=== PATIENT | female | born 1950 | race Caucasian/White ===

== ENCOUNTER 2023-03-04 15:01 | Outpatient (OUT) | payer MEDICARE, OTHER, SELFPAY ==
--- NOTE | 2023-03-04 15:12 | XR_ITS ---
The [address] [address] Patient Name: JUSTIN DUGGAN MRN: [id number] date: 1950 Sex: F Assigned Patient Location: LAB Current Patient Location: [facility] Accession/Order Number: [id number] Exam Date: 03/04/2023 15:18 Report Date: 03/06/2023 23:05 At the request of: KATE PRADO Procedure: XR chest 2V EXAM: XR chest 2V HISTORY: Shortness Of Breath R06.02 COMPARISON: None TECHNIQUE: PA and lateral chest FINDINGS: No pneumothorax, pleural effusion or consolidation. Normal heart size. No acute osseous abnormality. XR/XR chest 2V IMPRESSION: No acute cardiopulmonary process. Electronically authenticated by: AMIRAH PRAKASH Date: 03/06/2023 23:05
== END 2023-03-04 15:02 | disposition home or self-care (01) ==
LOC: LAB 15:05
PROVIDERS: PCP Family Medicine; Visit Provider Family Medicine
DX: R06.02 Shortness of breath (principal)
CPT/HCPCS: 71046

== ENCOUNTER 2023-03-08 12:47 | Outpatient (OUT) | payer MEDICARE, OTHER, SELFPAY ==
--- NOTE | 2023-03-08 | ECG_ITS ---
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
== END 2023-03-08 12:48 | disposition home or self-care (01) ==
LOC: CARD 12:48
PROVIDERS: PCP Family Medicine; Visit Provider Family Medicine
DX: R06.02 Shortness of breath (principal)
CPT/HCPCS: 93005

== ENCOUNTER 2023-07-19 10:52 | Outpatient (OUT) | payer MEDICARE, OTHER, SELFPAY ==
--- NOTE | 2023-07-19 10:55 | MM_ITS ---
Patient Name: JUSTIN DUGGAN MR#: [id number] : 1950 Exam Date: 07/19/2023 Ordering Doctor: DR Ranajna Bull M.D. RADIOLOGY REPORT PROCEDURE: MM TOMOSYNTHESIS SCREENING BI COMPARISON: MG MAMM SCREEN 3D [place] CAD, 07/12/2022. MG MAMM SCREEN [place] W CAD, 01/16/2019. INDICATIONS: screening Calculator Name NCI Breast Cancer Risk Assessment Tool 5 Year Breast Cancer Risk 1.20% Lifetime Breast Cancer Risk 3.70% Personal Breast Cancer No Personal Ovarian Cancer No Treatments Surgery, radiation, chemotherapy. Family Cancers None LOCATION: The [facility] BREAST COMPOSITION: Almost entirely fatty. FINDINGS: DIAGNOSTIC CATEGORY 2--BENIGN FINDING. NO CHANGE FROM COMPARISON. Scattered benign-appearing calcifications are present. Scattered benign-appearing lymph nodes are present. RIGHT BREAST: No significant suspicious finding. LEFT BREAST: No significant suspicious finding. RECOMMENDATIONS: ROUTINE MAMMOGRAM AND CLINICAL EVALUATION IN 12 MONTHS. PLEASE NOTE: A NORMAL MAMMOGRAM DOES NOT EXCLUDE THE POSSIBILITY OF BREAST CANCER. A CLINICALLY SUSPICIOUS PALPABLE LUMP SHOULD BE BIOPSIED. Dictated by: Sameer Smith MD on 07/19/2023 at 12:33 Approved by: Sameer Smith MD on 07/19/2023 at 12:34
== END 2023-07-19 10:53 | disposition home or self-care (01) ==
LOC: MAMMO 10:52
PROVIDERS: PCP Family Medicine; Visit Provider Family Medicine
DX: Z12.31 Encounter for screening mammogram for malignant neoplasm of breast (principal)
CPT/HCPCS: 77063; 77067

== ENCOUNTER 2024-05-07 09:13 | Outpatient (OUT) | payer MEDICARE, OTHER, SELFPAY ==
--- OUTSIDE RECORDS SUMMARY | 2024-05-07 09:38 | XMS_ITS | CCD ---
Author Organization [facility] Care Team Providers Care Vocational Adviser Name Role Phone DR RANJANA PRADO Admitting Unavailable EVE, DR RANJANA Ji Attending Unavailable EVE, DR RANJANA Ji Primary Care Unavailable JOHANNA, KATI Dawkins Consulting Unavailable EVE, DR RANJANA Ji Consulting Unavailable EVE, DR RANJANA Ji Admitting Unavailable PRADO, DR RANJANA Ji Attending Unavailable EVE, DR RANJANA Ji Primary Care Unavailable PRADO, DR RANJANA Ji Consulting Unavailable EVE, DR RANJANA Ji Admitting Unavailable PRADO, DR RANJANA Ji Attending Unavailable EVE, DR RANJANA Ji Primary Care Unavailable EVE, DR RANJANA Ji Consulting Unavailable RANJANA PRADO Primary Care Physician [phone] Ranjana Prado Unavailable Ranjana Prado Unavailable Unavailable Unavailable Dr. Ranjana Prado Primary Care Unav ailDebbie Barba Attending Unavailable Debbie Nagy Referring Unavailable Eve, Dr. Ranjana Griffin Primary Care Unav ailable Debbie Nagy Attending Unavailable Ranjana Prado MD Primary Care Provider DEBBIE NAGY Attending Unavailable RANJANA PRADO Primary Care UnavailRanjana Goldman Primary Care Unavailable Lori Modi Attending Unavailable Lori Modi Admitting Unavailable Constantine Hilton Admitting UnavailRanjana Ureña Primary Care Unavailable Constantine Hilton Attending UnavailRANJANA Ureña Referring Unavailable RANJANA PRADO Primary Care Unavailable ANAYELI STEWARD Admitting Unavailable ANAYELI STEWARD Attending Unavailable RANJANA PRADO Primary Care Unavailable Arvind Berg Attending Unavaila ble Unavailable Primary Care Provider UnavailJOSIE Dodge Attending Unavailable PRADO, RANJANA Referring Unavailable TATTERSALL, SENG Attending Unavailable PRADO, RANJANA Referring Unavailable TATTERSALL, SENG Attending Unavailable PRADO, RANJANA Referring Unavailable TATTERSALL, SENG Attending Unavailable PRADO, RANJANA Referring Unavailable TATTERSALL, SENG Attending Unavailable PRADO, RANJANA Referring Unavailable TATTERSALL, SENG Attending Unavailable PRADO, RANJANA Referring Unavailable TATTERSALL, SENG Attending Unavailable PRADO, RANJANA Referring Unavailable TATTERSALL, SENG Attending Unavailable PRADO, RANJANA Referring Unavailable TATTERSALL, SENG Attending Unavailable PRADO, RANJANA Referring Unavailable LUCAS, JOSIE Attending Unavailable PRADO, RANJANA Referring Unavailable LUCAS, JOSIE Attending Unavailable PRADO, RANJANA Referring Unavailable LUCAS, JOSIE Attending Unavailable PRADO, RANJANA Referring Unavailable Allergies Allergy Classification Reported Allergen(s) Allergy Type Date of Onset Reaction(s) Facility (4 sources) Codeine; Translations: [CODEINE] Drug Allergy 03-05-20 13 [facility] Repository (2 sources) Phenazopyridine; Translations: [Pyridium] Drug Allergy 03-05-20 13 [facility] Repository (16 sources) Codeine; Translations: [codeine] Drug Allergy 03-25-20 23 rash [facility] (20 sources) Phenazopyridine; Translations: [phenazopyridine] Drug Allergy 02-21-20 21 Vomiting (disorder), Nausea/vomitin g [facility] (12 sources) prednisoLONE; Translations: [prednisolone ophthalmic] Drug Allergy 03-17-20 21 Swollen Lymph nodes [facility] (8 sources) Codeine Drug Allergy rash Luminetx Other (1 source) Codeine Drug Allergy 07-28-19 24 [facility] Repository (1 source) Phenazopyridine Drug Allergy 07-28-19 24 [facility] Repository Medications Current Medications Medication Drug Class(es) Dates Sig (Normalized) Sig (Original) [id number] actuat albuterol 0.09 mg/actuat metered dose inhaler (8 sources) beta2-Adrenergic Agonist Start: 01-06-2023 take 2 puff(s) by inhalation every four hours as needed Albuterol Sulfate HFA 108 (90 Base) MCG/ACT 2 puff Inhalation every 4 hrs prn Dec, Active Start: 01-06-2023 take 2 puff(s) by in halation every four hours as needed Albuterol Sulfate HFA 108 (90 Base) MCG/ACT 2 puff Inhalation every 4 hrs prn Dec, Active Start: 01-06-2023 take 2 puff(s) by in halation every four hours as needed Albuterol Sulfate HFA 108 (90 Base) MCG/ACT 2 puff Inhalation every 4 hrs prn Dec, Active amLODIPine 10 mg oral tablet (10 sources) Dihydropyridine Calcium Channel Valerie Start: 04-08-2023 amLODIPine 10 mg Tab Refills(s) 0 Start Date: 04/08/23 Status: Ordered Start: 01-19-2023 End: 03-25-2023 take 1 tablet by mouth once daily amLODIPine (Norvasc) 5 mg tablet Take 1 tablet (5 mg) by mouth once daily. 0 01/19/2023 03/25/2023 Discontinued (Dose adjustment) atorvastatin 40 mg oral tablet (20 sources) HMG-CoA Reductase Inhibitor Start: 01-19-2023 take 1 tablet by mouth once daily at bedtime atorvastatin (Lipitor) 40 mg tablet Take 1 tablet (40 mg) by mouth once daily at bedtime. 0 01/19/2023 Active Start: 07-15-2022 atorvastatin R efills(s) 0 Start Date: 07/15/22 Status: Ordered Start: 07-07-2022 take 1 tablet by kim th every twenty-four hours Atorvastatin Calcium 20 MG 1 tablet Orally Once a day for 90 days Jul, Active azithromycin 250 mg oral tablet (5 sources) Macrolide Antimicrobial Start: 05-05-2023 Azithromycin 250 MG as directed Orally 2 tabs po today, then 1 tab daily x 4 more days for Apr, Active Start: 01-06-2023 Azithromycin 2 50 MG as directed Orally 2 tabs po today, then 1 tab daily x 4 more days for Dec, Not-Taking cholestyramine resin 4000 mg powder for oral suspension (14 sources) Bile Acid Sequestrant Start: 04-08-2023 cholestyramine 4 g/9 g Oral Pwdr Refill(s) 0 Start Date: 04/08/23 Status: Ordered Start: 04-08-2023 cholestyramine 4 g/9 g Oral Pwdr Refill(s) 0 Start Date: 04/08/23 Status: Ordered Start: 12-06-2022 cholestyramine (Questran) 4 gram packet DISSOLVE 1 PACKET IN WATER OR JUICE AND TAKE DAILY 0 12/06/2022 Active Start: 12-03-2022 End: 03-03-2023 Questran 4 g/9 g oral powder = 1 packet(s), Oral, Daily, dissolve in water or juice, X 90 day(s), # 90 packet(s), Refills(s) 0, [id number], cm, 12/03/22 13:35:00 EDT, Height/Length Dosing, 99.6, kg, 12/03/22 13:35:00 EDT, Weight Dosing Start Date: 12/03/22 Stop Date: 03/03/23 Status: Ordered Start: 07-15-2022 Questran 4 g/9 g oral powder = 1 packet(s), Oral, Daily, # 30 EA, Refills(s) 11, Pharmacy: [facility]/pharmacy #[id number], 168, cm, 07/15/22 13:08:00 EST, Height/Length Dosing, 100.5, kg, 07/15/22 13:08:00 EST, Weight Dosing Start Date: 07/15/22 Status: Ordered Cholestyramine P owder USE DIRECTED. Quantity: 0 Refills: 0 Ordered: 19-Jan-2023 DO Active ciprofloxacin 500 mg oral tablet (3 sources) Quinolone Antimicrobial Start: 07-15-2022 End: 07-25-2022 take 1 tablet by mouth twice daily Cipro 500 mg Tab 500 mg = 1 tab(s), Oral, BID, X 10 day(s), # 20 tab(s), Refills(s) 0, Pharmacy: [facility]/pharmacy #[id number], 168, cm, 07/15/22 13:08:00 EST, Height/Length Dosing, 100.5, kg, 07/15/22 13:08:00 EST, Weight Dosing Start Date: 07/15/22 Stop Date: 07/25/22 Status: Ordered Levsin (9 sources) Start: 07-15-2022 Levsin Refills(s) 0 Start Date: 07/15/22 Status: Ordered levothyroxine sodium 0.15 mg oral tablet (20 sources) l-Thyroxine Start: 02-07-2023 take 1 tablet by mouth once daily levothyroxine (Synthroid, Levoxyl) 150 mcg tablet Take 1 tablet (150 mcg) by mouth once daily. 0 02/07/2023 Active Start: 03-31-2020 take 1 tablet by kim th once daily Synthroid 200 mcg (0.2 mg) Tab 200 mcg = 1 tab(s), Oral, Daily, Refills(s) 0 Start Date: 03/31/20 Status: Ordered take 1 tablet by kim th once daily Levothyroxine Sodium 150 MCG TAKE 1 TABLET BY MOUTH EVERY DAY for 90 Active losartan potassium 50 mg oral tablet (20 sources) Angiotensin 2 Receptor Valerie Start: 01-19-2023 take 1 tablet by mouth twice daily losartan (Cozaar) 50 mg tablet Take 1 tablet (50 mg) by mouth 2 times a day. 0 03/24/2023 Active Start: 03-31-2020 take 1 tablet by kim th once daily losartan 50 mg Tab 50 mg = 1 tab(s), Oral, Daily, Refills(s) 0 Start Date: 03/31/20 Status: Ordered methylPREDNISolone 4 mg oral tablet (5 sources) Corticosteroid Start: 05-05-2023 methylPREDNISo lone 4 MG as directed Orally for 6 days Apr, Active Start: 01-06-2023 methylPREDNISo lone 4 MG as directed Orally for 6 days Dec, Not-Taking 24 hr metoprolol succinate 50 mg extended release oral tablet (2 sources) beta-Adrenergic Valerie Start: 01-13-2023 take 1 tablet by mouth every twenty-four hours Metoprolol Succinate ER 50 MG 1 tablet Orally Once a day Jan, Active nitroglycerin 0.4 mg sublingual tablet (2 sources) Nitrate Vasodilator Start: 01-19-2023 nitroglycerin (Nitrostat) 0.[address] 1 tablet (0.4 mg) under the tongue every 5 minutes if needed for chest pain. 0 01/19/2023 Active Start: 01-19-2023 Nitroglycerin 0.4 MG Sublingual Tablet Sublingual as directed Quantity: 25 Refills: 5 Ordered: 19-Jan-2023 Debbie Nagy MD Start : 13-Sep-2023 Active new polyethylene glycol 3350 [id number] mg / potassium chloride 1480 mg / sodium bicarbonate 5720 mg / sodium chloride 96319 mg powder for oral solution (1 source) Osmotic Laxative Start: 08-02-2022 NuLYTELY Lorenzo oral powder for reconstitution See Instructions, 1 EA, Refill(s) 0, Prior to colonoscopy., [facility]/pharmacy #[id number], 168, cm, 07/15/22 13:08:00 EST, Height/Length Dosing, 100.5, kg, 07/15/22 13:08:00 EST, Weight Dosing Start Date: 08/02/22 Status: Ordered predniSONE 20 mg oral tablet (3 sources) Start: 03-04-2023 take 2 tablets by mouth every twenty-four hours predniSONE 20 MG 2 tablets Orally Once a day for 5 days Feb, Active Psyllium (6 sources) Start: 09-03-2022 Metamucil Refi lls(s) 0 Start Date: 09/03/22 Status: Ordered Vitamin D3 (10 sources) Start: 04-01-2020 take 25 ug by mouth once daily Vitamin D3 25 mcg, Oral, Daily, Prophylaxis Start Date: 04/01/20 Status: Ordered Completed/Discontinued Medications Medication Drug Class(es) Dates Sig (Normalized) Sig (Original) aspirin 325 mg oral tablet (1 source) Platelet Aggregation Inhibitor, Nonsteroidal Anti-inflammatory Drug Start: 01-19-2023 take 1 tablet by mouth once daily Aspirin 325 MG Oral Tablet TAKE 1 TABLET DAILY. Quantity: 90 Refills: 3 Ordered: 19-Jan-2023 Debbie Nagy MD Start : 19-Jan-2023 Active Problems Active Problems Problem Classification Problem Date Documented Da te Episodic/Chronic Anal and rectal conditions (7 sources) Radiation proctitis; Translations: [Radiation proctitis] Onset: 09-03-2022 Episodic Cancer of bladder (1 source) Malignant neoplasm of overlapping sites of bladder; Translations: [Malignant neoplasm of overlapping sites of bladder] Onset: 12-20-2023 Chronic Cancer of rectum and anus (11 sources) Malignant tumor of anus; 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, unspecified] Onset: 07-15-2022 Chronic Cancer of rectum and anus (11 sources) History of malignant neoplasm of rectum; Translations: [Personal history of other malignant neoplasm of rectum, rectosigmoid junction, and anus] Onset: 09-03-2022 Episodic Chronic obstructive pulmonary disease and bronchiectasis (2 sources) Bronchitis, not specified as acute or chronic Episodic Conditions associated with dizziness or vertigo (3 sources) Vertigo; Translations: [Dizziness and giddiness] 04-19-2024 Episodic Diabetes mellitus without complication (1 source) Impaired fasting glucose Episodic Disorders of lipid metabolism (18 sources) Pure hypercholesterolemia; Translations: [Pure hypercholesterolemia, unspecified] Onset: 03-25-2023 Chronic Disorders of teeth and jaw (2 sources) Jaw pain; Translations: [Jaw pain] Onset: 03-25-2023 03-25-2023 Episodic Diverticulosis and diverticulitis (7 sources) Diverticula of intestine; Translations: [Diverticulosis of intestine, part unspecified, without perforation or abscess without bleeding] Onset: 09-03-2022 Chronic Essential hypertension (20 sources) Essential (primary) hypertension; Translations: [Essential hypertension] Onset: 07-05-2022 Chronic Hemorrhoids (7 sources) Hemorrhoids; Translations: [Unspecified hemorrhoids] Onset: 09-03-2022 Episodic Intestinal infection (10 sources) Small bowel bacterial overgrowth syndrome 07-15-2022 Episodic Nausea and vomiting (4 sources) Nausea; Translations: [Nausea] Onset: 01-07-2023 Episodic Noninfectious gastroenteritis (2 sources) Noninfectious enteritis; Translations: [Noninfective gastroenteritis and colitis, unspecified] Onset: 07-14-2022 Episodic Other and unspecified benign neoplasm (7 sources) Polyp of colon; Translations: [Polyp of colon] Onset: 09-03-2022 Episodic Other and unspecified benign neoplasm (8 sources) History of polyp of colon; Translations: [Personal history of colonic polyps] Onset: 12-03-2022 Episodic Other gastrointestinal disorders (3 sources) Intestinal malabsorption; Translations: [Other intestinal malabsorption] Onset: 01-07-2023 Chronic Other gastrointestinal disorders (1 source) Disorder of intestine; Translations: [Other specified diseases of intestine] Onset: 07-15-2022 Episodic Other gastrointestinal disorders (9 sources) Urgent desire for stool; Translations: [Fecal urgency] Onset: 09-03-2022 Episodic Other gastrointestinal disorders (6 sources) Abdominal bloating 09-03-2022 Episodic Other gastrointestinal disorders (3 sources) Non-infective diarrhea 01-07-2023 Episodic Other lower respiratory disease (1 source) Dyspnea, unspecified Episodic Other lower respiratory disease (2 sources) Dyspnea; Translations: [Other respiratory abnormalities] Onset: 03-25-2023 03-25-2023 Episodic Other lower respiratory disease (1 source) Shortness of breath Episodic Other nervous system disorders (12 sources) Impairment of balance; Translations: [Other abnormalities of gait and mobility] Episodic Other nervous system disorders (1 source) Other abnormalities of gait and mobility Episodic Other nutritional; endocrine; and metabolic disorders (3 sources) Obesity; Translations: [Obesity, unspecified] Onset: 03-25-2023 03-25-2023 Chronic Other nutritional; endocrine; and metabolic disorders (2 sources) Obesity, unspecified; Translations: [Obesity, unspecified] Onset: 03-25-2023 Chronic Other nutritional; endocrine; and metabolic disorders (2 sources) Body mass index (BMI) 35.0-35.9, adult; Translations: [Body mass index (BMI) 35.0-35.9, adult] Onset: 03-25-2023 Chronic Other screening for suspected conditions (not mental disorders or infectious disease) (5 sources) Encounter for screening mammogram for malignant neoplasm of breast; Translations: [ENC SCR MAMMO MALIG NEOPLASM BREAST] Onset: 07-12-2022 Episodic Other skin disorders (1 source) Localized swelling, mass and lump, lower limb, bilateral; Translations: [Localized swelling, mass and lump, lower limb, bilateral] Onset: 08-05-2023 Episodic Screening and history of mental health and substance abuse codes (1 source) Ex-smoker; Translations: [Personal history of tobacco use] Episodic Comment on above: 25 years; Thyroid disorders (15 sources) Other specified hypothyroidism; Translations: [Hypothyroidism, unspecified] Onset: 09-25-2021 Chronic Unclassified (1 source) Malignant neoplasm of overlapping sites of bladder (CMS-HCC) [C67.8] Onset: 12-20-2023 Past or Other Problems Problem Classification Problem Date Documented Da te Episodic/Chronic Abdominal pain (1 source) Abdominal pain; Translations: [Unspecified abdominal pain] Onset: 12-03-2022 Episodic Coronary atherosclerosis and other heart disease (2 sources) Angina pectoris; Translations: [Other and unspecified angina pectoris] Onset: 03-25-2023 Resolved: 03-25-2023 03-25-2023 Chronic Nonspecific chest pain (5 sources) Atypical chest pain; Translations: [Other chest pain] Onset: 01-21-2023 03-25-2023 Episodic Other gastrointestinal disorders (2 sources) Swollen abdomen; Translations: [Abdominal distension (gaseous)] Onset: 09-03-2022 Episodic Other gastrointestinal disorders (5 sources) Diarrhea; Translations: [Diarrhea, unspecified] Onset: 09-03-2022 Episodic Unclassified (4 sources) Finding of sensation of abdomen 01-07-2023 Unclassified (1 source) Onset: 03-25-2023 03-25-2023 Results Test Name Value Interpretation Reference Range Facility Ambulatory Visit Summaryon 1 06-10-2023 Ambulatory Visit Summary Ambulatory Visit Summary YAA DUGGAN :1950 Visit Date:04/09/2024 Ambulatory Visit Instructions Your Diagnosis Bile salt-induced diarrhea History of anal cancer History of colon polyps Your Care Team Attending Physician - Otis GATES, Arvind Garcia Primary Care Physician - RANJANA PRADO MD This Is Your Medications List Contact prescribing physician if questions or concerns amlodipine (amLODIPine 10 mg Tab) atorvastatin cholecalciferol (Vitamin D3) cholestyramine (cholestyramine 4 g/9 g Oral Pwdr) levothyroxine (Synthroid 200 mcg (0.2 mg) Tab) losartan (losartan 50 mg Tab) psyllium (Metamucil) Procedures Performed Cystourethroscopy (separate procedure) (12/21/2022), Colonoscopy (08/17/2022), Cataract extraction and insertion of intraocular lens (04/01/2020), Cataract surgery, Hernia repair, Hysterectomy. Discharge Vitals Heart Rate (Peripheral) 67 Blood Pressure 137/82 Height 168 cm Height 66 in Weight 93 kg Weight 205.03 lb BMI 32.95 Medications What How Much When Instructions Unchanged amlodipine (amLODIPine 10 mg Tab) Contact prescribing physician if questions or concerns Unchanged atorvastatin Contact prescribing physician if questions or concerns Unchanged cholecalciferol (Vitamin D3) 25 Microgram By Mouth Every day Contact prescribing physician if questions or concerns Unchanged cholestyramine (cholestyramine 4 g/ 9 g Oral Pwdr) Contact prescribing physician if questions or concerns Unchanged levothyroxine (Synthroid 200 mcg (0.2 mg) Tab) 1 Tablets By Mouth Every day Contact prescribing physician if questions or concerns Unchanged losartan (losartan 50 mg Tab) 1 Tablets By Mouth Every day Contact prescribing physician if questions or concerns Unchanged psyllium (Metamucil) Contact prescribing physician if questions or concerns Medications and Immunizations Administered Not Given influenza virus vaccine, inactivated, Patient Refuses Allergies PrednisoLONE Acetate, Ophthalmic (Swollen Lymph nodes) Pyridium (Vomiting) codeine (Rash) Problems Ongoing - Any problem that you are currently receiving treatment for. Anal cancer Bile salt-induced diarrhea Colon polyps Diverticulosis Fecal urgency Hemorrhoids History of anal cancer History of colon polyps Radiation proctitis Small intestinal bacterial overgrowth (SIBO) Historical - Any problem that you are no longer receiving treatment for. Abdominal cramping Bloating Nausea Patient Survey You may receive a survey via text or e-mail asking about your office visit. Please share your experience with us by completing your survey. We appreciate your feedback and thank you for choosing us for your care. Normal [facility] Gastroenterology Office/Clin ic Noteon 04-09-2024 Gastroenterology Office/Clinic Note Gastroenterology Office/Clinic Note Chief Complaint Constipation HPI Staff Patient is a(n) 73 year old female who presents today for a(n) 1 year follow-up. Still taking Questran? No Any GI complaints? Constipation Patient questions when should she take Metamucil fiber gummy? Denies previous EGD. Colonoscopy due 2025. Denies Fhx colon cancer. Mother had Lupus. Denies blood thinners. Denies GLP-1 agonists. Last visit 04/08/23 w/[facility]: Assessment/Plan 1. 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 Fecal urgency occurring rarely. Celiac serology was normal 08/2022. Hx. cholecystectomy in 1976. Continue Questran as needed. Educated to ensure she is drinking plenty of water. 2. History of anal cancer (Z85.048: Personal history of other malignant neoplasm of rectum, rectosigmoid junction, and anus) Hx. anal cancer in 2006 that was treated with radiation and chemotherapy. 3. History of colon polyps (Z86.010: Personal history of colonic polyps) Due for repeat colonoscopy in 2025. Colonoscopy 08/17/22 w/Dr. Morris: 1. Normal TI 2. Normal colonic mucosa, random bx taken to r/o microscopic colitis 3. 5mm sessile polyp in ascending, removed completely with cold snare 4. 5mm sessile polyp in transverse, removed completely with cold snare 5. 5mm sessile polyp in sigmoid, removed completely with cold snare 6. Moderate diverticulosis throughout the colon 7. Mild radiation proctitis, spanning for 2 cm proximal to the dentate line 8. Stage II nonbleeding internal hemorrhoids Recommendations: Repeat colonoscopy in 3 years Pathology: Final Diagnosis (Verified) A: POLYP, TRANSVERSE COLON, POLYPECTOMY: ??? HYPERPLASTIC POLYP. B: POLYP, SIGMOID COLON, POLYPECTOMY: ??? TUBULAR ADENOMA. C: COLON, RANDOM BIOPSY: ??? COLONIC MUCOSA WITHIN NORMAL LIMITS. D: POLYP, ASCENDING COLON, POLYPECTOMY: ??? TUBULAR ADENOMA. Review of Systems PHQ Score Initial Depression Screen Score: 0 SCORE Physical Exam Vitals & Measurements HR: 67(Peripheral) BP: 137/82 HT: 66 in HT: 168 cm WT: 93 kg WT: 205.03 lb BMI: 32.95 Assessment/Plan 1. 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 History of anal cancer (Z85.048: Personal history of other malignant neoplasm of rectum, rectosigmoid junction, and anus) 2007 status post chemo and radiation, last colonoscopy 2022, multiple benign polyps, repeat in 2025 3. History of colon polyps (Z86.0100: Personal history of colon polyps, unspecified) Follow-up No qualifying data available Problem List/Past Medical History Ongoing Anal cancer Bile salt-induced diarrhea Colon polyps Diverticulosis Fecal urgency Hemorrhoids History of anal cancer History of colon polyps Radiation proctitis Small intestinal bacterial overgrowth (SIBO) Historical Abdominal cramping Bloating Nausea Procedure/Surgical History Cystourethroscopy (separate procedure) (12/21/2022), Colonoscopy (08/17/2022), Cataract extraction and insertion of intraocular lens (04/01/2020), Cataract surgery, Hernia repair, Hysterectomy. Medications amLODIPine 10 mg Tab atorvastatin cholestyramine 4 g/9 g Oral Pwdr, Not taking losartan 50 mg Tab, 50 mg= 1 tab(s), Oral, Daily Metamucil, Not taking Synthroid 200 mcg (0.2 mg) Tab, 200 mcg= 1 tab(s), Oral, Daily Vitamin D3, 25 mcg, Oral, Daily Allergies PrednisoLONE Acetate, Ophthalmic (Swollen Lymph nodes) Pyridium (Vomiting) codeine (Rash) Social History Alcohol Current. Liquor. 1-2 times per week., 04/09/2024 Substance Abuse - Denies Substance Abuse, 12/03/2022 Never., 04/09/2024 Tobacco Former smoker, quit more than 30 days ago Tobacco Use:. Never Smokeless Tobacco Use:. Cigarettes, 04/09/2024 Family History Heart disease: Brother. Lupus: Mother. Immunizations Vaccine Date Status Comments influenza virus vaccine, inactivated - Not Given Patient Refuses influenza virus vaccine, inactivated - Not Given Patient Refuses influenza virus vaccine, inactivated - Not Given Patient Refuses SARS-CoV-2 (COVID-19) [id number] 07/15/2022 Recorded SARS-CoV-2 (COVID-19) mRNA BNT-162b2 vax 04/17/2021 Recorded SARS-CoV-2 (COVID-19) mRNA BNT-162b2 vax 09/03/2020 Recorded SARS-CoV-2 (COVID-19) mRNA BNT-162b2 vax 08/13/2020 Recorded pneumococcal 13-valent vaccine 02/05/2019 Recorded Normal [facility] Comment on above: Result Comment: Elec tronically Signed By: Otis GATES, Arvind Garcia\.br\Date and Time Signed: 04/09/24 10:45 EST US venous duplex LE BIon US venous duplex LE [facility] [place] [address] Ultrasound Report Signed Patient: Yaa Duggan MR#: [id number] : 1950 Acct:[id number] Age/Sex: 72 / F ADM Date: 08/05/23 Loc: Room: Type: [facility] Attending Dr: Constantine Hilton MD Ordering Provider: Constantine Hilton MD Date of Service: 08/05/23 US/US venous duplex LE BI: R22.43 - Localized swelling, mass and lump, lower limb, b... Copies to: Constantine Hilton MD Bilateral lower extremity full functional venous duplex examination Indication for study: Swollen legs PROCEDURE: Color-flow duplex scanning is used to interrogate the venous anatomy of both lower extremities. There is no evidence for deep vein thrombosis in either leg. Bilaterally the common femoral vein, femoral vein, and popliteal vein show good compressibility, color-flow, and augmentation. There is greater than 5 seconds of reflux at the right saphenofemoral junction. The right greater saphenous vein is 5 mm below the saphenofemoral junction and then remains small throughout the rest of the limb. It does give rise to extensive varicosities that are 2 mm in diameter. Several perforators are noted but none are greater than 3 mm. The right lesser saphenous vein is competent and normal in size. In the patient's left lower extremity there is reflux in the saphenofemoral junction for 4 seconds and then continuous reflux in the first portion of the greater saphenous vein for greater than 5 seconds. The deep venous system is competent. There is greater than 5 seconds of reflux in the lesser saphenous vein. The left greater saphenous vein is 5 mm below the saphenofemoral junction but then is normal size throughout the thigh. It does give rise to 2 to 3 mm varicosities. The lesser saphenous vein is normal in size. US/US venous duplex LE BI IMPRESSION: No evidence for deep vein thrombosis in either leg. There is severe reflux in the right greater saphenous vein for greater than 5 seconds. There is greater than 5 seconds of reflux in the left greater saphenous vein. Scattered varicosities are noted in both lower extremities. Impression dictated by: Kenneth Santos M.D.08/09/2023 12:31 PM Dictation Location: [place] [address] Tech: Kristen Ines Transcribed By: RUTHANN 08/09/23 1231 Dictated By: Kenneth Santos MD 08/09/23 1229 Signed By: 08/09/23 1231 Normal [facility] Blood Urea Nitrogenon 2022 Urea nitrogen [Mass/Vol] 15 mg/dL Normal 7-25 [facility] Comment on above: Performed By: #### C REAT, CBC, BUN, LYTES, LIPID, PP #### [place] [id number] [facility] Coagulation Profileon 2022 aPTT Coag (Bld) [Time] 28.2 s Normal 25.1-36.5 [facility] Comment on above: Result Comment: A he matocrit value greater than 55% may lead to inaccurate results in coagulation testing. Patients having hematocrit values >55% require a special collection tube for coagulation studies. Please contact the laboratory at [phone] for redraw instructions. PERFORMED BY: [place] [address] PATHOLOGIST BROOM WORKER LYLY RIZO M.D. Performed By: #### C REAT, CBC, BUN, LYTES, LIPID, PP #### [address] INR Coag (PPP) [Relative time] 1.0 {INR} Normal [facility] Comment on above: Result Comment: INR Therapeutic Range A) Pre- and Peroperative OAT started two weeks before surgery. NOT HIP SURGERY: 1.5 - 2.5 HIP SURGERY: 2 - 3 B) Primary and secondary prevention of venous THROMBOSIS: 2 - 3 C) Active venous thrombosis, pulmonary embolism and prevention of recurrent venous thrombosis: 2 - 3 D) Prevention of arterial thromboembolism including patients with mechanical heart valves: 3 - 4.5 Performed By: #### C REAT, CBC, BUN, LYTES, LIPID, PP #### [address] PT Coag (PPP) [Time] 11.6 s Normal 9.0-12.9 [facility] Comment on above: Result Comment: A he matocrit value greater than 55% may lead to inaccurate results in coagulation testing. Patients having hematocrit values >55% require a special collection tube for coagulation studies. Please contact the laboratory at [phone] for redraw instructions. Performed By: #### C REAT, CBC, BUN, LYTES, LIPID, PP #### [place] [id number] [facility] Complete Blood Count Auto Di ffon 09-15-2023 Basophils (Bld) [#/Vol] 0.0 10*3/uL Normal 0.0-0.2 [facility] Comment on above: Result Comment: PERF ORMED BY: [place] [address] PATHOLOGIST BROOM WORKER LYLY RIZO M.D. Performed By: #### C REAT, CBC, BUN, LYTES, LIPID, PP #### [address] Basophils/100 WBC (Bld) 0.4 % Normal . [facility] Comment on above: Performed By: #### C REAT, CBC, BUN, LYTES, LIPID, PP #### [address] Eosinophils (Bld) [#/Vol] 0.1 10*3/uL Normal 0.0-0.45 [facility] Comment on above: Performed By: #### C REAT, CBC, BUN, LYTES, LIPID, PP #### [address] Eosinophils/100 WBC (Bld) 1.3 % Normal . [facility] Comment on above: Performed By: #### C REAT, CBC, BUN, LYTES, LIPID, PP #### [address] Erythrocyte distribution width (RBC) [Ratio] 14.0 % Normal 11.9-15.3 [facility] Comment on above: Performed By: #### C REAT, CBC, BUN, LYTES, LIPID, PP #### [address] Hematocrit (Bld) [Volume fraction] 40.4 % Normal 34.0-46.4 [facility] Comment on above: Performed By: #### C REAT, CBC, BUN, LYTES, LIPID, PP #### [address] Hemoglobin (Bld) [Mass/Vol] 13.5 g/dL Normal 11.8-15.4 [facility] Comment on above: Performed By: #### C REAT, CBC, BUN, LYTES, LIPID, PP #### [address] Lymphocytes (Bld) [#/Vol] 1.9 10*3/uL Normal 1.00-4.8 [facility] Comment on above: Performed By: #### C REAT, CBC, BUN, LYTES, LIPID, PP #### [address] Lymphocytes/100 WBC (Bld) 30.6 % Normal . [facility] Comment on above: Performed By: #### C REAT, CBC, BUN, LYTES, LIPID, PP #### [address] MCH (RBC) [Entitic mass] 29.1 pg Normal 24.7-34.3 [facility] Comment on above: Performed By: #### C REAT, CBC, BUN, LYTES, LIPID, PP #### [address] MCV (RBC) [Entitic vol] 86.8 fL Normal 80-100 [facility] Comment on above: Performed By: #### C REAT, CBC, BUN, LYTES, LIPID, PP #### [address] Mean Corpuscular HGB Conc 33.5 g/dL Normal 32.0-35.0 [facility] Comment on above: Performed By: #### C REAT, CBC, BUN, LYTES, LIPID, PP #### [address] Monocytes (Bld) [#/Vol] 0.6 10*3/uL Normal 0.0-0.8 [facility] Comment on above: Performed By: #### C REAT, CBC, BUN, LYTES, LIPID, PP #### [address] Monocytes/100 WBC (Bld) 9.1 % Normal . [facility] Comment on above: Performed By: #### C REAT, CBC, BUN, LYTES, LIPID, PP #### [address] Neutrophils (Bld) [#/Vol] 3.6 10*3/uL Normal 1.8-7.7 [facility] Comment on above: Performed By: #### C REAT, CBC, BUN, LYTES, LIPID, PP #### [address] Neutrophils/100 WBC (Bld) 58.6 % Normal . [facility] Comment on above: Performed By: #### C REAT, CBC, BUN, LYTES, LIPID, PP #### [address] NRBC% 0.1 /100{WBC} Normal 0-0.5 [facility] Comment on above: Performed By: #### C REAT, CBC, BUN, LYTES, LIPID, PP #### [address] Platelet mean volume (Bld) [Entitic vol] 8.2 fL Normal 6.3-10.7 [facility] Comment on above: Performed By: #### C REAT, CBC, BUN, LYTES, LIPID, PP #### [address] Platelets (Bld) [#/Vol] 208 10*3/uL Normal 150-450 [facility] Comment on above: Performed By: #### C REAT, CBC, BUN, LYTES, LIPID, PP #### [address] RBC (Bld) [#/Vol] 4.65 10*6/uL Normal 3.60-5.00 [facility] Comment on above: Performed By: #### C REAT, CBC, BUN, LYTES, LIPID, PP #### [address] WBC (Bld) [#/Vol] 6.1 10*3/uL Normal 3.8-11.[address] [facility] Comment on above: Performed By: #### C REAT, CBC, BUN, LYTES, LIPID, PP #### [facility] [address] [place] [address] [place] Creatinineon 01-21-2023 Creatinine [Mass/Vol] 0.84 mg/dL Normal 0.60-1.20 [facility] Comment on above: Performed By: #### C REAT, CBC, BUN, LYTES, LIPID, PP #### [facility] [address] Creatinine Clr Calc Pharmacy 73.20 [facility] Comment on above: Performed By: #### C REAT, CBC, BUN, LYTES, LIPID, PP #### [facility] [address] GFR/1.73 sq M.predicted MDRD (S/P/Bld) [Vol rate/Area] mL/min/{1.73_m2} [facility] Comment on above: Performed By: #### C REAT, CBC, BUN, LYTES, LIPID, PP #### [facility] [address] ECG 12 lead ECGon 01-21-2023 ECG 12 lead ECG [facility] [place] [address] Electrocardiograph Report Signed Patient: Yaa Duggan MR#: [id number] : 1950 Acct:[id number] Age/Sex: 72 / F ADM Date: 01/21/23 Loc: Room: Type: [facility] Attending Dr: Lori Modi DO Ordering Provider: Lori Modi DO Date of Service: 01/21/23 ECG/ECG 12 lead ECG: pre [facility] Copies to: Test Reason : Blood Pressure : / mmHG Vent. Rate : 058 BPM Atrial Rate : 058 BPM P-R Int : 142 ms QRS Dur : 076 ms QT Int : 426 ms P-R-T Axes : 032 -23 033 degrees QTc Int : 418 ms Sinus bradycardia Otherwise normal ECG No previous ECGs available Confirmed by STAN LARA DO ([id number]) on 01/21/2023 7:26:09 PM Referred By: Electronically Signed By:STAN LARA DO Transcribed By: MUS Signed By Stan Lara DO 01/21 [facility] Electrolyteson 01-21-2023 Anion gap [Moles/Vol] 10.7 mmol/L Normal 6.0-15.0 [facility] Comment on above: Performed By: #### C REAT, CBC, BUN, LYTES, LIPID, PP #### [facility] [address] Chloride [Moles/Vol] 106 mmol/L Normal 98-107 [facility] Comment on above: Performed By: #### C REAT, CBC, BUN, LYTES, LIPID, PP #### [facility] [address] CO2 [Moles/Vol] 27.9 mmol/L Normal 21.0-31.0 [facility] Comment on above: Performed By: #### C REAT, CBC, BUN, LYTES, LIPID, PP #### [facility] [address] Potassium [Moles/Vol] 3.6 mmol/L Normal 3.5-5.1 [facility] Comment on above: Performed By: #### C REAT, CBC, BUN, LYTES, LIPID, PP #### [facility] [address] Sodium [Moles/Vol] 141 mmol/L Normal 136-[address] [facility] Comment on above: Performed By: #### C REAT, CBC, BUN, LYTES, LIPID, PP #### [facility] [address] Lipid Panelon 01-21-2023 Cholesterol [Mass/Vol] 186 mg/dL Normal 140-200 [facility] Comment on above: Result Comment: Chol less than 200 mg/dl low risk Chol 201-239 mg/dl borderline risk Chol 240 mg/dl and greater high risk Performed By: #### C REAT, CBC, BUN, LYTES, LIPID, PP #### [facility] [address] Cholesterol in HDL [Mass/Vol] 46 mg/dL Normal 23-92 [facility] Comment on above: Result Comment: HDL CHOL ATP-III CLASSIFICATION Cardiovascular Risk HDL > or equal to 60 mg/dL LOW HDL < 40 mg/dL HIGH Performed By: #### C REAT, CBC, BUN, LYTES, LIPID, PP #### [facility] [address] Cholesterol.total/Cho lesterol in HDL [Mass ratio] 4.0 {ratio} Normal <5.0 [facility] Comment on above: Result Comment: PERF ORMED BY: [place] [address] PATHOLOGIST BROOM WORKER LYLY RIZO M.D. Performed By: #### C REAT, CBC, BUN, LYTES, LIPID, PP #### [address] LDL Cholesterol,Calculate d 108 mg/dL High 0-100 [facility] Comment on above: Result Comment: LDL ATP III CLASSIFICATION LDL less than 100 mg/dL Optimal LDL 100-129 mg/dL Near or above optimal LDL 130-159 mg/dL Borderline high LDL 160-189 mg/dL High LDL greater than 189 mg/dL Very high Performed By: #### C REAT, CBC, BUN, LYTES, LIPID, PP #### [address] Triglyceride w/Reflex 161 mg/dL High 0-149 [facility] Comment on above: Result Comment: TRIG ATP III CLASSIFICATION TRIG less than 150 mg/dL Normal TRIG 150-199 mg/dL Borderline high TRIG 200-500 mg/dL High TRIG greater than 500 mg/dL Very high Standard traceable to the Center for Disease Conrtrol and Prevention (CDC) test method. Performed By: #### C REAT, CBC, BUN, LYTES, LIPID, PP #### [facility] [address] VLDL CHOLESTEROL 32 mg/dL Normal [facility] Comment on above: Performed By: #### C REAT, CBC, BUN, LYTES, LIPID, PP #### [facility] [address] Office Visit (Cardiology)on 01-19-2023 Follow-up visit Diagnoses/Problems Assessed Family history of Carotid stenosis, non-symptomatic : Mother Family history of Carotid artery plaque : Mother Angina pectoris (413.9) (I20.9) Jaw pain (784.92) (R68.84) Dyspnea (786.09) (R06.00) Benign essential hypertension (401.1) (I10) Hyperlipidemia (272.4) (E78.5) Former smoker (V15.82) (Z87.891) 25 years Class 1 obesity with body mass index (BMI) of 34.0 to 34.9 in adult (278.00,V85.34) (E66.9,Z68.34) Orders Angina pectoris Start: Aspirin 325 MG Oral Tablet; TAKE 1 TABLET DAILY Start: Nitroglycerin 0.4 MG Sublingual Tablet Sublingual; as directed Angina pectoris, Benign essential hypertension Start: amLODIPine Besylate 5 MG Oral Tablet (Norvasc); TAKE 1 TABLET DAILY Basic Metabolic Panel; Status:Active - Retrospective Authorization; Requested for:[id number]; Angina pectoris, Dyspnea, Jaw pain Cardiac Catheterization Lab Procedures; Status:Active - Retrospective Authorization; Requested for:[id number]; Benign essential hypertension Start: Losartan Potassium 50 MG Oral Tablet; TAKE 1 TABLET TWICE DAILY Class 1 obesity with body mass index (BMI) of 34.0 to 34.9 in adult Healthy Weight Tips; Status:Complete - Retrospective Authorization; Done: [id number] Some eating tips that can help you lose weight.; Status:Complete - Retrospective Authorization; Done: [id number] Dyspnea IO EKG Electrocardiogram- 12 Lead; Status:Complete; Done: [id number] Hyperlipidemia Start: Atorvastatin Calcium 40 MG Oral Tablet (Lipitor); TAKE 1 TABLET AT BEDTIME ALT - Alanine Aminotransferase, Serum; Status:Active - Retrospective Authorization; Requested for:[id number]; AST; Status:Active - Retrospective Authorization; Requested for:[id number]; Lipid Panel; Status:Active - Retrospective Authorization; Requested for:[id number]; SocHx: Former smoker Tobacco Use Screening; Status:Complete; Done: [id number] Unlinked Stop: Atorvastatin Calcium 20 MG Oral Tablet Stop: Losartan Potassium 50 MG Oral Tablet Stop: Metoprolol Succinate ER 50 MG Oral Tablet Extended Release 24 Hour Patient Instructions Please bring all medicines, vitamins, and herbal supplements with you when you come to the office. Prescriptions will not be filled unless you are compliant with your follow up appointments or have a follow up appointment scheduled as per instruction of your physician. Refills should be requested at the time of your visit. Heart cath-tuesday Follow-up after testing completed Increase Loartan to 50mg one tablet two times daily Stop Toprol Start Norvasc 5 mg one daily Start aspirin 325 mg one daily Increase Lipitor to 40mg daily Nitrostat The provider reviewed the following test(s) and result(s) with the patient: ECG Chief Complaint YAA DUGGAN is being seen for a consultation for chest pain, dyspnea and jaw pain. 72-year-old white female who is been referred to me for evaluation of symptoms of dyspnea on exertion, chest pain and jaw pain. The patient recently has been noticing significant limitation of physical activities of progressive dyspnea, climbing 1 flight of stairs for is very difficult. She has been experiencing neck pain and jaw pain with activities, she has severe uncontrolled hyperlipidemia with LDL cholesterol around 200 mg/dL while she is on 20 mg daily of atorvastatin. Her brother had coronary bypass surgery in his 50s. She has had 25 years tobacco use in the past which she ended several years ago. She has hypertension which has been uncontrolled lately. She is nondiabetic but her last A1c was 5.8 from June 2022. She is prediabetic. She had no palpitations syncope or near syncope no claudications. She has no gastrointestinal symptoms and no urinary symptoms. Her pressure is elevated today as noted. She was started recently by her PCP on metoprolol which led to dropping her blood pressure significantly. Her cardiac and pulmonary examination were normal. EKG revealed normal sinus rhythm with no acute changes. Assessment/recommenda tions: 1?symptoms highly suggestive of crescendo angina. Patient has multiple uncontrolled risk factor for CAD. We discussed the options available for evaluation. I believe at this stage invasive cardiac evaluation is the most safe and cost effective way of identifying her problem. I discussed with the patient and her the procedure with benefits potential risks and other options of evaluation. We agreed to proceed with cardiac catheterization hopefully this week. Meanwhile aspirin will be started and we will double the atorvastatin up to 40 mg daily. 2?hypertension that is presently uncontrolled. We will add amlodipine 5 mg daily, discontinue metoprolol and increase losartan up to 50 mg twice daily. 3?severe hyperlipidemia uncontrolled on 20 mg daily of atorvastatin. We will double the dose and follow lipid profile along with lifestyle changes. 4?class I obesity, will address issue of increasing activities once we resolve the issue of her progressive (more content not included)... Normal [employer] Tobacco Screening.on 023 Adult depression screening assessment No [facility] 250 DO Work Phone: Tobacco use status [facility] b) No [facility] 250 DO Work Phone: MICRO OTHER TESTSOrdered By: Ester Hernandez on 07-20-2022 Fecal WBC Lactoferrin Negative (07/20/22 9:30 AM) Normal Negative [facility] Man Sero MG MAMM SCREEN 3D THOMPSON CADon 07-12-2022 MG MAMM SCREEN 3D THOMPSON CAD Patient: YAA DUGGAN Exam Date: 07/12/2022 : 1950 Gender:F Ordering : DR RANJANA PRADO M.D. Admission #: [id number] Family : Order #: [id number] CLICK HERE TO VIEW EXAM RADIOLOGY REPORT PROCEDURE: MAMMOGRAM SCREENING 3D BILATERAL CAD COMPARISON: MG MAMM THOMPSON SCRN W CAD DIG, 04/10/2013. MG MAMM SCREEN THOMPSON W CAD, 01/16/2019. INDICATIONS: Screening mammography Calculator Name NCI Breast Cancer Risk Assessment Tool 5 Year Breast Cancer Risk 1.20% Lifetime Breast Cancer Risk 3.90% Personal Breast Cancer No Personal Ovarian Cancer No Treatments Surgery, radiation, chemotherapy. Family Cancers None LOCATION: [facility] BREAST COMPOSITION: Almost entirely fatty. FINDINGS: DIAGNOSTIC CATEGORY 1--NEGATIVE. NO CHANGE FROM COMPARISON ASSESSMENT. Scattered benign-appearing calcifications are present. Scattered benign-appearing lymph nodes are present. RIGHT BREAST: No significant suspicious finding. LEFT BREAST: No significant suspicious finding. RECOMMENDATIONS: ROUTINE MAMMOGRAM AND CLINICAL EVALUATION IN 12 MONTHS. PLEASE NOTE: A NORMAL MAMMOGRAM DOES NOT EXCLUDE THE POSSIBILITY OF BREAST CANCER. A CLINICALLY SUSPICIOUS PALPABLE LUMP SHOULD BE BIOPSIED. Dictated by: Kati Smith MD on 07/12/2022 at 11:06 Approved by: Kati Smith MD on 07/12/2022 at 11:07 Normal [facility] CBC AUTO DIFFon 07-05-2022 BASO # 0.0 103/ul Normal 0.0-0.1 [facility] Comment on above: Performed By: #### C BC #### [facility] [address] [place] [address] Dr. Vitaliy Varela Basophils/100 WBC (Bld) 0.4 % Normal 0.2-2.0 [facility] Comment on above: Performed By: #### C BC #### [facility] [address] [place] [address] Dr. Vitaliy Varela EO # 0.1 103/ul Normal 0.0-0.7 [facility] Comment on above: Performed By: #### C BC #### [facility] [address] [place] [address] Dr. Vitaliy Varela Eosinophils/100 WBC (Bld) 1.6 % Normal 0.9-7.0 [facility] Comment on above: Performed By: #### C BC #### [facility] [address] [place] [address] Dr. Vitaliy Varela Erythrocyte distribution width (RBC) [Ratio] 13.7 % Normal 11.0-15.0 [facility] Comment on above: Performed By: #### C BC #### [facility] [address] [place] [address] Dr. Vitaliy Varela Hematocrit (Bld) [Volume fraction] 43.8 % Normal 36.0-48.0 [facility] Comment on above: Performed By: #### C BC #### [facility] [address] [place] [address] Dr. Vitaliy Varela Hemoglobin (Bld) [Mass/Vol] 14.5 g/dL Normal 12.0-16.0 [facility] Comment on above: Performed By: #### C BC #### [facility] [address] [place] [address] Dr. Vitaliy Varela IG # 0.01 10e3/ul Normal 0.00-0.03 [facility] Comment on above: Performed By: #### C BC #### [facility] [address] [place] [address] Dr. Vitaliy Varela IG % 0.2 % Normal 0.0-0.5 [facility] Comment on above: Performed By: #### C BC #### [facility] [address] [place] [address] Dr. Vitaliy Varela LYMPH # 1.7 103/ul Normal 1.2-3.8 [facility] Comment on above: Performed By: #### C BC #### [facility] [address] [place] [address] Dr. Vitaliy Varela Lymphocytes/100 WBC (Bld) 31.3 % Normal 20.5-60.0 [facility] Comment on above: Performed By: #### C BC #### [facility] [address] [place] [address] Dr. Vitaliy Varela MANUAL DIFF REQ NO Normal [facility] Comment on above: Performed By: #### C BC #### [facility] [address] [place] [address] Dr. Vitaliy Varela MCH (RBC) [Entitic mass] 27.8 pg Normal 26.7-34.0 [facility] Comment on above: Performed By: #### C BC #### [facility] [address] [place] [address] Dr. Vitaliy Varela MCHC (RBC) [Mass/Vol] 33.1 g/dL Normal 29.9-35.2 [facility] Comment on above: Performed By: #### C BC #### [facility] [address] [place] [address] Dr. Vitaliy Varela MCV (RBC) [Entitic vol] 84.1 fL Normal 81.0-99.0 [facility] Comment on above: Performed By: #### C BC #### [facility] [address] [place] [address] Dr. Vitaliy Varela MONO # 0.5 103/ul Normal 0.3-0.8 [facility] Comment on above: Performed By: #### C BC #### [facility] [address] [place] [address] Dr. Vitaliy Varela Monocytes/100 WBC (Bld) 9.3 % Normal 1.7-12.0 [facility] Comment on above: Performed By: #### C BC #### [facility] [address] [place] [address] Dr. Vitaliy Varela NEUT # 3.2 103/ul Normal 1.4-6.5 [facility] Comment on above: Performed By: #### C BC #### [facility] [address] [place] [address] Dr. Vitaliy Varela Neutrophils/100 WBC (Bld) 57.2 % Normal 43.0-75.0 [facility] Comment on above: Performed By: #### C BC #### [facility] [address] [place] [address] Dr. Vitaliy Varela Platelet mean volume (Bld) [Entitic vol] 9.2 fL Critically low 9.5-13.5 [facility] Comment on above: Performed By: #### C BC #### [facility] [address] [place] [address] Dr. Vitaliy Varela PLT 227 103/ul Normal 150-450 [facility] Comment on above: Performed By: #### C BC #### [facility] [address] [place] [address] Dr. Vitaliy Varela RBC 5.21 106/ul Normal 4.20-5.40 [facility] Comment on above: Performed By: #### C BC #### [facility] [address] [place] [address] Dr. Vitaliy Varela WBC 5.5 103/ul Normal 4.0-11.0 [facility] Comment on above: Performed By: #### C BC #### [facility] [address] [place] [address] Dr. Vitaliy Varela FREE T4on 07-05-2022 Free T4 [Mass/Vol] 1.44 ng/dL Normal 0.76-1.46 [facility] Comment on above: Performed By: #### F T4 #### [facility] [address] [address] [address] Vitaliy Varela GLYCOHEMOGLOBIN A1Con 2022 ADA RECOMMENDATION SEE BELOW Normal [facility] Comment on above: Result Comment: ADA RECOMMENDED LIMIT 4.0 - 6.0 ADA THERAPEUTIC TARGET < 7.0 ACTION SUGGESTED > 7.0 Performed By: #### A 1C #### [facility] [address] [address] [address] Vitaliy Varela Glucose [Mass/Vol] 120 mg/dL Normal [facility] Comment on above: Performed By: #### A 1C #### [facility] [address] [place] [address] Dr. Vitaliy Varela HbA1c (Bld) [Mass fraction] 5.8 % Normal 4.5-6.2 [facility] Comment on above: Performed By: #### A 1C #### [facility] [address] [place] [address] Dr. Vitaliy Varela LIPID PROFILEon 07-05-2022 CHOL-HDL RATIO NORM SEE BELOW Normal [facility] Comment on above: Result Comment: 3.3 - 4.4 LOW RISK 4.4 - 7.1 AVERAGE RISK 7.1 - 11.0 MODERATE RISK >11.0 HIGH RISK Performed By: #### C MP, TSH, LIPID #### [facility] [address] [place] [address] Dr. Vitaliy Varela Cholesterol [Mass/Vol] 287 mg/dL Critically high <=200 [facility] Comment on above: Performed By: #### C MP, TSH, LIPID #### [facility] [address] [place] [address] Dr. Vitaliy Varela Cholesterol in HDL [Mass/Vol] 50 mg/dL Normal 40-60 [facility] Comment on above: Performed By: #### C MP, TSH, LIPID #### [facility] [address] [address] [address] Vitaliy Varela Cholesterol in LDL [Mass/Vol] 200.4 mg/dL Normal [facility] Comment on above: Performed By: #### C MP, TSH, LIPID #### [facility] [address] [address] [address] Vitaliy Varela Cholesterol.total/Cho lesterol in HDL [Mass ratio] 5.7 {ratio} Normal [facility] Comment on above: Performed By: #### C MP, TSH, LIPID #### [facility] [address] [address] [address] Vitaliy Varela HDL NORMAL > or = 60 mg/dl - LO W CARDIOVASCULAR RISK <40 mg/dl - HIGH CARDIOVASCULAR RISK Normal [facility] Comment on above: Performed By: #### C MP, TSH, LIPID #### [facility] [address] [address] [address] Vitaliy Varela LDL CALC NORMAL SEE BELOW Normal [facility] Comment on above: Result Comment: <100 mg/dl OPTIMAL 100 - 129 mg/dl NEAR OR ABOVE OPTIMAL 130 - 159 mg/dl BORDERLINE HIGH 160 - 189 mg/dl HIGH >190 mg/dl VERY HIGH Performed By: #### C MP, TSH, LIPID #### [facility] [address] [address] [address] Vitaliy Varela Triglyceride [Mass/Vol] 183 mg/dL Critically high <=150 [facility] Comment on above: Performed By: #### C MP, TSH, LIPID #### [facility] [address] [address] [address] Vitaliy Varela VLDL CALC 36.6 mg/dL Normal [facility] Comment on above: Performed By: #### C MP, TSH, LIPID #### [facility] [address] [address] [address] Vitaliy Varela PROF 14(COMP METB)on 023 Albumin [Mass/Vol] 3.9 g/dL Normal 3.4-5.0 [facility] Comment on above: Performed By: #### C MP, TSH, LIPID ####[facility] [address] [address]Dr. Vitaliy Varela Albumin/Globulin [Mass ratio] 1.1 {ratio} Normal [facility] Comment on above: Performed By: #### C MP, TSH, LIPID ####[facility] [address] [id number]. Vitaliy Varela ALP [Catalytic activity/Vol] 85 U/L Normal 46-116 [facility] Comment on above: Performed By: #### C MP, TSH, LIPID ####[facility] [address] [id number]. Vitaliy Varela ALT [Catalytic activity/Vol] 38 U/L Normal 14-59 [facility] Comment on above: Performed By: #### C MP, TSH, LIPID ####[facility] [address] [address]Dr. Vitaliy Varela Anion gap [Moles/Vol] 13.1 mmol/L Normal [facility] Comment on above: Performed By: #### C MP, TSH, LIPID ####[facility] [address] [address]Dr. Vitaliy Varela AST [Catalytic activity/Vol] 32 U/L Normal 15-37 [facility] Comment on above: Performed By: #### C MP, TSH, LIPID ####[facility] [address] [id number]. Vitaliy Varela Bilirubin [Mass/Vol] 0.8 mg/dL Normal 0.2-1.0 [facility] Comment on above: Performed By: #### C MP, TSH, LIPID ####[facility] [address] [id number]. Vitaliy Varela Calcium [Mass/Vol] 8.6 mg/dL Normal 8.5-10.1 [facility] Comment on above: Performed By: #### C MP, TSH, LIPID ####[facility] [address] [id number]. Vitaliy Varela Chloride [Moles/Vol] 103 mmol/L Normal 98-107 [facility] Comment on above: Performed By: #### C MP, TSH, LIPID ####[facility] [address] [id number]. Vitaliy Varela CO2 [Moles/Vol] 26.6 mmol/L Normal 21.0-32.0 [facility] Comment on above: Performed By: #### C MP, TSH, LIPID ####[facility] [address] [address]Dr. Vitaliy Varela Creatinine [Mass/Vol] 0.72 mg/dL Normal 0.55-1.02 [facility] Comment on above: Performed By: #### C MP, TSH, LIPID ####[facility] [address] [id number]. Vitaliy Varela EGFR-AF DUTCH >60 Normal >=60 [facility] Comment on above: Performed By: #### C MP, TSH, LIPID ####[facility] [address] [address]Dr. Vitaliy Varela EGFR-NON AF DUTCH >60 Normal >=60 [facility] Comment on above: Performed By: #### C MP, TSH, LIPID ####[facility] [address] [address]Dr. Vitaliy Varela Globulin (S) [Mass/Vol] 3.7 g/dL Normal [facility] Comment on above: Performed By: #### C MP, TSH, LIPID ####[facility] [address] [address]Dr. Vitaliy Varela Glucose [Mass/Vol] 108 mg/dL Critically high 74-106 [facility] Comment on above: Performed By: #### C MP, TSH, LIPID ####[facility] [address] [address]Dr. Vitaliy Varela Potassium [Moles/Vol] 3.7 mmol/L Normal 3.5-5.1 [facility] Comment on above: Performed By: #### C MP, TSH, LIPID ####[facility] [address] [address]Dr. Vitaliy Varela Protein [Mass/Vol] 7.6 g/dL Normal 6.4-8.2 [facility] Comment on above: Performed By: #### C MP, TSH, LIPID ####[facility] [address] [address]Dr. Vitaliy Varela Sodium [Moles/Vol] 139 mmol/L Normal 136-145 [facility] Comment on above: Performed By: #### C MP, TSH, LIPID ####[facility] [address] [address]Dr. Vitaliy Varela Urea nitrogen [Mass/Vol] 13.0 mg/dL Normal 7.0-18.0 [facility] Comment on above: Performed By: #### C MP, TSH, LIPID ####[facility] [address] [address]Dr. Vitaliy Varela Urea nitrogen/Creatinine [Mass ratio] 18.1 mg/mg Normal [facility] Comment on above: Performed By: #### C MP, TSH, LIPID ####[facility] [address] [address]Dr. Vitaliy Varela TSHon 07-05-2022 TSH 0.570 uIU/mL Normal 0.358-3.740 [facility] Comment on above: Performed By: #### C MP, TSH, LIPID ####[facility] [address] [address]Dr. Vitaliy Varela CBC AUTO DIFFon 09-21-2021 BASO # 0.0 103/ul Normal 0.0-0.1 [facility] Comment on above: Performed By: #### C BC #### [facility] [address] [place] [address] Dr. Vitaliy Varela Basophils/100 WBC (Bld) 0.4 % Normal 0.2-2.0 [facility] Comment on above: Performed By: #### C BC #### [facility] [address] [place] [address] Dr. Vitaliy Varela EO # 0.1 103/ul Normal 0.0-0.7 [facility] Comment on above: Performed By: #### C BC #### [facility] [address] [place] [address] Dr. Vitaliy Varela Eosinophils/100 WBC (Bld) 2.6 % Normal 0.9-7.0 [facility] Comment on above: Performed By: #### C BC #### [facility] [address] [place] [address] Dr. Vitaliy Varela Erythrocyte distribution width (RBC) [Ratio] 14.2 % Normal 11.0-15.0 [facility] Comment on above: Performed By: #### C BC #### [facility] [address] [place] [address] Dr. Vitaliy Varela Hematocrit (Bld) [Volume fraction] 41.0 % Normal 36.0-48.0 [facility] Comment on above: Performed By: #### C BC #### [facility] [address] [place] [address] Dr. Vitaliy Varela Hemoglobin (Bld) [Mass/Vol] 13.1 g/dL Normal 12.0-16.0 [facility] Comment on above: Performed By: #### C BC #### [facility] [address] [place] [address] Dr. Vitaliy Varela IG # 0.03 10e3/ul Normal 0.00-0.03 [facility] Comment on above: Performed By: #### C BC #### [facility] [address] [place] [address] Dr. Vitaliy Varela IG % 0.6 % Critically high 0.0-0.5 [facility] Comment on above: Performed By: #### C BC #### [facility] [address] [place] [address] Dr. Vitaliy Varela LYMPH # 1.6 103/ul Normal 1.2-3.8 [facility] Comment on above: Performed By: #### C BC #### [facility] [address] [place] [address] Dr. Vitaliy Varela Lymphocytes/100 WBC (Bld) 29.8 % Normal 20.5-60.0 [facility] Comment on above: Performed By: #### C BC #### [facility] [address] [place] [address] Dr. Vitaliy Varela MANUAL DIFF REQ NO Normal [facility] Comment on above: Performed By: #### C BC #### [facility] [address] [place] [address] Dr. Vitaliy Varela MCH (RBC) [Entitic mass] 27.9 pg Normal 26.7-34.0 [facility] Comment on above: Performed By: #### C BC #### [facility] [address] [place] [address] Dr. Vitaliy Varela MCHC (RBC) [Mass/Vol] 32.0 g/dL Normal 29.9-35.2 [facility] Comment on above: Performed By: #### C BC #### [facility] [address] [place] [address] Dr. Vitaliy Varela MCV (RBC) [Entitic vol] 87.2 fL Normal 81.0-99.0 [facility] Comment on above: Performed By: #### C BC #### [facility] [address] [place] [address] Dr. Vitaliy Varela MONO # 0.6 103/ul Normal 0.3-0.8 [facility] Comment on above: Performed By: #### C BC #### [facility] [address] [place] [address] Dr. Vitaliy Varela Monocytes/100 WBC (Bld) 11.0 % Normal 1.7-12.0 [facility] Comment on above: Performed By: #### C BC #### [facility] [address] [place] [address] Dr. Vitaliy Varela NEUT # 3.0 103/ul Normal 1.4-6.5 [facility] Comment on above: Performed By: #### C BC #### [facility] [address] [place] [address] Dr. Vitaliy Varela Neutrophils/100 WBC (Bld) 55.6 % Normal 43.0-75.0 [facility] Comment on above: Performed By: #### C BC #### [facility] [address] [place] [address] Dr. Vitaliy Varela Platelet mean volume (Bld) [Entitic vol] 9.2 fL Critically low 9.5-13.5 [facility] Comment on above: Performed By: #### C BC #### [facility] [address] [place] [address] Dr. Vitaliy Varela PLT 230 103/ul Normal 150-450 [facility] Comment on above: Performed By: #### C BC #### [facility] [address] [place] [address] Dr. Vitaliy Varela RBC 4.70 106/ul Normal 4.20-5.40 [facility] Comment on above: Performed By: #### C BC #### [facility] [address] [place] [address] Dr. Vitaliy Varela WBC 5.4 103/ul Normal 4.0-11.0 [facility] Comment on above: Performed By: #### C BC #### [facility] [address] [place] [address] Dr. Vitaliy Varela FREE T4on 09-21-2021 Free T4 [Mass/Vol] 1.18 ng/dL Normal 0.76-1.46 [facility] Comment on above: Performed By: #### F T4 #### [facility] [address] [place] [address] Dr. Vitaliy Varela LIPID PROFILEon 09-21-2021 CHOL-HDL RATIO NORM SEE BELOW Normal [facility] Comment on above: Result Comment: 3.3 - 4.4 LOW RISK 4.4 - 7.1 AVERAGE RISK 7.1 - 11.0 MODERATE RISK >11.0 HIGH RISK Performed By: #### L IPID, CMP, TSH #### [facility] [address] [place] [address] Dr. Vitaliy Varela Cholesterol [Mass/Vol] 278 mg/dL Critically high <=200 [facility] Comment on above: Performed By: #### L IPID, CMP, TSH #### [facility] [address] [place] [address] Dr. Vitaliy Varela Cholesterol in HDL [Mass/Vol] 44 mg/dL Normal 40-60 [facility] Comment on above: Performed By: #### L IPID, CMP, TSH #### [facility] [address] [place] [address] Dr. Vitaliy Varela Cholesterol in LDL [Mass/Vol] 181.8 mg/dL Normal [facility] Comment on above: Performed By: #### L IPID, CMP, TSH #### [facility] [address] [address] [address] Vitaliy Varela Cholesterol.total/Cho lesterol in HDL [Mass ratio] 6.3 {ratio} Normal [facility] Comment on above: Performed By: #### L IPID, CMP, TSH #### [facility] [address] [address] [address] Vitaliy Varela HDL NORMAL > or = 60 mg/dl - LO W CARDIOVASCULAR RISK <40 mg/dl - HIGH CARDIOVASCULAR RISK Normal [facility] Comment on above: Performed By: #### L IPID, CMP, TSH #### [facility] [address] [address] [address] Vitaliy Varela LDL CALC NORMAL SEE BELOW Normal [facility] Comment on above: Result Comment: <100 mg/dl OPTIMAL 100 - 129 mg/dl NEAR OR ABOVE OPTIMAL 130 - 159 mg/dl BORDERLINE HIGH 160 - 189 mg/dl HIGH >190 mg/dl VERY HIGH Performed By: #### L IPID, CMP, TSH #### [facility] [address] [address] [address] Vitaliy Varela Triglyceride [Mass/Vol] 261 mg/dL Critically high <=150 [facility] Comment on above: Performed By: #### L IPID, CMP, TSH #### [facility] [address] [address] [address] Vitaliy Varela VLDL CALC 52.2 mg/dL Normal [facility] Comment on above: Performed By: #### L IPID, CMP, TSH #### [facility] [address] [address] [address] Vitaliy Varela PROF 14(COMP METB)on 022 Albumin [Mass/Vol] 3.7 g/dL Normal 3.4-5.0 [facility] Comment on above: Performed By: #### L IPID, CMP, TSH #### [facility] [address] [address] [address] Vitaliy Varela Albumin/Globulin [Mass ratio] 0.9 {ratio} Normal [facility] Comment on above: Performed By: #### L IPID, CMP, TSH #### [facility] [address] [address] [address] Vitaliy Varela ALP [Catalytic activity/Vol] 90 U/L Normal 46-116 [facility] Comment on above: Performed By: #### L IPID, CMP, TSH #### [facility] [address] [address] [address] Vitaliy Varela ALT [Catalytic activity/Vol] 35 U/L Normal 14-59 [facility] Comment on above: Performed By: #### L IPID, CMP, TSH #### [facility] [address] [place] [address] Dr. Vitaliy Varela Anion gap [Moles/Vol] 12.6 mmol/L Normal [facility] Comment on above: Performed By: #### L IPID, CMP, TSH #### [facility] [address] [place] [address] Dr. Vitaliy Varela AST [Catalytic activity/Vol] 19 U/L Normal 15-37 [facility] Comment on above: Performed By: #### L IPID, CMP, TSH #### [facility] [address] [place] [address] Dr. Vitaliy Varela Bilirubin [Mass/Vol] 0.4 mg/dL Normal 0.2-1.0 [facility] Comment on above: Performed By: #### L IPID, CMP, TSH #### [facility] [address] [address] [address] Vitaliy Varela Calcium [Mass/Vol] 8.9 mg/dL Normal 8.5-10.1 [facility] Comment on above: Performed By: #### L IPID, CMP, TSH #### [facility] [address] [place] [address] Dr. Vitaliy Varela Chloride [Moles/Vol] 104 mmol/L Normal 98-107 [facility] Comment on above: Performed By: #### L IPID, CMP, TSH #### [facility] [address] [place] [address] Dr. Vitaliy Varela CO2 [Moles/Vol] 26.6 mmol/L Normal 21.0-32.0 [facility] Comment on above: Performed By: #### L IPID, CMP, TSH #### [facility] [address] [address] [address] Vitaliy Varela Creatinine [Mass/Vol] 0.83 mg/dL Normal 0.55-1.02 [facility] Comment on above: Performed By: #### L IPID, CMP, TSH #### [facility] [address] [address] [address] Vitaliy Varela EGFR-AF DUTCH >60 Normal >=60 [facility] Comment on above: Performed By: #### L IPID, CMP, TSH #### [facility] [address] [address] [address] Vitaliy Varela EGFR-NON AF DUTCH >60 Normal >=60 [facility] Comment on above: Performed By: #### L IPID, CMP, TSH #### [facility] [address] [address] [address] Vitaliy Varela Globulin (S) [Mass/Vol] 4.0 g/dL Normal [facility] Comment on above: Performed By: #### L IPID, CMP, TSH #### [facility] [address] [address] [address] Vitaliy Varela Glucose [Mass/Vol] 113 mg/dL Critically high 74-106 [facility] Comment on above: Performed By: #### L IPID, CMP, TSH #### [facility] [address] [address] [address] Vitaliy Varela Potassium [Moles/Vol] 4.2 mmol/L Normal 3.5-5.1 [facility] Comment on above: Performed By: #### L IPID, CMP, TSH #### [facility] [address] [address] [address] Vitaliy Varela Protein [Mass/Vol] 7.7 g/dL Normal 6.4-8.2 [facility] Comment on above: Performed By: #### L IPID, CMP, TSH #### [facility] [address] [address] [address] Vitaliy Varela Sodium [Moles/Vol] 139 mmol/L Normal 136-145 [facility] Comment on above: Performed By: #### L IPID, CMP, TSH #### [facility] [address] [address] [address] Vitaliy Varela Urea nitrogen [Mass/Vol] 19.0 mg/dL Critically high 7.0-18.0 [facility] Comment on above: Performed By: #### L IPID, CMP, TSH #### [facility] [address] [place] [address] Dr. Vitaliy Varela Urea nitrogen/Creatinine [Mass ratio] 22.9 mg/mg Normal [facility] Comment on above: Performed By: #### L IPID, CMP, TSH #### [facility] [address] [place] [address] Dr. Vitaliy Varela TSHon 09-21-2021 TSH 0.108 uIU/mL Critically low 0.358-3.740 [facility] Comment on above: Performed By: #### L IPID, CMP, TSH #### [facility] [address] [place] [address] Dr. Vitaliy Varela TSH RANGE SEE BELOW Normal [facility] Comment on above: Result Comment: <0.3 4 UIU/ml HYPERTHYROID 0.34-5.60 UIU/ml EUTHYROID >5.60 UIU/ml HYPOTHYROID Performed By: #### L IPID, CMP, TSH #### [facility] [address] [place] [address] Dr. Vitaliy Varela Vital Signs Date Time Vital Sign Value Performing Clinician Facility 04-09-2024 10:09-0500 Blood Pressure Location Samuelsayde Berg [facility] 04-09-2024 10:09-0500 Diastolic blood pressure 82 mm[Hg] Samuelsshmuel Berg [facility] 04-09-2024 10:09-0500 Heart rate 67 /min Arvind Berg [facility] 04-09-2024 10:09-0500 Systolic blood pressure 137 mm[Hg] Arvind Berg [facility] 05-05-2023 09:00-0500 Body height 163.83 cm Ranjana Prado Other [facility] Other 05-05-2023 09:00-0500 Body mass index (BMI) [Ratio] 36.5 kg/m2 Rajnana Prado Other [facility] Other 05-05-2023 09:00-0500 Body temperature 97.7 [degF] Ranjana Prado Other [facility] Other 05-05-2023 09:00-0500 Body weight 97.98 kg Ranjana Prado Other [facility] Other 05-05-2023 09:00-0500 Diastolic blood pressure 70 mm[Hg] Ranjana Prado Other [facility] Other 05-05-2023 09:00-0500 SaO2% (BldA) [Mass fraction] 95 % Ranjana Prado Other [facility] Other 05-05-2023 09:00-0500 Systolic blood pressure 122 mm[Hg] Ranjana Prado Other [facility] Other 04-08-2023 10:07-0500 Blood Pressure Location Ashely Worthy [facility] 04-08-2023 10:07-0500 Body temperature 96.8 [degF] Ashely Worthy [facility] 04-08-2023 10:07-0500 Diastolic blood pressure 73 mm[Hg] Ashely Lamasz [facility] 04-08-2023 10:07-0500 Heart rate 64 /min Ashely Lamasz [facility] 04-08-2023 10:07-0500 Systolic blood pressure 115 mm[Hg] Ashely Lamasz [facility] 03-25-2023 13:06-0500 Body height 167.6 cm Debbie Nagy MD Work Phone: [facility] 03-25-2023 13:06-0500 Body mass index (BMI) [Ratio] 35.35 kg/m2 Debbie Nagy MD Work Phone: [facility] 03-25-2023 13:06-0500 Body weight 99.34 kg Debbie Nagy MD Work Phone: [facility] 03-25-2023 13:06-0500 Diastolic blood pressure 74 mm[Hg] Debbie Nagy MD Work Phone: [facility] 03-25-2023 13:06-0500 Heart rate 76 /min Debbie Nagy MD Work Phone: [facility] 03-25-2023 13:06-0500 Systolic blood pressure 128 mm[Hg] Debbie Nagy MD Work Phone: [facility] 03-04-2023 15:30-0400 Body height 163.83 cm Ranjana Prado Other [facility] Other 03-04-2023 15:30-0400 Body mass index (BMI) [Ratio] 36.84 kg/m2 Ranjana Prado Other [facility] Other 03-04-2023 15:30-0400 Body weight 98.88 kg Ranjana Prado Other [facility] Other 03-04-2023 15:30-0400 Diastolic blood pressure 74 mm[Hg] Ranjana Prado Other [facility] Other 03-04-2023 15:30-0400 SaO2% (BldA) [Mass fraction] 93 % Ranjana Prado Other [facility] Other 03-04-2023 15:30-0400 Systolic blood pressure 145 mm[Hg] Ranjana Prado Other [facility] Other 01-19-2023 10:01-0400 Diastolic blood pressure 80 mm[Hg] Ranjana Prado Work Phone: [employer] [employer] [facility] DO Work Phone: 01-19-2023 10:01-0400 Systolic blood pressure 158 mm[Hg] Ranjana Prado Work Phone: [employer] [employer] DO Work Phone: 01-19-2023 09:55-0400 Body height 167.64 cm Ranjana Prado Work Phone: [employer] [facility] 250 DO Work Phone: 01-19-2023 09:55-0400 Body mass index (BMI) [Ratio] 34.54 kg/m2 Ranjana Prado Work Phone: [employer] [employer] [employer] DO Work Phone: 01-19-2023 09:55-0400 Body surface area Derived from formula 2.06 m2 Ranjana Prado Work Phone: [employer] [facility] 250 DO Work Phone: 01-19-2023 09:55-0400 Body weight 97.07 kg Ranjana Prado Work Phone: [facility] [place] 250 DO Work Phone: 01-19-2023 09:55-0400 Diastolic blood pressure 84 mm[Hg] Ranjana Prado Work Phone: [facility] [place] 250 DO Work Phone: 01-19-2023 09:55-0400 Heart rate 58 /min Ranjana Prado Work Phone: [facility] [place] 250 DO Work Phone: 01-19-2023 09:55-0400 Systolic blood pressure 160 mm[Hg] Ranjana Prado Work Phone: [facility] [place] 250 DO Work Phone: 01-17-2023 15:00-0400 Body height 163.83 cm Rnajana Prado Other [employer] Other 01-17-2023 15:00-0400 Body mass index (BMI) [Ratio] 35.96 kg/m2 Ranjana Prado Other [employer] Other 01-17-2023 15:00-0400 Body weight 96.53 kg Ranjana Prado Other [employer] Other 01-17-2023 15:00-0400 Diastolic blood pressure 89 mm[Hg] Ranjana Prado Other [employer] Other 01-17-2023 15:00-0400 Respiratory rate 12 /min Ranjana Prado Other [employer] Other 01-17-2023 15:00-0400 Systolic blood pressure 143 mm[Hg] Ranjana Prado Other [employer] Other 01-07-2023 13:13-0400 Diastolic blood pressure 99 mm[Hg] Ashely Worthy [facility] 01-07-2023 13:13-0400 Mean blood pressure 128 mm[Hg] Ashely Robmetz [facility] 01-07-2023 13:13-0400 Systolic blood pressure 186 mm[Hg] Ashely Robmetz [facility] 01-07-2023 13:05-0400 Blood Pressure Location Ashelypetrona RobDeacon [facility] 01-07-2023 13:05-0400 Body temperature 97.34 [degF] Ashely Robmetz [facility] 01-07-2023 13:05-0400 Diastolic blood pressure 92 mm[Hg] Ashely Robmetz [facility] 01-07-2023 13:05-0400 Heart rate 63 /min Ashely Worthy [facility] 01-07-2023 13:05-0400 Systolic blood pressure 150 mm[Hg] Ashely Robmetz [facility] 01-06-2023 10:00-0400 Body height 163.83 cm Ranjana Prado Other [employer] Other 01-06-2023 10:00-0400 Body mass index (BMI) [Ratio] 36.94 kg/m2 Ranjana Prado Other [employer] Other 01-06-2023 10:00-0400 Body temperature 98 [degF] Ranjana Prado Other [employer] Other 01-06-2023 10:00-0400 Body weight 99.16 kg Ranjana Prado Other [employer] Other 01-06-2023 10:00-0400 Diastolic blood pressure 82 mm[Hg] Ranjana Prado Other [employer] Other 01-06-2023 10:00-0400 SaO2% (BldA) [Mass fraction] 97 % Ranjana Prado Other [employer] Other 01-06-2023 10:00-0400 Systolic blood pressure 184 mm[Hg] Ranjana Prado Other [employer] Other 12-03-2022 13:35-0400 Diastolic blood pressure 74 mm[Hg] Ashely Deacon [facility] 12-03-2022 13:35-0400 Mean blood pressure 105 mm[Hg] Ashely Deacon [facility] 12-03-2022 13:35-0400 Systolic blood pressure 168 mm[Hg] Ashely Deacon [facility] 12-03-2022 13:25-0400 Blood Pressure Location Ashely Deacon [facility] 12-03-2022 13:25-0400 Body temperature 98.06 [degF] Ashely Deacon [facility] 12-03-2022 13:25-0400 Diastolic blood pressure 90 mm[Hg] Ashely Deacon [facility] 12-03-2022 13:25-0400 Heart rate 62 /min Ashely Deacon [facility] 12-03-2022 13:25-0400 Respiratory rate 16 /min Ashely Deacon [facility] 12-03-2022 13:25-0400 SaO2% (BldA) [Mass fraction] 97 % Ashelypetrona RobDeacon [facility] 12-03-2022 13:25-0400 Systolic blood pressure 168 mm[Hg] Ashely Deacon [facility] 09-03-2022 13:33-0400 Diastolic blood pressure 84 mm[Hg] Ashely Deacon [facility] 09-03-2022 13:33-0400 Mean blood pressure 103 mm[Hg] Ashely Deacon [facility] 09-03-2022 13:33-0400 Systolic blood pressure 142 mm[Hg] Ashely Deacon [facility] 09-03-2022 13:28-0400 Blood Pressure Location Ashely Deacon [facility] 09-03-2022 13:28-0400 Body temperature 97.16 [degF] Ashely Deacon [facility] 09-03-2022 13:28-0400 Diastolic blood pressure 83 mm[Hg] Ashely Deacon [facility] 09-03-2022 13:28-0400 Heart rate 67 /min Ashelypetrona RobDeacon [facility] 09-03-2022 13:28-0400 Systolic blood pressure 163 mm[Hg] Ashely Deacon [facility] 07-15-2022 13:08-0500 Diastolic blood pressure 108 mm[Hg] Copeland SALAM [facility] 07-15-2022 13:08-0500 Mean blood pressure 136 mm[Hg] Copeland SALAM [facility] 07-15-2022 13:08-0500 Systolic blood pressure 192 mm[Hg] Copeland SALAM [facility] 07-15-2022 13:06-0500 Blood Pressure Location Copeland SALAM [facility] 07-15-2022 13:06-0500 Diastolic blood pressure 102 mm[Hg] Copeland SALAM [facility] 07-15-2022 13:06-0500 Heart rate 78 /min Copeland SALAM [facility] 07-15-2022 13:06-0500 Respiratory rate 16 /min Copeland SALAM [facility] 07-15-2022 13:06-0500 Systolic blood pressure 174 mm[Hg] Copeland SALAM [facility] 07-05-2022 10:45-0500 Body height 163.83 cm Ranjana Prado Other [employer] Other 07-05-2022 10:45-0500 Body mass index (BMI) [Ratio] 37.18 kg/m2 Ranjana Prado Other [employer] Other 07-05-2022 10:45-0500 Body weight 99.79 kg Ranjana Prado Other [employer] Other 07-05-2022 10:45-0500 Diastolic blood pressure 86 mm[Hg] Ranjana Prado Other [employer] Other 07-05-2022 10:45-0500 SaO2% (BldA) [Mass fraction] 97 % Ranjana Prado Other [employer] Other 07-05-2022 10:45-0500 Systolic blood pressure 152 mm[Hg] Ranjaan Prado Other [employer] Other Encounters Encounter Date Encounter Type Care Provider Facility Start: 05-01-2024 End: 05-01-2024 ambulatory Josie Lucas PT [facility] Comment on above: Vertigo (Primary Dx) Start: 04-24-2024 End: 04-24-2024 Bamboo flowsheet Josie Lucas PT [facility] Start: 04-24-2024 End: 04-24-2024 Bamboo flowsheet Josie Lucas PT [facility] Start: 04-24-2024 End: 04-24-2024 ambulatory Josie Lucas PT [facility] Comment on above: Vertigo (Primary Dx) Start: 04-19-2024 End: 04-19-2024 ambulatory Josie Lucas PT [facility] Comment on above: Vertigo (Primary Dx) Start: 04-19-2024 End: 04-19-2024 Bamboo flowsheet Josie Lucas PT [facility] Start: 04-19-2024 End: 04-19-2024 Bamboo flowsheet Josie Lucas PT [facility] Start: 04-09-2024 End: 04-09-2024 ambulatory Arvind Jacobi Facility:[facility] Start: 04-09-2024 End: 04-09-2024 Patient encounter procedure [facility] Start: 12-20-2023 End: 12-20-2023 Evaluation and management of inpatient ANAYELI Marcela STEWARD [facility] Start: 12-19-2023 End: 12-19-2023 ambulatory RANJANA PRADO [facility] Start: 08-24-2023 End: 08-24-2023 ambulatory SENG PAYAN Not Available Start: 08-22-2023 End: 08-22-2023 ambulatory SENG PAYAN Not Available Start: 08-18-2023 End: 08-18-2023 ambulatory SENG WOODARDALL Not Available Start: 08-16-2023 End: 08-16-2023 ambulatory SENG WHITMORETERSALL Not Available Start: 08-09-2023 End: 08-09-2023 ambulatory SENG WHITMORETERSALL Not Available Start: 08-05-2023 End: 08-05-2023 ambulatory Constantine Hilton Facility:[facility] Start: 08-03-2023 End: 08-03-2023 ambulatory SENG WHITMORETERSALL Not Available Start: 08-01-2023 End: 08-01-2023 ambulatory SENG WHITMORETERSALL Not Available Start: 07-27-2023 End: 07-27-2023 ambulatory SENG WHITMORETERSALL Not Available Start: 07-25-2023 End: 07-25-2023 ambulatory JOSIE LUCAS Not Available Start: 05-11-2023 End: 05-11-2023 ambulatory Ranjana Prado Other [employer] Other Start: 05-11-2023 Telephone encounter Ranjana Prado [facility] Start: 05-05-2023 End: 05-05-2023 ambulatory Ranjana Prado Other [employer] Other Start: 05-05-2023 Office outpatient vi sit 15 minutes Ranjana Prado [facility] Start: 04-08-2023 End: 04-08-2023 Patient encounter procedure Ashely Worthy [facility] Start: 03-25-2023 End: 03-25-2023 ambulatory DEBBIE [facility] Ambulatory Start: 03-25-2023 End: 03-25-2023 Office outpatient visit 25 minutes Debbie Nagy MD Work Phone: [facility] Comment on above: Essential hypertensi on, benign (Primary Dx); Mixed hyperlipidemia; Atypical chest pain; Class 2 obesity with body mass index (BMI) of 35.0 to 35.9 in adult, unspecified obesity type, unspecified whether serious comorbidity present Start: 03-14-2023 End: 03-14-2023 ambulatory Ranjana Prado Other [employer] Other Start: 03-14-2023 Telephone encounter Ranjana Prado [facility] Start: 03-08-2023 End: 03-08-2023 ambulatory Ranjana Prado Other [employer] Other Start: 03-08-2023 Telephone encounter Ranjana Prado [facility] Start: 03-04-2023 End: 03-04-2023 ambulatory Ranjana Prado Other [employer] Other Start: 03-04-2023 Office outpatient vi sit 15 minutes Ranjana Prado [facility] Start: 01-21-2023 SURGNON, Provider: Debbie Nagy, Status: Pen, Time: 2:00 PM Ranjana Prado Work Phone: [facility] 250 DO Work Phone: Start: 01-21-2023 End: 01-21-2023 ambulatory Ranjana Prado Facility:[facility] Start: 01-21-[address] Ranjana Prado Facility:[id number] Start: 01-19-2023 Office consultation new/estab patient 80 min Ranjana Prado Work Phone: [facility] 250 DO Work Phone: Start: 01-19-2023 ambulatory Debbie Nagy Facility : Start: 01-18-[address] Ranjana Prado Facili ty:[facility] Start: 01-17-2023 End: 01-17-2023 ambulatory Ranjana Prado Other [employer] Other Start: 01-17-2023 Office outpatient vi sit 15 minutes Ranjana Prado [facility] Start: 01-11-2023 End: 01-11-2023 ambulatory Ranjana Prado Other [employer] Other Start: 01-11-2023 Telephone encounter Ranjana Prado [facility] Start: 01-07-2023 End: 01-07-2023 Patient encounter procedure Ashely Worthy [facility] Start: 01-06-2023 End: 01-06-2023 ambulatory Ranjana Prado Other [employer] Other Start: 01-06-2023 Office outpatient vi sit 15 minutes Ranjana Prado [facility] Start: 12-03-2022 End: 12-03-2022 Patient encounter procedure Ashely Worthy [facility] Start: 09-03-2022 End: 09-03-2022 Patient encounter procedure Ashely Worthy [facility] Start: 08-17-2022 End: 08-17-2022 Lab Drop off Copeland SALAM [facility] Start: 07-28-2022 End: 07-28-2022 ambulatory Ranjana Prdao Other [employer] Other Start: 07-28-2022 Telephone encounter Ranjana Prado [facility] Start: 07-20-2022 End: 07-20-2022 Lab Drop off Copeland SALAM [facility] Start: 07-15-2022 End: 07-15-2022 Patient encounter procedure Copeland SALAM [facility] Start: 07-15-2022 End: 07-15-2022 Patient encounter procedure Copeland SALAM [facility] Start: 07-13-2022 End: 07-13-2022 ambulatory Ranjana Prado Other [employer] Other Start: 07-13-2022 Telephone encounter Ranjana Prado [facility] Start: 07-12-2022 End: 07-13-[address] RANJANA PRADO Facility: Start: 07-06-2022 End: 07-06-2022 ambulatory Ranjana Prado Other [employer] Other Start: 07-06-2022 Telephone encounter Ranjana Prado [facility] Start: 07-05-2022 Patient encounter procedure Ranjana Prado [facility] Start: 07-05-2022 End: 07-06-[address] RANJANA PRADO Facility: Start: 09-21-2021 End: 09-22-[address] RANJANA PRADO Facility: Procedures Date Procedure Procedure Detail Performing Clinician Start: 12-21-2022 Cystourethroscopy Ivis Schneidermini Start: 08-17-2022 Colonoscopy Debbie romero MD Work Phone: Start: 08-17-2022 Colonoscopy Ashely Liane cohen Start: 04-01-2020 Cataract extraction and insertion of intraocular lens Dinorah MORRIS Cataract surgery Ranjana sanderson Work Phone: Cataract surgery Samuels Sa rmini Hernia repair Ranjana Prado Work Phone: Hernia repair Samuels Sarmi ni Hysterectomy Ranjana Prado Work Phone: Hysterectomy [facility]els Sarmin i Procedure on lymph node Cory Prado Work Phone: Total colonoscopy Ranjana quiroz Work Phone: Comment on above: 2022; Plan of Treatment Date Care Activity Detail Author Start: 08-17-2032 Screening for malign ant neoplasm of colon [facility] Start: 05-08-2024 End: 05-08-2024 ambulatory 05/08/2024 8:30 AM EST Treatment [facility] [address] [facility] [place] [address] Josie Lucas, PT [facility] Start: 05-01-2024 End: 05-01-2024 ambulatory 05/01/2024 10:00 AM EST Treatment [facility] [address] [place] [address] Josie Lucas, PT [facility] Start: 04-24-2024 End: 04-24-2024 ambulatory [facility] Comment on above: Vertigo (Primary Dx) Start: 04-19-2024 End: 04-19-2024 ambulatory 04/19/2024 2:30 PM EST Evaluation [facility] [address] [facility] [address] [place] [address] Josie Lucas, PT Arrived [facility] Comment on above: Arrived Start: 01-08-2024 Influenza vaccination Influenza Vacc ine (#1) [facility] Start: 01-07-2023 Influenza vaccination Influenza Vacc ine (#1) [facility] Start: 09-09-2022 COVID-19 Vaccine (4 - Pfizer series) COVID-19 Vaccine (4 - Pfizer series) [facility] Start: 10-22-2020 Pneumococcal Vaccine : 65+ Years (2 of 2 - PPSV23 or PCV20) Pneumococcal Vaccine: 65+ Years (2 of 2 - PPSV23 or PCV20) [facility] Start: 02-06-2020 Pneumococcal Vaccine : 65+ Years (2 of 2 - PPSV23 or PCV20) Pneumococcal Vaccine: 65+ Years (2 of 2 - PPSV23 or PCV20) [facility] Start: 04-02-2019 Pneumococcal Vaccine : 65+ Years (2 - PPSV23 or PCV20) Pneumococcal Vaccine: 65+ Years (2 - PPSV23 or PCV20) [facility] Start: 2002 Zoster Vaccines (1 o f 2) Zoster Vaccines (1 of 2) [facility] Start: 1992 Screening for malign ant neoplasm of breast Mammogram [facility] Start: 1974 DTaP/Tdap/Td Vaccine s (1 - Tdap) DTaP/Tdap/Td Vaccines (1 - Tdap) [facility] Start: 1970 Diabetes mellitus screening Diabetes Screening [facility] Start: 1970 Hepatitis C screening Hepatitis C Sc reening [facility] Start: 1952 Lipid panel Lipid Panel [facility] Start: 1952 Medicare Annual Wellness Visit Medicare Annual Wellness Visit (AWV) [facility] Start: 1952 Screening for malign ant neoplasm of colon [facility] Start: 1952 Screening for osteoporosis Bone Density Scan [facility] Start: 1952 Thyroid stimulating hormone measurement TSH Level [facility] Immunizations Immunization Date Immunization Notes Care Provider Fa cility 07-15-2022 COVID-19 Pfizer (bivalent) Ranjana Prado Other [facility] 04-17-2021 COVID-19 Vaccine Pfizer - Documentation Purposes Only Ranjana Prado Other [facility] 09-03-2020 COVID-19 Vaccine Pfizer - Documentation Purposes Only Ranjana Prado Other [facility] 08-13-2020 COVID-19 Vaccine Pfizer - Documentation Purposes Only Ranjana Prado Other [facility] 10-23-2019 pneumococcal conjugate vaccine, 13 valent Ranjana Prado Other [employer] Other 02-05-2019 pneumococcal conjugate vaccine, 13 valent Ranjana Prado Other [facility] NEGATED: Highlighted row has not occurred!04-09-2024 influenza virus vaccine, unspecified formulation Arvind Berg [facility] NEGATED: Highlighted row has not occurred!04-06-2023 influenza virus vaccine, unspecified formulation Ashely Worthy [facility] NEGATED: Highlighted row has not occurred!07-15-2022 influenza virus vaccine, unspecified formulation Dinorah MORRIS [facility] Payers Date Payer Category Payer Medicare [id number] 2023 Self-pay 2021 Private Health Insurance [employer] Member Subscriber Plan / Payer (Effective 2021-Present) Name: Yaa Duggan Relation to Subscriber: Self Name: Yaa Duggan Payer ID: Not on file Type: Not on file Address: [place] [id number] 2017 Medicare [id number] 1959 Medicare [id number] 1959 Unknown [id number] 1952 Unknown [id number] 2.16.840.1.859488.3.579.2.5 1952 Unknown [id number] 2.16.840.1.578129.3.579.2.5 1952 Unknown [id number] 2.16.840.1.956833.3.579.2.5 93 1952 Unknown [id number] 2.16.840.1.686934.3.579.2.3 1952 Unknown [id number] 2.16.840.1.808063.3.579.2.3 56 1952 Unknown [id number] 2.16.840.1.654987.3.579.2.3 56 1952 Unknown [id number] 2.16.840.1.662334.3.579.2.1 244 1952 Unknown [id number] 2.16.840.1.336890.3.579.2.1 286 1952 Unknown [id number] 2.16.840.1.981054.3.579.2.1 286 1952 Unknown [id number] 2.16.840.1.640550.3.579.2.7 27 1952 Unknown [id number] 2.16.840.1.196902.3.579.2.1 259 1952 Unknown [id number] 2.16.840.1.300999.3.579.2.1 259 1952 Unknown [id number] 2.16.840.1.589069.3.579.2.1 259 1952 Unknown [id number] 2.16.840.1.788928.3.579.2.1 259 1952 Unknown [id number] 2.16.840.1.795151.3.579.2.1 259 1952 Unknown [id number] 2.16.840.1.579253.3.579.2.1 259 1952 Unknown [id number] 2.16.840.1.710101.3.579.2.1 259 1952 Unknown [id number] 2.16.840.1.944460.3.579.2.1 259 1952 Unknown [id number] 2.16.840.1.719280.3.579.2.1 259 1952 Unknown [id number] 2.16.840.1.063662.3.579.2.1 259 1952 Unknown [id number] 2.16.840.1.225081.3.579.2.1 259 1952 Unknown [id number] 2.16.840.1.059049.3.579.2.1 259 Unknown Unknown [id number] 2.16.840.1.563092.3.579.2.5 31 Unknown [id number] 2.16.840.1.583363.3.579.2.5 31 Social History Date Type Detail Facility Start: 07-15-2022 End: 12-03-2022 Tobacco smoking status Ex-smoker (finding) [facility] Tobacco smoking status Never [facility] Start: 03-25-2023 Sex Assigned At Female F [facility] Start: 03-25-2023 Social alcohol use Social alcohol [facility] 250 DO Work Phone: Comment on above: 3x a week; 25 years; History of tobacco use Current smoker [facility] Work Phone: History of tobacco use Cigarette Smoker [facility] Work Phone: Start: 03-25-2023 Alcohol intake Ex-drinker (finding) [facility] Work Phone: Start: 03-25-2023 Alcohol Comment socially [facility] Work Phone: Start: 1950 Sex Assigned At Not on file [facility] Work Phone: Start: 03-15-2023 End: 03-25-2023 Exposure to SARS-CoV-2 (event) Not sure [facility] Tobacco smoking status NHIS Tobacco smoking consumption unknown [facility] Medical Equipment Procedure Code Equipment Code Equipment Origin al Text Equipment Identifier Dates CATARACT EXTRACT ION W/ INTRAOCULAR LENS Demario Obrien DO 04/01/20 Non Biological Eye L [id number] [facility] Start: 04-01-2020 Functional Status Date Assessment Result Facility 04-09-2024 Functional Status N/A [facility] 04-08-2023 Functional Status N/A [facility] 01-07-2023 Functional Status N/A [facility] 12-03-2022 Functional Status N/A [facility] 09-03-2022 Functional Status N/A [facility] 07-15-2022 Functional Status N/A [facility] Clinical Notes 07-05-2022 to 05-01-2024 Josie Lucas, PT - 05/01/2024 10:00 AM KANWALcaitlinmatthew Lance, PT - 04/24/2024 9:00 AM Ritamatthew Lucas, PT - 04/19/2024 2:30 PM EST Note Date & Type Note Facility 05-01-2024 History of Presen t illness Narrative Images from the original note were not included. Physical Therapy Treatment Visit Patient Name: Yaa Duggan Today's Date: 05/01/2024 Encounter Diagnoses Name Primary? Vertigo Yes Visit number: 3 Timed Code Treatment Minutes: 43 minutes Total Treatment Time: 55 minutes Time In: 1000 Time Out: 1058 History: Pt states she started with slight vertigo sx's about 2 weeks ago. Pt states over the past 2 weeks her sx's have worsened. States she can no longer look up or bend over due to increase sx's. Pt states if she lays on her right side in bed the whole room will spin. Pt state she was given medication and took first pills yesterday. Took another dose again around 11:30. Precautions: [place] in 2006, 2011; universal Subjective: Pt states she went shopping immediately following last session. Pt states she does not feel as bad as she did at first evaluation, but definitely not as good as she felt at 2nd appointment. Pain: 07/16 Objective: PT Evaluation (04/19/2024) CERVICAL CROM: limited left c-spine rotation compared to right Palpation: min tenderness bilateral upper cervical paraspinals Special Test: Modified VBI Testing: negative bilateral Hallpike: Nystagmus and dizziness positive right and left Roll Test: not tested Treatment: Education: HEP education with demonstration, Educated on Eval Findings and POC Manual Therapy: Passive ROM, Joint mobilization, Soft Tissue Mobilization, Myofascial Release, Muscle Energy Technique, Neural Mobilization, Myofascial Cupping, Dry Needling, IASTM, and Scar mobilization as needed. Therapeutic Exercise: Strength, Endurance, Flexibility, ROM, HEP, Neural Mobilization, Power, and Core Stability as needed. Therapeutic Activity: Exercises to improve dynamic activities, functional tasks, functional mobility to return to prior activity level as needed. Neuromuscular re-education: (43 minutes) Balance Training, Muscle Facilitation, Dynamic Stability, Core Stabilization, and Blood Flow Restriction Training (BFRT) as needed. Repositioned for positive Hallpike. Continued to treat with Eply maneuver addressing torsion nystagmus. Modalities: Heat, Ice, Electrical Stimulation, Ultrasound, Cervical Mechanical Traction, Lumbar Mechanical Traction, Iontophoresis, and Fluidotherapy as needed. HP x 6 min following 1st and 2nd repositioning. Assessment: Pt has completed 3 PT sessions for dizziness. Pt continues with torsion nystagmus with left Hallpike; upbeating nystagmus noted with right Hallpike lasting greater than 60 seconds. Bilateral roll testing appears negative. Sx's only slightly improved with repeated Eply Maneuvers; will re-assess in one week, however pt advised to contract referring provider due to continued sx's and overall no change with treatment. Outcome Measure: Dizziness Handicap Inventory (DHI): 46/100 Rehab Diagnosis: dizziness Short Term Goal: To be met in 2 weeks Goal 1: Pt to be instructed in home exercise program. Fpc Goals: To be met in 10 weeks Goal 1: Pt to report independence and compliance with home program. Goal 2: Pt to present with negative BPPV testing. Goal 3: Pt to report decrease dizziness by 90% throughout the day. Goal 4: Pt to score no greater than 20/100 on DHI indicating improved QOL. Pt will benefit from skilled PT for 2x/week from 04/19/2024 to 06/28/2024 to address the above impairments. I hereby deem this POC medically necessary. Please sign below. Date: documented in this encounter [facility] 04-24-2024 History of Presen t illness Narrative Images from the original note were not included. Physical Therapy Treatment Visit Patient Name: Yaa Duggan Today's Date: 04/24/2024 Encounter Diagnoses Name Primary? Vertigo Yes Visit number: 2 Timed Code Treatment Minutes: 39 minutes Total Treatment Time: 51 minutes Time In: 0910 Time Out: 1004 History: Pt states she started with slight vertigo sx's about 2 weeks ago. Pt states over the past 2 weeks her sx's have worsened. States she can no longer look up or bend over due to increase sx's. Pt states if she lays on her right side in bed the whole room will spin. Pt state she was given medication and took first pills yesterday. Took another dose again around 11:30. Precautions: [place] in 2006, 2011; universal Subjective: Pt states she is about 95% improved following first session. Still has some dizziness when bending over. Hasn't taken any dizzy medicine. Pain: 07/16 Objective: PT Evaluation (04/19/2024) CERVICAL CROM: limited left c-spine rotation compared to right Palpation: min tenderness bilateral upper cervical paraspinals Special Test: Modified VBI Testing: negative bilateral Hallpike: Nystagmus and dizziness positive right and left Roll Test: not tested Treatment: Education: HEP education with demonstration, Educated on Eval Findings and POC Manual Therapy: Passive ROM, Joint mobilization, Soft Tissue Mobilization, Myofascial Release, Muscle Energy Technique, Neural Mobilization, Myofascial Cupping, Dry Needling, IASTM, and Scar mobilization as needed. Therapeutic Exercise: Strength, Endurance, Flexibility, ROM, HEP, Neural Mobilization, Power, and Core Stability as needed. Therapeutic Activity: Exercises to improve dynamic activities, functional tasks, functional mobility to return to prior activity level as needed. Neuromuscular re-education: (39 minutes) Balance Training, Muscle Facilitation, Dynamic Stability, Core Stabilization, and Blood Flow Restriction Training (BFRT) as needed. Repositioned for positive Hallpike. Pt instructed in home program this date; written instructions and pictures issued with good pt understanding. Modalities: Heat, Ice, Electrical Stimulation, Ultrasound, Cervical Mechanical Traction, Lumbar Mechanical Traction, Iontophoresis, and Fluidotherapy as needed. HP x 6 min following 1st and 2nd repositioning. Assessment: Pt has completed 2 PT sessions for dizziness. Presents with mild nystagmus left Hallpike. Continued mild nystagmus throughout treatment; however, none noted during [employer]. Reviewed importance of avoiding excessive head movements throughout the day today with good pt understanding. Pt instructed to resume pruitt daroff exercises tomorrow and continue until achieves 3 consecutive days without sx's. Will re-assess one week from today. Outcome Measure: Dizziness Handicap Inventory (DHI): 46/100 Rehab Diagnosis: dizziness Short Term Goal: To be met in 2 weeks Goal 1: Pt to be instructed in home exercise program. Fpc Goals: To be met in 10 weeks Goal 1: Pt to report independence and compliance with home program. Goal 2: Pt to present with negative BPPV testing. Goal 3: Pt to report decrease dizziness by 90% throughout the day. Goal 4: Pt to score no greater than 20/100 on DHI indicating improved QOL. Pt will benefit from skilled PT for 2x/week from 04/19/2024 to 06/28/2024 to address the above impairments. I hereby deem this POC medically necessary. Please sign below. Date: documented in this encounter [facility] 04-19-2024 History of Presen t illness Narrative Images from the original note were not included. Physical Therapy Evaluation Visit Patient Name: Yaa Duggan Today's Date: 04/19/2024 Encounter Diagnoses Name Primary? Vertigo Yes Visit number: 1 Timed Code Treatment Minutes: 56 minutes Total Treatment Time: 56 minutes Time In: 1430 Time Out: 1530 History: Pt states she started with slight vertigo sx's about 2 weeks ago. Pt states over the past 2 weeks her sx's have worsened. States she can no longer look up or bend over due to increase sx's. Pt states if she lays on her right side in bed the whole room will spin. Pt state she was given medication and took first pills yesterday. Took another dose again around 11:30. Precautions: [place] in 2006, 2011; universal Subjective: neck pain Pain: 07/16 Objective: PT Evaluation (04/19/2024) CERVICAL CROM: limited left c-spine rotation compared to right Palpation: min tenderness bilateral upper cervical paraspinals Special Test: Modified VBI Testing: negative bilateral Hallpike: Nystagmus and dizziness positive right and left Roll Test: not tested Treatment: Education: HEP education with demonstration, Educated on Eval Findings and POC Manual Therapy: Passive ROM, Joint mobilization, Soft Tissue Mobilization, Myofascial Release, Muscle Energy Technique, Neural Mobilization, Myofascial Cupping, Dry Needling, IASTM, and Scar mobilization as needed. Therapeutic Exercise: Strength, Endurance, Flexibility, ROM, HEP, Neural Mobilization, Power, and Core Stability as needed. Therapeutic Activity: Exercises to improve dynamic activities, functional tasks, functional mobility to return to prior activity level as needed. Neuromuscular re-education: (14 minutes) Balance Training, Muscle Facilitation, Dynamic Stability, Core Stabilization, and Blood Flow Restriction Training (BFRT) as needed. Repositioned for positive Hallpike. Pt instructed in home program this date; written instructions and pictures issued with good pt understanding. Modalities: Heat, Ice, Electrical Stimulation, Ultrasound, Cervical Mechanical Traction, Lumbar Mechanical Traction, Iontophoresis, and Fluidotherapy as needed. Assessment: Pt is 73 y/o female with complaints of dizziness. Pt with noted nystagmus with complaints of dizziness with right and left Hallpike, left noted to have more torsion. Repositioned for left Hallpike. Will re-assess next week. Outcome Measure: Dizziness Handicap Inventory (DHI): 46/100 Rehab Diagnosis: dizziness Short Term Goal: To be met in 2 weeks Goal 1: Pt to be instructed in home exercise program. Marketing Services Specialist Goals: To be met in 10 weeks Goal 1: Pt to report independence and compliance with home program. Goal 2: Pt to present with negative BPPV testing. Goal 3: Pt to report decrease dizziness by 90% throughout the day. Goal 4: Pt to score no greater than 20/100 on DHI indicating improved QOL. Pt will benefit from skilled PT for 2x/week from 04/19/2024 to 06/28/2024 to address the above impairments. I hereby deem this POC medically necessary. Please sign below. Date: documented in this encounter [facility] 05-05-2023 Evaluation note Encounter Date Diagnosis Assessment Notes Apr, Bronchitis (ICD-10 - J40) Take antibiotic as directed. If develop wheezing, chest tightness, itching, bad cough, blue skin color, seizures, swelling of face, lips, tongue, or throat report to ED. [facility] Other 12-01-2023 Hospital Discharge instructions Patient Education 04/08/2023 10:19:26 High-Fiber Eating Plan High-Fiber Eating Plan Fiber, also called dietary fiber, is a type of carbohydrate. It is found foods such as fruits, vegetables, whole grains, and beans. A high-fiber diet can have many health benefits. Your health care provider may recommend a high-fiber diet to help: Prevent constipation. Fiber can make your bowel movements more regular. Lower your cholesterol. Relieve the following conditions: ?Inflammation of veins in the anus (hemorrhoids). ?Inflammation of specific areas of the digestive tract (uncomplicated diverticulosis). ?A problem of the large intestine, also called the colon, that sometimes causes pain and diarrhea (irritable bowel syndrome, or IBS). Prevent overeating as part of a weight-loss plan. Prevent heart disease, type 2 diabetes, and certain cancers. What are tips for following this plan? Reading food labels Check the nutrition facts label on food products for the amount of dietary fiber. Choose foods thathave 5 grams of fiber or more per serving. The goals for recommended daily fiber intake include: ?Men (age 50 or younger): 34 38 g. ?Men (over age 50): 28 34 g. ?Women (age 50 or younger): 25 28 g. ?Women (over age 50): 22 25 g. Your daily fiber goal is g. Shopping Choose whole fruits and vegetables instead of processed forms, such as apple juice or applesauce. Choose a wide variety of high-fiber foods such as avocados, lentils, oats, and kidney beans. Read the nutrition facts label of the foods you choose. Be aware of foods with added fiber. These foods often have high sugar and sodium amounts per serving. Cooking Use whole-grain flour for baking and cooking. Cook with brown rice instead of white rice. Meal planning Start the day with a breakfast that is high in fiber, such as a cereal that contains 5 g of fiber or more per serving. Eat breads and cereals that are made with whole-grain flour instead of refined flour or white flour. Eat brown rice, bulgur wheat, or millet instead of white rice. Use beans in place of meat in soups, salads, and pasta dishes. Be sure that half of the grains you eat each day are whole grains. General information You can get the recommended daily intake of dietary fiber by: ?Eating a variety of fruits, vegetables, grains, nuts, and beans. ?Taking a fiber supplement if you are not able to take in enough fiber in your diet. It is better to get fiber through food than from a supplement. Gradually increase how much fiber you consume. If you increase your intake of dietary fiber too quickly, you may have bloating, cramping, or gas. Drink plenty of water to help you digest fiber. Choose high-fiber snacks, such as berries, raw vegetables, nuts, and popcorn. What foods should I eat? Fruits Berries. Pears. Apples. Oranges. Avocado. Prunes and raisins. Dried figs. Vegetables Sweet potatoes. Spinach. Kale. Artichokes. Cabbage. Broccoli. Cauliflower. Green peas. Carrots. Squash. Grains Whole-grain breads. Multigrain cereal. Oats and oatmeal. Brown rice. Barley. Bulgur wheat. Millet. Quinoa. Bran muffins. Popcorn. [place] wafer crackers. Meats and other proteins [place] beans, kidney beans, and pritchard beans. Soybeans. Split peas. Lentils. Nuts and seeds. Dairy Fiber-fortified yogurt. Beverages Fiber-fortified soy milk. Fiber-fortified orange juice. Other foods Fiber bars. The items listed above may not be a complete list of recommended foods and beverages. Contact a dietitian for more information. What foods should I avoid? Fruits Fruit juice. Cooked, strained fruit. Vegetables Fried potatoes. Canned vegetables. Well-cooked vegetables. Grains White bread. Pasta made with refined flour. White rice. Meats and other proteins Fatty cuts of meat. Fried chicken or fried fish. Dairy Milk. Yogurt. Cream cheese. Sour cream. Fats and oils [place]. Beverages Soft drinks. Other foods Cakes and pastries. The items listed above may not be a complete list of foods and beverages to avoid. Talk with your dietitian about what choices are best for you. Summary Fiber is a type of carbohydrate. It is found in foods such as fruits, vegetables, whole grains, andbeans. A high-fiber diet has many benefits. It can help to prevent constipation, lower blood cholesterol, aid weight loss, and reduce your risk of heart disease, diabetes, and certain cancers. Increase your intake of fiber gradually. Increasing fiber too quickly may cause cramping, bloating,and gas. Drink plenty of water while you increase the amount of fiber you consume. The best sources of fiber include whole fruits and vegetables, whole grains, nuts, seeds, and beans. This information is not intended to replace advice given to you by your health care provider. Make sure you discuss any questions you have with your health care provider. Document Revised: 08/28/2020 Document Reviewed: 08/28/2020 [employer] Patient Education 2022 [employer]. Follow Up Care 01/07/2023 13:44:26 With:Ashely Worthy CNP Address: When:1 year [facility] 11-17-2023 History of Present illness Narrative* Debbie Nagy MD - 03/25/2023 1:10 PM EST Lali Duggan is a 72 y.o. female Chief Complaint Post-Cath HPI Patient is in the office for follow-up for the problems noted below. She had a cardiac catheterization back in January 21, 2023 which demonstrated normal cardiac catheterization. Reassurances todaywere provided that her symptoms of chest pain are noncardiac in origin. She continues to have sharppain that is scattered intermittent and nonspecific and clearly noncardiac in origin. She has hyperlipidemia on statin therapy managed by PCP and has hypertension on medical therapy under control. She still has moderate obesity. Assessment/recommendations: 1-atypical chest pain with normal cardiac catheterization January 21, 2023. Reassurance was provided. No further cardiac work-up is needed, noncardiac source such as GI etiology need to be pursued next. 2-hypertension that is presently under control on amlodipine and losartan which has been well-tolerated. 3-severe hyperlipidemia on statin therapy managed by PCP. 4-class I obesity, lifestyle modifications to lose weight were encouraged Patient will follow-up with me on as-needed basis. Review of Systems All other systems reviewed and are negative. Visit Vitals BP 128/74 (BP Location: Left arm, Patient Position: Sitting) Pulse 76 Ht 1.676 m (5' 6 ) Wt 99.3 kg (219 lb) BMI 35.35 kg/m Smoking Status Former BSA 2.15 m Objective Physical Exam Constitutional: Appearance: Normal appearance. She is normal weight. HENT: Nose: Nose normal. Neck: Vascular: No carotid bruit. Cardiovascular: Rate and Rhythm: Normal rate. Pulses: Normal pulses. Heart sounds: Normal heart sounds. Pulmonary: Effort: Pulmonary effort is normal. Abdominal: General: Bowel sounds are normal. Palpations: Abdomen is soft. Genitourinary: Rectum: Normal. Musculoskeletal: General: Normal range of motion. Cervical back: Normal range of motion. Right lower leg: No edema. Left lower leg: No edema. Skin: General: Skin is warm and dry. Neurological: General: No focal deficit present. Mental Status: She is alert. Psychiatric: Mood and Affect: Mood normal. Behavior: Behavior normal. Thought Content: Thought content normal. Judgment: Judgment normal. Current Medications Current Outpatient Medications: amLODIPine (Norvasc) 10 mg tablet, Take 1 tablet (10 mg) by mouth once daily., Disp: , Rfl: atorvastatin (Lipitor) 40 mg tablet, Take 1 tablet (40 mg) by mouth once daily at bedtime., Disp: ,Rfl: cholestyramine (Questran) 4 gram packet, DISSOLVE 1 PACKET IN WATER OR JUICE AND TAKE DAILY, Disp: , Rfl: levothyroxine (Synthroid, Levoxyl) 150 mcg tablet, Take 1 tablet (150 mcg) by mouth once daily., Disp: , Rfl: losartan (Cozaar) 50 mg tablet, Take 1 tablet (50 mg) by mouth 2 times a day., Disp: , Rfl: nitroglycerin (Nitrostat) 0.4 mg SL tablet, Place 1 tablet (0.4 mg) under the tongue every 5 minutes if needed for chest pain., Disp: , Rfl: Assessment/Plan 1. Essential hypertension, benign 2. Mixed hyperlipidemia 3. Atypical chest pain 4. Class 2 obesity with body mass index (BMI) of 35.0 to 35.9 in adult, unspecified obesity type, unspecified whether serious comorbidity present [facility]: 1(401) 329-941411-17-2023 Instructions* Patient Instructions* Aleja Trinidad LPN - 03/25/2023 1:10 PM EST Please bring all medicines, vitamins, and herbal supplements with you when you come to the office. Prescriptions will not be filled unless you are compliant with your follow up appointments or have a follow up appointment scheduled as per instruction of your physician. Refills should be requested at the time of your visit. Follow up as needed [facility] Work Phone: [phone]) 853-315210-27-2023 Evaluation note* Encounter Date Diagnosis Assessment Notes Treatment Notes Treatment Clinical Notes Feb, SOB (shortness of breath) (ICD-10 - R06.02) Discussed recent normal cardiac cath. Add steroid to help with dyspnea symptom. Check CXR and EKG to be complete. Assess renal function in near future with lab to address the urinary symptoms. [facility] Other 09-15-2023 History general Narrative - Reported* Type Description Date Medical History Hypothyroidism Medical History Hypertension Medical History Bladder Cancer Medical History Anal Cancer Surgical History Hernia 2015 Surgical History Heart Cath 01/21/2023 Hospitalization History See Surgical Hx [facility] Other 09-11-2023 Evaluation note* Encounter Date Diagnosis Assessment Notes Treatment Notes Treatment Clinical Notes Jan, Essential (primary) hypertension (ICD-10 - I10) Reviewed home bps, Some are normal or even lower. Agreed to either hold metoprolol or take that later in the day as presently she is taking both meds in am. Pt agrees to cardio referral. Encouraged her to go to ER if chest pain or jaw pain occurs again. Jan, Dyspnea, unspecified type (ICD-10 - R06.00) as above [facility] Other 09-01-2023 Hospital Discharge instructions Patient Education 01/07/2023 13:09:09 Diarrhea, Adult Diarrhea, Adult Diarrhea is frequent loose and watery bowel movements. Diarrhea can make you feel weak and cause you to become dehydrated. Dehydration can make you tired and thirsty, cause you to have a dry mouth, and decrease how often you urinate. Diarrhea typically lasts 2 3 days. However, it can last longer if it is a sign of something more serious. It is important to treat your diarrhea as told by your health care provider. Follow these instructions at home: Eating and drinking Follow these recommendations as told by your health care provider: Take an oral rehydration solution (ORS). This is an rdmu-omo-lxtrfck medicine that helps return your body to its normal balance of nutrients and water. It is found at pharmacies and retail stores. Drink plenty of fluids, such as water, ice chips, diluted fruit juice, and low- calorie sports drinks. You can drink milk also, if desired. Avoid drinking fluids that contain a lot of sugar or caffeine, such as energy drinks, sports drinks, and soda. Eat bland, iggz-hf-leeyop foods in small amounts as you are able. These foods include bananas, applesauce, rice, lean meats, toast, and crackers. Avoid alcohol. Avoid spicy or fatty foods. Medicines Take umzd-inb-wqzzyti and prescription medicines only as told by your health care provider. If you were prescribed an antibiotic medicine, take it as told by your health care provider. Do notstop using the antibiotic even if you start to feel better. General instructions Wash your hands often using soap and water. If soap and water are not available, use a hand broadcast operations engineer. Others in the household should wash their hands as well. Hands should be washed: ?After using the toilet or changing a diaper. ?Before preparing, cooking, or serving food. ?While caring for a sick person or while visiting someone in a hospital. Drink enough fluid to keep your urine pale yellow. Rest at home while you recover. Watch your condition for any changes. Take a warm bath to relieve any burning or pain from frequent diarrhea episodes. Keep all follow-up visits as told by your health care provider. This is important. Contact a health care provider if: You have a fever. Your diarrhea gets worse. You have new symptoms. You cannot keep fluids down. You feel light-headed or dizzy. You have a headache. You have muscle cramps. Get help right away if: You have chest pain. You feel extremely weak or you faint. You have bloody or black stools or stools that look like tar. You have severe pain, cramping, or bloating in your abdomen. You have trouble breathing or you are breathing very quickly. Your heart is beating very quickly. Your skin feels cold and clammy. You feel confused. You have signs of dehydration, such as: ?Dark urine, very little urine, or no urine. ?Cracked lips. ?Dry mouth. ?Sunken eyes. ?Sleepiness. ?Weakness. Summary Diarrhea is frequent loose and sometimes watery bowel movements. Diarrhea can make you feel weak and cause you to become dehydrated. Drink enough fluids to keep your urine pale yellow. Make sure that you wash your hands after using the toilet. If soap and water are not available, usehand broadcast operations engineer. Contact a health care provider if your diarrhea gets worse or you have new symptoms. Get help right away if you have signs of dehydration. This information is not intended to replace advice given to you by your health care provider. Make sure you discuss any questions you have with your health care provider. Document Revised: 11/04/2021 Document Reviewed: 11/04/2021 [employer] Patient Education 2022 [employer]. Follow Up Care 12/03/2022 14:02:26 With:Ashely Worthy CNP Address: When:3 months [facility] 08-31-2023 Evaluation note* Encounter Date Diagnosis Assessment Notes Treatment Notes Treatment Clinical Notes Dec, Bronchitis (ICD-10 - J40) Bronchitis: Care Instructions material was printed. Encourage fluids and rest. Symptoms should improve within the next 4-7 days. Use inhaler at least twice for the next 2 days, and then as needed for wheezing. Cough may linger after viral or bacterial infections; sometimes for weeks. Patient should follow up with PCP if symptoms persist or worsen. Patient advised to go to ER immediately if experiencing shortness of breath or difficulty breathing. Patient verbalized understanding and agreement with treatment plan. Dec, Essential (primary) hypertension (ICD-10 - I10) Increase losartan to 2 daily - call w bps on 01/11 for followup. [facility] Other 07-28-2023 Hospital Discharge instructions Patient Education 12/03/2022 13:53:10 Diarrhea, Adult Diarrhea, Adult Diarrhea is frequent loose and watery bowel movements. Diarrhea can make you feel weak and cause you to become dehydrated. Dehydration can make you tired and thirsty, cause you to have a dry mouth, and decrease how often you urinate. Diarrhea typically lasts 2 3 days. However, it can last longer if it is a sign of something more serious. It is important to treat your diarrhea as told by your health care provider. Follow these instructions at home: Eating and drinking Follow these recommendations as told by your health care provider: Take an oral rehydration solution (ORS). This is an enkz-ucl-ciicflu medicine that helps return your body to its normal balance of nutrients and water. It is found at pharmacies and retail stores. Drink plenty of fluids, such as water, ice chips, diluted fruit juice, and low- calorie sports drinks. You can drink milk also, if desired. Avoid drinking fluids that contain a lot of sugar or caffeine, such as energy drinks, sports drinks, and soda. Eat bland, fznj-bw-ekgxad foods in small amounts as you are able. These foods include bananas, applesauce, rice, lean meats, toast, and crackers. Avoid alcohol. Avoid spicy or fatty foods. Medicines Take xlaa-deq-xqtmvtr and prescription medicines only as told by your health care provider. If you were prescribed an antibiotic medicine, take it as told by your health care provider. Do notstop using the antibiotic even if you start to feel better. General instructions Wash your hands often using soap and water. If soap and water are not available, use a hand broadcast operations engineer. Others in the household should wash their hands as well. Hands should be washed: ?After using the toilet or changing a diaper. ?Before preparing, cooking, or serving food. ?While caring for a sick person or while visiting someone in a hospital. Drink enough fluid to keep your urine pale yellow. Rest at home while you recover. Watch your condition for any changes. Take a warm bath to relieve any burning or pain from frequent diarrhea episodes. Keep all follow-up visits as told by your health care provider. This is important. Contact a health care provider if: You have a fever. Your diarrhea gets worse. You have new symptoms. You cannot keep fluids down. You feel light-headed or dizzy. You have a headache. You have muscle cramps. Get help right away if: You have chest pain. You feel extremely weak or you faint. You have bloody or black stools or stools that look like tar. You have severe pain, cramping, or bloating in your abdomen. You have trouble breathing or you are breathing very quickly. Your heart is beating very quickly. Your skin feels cold and clammy. You feel confused. You have signs of dehydration, such as: ?Dark urine, very little urine, or no urine. ?Cracked lips. ?Dry mouth. ?Sunken eyes. ?Sleepiness. ?Weakness. Summary Diarrhea is frequent loose and sometimes watery bowel movements. Diarrhea can make you feel weak and cause you to become dehydrated. Drink enough fluids to keep your urine pale yellow. Make sure that you wash your hands after using the toilet. If soap and water are not available, usehand broadcast operations engineer. Contact a health care provider if your diarrhea gets worse or you have new symptoms. Get help right away if you have signs of dehydration. This information is not intended to replace advice given to you by your health care provider. Make sure you discuss any questions you have with your health care provider. Document Revised: 11/04/2021 Document Reviewed: 11/04/2021 [employer] Patient Education 2022 [employer]. Follow Up Care 09/03/2022 14:00:02 With:Ashely Worthy CNP Address: When:1 month [facility] 04-28-2023 Hospital Discharge instructions Patient Education 09/03/2022 14:00:06 Colon Polyps Colon Polyps Colon polyps are tissue growths inside the colon, which is part of the large intestine. They are one of the types of polyps that can grow in the body. A polyp may be a round bump or a mushroom-shapedgrowth. You could have one polyp or more than one. Most colon polyps are noncancerous (benign). However, some colon polyps can become cancerous over time. Finding and removing the polyps early can help prevent this. What are the causes? The exact cause of colon polyps is not known. What increases the risk? The following factors may make you more likely to develop this condition: Having a family history of colorectal cancer or colon polyps. Being older than 45 years of age. Being younger than 45 years of age and having a significant family history of colorectal cancer or colon polyps or a genetic condition that puts you at higher risk of getting colon polyps. Having inflammatory bowel disease, such as ulcerative colitis or Crohn's disease. Having certain conditions passed from parent to child (hereditary conditions), such as: ?Familial adenomatous polyposis (FAP). ?Belle syndrome. ?Turcot syndrome. ?Peutz Jeghers syndrome. ?MUTYH-associated polyposis (MAP). Being overweight. Certain lifestyle factors. These include smoking cigarettes, drinking too much alcohol, not gettingenough exercise, and eating a diet that is high in fat and red meat and low in fiber. Having had childhood cancer that was treated with radiation of the abdomen. What are the signs or symptoms? Many times, there are no symptoms. If you have symptoms, they may include: Blood coming from the rectum during a bowel movement. Blood in the stool (feces). The blood may be bright red or very dark in color. Pain in the abdomen. A change in bowel habits, such as constipation or diarrhea. How is this diagnosed? This condition is diagnosed with a colonoscopy. This is a procedure in which a lighted, flexible scope is inserted into the opening between the buttocks (anus) and then passed into the colon to examine the area. Polyps are sometimes found when a colonoscopy is done as part of routine cancer screening tests. How is this treated? This condition is treated by removing any polyps that are found. Most polyps can be removed during a colonoscopy. Those polyps will then be tested for cancer. Additional treatment may be needed depending on the results of testing. Follow these instructions at home: Eating and drinking Eat foods that are high in fiber, such as fruits, vegetables, and whole grains. Eat foods that are high in calcium and vitamin D, such as milk, cheese, yogurt, eggs, liver, fish, and broccoli. Limit foods that are high in fat, such as fried foods and desserts. Limit the amount of red meat, precooked or cured meat, or other processed meat that you eat, such as hot dogs, sausages, medley, or meat loaves. Limit sugary drinks. Lifestyle Maintain a healthy weight, or lose weight if recommended by your health care provider. Exercise every day or as told by your health care provider. Do not use any products that contain nicotine or tobacco, such as cigarettes, e- cigarettes, and chewing tobacco. If you need help quitting, ask your health care provider. Do not drink alcohol if: ?Your health care provider tells you not to drink. ?You are , may be , or are planning to become . If you drink alcohol: ?Limit how much you use to: ?0 1 drink a day for women. ?0 2 drinks a day for men. ?Know how much alcohol is in your drink. In the [place] one drink equals one 12 oz bottle of beer (355 mL), one 5 oz glass of wine (148 mL), or one 1 oz glass of hard liquor (44 mL). General instructions Take xckh-thw-wvgtwfg and prescription medicines only as told by your health care provider. Keep all follow-up visits. This is important. This includes having regularly scheduled colonoscopies. Talk to your health care provider about when you need a colonoscopy. Contact a health care provider if: You have new or worsening bleeding during a bowel movement. You have new or increased blood in your stool. You have a change in bowel habits. You lose weight for no known reason. Summary Colon polyps are tissue growths inside the colon, which is part of the large intestine. They are one type of polyp that can grow in the body. Most colon polyps are noncancerous (benign), but some can become cancerous over time. This condition is diagnosed with a colonoscopy. This condition is treated by removing any polyps that are found. Most polyps can be removed during a colonoscopy. This information is not intended to replace advice given to you by your health care provider. Make sure you discuss any questions you have with your health care provider. Document Revised: 08/13/2020 Document Reviewed: 08/13/2020 [employer] Patient Education 2022 [employer]. 09/03/2022 13:29:38 Proctitis Proctitis Proctitis is swelling and soreness (inflammation) of the lining of the rectum. The rectum is at theend of the large intestine, and it leads to the anus. The inflammation causes pain and discomfort. It may be short-term and sudden (acute) or a long-lasting (chronic) problem. What are the causes? This condition may be caused by: STDs (sexually transmitted diseases). Infection. Trauma or injury to the anus or rectum. Ulcerative colitis or Crohn's disease. Radiation therapy that is directed near the rectum. Antibiotic therapy. What are the signs or symptoms? Symptoms of this condition include: Sudden, uncomfortable, and frequent urges to have a bowel movement. Anal pain or rectal pain. Pain or cramping in the abdomen. A sensation that the rectum is full. Rectal bleeding. Pus or mucus discharge from the anus. Diarrhea or frequent soft, loose stools (feces). Constipation. Pain with bowel movements. How is this diagnosed? This condition may be diagnosed based on: A medical history and physical exam. Various tests, such as: ?An STD test. ?Blood tests. ?Stool tests. ?Rectal culture. ?A procedure to evaluate the anal canal (anoscopy). ?Procedures to look at the entire large bowel or part of it (colonoscopy or sigmoidoscopy). How is this treated? Treatment for this condition depends on the cause. The main goals of treatment are to reduce the symptoms of inflammation and to get rid of any infection. Treatment may include: Home remedies and lifestyle changes. These may include: ?Sitz baths. A sitz bath can be used to help relieve symptoms, clean, and promote healing in the genital and anal areas. ?Avoiding food right before bedtime. Medicines, such as: ?Corticosteroid or anti-inflammatory medicines. These include topical ointments, foams, suppositories, or enemas. ?Antibiotic medicines to treat infection or to control harmful bacteria. Antiviral medicines may also be used. ?Medicines to control diarrhea, soften stools, and reduce pain. ?Medicines to suppress the immune system. Nutritional, dietary, or herbal supplements. Avoiding the activity that caused rectal trauma. Heat or laser therapy for persistent bleeding. A dilation procedure to enlarge a narrowed rectum. Surgery to repair the damaged rectal lining. This is rare. If your proctitis was caused by an STD, your health care provider may test you for infection again 3 months after treatment. Follow these instructions at home: Medicines Take gqya-jnq-pokesyv and prescription medicines only as told by your health care provider. If you were prescribed an antibiotic medicine, take it as told by your health care provider. Do notstop using the antibiotic even if you start to feel better. General instructions Take sitz baths as told by your health care provider. A sitz bath is a shallow, warm water bath that is taken while you are sitting down. The water should only come up to your hips and should cover your buttocks. Try to avoid eating right before bedtime. You may need to take actions to prevent or treat constipation, such as: ?Drink enough fluid to keep your urine pale yellow. ?Take wrez-pit-mwrbycj or prescription medicines. ?Eat foods that are high in fiber, such as beans, whole grains, and fresh fruits and vegetables. ?Limit foods that are high in fat and processed sugars, such as fried or sweet foods. Keep all follow-up visits as told by your health care provider. This is important. Contact a health care provider if: Your symptoms do not improve with treatment. Your symptoms get worse. You have a fever. Get help right away if you: Have blood in your stool or blood coming from the rectal area. Summary Proctitis is swelling and soreness (inflammation) of the lining of the rectum. Inflammation from proctitis causes pain and discomfort. This condition may be caused by STDs, infection, trauma, ulcerative colitis, radiation therapy, or antibiotic therapy. Proctitis may be treated with sitz baths, medicines, heat or laser therapy, or dilation. Rarely, this condition may be treated with surgery. This information is not intended to replace advice given to you by your health care provider. Make sure you discuss any questions you have with your health care provider. Document Revised: 11/04/2021 Document Reviewed: 11/04/2021 [employer] Patient Education 2022 [employer]. Follow Up Care 08/30/2022 09:35:31 With:Ashely Worthy CNP Address: When:3 months [facility] 03-22-2023 Evaluation note* Encounter Date Diagnosis Assessment Notes Treatment Notes Treatment Clinical Notes Jul, Elevated fasting glucose (ICD-10 - R73.01) [facility] Other 03-14-2023 Evaluation + Plan note Diagnostic Tests Pending * Pancreatic Elastase, Fecal 07/20/22 * Giardia lamblia, Direct Detection EIA 07/20/22 * O & P Exam, Routine 07/20/22 [facility]03-09-2023 Evaluation + Plan note Future Scheduled Tests Laboratory* Pancreatic Elastase, Fecal 07/15/22 * Fecal WBC Lactoferrin 07/15/22 * Giardia lamblia, Direct Detection EIA 07/15/22 * O & P Exam, Routine 07/15/22 * Clostridium Difficile PCR 07/15/22 * Enteric Panel by PCR 07/15/22 [facility] 03-09-2023 Evaluation + Plan note Diagnostic Tests Pending * t-Transglutaminase IgA 07/15/22 * IgA, Quant. 07/15/22 Future Scheduled Tests Laboratory* Pancreatic Elastase, Fecal 07/15/22 * Fecal WBC Lactoferrin 07/15/22 * Giardia lamblia, Direct Detection EIA 07/15/22 * O & P Exam, Routine 07/15/22 * Clostridium Difficile PCR 07/15/22 * Enteric Panel by PCR 07/15/22 [facility]02-28-2023 Evaluation note* Encounter Date Diagnosis Assessment Notes Treatment Notes Treatment Clinical Notes Jun, Pure hypercholestero lemia (ICD-10 - E78.00) [facility] Other 02-27-2023 Evaluation note* Encounter Date Diagnosis Assessment Notes Treatment Notes Treatment Clinical Notes Jun, Medicare annual wellness visit, subsequent (ICD-10 - Z00.00) Personalized health advice was given to the beneficiary including a written plan for screenings discussed and provided. Advanced care planning reviewed and/or information given as requested. Additional counseling was provided here today in regards to, [ ]. The above visit was performed by [ ], under direct supervision of [ ]. Document reviewed and amended by provider signed below. Jun, Essential (primary) hypertension (ICD-10 - I10) due for labs. continue present med Jun, Balance disorder (ICD-10 - R26.89) Declines Neurology referral. Found normal MRI from 06/2020. States that she would prefer to pursue the GI referral prior to any neurology intervention for her dizziness. Jun, Other specified hypothyroidism (ICD-10 - E03.8) due for labs Jun, Chronic diarrhea (ICD-10 - K52.9) Pt requests Dr. Morris. Jun, Screening mammogram for breast cancer (ICD-10 - Z12.31) Patient is due for her routine yearly screening mammogram. Screening mammogram ordered today. [facility] Other Chief complaint Narrative - Reported* YAA DUGGAN is being seen for a consultation for chest pain, dyspnea and jaw pain. * 72-year-old white female who is been referred to me for evaluation of symptoms of dyspnea on exertion, chest pain and jaw pain. The patient recently has been noticing significant limitation of physical activities of progressive dyspnea, climbing 1 flight of stairs for is very difficult. She has been experiencing neck pain and jaw pain with activities, she has severe uncontrolled hyperlipidemia with LDL cholesterol around 200 mg/dL while she is on 20 mg daily of atorvastatin. Her brother had coronary bypass surgery in his 50s. She has had 25 years tobacco use in the past which she ended several years ago. She has hypertension which has been uncontrolled lately. She is nondiabetic but her last A1c was 5.8 from June 2022. She is prediabetic. She had no palpitations syncope or near syncope no claudications. She has no gastrointestinal symptoms and no urinary symptoms. Her pressure is elevated today as noted. She was started recently by her PCP on metoprolol which led to dropping her blood pressure significantly. Her cardiac and pulmonary examination were normal. EKG revealed normal sinus rhythm with no acute changes. * Assessment/recommendations: * 1 symptoms highly suggestive of crescendo angina. Patient has multiple uncontrolled risk factor forCAD. We discussed the options available for evaluation. I believe at this stage invasive cardiac evaluation is the most safe and cost effective way of identifying her problem. I discussed with the patient and her the procedure with benefits potential risks and other options of evaluation. We agreed to proceed with cardiac catheterization hopefully this week. Meanwhile aspirin will be started and we will double the atorvastatin up to 40 mg daily. * 2 hypertension that is presently uncontrolled. We will add amlodipine 5 mg daily, discontinue metoprolol and increase losartan up to 50 mg twice daily. * 3 severe hyperlipidemia uncontrolled on 20 mg daily of atorvastatin. We will double the dose and follow lipid profile along with lifestyle changes. * 4 class I obesity, will address issue of increasing activities once we resolve the issue of her progressive dyspnea and chest pain. [facility] [address] DO Work Phone: Evaluation + Plan note Future Appointments Appointment Date:12/03/2022 01:20:00 PM Scheduled Provider:Ashely Worthy CNP Location:[facility] Appointment Type:[facility]ICAL [facility]ESS [facility]ITAL Follow Up [facility] Evaluation + Plan note Future Appointments Appointment Date:12/03/2022 01:20:00 PM Scheduled Provider:Ashely Worthy CNP Location:[facility] Appointment Type:CRITICAL ACCESS HOSPITAL Follow Up Diagnostic Tests Pending * Celiac Disease Comprehensive 09[facility]03/22 [facility] Future Appointments Appointment Date:04/08/2023 10:00:00 AM Scheduled Provider:Ashely Worthy CNP Location:[facility] Appointment Type:[facility]ICAL [facility]ESS [facility]PITAL Follow Up [facility] Evaluation + Plan note Future Appointments Appointment Date:04/09/2024 10:00:00 AM Scheduled Provider:Ashely Worthy CNP Location:[facility] Appointment Type:[facility]ICAL [facility]PITAL Follow Up [facility] Evaluation + Plan note Future Appointments Appointment Date:01/07/2023 01:00:00 PM Scheduled Provider:Ashely Worthy CNP Location:[facility] Appointment Type:[facility] Follow Up [facility] Evaluation noteNo [employer] [employer] Other Evaluation note* Diagnosis Essential hypertension, benign- Primary Mixed hyperlipidemia Atypical chest pain Other chest pain Class 2 obesity with body mass index (BMI) of 35.0 to 35.9 in adult, unspecified obesity type, unspecified whether serious comorbidity present documented in this encounter [facility] Work Phone: Evaluation note* Diagnosis Vertigo- Primary Dizziness and giddiness documented in this encounter [facility] Narrative - Reported* Type Description Date Medical History Hypothyroidism Medical History Hypertension Medical History Bladder Cancer Medical History Anal Cancer Surgical History Hernia 2014 [facility] Other History general Narrative - Reported* Type Description Date Medical History Hypothyroidism Medical History Hypertension Medical History Bladder Cancer Medical History Anal Cancer Surgical History Hernia 2014 Hospitalization History See Surgical Hx [facility] Other Hospital course Narrative No data available for this section [facility] Hospital Discharge instructions No data available for this section [facility] Progress note No data available for this section [facility] Reason for visit Narrative* Rehabilitation - Outpatient (Routine) - Authorized Specialty Diagnoses / Procedures Referred By Brigid washington Referred To Contact Physical Therapy Diagnoses Vertigo Procedures VT PHYSICAL THERAPY EVALUATION LOW COMPLEX 20 MINS [place] OFFICE/OUTPATIENT NEW HIGH MDM EVALUATION Ranjana Prado MD [address] [place] [phone] Phone: tel: fax: Josie Lucas, JACLYN Referral ID Status Reason Start Date Expiration Date V isits Requested Visits Authorized [id number] Authorized 04/19/2024 10/16/2024 15 15 [facility] N[facility]* Rehabilitation - Outpatient (Routine) - Authorized Specialty Diagnoses / Procedures Referred By Brigid washington Referred To Contact Physical Therapy Diagnoses Vertigo Procedures VT PHYSICAL THERAPY EVALUATION LOW COMPLEX 20 MINS [place] OFFICE/OUTPATIENT NEW H[place] [address] [place] [phone] Phone: tel: fax: Josie Lucas, JACLYN Referral ID Status Reason Start Date Expiration Date V isits Requested Visits Authorized [id number] Authorized 04/19/2024 05/08/2024 15 15 [facility] Summary Purpose Family History No Family History Records FoundUnknown Family Member Name Dates Details Lupus: Mother Status:Active No pertinent family history: Father(V49.89, Z78.9) Status:Active Family history of asthma: Br other(V17.5, Z82.5) Status:Active Family history of CABG: Brot her(V17.49, Z82.49) Status:Active Family history of coronary a rtery disease: Brother(V17.3, Z82.49) Status:Active Carotid stenosis, non-sympto matic: Mother Status:Active Carotid artery plaque: Mothe r Status:Active Advance Directives No Advanced Directives Records FoundNo Advanced Directives Records FoundNo Advanced Directives Records FoundNo Advanced Directives Records FoundNo Advanced Directives Records FoundNo Advanced Directives Records FoundNo Advanced Directives Records FoundNo Advanced Directives Records Found Reason for Referral Reason Labile BPs, dyspnea, chest pressure, jaw pain, leaving for vacation on 01/29. Today and last OV w labs Diagnosis 1 Essential (primary) hypertension (I10) Referral Organization [facility] [employer] [facility] brittani Referring Provider First Name Ranjana Referring Provider Last Name Eve Referring Provider Specialty [facility] [employer] Referred Organization [facility] enter Referred Address [address],[address] Referred Provider Specialty Cardiology Referral Priority Routine Reason 07/15/22 Chronic d iarrhea Diagnosis 1 Chronic diarrhea (K5 2.9) Referral Organization Counts include 234 beds at the [facility] brittani Referring Provider First Name Ranjana Referring Provider Last Name Eve Referring Provider Specialty [facility] cine Referred Organization [facility] Referred Provider Dinorah Morris Referred Address [address] [place], [place],[address] Referred Provider Specialty Gastroentero logy Referral Priority Routine Referral Appointment Date 2022-07-15 General Notes Nata Bourgeois 10:22:41 AM >received today, attachments made, referral form attached, referral faxed Nata Bourgeois 07/13/2022 11:42:06 AM >faxed first attempt letter Nata Bourgeois 07/15/2022 08:49:57 AM >received fax with appt info Nata Bourgeois 07/19/2022 04:06:21 PM >FAXED FIRST REQUEST FOR CONSULT NOTES Nata Bourgeois 07/22/2022 09:46:43 AM >RECEIVED NOTES AND SENT TO DR. PRADO FOR REVIEW. CLOSING REFERRAL Additional Source Comments INFORMATION SOURCE (unrecogn ized section and content) DATE CREATED AUTHOR 07/14/2022 [facility] DATE CREATED AUTHOR AUTHOR'S ORGANIZ ATION 01/21/2023 [employer] DATE CREATED AUTHOR AUTHOR'S ORGANIZ ATION 01/25/2023 [facility] DATE CREATED AUTHOR AUTHOR'S ORGANIZ ATION 03/28/2023 [facility] DATE CREATED AUTHOR AUTHOR'S ORGANIZ ATION 08/10/2023 [facility] DATE CREATED AUTHOR AUTHOR'S ORGANIZ ATION 12/20/2023 [facility] DATE CREATED AUTHOR AUTHOR'S ORGANIZ ATION 04/10/2024 [facility] DATE CREATED AUTHOR AUTHOR'S ORGANIZ ATION 05/03/2024 [facility] EPIC Patient Care team informatio n (unrecognized section and content) Vocational Adviser Relationship Specialty Start Date End Date Ranjana Prado MD [address] [place] [address] [place] [address] PCP - General 01/19/23 REASON FOR VISIT (unrecogniz ed section and content) Reason Comments Post-Cath FOR RECORDS PERTAINING TO PATIENTS WHO ARE OR HAVE BEEN ENROLLED IN A CHEMICAL DEPENDENCY/SUBSTANCEABUSE PROGRAM, SOME INFORMATION MAY BE OMITTED. This clinical summary was aggregated from multiple sources. Caution should be exercised in using it in the provision of clinical care. This summary normalizes information from multiple sources, and as a consequence, information in this document may materially change the coding, format and clinical context of patient data. In addition, data may be omitted in some cases. CLINICAL DECISIONS SHOULD BE BASED ON THE PRIMARY CLINICAL RECORDS. [facility]. provides no warranty or guarantee of the accuracy or completeness of information in this document.
[2024-05-07 09:42] LABS: Creatinine Urine Random 206.14 mg/dL (20.00-300.00); Microalbum Creatinine Ratio Ur 11.1 mg/g (0.0-29.9); Microalbumin Urine Random 2.3 mg/dL (<=30.0)
[2024-05-07 09:46] LABS: Estimated Average Glucose 117 mg/dL; Glycohemoglobin A1C 5.7 % (4.5-6.2)
[2024-05-07 09:52] LABS: Basophils Percent Auto 0.1 % (0.2-2.0); Eosinophils Absolute Auto 0.1 10^3/uL (0.0-0.7); Eosinophils Percent Auto 1.4 % (0.9-7.0); Hematocrit 38.9 % (36.0-48.0); Hemoglobin 12.5 g/dL (12.0-16.0); Immature Granulocytes Abs Auto 0.01 10^3/uL (0.00-0.03); Immature Granulocytes Pct Auto 0.1 % (0.0-0.5); Lymphocytes Absolute Auto 2.6 10^3/uL (1.2-3.8); Lymphocytes Percent Auto 37.5 % (20.5-60.0); Mean Corpuscular HGB Conc 32.1 g/dL (29.9-35.2); Mean Corpuscular Hemoglobin 28.3 pg (26.7-34.0); Mean Platelet Volume 10.2 fL (9.5-13.5); Monocytes Absolute Auto 0.6 10^3/uL (0.3-0.8); Monocytes Percent Auto 8.9 % (1.7-12.0); Neutrophils Absolute Auto 3.6 10^3/uL (1.4-6.5); Platelet Count 243 10^3/uL (150-450); Red Blood Count 4.42 10^6/uL (4.20-5.40); Red Cell Distribution Width 14.8 % (11.0-15.0)
[2024-05-07 10:01] LABS: Alanine Aminotransferase 63 U/L (14-59); Albumin Globulin Ratio 0.5; Albumin Level 3.1 g/dL (3.4-5.0); Alkaline Phosphatase 160 U/L (46-116); Anion Gap 12.1; Aspartate Amino Transferase 74 U/L (15-37); BUN Creatinine Ratio 12.7; Bilirubin Total 0.7 mg/dL (0.2-1.0); Calcium 8.1 mg/dL (8.5-10.1); Carbon Dioxide 25.5 mmol/L (21.0-32.0); Chloride 106 mmol/L (98-107); Chol HDL Ratio 4.4; Cholesterol 150 mg/dL (<=200); Estimated GFR (African America >60 (>=60 mL/min/1.73m^2); Estimated GFR (Non-African Ame 53 (>=60 mL/min/1.73m^2); Globulin 6.1 g/dL; Glucose 115 mg/dL (74-106); HDL Cholesterol 34 mg/dL (40-60); Potassium 3.6 mmol/L (3.5-5.1); Sodium 140 mmol/L (136-145); Thyroid Stimulating Hormone 0.953 uIU/mL (0.358-3.740); Total Protein 9.2 g/dL (6.4-8.2); Triglycerides 152 mg/dL (<=150); VLDL CHOLESTEROL 30.4 mg/dL
[2024-05-07 10:29] LABS: Free T4 1.53 ng/dL (0.76-1.46)
== END 2024-05-07 09:14 | disposition home or self-care (01) ==
LOC: LAB 09:15
PROVIDERS: PCP Family Medicine; Visit Provider Family Medicine
DX: E78.00 Pure hypercholesterolemia, unspecified (principal); H81.12 Benign paroxysmal vertigo, left ear; M54.2 Cervicalgia; E03.9 Hypothyroidism, unspecified; I10 Essential (primary) hypertension; R63.1 Polydipsia
CPT/HCPCS: 36415; 80053; 80061; 82043; 82570; 83036; 84439; 84443; 85025

== ENCOUNTER 2024-11-19 11:51 | Outpatient (OUT) | payer MEDICARE, OTHER, SELFPAY ==
[2024-11-19 12:39] LABS: Hematocrit 33.6 % (36.0-48.0); Hemoglobin 10.6 g/dL (12.0-16.0); Immature Granulocytes Abs Auto 0.02 10^3/uL (0.00-0.03); Immature Granulocytes Pct Auto 0.3 % (0.0-0.5); Lymphocytes Absolute Auto 1.9 10^3/uL (1.2-3.8); Mean Corpuscular HGB Conc 31.5 g/dL (29.9-35.2); Mean Corpuscular Hemoglobin 26.0 pg (26.7-34.0); Mean Corpuscular Volume 82.4 fL (81.0-99.0); Platelet Count 272 10^3/uL (150-450); Red Blood Count 4.08 10^6/uL (4.20-5.40); White Blood Count 6.3 10^3/uL (4.0-11.0)
[2024-11-19 12:43] LABS: Microalbum Creatinine Ratio Ur 8.8 mg/g (0.0-29.9)
[2024-11-19 13:15] LABS: Alanine Aminotransferase 50 U/L (14-59); Albumin Globulin Ratio 0.4; Albumin Level 3.0 g/dL (3.4-5.0); Alkaline Phosphatase 198 U/L (46-116); Anion Gap 13.6; Aspartate Amino Transferase 107 U/L (15-37); Blood Urea Nitrogen 22.0 mg/dL (7.0-18.0); Calcium 8.1 mg/dL (8.5-10.1); Carbon Dioxide 24.6 mmol/L (21.0-32.0); Chloride 104 mmol/L (98-107); Estimated GFR (African America 46 (>=60 mL/min/1.73m^2); Estimated GFR (Non-African Ame 38 (>=60 mL/min/1.73m^2); Globulin 7.3 g/dL; Glucose 116 mg/dL (74-106); Potassium 4.2 mmol/L (3.5-5.1); Sodium 138 mmol/L (136-145); Thyroid Stimulating Hormone 4.811 uIU/mL (0.358-3.740); Total Protein 10.3 g/dL (6.4-8.2)
[2024-11-19 15:29] LABS: Folate 4.10 ng/mL (8.60-58.90)
[2024-11-20 04:08] LABS: Vitamin B12 378 pg/mL (232-1245)
== END 2024-11-19 11:52 | disposition home or self-care (01) ==
LOC: LAB 11:53
PROVIDERS: PCP Family Medicine; Visit Provider Family Medicine
DX: Z00.00 Encounter for general adult medical examination without abnormal findings (principal); E78.00 Pure hypercholesterolemia, unspecified; E03.9 Hypothyroidism, unspecified; I10 Essential (primary) hypertension
CPT/HCPCS: 36415; 80053; 82043; 82570; 82607; 82746; 84439; 84443; 85025

== ENCOUNTER 2024-11-22 10:35 | Outpatient (OUT) | payer MEDICARE, OTHER, SELFPAY ==
--- OUTSIDE RECORDS SUMMARY | 2024-11-22 10:37 | XMS_ITS | Encounter Summary ---
Author Organization [facility] Address [address] [place] [address] Phone Care Team Providers Care Sourcing Engineer Name Role Phone Ranjana Bull MD Primary Care Provider [phone] Encounter Details Date Type Department Care Team (Late st Contact Info) Description 01/21/2023 Scanned Document [facility] [address] [place] [phone] Scanning, Generic Provider Social History Tobacco Use Types Packs/Day Years Used Date Smoking Tobacco: Never Assessed Comments Unknown Sex and Gender Information Value Date Recorded Sex Assigned at Not on file Legal Sex Female 9:42 AM EDT Gender Identity Not on file Sexual Orientation Not on file documented as of this encounter Plan of Treatment Not on file documented as of this encounter Procedures Procedure Name Priority Date/Time Associated Diagnosis Comments ADULT CATH 01/21/2023 documented in this encounter Results * ADULT CATH (01/21/2023) Narrative 01/21/2023 Ordered by an unspecified provider. us Onbase Conversion CV CARDIAC CATH PROCEDURES Fin al Result documented in this encounter Visit Diagnoses Not on filedocumented in this encounter Care Teams Sourcing Engineer Relationship Specialty Start Date End Date Ranjana Bull MD [address] [place] [address] [address] [place] [address] PCP - General 01/19/23 documented as of this encounter
--- OUTSIDE RECORDS SUMMARY | 2024-11-22 10:37 | XMS_ITS | Encounter Summary ---
Author Organization [facility] Address [address] [place] [address] Phone Care Team Providers Care Stitch Bonder Machine Operator Helper Name Role Phone Ranjana Bull MD Primary Care Provider [phone] Encounter Details Date Type Department Care Team (Late st Contact Info) Description 02/07/2023 Scanned Document [facility] [address] [place] [phone] Scanning, Generic Provider Social History Tobacco Use Types Packs/Day Years Used Date Smoking Tobacco: Never Assessed Comments Unknown Sex and Gender Information Value Date Recorded Sex Assigned at Not on file Legal Sex Female 9:42 AM EDT Gender Identity Not on file Sexual Orientation Not on file documented as of this encounter Plan of Treatment Not on file documented as of this encounter Visit Diagnoses Not on filedocumented in this encounter Care Teams Stitch Bonder Machine Operator Helper Relationship Specialty Start Date End Date Ranjana Bull MD [address] [place], [place] [id number] PCP - General 01/19/23 documented as of this encounter
--- OUTSIDE RECORDS SUMMARY | 2024-11-22 10:37 | XMS_ITS | Encounter Summary ---
Author Organization [facility] Address [address] [place] [address] Phone Care Team Providers Care Chip Applying Machine Tender Name Role Phone Ranjana Bull MD Primary Care Provider [phone] Encounter Details Date Type Department Care Team (Late st Contact Info) Description 01/18/2023 Scanned Document [facility] [address] [place] [address] Conversion, Onbase Social History Tobacco Use Types Packs/Day Years Used Date Smoking Tobacco: Never Assessed Comments Unknown Sex and Gender Information Value Date Recorded Sex Assigned at Not on file Legal Sex Female 9:42 AM EDT Gender Identity Not on file Sexual Orientation Not on file documented as of this encounter Functional Status * Little interest or pleasure in doing things Answer Date of Assessment Author Not at all 01/19/2023 9:55 AM EDT Conversio n, [employer] Touch[employer] Vitals documented as of this encounter Plan of Treatment Not on file documented as of this encounter Visit Diagnoses Not on filedocumented in this encounter Care Teams Chip Applying Machine Tender Relationship Specialty Start Date End Date Ranjana Bull MD [address] [place] [address] PCP - General 01/19/23 documented as of this encounter
--- OUTSIDE RECORDS SUMMARY | 2024-11-22 10:37 | XMS_ITS | Encounter Summary ---
Author Organization [employer] [facility] [employer] Address [id number] [address] [place] [address] Care Team Providers Care Front Worker Name Role Phone Ranjana Bull MD Primary Care Provider [phone] Encounter Details Date Type Department Care Team (Late st Contact Info) Description 12/20/2023 [facility] [address] [place] [phone] Jose Grissom MD [address] [place] [address] Social History Tobacco Use Types Packs/Day Years Used Date Smoking Tobacco: Former Cigarettes 0.3 15 1 984 - 1999 Smokeless Tobacco: Never Alcohol Use Standard Drinks/Week Comments Yes 0 (1 standard drink = 0.6 oz pure alcohol) wine/beer & liquor daily, 2 per day Childcare Answer Date Recorded Childcare Unknown 10/18/2018 Employment Answer Date Recorded Employment Unknown 10/18/2018 Comments No Sex and Gender Information Value Date Recorded Sex Assigned at Not on file Legal Sex Female 11:50 AM EDT Gender Identity Not on file Sexual Orientation Not on file documented as of this encounter Miscellaneous Notes * Telephone Encounter - Jose Grissom MD - 12/20/2023 10:06 AM EDT Images from the original note were not included. Please schedule for cysto, local, [place] Schedule in 1 year Diagnosis bladder cancer surveillance * Telephone Encounter - Bailee Cummings - 12/20/2023 10:06 AM EDT Spoke with pt and got her scheduled on 12/25/24 at 10:30am and arrival at 9:30am Mailed out letter with date and time documented in this encounter Plan of Treatment Upcoming Encounters Date Type Department Care Team (Latest Contact Info) Description 12/24/2024 3:50 PM EDT Support Visit [facility] - Pre Admit [address] [place] [address] 12/25/2024 10:30 AM EDT Hospital Encounter [facility] - Surgery [address] [place] [address] Jose Grissom MD [address] [place] [address] 12/25/2024 10:30 AM EDT - 12/25/2024 11:00 AM EDT Surgery [facility] - Surgery [address] [place] [address] Jose Grissom MD [address] [place] [address] CYSTOSCOPY [58772 (CPT )] Scheduled Procedures Name Priority Associated Diagnoses Date/Ti me CYSTOSCOPY Encounter for follow-up surveillance of bladder cancer 12/25/2024 10:30 AM EDT documented as of this encounter Visit Diagnoses Not on filedocumented in this encounter Care Teams Front Worker Relationship Specialty Start Date End Date Ranjana Bull MD [address] [place] [address] PCP - General Family Medicine 12/26/20 documented as of this encounter
--- OUTSIDE RECORDS SUMMARY | 2024-11-22 10:37 | XMS_ITS | Encounter Summary ---
Author Organization [facility] [employer] [facility] Address [id number] [address] [place] [address] Care Team Providers Care Keypunch Operators Supervisor Name Role Phone Ranjana Bull MD Primary Care Provider [phone] Encounter Details Date Type Department Care Team (Late st Contact Info) Description 02/20/2021 [facility] [address] [place] [phone] Valarie Boswell RMA Social History Tobacco Use Types Packs/Day Years Used Date Smoking Tobacco: Former Cigarettes Q uit: 1998 Smokeless Tobacco: Never Alcohol Use Standard Drinks/Week Comments Yes 0 (1 standard drink = 0.6 oz pur e alcohol) wine/beer & liquor Childcare Answer Date Recorded Childcare Unknown 10/18/2018 Employment Answer Date Recorded Employment Unknown 10/18/2018 Comments Unknown Sex and Gender Information Value Date Recorded Sex Assigned at Not on file Legal Sex Female 11:50 AM EDT Gender Identity Not on file Sexual Orientation Not on file COVID-19 Exposure Response Date Recorded In the last month, have you been in contact with someone who was confirmed or suspected to have Coronavirus / COVID-19? No / Unsure 02/20/2021 7:58 AM EDT documented as of this encounter Miscellaneous Notes * Telephone Encounter - TORI Huynh - 02/20/2021 2:35 PM EDT I called [facility] & left a message about the referral to Urology. I told her that they will try to call but it would be best if she reached out to them first to schedule an appointment. documented in this encounter Plan of Treatment Upcoming Encounters Date Type Department Care Team (Latest Contact Info) Description 12/24/2024 3:50 PM EDT Support Visit [facility] - Pre Admit [address] [facility] [address] 12/25/2024 10:30 AM EDT Hospital Encounter [facility] - Surgery [address] [place] [address] Jose Grissom MD [address] [place] [address] 12/25/2024 10:30 AM EDT - 12/25/2024 11:00 AM EDT Surgery [facility] Surgery [address] [place] [phone] Jose Grissom MD [address] [place] [place] [address] CYSTOSCOPY [28061 (CPT )] Scheduled Procedures Name Priority Associated Diagnoses Date/Ti me CYSTOSCOPY Encounter for follow-up surveillance of bladder cancer 12/25/2024 10:30 AM EDT documented as of this encounter Visit Diagnoses Not on filedocumented in this encounter Care Teams Keypunch Operators Supervisor Relationship Specialty Start Date End Date Ranjana Bull MD [address] [place] [address] PCP - General Family Medicine 12/26/20 documented as of this encounter
--- OUTSIDE RECORDS SUMMARY | 2024-11-22 10:37 | XMS_ITS | Encounter Summary ---
Author Organization [facility] Address [address] [place] [address] Phone Care Team Providers Care Gaming Dealer Name Role Phone Ranjana Bull MD Primary Care Provider [phone] Encounter Details Date Type Department Care Team ([facility] st Contact Info) Description 01/19/2023 Scanned Document [facility] [address] [place] [address] Conversion, Onbase Social History Tobacco Use Types [...] Procedure Name Priority Date/Time Associated Diagnosis Comments ELECTROCARDIOGRAM RHYTHM STRIP 01/19/2023 documented in this encounter Results * ELECTROCARDIOGRAM RHYTHM STRIP (01/19/2023) Narrative 01/19/2023 Ordered by an unspecified provider. us Onbase Conversion ECG ORDERABLES Final Result documented in this encounter Visit Diagnoses Not on filedocumented in this encounter Care Teams Gaming Dealer Relationship Specialty Start Date End Date Ranjana Bull MD [address] [place] [address] [place] [address] PCP - General 01/19/23 documented as of this encounter
--- OUTSIDE RECORDS SUMMARY | 2024-11-22 10:37 | XMS_ITS | Clinical Summary ---
Author Organization [facility] Address [address] [place] [address] Care Team Providers Care Fabricator Artificial Breast Name Role Phone Unavailable Primary Care Provider Unavailabl e Social History Tobacco Use Types Packs/Day Years Used Date Smoking Tobacco: Never Assessed Comments Unknown Sex and Gender Information Value Date Recorded Sex Assigned at Not on file Legal Sex Female 8:31 PM EDT Gender Identity Not on file Sexual Orientation Not on file Last Filed Vital Signs Vital Sign Reading Time Taken Comments Blood Pressure 145/70 12/05/2017 12:00 PM EDT Pulse - - Temperature - - Respiratory Rate - - Oxygen Saturation - - Inhaled Oxygen Concentration - - Weight 96.2 kg (212 lb) 12/05/2017 12:00 PM EDT Height 167.6 cm (5' 6 ) 12/05/2017 12:00 PM EDT Body Mass Index 34.22 12/05/2017 12:00 PM EDT Plan of Treatment Health Maintenance Due Date Last Done Comments CT Colonography 1952 Colonoscopy 1952 Colorectal Cancer Screening 1950 FIT-DNA 1950 FIT 1950 FOBT 1950 Sigmoidoscopy 1950 Mammogram 1992 Pneumococcal Vaccine: 65+ Years (2 of 2 - PPSV23) 01/0902/05/2019 Influenza Vaccine (#1) 2025 Insurance MEDICARE [employer]
--- OUTSIDE RECORDS SUMMARY | 2024-11-22 10:37 | XMS_ITS | Clinical Summary ---
Author Organization [facility] Address [address] [place] [address] Phone Care Team Providers Care Principal Clerk Typist Name Role Phone Ranjana Bull MD Primary Care Provider [phone] Allergies Active Allergy Reactions Criticality Noted Date Comments Codeine Rash Low 03/25/2023 Phenazopyridine Nausea/vomiting 03/25/2023 Medications atorvastatin (Lipitor) 40 mg tablet Take 1 tablet (40 mg) by mouth once daily at bedtime. 01/19/2023 Active cholestyramine (Questran) 4 gram packet DISSOLVE 1 PACKET IN WATER OR JUICE AND TAKE DAILY 12/06/2022 Active levothyroxine (Synthroid, Levoxyl) 150 mcg tablet Take 1 tablet (150 mcg) by mouth once daily. 02/07/2023 Active losartan (Cozaar) 50 mg tablet Take 1 tablet (50 mg) by mouth 2 times a day. 03/24/2023 Active nitroglycerin (Nitrostat) 0.[address] 1 tablet (0.4 mg) under the tongue every 5 minutes if needed for chest pain. 01/19/2023 Active amLODIPine (Norvasc) 10 mg tablet Take 1 tablet (10 mg) by mouth once daily. Active Active Problems Problem Noted Date Diagnosed Date Essential hypertension, benign 03/25/2023 Class 2 obesity with body ma ss index (BMI) of 35.0 to 35.9 in adult 03/25/2023 Shortness of breath 03/25/2023 Hyperlipidemia 03/25/2023 Jaw pain 03/25/2023 Atypical chest pain 03/25/2023 Resolved Problems Problem Noted Date Diagnosed Date Resolved Date Angina pectoris, unstable (Multi) 03/25/2023 03/25/2023 Family History Medical History Relation Name Comments Asthma Brother Coronary artery disease Brother No Known Problems Father Aortic stenosis Mother Lupus Mother carotid artery plaque Mother Relation Name Status Comments Brother Father Mother Social History Tobacco Use Types Packs/Day Years Used Date Smoking Tobacco: Former Cigarettes Tobacco Cessation:Counseling Given: Not Answered Alcohol Use Standard Drinks/Week Comments Not Currently 0 (1 standard drink = 0.6 oz pur e alcohol) socially Comments Unknown Sex and Gender Information Value Date Recorded Sex Assigned at Not on file Legal Sex Female 9:42 AM EDT Gender Identity Not on file Sexual Orientation Not on file Last Filed Vital Signs Vital Sign Reading Time Taken Comments Blood Pressure 128/74 03/25/2023 1:06 PM EST Pulse 76 03/25/2023 1:06 PM EST Temperature - - Respiratory Rate - - Oxygen Saturation - - Inhaled Oxygen Concentration - - Weight 99.3 kg (219 lb) 03/25/2023 1:06 PM EST Height 167.6 cm (5' 6 ) 03/25/2023 1:06 PM EST Body Mass Index 35.35 03/25/2023 1:06 PM EST Plan of Treatment Health Maintenance Due Date Last Done Comments Bone Density Scan 1952 CT Colonography 1952 FIT-DNA (Cologuard) 1952 FIT 1952 Lipid Panel 1950 Medicare Annual Wellness Visit (AWV) 1952 Sigmoidoscopy 1952 TSH Level 1952 Diabetes Screening 1970 Hepatitis C Screening 1970 DTaP/Tdap/Td Vaccines (1 - Tdap) 1974 Mammogram 1992 Zoster Vaccines (1 of 2) 2002 Pneumococcal Vaccine (2 of 2 - PCV20 or PCV21) 02/06/2020 02/05/2019 COVID-19 Vaccine (5 - season) 2024 07/15/2022, 04/17/2021, 09/03/2020, Additional history exists Influenza Vaccine (#1) 2025 RSV High Risk: (Elderly (60+) or Population) (1 - 1-dose 75+ series) 11/03/2027 Colonoscopy 08/17/2032 08/17/2022 Colorectal Cancer Screening 08/17/2032 HIB Vaccines Aged Out No longer eligi ble based on patient's age to complete this topic HPV Vaccines Aged Out No longer eligi ble based on patient's age to complete this topic Hepatitis A Vaccines Aged Out No long er eligible based on patient's age to complete this topic Hepatitis B Vaccines Aged Out No long er eligible based on patient's age to complete this topic IPV Vaccines Aged Out No longer eligi ble based on patient's age to complete this topic Meningococcal Vaccine Aged Out No tre aaron eligible based on patient's age to complete this topic Rotavirus Vaccines Aged Out No longer eligible based on patient's age to complete this topic Insurance MEDICARE PART A AND B [facility] MEDICARE SUPPLEMENT MEDICARE PART A AND B [facility] MEDICARE SUPPLEMENT Care Teams Principal Clerk Typist Relationship Specialty Start Date End Date Ranjana Bull MD [facility] [place] [address] PCP - General 01/19/23
--- OUTSIDE RECORDS SUMMARY | 2024-11-22 10:37 | XMS_ITS | Clinical Summary ---
Author Organization [employer] [facility] Address [id number] [address] [place] [address] Care Team Providers Care Project Leader Name Role Phone Ranjana Bull MD Primary Care Provider [phone] Allergies Active Allergy Reactions Criticality Noted Date Comments Codeine Rash Medium 01/30/2021 Prednisolone 03/17/2021 Other reaction(s): Swollen Lymph nodes Phenazopyridine Nausea Medium 02/20/2021 Medications levothyroxine (SYNTHROID, LEVOTHROID) 175 MCG tabletIndicatio ns:hypothyroidi sm Take 150 mcg by mouth in the morning. Indications: a condition with low thyroid hormone levels. Active losartan (COZAAR) 50 mg tabletIndicatio ns:hypertension Take 1 tablet (50 mg total) by mouth in the morning. Indications: high blood pressure. Active atorvastatin (LIPITOR) 20 mg tablet Take 1 tablet (20 mg total) by mouth in the morning. Active amLODIPine (NORVASC) 10 mg tablet Take 1 tablet (10 mg total) by mouth in the morning. Active nitroglycerin (NITROSTAT) 0.[address] 1 tablet (0.4 mg total) under the tongue every 5 (five) minutes as needed for chest pain. Active Active Problems Problem Noted Date Diagnosed Date Encounter for follow-up surveillance of bladder cancer 11/19/2024 Urgency incontinence 12/22/2021 Overview (12/22/2021): 12/22/21: Urgency. Since discussed with plan for trial of VESIcare Malignant neoplasm of overlapping sites of bladd er 02/20/2021 Cancer Staging:Clinical stage from 03/17/2021:Stage 0a(cTa, cN0, cM0) - Signed by Jose Grissom MD on 03/17/2021 Pathologic stage from 03/17/2021:Stage 0a(television and radio repairer, pN0, cM0) - Signed by Jose Grissom MD on 03/17/2021 Overview (03/12/2021): 02/20/21: Newly diagnosed left bladder wall mass with history of prior radiation therapy and chemotherapy for anal cancer in 2005 2006. Plan for cysto under anesthesia with TURBT should tumor be present. The risks and benefits as outlined in the consent were discussed. All relevant drawings were reviewed. All questions were answered. 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 Explained high risk of recurrence (50-70%). Recommendation was for follow-up surveillance cystoscopy 3 months Family History Medical History Relation Name Comments Hypertension Father Lupus Mother Anesthesia problems Neg Hx Relation Name Status Comments Daughter Alive Father Mother Son 1 Alive Son 2 Alive Social History Tobacco Use Types Packs/Day Years Used Date Smoking Tobacco: Former Cigarettes 0.3 15 1 984 - 1998 Smokeless Tobacco: Never Tobacco Cessation:Counseling Given: Not Answered Alcohol Use Standard Drinks/Week Comments Yes 0 [...] Sign Reading Time Taken Comments Blood Pressure 143/91 03/17/2021 10:08 AM EST Pulse 63 03/17/2021 10:08 AM EST Temperature 36.9 C (98.4 F) 03/06/2021 3:27 PM EDT Respiratory Rate 17 03/06/2021 3:27 PM EDT Oxygen Saturation 95% 03/06/2021 3:27 PM EDT Inhaled Oxygen Concentration - - Weight 95.3 kg (210 lb) 12/17/2022 11:43 AM EDT Height 167.6 cm (5' 6 ) 12/17/2022 11:43 AM EDT Body Mass Index 33.89 12/17/2022 11:43 AM EDT Plan of Treatment Upcoming Encounters Date Type Department Care Team (Latest Contact Info) Description 12/24/2024 3:50 PM EDT Support Visit [facility] - Pre Admit [address] [place] [address] 12/25/2024 10:30 AM EDT Hospital Encounter [facility] - Surgery [address] [place] [address] Jose Grissom MD [address] [place] [address] 12/25/2024 10:30 AM EDT - 12/25/2024 11:00 AM EDT Surgery [facility] - Surgery [address] [place] [address] Jose Grissom MD [address] [place] [address] CYSTOSCOPY [[id number] (CPT )] Scheduled Procedures Name Priority Associated Diagnoses Date/Ti me CYSTOSCOPY Encounter for follow-up surveillance of bladder cancer 12/25/2024 10:30 AM EDT Health Maintenance Due Date Last Done Comments Depression Screening 1964 DTaP,Tdap and Td Vaccines (1 - Tdap) 11/03/1971 Zoster (Shingles) Vaccine (1 of 2) 11/03/1971 Fall Risk Screening 2017 Adult BMI Screening 12/18/2023 12/17/2022 COVID-19 Vaccine (5 - 2023-2 5 season) 2024 07/15/2022, 04/17/2021, 09/03/2020, Additional history exists Tobacco Screening 12/19/2024 12/20/2023 Influenza Vaccine 01/07/2025 Colonoscopy 02/11/2031 02/11/2021 Goals Goal Patient Goal Type Associated Problems Recent Progress Patient-Stated? Author [employer]ogen[employer] dinesh Goal Care Plan Autogenerated Problem No [place], [employer] Not on file Procedures Procedure Name Priority Date/Time Associated Diagnosis Comments COLONOSCOPY Routine 02/11/2021 History of anal cancer Change in bowel habits Abdominal pain, generalized from Last 3 Months or Most Recently Relevant to Health Maintenance Results * Colonoscopy (02/11/2021) Stan Parada DO GI PROCEDURE ORDERABLES Fin al Result MANUALLY TRANSCRIBED RESULTS from Last 3 Months or Most Recently Relevant to Health Maintenance Additional Health Concerns Active Problems Noted Date Diagnosed Date Autogenerated Problem 11/20/2024 Insurance MEDICARE [employer] Care Teams Project Leader Relationship Specialty Start Date End Date Ranjana Bull MD [address] [place] [phone] PCP - General Family Medicine 12/26/20
--- OUTSIDE RECORDS SUMMARY | 2024-11-22 10:37 | XMS_ITS | Encounter Summary ---
Author Organization [facility] Address [address] [place] [address] Phone Care Team Providers Care Monogram Maker Name Role Phone Ranjana Bull MD Primary Care Provider [phone] Reason for Visit * Reason Comments Med Refill Encounter Details Date Type Department Care Team (Late st Contact Info) Description 02/03/2024 Refill [facility] [address] [facility] [address] [place] [address] Eleazar Nagy MD [address] [facility] [address] [place] [address] Social History Tobacco Use Types Packs/Day Years Used Date Smoking Tobacco: Former Cigarettes Alcohol Use Standard Drinks/Week Comments Not Currently [...] Diagnoses Not on filedocumented in this encounter Additional Health Concerns Assessment Noted Time A fall risk assessment has been complete d for the patient 03/25/2023 1:06 PM EST documented as of this encounter Care Teams Monogram Maker Relationship Specialty Start Date End Date Ranjana Bull MD [address] [place] [address] [address] [place] [address] PCP - General 01/19/23 documented as of this encounter
--- NOTE | 2024-11-22 10:40 | MM_ITS ---
Patient Name: JUSTIN DUGGAN MR#: [id number] : 1950 Exam Date: 11/22/2024 Ordering Doctor: DR KATE PRADO M.D. RADIOLOGY REPORT PROCEDURE: MM TOMOSYNTHESIS SCREENING BI COMPARISON: MM TOMOSYNTHESIS SCREENING BI, 07/19/2023. MG MAMM SCREEN 3D THOMPSON CAD, 07/12/2022. MG MAMM SCREEN THOMPSON W CAD, 01/16/2019. MG MAMM THOMPSON SCRN W CAD DIG, 04/24/2010. INDICATIONS: Screening Calculator Name NCI Breast Cancer Risk Assessment Tool 5 Year Breast Cancer Risk 1.30% Lifetime Breast Cancer Risk 3.30% Personal Breast Cancer No Personal Ovarian Cancer No Treatments Surgery, radiation, chemotherapy. Family Cancers None LOCATION: [facility] BREAST COMPOSITION: The breasts are almost entirely fatty. FINDINGS: RIGHT BREAST: No significant suspicious finding. Left breast: No significant suspicious findings. DIAGNOSTIC CATEGORY 1--NEGATIVE. RECOMMENDATIONS: ROUTINE MAMMOGRAM AND CLINICAL EVALUATION IN 12 MONTHS. PLEASE NOTE: A NORMAL MAMMOGRAM DOES NOT EXCLUDE THE POSSIBILITY OF BREAST CANCER. A CLINICALLY SUSPICIOUS PALPABLE LUMP SHOULD BE BIOPSIED. Dictated by: Kenneth Shaw DO on 11/22/2024 at 13:16 Approved by: Kenneth Shaw DO on 11/22/2024 at 13:21
--- NOTE | 2024-11-22 10:40 | US_ITS ---
[place] [id number] Patient Name: JUSTIN DUGGAN MRN: [id number] date: 1950 Sex: F Assigned Patient Location: [facility] Current Patient Location: [facility] Accession/Order Number: [id number] Exam Date: 11/22/2024 12:09 Report Date: 11/22/2024 12:10 At the request of: KATE PRADO MD Procedure: US thyroid THYROID ULTRASOUND COMPARISON: None CLINICAL DATA: Hypothyroidism. The right thyroid lobe measures 27 x 9 x 11 mm. The left lobe measures 25 x 10 x 10 mm. The isthmus measures 2 mm . Thyroid echotexture is heterogeneous. No discrete thyroid nodularity is seen. US/US thyroid IMPRESSION: RELATIVELY SMALL, HETEROGENEOUS THYROID. NO DISCRETE NODULARITY. Impression dictated by: Clarisa Neal M.D. 11/22/2024 12:10 PM Dictation Location: [place] [address] Electronically authenticated by: [id number] Y Date: 11/22/2024 12:10
--- NOTE | 2024-11-22 10:40 | XR_ITS ---
The [address] [address] Patient Name: JUSTIN DUGGAN MRN: [id number] date: 1950 Sex: F Assigned Patient Location: [facility] Current Patient Location: [facility] Accession/Order Number: [id number] Exam Date: 11/22/2024 11:20 Report Date: 11/22/2024 11:21 At the request of: KATE PRADO MD Procedure: XR chest 2V PA AND LATERAL CHEST: CLINICAL HISTORY: Right Sided Chest Pain COMPARISON: 03/04/2023 FINDINGS: Unremarkable cardiac silhouette. Lungs are clear. No effusion or pneumothorax. Degenerative changes thoracic spine. XR/XR chest 2V IMPRESSION: NO ACUTE CARDIOPULMONARY ABNORMALITY. Impression dictated by: Tanvir Malave M.D. 11/22/2024 11:21 AM Dictation Location: [place] [address] Electronically authenticated by: [id number] Y Date: 11/22/2024 11:21
== END 2024-11-22 10:36 | disposition home or self-care (01) ==
LOC: MAMMO 10:35
PROVIDERS: PCP Family Medicine; Visit Provider Family Medicine
DX: Z12.31 Encounter for screening mammogram for malignant neoplasm of breast (principal); E03.9 Hypothyroidism, unspecified; E04.1 Nontoxic single thyroid nodule; R07.9 Chest pain, unspecified
CPT/HCPCS: 71046; 76536; 77063; 77067

== ENCOUNTER 2024-11-27 07:16 | Outpatient (OUT) | payer MEDICARE, OTHER, SELFPAY ==
--- OUTSIDE RECORDS SUMMARY | 2024-11-27 07:18 | XMS_ITS | Encounter Summary ---
Author Organization [facility] Address [address] [place] [address] Phone Care Team Providers Care Vp Revenue Cycle Name Role Phone Ranjana Bull MD Primary Care Provider [phone] Encounter Details Date Type Department Care Team ([facility] st Contact Info) Description 01/19/2023 Scanned Document [facility] [address] [place] [address] Conversion, Onbase Social History Tobacco Use Types [...] on filedocumented in this encounter Care Teams Vp Revenue Cycle Relationship Specialty Start Date End Date Ranjana Bull MD [address] [place] [address] [address] [place] [address] PCP - General 01/19/23 documented as of this encounter
--- OUTSIDE RECORDS SUMMARY | 2024-11-27 07:18 | XMS_ITS | Encounter Summary ---
Author Organization [facility] Address [address] [place] [address] Phone Care Team Providers Care Shopper Marketing Manager Name Role Phone Ranjana Bull MD Primary Care Provider Encounter Details Date Type Department Care Team (Late st Contact Info) Description 01/18/2023 Scanned Document [facility] [address] [place] [address] Conversion, Onbase Social History Tobacco Use Types [...] on filedocumented in this encounter Care Teams Shopper Marketing Manager Relationship Specialty Start Date End Date Ranjana Bull MD [address] [place] [address] PCP - General 01/19/23 documented as of this encounter
--- OUTSIDE RECORDS SUMMARY | 2024-11-27 07:18 | XMS_ITS | Clinical Summary ---
Author Organization [facility] Address [address] [place] [address] Phone Care Team Providers Care Outsole Compressor Name Role Phone Ranjana Bull MD Primary Care Provider [phone] Allergies Active Allergy Reactions Criticality Noted Date [...] Insurance MEDICARE PART A AND B [facility] MEDICARE SUPPLEMENT MEDICARE PART A AND B [facility] MEDICARE SUPPLEMENT Care Teams Outsole Compressor Relationship Specialty Start Date End Date Ranjana Bull MD [facility] [facility] [place] [address] PCP - General 01/19/23
--- OUTSIDE RECORDS SUMMARY | 2024-11-27 07:18 | XMS_ITS | Encounter Summary ---
Author Organization [facility] Address [id number] [address] [place] [address] Care Team Providers Care Foot Roentgenologist Name Role Phone Ranjana Bull MD Primary Care Provider [phone] Encounter Details Date Type Department Care Team (Late st Contact Info) Description 02/20/[address] [facility] [address] [place] [address] Valarie Boswell RMA Social History Tobacco Use [...] Description 12/24/2024 3:50 PM EDT Support Visit [facility] - Pre Admit [address] [place] [address] 12/25/2024 10:30 AM EDT Hospital Encounter [facility] - Surgery [address] [place] [address] Jose Grissom MD [address] [place] [address] 12/25/2024 10:30 AM EDT - 12/25/2024 11:00 AM EDT Surgery [facility] [address] [place] [address] Jose Grissom MD [address] [place] [address] CYSTOSCOPY [31264 (CPT )] Scheduled Procedures Name Priority Associated Diagnoses Date/Ti me CYSTOSCOPY Encounter for follow-up surveillance of bladder cancer 12/25/2024 10:30 AM EDT documented as of this encounter Visit Diagnoses Not on filedocumented in this encounter Care Teams Foot Roentgenologist Relationship Specialty Start Date End Date Ranjana Bull MD [address] [place] [address] PCP - General Family Medicine 12/26/20 documented as of this encounter
--- OUTSIDE RECORDS SUMMARY | 2024-11-27 07:18 | XMS_ITS | Clinical Summary ---
Author Organization [facility] Address [address] [place] [address] Care Team Providers Care Chisel Worker Name Role Phone Unavailable Primary Care Provider [...]
--- OUTSIDE RECORDS SUMMARY | 2024-11-27 07:18 | XMS_ITS | Encounter Summary ---
Author Organization [facility] Address [address] [place] [address] Phone Care Team Providers Care Grocery Store Bagger Name Role Phone Ranjana Bull MD Primary Care Provider [phone] Reason for Visit * Reason Comments Med Refill Encounter Details Date Type Department Care Team (Late st Contact Info) Description 02/03/2024 Refill [facility] [address] [facility] [address] [place] [address] Eleazar Nagy MD [address] [facility] [address] [place] [address] Social History Tobacco Use Types [...] documented as of this encounter Care Teams Grocery Store Bagger Relationship Specialty Start Date End Date Ranjana Bull MD [address] [place] [address] [place] [address] PCP - General 01/19/23 documented as of this encounter
--- OUTSIDE RECORDS SUMMARY | 2024-11-27 07:18 | XMS_ITS | Clinical Summary ---
Author Organization [facility] [employer] [facility] Address [id number] [address] [place] [address] Care Team Providers Care Christmas Tree Grower Name Role Phone Ranjana Bull MD Primary Care Provider [phone] Allergies Active Allergy Reactions Criticality Noted Date [...] MD on 03/17/2021 Pathologic stage from 03/17/2021:Stage 0a(e commerce web developer, pN0, cM0) - Signed by Jose Grissom [...] Description 12/24/2024 3:50 PM EDT Support Visit [facility] - Pre Admit [address] [place] [address] 12/25/2024 10:30 AM EDT Hospital Encounter [facility] - Surgery [address] [place] [address] Jose Grissom MD [address] [place] [address] 12/25/2024 10:30 AM EDT - 12/25/2024 11:00 AM EDT Surgery [facility] - Surgery [address] [place] [address] Jose Grissom MD [address] [place] [address] CYSTOSCOPY [64998 (CPT )] Scheduled Procedures Name Priority Associated [...] Date Autogenerated Problem 11/20/2024 Insurance MEDICARE MEDICAL DICKENS Care Teams Christmas Tree Grower Relationship Specialty Start Date End Date Ranjana Bull MD [address] [place] [address] PCP - General Family Medicine 12/26/20
--- OUTSIDE RECORDS SUMMARY | 2024-11-27 07:18 | XMS_ITS | Encounter Summary ---
Author Organization [facility] Address [address] [place] [address] Phone Care Team Providers Care Dough Puncher Name Role Phone Ranjana Bull MD Primary Care Provider [phone] Encounter Details Date Type Department Care Team (Late st Contact Info) Description 02/07/2023 Scanned Document [facility] [address] [place] [phone] Scanning, Generic Provider Social History Tobacco Use [...] on filedocumented in this encounter Care Teams Dough Puncher Relationship Specialty Start Date End Date Ranjana Bull MD [address] [place], [place] [phone] PCP - General 01/19/23 documented as of this encounter
--- OUTSIDE RECORDS SUMMARY | 2024-11-27 07:18 | XMS_ITS | Encounter Summary ---
Author Organization [facility] Address [id number] [address] [place] [address] Care Team Providers Care Senior Bi Developer Name Role Phone Ranjana Bull MD Primary Care Provider [phone] Encounter Details Date Type Department Care Team (Late st Contact Info) Description 12/20[facility]20[facility] [address] [place] [phone] Jose Grissom MD [address] [place] [address] Social History Tobacco Use Types Packs/Day Years [...] not included. Please schedule for cysto, local, [place] Schedule in 1 year Diagnosis bladder cancer [...] 3:50 PM EDT Support Visit [facility] - Pre Admit [address] [place] [address] 12/25/2024 10:30 AM EDT Hospital Encounter [facility] - Surgery [address] [place] [address] Jose Grissom MD [address] [place] [address] 12/25/2024 10:30 AM EDT - 12/25/2024 11:00 AM EDT Surgery [facility] Surgery [address] [place] [address] Jose Grissom MD [address] [place] [address] CYSTOSCOPY [91398 (CPT )] Scheduled Procedures Name Priority Associated Diagnoses Date/Ti me CYSTOSCOPY Encounter for follow-up surveillance of bladder cancer 12/25/2024 10:30 AM EDT documented as of this encounter Visit Diagnoses Not on filedocumented in this encounter Care Teams Senior Bi Developer Relationship Specialty Start Date End Date Ranjana Bull MD [address] [place] [address] PCP - General Family Medicine 12/26/20 documented as of this encounter
--- NOTE | 2024-11-27 07:19 | US_ITS ---
The [place] [id number] Patient Name: JUSTIN DUGGAN MRN: [id number] date: 1950 Sex: F Assigned Patient Location: [place] Current Patient Location: [place] Accession/Order Number: [id number] Exam Date: 11/27/2024 09:14 Report Date: 11/27/2024 09:17 At the request of: KATE PRADO MD Procedure: US right upper quadrant LIMITED ABDOMINAL ULTRASOUND: CLINICAL HISTORY: Abnormal Liver Function Tests COMPARISON: None TECHNIQUE: Grayscale and color Doppler images of the right upper quadrant organs were obtained. FINDINGS: Pancreas: A hypodense area seen involving the pancreatic head region measuring 3.2 x 1.9 x 1.3 cm. Liver: Cirrhotic appearing liver. No focal mass or intrahepatic bile duct dilatation. Hepatopedal flow is seen within the portal vein. Trace ascites. Gallbladder: Removed. CBD: 7.2 mm RT KIDNEY: No Hydronephrosis US/US right upper quadrant IMPRESSION: CIRRHOTIC APPEARING LIVER WITHOUT MASS. HYPODENSE AREAS SEEN INVOLVING THE PANCREATIC HEAD REGION MEASURING 3.2 X 1.9 X 1.3 CM. FINDING IS NONSPECIFIC. THIS CAN BE FURTHER EVALUATED BY CT UTILIZING PANCREAS PROTOCOL.. Impression dictated by: Jersey Warner Jr., D.O. 11/27/2024 9:17 AM Dictation Location: [place] [address] Electronically authenticated by: [id number] Y Date: 11/27/2024 09:17
--- OUTSIDE RECORDS SUMMARY | 2024-11-27 07:19 | XMS_ITS | CCD ---
Author Organization [facility] Care Team Providers Care Construction Engineering Manager Name Role Phone EVE, DR RANJANA Ji Admitting Unavailable EVE, DR RANJANA Ji Attending Unavailable EVE, DR RANJANA Ji Primary Care Unavailable KATI SPENCER V Consulting Unavailable EVE, DR RANJANA Ji Consulting Unavailable EVE, DR RANJANA Ji Admitting Unavailable EVE, DR RANJANA Ji Attending Unavailable EVE, DR RANJANA Ji Primary Care Unavailable EVE, DR RANJANA Ji Consulting Unavailable EVE, DR RANJANA Ji Admitting Unavailable EVE, DR RANJANA Ji Attending Unavailable EVE, DR RANJANA Ji Primary Care Unavailable EVE, DR RANJANA Ji Consulting Unavailable RANJANA PRADO Primary Care Physician Ranjana Prado Unavailable Ranjana Prado Unavailable Unavailable Unavailable Dr. Ranjana Prado Primary Care Unav ailDebbie Barba Attending Unavailable eDbbie Nagy Referring Unavailable Dr. Ranjana Prado Primary Care Unav ailDebbie Barba Attending Unavailable Ranjana Prado MD Primary Care [...] Primary Care Provider UnavailJOSIE Dodge Attending Unavailable RANJANA PRADO Referring Unavailable TATTERSALL, SENG Attending Unavailable PRADO, [...] JOSIE Attending Unavailable PRADO, RANJANA Referring Unavailable Prado Ranjana GATES Primary Care Provider [phone] Ranjana Prado MD Attending Provider Allergies Allergy Classification Reported Allergen(s) Allergy Type Date of Onset Reaction(s) Facility (5 sources) Codeine; Translations: [CODEINE] Drug Allergy 03-05-20 13 Rash [facility] Repository (2 sources) Phenazopyridine; Translations: [Pyridium] Drug Allergy 03-05-20 13 [facility] Repository (16 sources) Codeine; Translations: [codeine] Drug Allergy 03-25-20 23 rash [facility] (20 sources) Phenazopyridine; Translations: [phenazopyridine] Drug Allergy 02-21-20 21 Vomiting (disorder), Nausea/vomitin g [facility] (12 sources) prednisoLONE; Translations: [prednisolone ophthalmic] Drug Allergy 03-17-20 21 Swollen Lymph nodes [facility] (8 sources) Codeine Drug Allergy rash [facility] Other (1 source) Codeine Drug Allergy 07-28-19 24 [facility] Repository (1 source) Phenazopyridine Drug Allergy 07-28-19 [facility] Repository Medications Current Medications Medication Drug Class(es) Dates Sig (Normalized) Sig (Original) amLODIPine 10 mg oral tablet (15 sources) Dihydropyridine Calcium Channel Valerie Start: 07-04-2023 End: 07-04-2024 take 1 tablet by mouth once daily Amlodipine 10 mg tablet Active 0 .ROUTE .COMPLEX 90 July 04, 2024 11:15am TAKE 1 TABLET BY MOUTH EVERY DAY FOR 30 DAYS Complies with drug therapy Start: 01-21-2023 End: 07-04-2023 amLODIPine 10 mg Tab Refills (s) 0 Start Date: 04/08/23 Status: Ordered Start: 01-19-2023 End: 03-25-2023 take 1 tablet by mouth once daily Amlodipine 5 mg Tablet Discontinued 5 MG PO Daily January 21, 2023 12:00am January 21, 2023 4:16pm atorvastatin 40 mg oral tablet (20 sources) HMG-CoA Reductase Inhibitor Start: 01-19-2023 End: 02-06-2024 take 1 tablet by mouth once daily at bedtime Atorvastatin 40 mg tablet Active 40 MG PO Daily at bedtime February 06, 2024 1:19pm Complies with drug therapy Start: 07-15-2022 atorvastatin R efills(s) 0 Start [...] tab daily x 4 more days for 5 Dec, Not-Taking cholestyramine resin 4000 mg powder for oral suspension (15 sources) Bile Acid Sequestrant Start: 04-08-2023 cholestyramine 4 g/9 g Oral Pwdr Refill(s) 0 Start Date: 04/08/23 Status: Ordered Start: 04-08-2023 cholestyramine 4 g/9 g Oral Pwdr Refill(s) 0 Start Date: 04/08/23 Status: Ordered Start: 12-06-2022 cholestyramine (Questran) 4 gram packet DISSOLVE 1 PACKET IN WATER OR JUICE AND TAKE DAILY 0 12/06/2022 Active Start: 12-03-2022 End: 07-11-2023 Cholestyramine (With Sugar) Powder Discontinued 1 EACH PO As Directed January 21, 2023 12:00am July 11, 2023 12:04pm Start: 07-15-2022 Questran 4 g/9 g oral powder = 1 packet(s), Oral, Daily, # 30 EA, Refills(s) 11, [id number], cm, 07/15/22 13:08:00 EST, Height/Length [...] day(s), # 20 tab(s), Refills(s) 0, [id number], cm, 07/15/22 13:08:00 EST, Height/Length Dosing, 100.5, kg, 07/15/22 13:08:00 EST, Weight Dosing Start Date: 07/15/22 Stop Date: 07/25/22 Status: Ordered Levsin (9 sources) Start: 07-15-2022 Levsin Refills(s) 0 Start Date: 07/15/22 Status: Ordered levothyroxine sodium 0.15 mg oral tablet (20 sources) l-Thyroxine Start: 08-08-2023 End: 09-06-2024 take 1 tablet by mouth once daily Levothyroxine 150 mcg tablet Active 0 .ROUTE .COMPLEX September 06, 2024 8:35am TAKE 1 TABLET BY MOUTH EVERY DAY Complies with drug therapy Start: 01-21-2023 End: 08-08-2023 take 1 tablet by mouth once daily [...] EVERY DAY for 90 Active losartan potassium 100 mg oral tablet (20 sources) Angiotensin 2 Receptor Valerie Start: 05-04-2024 End: 10-22-2024 take 1 tablet by mouth once daily Losartan 100 mg tablet Active 0 .ROUTE .COMPLEX 90 October 22, 2024 4:40pm TAKE 1 TABLET BY MOUTH DAILY Complies with drug therapy Start: 02-06-2024 End: 05-04-2024 take 1 tablet by mouth once daily Losartan 100 mg tablet Discontinued 100 MG PO Daily February 06, 2024 1:33pm May 04, 2024 9:06am Start: 02-06-2024 End: 02-06-2024 take 1 tablet by mouth twice daily Losartan 100 mg tablet Discontinued 0 PO Daily February 06, 2024 1:31pm February 06, 2024 1:34pm TAKE 1 TABLET BY MOUTH TWICE A DAY FOR 90 DAYS orally daily; Start: 10-27-2023 End: 02-06-2024 take 1 tablet by mouth twice daily Losartan 50 mg tablet Discontinued 0 .ROUTE .COMPLEX 180 October 27, 2023 8:43am February 06, 2024 1:32pm TAKE 1 TABLET BY MOUTH TWICE A DAY FOR 90 DAYS Start: 01-19-2023 End: 10-27-2023 take 1 tablet by mouth twice daily Losartan 50 mg Tablet Discontinued 50 MG PO Twice daily January 21, 2023 12:00am October 27, 2023 8:43am Start: 03-31-2020 take 1 tablet by kim once daily losartan 50 mg Tab 50 [...] tablet Orally Once a day Jan, Active polyethylene glycol 3350 [id number] mg / potassium chloride 1480 mg / sodium bicarbonate 5720 mg / sodium chloride 25270 mg powder for oral solution (1 source) Osmotic Laxative Start: 08-02-2022 NuLYTELY Lorenzo oral powder for reconstitution See Instructions, 1 EA, Refill(s) 0, Prior to colonoscopy., [facility]/pharmacy #[id number], 168, cm, 07/15/22 13:08:00 EST, Height/Length Dosing, 100.5, kg, 07/15/22 13:08:00 EST, Weight Dosing Start Date: 08/02/22 Status: Ordered predniSONE 20 mg oral tablet (3 sources) Start: 03-04-2023 take 2 tablets by mouth every twenty-four hours predniSONE 20 MG 2 tablets Orally Once a day for 5 days Feb, Active Psyllium (6 sources) Start: 09-03-2022 Metamucil Refills(s) 0 Start Date: 09/03/22 Status: Ordered Vitamin D3 (10 sources) Start: 04-01-2020 take 25 ug by mouth once daily Vitamin D3 25 mcg, Oral, Daily, Prophylaxis Start Date: 04/01/20 Status: Ordered Completed/Discontinued Medications Medication Drug Class(es) Dates Sig (Normalized) Sig (Original) [id number] 200 actuat albuterol 0.09 mg/actuat metered dose inhaler (9 sources) beta2-Adrenergic Agonist Start: 07-08-2023 End: 02-23-2024 take 1 puff(s) by inhalation every four hours Albuterol Sulfate 90 mcg/actuation HFA aerosol inhaler Discontinued 2 PUFF INHALATION Every 4 hours July 08, 2023 1:00am February 23, 2024 9:27am Start: 01-06-2023 take 2 puff(s) by in [...] Inhalation every 4 hrs prn Dec, Active aspirin 325 mg oral tablet (2 sources) Platelet Aggregation Inhibitor, Nonsteroidal Anti-inflammatory Drug Start: 01-21-2023 End: 01-21-2023 take 1 tablet by mouth once daily Aspirin 325 mg Tablet Discontinued 325 MG PO Daily January 21, 2023 12:00am January 21, 2023 4:16pm Start: 01-19-2023 take 1 tablet by kim th once daily Aspirin 325 MG Oral Tablet TAKE 1 TABLET DAILY. Quantity: 90 Refills: 3 Ordered: 19-Jan-2023 Debbie Nagy MD Start : 19-Jan-2023 Active meclizine hydrochloride 25 mg oral tablet (1 source) Antiemetic Start: 04-17-2024 End: 11-19-2024 take 1 tablet by mouth twice daily as needed for dizziness Meclizine 25 mg tablet Discontinued 25 MG PO Twice daily as needed for dizziness April 17, 2024 1:00am November 19, 2024 11:23am nitroglycerin 0.4 mg sublingual tablet (3 sources) Nitrate Vasodilator Start: 01-19-2023 End: 07-08-2023 Nitroglycerin 0.4 mg Tablet, Sublingual Discontinued 0.4 MG SUBLINGUAL Q5M as needed for Angina January 21, 2023 12:00am July 08, 2023 12:33pm do not exceed 3 doses per episode Start: 01-19-2023 Nitroglycerin 0.4 MG Sublingual Tablet Sublingual as directed Quantity: 25 Refills: 5 Ordered: 19-Jan-2023 Debbie Nagy MD Start : 19-Jan-2023 Active new Problems Active Problems Problem Classification Problem Date Documented Da te Episodic/Chronic Anal and rectal conditions (7 sources) Radiation proctitis; Translations: [Radiation proctitis] Onset: 09-03-2022 Episodic Cancer of bladder (1 source) Malignant neoplasm of overlapping sites of bladder; Translations: [Malignant neoplasm of overlapping sites of bladder] Onset: 12-20-2023 Chronic Cancer of bladder (1 source) H/O: malignant neoplasm; Translations: [Personal history of malignant neoplasm of bladder] 11-19-2024 Episodic Cancer of rectum and anus (11 sources) Malignant tumor of anus; 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, unspecified] Onset: 07-15-2022 Chronic Cancer of rectum and anus (12 sources) History of malignant neoplasm of rectum; Translations: [Personal history of other malignant neoplasm of rectum, rectosigmoid junction, and anus] Onset: 09-03-2022 Episodic Chronic obstructive pulmonary disease and bronchiectasis (2 sources) Bronchitis, not specified as acute or chronic Episodic Conditions associated with dizziness or vertigo (4 sources) Vertigo; Translations: [Dizziness and giddiness] 04-19-2024 Episodic Diabetes mellitus without complication (1 source) Impaired fasting glucose Episodic Disorders of lipid metabolism (20 sources) Pure hypercholesterolemia; Translations: [Pure hypercholesterolemia, unspecified] [...] gastroenteritis and colitis, unspecified] Onset: 07-14-2022 Episodic Nonspecific chest pain (7 sources) Atypical chest pain; Translations: [Other chest pain] Onset: 01-21-2023 03-25-2023 Episodic Other and unspecified benign neoplasm (7 sources) Polyp of colon; Translations: [Polyp of colon] Onset: 09-03-2022 Episodic Other and unspecified benign neoplasm (8 sources) History of polyp of colon; Translations: [Personal history of colonic polyps] Onset: 12-03-2022 Episodic Other diseases of veins and lymphatics (1 source) Vascular insufficiency; Translations: [Venous insufficiency (chronic) (peripheral)] 02-23-2024 Episodic Other gastrointestinal disorders (3 sources) Intestinal [...] of breath Episodic Other nervous system disorders (13 sources) Impairment of balance; Translations: [Other abnormalities of gait and mobility] 07-08-2023 Episodic Other nervous system disorders (1 source) [...] conditions (not mental disorders or infectious disease) (7 sources) Encounter for screening mammogram for malignant neoplasm of breast; Translations: [Patient encounter status] Onset: 07-12-2022 Episodic Other skin disorders (1 source) Localized swelling, mass and lump, lower limb, bilateral; Translations: [Localized swelling, mass and lump, lower limb, bilateral] Onset: 08-05-2023 Episodic Other skin disorders (1 source) Bilateral localized swelling of lower legs; Translations: [Localized swelling, mass and lump, lower limb, bilateral] 07-11-2023 Episodic Residual codes; unclassified (1 source) Bilateral lower limb edema; Translations: [Localized edema] 07-28-2023 Episodic Screening and history of mental health and substance abuse codes (1 source) Ex-smoker; Translations: [Personal history of tobacco use] Episodic Comment on above: 25 years; Spondylosis; intervertebral disc disorders; other back problems (1 source) Neck pain; Translations: [Cervicalgia] 07-11-2023 Episodic Thyroid disorders (20 sources) Other specified hypothyroidism; Translations: [Hypothyroidism, unspecified] [...] pectoris] Onset: 03-25-2023 Resolved: 03-25-2023 03-25-2023 Chronic Other gastrointestinal disorders (2 sources) Swollen abdomen; [...] for choosing us for your care. Normal [facility] Gastroenterology Office/Clin ic Noteon 04-09-2024 Gastroenterology Office/Clinic [...] thinners. Denies GLP-1 agonists. Last visit 04/08/23 w/[facility]: Assessment/Plan 1. 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: Other [...] - Not Given Patient Refuses SARS-CoV-2 (COVID-19) [id number] 07/15/2022 Recorded SARS-CoV-2 (COVID-19) mRNA BNT-162b2 vax 04/17/2021 Recorded SARS-CoV-2 (COVID-19) mRNA BNT-162b2 vax 09/03/2020 Recorded SARS-CoV-2 (COVID-19) mRNA BNT-162b2 vax 08/13/2020 Recorded pneumococcal 13-valent vaccine 02/05/2019 Recorded Normal [facility] Comment on above: Result Comment: Elec tronically Signed By: Otis GATES, Arvind Garcia\.mik\Date and Time Signed: 04/09/24 10:45 EST US venous duplex LE BIon US venous duplex LE BI [facility] [address] [place] [address] [place] [id number] Ultrasound Report Signed Patient: Yaa Duggan MR#: [id number] : 1950 Acct:[id number] Age/Sex: 72 / F ADM Date: 08/05/23 Loc: Room: Type: [facility] Attending Dr: Constantine Hilton MD Ordering [...] Kenneth Santos M.D.08/09/2023 12:31 PM Dictation Location: [place] [address] Tech: Kristen Chacon Transcribed By: RUTHANN 08/09/23 1231 Dictated By: Kenneth Santos MD 08/09/23 1229 Signed By: 08/09/23 1231 Normal [facility] Blood Urea Nitrogenon 2022 Urea nitrogen [Mass/Vol] 15 mg/dL Normal 7-25 [facility] Comment on above: Performed By: #### C REAT, CBC, BUN, LYTES, LIPID, PP #### [facility] [address] [place] [address] [facility] Coagulation Profileon 2022 aPTT Coag (Bld) [Time] 28.2 s Normal 25.1-36.5 [facility] Comment on above: Result Comment: A he matocrit value greater than 55% may lead to inaccurate results in coagulation testing. Patients having hematocrit values >55% require a special collection tube for coagulation studies. Please contact the laboratory at [phone] for redraw instructions. PERFORMED BY: [address] [place] [address] PATHOLOGIST FAMILY AND CONSUMER EDUCATION TEACHER LYLY RIZO M.D. Performed By: #### C REAT, CBC, BUN, LYTES, LIPID, PP #### [facility] [address] [place] [address] [facility] INR Coag (PPP) [Relative time] 1.0 {INR} Normal [facility] Comment on above: Result Comment: INR Therapeutic [...] REAT, CBC, BUN, LYTES, LIPID, PP #### [address] PT Coag (PPP) [Time] 11.6 s Normal 9.0-12.9 [facility] Comment on above: Result Comment: A he matocrit value greater than 55% may lead to inaccurate results in coagulation testing. Patients having hematocrit values >55% require a special collection tube for coagulation studies. Please contact the laboratory at [phone] for redraw instructions. Performed By: #### C REAT, CBC, BUN, LYTES, LIPID, PP #### [address] Complete Blood Count Auto Di ffon 01-21-2023 Basophils (Bld) [#/Vol] 0.0 10*3/uL Normal 0.0-0.2 [facility] Comment on above: Result Comment: PERF ORMED BY: [place] [address] PATHOLOGIST FAMILY AND CONSUMER EDUCATION TEACHER LYLY RIZO M.D. Performed By: #### C REAT, CBC, BUN, LYTES, LIPID, PP #### [address] Basophils/100 WBC (Bld) 0.4 % Normal . [facility] Comment on above: Performed By: #### C REAT, CBC, BUN, LYTES, LIPID, PP #### [address] Eosinophils (Bld) [#/Vol] 0.1 10*3/uL Normal 0.0-0.45 [facility] Comment on above: Performed By: #### C REAT, CBC, BUN, LYTES, LIPID, PP #### [address] Eosinophils/100 WBC (Bld) 1.3 % Normal . [facility] Comment on above: Performed By: #### C REAT, CBC, BUN, LYTES, LIPID, PP #### [address] Erythrocyte distribution width (RBC) [Ratio] 14.0 % Normal 11.9-15.3 [facility] Comment on above: Performed By: #### C REAT, CBC, BUN, LYTES, LIPID, PP #### [address] Hematocrit (Bld) [Volume fraction] 40.4 % Normal 34.0-46.4 [facility] Comment on above: Performed By: #### C REAT, CBC, BUN, LYTES, LIPID, PP #### [address] Hemoglobin (Bld) [Mass/Vol] 13.5 g/dL Normal 11.8-15.4 [facility] Comment on above: Performed By: #### C REAT, CBC, BUN, LYTES, LIPID, PP #### [address] Lymphocytes (Bld) [#/Vol] 1.9 10*3/uL Normal 1.00-4.8 [facility] Comment on above: Performed By: #### C REAT, CBC, BUN, LYTES, LIPID, PP #### [address] Lymphocytes/100 WBC (Bld) 30.6 % Normal . [facility] Comment on above: Performed By: #### C REAT, CBC, BUN, LYTES, LIPID, PP #### [address] MCH (RBC) [Entitic mass] 29.1 pg Normal 24.7-34.3 [facility] Comment on above: Performed By: #### C REAT, CBC, BUN, LYTES, LIPID, PP #### [address] MCV (RBC) [Entitic vol] 86.8 fL Normal 80-100 [facility] Comment on above: Performed By: #### C REAT, CBC, BUN, LYTES, LIPID, PP #### [address] Mean Corpuscular HGB Conc 33.5 g/dL Normal 32.0-35.0 [facility] Comment on above: Performed By: #### C REAT, CBC, BUN, LYTES, LIPID, PP #### [address] Monocytes (Bld) [#/Vol] 0.6 10*3/uL Normal 0.0-0.8 [facility] Comment on above: Performed By: #### C REAT, CBC, BUN, LYTES, LIPID, PP #### [address] Monocytes/100 WBC (Bld) 9.1 % Normal . [facility] Comment on above: Performed By: #### C REAT, CBC, BUN, LYTES, LIPID, PP #### [address] Neutrophils (Bld) [#/Vol] 3.6 10*3/uL Normal 1.8-7.7 [facility] Comment on above: Performed By: #### C REAT, CBC, BUN, LYTES, LIPID, PP #### [address] Neutrophils/100 WBC (Bld) 58.6 % Normal . [facility] Comment on above: Performed By: #### C REAT, CBC, BUN, LYTES, LIPID, PP #### [address] NRBC% 0.1 /100{WBC} Normal 0-0.5 [facility] Comment on above: Performed By: #### C REAT, CBC, BUN, LYTES, LIPID, PP #### [address] Platelet mean volume (Bld) [Entitic vol] 8.2 fL Normal 6.3-10.7 [facility] Comment on above: Performed By: #### C REAT, CBC, BUN, LYTES, LIPID, PP #### [facility] [address] Platelets (Bld) [#/Vol] 208 10*3/uL Normal 150-450 [facility] Comment on above: Performed By: #### C REAT, CBC, BUN, LYTES, LIPID, PP #### [address] RBC (Bld) [#/Vol] 4.65 10*6/uL Normal 3.60-5.00 [facility] Comment on above: Performed By: #### C REAT, CBC, BUN, LYTES, LIPID, PP #### [address] WBC (Bld) [#/Vol] 6.1 10*3/uL Normal 3.8-11.6 [facility] Comment on above: Performed By: #### C REAT, CBC, BUN, LYTES, LIPID, PP #### [address] Creatinineon 01-21-2023 Creatinine [Mass/Vol] 0.84 mg/dL Normal 0.60-1.20 [facility] Comment on above: Performed By: #### C REAT, CBC, BUN, LYTES, LIPID, PP #### [address] Creatinine Clr Calc Pharmacy 73.20 [facility] Comment on above: Performed By: #### C REAT, CBC, BUN, LYTES, LIPID, PP #### [address] GFR/1.73 sq M.predicted MDRD (S/P/Bld) [Vol rate/Area] mL/min/{1.73_m2} [facility] Comment on above: Performed By: #### C REAT, CBC, BUN, LYTES, LIPID, PP #### [address] ECG 12 lead ECGon 01-21-2023 ECG 12 lead ECG [facility] [address] [place] [address] [place] [address] Electrocardiograph Report Signed Patient: Yaa Duggan MR#: [id number] : 1950 Acct:[id number] Age/Sex: 72 / F ADM Date: 01/21/23 Loc: CL Room: Type: [facility] Attending Dr: Lori Modi DO Ordering Provider: Lori Modi DO Date of Service: 01/21/23 ECG/ECG 12 lead ECG: pre [facility] Copies to: Test Reason : Blood Pressure [...] MUS Signed By Stan Lara DO 01/21 Normal [facility] Electrolyteson 01-21-2023 Anion gap [Moles/Vol] 10.7 mmol/L Normal 6.0-15.0 [facility] Comment on above: Performed By: #### C REAT, CBC, BUN, LYTES, LIPID, PP #### [facility] [address] [place] [address] [place] Chloride [Moles/Vol] 106 mmol/L Normal 98-107 [facility] Comment on above: Performed By: #### C REAT, CBC, BUN, LYTES, LIPID, PP #### [facility] [address] [place] [address] [place] CO2 [Moles/Vol] 27.9 mmol/L Normal 21.0-31.0 [facility] Comment on above: Performed By: #### C REAT, CBC, BUN, LYTES, LIPID, PP #### [facility] [address] [place] [id number] [place] Potassium [Moles/Vol] 3.6 mmol/L Normal 3.5-5.1 [facility] Comment on above: Performed By: #### C REAT, CBC, BUN, LYTES, LIPID, PP #### [facility] [address] Sodium [Moles/Vol] 141 mmol/L Normal 136-145 [facility] Comment on above: Performed By: #### C REAT, CBC, BUN, LYTES, LIPID, PP #### [facility] [address] Lipid Panelon 01-21-2023 Cholesterol [Mass/Vol] 186 mg/dL Normal 140-200 [facility] Comment on above: Result Comment: Chol less than 200 mg/dl low risk Chol 201-239 mg/dl borderline risk Chol 240 mg/dl and greater high risk Performed By: #### C REAT, CBC, BUN, LYTES, LIPID, PP #### [address] Cholesterol in HDL [Mass/Vol] 46 mg/dL Normal 23-92 [facility] Comment on above: Result Comment: HDL CHOL ATP-III CLASSIFICATION Cardiovascular Risk HDL > or equal to 60 mg/dL LOW HDL < 40 mg/dL HIGH Performed By: #### C REAT, CBC, BUN, LYTES, LIPID, PP #### [address] Cholesterol.total/Cho lesterol in HDL [Mass ratio] 4.0 {ratio} Normal <5.0 [facility] Comment on above: Result Comment: PERF ORMED BY: [place] [address] PATHOLOGIST FAMILY AND CONSUMER EDUCATION TEACHER LYLY RIZO M.D. Performed By: #### C REAT, CBC, BUN, LYTES, LIPID, PP #### [address] LDL Cholesterol,Calculate d 108 mg/dL High 0-100 [facility] Comment on above: Result Comment: LDL ATP III CLASSIFICATION LDL less than 100 mg/dL Optimal LDL 100-129 mg/dL Near or above optimal LDL 130-159 mg/dL Borderline high LDL 160-189 mg/dL High LDL greater than 189 mg/dL Very high Performed By: #### C REAT, CBC, BUN, LYTES, LIPID, PP #### [facility] [address] Triglyceride w/Reflex 161 mg/dL High 0-149 [facility] Comment on above: Result Comment: TRIG ATP III CLASSIFICATION TRIG less than 150 mg/dL Normal TRIG 150-199 mg/dL Borderline high TRIG 200-500 mg/dL High TRIG greater than 500 mg/dL Very high Standard traceable to the Center for Disease Conrtrol and Prevention (CDC) test method. Performed By: #### C REAT, CBC, BUN, LYTES, LIPID, PP #### [facility] [address] VLDL CHOLESTEROL 32 mg/dL Normal [facility] Comment on above: Performed By: #### C REAT, CBC, BUN, LYTES, LIPID, PP #### [facility] [address] Office Visit (Cardiology)on 01-19-2023 Follow-up visit [...] Metabolic Panel; Status:Active - Retrospective Authorization; Requested for:[id number]; Angina pectoris, Dyspnea, Jaw pain Cardiac Catheterization Lab Procedures; Status:Active - Retrospective Authorization; Requested for:[id number]; Benign essential hypertension Start: Losartan Potassium 50 MG Oral Tablet; TAKE 1 TABLET TWICE DAILY Class 1 obesity with body mass index (BMI) of 34.0 to 34.9 in adult Healthy Weight Tips; Status:Complete - Retrospective Authorization; Done: [id number] Some eating tips that can help you lose weight.; Status:Complete - Retrospective Authorization; Done: [id number] Dyspnea IO EKG Electrocardiogram- 12 Lead; Status:Complete; Done: [id number] Hyperlipidemia Start: Atorvastatin Calcium 40 MG Oral Tablet (Lipitor); TAKE 1 TABLET AT BEDTIME ALT - Alanine Aminotransferase, Serum; Status:Active - Retrospective Authorization; Requested for:[id number]; AST; Status:Active - Retrospective Authorization; Requested for:[id number]; Lipid Panel; Status:Active - Retrospective Authorization; Requested for:[id number]; SocHx: Former smoker Tobacco Use Screening; Status:Complete; Done: [id number] Unlinked Stop: Atorvastatin Calcium 20 MG Oral [...] her progressive (more content not included)... Normal [place] Tobacco Screening.on 023 Adult depression screening assessment No [facility] 250 DO Work Phone: Tobacco use status [facility] b) No [facility] 250 DO Work Phone: MICRO OTHER TESTSOrdered By: Ester Hernandez on 07-20-2022 Fecal WBC Lactoferrin Negative (07/20/22 9:30 AM) Normal Negative [facility] [place] MG MAMM SCREEN 3D THOMPSON CADon 07-12-2022 MG MAMM SCREEN 3D THOMPSON CAD Patient: YAA DUGGANHeriberto Exam Date: 07/12/2022 : 1950 Gender:F Ordering : DR RANJANA PRADO M.D. Admission #: [id number] Family : Order #: [id number] CLICK HERE TO VIEW EXAM RADIOLOGY REPORT [...] radiation, chemotherapy. Family Cancers None LOCATION: [facility] BREAST COMPOSITION: Almost entirely fatty. FINDINGS: DIAGNOSTIC [...] LUMP SHOULD BE BIOPSIED. Dictated by: Kati Spencer MD on 07/12/2022 at 11:06 Approved by: Kati Spencer MD on 07/12/2022 at 11:07 Normal [facility] CBC AUTO DIFFon 07-05-2022 BASO # 0.0 103/ul Normal 0.0-0.1 [facility] Comment on above: Performed By: #### C BC #### [facility] [address] [place] [address] Dr. Vitaliy Varela Basophils/100 WBC (Bld) 0.4 % Normal 0.2-2.0 [facility] Comment on above: Performed By: #### C BC #### [facility] [address] [place] [address] Dr. Vitaliy Varela EO # 0.1 103/ul Normal 0.0-0.7 [facility] Comment on above: Performed By: #### C BC #### [facility] [address] [place] [address] Dr. Vitaliy Varela Eosinophils/100 WBC (Bld) 1.6 % Normal 0.9-7.0 [facility] Comment on above: Performed By: #### C BC #### [facility] [address] [place] [address] Dr. Vitaliy Varela Erythrocyte distribution width (RBC) [Ratio] 13.7 % Normal 11.0-15.0 [facility] Comment on above: Performed By: #### C BC #### [facility] [address] [place] [address] Dr. Vitaliy Varela Hematocrit (Bld) [Volume fraction] 43.8 % Normal 36.0-48.0 [facility] Comment on above: Performed By: #### C BC #### [facility] [address] [place] [address] Dr. Vitaliy Varela Hemoglobin (Bld) [Mass/Vol] 14.5 g/dL Normal 12.0-16.0 [facility] Comment on above: Performed By: #### C BC #### [facility] [address] [place] [address] Dr. Vitaliy Varela IG # 0.01 10e3/ul Normal 0.00-0.03 [facility] Comment on above: Performed By: #### C BC #### [facility] [address] [place] [address] Dr. Vitaliy Varela IG % 0.2 % Normal 0.0-0.5 [facility] Comment on above: Performed By: #### C BC #### [facility] [address] [place] [address] Dr. Vitaliy Varela LYMPH # 1.7 103/ul Normal 1.2-3.8 [facility] Comment on above: Performed By: #### C BC #### [facility] [address] [place] [address] Dr. Vitaliy Varela Lymphocytes/100 WBC (Bld) 31.3 % Normal 20.5-60.0 [facility] Comment on above: Performed By: #### C BC #### [facility] [address] [place] [address] Dr. Vitaliy Varela MANUAL DIFF REQ NO Normal [facility] Comment on above: Performed By: #### C BC #### [facility] [address] [place] [address] Dr. Vitaliy Varela MCH (RBC) [Entitic mass] 27.8 pg Normal 26.7-34.0 [facility] Comment on above: Performed By: #### C BC #### [facility] [address] [place] [address] Dr. Vitaliy Varela MCHC (RBC) [Mass/Vol] 33.1 g/dL Normal 29.9-35.2 [facility] Comment on above: Performed By: #### C BC #### [facility] [address] [place] [address] Dr. Vitaliy Varela MCV (RBC) [Entitic vol] 84.1 fL Normal 81.0-99.0 [facility] Comment on above: Performed By: #### C BC #### [facility] [address] [place] [address] Dr. Vitaliy Varela MONO # 0.5 103/ul Normal 0.3-0.8 [facility] Comment on above: Performed By: #### C BC #### [facility] [address] [place] [address] Dr. Vitaliy Varela Monocytes/100 WBC (Bld) 9.3 % Normal 1.7-12.0 [facility] Comment on above: Performed By: #### C BC #### [facility] [address] [place] [address] Dr. Vitaliy Varela NEUT # 3.2 103/ul Normal 1.4-6.5 [facility] Comment on above: Performed By: #### C BC #### [facility] [address] [place] [address] Dr. Vitaliy Varela Neutrophils/100 WBC (Bld) 57.2 % Normal 43.0-75.0 [facility] Comment on above: Performed By: #### C BC #### [facility] [address] [place] [address] Dr. Vitaliy Varela Platelet mean volume (Bld) [Entitic vol] 9.2 fL Critically low 9.5-13.5 [facility] Comment on above: Performed By: #### C BC #### [facility] [address] [place] [address] Dr. Vitaliy Varela PLT 227 103/ul Normal 150-450 [facility] Comment on above: Performed By: #### C BC #### [facility] [address] [place] [address] Dr. Vitaliy Varela RBC 5.21 106/ul Normal 4.20-5.40 [facility] Comment on above: Performed By: #### C BC #### [facility] [address] [place] [address] Dr. Vitaliy Varela WBC 5.5 103/ul Normal 4.0-11.0 [facility] Comment on above: Performed By: #### C BC #### [facility] [address] [place] [address] Dr. Vitaliy Varela FREE T4on 07-05-2022 Free T4 [Mass/Vol] 1.44 ng/dL Normal 0.76-1.46 [facility] Comment on above: Performed By: #### F T4 #### [facility] [address] [place] [address] Dr. Vitaliy Varela GLYCOHEMOGLOBIN A1Con 2022 ADA RECOMMENDATION SEE BELOW Normal [facility] Comment on above: Result Comment: ADA RECOMMENDED LIMIT 4.0 - 6.0 ADA THERAPEUTIC TARGET < 7.0 ACTION SUGGESTED > 7.0 Performed By: #### A 1C #### [facility] [address] [place] [address] Dr. Vitaliy Varela Glucose [Mass/Vol] 120 mg/dL Normal [facility] Comment on above: Performed By: #### A 1C #### [facility] [address] [place] [address] Dr. Vitaliy Varela HbA1c (Bld) [Mass fraction] 5.8 % Normal 4.5-6.2 [facility] Comment on above: Performed By: #### A 1C #### [facility] [address] [place] [address] Dr. Vitaliy Varela LIPID PROFILEon 07-05-2022 CHOL-HDL RATIO NORM SEE BELOW Normal [facility] Comment on above: Result Comment: 3.3 - 4.4 LOW RISK 4.4 - 7.1 AVERAGE RISK 7.1 - 11.0 MODERATE RISK >11.0 HIGH RISK Performed By: #### C MP, TSH, LIPID #### [facility] [address] [address] [address] Vitaliy Varela Cholesterol [Mass/Vol] 287 mg/dL Critically high <=200 [facility] Comment on above: Performed By: #### C MP, TSH, LIPID #### [facility] [address] [address] [address] Vitaliy Varela Cholesterol in HDL [Mass/Vol] 50 mg/dL Normal 40-60 [facility] Comment on above: Performed By: #### C MP, TSH, LIPID #### [facility] [address] [address] [address] Vitaliy Varela Cholesterol in LDL [Mass/Vol] 200.4 mg/dL Normal [facility] Comment on above: Performed By: #### C MP, TSH, LIPID #### [facility] [address] [address] [address] Vitaliy Varela Cholesterol.total/Cho lesterol in HDL [Mass ratio] 5.7 {ratio} Normal [facility] Comment on above: Performed By: #### C MP, TSH, LIPID #### [facility] [address] [address] [address] Vitaliy Varela HDL NORMAL > or = 60 mg/dl - LO W CARDIOVASCULAR RISK <40 mg/dl - HIGH CARDIOVASCULAR RISK Normal [facility] Comment on above: Performed By: #### C MP, TSH, LIPID #### [facility] [address] [address] [address] Vitaliy Varela LDL CALC NORMAL SEE BELOW Normal [facility] Comment on above: Result Comment: <100 mg/dl OPTIMAL 100 - 129 mg/dl NEAR OR ABOVE OPTIMAL 130 - 159 mg/dl BORDERLINE HIGH 160 - 189 mg/dl HIGH >190 mg/dl VERY HIGH Performed By: #### C MP, TSH, LIPID #### [facility] [address] [address] [address] Vitaliy Varela Triglyceride [Mass/Vol] 183 mg/dL Critically high <=150 [facility] Comment on above: Performed By: #### C MP, TSH, LIPID #### [facility] [address] [place], [place] [address] Dr. Vitaliy Varela VLDL CALC 36.6 mg/dL Normal [facility] Comment on above: Performed By: #### C MP, TSH, LIPID #### [facility] [address] [address] [address] Vitaliy Varela PROF 14(COMP METB)on 023 Albumin [Mass/Vol] 3.9 g/dL Normal 3.4-5.0 [facility] Comment on above: Performed By: #### C MP, TSH, LIPID ####[facility] [address] [id number] Varela Albumin/Globulin [Mass ratio] 1.1 {ratio} Normal [facility] Comment on above: Performed By: #### C MP, TSH, LIPID ####[facility] [address] [id number]. Vitaliy Varela ALP [Catalytic activity/Vol] 85 U/L Normal 46-116 [facility] Comment on above: Performed By: #### C MP, TSH, LIPID ####[facility] [address] [id number]. Vitaliy Varela ALT [Catalytic activity/Vol] 38 U/L Normal 14-59 [facility] Comment on above: Performed By: #### C MP, TSH, LIPID ####[facility] [address] [id number] Varela Anion gap [Moles/Vol] 13.1 mmol/L Normal [facility] Comment on above: Performed By: #### C MP, TSH, LIPID ####[facility] [address] [id number]. Vitaliy Varela AST [Catalytic activity/Vol] 32 U/L Normal 15-37 [facility] Comment on above: Performed By: #### C MP, TSH, LIPID ####[facility] [address] [id number] Varela Bilirubin [Mass/Vol] 0.8 mg/dL Normal 0.2-1.0 [facility] Comment on above: Performed By: #### C MP, TSH, LIPID ####[facility] [address] [address]Dr. Vitaliy Varela Calcium [Mass/Vol] 8.6 mg/dL Normal 8.5-10.1 [facility] Comment on above: Performed By: #### C MP, TSH, LIPID ####[facility] [address] [address]Dr. Vitaliy Varela Chloride [Moles/Vol] 103 mmol/L Normal 98-107 [facility] Comment on above: Performed By: #### C MP, TSH, LIPID ####[facility] [address] [address]Dr. Vitaliy Varela CO2 [Moles/Vol] 26.6 mmol/L Normal 21.0-32.0 [facility] Comment on above: Performed By: #### C MP, TSH, LIPID ####[facility] [address] [place], [place] [address]Dr. Vitaliy Varela Creatinine [Mass/Vol] 0.72 mg/dL Normal 0.55-1.02 [facility] Comment on above: Performed By: #### C MP, TSH, LIPID ####[facility] [address] [address]Dr. Vitaliy Varela EGFR-AF [place] >60 Normal >=60 [facility] Comment on above: Performed By: #### C MP, TSH, LIPID ####[facility] [address] [address]Dr. Vitaliy Varela EGFR-NON AF [place] >60 Normal >=60 [facility] Comment on above: Performed By: #### C MP, TSH, LIPID ####[facility] [address] [address]Dr. Vitaliy Varela Globulin (S) [Mass/Vol] 3.7 g/dL Normal [facility] Comment on above: Performed By: #### C MP, TSH, LIPID ####[facility] [address] [place], [place] [address]Dr. Vitaliy Varela Glucose [Mass/Vol] 108 mg/dL Critically high 74-106 [facility] Comment on above: Performed By: #### C MP, TSH, LIPID ####[facility] [address] [address]Dr. Vitaliy Varela Potassium [Moles/Vol] 3.7 mmol/L Normal 3.5-5.1 [facility] Comment on above: Performed By: #### C MP, TSH, LIPID ####[facility] [address] [address]Dr. Vitaliy Varela Protein [Mass/Vol] 7.6 g/dL Normal 6.4-8.2 [facility] Comment on above: Performed By: #### C MP, TSH, LIPID ####[facility] [address] [address]Dr. Vitaliy Varela Sodium [Moles/Vol] 139 mmol/L Normal 136-145 [facility] Comment on above: Performed By: #### C MP, TSH, LIPID ####[facility] [address] [address]Dr. Vitaliy Varela Urea nitrogen [Mass/Vol] 13.0 mg/dL Normal 7.0-18.0 [facility] Comment on above: Performed By: #### C MP, TSH, LIPID ####[facility] [address] [address]Dr. Vitaliy Varela Urea nitrogen/Creatinine [Mass ratio] 18.1 mg/mg Normal [facility] Comment on above: Performed By: #### C MP, TSH, LIPID ####[facility] [address] [address]Dr. Vitaliy Varela TSHon 07-05-2022 TSH 0.570 uIU/mL Normal 0.358-3.740 [facility] Comment on above: Performed By: #### C MP, TSH, LIPID ####[facility] [address] [address]Dr. Vitaliy Varela CBC AUTO DIFFon 09-21-2021 BASO # 0.0 103/ul Normal 0.0-0.1 [facility] Comment on above: Performed By: #### C BC #### [facility] [address] [address] [address] Vitaliy Varela Basophils/100 WBC (Bld) 0.4 % Normal 0.2-2.0 [facility] Comment on above: Performed By: #### C BC #### [facility] [address] [address] [address] Vitaliy Varela EO # 0.1 103/ul Normal 0.0-0.7 [facility] Comment on above: Performed By: #### C BC #### [facility] [address] [address] [address] Vitaliy Varela Eosinophils/100 WBC (Bld) 2.6 % Normal 0.9-7.0 [facility] Comment on above: Performed By: #### C BC #### [facility] [address] [place] [address] Dr. Vitaliy Varela Erythrocyte distribution width (RBC) [Ratio] 14.2 % Normal 11.0-15.0 [facility] Comment on above: Performed By: #### C BC #### [facility] [address] [place] [address] Dr. Vitaliy Varela Hematocrit (Bld) [Volume fraction] 41.0 % Normal 36.0-48.0 [facility] Comment on above: Performed By: #### C BC #### [facility] [address] [place] [address] Dr. Vitaliy Varela Hemoglobin (Bld) [Mass/Vol] 13.1 g/dL Normal 12.0-16.0 [facility] Comment on above: Performed By: #### C BC #### [facility] [address] [address] [address] Vitaliy Varela IG # 0.03 10e3/ul Normal 0.00-0.03 [facility] Comment on above: Performed By: #### C BC #### [facility] [address] [address] [address] Vitaliy Varela IG % 0.6 % Critically high 0.0-0.5 [facility] Comment on above: Performed By: #### C BC #### [facility] [address] [place] [address] Dr. Vitaliy Varela LYMPH # 1.6 103/ul Normal 1.2-3.8 [facility] Comment on above: Performed By: #### C BC #### [facility] [address] [place] [address] Dr. Vitaliy Varela Lymphocytes/100 WBC (Bld) 29.8 % Normal 20.5-60.0 [facility] Comment on above: Performed By: #### C BC #### [facility] [address] [place] [address] Dr. Vitaliy Varela MANUAL DIFF REQ NO Normal [facility] Comment on above: Performed By: #### C BC #### [facility] [address] [place] [address] Dr. Vitaliy Varela MCH (RBC) [Entitic mass] 27.9 pg Normal 26.7-34.0 [facility] Comment on above: Performed By: #### C BC #### [facility] [address] [place] [address] Dr. Vitaliy Varela MCHC (RBC) [Mass/Vol] 32.0 g/dL Normal 29.9-35.2 [facility] Comment on above: Performed By: #### C BC #### [facility] [address] [place] [address] Dr. Vitaliy Varela MCV (RBC) [Entitic vol] 87.2 fL Normal 81.0-99.0 [facility] Comment on above: Performed By: #### C BC #### [facility] [address] [place] [address] Dr. Vitaliy Varela MONO # 0.6 103/ul Normal 0.3-0.8 [facility] Comment on above: Performed By: #### C BC #### [facility] [address] [place] [address] Dr. Vitaliy Varela Monocytes/100 WBC (Bld) 11.0 % Normal 1.7-12.0 [facility] Comment on above: Performed By: #### C BC #### [facility] [address] [place] [address] Dr. Vitaliy Varela NEUT # 3.0 103/ul Normal 1.4-6.5 [facility] Comment on above: Performed By: #### C BC #### [facility] [address] [place] [address] Dr. Vitaliy Varela Neutrophils/100 WBC (Bld) 55.6 % Normal 43.0-75.0 [facility] Comment on above: Performed By: #### C BC #### [facility] [address] [place] [address] Dr. Vitaliy Varela Platelet mean volume (Bld) [Entitic vol] 9.2 fL Critically low 9.5-13.5 [facility] Comment on above: Performed By: #### C BC #### [facility] [address] [place] [address] Dr. Vitaliy Varela PLT 230 103/ul Normal 150-450 [facility] Comment on above: Performed By: #### C BC #### [facility] [address] [place] [address] Dr. Vitaliy Varela RBC 4.70 106/ul Normal 4.20-5.40 [facility] Comment on above: Performed By: #### C BC #### [facility] [address] [place] [address] Dr. Vitaliy Varela WBC 5.4 103/ul Normal 4.0-11.0 [facility] Comment on above: Performed By: #### C BC #### [facility] [address] [place] [address] Dr. Vitaliy Varela FREE T4on 09-21-2021 Free T4 [Mass/Vol] 1.18 ng/dL Normal 0.76-1.46 [facility] Comment on above: Performed By: #### F T4 #### [facility] [address] [place] [address] Dr. Vitaliy Varela LIPID PROFILEon 09-21-2021 CHOL-HDL RATIO NORM SEE BELOW Normal [facility] Comment on above: Result Comment: 3.3 - 4.4 LOW RISK 4.4 - 7.1 AVERAGE RISK 7.1 - 11.0 MODERATE RISK >11.0 HIGH RISK Performed By: #### L IPID, CMP, TSH #### [facility] [address] [address] [address] Vitaliy Varela Cholesterol [Mass/Vol] 278 mg/dL Critically high <=200 [facility] Comment on above: Performed By: #### L IPID, CMP, TSH #### [facility] [address] [address] [address] Vitaliy Varela Cholesterol in HDL [Mass/Vol] 44 mg/dL Normal 40-60 [facility] Comment on above: Performed By: #### L IPID CMP, TSH #### [facility] [address] [address] [address] Vitaliy Varela Cholesterol in LDL [Mass/Vol] 181.8 mg/dL Normal [facility] Comment on above: Performed By: #### L IPID CMP, TSH #### [facility] [address] [address] [address] Vitaliy Varela Cholesterol.total/Cho lesterol in HDL [Mass ratio] 6.3 {ratio} Normal [facility] Comment on above: Performed By: #### L IPID, CMP, TSH #### [facility] [address] [place] [address] Dr. Vitaliy Varela HDL NORMAL > or = 60 mg/dl - LO W CARDIOVASCULAR RISK <40 mg/dl - HIGH CARDIOVASCULAR RISK Normal [facility] Comment on above: Performed By: #### L IPID, CMP, TSH #### [facility] [address] [address] [address] Vitaliy Varela LDL CALC NORMAL SEE BELOW Normal [facility] Comment on above: Result Comment: <100 mg/dl OPTIMAL 100 - 129 mg/dl NEAR OR ABOVE OPTIMAL 130 - 159 mg/dl BORDERLINE HIGH 160 - 189 mg/dl HIGH >190 mg/dl VERY HIGH Performed By: #### L IPID, CMP, TSH #### [facility] [address] [address] [address] Vitaliy Varela Triglyceride [Mass/Vol] 261 mg/dL Critically high <=150 [facility] Comment on above: Performed By: #### L IPID, CMP, TSH #### [facility] [address] [place] [address] Dr. Vitaliy Varela VLDL CALC 52.2 mg/dL Normal [facility] Comment on above: Performed By: #### L IPID, CMP, TSH #### [facility] [address] [place] [address] Dr. Vitaliy Varela PROF 14(COMP METB)on 022 Albumin [Mass/Vol] 3.7 g/dL Normal 3.4-5.0 [facility] Comment on above: Performed By: #### L IPID, CMP, TSH #### [facility] [address] [place] [address] Dr. Vitaliy Varela Albumin/Globulin [Mass ratio] 0.9 {ratio} Normal [facility] Comment on above: Performed By: #### L IPID, CMP, TSH #### [facility] [address] [place] [address] Dr. Vitaliy Varela ALP [Catalytic activity/Vol] 90 U/L Normal 46-116 [facility] Comment on above: Performed By: #### L IPID, CMP, TSH #### [facility] [address] [place] [address] Dr. Vitaliy Varela ALT [Catalytic activity/Vol] 35 U/L Normal 14-59 [facility] Comment on above: Performed By: #### L IPID, CMP, TSH #### [facility] [facility] [address] [place] [address] Dr. Vitaliy Varela Anion gap [Moles/Vol] 12.6 mmol/L Normal [facility] Comment on above: Performed By: #### L IPID, CMP, TSH #### [facility] [address] [place] [address] Dr. Vitaliy Varela AST [Catalytic activity/Vol] 19 U/L Normal 15-37 [facility] Comment on above: Performed By: #### L IPID, CMP, TSH #### [facility] [address] [place] [address] Dr. Vitaliy Varela Bilirubin [Mass/Vol] 0.4 mg/dL Normal 0.2-1.0 [facility] Comment on above: Performed By: #### L IPID, CMP, TSH #### [facility] [address] [place] [address] Dr. Vitaliy Varela Calcium [Mass/Vol] 8.9 mg/dL Normal 8.5-10.1 [facility] Comment on above: Performed By: #### L IPID, CMP, TSH #### [facility] [address] [address] [address] Vitaliy Varela Chloride [Moles/Vol] 104 mmol/L Normal 98-107 [facility] Comment on above: Performed By: #### L IPID, CMP, TSH #### [facility] [address] [place] [address] Dr. Vitaliy Varela CO2 [Moles/Vol] 26.6 mmol/L Normal 21.0-32.0 [facility] Comment on above: Performed By: #### L IPID, CMP, TSH #### [facility] [address] [place] [address] Dr. Vitaliy Varela Creatinine [Mass/Vol] 0.83 mg/dL Normal 0.55-1.02 [facility] Comment on above: Performed By: #### L IPID, CMP, TSH #### [facility] [address] [place] [address] Dr. Vitaliy Varela EGFR-AF NORTHERN IRISH >60 Normal >=60 [facility] Comment on above: Performed By: #### L IPID, CMP, TSH #### [facility] [address] [place] [address] Dr. Vitaliy Varela EGFR-NON AF NORTHER[place] IRISH >60 Normal >=60 [facility] Comment on above: Performed By: #### L IPID, CMP, TSH #### [facility] [address] [place] [address] Dr. Vitaliy Varela Globulin (S) [Mass/Vol] 4.0 g/dL Normal [facility] Comment on above: Performed By: #### L IPID, CMP, TSH #### [facility] [address] [address] [address] Vitaliy Varela Glucose [Mass/Vol] 113 mg/dL Critically high 74-106 [facility] Comment on above: Performed By: #### L IPID, CMP, TSH #### [facility] [address] [address] [address] Vitaliy Varela Potassium [Moles/Vol] 4.2 mmol/L Normal 3.5-5.1 [facility] Comment on above: Performed By: #### L IPID, CMP, TSH #### [facility] [address] [address] [address] Vitaliy Varela Protein [Mass/Vol] 7.7 g/dL Normal 6.4-8.2 [facility] Comment on above: Performed By: #### L IPID, CMP, TSH #### [facility] [address] [address] [address] Vitaliy Varela Sodium [Moles/Vol] 139 mmol/L Normal 136-145 [facility] Comment on above: Performed By: #### L IPID, CMP, TSH #### [facility] [address] [address] [address] Vitaliy Varela Urea nitrogen [Mass/Vol] 19.0 mg/dL Critically high 7.0-18.0 [facility] Comment on above: Performed By: #### L IPID, CMP, TSH #### [facility] [address] [address] [address] Vitaliy Varela Urea nitrogen/Creatinine [Mass ratio] 22.9 mg/mg Normal [facility] Comment on above: Performed By: #### L IPID, CMP, TSH #### [facility] [address] [address] [address] Vitaliy Varela TSHon 09-21-2021 TSH 0.108 uIU/mL Critically low 0.358-3.740 [facility] Comment on above: Performed By: #### L IPID, CMP, TSH #### [facility] [address] [address] [address] Vitaliy Varela TSH RANGE SEE BELOW Normal [facility] Comment on above: Result Comment: <0.3 4 UIU/ml HYPERTHYROID 0.34-5.60 UIU/ml EUTHYROID >5.60 UIU/ml HYPOTHYROID Performed By: #### L IPID, CMP, TSH #### [facility] [address] [address] [address] Vitaliy Varela Vital Signs Date Time Vital Sign Value Performing Clinician Facility 11-19-2024 11:[id number] Body height 163.83 cm Ranjana Prado MD Work Phone: [facility] 11-19-2024 11:22-0400 Body mass index (BMI) [Ratio] 34.1 kg/m2 Ranjana Prado MD Work Phone: [facility] 11-19-2024 11:22-0400 Body weight 91.62 kg Ranjana Prado MD Work Phone: [facility] 11-19-2024 11:22-0400 Diastolic blood pressure 74 mm[Hg] Ranjana Prado MD Work Phone: [facility] 11-19-2024 11:22-0400 Heart rate 80 /min Ranjana Prado MD Work Phone: [facility] 11-19-2024 11:22-0400 Respiratory rate 12 /min Ranjana Prado MD Work Phone: [facility] 11-19-2024 11:22-0400 SaO2% (BldA) [Mass fraction] 98 % Ranjana Prado MD Work Phone: [facility] 11-19-2024 11:22-0400 Systolic blood pressure 117 mm[Hg] Ranjana Prado MD Work Phone: [facility] 04-09-2024 10:09-0500 Blood Pressure Location Arvind Berg [facility] 04-09-2024 10:09-0500 Diastolic blood pressure 82 mm[Hg] Arvind Berg [facility] 04-09-2024 10:09-0500 Heart rate 67 /min Arvind [facility]iderm[facility] 04-09-2024 10:09-0500 Systolic blood pressure 137 mm[Hg] Arvind Schneidermini [facility] 05-05-2023 09:00-0500 Body height 163.83 cm Ranjana Prado Other [employer] Other 05-05-2023 09:00-0500 Body mass index (BMI) [Ratio] 36.5 kg/m2 Ranjana Prado Other [employer] Other 05-05-2023 09:00-0500 Body temperature 97.7 [degF] Ranjana Prado Other [employer] Other 05-05-2023 09:00-0500 Body weight 97.98 kg Ranjana Prado Other [employer] Other 05-05-2023 09:00-0500 Diastolic blood pressure 70 mm[Hg] Ranjana Prado Other [employer] Other 05-05-2023 09:00-0500 SaO2% (BldA) [Mass fraction] 95 % Ranjana Prado Other [employer] Other 05-05-2023 09:00-0500 Systolic blood pressure 122 mm[Hg] Ranjana Prado Other [employer] Other 04-08-2023 10:07-0500 Blood Pressure Location Ashely Worthy [facility] 04-08-2023 10:07-0500 Body temperature 96.8 [degF] Ashely [facility]orthy [facility] 04-08-2023 10:07-0500 Diastolic blood pressure 73 mm[Hg] Ashely [facility]orthy [facility] 04-08-2023 10:07-0500 Heart rate 64 /min Ashely [facility] 04-08-2023 10:07-0500 Systolic blood pressure 115 mm[Hg] Ashely Worthy [facility] 03-25-2023 13:06-0500 Body height 167.6 cm Debbie Nagy MD Work Phone: [facility] 03-25-2023 13:06-0500 Body mass index (BMI) [Ratio] 35.35 kg/m2 Debbie Nagy MD Work Phone: [facility] 03-25-2023 13:06-0500 Body weight 99.34 kg Debbie Nagy MD Work Phone: [facility] 03-25-2023 13:06-0500 Diastolic blood pressure 74 mm[Hg] Debbie Nagy MD Work Phone: [facility] 03-25-2023 13:06-0500 Heart rate 76 /min Debbie Nagy MD Work Phone: [facility] 03-25-2023 13:06-0500 Systolic blood pressure 128 mm[Hg] Debbie Nagy MD Work Phone: [facility] 03-04-2023 15:30-0400 Body height 163.83 cm Ranjana Prado Other [employer] Other 03-04-2023 15:30-0400 Body mass index (BMI) [Ratio] 36.84 kg/m2 Ranjana Prado Other [employer] Other 03-04-2023 15:30-0400 Body weight 98.88 kg Ranjana Prado Other [employer] Other 03-04-2023 15:30-0400 Diastolic blood pressure 74 mm[Hg] Ranjana Prado Other [employer] Other 03-04-2023 15:30-0400 SaO2% (BldA) [Mass fraction] 93 % Ranjana Prado Other [employer] Other 03-04-2023 15:30-0400 Systolic blood pressure 145 mm[Hg] Ranjana Prado Other [employer] Other 01-19-2023 10:01-0400 Diastolic blood pressure 80 mm[Hg] Ranjana Prado Work Phone: [employer] DO Work Phone: 01-19-2023 10:01-0400 Systolic blood pressure 158 mm[Hg] Ranjana Prado Work Phone: [employer] DO Work Phone: 01-19-2023 09:55-0400 Body height 167.64 cm Ranjana Prado Work Phone: [employer] DO Work Phone: 01-19-2023 09:55-0400 Body mass index (BMI) [Ratio] 34.54 kg/m2 Ranjana Prado Work Phone: [employer] DO Work Phone: 01-19-2023 09:55-0400 Body surface area Derived from formula 2.06 m2 Ranjana Prado Work Phone: [employer] DO Work Phone: 01-19-2023 09:55-0400 Body weight 97.07 kg Ranjana Prado Work Phone: [facility] [employer] DO Work Phone: 01-19-2023 09:55-0400 Diastolic blood pressure 84 mm[Hg] Ranjana Prado Work Phone: [facility] [employer] DO Work Phone: 01-19-2023 09:55-0400 Heart rate 58 /min Ranjana Prado Work Phone: [facility] [employer] DO Work Phone: 01-19-2023 09:55-0400 Systolic blood pressure 160 mm[Hg] Ranjana Prado Work Phone: [facility] [employer] DO Work Phone: 01-17-2023 15:00-0400 Body height 163.83 cm Ranjana Prado Other [employer] Other 01-17-2023 15:00-0400 Body mass index (BMI) [Ratio] 35.96 kg/m2 Ranjana Prado Other [employer] Other 01-17-2023 15:00-0400 Body weight 96.53 kg Ranjana Prado Other [employer] Other 01-17-2023 15:00-0400 Diastolic blood pressure 89 mm[Hg] Ranjana Prado Other [employer] Other 01-17-2023 15:00-0400 Respiratory rate 12 /min Ranjana Prado Other [employer] Other 01-17-2023 15:00-0400 Systolic blood pressure 143 mm[Hg] Ranjana Prado Other [employer] Other 01-07-2023 13:13-0400 Diastolic blood pressure 99 mm[Hg] Ashely [facility]met[facility] 01-07-2023 13:13-0400 Mean blood pressure 128 mm[Hg] [facility]a [facility] 01-07-2023 13:13-0400 Systolic blood pressure 186 mm[Hg] Ashely [facility] 01-07-2023 13:05-0400 Blood Pressure Location [facility] 01-07-2023 13:05-0400 Body temperature 97.34 [degF] Ashely [facility]z [facility] 01-07-2023 13:05-0400 Diastolic blood pressure 92 mm[Hg] Ashely [facility] 01-07-2023 13:05-0400 Heart rate 63 /min Ashely W[facility] 01-07-2023 13:05-0400 Systolic blood pressure 150 mm[Hg] Ashely [facility] 01-06-2023 10:00-0400 Body height 163.83 cm Ranjana Prado Other [employer] Other 01-06-2023 10:00-0400 Body mass index (BMI) [Ratio] 36.94 kg/m2 Ranjana Prado Other [employer] Other 01-06-2023 10:00-0400 Body temperature 98 [degF] Ranjana Prado Other [employer] Other 01-06-2023 10:00-0400 Body weight 99.16 kg Ranjana Prado Other [employer] Other 01-06-2023 10:00-0400 Diastolic blood pressure 82 mm[Hg] Ranjana Prado Other [employer] Other 01-06-2023 10:00-0400 SaO2% (BldA) [Mass fraction] 97 % Ranjana Prado Other [employer] Other 01-06-2023 10:00-0400 Systolic blood pressure 184 mm[Hg] Ranjana Prado Other [employer] Other 12-03-2022 13:35-0400 Diastolic blood pressure 74 mm[Hg] As[facility]ly [facility] 12-03-2022 13:35-0400 Mean blood pressure 105 mm[Hg] Ashely [facility] 12-03-2022 13:35-0400 Systolic blood pressure 168 mm[Hg] Ashely [facility] 12-03-2022 13:25-0400 Blood Pressure Location Ashely Deacno [facility] 12-03-2022 13:25-0400 Body temperature 98.06 [degF] Ashely [facility] 12-03-2022 13:25-0400 Diastolic blood pressure 90 mm[Hg] Ashely [facility] 12-03-2022 13:25-0400 Heart rate 62 /min As[facility]ly [facility] 12-03-2022 13:25-0400 Respiratory rate 16 /min Ashely [facility] 12-03-2022 13:25-0400 SaO2% (BldA) [Mass fraction] 97 % [facility] 12-03-2022 13:25-0400 Systolic blood pressure 168 mm[Hg] Ashely [facility] 09-03-2022 13:33-0400 Diastolic blood pressure 84 mm[Hg] Ashely [facility] 09-03-2022 13:33-0400 Mean blood pressure 103 mm[Hg] Ashely [facility] 09-03-2022 13:33-0400 Systolic blood pressure 142 mm[Hg] Ashely [facility] 09-03-2022 13:28-0400 Blood Pressure Location Ashely [facility] 09-03-2022 13:28-0400 Body temperature 97.16 [degF] Ashely [facility] 09-03-2022 13:28-0400 Diastolic blood pressure 83 mm[Hg] Ashely [facility] 09-03-2022 13:28-0400 Heart rate 67 /min Ashely [facility] 09-03-2022 13:28-0400 Systolic blood pressure 163 mm[Hg] Ashely [facility] 07-15-2022 13:08-0500 Diastolic blood pressure 108 mm[Hg] Dinorah MORRIS [facility] 07-15-2022 13:08-0500 Mean blood pressure 136 mm[Hg] Copeland SALAM [facility] 07-15-2022 13:08-0500 Systolic blood pressure 192 mm[Hg] Copeland SALAM [facility] 07-15-2022 13:06-0500 Blood Pressure Location Copeland SALAM [facility] 07-15-2022 13:06-0500 Diastolic blood pressure 102 mm[Hg] Copeland SAL[facility] 07-15-2022 13:06-0500 Heart rate 78 /min [facility] SAL[facility] 07-15-2022 13:06-0500 Respiratory rate 16 /min [facility] SAL[facility] 07-15-2022 13:06-0500 Systolic blood pressure 174 mm[Hg] Copeland SAL[facility] 07-05-2022 10:45-0500 Body height 163.83 cm Ranjana Prado Other [employer] Other 07-05-2022 10:45-0500 Body mass index (BMI) [Ratio] 37.18 kg/m2 Ranjana Prado Other [employer] Other 07-05-2022 10:45-0500 Body weight 99.79 kg Ranjana Prado Other [employer] Other 07-05-2022 10:45-0500 Diastolic blood pressure 86 mm[Hg] Ranjana Prado Other [employer] Other 07-05-2022 10:45-0500 SaO2% (BldA) [Mass fraction] 97 % Ranjana Prado Other [employer] Other 07-05-2022 10:45-0500 Systolic blood pressure 152 mm[Hg] Ranjana Prado Other [employer] Other Encounters Encounter Date Encounter Type Care Provider Facility Start: 11-19-2024 End: 11-19-2024 ambulatory Ranjana Prado MD Work Phone: [facility] Work Phone: Start: 11-19-2024 End: 11-19-2024 Patient encounter procedure Ranjana Prado MD -[facility] Work Phone: Start: 05-01-2024 End: 05-01-2024 ambulatory Josie Lucas [...] CI PT Start: 04-09-2024 End: 04-09-2024 ambulatory Samuels Talal Sarmini Facility:[facility] Start: 04-09-2024 End: 04-09-2024 Patient encounter procedure Samuels Talal Jenniemini [facility] Start: 12-20-2023 End: 12-20-2023 Evaluation and management of inpatient ANAYELI STEWARD [facility] Start: 12-19-2023 End: 12-19-2023 ambulatory RANJANA PRADO [facility] Start: 08-24-2023 End: 08-24-2023 ambulatory SENG TATTERSALL Not Available Start: 08-22-2023 End: 08-22-2023 ambulatory SENG TATTERSALL Not Available Start: 08-18-2023 End: 08-18-2023 ambulatory SENG TATTERSALL Not Available Start: 08-16-2023 End: 08-16-2023 ambulatory SENG TATTERSALL Not Available Start: 08-09-2023 End: 08-09-2023 ambulatory SENG TATTERSALL Not Available Start: 08-05-2023 End: 08-05-2023 ambulatory Constantine Hilton Facility:[facility] Start: 08-03-2023 End: 08-03-2023 ambulatory SENG TATTERSALL Not Available Start: 08-01-2023 End: 08-01-2023 ambulatory SENG TATTERSALL Not Available Start: 07-27-2023 End: 07-27-2023 ambulatory SENG TATTERSALL Not Available Start: 07-25-2023 End: 07-25-2023 ambulatory JOSIE LUCAS Not Available Start: 07-11-2023 Patient encounter procedure Ranjana Prado MD Work Phone: [facility] Start: 05-11-2023 End: 05-11-2023 ambulatory Ranjana Prado Other [employer] Other Start: 05-11-2023 Telephone encounter Ranjana Prado [facility] Start: 05-05-2023 End: 05-05-2023 ambulatory Ranjana Prado Other [employer] Other Start: 05-05-2023 Office outpatient vi sit 15 minutes Ranjana Prado [facility] Start: 04-08-2023 End: 04-08-2023 Patient encounter procedure Ashely Worthy [facility] Start: 03-25-2023 End: 03-25-2023 ambulatory DEBBIE NAGY [facility] Ambulatory Start: 03-25-2023 End: 03-25-2023 Office outpatient visit 25 minutes Debbie Nagy MD Work Phone: [facility] Comment on above: Essential hypertensi on, benign (Primary Dx); Mixed hyperlipidemia; Atypical chest pain; Class 2 obesity with body mass index (BMI) of 35.0 to 35.9 in adult, unspecified obesity type, unspecified whether serious comorbidity present Start: 03-14-2023 End: 03-14-2023 ambulatory Ranjana Prado Other [employer] Other Start: 03-14-2023 Telephone encounter Ranjana Prado [facility] Start: 03-08-2023 End: 03-08-2023 ambulatory Ranjana Prado Other [employer] Other Start: 03-08-2023 Telephone encounter Ranjana Prado [facility] Start: 03-04-2023 End: 03-04-2023 ambulatory Ranjana Prado Other [employer] Other Start: 03-04-2023 Office outpatient vi sit 15 minutes Ranjana Prado [facility] Start: 01-21-2023 SURGNON, Provider: Debbie Nagy, Status: Pen, Time: 2:00 PM Ranjana Prado Work Phone: [facility] [employer] DO Work Phone: Start: 01-21-2023 End: 01-21-2023 ambulatory Ranjana Prado Facility:[facility] Start: 01-21-[address] Ranjana Prado Facility:[id number] Start: 01-19-2023 Office consultation new/estab patient 80 min Ranjana Prado Work Phone: [facility] DO Work Phone: Start: 01-19-2023 ambulatory Debbie Nagy Facility : Start: 01-18-[address] Ranjana Prado Facili ty:[facility] Start: 01-17-2023 End: 01-17-2023 ambulatory Ranjana Prado Other [employer] Other Start: 01-17-2023 Office outpatient vi sit 15 minutes Ranjana Prado [facility] Start: 01-11-2023 End: 01-11-2023 ambulatory Ranjana Prado Other [employer] Other Start: 01-11-2023 Telephone encounter Ranjana Prado [facility] Start: 01-07-2023 End: 01-07-2023 Patient encounter procedure Ashely Worthy [facility] Start: 01-06-2023 End: 01-06-2023 ambulatory Ranjana Prado Other [employer] Other Start: 01-06-2023 Office outpatient vi sit 15 minutes Ranjana Prado [facility] Start: 12-03-2022 End: 12-03-2022 Patient encounter procedure Ashely Worthy [facility] Start: 09-03-2022 End: 09-03-2022 Patient encounter procedure Ashely Worthy [facility] Start: 08-17-2022 End: 08-17-2022 Lab Drop off Dinorah MORRIS [facility] Start: 07-28-2022 End: 07-28-2022 ambulatory Ranjana Prado Other [employer] Other Start: 07-28-2022 Telephone encounter Ranjana Prado [facility] Start: 07-20-2022 End: 07-20-2022 Lab Drop off Dinorah MORRIS [facility] Start: 07-15-2022 End: 07-15-2022 Patient encounter procedure Copeland SALAM [facility] Start: 07-15-2022 End: 07-15-2022 Patient encounter procedure Copeland SALAM [facility] Start: 07-13-2022 End: 07-13-2022 ambulatory Ranjana Prado Other [employer] Other Start: 07-13-2022 Telephone encounter Ranjana Prado [facility] Start: 07-12-2022 End: 07-13-[address] RANJANA PRADO Facility:[facility] Start: 07-06-2022 End: 07-06-2022 ambulatory Ranjana Prado Other [employer] Other Start: 07-06-2022 Telephone encounter Ranjana Prado [facility] Start: 07-05-2022 Patient encounter procedure Ranjana Prado [facility] Start: 07-05-2022 End: 07-06-[address] RANJANA PRADO Facility:[facility] Start: 09-21-2021 End: 09-22-[address] RANJANA PRADO Facility:[facility] Procedures Date Procedure Procedure Detail Performing Clinician Start: 12-21-2022 Cystourethroscopy Ivis Berg Start: 08-17-2022 Colonoscopy Debbie romero MD Work Phone: Start: 08-17-2022 Colonoscopy Ashely cohen Start: 04-01-2020 Cataract extraction and insertion of intraocular lens [place]AM Cataract surgery Ranjana sanderson Work Phone: Cataract surgery Arvind Sa rmini Hernia repair Ranjana Prado Work Phone: Hernia repair Arvind Astudillo ni Hysterectomy Ranjana Prado Work Phone: Hysterectomy Arvind Schneidermin i Procedure on lymph node Cory Prado Work Phone: Total colonoscopy Ranjana quiroz Work Phone: Comment on above: 2022; Plan of Treatment Date Care Activity Detail Author Start: 08-17-2032 Screening for malign ant neoplasm of colon [facility] Start: 05-08-2024 End: 05-08-2024 ambulatory 05/08/2024 8:30 AM EST Treatment [facility] [address] [place] [address] Josie Lucas, PT [facility] Start: 05-01-2024 End: 05-01-2024 ambulatory 05/01/2024 10:00 AM EST Treatment [facility] [address] [place] [address] Josie Lucas, PT [facility] Start: 04-24-2024 End: 04-24-2024 ambulatory [facility] Comment on above: Vertigo (Primary Dx) Start: 04-19-2024 End: 04-19-2024 ambulatory 04/19/2024 2:30 PM EST Evaluation [facility] [address] [place] [address] Josie Lucas, PT Arrived [facility] Comment on above: Arrived Start: 01-08-2024 Influenza vaccination Influenza Vacc ine (#1) [facility] Start: 01-07-2023 Influenza vaccination Influenza Vacc ine (#1) [facility] Start: 09-09-2022 COVID-19 Vaccine (4 - Pfizer series) COVID-19 Vaccine (4 - Pfizer series) [facility] Start: 10-22-2020 Pneumococcal Vaccine : 65+ Years (2 of 2 - PPSV23 or PCV20) Pneumococcal Vaccine: 65+ Years (2 of 2 - PPSV23 or PCV20) [facility] Start: 02-06-2020 Pneumococcal Vaccine : 65+ Years (2 of 2 - PPSV23 or PCV20) Pneumococcal Vaccine: 65+ Years (2 of 2 - PPSV23 or PCV20) [facility] Start: 04-02-2019 Pneumococcal Vaccine : 65+ Years (2 - PPSV23 or PCV20) Pneumococcal Vaccine: 65+ Years (2 - PPSV23 or PCV20) [facility] Start: 2002 Zoster Vaccines (1 of 2) Zoste r Vaccines (1 of 2) [facility] Start: 1992 Screening for malign ant neoplasm of breast Mammogram [facility] Start: 1974 DTaP/Tdap/Td Vaccine s (1 - Tdap) DTaP/Tdap/Td Vaccines (1 - Tdap) [facility] Start: 1970 Diabetes mellitus screening Diabetes Screening [facility] Start: 1970 Hepatitis C screening Hepatitis C Sc reening [facility] Start: 1952 Lipid panel Lipid Panel [facility] Start: 1952 Medicare Annual Well ness Visit Medicare Annual Wellness Visit (AWV) [facility] Start: 1952 Screening for malign ant neoplasm of colon [facility] Start: 1952 Screening for osteoporosis Bone Density Scan [facility] Start: 1952 Thyroid stimulating hormone measurement TSH Level [facility] Comprehensive metabo lic 2000 panel - Serum or Plasma [facility] MG Breast - bilatera l Screening [facility] US Thyroid gland [facility] XR Chest 2 Views [facility] Immunizations Immunization Date Immunization Notes Care Provider Fa cility 07-15-2022 COVID-19 Pfizer (bivalent) Ranjana Prado Other [facility] 04-17-2021 COVID-19 Vaccine Pfizer - Documentation Purposes Only Ranjana Prado Other [facility] 09-03-2020 COVID-19 Vaccine Pfizer - Documentation Purposes Only Ranjana Prado Other [facility] 08-13-2020 COVID-19 Vaccine Pfizer - Documentation Purposes Only Ranjana Prado Other [facility] 10-23-2019 pneumococcal conjuga te vaccine, 13 valent Ranjana Prado Other [facility] 02-05-2019 pneumococcal conjuga te vaccine, 13 valent Ranjana Prado Other [facility] NEGATED: Highlighted row has not occurred!04-09-2024 influenza virus vaccine, unspecified formulation Arvind Schneiderayani [facility] NEGATED: Highlighted row has not occurred!04-06-2023 influenza virus vaccine, unspecified formulation Ashely Worthy [facility] NEGATED: Highlighted row has not occurred!07-15-2022 influenza virus vaccine, unspecified formulation Dinorah MORRIS [facility] Payers Date Payer Category Payer Medicare [id number] 2023 Self-pay 2021 Private Health Insurance [employer] [id number] 2017 Medicare [id number] 1959 Medicare [id number] 1959 Unknown [id number] 1952 Unknown [id number] 2.16.840.1.202170.3.579.2.5 93 1952 Unknown [id number] 2.16.840.1.578466.3.579.2.5 93 1952 Unknown [id number] 2.16.840.1.751854.3.579.2.5 93 1952 Unknown [id number] 2.16.840.1.685529.3.579.2.3 56 1952 Unknown [id number] 2.16.840.1.168633.3.579.2.3 56 1952 Unknown [id number] 2.16.840.1.612575.3.579.2.3 56 1952 Unknown [id number] 2.16.840.1.043693.3.579.2.1 244 1952 Unknown [id number] 2.16.840.1.411460.3.579.2.1 286 1952 Unknown [id number] 2.16.840.1.290141.3.579.2.1 286 1952 Unknown [id number] 2.16.840.1.757049.3.579.2.7 27 1952 Unknown [id number] 2.16.840.1.015396.3.579.2.1 259 1952 Unknown [id number] 2.16.840.1.333342.3.579.2.1 259 1952 Unknown [id number] 2.16.840.1.685572.3.579.2.1 259 1952 Unknown [id number] 2.16.840.1.002782.3.579.2.1 259 1952 Unknown [id number] 2.16.840.1.999264.3.579.2.1 259 1952 Unknown [id number] 2.16.840.1.653604.3.579.2.1 259 1952 Unknown [id number] 2.16.840.1.796769.3.579.2.1 259 1952 Unknown [id number] 2.16.840.1.930915.3.579.2.1 259 1952 Unknown [id number] 2.16.840.1.910963.3.579.2.1 259 1952 Unknown [id number] 2.16.840.1.248306.3.579.2.1 259 1952 Unknown [id number] 2.16.840.1.002928.3.579.2.1 259 1952 Unknown [id number] 2.16.840.1.736628.3.579.2.1 259 Unknown Unknown [id number] 2.16.840.1.257339.3.579.2.5 31 Unknown [id number] 2.16.840.1.373623.3.579.2.5 31 Social History Date Type Detail Facility Start: 07-15-2022 End: 11-19-2024 Tobacco smoking status Ex-smoker (finding) [facility] Tobacco smoking status Never [facility] Start: 03-25-2023 Sex Assigned At Female F [facility] Start: 03-25-2023 Social alcohol use Social alcohol [facility] Work Phone: Comment on above: 3x a week; 25 years; History of tobacco use Current smoker [facility] Work Phone: History of tobacco use Cigarette Smoker [facility] Work Phone: Start: 03-25-2023 Alcohol intake Ex-drinker (finding) [facility] Work Phone: Start: 03-25-2023 Alcohol Comment socially [facility] Work Phone: Start: 1950 Sex Assigned At Not on file [facility] Work Phone: Start: 03-15-2023 End: 03-25-2023 Exposure to SARS-CoV-2 (event) Not sure [facility] Tobacco smoking status NHIS Tobacco smoking consumption unknown [facility] Sex Female (finding) [facility] Start: 1950 Sex Assigned At Female F [facility] Medical Equipment Procedure Code Equipment Code Equipment Origin al Text Equipment Identifier Dates CATARACT EXTRACT ION W/ INTRAOCULAR LENS Demario Obrien DO 04/01/20 Non Biological Eye L [id number] [facility] Start: 04-01-2020 Functional Status Date Assessment Result Facility 04-09-2024 Functional Status N/A [facility] 04-08-2023 Functional Status N/A [facility] 01-07-2023 Functional Status N/A [facility] 12-03-2022 Functional Status N/A [facility] 09-03-2022 Functional Status N/A [facility] 07-15-2022 Functional Status N/A [facility] Clinical Notes 07-05-2022 to 05-01-2024 Josie Lucas, PT - 05/01/2024 10:00 AM Mando Lucas, PT - 04/24/2024 9:00 AM Mando Lucas, PT - 04/19/2024 2:30 PM EST [...] to be instructed in home exercise program. [employer] Goals: To be met in 10 weeks [...] sign below. Date: documented in this encounter [facility] 04-24-2024 History of Presen t illness Narrative [...] to be instructed in home exercise program. [employer] Goals: To be met in 10 weeks [...] sign below. Date: documented in this encounter [facility] 04-19-2024 History of Presen t illness Narrative [...] to be instructed in home exercise program. [employer] Goals: To be met in 10 weeks [...] sign below. Date: documented in this encounter [facility] 05-05-2023 Evaluation note Encounter Date Diagnosis Assessment Notes Apr, Bronchitis (ICD-10 - J40) Take antibiotic as directed. If develop wheezing, chest tightness, itching, bad cough, blue skin color, seizures, swelling of face, lips, tongue, or throat report to ED. [facility] Other 12-01-2023 Hospital Discharge instructions Patient Education [...] Bulgur wheat. Millet. Quinoa. Bran muffins. Popcorn. [place] wafer crackers. Meats and other proteins [place] beans, kidney beans, and pritchard beans. Soybeans. [...] Cream cheese. Sour cream. Fats and oils [place]. Beverages Soft drinks. Other foods Cakes and [...] provider. Document Revised: 08/28/2020 Document Reviewed: 08/28/2020 [employer] Patient Education 2022 [employer]. Follow Up Care 01/07/2023 13:44:26 With:Ashely Worthy CNP Address: When:1 year [facility] 11-17-2023 History of Present illness Narrative* Debbie Nagy MD - 03/25/2023 1:10 PM EST Subjective Yaa Duggan is a 72 y.o. female Chief [...] whether serious comorbidity present documented in this [facility] Work Phone: 1(748) 200-296311-17-2023 Instructions* Patient Instructions* Aleja Trinidad LPN - [...] [facility] 1(201) 720-690910-27-2023 Evaluation note* Encounter Date Diagnosis Assessment Notes Treatment Notes Treatment Clinical Notes Feb, SOB (shortness of breath) (ICD-10 - R06.02) Discussed recent normal cardiac cath. Add steroid to help with dyspnea symptom. Check CXR and EKG to be complete. Assess renal function in near future with lab to address the urinary symptoms. [facility] Other 09-15-2023 History general Narrative - Reported* Type Description Date Medical History Hypothyroidism Medical History Hypertension Medical History Bladder Cancer Medical History Anal Cancer Surgical History Hernia 2015 Surgical History Heart Cath 01/21/2023 Hospitalization History See Surgical Hx [facility] Other 09-11-2023 Evaluation note* Encounter Date Diagnosis [...] unspecified type (ICD-10 - R06.00) as above [facility] Other 09-01-2023 Hospital Discharge instructions Patient Education [...] oral rehydration solution (ORS). This is an grwp-adq-hpnjguc medicine that helps return your body to [...] drinks, sports drinks, and soda. Eat bland, cdwa-zv-ogppkz foods in small amounts as you are able. These foods include bananas, applesauce, rice, lean meats, toast, and crackers. Avoid alcohol. Avoid spicy or fatty foods. Medicines Take ohqs-vfv-pculdic and prescription medicines only as told by your health care provider. If you were prescribed an antibiotic medicine, take it as told by your health care provider. Do notstop using the antibiotic even if you start to feel better. General instructions Wash your hands often using soap and water. If soap and water are not available, use a hand box attacher. Others in the household should wash their [...] soap and water are not available, usehand box attacher. Contact a health care provider if your diarrhea gets worse or you have new symptoms. Get help right away if you have signs of dehydration. This information is not intended to replace advice given to you by your health care provider. Make sure you discuss any questions you have with your health care provider. Document Revised: 11/04/2021 Document Reviewed: 11/04/2021 [employer] Patient Education 2022 [employer]. Follow Up Care 12/03/2022 14:02:26 With:Ashely Worthy CNP Address: When:3 months [facility] 08-31-2023 Evaluation note* Encounter Date [...] call w bps on 01/11 for followup. [facility] Other 07-28-2023 Hospital Discharge instructions Patient Education [...] oral rehydration solution (ORS). This is an kucw-sfj-jrlofsd medicine that helps return your body to [...] drinks, sports drinks, and soda. Eat bland, bhzi-xf-cdnzqf foods in small amounts as you are able. These foods include bananas, applesauce, rice, lean meats, toast, and crackers. Avoid alcohol. Avoid spicy or fatty foods. Medicines Take sbtm-kah-yzgqvxo and prescription medicines only as told by your health care provider. If you were prescribed an antibiotic medicine, take it as told by your health care provider. Do notstop using the antibiotic even if you start to feel better. General instructions Wash your hands often using soap and water. If soap and water are not available, use a hand box attacher. Others in the household should wash their [...] soap and water are not available, usehand box attacher. Contact a health care provider if your diarrhea gets worse or you have new symptoms. Get help right away if you have signs of dehydration. This information is not intended to replace advice given to you by your health care provider. Make sure you discuss any questions you have with your health care provider. Document Revised: 11/04/2021 Document Reviewed: 11/04/2021 [employer] Patient Education 2022 [employer]. Follow Up Care 09/03/2022 14:00:02 With:Ashely Worthy CNP Address: When:1 month [facility] 04-28-2023 Hospital Discharge instructions Patient [...] hard liquor (44 mL). General instructions Take ipxh-lqj-kedzqqo and prescription medicines only as told by [...] provider. Document Revised: 08/13/2020 Document Reviewed: 08/13/2020 [employer] Patient Education 2022 [employer]. 09/03/2022 13:29:38 Proctitis Proctitis Proctitis is swelling [...] Follow these instructions at home: Medicines Take oima-aoi-syidorj and prescription medicines only as told by [...] to keep your urine pale yellow. ?Take zryh-edq-qzslbqr or prescription medicines. ?Eat foods that are [...] provider. Document Revised: 11/04/2021 Document Reviewed: 11/04/2021 [employer] Patient Education 2022 [employer]. Follow Up Care 08/30/2022 09:35:31 With:Ashely Worthy CNP Address: When:3 months [facility] 03-22-2023 Evaluation note* Encounter Date Diagnosis Assessment Notes Treatment Notes Treatment Clinical Notes Jul, Elevated fasting glucose (ICD-10 - R73.01) [facility] Other 03-14-2023 Evaluation + Plan note Diagnostic Tests Pending * Pancreatic Elastase, Fecal 07/20/22 * Giardia lamblia, Direct Detection EIA 07/20/22 * O & P Exam, Routine 07/20/22 [facility]03-09-2023 Evaluation + Plan note Future Scheduled Tests Laboratory* Pancreatic Elastase, Fecal 07/15/22 * Fecal WBC Lactoferrin 07/15/22 * Giardia lamblia, Direct Detection EIA 07/15/22 * O & P Exam, Routine 07/15/22 * Clostridium Difficile PCR 07/15/22 * Enteric Panel by PCR 07/15/22 [facility] 03-09-2023 Evaluation + Plan note Diagnostic Tests Pending * t-Transglutaminase IgA 07/15/22 * IgA, Quant. 07/15/22 Future Scheduled Tests Laboratory* Pancreatic Elastase, Fecal 07/15/22 * Fecal WBC Lactoferrin 07/15/22 * Giardia lamblia, Direct Detection EIA 07/15/22 * O & P Exam, Routine 07/15/22 * Clostridium Difficile PCR 07/15/22 * Enteric Panel by PCR 07/15/22 [facility]02-28-2023 Evaluation note* Encounter Date Diagnosis Assessment Notes Treatment Notes Treatment Clinical Notes Jun, Pure hypercholestero lemia (ICD-10 - E78.00) [facility] Other 02-27-2023 Evaluation note* Encounter Date Diagnosis [...] yearly screening mammogram. Screening mammogram ordered today. [facility] Other Chidx complaint Narrative - Reported* YAA DUGGAN is [...] of her progressive dyspnea and chest pain. [facility] 250 DO Work Phone: Evaluation + Plan note Future Appointments Appointment Date:12/03/2022 01:20:00 PM Scheduled Provider:Ashely Worthy CNP Location[facility] Type:[facility] Follow Up [facility] Evaluation + Plan note Future Appointments Appointment Date:12/03/2022 01:20:00 PM Scheduled Provider:Ashely Worthy CNP Location[place]ment Type:[facility] Follow Up Diagnostic Tests Pending * Celiac Disease Comprehensive 09/03/22 [facility] Future Appointments Appointment Date:04/08/2023 10:00:00 AM Scheduled Provider:Ashely Worthy CNP Location[place] App[facility]ment Type:[facility] Follow Up [facility] Evaluation + Plan note Future Appointments Appointment Date:04/09/2024 10:00:00 AM Scheduled Provider:Ashely Worthy CNP Location[place] App[facility]ment Type:[facility] Follow Up [facility] Evaluation + Plan note Future Appointments Appointment Date:01/07/2023 01:00:00 PM Scheduled Provider:Ashely Worthy CNP Location[place] Appointment Type:[facility] Follow Up [facility] evaluation noteNo [facility] E96 Other Evaluation note* Diagnosis Essential hypertension, benign- Primary Mixed hyperlipidemia Atypical chest pain Other chest pain Class 2 obesity with body mass index (BMI) of 35.0 to 35.9 in adult, unspecified obesity type, unspecified whether serious comorbidity present documented in this encounter [facility] Work Phone: Evaluation note* Diagnosis Vertigo- Primary Dizziness and giddiness [facility] Diagnosis Onset Date Resolution Status Admit Date Essential (primary) hypertension acu te November 19, 2024 11:16am Hypothyroidism acute November 19, 2024 11:16am Medicare annual wellness vis it, subsequent acute November 19, 2024 11:16am Pure hypercholesterolemia acute November 19, 2024 11:16am Right-sided chest pain acute Ju 2024 11:16am Screening mammogram for vic [facility] cancer acute November 19, 2024 11:16am Thyroid nodule acute November 19, 2024 11:16am [facility] Work Phone: Hisedbv general Narrative - Reported* Type Description Date Medical History Hypothyroidism Medical History Hypertension Medical History Bladder Cancer Medical History Anal Cancer Surgical History Hernia 2014 [place] E96 Other [facility] general Narrative - Reported* Type Description Date Medical History Hypothyroidism Medical History Hypertension Medical History Bladder Cancer Medical History Anal Cancer Surgical History Hernia 2015 Hospitalization History See Surgical Hx [facility] Other Hospital course Narrative No data available for this section [facility] Hospital Discharge instructions No data available for this section [facility] Progress note No data available for this section [facility] Reason for referral (narrative)No reason for referral information availableKindred Healthcare Work Phone: Reason for visit Narrative* Rehabilitation - Outpatient (Routine) - Authorized Specialty Diagnoses / Procedures Referred By Lumaac t Referred To Contact Physical Therapy Diagnoses Vertigo Procedures MS PHYSICAL THERAPY EVALUATION LOW COMPLEX 20 MINS MS OFFICE/OUTPATIENT NEW HIGH MDM EVALUATION Ranjana Prado MD [address] [place] [address] Phone: tel: fax: Josie Lucas, JACLYN Referral ID Status Reason Start Date Expiration Date V isits Requested Visits Authorized [id number] Authorized 04/19/2024 10/16/2024 15 15 [facility] Rehabilitation - Outpatient (Routine) - Authorized Specialty Diagnoses / Procedures Referred By Brigid washington Referred To Contact Physical Therapy Diagnoses Vertigo Procedures MS PHYSICAL THERAPY EVALUATION LOW COMPLEX 20 MINS MS OFFICE/OUTPATIENT NEW HIGH MDM EVALUATION Ranjana Prado MD [address] [place] [address] Phone: tel: fax: Josie Lucas, PT Referral ID Status Reason Start Date Expiration Date V isits Requested Visits Authorized [id number] Authorized 04/19/2024 05/08/2024 15 15 [facility] Summary Purpose Family History Unknown Family Member Name Dates Details Lupus: Mother Status:Active No pertinent family history: Father(V49.89, Z78.9) Status:Active Family history of asthma: Br other(V17.5, Z82.5) Status:Active Family history of CABG: Brot her(V17.49, Z82.49) Status:Active Family history of coronary a rtery disease: Brother(V17.3, Z82.49) Status:Active Carotid stenosis, non-sympto matic: Mother Status:Active Carotid artery plaque: Mothe r Status:Active Relationship Condition Age at Onset Recorded Date/T rohith brother History of heart surgery Unknown father Unknown mother Unknown Advance Directives Advance Directive Response Recorded Date/ Time Advance Directives No January 8:24am Reason for Referral Reason Labile BPs, dyspnea, chest pressure, jaw pain, leaving for vacation on 01/29. Today and last OV w labs Diagnosis 1 Essential (primary) hypertension (I10) Referral Organization [facility] [employer] Kaden peter Referring Provider First Name Ranjana Referring Provider Last Name Eve Referring Provider Specialty [facility] [employer] Referred Organization [facility] enter Referred Address [address],[address] Referred Provider Specialty Cardiology Referral Priority Routine Reason 07/15/22 Chronic d iarrhea Diagnosis 1 Chronic diarrhea (K5 2.9) Referral Organization [facility] [employer] C brittani Referring Provider First Name Ranjana Referring Provider Last Name Eve Referring Provider Specialty [facility] [employer] Referred Organization [facility] Referred Provider Dinorah Morris Referred Address [address] [place], [place],[address] Referred Provider Specialty Gastroentero logy Referral Priority [...] TO DR. PRADO FOR REVIEW. CLOSING REFERRAL Chief Complaint and Reason for Visit Chief Complaint Admit Date wellness November 19, 2024 11:1 6am Reason for Visit Admit Date Essential (primary) hypertension November 192024 11:16am Hypothyroidism November 19, 2024 11:1 6am Medicare annual wellness visit, subseque nt November 19, 2024 11:16am Pure hypercholesterolemia November 19 11:16am Right-sided chest pain November 19, 2024 1 1:16am Screening mammogram for breast cancer Ju ly 2024 11:16am Thyroid nodule November 19, 2024 11:1 6am Additional Source Comments INFORMATION SOURCE (unrecogn ized section and content) DATE CREATED AUTHOR 07/14/2022 [facility] DATE CREATED AUTHOR AUTHOR'S ORGANIZ ATION 01/21/2023 [employer] DATE CREATED AUTHOR AUTHOR'S ORGANIZ ATION 01/25/2023 [facility] DATE CREATED AUTHOR AUTHOR'S ORGANIZ ATION 03/28/2023 [facility] DATE CREATED AUTHOR AUTHOR'S ORGANIZ ATION 08/10/2023 [facility] DATE CREATED AUTHOR AUTHOR'S ORGANIZ ATION 12/20/2023 [facility] DATE CREATED AUTHOR AUTHOR'S ORGANIZ ATION 04/10/2024 [facility] DATE CREATED AUTHOR AUTHOR'S ORGANIZ ATION 05/03/2024 [facility] EPIC Patient Care team informatio n (unrecognized section and content) Construction Engineering Manager Relationship Specialty Start Date End Date Ranjana Prado MD [address] [place] [address] [address] [place] [id number] PCP - General 01/19/23 Team Status: Active Member Role Status Dates Ranjana Prado MD Primary Care Provider Active Team Status: Inactive Member Role Status Dates Ranjana Prado MD Primary Care Provider Active Start: November 19, 2024 End: November 19, 2024 Ranjana Prado MD Attending Provider Active St art: November 19, 2024 End: November 19, 2024 REASON FOR VISIT (unrecogniz ed section and content) Reason Comments Post-Cath Goals (unrecognized section and content) Goals may be documented in a n alternate section FOR RECORDS PERTAINING TO PATIENTS WHO ARE [...] BE BASED ON THE PRIMARY CLINICAL RECORDS. [facility] [facility]. provides no warranty or guarantee of the accuracy or completeness of information in this document.
--- NOTE | 2024-11-27 08:02 | CT_ITS ---
The [address] [address] Patient Name: JUSTIN DUGGAN MRN: [id number] date: 1950 Sex: F Assigned Patient Location: US Current Patient Location: US Accession/Order Number: [id number] Exam Date: 11/27/2024 09:16 Report Date: 11/27/2024 09:19 At the request of: KATE PRADO MD Procedure: CT chest w con CT CHEST WITH INTRAVENOUS CONTRAST: CLINICAL HISTORY: Right Sided Chest Pain, Abnormal Liver Function Test COMPARISON: Chest 11/22/2024 TECHNIQUE: Spiral images were obtained through the chest following intravenous administration of IV contrast. This CT exam was performed using one or more following dose reduction techniques: Automated exposure control, adjustment of the mA and/or kV according to patient size, or use of iterative reconstruction technique. FINDINGS: Mediastinum:Thoracic aorta appears normal in caliber. Pulmonary trunk appears nondilated. No pericardial effusion. Calcified mediastinal lymph nodes. The esophagus is grossly unremarkable. Lungs:Mild lung scarring. No consolidation pneumothorax or pleural effusion. Presumed postinflammatory subpleural nodule involving the right middle lobe measuring 6 mm. Abd:Cirrhotic appearing liver. Trace ascites. Splenic granuloma. Soft tissues/Bones: Soft tissues demonstrate no acute process. Osseous structures demonstrate degenerative change. CT/CT chest w con IMPRESSION: No acute findings seen within the chest. Partially visualized cirrhotic appearing liver with trace ascites. Impression dictated by: Jersey Warner Jr., D.O. 11/27/2024 9:19 AM Dictation Location: [place] [address] Electronically authenticated by: [id number] Y Date: 11/27/2024 09:19
== END 2024-11-27 07:17 | disposition home or self-care (01) ==
LOC: US 07:16
PROVIDERS: PCP Family Medicine; Visit Provider Family Medicine
DX: R07.9 Chest pain, unspecified (principal); R79.89 Other specified abnormal findings of blood chemistry; K74.60 Unspecified cirrhosis of liver; R18.8 Other ascites; K86.9 Disease of pancreas, unspecified
CPT/HCPCS: 71260; 76705; Q9967

== ENCOUNTER 2025-01-01 07:57 | Outpatient (RCR) | payer MEDICARE, OTHER, SELFPAY ==
[2025-01-01 15:19] LABS: Hematocrit 32.2 % (36.0-48.0); Hemoglobin 10.1 g/dL (12.0-16.0); Immature Granulocytes Abs Auto 0.01 10^3/uL (0.00-0.03); Immature Granulocytes Pct Auto 0.2 % (0.0-0.5); Lymphocytes Absolute Auto 1.8 10^3/uL (1.2-3.8); Mean Corpuscular HGB Conc 31.4 g/dL (29.9-35.2); Mean Corpuscular Hemoglobin 24.9 pg (26.7-34.0); Mean Corpuscular Volume 79.5 fL (81.0-99.0); Platelet Count 240 10^3/uL (150-450); Red Blood Count 4.05 10^6/uL (4.20-5.40); White Blood Count 6.6 10^3/uL (4.0-11.0)
[2025-01-01 15:39] LABS: Alanine Aminotransferase 52 U/L (14-59); Albumin Globulin Ratio 0.4; Albumin Level 3.1 g/dL (3.4-5.0); Alkaline Phosphatase 209 U/L (46-116); Anion Gap 9.9; Aspartate Amino Transferase 121 U/L (15-37); Blood Urea Nitrogen 14.0 mg/dL (7.0-18.0); Calcium 8.4 mg/dL (8.5-10.1); Carbon Dioxide 26.0 mmol/L (21.0-32.0); Chloride 101 mmol/L (98-107); Estimated GFR (African America 60 (>=60 mL/min/1.73m^2); Estimated GFR (Non-African Ame 49 (>=60 mL/min/1.73m^2); Globulin 8.8 g/dL; Glucose 102 mg/dL (74-106); Potassium 3.9 mmol/L (3.5-5.1); Sodium 133 mmol/L (136-145); Total Protein 11.9 g/dL (6.4-8.2)
[2025-01-02 04:07] LABS: AFP, Serum, Tumor Marker 3.3 ng/mL (0.0-9.2)
[2025-01-03 08:09] LABS: CA 19-9 96 U/mL (0-35); CEA 1.5 ng/mL (0.0-4.7)
== END 2025-01-06 23:59 | disposition home or self-care (01) ==
LOC: HEMC 07:57
PROVIDERS: PCP Family Medicine; Visit Provider Internal Medicine Hematology & Oncology
DX: C20 Malignant neoplasm of rectum (principal); C67.0 Malignant neoplasm of trigone of bladder; K74.60 Unspecified cirrhosis of liver; R74.01 Elevation of levels of liver transaminase levels; K86.9 Disease of pancreas, unspecified; Z90.49 Acquired absence of other specified parts of digestive tract; Z90.710 Acquired absence of both cervix and uterus; Z87.891 Personal history of nicotine dependence; Z92.21 Personal history of antineoplastic chemotherapy; R97.8 Other abnormal tumor markers
CPT/HCPCS: 36415; 80053; 82105; 82378; 85025; 86301; G0463

== ENCOUNTER 2025-01-14 15:25 | Outpatient (OUT) | payer MEDICARE, OTHER, SELFPAY ==
--- NOTE | 2025-01-14 16:57 | PE_ITS ---
The [address] [address] Patient Name: JUSTIN DUGGAN MRN: [id number] date: 1950 Sex: F Assigned Patient Location: PETCT Current Patient Location: Accession/Order Number: [id number] Exam Date: 01/14/2025 15:53 Report Date: 01/15/2025 10:46 At the request of: ABISAI SANTIAGO MD Procedure: PET skull to mid thigh PET/CT WITH FUSION COMPARISON: Colorectal cancer COMPARISON: CT chest 11/27/[address] [facility] [address] abdomen pelvis 12/11/2024 Following the intravenous administration of 12.18 mCi of FDG, SPECT imaging in 3 planes was performed from the level the orbits through the groin. Patient's blood glucose level at the time of injection was 117 mg/dL. Spiral unenhanced CT was also performed for anatomic localization. The PET and CT images were fused. This CT exam was performed using one or more following dose reduction techniques: Automated exposure control, adjustment of the mA and/or kV according to patient size, or use of iterative reconstruction technique. NECK: No enlarged or hypermetabolic cervical lymph nodes are visualized. There is physiologic activity at the vocal cords. CHEST: There are no enlarged or hypermetabolic mediastinal, hilar or axillary lymph nodes. There is an enlarging small to moderate size layering left pleural effusion. There is adjacent atelectasis. There is a stable subpleural right middle lobe nodule, without associated FDG uptake. No hypermetabolic pulmonary nodularity is seen. Granulomatous changes are present. ABDOMEN/PELVIS: There is no abnormal hypermetabolism associated with the liver or adrenal glands. The liver has a cirrhotic morphology. There are still prominent periportal lymph nodes with SUV up to 4.2. There is a 12 mm left periaortic lymph node with slight FDG uptake and SUV of 3.8. No additional hypermetabolic abdominal or pelvic lymph nodes are present. There is still a large anterior pelvic mass of fluid attenuation based on Hounsfield measurements. The mass is photopenic on the PET images. It still has a second lower attenuation nodular component within it posteriorly. There is prior hysterectomy. The mass was reported to be urinary bladder on the comparison CT, however there is a separate bladder which contains radioactive urine. The etiology of the mass is not entirely clear though it could be ovarian in origin. There is no obvious mass or hypermetabolism at the rectum. There is a small amount of ascites at the upper abdomen as well as the pelvis. There is left-sided diverticular disease. PET/PET skull to mid thigh IMPRESSION: ABDOMINAL LYMPH NODES WITH MILD ASSOCIATED INCREASED FDG UPTAKE. NO HYPERMETABOLISM ASSOCIATED WITH THE RECTUM. ENLARGING LEFT PLEURAL EFFUSION. COMPLICATED CYSTIC PELVIC MASS, UNDETERMINED ORIGIN. PELVIC ULTRASOUND COULD BE CONSIDERED. CIRRHOTIC APPEARING LIVER AND SMALL AMOUNT OF ASCITES. Impression dictated by: Clarisa Neal M.D. 01/15/2025 10:46 AM Dictation Location: [place] [address] Electronically authenticated by: [id number] Y Date: 01/15/2025 10:46
== END 2025-01-14 15:26 | disposition home or self-care (01) ==
LOC: PETCT 15:25
PROVIDERS: PCP Family Medicine; Visit Provider Internal Medicine Hematology & Oncology
DX: R74.01 Elevation of levels of liver transaminase levels (principal); C20 Malignant neoplasm of rectum; C67.0 Malignant neoplasm of trigone of bladder; K74.60 Unspecified cirrhosis of liver; K86.9 Disease of pancreas, unspecified
CPT/HCPCS: 78815; A9552

== ENCOUNTER 2025-01-22 13:47 | Outpatient (RCR) | payer MEDICARE, OTHER, SELFPAY ==
[2025-01-22 15:16] LABS: Hematocrit 30.1 % (36.0-48.0); Hemoglobin 9.4 g/dL (12.0-16.0); Immature Granulocytes Abs Auto 0.01 10^3/uL (0.00-0.03); Immature Granulocytes Pct Auto 0.2 % (0.0-0.5); Lymphocytes Absolute Auto 1.5 10^3/uL (1.2-3.8); Mean Corpuscular HGB Conc 31.2 g/dL (29.9-35.2); Mean Corpuscular Hemoglobin 24.5 pg (26.7-34.0); Mean Corpuscular Volume 78.4 fL (81.0-99.0); Platelet Count 240 10^3/uL (150-450); Red Blood Count 3.84 10^6/uL (4.20-5.40); White Blood Count 5.5 10^3/uL (4.0-11.0)
[2025-01-22 15:34] LABS: Alanine Aminotransferase 57 U/L (14-59); Albumin Globulin Ratio 0.3; Albumin Level 2.9 g/dL (3.4-5.0); Alkaline Phosphatase 229 U/L (46-116); Anion Gap 11.6; Aspartate Amino Transferase 118 U/L (15-37); Blood Urea Nitrogen 16.0 mg/dL (7.0-18.0); Calcium 8.0 mg/dL (8.5-10.1); Carbon Dioxide 20.9 mmol/L (21.0-32.0); Chloride 110 mmol/L (98-107); Estimated GFR (African America 60 (>=60 mL/min/1.73m^2); Estimated GFR (Non-African Ame 49 (>=60 mL/min/1.73m^2); Globulin 8.8 g/dL; Glucose 118 mg/dL (74-106); Potassium 3.5 mmol/L (3.5-5.1); Sodium 139 mmol/L (136-145); Total Protein 11.7 g/dL (6.4-8.2)
[2025-01-22 15:42] LABS: Iron 35.0 ug/dL (50.0-170.0); Percent Iron Saturation 9.7 %; Total Iron Binding Capacity 362.0 ug/dL (250.0-450.0)
[2025-01-22 16:01] LABS: Ferritin 28.0 ng/mL (8.0-252.0)
[2025-01-23 04:07] LABS: Vitamin B12 560 pg/mL (232-1245)
[2025-01-24 15:09] LABS: Albumin 2.7 g/dL (2.9-4.4); Alpha-1-Globulin 0.6 g/dL (0.0-0.4); Alpha-2-Globulin 0.8 g/dL (0.4-1.0); Free Kappa Lt Chains,S 135.4 mg/L (3.3-19.4); Free Lambda Lt Chains,S 184.8 mg/L (5.7-26.3); Gamma Globulin 4.7 g/dL (0.4-1.8); Immunoglobulin A, Qn, Serum 368 mg/dL (64-422); Kappa/Lambda Ratio,S 0.73 (0.26-1.65)
== END 2025-02-05 23:59 | disposition home or self-care (01) ==
LOC: HEMC 13:47
PROVIDERS: PCP Family Medicine; Visit Provider Internal Medicine Hematology & Oncology
DX: C20 Malignant neoplasm of rectum (principal); C67.0 Malignant neoplasm of trigone of bladder; K74.60 Unspecified cirrhosis of liver; R74.01 Elevation of levels of liver transaminase levels; K86.9 Disease of pancreas, unspecified
CPT/HCPCS: 36415; 80053; 82607; 82728; 82784; 83521; 83540; 83550; 84155; 84165; 85025; 85652; 86140; 86334

== ENCOUNTER 2025-01-24 09:32 | Outpatient (OUT) | payer MEDICARE, OTHER, SELFPAY ==
--- OUTSIDE RECORDS SUMMARY | 2025-01-24 09:37 | XMS_ITS | CCD ---
Author Organization [facility] Care Team Providers Care Switchboard Troubleshooter Name Role Phone EVE, DR KATE Ji Admitting Unavailable PRAOD, DR KATE Ji Attending Unavailable PRADO, DR KATE Ji Primary Care Unavailable JOHANNA, KATI Dawkins Consulting Unavailable EVE, DR KATE Ji Consulting Unavailable EVE, DR KATE Ji Admitting Unavailable PRADO, DR KATE Ji Attending Unavailable EVE, DR KATE Ji Primary Care Unavailable PRADO, DR KATE Ji Consulting Unavailable EVE, DR KATE Ji Admitting Unavailable PRADO, DR KATE Ji Attending Unavailable PRADO, DR KATE Ji Primary Care Unavailable PRADO, DR KATE Ji Consulting Unavailable KATE PRADO Primary Care Physician Kate Prado Unavailable Kate Prado Unavailable Unavailable Unavailable Dr. Kate Prado Primary Care Unav ailEleazar Barba Attending Unavailable Eleazar Nagy Referring Unavailable Eve, Dr. Kate Griffin Primary Care Unav ailEleazar Barba Attending Unavailable Kate Prado MD Primary Care Provider ELEAZAR NAGY Attending Unavailable KATE PRADO Primary Care Unavailbrien ble Arvind Berg Attending Unavaila ble Unavailable Primary Care Provider UnavailALLEY Dodge Attending Unavailable KATE PRADO Referring Unavailable TATTERSSENG MONIQUE Attending Unavailable KATE PRADO Referring Unavailable TATTERSALL, SENG Attending Unavailable KATE PRADO Referring Unavailable TATTERSSENG MONIQUE Attending Unavailable KATE PRADO Referring Unavailable TATTERSALL, SENG Attending Unavailable KATE PRADO Referring Unavailable TATTERSALL, SENG Attending Unavailable KATE PRADO Referring Unavailable TATTERSALL, SENG Attending Unavailable PRADO, KATE Referring Unavailable SCHUYLER, SENG Attending Unavailable PRADO, KATE Referring Unavailable TATTERSENEIDA, SENG Attending Unavailable PRADO, KATE Referring Unavailable MAAME, ALLEY Attending Unavailable PRADO, KATE Referring Unavailable LUCAS, ALLEY Attending Unavailable PRADO, KATE Referring Unavailable LUCAS, ALLEY Attending Unavailable PRADO, KATE Referring Unavailable Kate Prado MD Primary Care Provider Kate Prado MD Primary Care Provider Kate Prado MD Attending Provider Ilya GATES, Dimple Attending Provider [phone] BIN, ANAYELI G Referring Unavailable PRADO, KATE E Primary Care Unavailable BIN, ANAYELI G Admitting Unavailable BIN, ANAYELI G Attending Unavailable BIN, ANAYELI G Referring Unavailable PRADO, KATE E Primary Care Unavailable Emily Robles MD Attending Provider Ilya GATES, Imomega Other Provider Asaad, Imad Attending Unavailable Prado, Kate E Primary Care Unavailable Asaad, Imad Admitting Unavailable Prado, Kate E Admitting Unavailable Prado, Kate E Primary Care Unavailable Prado, Kate E Attending Unavailable Asaad, Imad Admitting Unavailable Asaad, Imad Attending Unavailable Prado, Kate E Primary Care Unavailable Allergies Allergy Classification Reported Allergen(s) Allergy Type Date of Onset Reaction(s) Facility (9 sources) Codeine; Translations: [CODEINE] Drug Allergy 03-05-20 [address] [facility] Repository (2 sources) Phenazopyridine; Translations: [Pyridium] Drug Allergy 03-05-[address] [facility] Repository (19 sources) Codeine; Translations: [codeine] Drug Allergy 01-31-20 21 rash [facility] (20 sources) Phenazopyridine; Translations: [phenazopyridine] Drug Allergy 02-21-20 21 Vomiting (disorder), Nausea/vomitin g, Nausea [facility] (15 sources) prednisoLONE; Translations: [prednisolone ophthalmic] Drug Allergy 03-17-20 21 Swollen Lymph nodes [facility] (8 sources) Codeine Drug Allergy rash [facility] Other (1 source) Codeine Drug Allergy 01-15-20 [facility] Repository (1 source) Phenazopyridine Drug Allergy 01-15-20 [facility] Repository Medications Current Medications Medication Drug Class(es) Dates Sig (Normalized) Sig (Original) azithromycin 250 mg oral tablet (5 sources) [...] resin 4000 mg powder for oral suspension (19 sources) Bile Acid Sequestrant Start: 04-08-2023 cholestyramine [...] Daily, # 30 EA, Refills(s) 11, Pharmacy: [facility]/pharmacy #[id number], 168, cm, 07/15/22 13:08:00 EST, Height/Length [...] day(s), # 20 tab(s), Refills(s) 0, Pharmacy: [facility]/pharmacy #[id number], 168, cm, 07/15/22 13:08:00 EST, Height/Length Dosing, 100.5, kg, 07/15/22 13:08:00 EST, Weight Dosing Start Date: 07/15/22 Stop Date: 07/25/22 Status: Ordered folic acid 1 mg oral tablet (6 sources) Start: 11-23-2024 take 1 tablet by mouth once daily Folic Acid 1 mg tablet Active 1 MG PO Daily November 23, 2024 12:00am Complies with drug therapy Levsin (9 sources) Start: 07-15-2022 Levsin Refills(s) 0 Start Date: 07/15/22 Status: Ordered losartan potassium 100 mg oral tablet (20 sources) Angiotensin 2 Receptor Valerie Start: 05-04-2024 End: 01-21-2025 take 1 tablet by mouth once daily Losartan 100 mg tablet Active 0 .ROUTE .COMPLEX 90 January 21, 2025 8:25am TAKE 1 TABLET BY MOUTH DAILY Complies [...] tablet Orally Once a day Jan, Active pantoprazole 40 mg delayed release oral tablet (1 source) Proton Pump Inhibitor Start: 01-22-2025 take 1 tablet by mouth once daily polyethylene glycol 3350 15009 mg powder for oral solution (1 source) Osmotic Laxative Start: 01-14-2025 Polyethylene Glycol 3350 (Miralax) 17 gram/dose powder Active 4 GM PO As Directed January 14, 2025 12:00am Complies with drug therapy polyethylene glycol 3350 [id number] mg / potassium chloride 1480 mg / sodium bicarbonate 5720 mg / sodium chloride 14200 mg powder for oral solution (1 source) Osmotic Laxative Start: 08-02-2022 NuLYTELY Lorenzo oral powder for reconstitution See Instructions, 1 EA, Refill(s) 0, Prior to colonoscopy., [facility]/pharmacy #[id number], 168, cm, 07/15/22 13:08:00 EST, Height/Length [...] Drug Class(es) Dates Sig (Normalized) Sig (Original) [id number] 200 actuat albuterol 0.09 mg/actuat metered dose inhaler (13 sources) beta2-Adrenergic Agonist Start: 07-08-2023 End: 02-23-2024 [...] Dec, Active amLODIPine 10 mg oral tablet (20 sources) Dihydropyridine Calcium Channel Valerie Start: 07-04-2023 End: 12-24-2024 take 1 tablet by mouth once daily Amlodipine 10 mg tablet Discontinued 0 .ROUTE .COMPLEX July 04, 2024 11:15am December 24, 2024 12:25pm TAKE 1 TABLET BY MOUTH EVERY DAY FOR 30 DAYS Start: 01-21-2023 End: 07-04-2023 take 1 tablet by mouth once daily Amlodipine 10 mg tablet Discontinued 10 MG PO Daily January 21, 2023 12:00am July 04, 2023 4:14pm Start: 01-19-2023 End: 03-25-2023 take 1 tablet by mouth once daily Amlodipine 5 mg Tablet Discontinued 5 MG PO Daily January 21, 2023 12:00am January 21, 2023 4:16pm [id number] Jfg-[id number]-[id number]-Asb-C (3 sources) Osmotic Laxative, Vitamin C Start: 12-27-2024 End: 01-22-2025 take 1 dose by mouth once daily [id number] Lch-Zblm-Sjk-Asb-C (Plenvu) 140-9-5.2 gram powder in packet, sequential Discontinued 140 ML PO .COMPLEX 1 December 27, 2024 12:00am January 22, 2025 10:45am First dose at 4pm the day before colonoscopy, Second dose at 11pm the night before the colonoscopy Start: 12-27-2024 take 1 dose by mouth once bee y aspirin 325 mg oral tablet (6 sources) Platelet Aggregation Inhibitor, Nonsteroidal Anti-inflammatory Drug Start: 01-21-2023 End: 01-21-2023 take 1 tablet by mouth once daily Aspirin 325 mg Tablet Discontinued 325 MG PO Daily January 21, 2023 12:00am January 21, 2023 4:16pm Start: 01-19-2023 take 1 tablet by kim th once daily Aspirin 325 MG Oral Tablet TAKE 1 TABLET DAILY. Quantity: 90 Refills: 3 Ordered: 19-Jan-2023 Eleazar Nagy MD Start : 19-Jan-2023 Active atorvastatin 40 mg oral tablet (20 sources) HMG-CoA Reductase Inhibitor Start: 01-19-2023 End: 02-06-2024 take 1 tablet by mouth once daily at bedtime Atorvastatin 40 mg Tablet Discontinued 40 MG PO Daily at bedtime January 21, 2023 12:00am February 06, 2024 1:20pm Start: 07-15-2022 atorvastatin R efills(s) 0 Start Date: 07/15/22 Status: Ordered Start: 07-07-2022 take 1 tablet by kim th every twenty-four hours Atorvastatin Calcium 20 MG 1 tablet Orally Once a day for 90 days Jul, Active levothyroxine sodium 0.15 mg oral tablet (20 sources) l-Thyroxine Start: 08-08-2023 End: 12-03-2024 take 1 tablet by mouth once daily Levothyroxine 150 mcg tablet Discontinued 0 .ROUTE .COMPLEX September 06, 2024 8:35am December 03, 2024 3:25pm TAKE 1 TABLET BY MOUTH EVERY DAY Start: 01-21-2023 End: 08-08-2023 take 1 tablet by mouth once daily Levothyroxine 150 mcg Tablet Discontinued 150 MCG PO Daily January 21, 2023 12:00am August 08, 2023 11:52am Start: 03-31-2020 take 1 tablet by kim th once daily Synthroid 200 mcg (0.2 mg) Tab 200 mcg = 1 tab(s), Oral, Daily, Refills(s) 0 Start Date: 03/31/20 Status: Ordered levothyroxine (S YNTHROID, LEVOTHROID) 175 MCG tablet Indications: hypothyroidism Take 150 mcg by mouth in the morning. Indications: a condition with low thyroid hormone levels. Active take 1 tablet by kim th once daily Levothyroxine Sodium 150 MCG TAKE 1 TABLET BY MOUTH EVERY DAY for 90 Active meclizine hydrochloride 25 mg oral tablet (5 sources) Antiemetic Start: 04-17-2024 End: 11-19-2024 take 1 tablet by mouth twice daily as needed for dizziness Meclizine 25 mg tablet Discontinued 25 MG PO Twice daily as needed for dizziness April 17, 2024 1:00am November 19, 2024 11:23am nitroglycerin 0.4 mg sublingual tablet (9 sources) Nitrate Vasodilator Start: 01-19-2023 End: 07-08-2023 Nitroglycerin 0.4 mg Tablet, Sublingual Discontinued 0.4 MG SUBLINGUAL Q5M as needed for Angina January 21, 2023 12:00am July 08, 2023 12:33pm do not exceed 3 doses per episode Start: 01-19-2023 Nitroglycerin 0.4 MG Sublingual Tablet Sublingual as directed Quantity: 25 Refills: 5 Ordered: 19-Jan-2023 Eleazar Nagy MD Start : 19-Jan-2023 Active new Problems Active Problems Problem Classification Problem Date Documented Da te Episodic/Chronic Anal and rectal conditions (7 sources) Radiation proctitis; Translations: [Radiation proctitis] Onset: 09-03-2022 Episodic Cancer of bladder (3 sources) Malignant neoplasm, overlapping lesion of bladder; Translations: [Malignant neoplasm of overlapping sites of bladder] Onset: 02-20-2021 10-28-2023 Chronic Cancer of bladder (10 sources) H/O: malignant neoplasm; Translations: [Personal history of malignant neoplasm of bladder] Onset: 11-20-2024 11-19-2024 Episodic Cancer of rectum and anus (11 sources) Malignant tumor of anus; 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, unspecified] Onset: 07-15-2022 Chronic Cancer of rectum and anus (20 sources) History of malignant neoplasm of rectum; Translations: [Personal history of other malignant neoplasm of rectum, rectosigmoid junction, and anus] Onset: 09-03-2022 Episodic Chronic kidney disease (4 sources) Chronic kidney disease stage 3B ; Translations: [Stage 3b chronic kidney disease] 11-23-2024 Chronic Chronic obstructive pulmonary disease and bronchiectasis (2 sources) Bronchitis, not specified as acute or chronic Episodic Conditions associated with dizziness or vertigo (8 sources) Vertigo; Translations: [Dizziness and giddiness] 04-19-2024 [...] hypertension; Translations: [Essential hypertension] Onset: 07-05-2022 Chronic Genitourinary symptoms and ill-defined conditions (3 sources) Urge incontinence of urine; Translations: [Urge incontinence] Onset: 12-22-2021 12-22-2021 Chronic Hemorrhoids (7 sources) Hemorrhoids; Translations: [Unspecified hemorrhoids] Onset: 09-03-2022 Episodic Intestinal infection (10 sources) Small bowel bacterial overgrowth syndrome 07-15-2022 Episodic Nausea and vomiting (4 sources) Nausea; Translations: [Nausea] Onset: 01-07-2023 Episodic Noninfectious gastroenteritis (2 sources) Noninfectious enteritis; Translations: [Noninfective gastroenteritis and colitis, unspecified] Onset: 07-14-2022 Episodic Nonspecific chest pain (14 sources) Atypical chest pain; Translations: [Other chest pain] Onset: 03-25-2023 03-25-2023 Episodic Other aftercare (2 sources) History of bladder neoplasm; Translations: [Encounter for follow-up examination after completed treatment for malignant neoplasm] Onset: 11-19-2024 11-20-2024 Episodic Other aftercare (1 source) Encounter for follow-up examination after completed treatment for malignant neoplasm; Translations: [Encounter for follow-up examination after completed treatment for malignant neoplasm] Onset: 11-20-2024 Episodic Other and unspecified benign neoplasm (7 sources) Polyp of colon; Translations: [Polyp of colon] Onset: 09-03-2022 Episodic Other and unspecified benign neoplasm (8 sources) History of polyp of colon; Translations: [Personal history of colonic polyps] Onset: 12-03-2022 Episodic Other diseases of bladder and urethra (4 sources) Hypertrophy of bladder; Translations: [Other specified disorders of bladder] 12-11-2024 Chronic Other diseases of veins and lymphatics (5 sources) Vascular insufficiency; Translations: [Venous insufficiency (chronic) (peripheral)] [...] (3 sources) Non-infective diarrhea 01-07-2023 Episodic Other gastrointestinal disorders (6 sources) Dysphagia; Translations: [Dysphagia, unspecified] 12-27-2024 Episodic Other gastrointestinal disorders (3 sources) Constipation; Translations: [Constipation, unspecified] 12-27-2024 Episodic Other liver diseases (6 sources) Cirrhosis of liver; Translations: [Unspecified cirrhosis of liver] 12-27-2024 Chronic Other liver diseases (1 source) Unspecified cirrhosis of liver; Translations: [Unspecified cirrhosis of liver] Onset: 12-28-2024 Chronic Other lower respiratory disease (1 source) Dyspnea, unspecified Episodic Other lower respiratory disease (2 sources) Dyspnea; Translations: [Other respiratory abnormalities] Onset: 03-25-2023 03-25-2023 Episodic Other lower respiratory disease (1 source) Shortness of breath Episodic Other nervous system disorders (17 sources) Impairment of balance; Translations: [Other abnormalities [...] (BMI) 35.0-35.9, adult] Onset: 03-25-2023 Chronic Other nutritional; endocrine; and metabolic disorders (8 sources) Body mass index 30+ - obesity; Translations: [Body mass index (BMI) 34.0-34.9, adult] 11-19-2024 Chronic Other screening for suspected conditions (not mental disorders or infectious disease) (20 sources) Encounter for screening mammogram for malignant neoplasm of breast; Translations: [Patient encounter status] Onset: 07-12-2022 Episodic Other skin disorders (5 sources) Bilateral localized swelling of lower legs; Translations: [Localized swelling, mass and lump, lower limb, bilateral] 07-11-2023 Episodic Pancreatic disorders (not diabetes) (11 sources) Mass of pancreas; Translations: [Other specified diseases of pancreas] Onset: 12-11-2024 11-29-2024 Episodic Residual codes; unclassified (5 sources) Bilateral lower limb edema; Translations: [Localized edema] 07-28-2023 Episodic Screening and history of mental health and substance abuse codes (1 source) Ex-smoker; Translations: [Personal history of tobacco use] Episodic Comment on above: 25 years; Spondylosis; intervertebral disc disorders; other back problems (5 sources) Neck pain; Translations: [Cervicalgia] 07-11-2023 Episodic Thyroid disorders (20 sources) Other specified hypothyroidism; Translations: [Hypothyroidism, unspecified] Onset: 09-25-2021 Chronic Unclassified (1 source) Encounter for follow-up surveillance of bladder cancer [Z08, Z85.51] Onset: 12-25-2024 Past or Other Problems Problem Classification Problem [...] Test Name Value Interpretation Reference Range Facility Basophils Auto (Bld) [#/Vol] Ordered By: Emily Robles on 01-01-2025 Basophils (Bld) [#/Vol] 0.0 10 3/uL 0.0-0.1 [facility] Basophils/100 WBC Auto (Bld) Ordered By: Emily Robles on 01-01-2025 Basophils/100 WBC (Bld) 0.2 % 0.2-2.0 [facility] Eosinophils/100 WBC Auto (Bl d)Ordered By: Emily Robles on 01-01-2025 Eosinophils/100 WBC (Bld) 0.6 % Low 0.9-7.0 [facility] Erythrocyte distribution wid th Auto (RBC) [Ratio]Ordered By: Emily Robles on 01-01-2025 Erythrocyte distribution width (RBC) [Ratio] 16.6 % High 11.0-15.0 [facility] Globulin Calc (S) [Mass/Vol] Ordered By: Emily Robles on 01-01-2025 Globulin (S) [Mass/Vol] 8.8 g/dL [facility] Glomerular filtration rate ( GFR) estimation in non- AmericanOrdered By: Emily Robles on 01-01-2025 GFR/1.73 sq M.predicted among non-blacks MDRD (S/P/Bld) [Vol rate/Area] 49 mL/min/{1.73_m2} Low >=60 mL/min/1.7 3m 2 [facility] Hematocrit Auto (Bld) [Volum e fraction]Ordered By: Emily Robles on 01-01-2025 Hematocrit (Bld) [Volume fraction] 32.2 % Low 36.0-48.0 [facility] Hemoglobin [Mass/volume] in BloodOrdered By: Emily Robles on 01-01-2025 Hemoglobin (Bld) [Mass/Vol] 10.1 g/dL Low 12.0-16.0 [facility] Laboratory - Chemistry and C hemistry - challengeOrdered By: Emily Robles on 01-01-2025 Albumin [Mass/Vol] 3.1 g/dL Low 3.4-5.0 [facility] ALP [Catalytic activity/Vol] 209 U/L High 46-116 [facility] ALT [Catalytic activity/Vol] 52 U/L 14-59 [facility] AST [Catalytic activity/Vol] 121 U/L High 15-37 [facility] Bilirubin [Mass/Vol] 1.0 mg/dL 0.2-1.0 [facility] Calcium [Mass/Vol] 8.4 mg/dL Low 8.5-10.1 [facility] Chloride [Moles/Vol] 101 mmol/L 98-107 [facility] CO2 [Moles/Vol] 26.0 mmol/L 21.0-32.0 [facility] Creatinine [Mass/Vol] 1.09 mg/dL High 0.55-1.02 [facility] GFR/1.73 sq M.predicted MDRD (S/P/Bld) [Vol rate/Area] 60 mL/min/{1.73_m2} >=60 mL/min/1.7 2 [facility] Glucose [Mass/Vol] 102 mg/dL 74-106 [facility] Potassium [Moles/Vol] 3.9 mmol/L 3.5-5.1 [facility] Protein [Mass/Vol] 11.9 g/dL High 6.4-8.2 [facility] Sodium [Moles/Vol] 133 mmol/L Low 136-145 [facility] Urea nitrogen [Mass/Vol] 14.0 mg/dL 7.0-18.0 [facility] Urea nitrogen/Creatinine [Mass ratio] 12.8 mg/mg [facility] Laboratory - Hematology and Cell countsOrdered By: Emily Robles on 01-01-2025 Immature granulocytes/100 WBC (Bld) 0.2 % 0.0-0.5 [facility] Leukocytes [#/volume] correc dinesh for nucleated erythrocytes in Blood by Automated counOrdered By: Emily Robles on 01-01-2025 WBC corrected for nucl RBC Auto (Bld) [#/Vol] 6.6 10 3/uL 4.0-11.0 [facility] Lymphocytes Auto (Bld) [#/Vo l]Ordered By: Emily Robles on 01-01-2025 Lymphocytes (Bld) [#/Vol] 1.8 10 3/uL 1.2-3.8 [facility] Lymphocytes/100 WBC Auto (Bl d)Ordered By: Emily Robles on 01-01-2025 Lymphocytes/100 WBC (Bld) 27.1 % 20.5-60.0 [facility] MCH Auto (RBC) [Entitic mass ]Ordered By: Emily Robles on 01-01-2025 MCH (RBC) [Entitic mass] 24.9 pg Low 26.7-34.0 [facility] MCHC Auto (RBC) [Mass/Vol]Or dered By: Emily Robles on 01-01-2025 MCHC (RBC) [Mass/Vol] 31.4 g/dL 29.9-35.2 [facility] MCV Auto (RBC) [Entitic vol] Ordered By: Emily Robles on 01-01-2025 MCV (RBC) [Entitic vol] 79.5 fL Low 81.0-99.0 [facility] Monocytes Auto (Bld) [#/Vol] Ordered By: Emily Robles on 01-01-2025 Monocytes (Bld) [#/Vol] 0.5 10 3/uL 0.3-0.8 [facility] Monocytes/100 WBC Auto (Bld) Ordered By: Emily Margaret on 01-01-2025 Monocytes/100 WBC (Bld) 6.8 % 1.7-12.0 [facility] Neutrophils Auto (Bld) [#/Vo l]Ordered By: Emily Margaret on 01-01-2025 Neutrophils (Bld) [#/Vol] 4.3 10 3/uL 1.4-6.5 [facility] Neutrophils/100 WBC Auto (Bl d)Ordered By: Emily Margaret on 01-01-2025 Neutrophils/100 WBC (Bld) 65.1 % 43.0-75.0 [facility] No Panel InformationOrdered By: Emily Margaret on 01-01-2025 Eosinophils # (Auto) 0.0 10 3/uL 0.0-0.7 [facility] Immature Granulocyte # (Auto) 0.01 10 3/uL 0.00-0.03 [facility] Platelet mean volume Auto (B ld) [Entitic vol]Ordered By: Emily Margaret on 01-01-2025 Platelet mean volume (Bld) [Entitic vol] 10.0 fL 9.5-13.5 [facility] Platelets Auto (Bld) [#/Vol] Ordered By: Emily Margaret on 01-01-2025 Platelets (Bld) [#/Vol] 240 10 3/uL 150-450 [facility] RBC Auto (Bld) [#/Vol]Ordere d By: Emily Margaret on 01-01-2025 RBC (Bld) [#/Vol] 4.05 10 6/uL Low 4.20-5.40 [facility] Serum or plasma albumin/glob ulin mass ratioOrdered By: Emily Robles on 01-01-2025 Albumin/Globulin [Mass ratio] 0.4 {ratio} [facility] Serum or plasma [id number]-[id number] protein tumor marker measurement (mass/volume)Ordered By: Emily Robles on 01-01-2025 AFP.tumor marker [Mass/Vol] 3.3 ng/mL 0.0-9.2 [facility] Comment on above: [employer] El ectrochemiluminescence Immunoassay(ECLIA)Values obtained with different assay methods or kits cannotbe used interchangeably. Results cannot be interpreted asabsolute evidence of the presence or absence of malignantdisease.This test is not interpretable in females.Performed at: [facility] [employer] [id number] Director: Cm Purcell PhD, Phone: [phone] Serum or plasma anion gap de terminationOrdered By: Emily Robles on 01-01-2025 Anion gap [Moles/Vol] 9.9 mmol/L [facility] Serum or plasma cancer antig en 19-9 measurement (units/volume)Ordered By: Emily Robles on 01-01-2025 Cancer Ag 19-9 Qn 96 [arb'U]/mL Abnormal 0-35 [facility] Comment on above: [employer] El ectrochemiluminescence Immunoassay(ECLIA)Values obtained with different assay methods or kits cannotbe used interchangeably. Results cannot be interpreted asabsolute evidence of the presence or absence of malignantdisease.Performed at: [facility] [employer] [id number] Director: Cm Purcell PhD, Phone: [phone] MOHINI Antinuclear Antibodieson 12-28-2024 Antinuclear Abs, IFA Positive Critically abnormal . [facility] Comment on above: Result Comment: Nega tive <1:80 Borderline 1:80 Positive >1:80 Speckled cytoplasmic fluorescence is present. The antibodies noted in this pattern may be associated with, but not restricted to, primary biliary cirrhosis (PBC), polymyositis and dermatomyositis (PM/DM), and/or systemic lupus erythematosus (SLE). Performed By: #### H CV RX PCR, HAABT, HBSAB, HBCAB, HBSAG, CERULOP, PETH PROFILE, CELIAC, MITOM2, ALPHA PHEN, IGG, MOHINI, SMAB, L-K MICRO, HIV SCREEN, HEMOCHROM, HAAB, HCBIGM #### [facility] , #### ESR, JOLANTA, CRP, TSH3 #### [facility] [address] [place] [address] Homogeneous Pattern 1:640 Normal . [facility] Comment on above: Result Comment: ICAP nomenclature: [id number] Performed By: #### H CV RX PCR, HAABT, HBSAB, HBCAB, HBSAG, CERULOP, PETH PROFILE, CELIAC, MITOM2, ALPHA PHEN, IGG, MOHINI, SMAB, L-K MICRO, HIV SCREEN, HEMOCHROM, HAAB, HCBIGM #### [facility] , #### ESR, JOLANTA, CRP, TSH3 #### [facility] [address] Note 1 Comment Normal . [facility] Comment on above: Result Comment: Mayra bates Potential Disease Association Homogeneous Systemic Lupus Erythematosus, Drug Induced Systemic Lupus Erythematosus, Chronic Autoimmune hepatitis, Juvenile Idiopathic Arthritis Speckled Sjogren Syndrome, Systemic Lupus Erythematosus, Subacute Cutaneous Lupus, Lupus, Congenital Heart Block, Mixed Connective Tissue Disease, Scleroderma-diffuse, Scleroderma-Autoimmune Myositis Overlap Syndrome, Systemic Lupus Lhhlncuefwilr-Kwdrsaobiqi-Lwcuyhqhtw Myositis Overlap Syndrome, Systemic Autoimmune Rheumatic Disease, Undifferentiated Connective Tissue Disease Nucleolar Systemic Sclerosis, Scleroderma-Autoimmune Myositis Overlap Syndrome, Sjogren Syndrome, Raynaud phenomenon, Pulmonary Arterial Hypertension, Systemic Autoimmune Rheumatic Disease, Cancer [employer] Scleroderma-CREST, Limited Cutaneous SSc, Raynaud's Phenomenon, Primary Biliary Cholangitis Nuclear Dot Primary Biliary Cholangitis Nuclear Primary Biliary Cholangitis, Autoimmune Membrane Hepatitis/Liver disease, Systemic Autoimmune Rheumatic Disease, Autoimmune Cytopenias, Linear Scleroderma, Antiphospholipid Syndrome Performed at: - [facility] [place] [id number] Head Chef: Cm Purcell PhD, Phone: [phone] Performed By: #### H CV RX PCR, HAABT, HBSAB, HBCAB, HBSAG, CERULOP, PETH PROFILE, CELIAC, MITOM2, ALPHA PHEN, IGG, MOHINI, SMAB, L-K MICRO, HIV SCREEN, HEMOCHROM, HAAB, HCBIGM #### [facility] , #### ESR, JOLANTA, CRP, TSH3 #### [address] Actin smooth muscle IgG Ab [ Units/volume] in SerumOrdered By: Dimple Caraballo on 12-28-2024 Actin smooth muscle IgG Qn (S) 124 Units High 0-19 [facility] Comment on above: Negative 0 - 19 Weak positive 20 - 30 Moderate to strong positive >30 Actin Antibodies are found in 52-85% of patients with autoimmune hepatitis or chronic active hepatitis and in 22% of patients with primary biliary cirrhosis. Xadkn-0-Ohlojeutuup Phenotyp zaira 12-28-2024 Alpha 1 Anti-Trypsin 121 mg/dL Normal 101-187 [facility] Comment on above: Performed By: #### H CV RX PCR, HAABT, HBSAB, HBCAB, HBSAG, CERULOP, PETH PROFILE, CELIAC, MITOM2, ALPHA PHEN, IGG, MOHINI, SMAB, L-K MICRO, HIV SCREEN, HEMOCHROM, HAAB, HCBIGM #### [facility] , #### ESR, JOLANTA, CRP, TSH3 #### [facility] [address] Phenotype (P1) MZ Normal . [facility] Comment on above: Result Comment: MM Phenotype is considered to be normal , producing normal serum levels of wwbbo-5-omhxdhtr inhibitor and not associated with clinical disease. Associated A1A total serum levels in other phenotypes and their incidence in the general population are shown in the table below. Phenotype Population % function A-1-AT Conc.* Incidence % compared to MM (Typical Range) MM 86.5% 100% (96 - 189) MS 8.0% 86% (83 - 161) MZ 3.9% 61% (60 - 111) FM 0.4% 100% (93 - 191) SZ 0.3% 41% (42 - 75) SS 0.1% 64% (62 - 119) ZZ 0.05% 19% (16 - 38) FS 0.05% 70% (70 - 128) FZ Unknown 46% (44 - 88) FF Unknown Unknown *A-1-AT concentration in the homozygous MM phenotype is taken as the reference normal. Percent deficiency in each phenotype is reported relative to this reference. Ranges used to confirm phenotype. Performed at: - [facility] [id number] Head Chef: Cm Purcell PhD, Phone: [phone] Performed at: [address] [id number] Head Chef: Jacoby Truong MD, Phone: [phone] Performed By: #### H CV RX PCR, HAABT, HBSAB, HBCAB, HBSAG, CERULOP, PETH PROFILE, CELIAC, MITOM2, ALPHA PHEN, IGG, MOHINI, SMAB, L-K MICRO, HIV SCREEN, HEMOCHROM, HAAB, HCBIGM #### [facility] , #### ESR, JOLANTA, CRP, TSH3 #### [facility] [address] Blood or tissue HFE gene mut ations identification by molecular genetics methodOrdered By: Dimple Caraballo on 12-28-2024 HFE gene targeted mutation analysis [employer] Nom (Bld/Tiss) Comment . [facility] Comment on above: Result:c.845G>A (p.C ub844Hic) - Not Detectedc.187C>G (p.Myd60Vtw) - Not Detectedc.193A>T (p.Rrv70Zeh) - Not DetectedNot associated with increased risk to develop clinicalsymptoms of Hereditary Hemochromatosis. In symptomaticindividuals, other causes of iron overload should beevaluated. See Additional Information and Comments.Additional Clinical Information:Hereditary hemochromatosis (HFE related) is an autosomalrecessive iron storage disorder. Patients may have agenetic diagnosis of hereditary hemochromatosis and nevershow clinical symptoms. Clinical symptoms typically appearbetween 40 to 60 years in males and after menopause infemales. Signs and symptoms may include organ damage,primarily in the liver, risk for hepatocellularcarcinoma, diabetes, and heart disease due to ironaccumulation. Life expectancy may be decreased inindividuals who develop cirrhosis. Treatment forclinically symptomatic individuals may includetherapeutic phlebotomy. Liver transplant may be used totreat end stage liver failure. For preventive care,monitoring for iron overload is recommended for patientswho are homozygous for c.845G>A (p.Qsd741Rfj) and have yetto experience clinical symptoms.Comments:The most common HFE variants associated with hereditaryhemochromatosis are c.845G>A (p.Mcn466Kuj), c.187C>G(p.Amz20Tvg), c.193A>T (p.Oue42Phl). While patientshomozygous for c.845G>A (p.Aii614Clq) are the most likelyto present clinical symptoms, less than 10% developclinically significant iron overload with tissue and organdamage.Genetic counseling is recommended to discuss the potentialclinical implications of positive results, as well asrecommendations for testing family members.Genetic Coordinators are available for health careproviders to discuss results at [phone] Details:Three variants analyzed:c.845G>A (p.Ryg185Qwn), commonly referred to as C282Yc.187C>G (p.Kop26Gqm), commonly referred to as H63Dc.193A>T (p.Rtm02Npa), commonly referred to as C73DWtseizi/Limitations:DNA Analysis of the HFE gene (NM_000410.4) was performedby PCR amplification followed by restriction enzymedigestion analyses. Results must be combined with clinicalinformation for the most accurate interpretation. Molecular-based testing is highly accurate, but as in any laboratorytest, diagnostic errors may occur. False positive or falsenegative results may occur for reasons that include geneticvariants, blood transfusions, bone marrow transplantation,somatic or tissue-specific mosaicism, mislabeled samples,or erroneous representation of family relationships.This test was developed and its performancecharacteristics determined by [employer]. It has not beencleared or approved by the Food and Drug Administration.References:Rogerio BR, Maximilian PC, Mushtaq KV, Segundo LW, Chay ;[place] [employer] for the Study of Liver Diseases.Diagnosis and management of hemochromatosis: 2011 practiceguideline by the [place] Association for the Study ofLiver Diseases. Hepatology. 2010;54(1):328-43. doi:10.1002/hep.32022. PMID: 20676563; PMCID: [id number].Sameera G, Kylah P, Lisa MÁRQUEZ, Pierre H, Garfield O,Rafa S, Nathen I, Rodney M, Darren S. [facility] best practiceguidelines for the molecular genetic diagnosis ofhereditary hemochromatosis (HH). Eur J Hum [place]anca. 2016Apr;24(4):479-95. doi: 10.1038/ejhg.2015.128. Epub 2014. PMID: 06113300; PMCID: [id number]. C reactive protein [Mass/vol ume] in Serum or PlasmaOrdered By: Dimple Caraballo on 12-28-2024 CRP [Mass/Vol] 3.2 mg/dL High 0.0-0.5 [facility] C-Reactive Proteinon 025 C-Reactive Protein 3.2 mg/dL High 0.0-0.5 [facility] Comment on above: Performed By: #### H CV RX PCR, HAABT, HBSAB, HBCAB, HBSAG, CERULOP, PETH PROFILE, CELIAC, MITOM2, ALPHA PHEN, IGG, MOHINI, SMAB, L-K MICRO, HIV SCREEN, HEMOCHROM, HAAB, HCBIGM #### [facility] , #### ESR, JOLANTA, CRP, TSH3 #### [address] Calprotectin [Mass/mass] in StoolOrdered By: Dimple Caraballo on 12-28-2024 Calprotectin (Stl) [Mass/Mass] 62 ug/g 0-120 [facility] Comment on above: Concentration Interp retation Follow-Up< 5 - 50 ug/g Normal None>50 -120 ug/g Borderline Re-evaluate in 4-6 weeks >120 ug/g Abnormal Repeat as clinically indicatedPerformed at: [employer] [facility] [employer] [id number] Director: Jacoby Truong MD, Phone: [phone] Calprotectin, Fecalon 2024 Calprotectin, Fecal 62 Normal 0-120 [facility] Comment on above: Result Comment: Conc entration Interpretation Follow-Up < 5 - 50 ug/g Normal None >50 -120 ug/g Borderline Re-evaluate in 4-6 weeks >120 ug/g Abnormal Repeat as clinically indicated Performed at: [email or web address] [place] [address] [place], [place] [id number] Head Chef: Jacoby Truong MD, Phone: [phone] PERFORMED BY: [place] [address] PATHOLOGIST RATE SUPERVISOR ÁNGEL LUNA M.D. Performed By: #### H CV RX PCR, HAABT, HBSAB, HBCAB, HBSAG, CERULOP, PETH PROFILE, CELIAC, MITOM2, ALPHA PHEN, IGG, MOHINI, SMAB, L-K MICRO, HIV SCREEN, HEMOCHROM, HAAB, HCBIGM #### [facility] , #### ESR, JOLANTA, CRP, TSH3 #### [address] Celiacon 12-28-2024 Deamidated Gliadin Abs, IgA 4 Normal 0-19 [facility] Comment on above: Result Comment: Nega tive 0 - 19 Weak Positive 20 - 30 Moderate to Strong Positive >30 Performed By: #### H CV RX PCR, HAABT, HBSAB, HBCAB, HBSAG, CERULOP, PETH PROFILE, CELIAC, MITOM2, ALPHA PHEN, IGG, MOHINI, SMAB, L-K MICRO, HIV SCREEN, HEMOCHROM, HAAB, HCBIGM #### [facility] , #### ESR, JOLANTA, CRP, TSH3 #### [address] Deamidated Gliadin Abs, IgG 2 Normal 0-19 [facility] Comment on above: Result Comment: Nega tive 0 - 19 Weak Positive 20 - 30 Moderate to Strong Positive >30 Performed By: #### H CV RX PCR, HAABT, HBSAB, HBCAB, HBSAG, CERULOP, PETH PROFILE, CELIAC, MITOM2, ALPHA PHEN, IGG, MOHINI, SMAB, L-K MICRO, HIV SCREEN, HEMOCHROM, HAAB, HCBIGM #### [facility] , #### ESR, JOLANTA, CRP, TSH3 #### [address] Endomysial Antibody IgA Negative Normal Negative [facility] Comment on above: Performed By: #### H CV RX PCR, HAABT, HBSAB, HBCAB, HBSAG, CERULOP, PETH PROFILE, CELIAC, MITOM2, ALPHA PHEN, IGG, MOHINI, SMAB, L-K MICRO, HIV SCREEN, HEMOCHROM, HAAB, HCBIGM #### [facility] , #### ESR, JOLANTA, CRP, TSH3 #### [facility] [address] [place] [address] [place] Immunoglobulin A, Qn, Serum 343 mg/dL Normal 64-422 [facility] Comment on above: Result Comment: Perf ormed at: [facility] [address] [id number] Head Chef: Cm Purcell PhD, Phone: [phone] Performed By: #### H CV RX PCR, HAABT, HBSAB, HBCAB, HBSAG, CERULOP, PETH PROFILE, CELIAC, MITOM2, ALPHA PHEN, IGG, MOHINI, SMAB, L-K MICRO, HIV SCREEN, HEMOCHROM, HAAB, HCBIGM #### [facility] , #### ESR, JOLANTA, CRP, TSH3 #### [facility] [address] T-Transglutaminase (tTG) IgA <2 Normal 0-3 [facility] Comment on above: Result Comment: Nega tive 0 - 3 Weak Positive 4 - 10 Positive >10 Tissue Transglutaminase (tTG) has been identified as the endomysial antigen. Studies have demonstr- ated that endomysial IgA antibodies have over 99% specificity for gluten sensitive enteropathy. Performed By: #### H CV RX PCR, HAABT, HBSAB, HBCAB, HBSAG, CERULOP, PETH PROFILE, CELIAC, MITOM2, ALPHA PHEN, IGG, MOHINI, SMAB, L-K MICRO, HIV SCREEN, HEMOCHROM, HAAB, HCBIGM #### [facility] , #### ESR, JOLANTA, CRP, TSH3 #### [facility] [address] [place] [address] [place] T-Transglutaminase (tTG) IgG 10 Normal 0-5 [facility] Comment on above: Result Comment: Nega tive 0 - 5 Weak Positive 6 - 9 Positive >9 Performed By: #### H CV RX PCR, HAABT, HBSAB, HBCAB, HBSAG, CERULOP, PETH PROFILE, CELIAC, MITOM2, ALPHA PHEN, IGG, MOHINI, SMAB, L-K MICRO, HIV SCREEN, HEMOCHROM, HAAB, HCBIGM #### [facility] , #### ESR, JOLANTA, CRP, TSH3 #### [address] Ceruloplasminon 12-28-2024 Ceruloplasmin 30.1 mg/dL Normal 19.0-39.0 [facility] Comment on above: Result Comment: Perf ormed at: - [facility] [address] [id number] Head Chef: Cm Purcell PhD, Phone: [phone] PERFORMED BY: [place] [address] PATHOLOGIST RATE SUPERVISOR ÁNGEL LUNA M.D. Performed By: #### H CV RX PCR, HAABT, HBSAB, HBCAB, HBSAG, CERULOP, PETH PROFILE, CELIAC, MITOM2, ALPHA PHEN, IGG, MOHINI, SMAB, L-K MICRO, HIV SCREEN, HEMOCHROM, HAAB, HCBIGM #### [facility] , #### ESR, JOLANTA, CRP, TSH3 #### [address] Clostridioides difficile tox in B tcdB gene [Presence] in Stool by PARRIS with probe deteOrdered By: Dimple Caraballo on 12-28-2024 C. difficile toxin B tcdB gene PARRIS+probe Ql (Stl) Negative Negative [facility] Comment on above: Testing performed by RT-PCR Clostridium Difficileon 12-08 Clostridium Difficile Negative Normal Negative [facility] Comment on above: Result Comment: Test ing performed by RT-PCR PERFORMED BY: [place] [address] PATHOLOGIST RATE SUPERVISOR ÁNGEL LUNA M.D. Performed By: #### H CV RX PCR, HAABT, HBSAB, HBCAB, HBSAG, CERULOP, PETH PROFILE, CELIAC, MITOM2, ALPHA PHEN, IGG, MOHINI, SMAB, L-K MICRO, HIV SCREEN, HEMOCHROM, HAAB, HCBIGM #### [facility] , #### ESR, JOLANTA, CRP, TSH3 #### [address] Erythrocyte Sedimentation Ra oralia 12-28-2024 ESR (Bld) [Velocity] 130 mm/h High 0-29 [facility] Comment on above: Result Comment: PERF ORMED BY: [place] [address] PATHOLOGIST RATE SUPERVISOR ÁNGEL LUNA M.D. Performed By: #### H CV RX PCR, HAABT, HBSAB, HBCAB, HBSAG, CERULOP, PETH PROFILE, CELIAC, MITOM2, ALPHA PHEN, IGG, MOHINI, SMAB, L-K MICRO, HIV SCREEN, HEMOCHROM, HAAB, HCBIGM #### [facility] , #### ESR, JOLANTA, CRP, TSH3 #### [address] Erythrocyte sedimentation ra te by Photometric methodOrdered By: Imad Asaad on 12-28-2024 ESR Photometric method (Bld) [Velocity] 130 mm/hr High 0-29 [facility] Ferritin [Mass/volume] in Se rum or PlasmaOrdered By: Imad Asaad on 12-28-2024 Ferritin [Mass/Vol] 17.9 ng/mL Normal 11.0-306.8 [facility] Comment on above: Performed By: #### H CV RX PCR, HAABT, HBSAB, HBCAB, HBSAG, CERULOP, PETH PROFILE, CELIAC, MITOM2, ALPHA PHEN, IGG, MOHINI, SMAB, L-K MICRO, HIV SCREEN, HEMOCHROM, HAAB, HCBIGM #### [facility] , #### ESR, JOLANTA, CRP, TSH3 #### [address] HIV 1/O/2 Antigen/Antibodyon 12-28-2024 HIV Screen 4th Generation Non-Reactive Normal Non Reactive [facility] Comment on above: Result Comment: HIV- 1/HIV-2 antibodies and HIV-1 p24 antigen were NOT detected. There is no laboratory evidence of HIV infection. HIV Negative Performed at: [facility] [id number] Head Chef: Cm Purcell PhD, Phone: [phone] Performed By: #### H CV RX PCR, HAABT, HBSAB, HBCAB, HBSAG, CERULOP, PETH PROFILE, CELIAC, MITOM2, ALPHA PHEN, IGG, MOHINI, SMAB, L-K MICRO, HIV SCREEN, HEMOCHROM, HAAB, HCBIGM #### [facility] , #### ESR, JOLANTA, CRP, TSH3 #### [address] Hep C Ab wRfx to Qnt PCRon 12-28-2024 Hepatitis C Virus Antibody Non-Reactive Normal Non Reactive [facility] Comment on above: Performed By: #### H CV RX PCR, HAABT, HBSAB, HBCAB, HBSAG, CERULOP, PETH PROFILE, CELIAC, MITOM2, ALPHA PHEN, IGG, MOHINI, SMAB, L-K MICRO, HIV SCREEN, HEMOCHROM, HAAB, HCBIGM #### [facility] , #### ESR, JOLANTA, CRP, TSH3 #### [address] Interpretation Hepatitis C Comment Normal . [facility] Comment on above: Result Comment: Not infected with HCV unless early or acute infection is suspected (which may be delayed in an immunocompromised individual), or other evidence exists to indicate HCV infection. Performed By: #### H CV RX PCR, HAABT, HBSAB, HBCAB, HBSAG, CERULOP, PETH PROFILE, CELIAC, MITOM2, ALPHA PHEN, IGG, MOHINI, SMAB, L-K MICRO, HIV SCREEN, HEMOCHROM, HAAB, HCBIGM #### [facility] , #### ESR, JOLANTA, CRP, TSH3 #### [address] Hepatitis A Antibody IgMon 12-28-2024 Hepatitis A Antibody IgM Negative Normal Negative [facility] Comment on above: Result Comment: A ne gative anti-HAV IgM result suggests no recent or current HAV infection. Performed By: #### H CV RX PCR, HAABT, HBSAB, HBCAB, HBSAG, CERULOP, PETH PROFILE, CELIAC, MITOM2, ALPHA PHEN, IGG, MOHINI, SMAB, L-K MICRO, HIV SCREEN, HEMOCHROM, HAAB, HCBIGM #### [facility] , #### ESR, JOLANTA, CRP, TSH3 #### [facility] [address] Hepatitis A Antibody Totalon 12-28-2024 Hepatitis A Antibody Total Negative Normal Negative [facility] Comment on above: Result Comment: Comm ent: The HAV total antibody assay detects both IgG and IgM but does not differentiate between them. A negative result suggests susceptibility to infection. A positive result could be due to vaccination, previously resolved infection or active infection. Testing for HAV IgM should be performed if active HAV infection is suspected. [facility] offers profiles that will automatically reflex positive HAV total antibody results to IgM (e.g., panel #[id number] HAV Antibody w/ Rfx). Performed By: #### H CV RX PCR, HAABT, HBSAB, HBCAB, HBSAG, CERULOP, PETH PROFILE, CELIAC, MITOM2, ALPHA PHEN, IGG, MOHINI, SMAB, L-K MICRO, HIV SCREEN, HEMOCHROM, HAAB, HCBIGM #### [facility] , #### ESR, JOLANTA, CRP, TSH3 #### [facility] [address] Hepatitis A virus Ab [Presen ce] in Serum by ImmunoassayOrdered By: Dimple Caraballo on 12-28-2024 HAV Ab IA Ql (S) Negative Negative [facility] Comment on above: Comment: The HAV tot al antibody assay detects both IgG andIgM but does not differentiate between them. A negativeresult suggests susceptibility to infection. A positiveresult could be due to vaccination, previously resolvedinfection or active infection. Testing for HAV IgM shouldbe performed if active HAV infection is suspected. [facility] that will automatically reflex positive HAVtotal antibody results to IgM (e.g., panel #[id number] HAVAntibody w/ Rfx). Hepatitis B Core Antibodyon 12-28-2024 Hepatitis B Core Antibody Negative Normal Negative [facility] Comment on above: Performed By: #### H CV RX PCR, HAABT, HBSAB, HBCAB, HBSAG, CERULOP, PETH PROFILE, CELIAC, MITOM2, ALPHA PHEN, IGG, MOHINI, SMAB, L-K MICRO, HIV SCREEN, HEMOCHROM, HAAB, HCBIGM #### [facility] , #### ESR, JOLANTA, CRP, TSH3 #### [facility] [address] Hepatitis B Core Antibody Ig Mon 12-28-2024 Hepatitis B Core Antibody IgM Negative Normal Negative [facility] Comment on above: Result Comment: Perf ormed at: [facility] [address] [id number] Head Chef: Cm Purcell PhD, Phone: [phone] Performed By: #### H CV RX PCR, HAABT, HBSAB, HBCAB, HBSAG, CERULOP, PETH PROFILE, CELIAC, MITOM2, ALPHA PHEN, IGG, MOHINI, SMAB, L-K MICRO, HIV SCREEN, HEMOCHROM, HAAB, HCBIGM #### [facility] , #### ESR, JOLANTA, CRP, TSH3 #### [facility] [address] Hepatitis B Surface Antibody on 12-28-2024 Hepatitis B Surface Antibody Non-Reactive Normal . [facility] Comment on above: Result Comment: Non Reactive: Not immune to HBV infection. Equivocal: Unable to determine if anti-HBs is present at levels consistent with immunity. Reactive: Anti-HBs concentration detected at greater than 10 mIU/mL. Individual is considered to be immune to infection with HBV. Performed By: #### H CV RX PCR, HAABT, HBSAB, HBCAB, HBSAG, CERULOP, PETH PROFILE, CELIAC, MITOM2, ALPHA PHEN, IGG, MOHINI, SMAB, L-K MICRO, HIV SCREEN, HEMOCHROM, HAAB, HCBIGM #### [facility] , #### ESR, JOLANTA, CRP, TSH3 #### [facility] [address] Hepatitis B Surface Antigeno n 12-28-2024 HBsAg Screen Negative Normal Negative [facility] Comment on above: Result Comment: PERF ORMED BY: [facility] [address] [facility] [place] [address] PATHOLOGIST RATE SUPERVISOR ÁNGEL LUNA M.D. Performed By: #### H CV RX PCR, HAABT, HBSAB, HBCAB, HBSAG, CERULOP, PETH PROFILE, CELIAC, MITOM2, ALPHA PHEN, IGG, MOHINI, SMAB, L-K MICRO, HIV SCREEN, HEMOCHROM, HAAB, HCBIGM #### [facility] , #### ESR, JOLANTA, CRP, TSH3 #### [facility] [address] Hepatitis C virus IgG Ab [Pr esence] in Serum or Plasma by ImmunoassayOrdered By: Imad Asaad on 12-28-2024 HCV IgG IA Ql Non-Reactive Non Reactive [facility] Hereditary Hemochromatosis,D NAon 12-28-2024 Hereditary Hemochromatosis Comment Normal . [facility] Comment on above: Result Comment: Resu lt: c.845G>A (p.Zna057Xas) - Not Detected c.187C>G (p.Jhh82Dfc) - Not Detected c.193A>T (p.Gsi54Kpn) - Not Detected Not associated with increased risk to develop clinical symptoms of Hereditary Hemochromatosis. In symptomatic individuals, other causes of iron overload should be evaluated. See Additional Information and Comments. Additional Clinical Information: Hereditary hemochromatosis (HFE related) is an autosomal recessive iron storage disorder. Patients may have a genetic diagnosis of hereditary hemochromatosis and never show clinical symptoms. Clinical symptoms typically appear between 40 to 60 years in males and after menopause in females. Signs and symptoms may include organ damage, primarily in the liver, risk for hepatocellular carcinoma, diabetes, and heart disease due to iron accumulation. Life expectancy may be decreased in individuals who develop cirrhosis. Treatment for clinically symptomatic individuals may include therapeutic phlebotomy. Liver transplant may be used to treat end stage liver failure. For preventive care, monitoring for iron overload is recommended for patients who are homozygous for c.845G>A (p.Qic262Ykz) and have yet to experience clinical symptoms. Comments: The most common HFE variants associated with hereditary hemochromatosis are c.845G>A (p.Rso601Msi), c.187C>G (p.Trx63Ntz), c.193A>T (p.Szu28Suz). While patients homozygous for c.845G>A (p.Fdr352Gkc) are the most likely to present clinical symptoms, less than 10% develop clinically significant iron overload with tissue and organ damage. Genetic counseling is recommended to discuss the potential clinical implications of positive results, as well as recommendations for testing family members. Genetic Coordinators are available for health care providers to discuss results at [phone] Test Details: Three variants analyzed: c.845G>A (p.Vfa050Ynm), commonly referred to as C282Y c.187C>G (p.Fde26Eph), commonly referred to as H63D c.193A>T (p.Kax27Xmy), commonly referred to as S65C Methods/Limitations: DNA Analysis of the HFE gene (NM_000410.4) was performed by PCR amplification followed by restriction enzyme digestion analyses. Results must be combined with clinical information for the most accurate interpretation. Molecular- based testing is highly accurate, but as in any laboratory test, diagnostic errors may occur. False positive or false negative results may occur for reasons that include genetic variants, blood transfusions, bone marrow transplantation, somatic or tissue-specific mosaicism, mislabeled samples, or erroneous representation of family relationships. This test was developed and its performance characteristics determined by [employer]. It has not been cleared or approved by the Food and Drug Administration. References: Rogerio BR, Maximilian PC, Mushtaq KV, Segundo LW, Chay ; [place] [employer] Study of Liver Diseases. Diagnosis and management of hemochromatosis: 2011 practice guideline by the [place] [employer] Liver Diseases. Hepatology. 2011 Nov;54(1):328-43. doi: 10.1002/hep.72883. PMID: 30761137; PMCID: [id number]. Sameera Medrano, Lisa Orlando DW, Pierre H, Garfield O, Rafa S, Nathen I, Rodney M, Darren Paul. [employer] best practice guidelines for the molecular genetic diagnosis of hereditary hemochromatosis (HH). Eur J Hum [place]anca. 2016 Aug;24(4):479-35. doi: 10.1038/ejhg.2015.128. Epub 2014Nov 13. PMID: 07829465; PMCID: [id number]. Performed By: #### H CV RX PCR, HAABT, HBSAB, HBCAB, HBSAG, CERULOP, PETH PROFILE, CELIAC, MITOM2, ALPHA PHEN, IGG, MOHINI, SMAB, L-K MICRO, HIV SCREEN, HEMOCHROM, HAAB, HCBIGM #### [facility] , #### ESR, JOLANTA, CRP, TSH3 #### [address] Reviewed by: Comment Normal . [facility] Comment on above: Result Comment: Tech nical Component performed at [employer] [place] Professional Component performed by: Nela Pierce, PhD, [facility] [id number], [facility], [address] [place] [address] Performed at: - [facility] [place] [address], [place], [place] [id number] Head Chef: Cristina Sheehan [facility], Phone: [phone] PERFORMED BY: [place] [address] PATHOLOGIST RATE SUPERVISOR ÁNGEL LUNA M.D. Performed By: #### H CV RX PCR, HAABT, HBSAB, HBCAB, HBSAG, CERULOP, PETH PROFILE, CELIAC, MITOM2, ALPHA PHEN, IGG, MOHINI, SMAB, L-K MICRO, HIV SCREEN, HEMOCHROM, HAAB, HCBIGM #### [facility] , #### ESR, JOLANTA, CRP, TSH3 #### [address] Immunoglobulin Oscar 5 Immunoglobulin G 6028 mg/dL Normal [id number] [facility] Comment on above: Result Comment: Resu lts confirmed on dilution. Performed at: [address] [id number] Head Chef: Cm Purcell PhD, Phone: [phone] Performed By: #### H CV RX PCR, HAABT, HBSAB, HBCAB, HBSAG, CERULOP, PETH PROFILE, CELIAC, MITOM2, ALPHA PHEN, IGG, MOHINI, SMAB, L-K MICRO, HIV SCREEN, HEMOCHROM, HAAB, HCBIGM #### [facility] , #### ESR, JOLANTA, CRP, TSH3 #### [facility] [address] Liver-Kidney Microsomal Abon 12-28-2024 Liver-Kidney Microsomal Ab 1.6 Normal 0.0-20.0 [facility] Comment on above: Result Comment: Nega tive 0.0 - 20.0 Equivocal 20.1 - 24.9 Positive >24.9 LKM type 1 antibodies are detected in patients with autoimmune hepatitis type 2 and in up to 8% of patients with chronic HCV infection. Performed at: [address] [id number] Head Chef: Cm Purcell PhD, Phone: [phone] Performed By: #### H CV RX PCR, HAABT, HBSAB, HBCAB, HBSAG, CERULOP, PETH PROFILE, CELIAC, MITOM2, ALPHA PHEN, IGG, MOHINI, SMAB, L-K MICRO, HIV SCREEN, HEMOCHROM, HAAB, HCBIGM #### [facility] , #### ESR, JOLANTA, CRP, TSH3 #### [facility] [address] [place] [address] [place] Mitochondrial (M2) Antibodyo n 12-28-2024 Mitochondrial (M2) Antibody 64.3 Normal 0.0-20.0 [facility] Comment on above: Result Comment: Nega tive 0.0 - 20.0 Equivocal 20.1 - 24.9 Positive >24.9 Mitochondrial (M2) Antibodies are found in 90-96% of patients with primary biliary cirrhosis. Performed at: [facility] [address] [place], [place] [id number] Head Chef: Cm Purcell PhD, Phone: [phone] Performed By: #### H CV RX PCR, HAABT, HBSAB, HBCAB, HBSAG, CERULOP, PETH PROFILE, CELIAC, MITOM2, ALPHA PHEN, IGG, MOHINI, SMAB, L-K MICRO, HIV SCREEN, HEMOCHROM, HAAB, HCBIGM #### [facility] , #### ESR, JOLANTA, CRP, TSH3 #### [facility] [address] No Panel InformationOrdered By: Dimple Caraballo on 12-28-2024 Anti-Nuclear Antibody Comment 2 Comment . [facility] Comment on above: Pattern Potential Di sease Association Homogeneous Systemic Lupus Erythematosus, Drug Induced Systemic Lupus Erythematosus, Chronic Autoimmune hepatitis, Juvenile Idiopathic Arthritis Speckled Sjogren Syndrome, Systemic Lupus Erythematosus, Subacute Cutaneous Lupus, Lupus, Congenital Heart Block, Mixed Connective Tissue Disease, Scleroderma-diffuse, Scleroderma-Autoimmune Myositis Overlap Syndrome, Systemic Lupus Dqaavbzcgsrql-Xefdrudwywx-Kqmwvmjfae Myositis Overlap Syndrome, Systemic Autoimmune Rheumatic Disease, Undifferentiated Connective Tissue Disease Nucleolar Systemic Sclerosis, Scleroderma-Autoimmune Myositis Overlap Syndrome, Sjogren Syndrome, Raynaud phenomenon, Pulmonary Arterial Hypertension, Systemic Autoimmune Rheumatic Disease, Cancer Centromere Scleroderma-CREST, Limited Cutaneous SSc, Raynaud's Phenomenon, Primary Biliary Cholangitis Nuclear Dot Primary Biliary Cholangitis Nuclear Primary Biliary Cholangitis, AutoimmuneMembrane Hepatitis/Liver disease, Systemic Autoimmune Rheumatic Disease, Autoimmune Cytopenias, Linear Scleroderma, Antiphospholipid Syndrome Performed at: - [address] [id number] Director: Cm Purcell PhD, Phone: [phone] Hemochromatosis Note Comment . [facility] Comment on above: Technical Component performed at [facility] RTPProfessional Component performed by:Nela Pierce, PhD, [id number], [facility], [address] [facility] [id number] at: [facility] LabProxlyrp [id number] [employer], [facility], [place] [id number] Director: Cristina Sheehan [facility], Phone: [phone] Hepatitis C Interpretation Comment . [facility] Comment on above: Not infected with HC V unless early or acute infection issuspected (which may be delayed in an immunocompromisedindividual), or other evidence exists to indicate HCVinfection. Phosphatidylethanol Profileo n 12-28-2024 Phosphatidylethanol (PEth) Qnt 58 ng/mL Normal . [facility] Comment on above: Result Comment: Anal yzed compound: PEth 16:0/18:1. 3-zrgeeeqig-2-djeogr-me-dhgxbeh-3-phosphoethanol. Analysis performed by Liquid Chromatography with Tandem Mass Spectrometry (LC/MS/MS). Detection limit: 20 ng/mL PEth levels in excess of 20 ng/mL are considered evidence of moderate to heavy ethanol consumption. However, the Center for Substance Abuse Treatment (CSAT) advises caution in interpretation and use of biomarkers alone to assess alcohol use. Results should be interpreted in the context of all available clinical and behavioral information. Reference: Substance Abuse and Mental Health Services Administration (2012). The Role of Biomarkers in the Treatment of Alcohol Use Disorders , 2012 Revision. Advisory, Volume 11, Issue 2. This test was developed and its performance characteristics determined by [employer]. It has not been cleared or approved by the Food and Drug Administration. Performed at: [facility] [address] [id number] Head Chef: Maryanne Zaidi [facility], Phone: [phone] PERFORMED BY: [place] [address] PATHOLOGIST RATE SUPERVISOR ÁNGEL LUNA M.D. Performed By: #### H CV RX PCR, HAABT, HBSAB, HBCAB, HBSAG, CERULOP, PETH PROFILE, CELIAC, MITOM2, ALPHA PHEN, IGG, MOHINI, SMAB, L-K MICRO, HIV SCREEN, HEMOCHROM, HAAB, HCBIGM #### [facility] , #### ESR, JOLANTA, CRP, TSH3 #### [address] Phosphatidylethanol (PEth) Scn Positive Critically abnormal . [facility] Comment on above: Performed By: #### H CV RX PCR, HAABT, HBSAB, HBCAB, HBSAG, CERULOP, PETH PROFILE, CELIAC, MITOM2, ALPHA PHEN, IGG, MOHINI, SMAB, L-K MICRO, HIV SCREEN, HEMOCHROM, HAAB, HCBIGM #### [facility] , #### ESR, JOLANTA, CRP, TSH3 #### [address] Phosphatidylethanol [Mass/vo lume] in BloodOrdered By: Dimple Caraballo on 12-28-2024 Phosphatidylethanol (Bld) [Mass/Vol] 58 ng/mL . [facility] Comment on above: Analyzed compound: P Eth 16:0/18:1. 2-reislujgw-1-ljwjrt-gm-jfiugwm-3-phosphoethanol.Analysis performed by Liquid Chromatography withTandem Mass Spectrometry (LC/MS/MS).Detection limit: 20 ng/mLPEth levels in excess of 20 ng/mL are considered evidenceof moderate to heavy ethanol consumption. However,the Center for Substance Abuse Treatment (CSAT) advisescaution in interpretation and use of biomarkers aloneto assess alcohol use. Results should be interpretedin the context of all available clinical and behavioralinformation.Reference: Substance Abuse and Mental Health Services Administration (2012). The Role of Biomarkers in the Treatment of Alcohol Use Disorders , 2012 Revision. Advisory, Volume 11, Issue 2.This test was developed and its performance characteristicsdetermined by [employer]. It has not been cleared or approvedby the Food and Drug Administration.Performed at: [facility] [address] [id number] Director: Maryanne Zaidi [facility], Phone: [phone] Phosphatidylethanol [Presenc e] in Blood by Screen methodOrdered By: Dimple Caraballo on 12-28-2024 Phosphatidylethanol Screen Ql (Bld) Positive Abnormal . [facility] Serum gliadin peptide IgA an tibody assay (units/volume)Ordered By: Dimple Caraballo on 12-28-2024 Gliadin peptide IgA Qn (S) 4 units 0- [facility] Comment on above: Negative 0 - 19 Weak Positive 20 - 30 Moderate to Strong Positive >30 Serum gliadin peptide IgG an tibody assay (units/volume)Ordered By: Dimple Caraballo on 12-28-2024 Gliadin peptide IgG Qn (S) 2 units 0-19 [facility] Comment on above: Negative 0 - 19 Weak Positive 20 - 30 Moderate to Strong Positive >30 Serum hepatitis B virus surf emmett antibody detectionOrdered By: Dimple Caraballo 12-28-2024 HBV surface Ab Ql (S) Non-Reactive . [facility] Comment on above: Non Reactive: Not im mune to HBV infection. Equivocal: Unable to determine if anti-HBs is present at levels consistent with immunity. Reactive: Anti-HBs concentration detected at greater than 10 mIU/mL. Individual is considered to be immune to infection with HBV. Serum homogeneous pattern an tinuclear antibody (MOHINI) titerOrdered By: Imad Asaad on 12-28-2024 Homogenous nuclear Ab pattern (S) [Titer] 1:640 High . [facility] Comment on above: ICAP nomenclature: A C-1 Serum mitochondria M2 IgG an tibody assay (units/volume)Ordered By: Imad Asaad on 12-28-2024 Mitochondria M2 IgG Qn (S) 64.3 Units High 0.0-20.0 [facility] Comment on above: Negative 0.0 - 20.0 Equivocal 20.1 - 24.9 Positive >24.9Mitochondrial (M2) Antibodies are found in 90-96% ofpatients with primary biliary cirrhosis.Performed at: [facility] [address] [id number] Director: Cm Purcell PhD, Phone: [phone] Serum nuclear antibody titer Ordered By: Imad Asaad on 12-28-2024 Nuclear Ab (S) [Titer] Positive Abnormal . [facility] Comment on above: Negative <1:80 Borde rline 1:80 Positive >1:80Speckled cytoplasmic fluorescence is present. Theantibodies noted in this pattern may be associated with,but not restricted to, primary biliary cirrhosis (PBC),polymyositis and dermatomyositis (PM/DM), and/or systemiclupus erythematosus (SLE). Serum or plasma IgA measurem ent (mass/volume)Ordered By: Imad Asaad on 12-28-2024 IgA [Mass/Vol] 343 mg/dL 64-422 [facility] Comment on above: Performed at: [employer] [address] [id number] Director: Cm Purcell PhD, Phone: [phone] Serum or plasma IgG measurem ent (mass/volume)Ordered By: Imad Asaad on 12-28-2024 IgG [Mass/Vol] 6028 mg/dL High [phone] [facility] Comment on above: Results confirmed on dilution.Performed at: [facility] [address] [id number] Director: Cm Purcell PhD, Phone: [phone] Serum or plasma alpha 1 anti trypsin measurement (mass/volume)Ordered By: Dimple Caraballo on 12-28-2024 Alpha 1 antitrypsin [Mass/Vol] 121 mg/dL 101-187 [facility] Serum or plasma alpha 1 anti trypsin phenotyping identification by immunofixationOrdered By: Dimple Caraballo on 12-28-2024 Alpha 1 antitrypsin phenotyping Immunofixation Nom Mz . [facility] Comment on above: MM Phenotype is co nsidered to be normal , producingnormal serum levels of wxxyf-0-gaalumqb inhibitor andnot associated with clinical disease. Associated J2Mwplvq serum levels in other phenotypes and theirincidence in the general population are shown in thetable below.Phenotype Population % function A-1-AT Conc.* Incidence % compared to MM (Typical Range) MM 86.5% 100% (96 - 189) MS 8.0% 86% (83 - 161) MZ 3.9% 61% (60 - 111) FM 0.4% 100% (93 - 191) SZ 0.3% 41% (42 - 75) SS 0.1% 64% (62 - 119) ZZ 0.05% 19% (16 - 38) FS 0.05% 70% (70 - 128) FZ Unknown 46% (44 - 88) FF Unknown Unknown*A-1-AT concentration in the homozygous MM phenotype is taken as the reference normal. Percent deficiency in each phenotype is reported relative to this reference. Ranges used to confirm phenotype.Performed at: [facility] [address] [id number] Director: Cm Purcell PhD, Phone: [phone] at: [facility] [employer] [id number] Director: Jacoby Truong MD, Phone: [phone] Serum or plasma ceruloplasmi n measurement (mass/volume)Ordered By: Dimple Caraballo on 12-28-2024 Ceruloplasmin [Mass/Vol] 30.1 mg/dL 19.0-39.0 [facility] Comment on above: Performed at: [employer] [facility] [address] [place] [id number] Director: Cm Purcell PhD, Phone: [phone] Serum or plasma hepatitis B virus surface antigen detection by immunoassayOrdered By: omega Asaomega on 12-28-2024 HBV surface Ag IA Ql Negative Negative [facility] Serum or plasma lipoprotein a measurement (moles/volume)Ordered By: [employer] Asaomega on 12-28-2024 Lipoprotein a [Moles/Vol] 1.6 Units 0.0-20.0 [facility] Comment on above: Negative 0.0 - 20.0 Equivocal 20.1 - 24.9 Positive >24.9LKM type 1 antibodies are detected in patients withautoimmune hepatitis type 2 and in up to 8% ofpatients with chronic HCV infection.Performed at: [employer] [facility] [address] [id number] Director: Cm Purcell PhD, Phone: [phone] Serum tissue transglutaminas e (tTG) IgA antibody assay (units/volume)Ordered By: [email or web address] Asaad on 12-28-2024 tTG IgA Qn (S) <2 U/mL 0-3 [facility] Comment on above: Negative 0 - 3 Weak Positive 4 - 10 Positive >10 Tissue Transglutaminase (tTG) has been identified as the endomysial antigen. Studies have demonstr- ated that endomysial IgA antibodies have over 99% specificity for gluten sensitive enteropathy. Serum tissue transglutaminas e (tTG) IgG antibody assay (units/volume)Ordered By: Imad Asaad on 12-28-2024 tTG IgG Qn (S) 10 U/mL High 0-5 [facility] Comment on above: Negative 0 - 5 Weak Positive 6 - 9 Positive >9 Smooth Muscle Antibodyon Smooth Muscle Antibody 124 Normal 0-19 [facility] Comment on above: Result Comment: Nega tive 0 - 19 Weak positive 20 - 30 Moderate to strong positive >30 Actin Antibodies are found in 52-85% of patients with autoimmune hepatitis or chronic active hepatitis and in 22% of patients with primary biliary cirrhosis. Performed By: #### H CV RX PCR, HAABT, HBSAB, HBCAB, HBSAG, CERULOP, PETH PROFILE, CELIAC, MITOM2, ALPHA PHEN, IGG, MOHINI, SMAB, L-K MICRO, HIV SCREEN, HEMOCHROM, HAAB, HCBIGM #### [facility] , #### ESR, JOLANTA, CRP, TSH3 #### [address] Thyrotropin [Units/volume] i n Serum or PlasmaOrdered By: Dimple Caraballo on 12-28-2024 TSH Qn 8.28 m[IU]/L High 0.45-5.33 [facility] Comment on above: Result Comment: PERF ORMED BY: [place] [address] PATHOLOGIST RATE SUPERVISOR ÁNGEL LUNA M.D. Performed By: #### H CV RX PCR, HAABT, HBSAB, HBCAB, HBSAG, CERULOP, PETH PROFILE, CELIAC, MITOM2, ALPHA PHEN, IGG, MOHINI, SMAB, L-K MICRO, HIV SCREEN, HEMOCHROM, HAAB, HCBIGM #### [facility] , #### ESR, JOLANTA, CRP, TSH3 #### [address] UROVYSION(TM) FOR BLADDERon 12-25-2024 UROVYSION FOR BLADDER CANCER SEE COMMENTS Normal [facility] Comment on above: Order Comment: Pre-o p diagnosis: Encounter for follow-up surveillance of bladder cancer [Z08, Z85.51] Result Comment: Test Result Flag Unit RefValue ------- UroVysion (R) for Bladder Cancer Result Summary Suspicious Result SEE COMMENTS Scanning revealed greater than or equal to 4 cells with gains of two or more chromosomes 3, 7 or 17. In 100 consecutive non-inflammatory cells, 4% were abnormal. Interpretation SEE COMMENTS These findings are suspicious but not diagnostic for urothelial carcinoma or other tumor involving the genitourinary tract. In the absence of a clinically detectable tumor, close follow up with FISH is recommended. ADDITIONAL INFORMATION Fluorescence in situ hybridization (FISH) with centromere probes for chromosomes 3 (D3Z1), 7(D7Z1), 17(D17Z1), and a locus specific probe for 9p21 ([employer] [place], [place]). This test has been modified from the hot dip tinning supervisor's instructions. Its performance characteristics were determined by [facility] in a manner consistent with CLIA requirements. This test has not been cleared or approved by the U.S. Food and Drug Administration. Reason for Referral Evaluate for urothelial carcinoma. Specimen Varies Source cystoscope Released By Gillian Alfonso M.D. Test Performed by: [place] [address] Head Chef: Romain Campos Ph.D.; CLIA# [id number] Performed By: #### U RVY #### [facility] ([facility]) [address] [place] [address] abdomen pelvis w [facility] [place] [address] CT Scan Report Signed Patient: Yaa Duggan MR#: [id number] : 1950 Acct:[id number] Age/Sex: 74 / F ADM Date: 12/11/24 Loc: CT Room: Type: [facility] Attending Dr: Kate Prado MD Copies to: Kate Prado MD Ordering Provider: Kate Prado MD Date of Service: 12/11/24 CT/CT abdomen pelvis w con: K86.89 - Other specified diseases of pancreas CT ABDOMEN AND PELVIS WITH INTRAVENOUS CONTRAST: CLINICAL HISTORY: Weakness fatigue right-sided abdominal pain COMPARISON: None TECHNIQUE: Spiral images were obtained through the abdomen and pelvis following the administration of intravenous contrast. This CT exam was performed using one or more following dose reduction techniques: Automated exposure control, adjustment of the mA and/or kV according to patient size, or use of iterative reconstruction technique. FINDINGS: Lung Bases: [Small left-sided pleural effusion. Bibasilar atelectasis/scarring. Calcified granuloma left lower lobe] Organs:Cirrhotic appearing liver. No suspicious liver lesion. Portal vein appears patent. Gallbladder has been removed with what appears to be fluid/inflammatory changes involving the gallbladder fossa. No significant CBD dilatation. Pancreas appears unremarkable. Spleen demonstrates granulomas. Adrenal glands appear unremarkable. No enhancing renal mass or hydronephrosis. Aorta appears normal in caliber. GI: Stomach is grossly unremarkable. Small bowel appears nondilated. There is questionable wall thickening and surrounding inflammatory changes involving the second portion of the duodenum. No obstruction is seen. Colonic diverticulosis.[ Pelvis:[Urinary bladder is distended to the level of L4. A focal area of dependent low density is seen within the urinary bladder lumen. Uterus has been removed.] Peritoneum/Retroperitoneum: Trace ascites. No free air. No lymphadenopathy involving the right upper quadrant. Abd wall/Bones:Abdominal wall demonstrates no acute findings. Osseous structures demonstrate degenerative change.[ CT/CT abdomen pelvis w con IMPRESSION: Cirrhotic appearing liver without mass. There is presumed reactive right upper quadrant lymphadenopathy. There appears be inflammatory changes in the region of the gallbladder fossa extending along the second portion duodenum with wall thickening involving the second portion of duodenum. Underlying duodenitis/ulcer disease cannot BE excluded. Correlation with endoscopy is suggested. Trace ascites. Urinary bladder is distended to the level of L4 with a focal area of dependent low density seen within urinary bladder lumen. Urinary retention cannot BE excluded. Further evaluation of the potential low-density structure by ultrasound is suggested. Small left-sided pleural effusion. Colonic diverticulosis. Impression dictated by: Jersey Warner Jr., D.OHeriberto 12/11/2024 2:39 PM Dictation Location: [place] [address] Transcribed By: [facility] 12/11/24 143 Dictated By: Jersey Warner Jr, DO 12/11/24 1433 Signed By: 12/11/24 1439 Normal [facility] Basophils Auto (Bld) [#/Vol] Ordered By: Kate Prado on 11-19-2024 Basophils (Bld) [#/Vol] 0.0 10 3/uL 0.0-0.1 [facility] Basophils/100 WBC Auto (Bld) Ordered By: Kate Prado on 11-19-2024 Basophils/100 WBC (Bld) 0.2 % 0.2-2.0 [facility] Eosinophils/100 WBC Auto (Bl d)Ordered By: Kate Prado on 11-19-2024 Eosinophils/100 WBC (Bld) 0.8 % Low 0.9-7.0 [facility] Erythrocyte distribution wid th Auto (RBC) [Ratio]Ordered By: Kate Prado on 11-19-2024 Erythrocyte distribution width (RBC) [Ratio] 16.7 % High 11.0-15.0 [facility] Estimated glomerular filtrat ion rate (GFR) non- AmericanOrdered By: Kate Prado on 11-19-2024 GFR/1.73 sq M.predicted among non-blacks MDRD (S/P/Bld) [Vol rate/Area] 38 mL/min/{1.73_m2} Low >=60 mL/min/1.7 3m 2 [facility] Globulin Calc (S) [Mass/Vol] Ordered By: Kate Prado on 11-19-2024 Globulin (S) [Mass/Vol] 7.3 g/dL [facility] Hematocrit Auto (Bld) [Volum e fraction]Ordered By: Kate Prado on 11-19-2024 Hematocrit (Bld) [Volume fraction] 33.6 % Low 36.0-48.0 [facility] Hemoglobin [Mass/volume] in BloodOrdered By: Kate Prado on 11-19-2024 Hemoglobin (Bld) [Mass/Vol] 10.6 g/dL Low 12.0-16.0 [facility] Laboratory - Chemistry and C hemistry - challengeOrdered By: Kate Prado on 11-19-2024 Albumin [Mass/Vol] 3.0 g/dL Low 3.4-5.0 [facility] ALP [Catalytic activity/Vol] 198 U/L High 46-116 [facility] ALT [Catalytic activity/Vol] 50 U/L 14-59 [facility] AST [Catalytic activity/Vol] 107 U/L High 15-37 [facility] Bilirubin [Mass/Vol] 0.8 mg/dL 0.2-1.0 [facility] Calcium [Mass/Vol] 8.1 mg/dL Low 8.5-10.1 [facility] Chloride [Moles/Vol] 104 mmol/L 98-107 [facility] CO2 [Moles/Vol] 24.6 mmol/L 21.0-32.0 [facility] Cobalamin (Vitamin B12) [Mass/Vol] 378 pg/mL 232-1245 [facility] Comment on above: Performed at: [facility] [employer] [address] [id number] Director: Cm Purcell PhD, Phone: [phone] Creatinine [Mass/Vol] 1.38 mg/dL High 0.55-1.02 [facility] Free T4 [Mass/Vol] 1.74 ng/dL High 0.76-1.46 [facility] GFR/1.73 sq M.predicted MDRD (S/P/Bld) [Vol rate/Area] 46 mL/min/{1.73_m2} Low >=60 mL/min/1.7 3m 2 [facility] Glucose [Mass/Vol] 116 mg/dL High 74-106 [facility] Potassium [Moles/Vol] 4.2 mmol/L 3.5-5.1 [facility] Protein [Mass/Vol] 10.3 g/dL High 6.4-8.2 [facility] Sodium [Moles/Vol] 138 mmol/L 136-145 [facility] TSH Qn 4.811 m[IU]/L High 0.358-3.74 0 [facility] Urea nitrogen [Mass/Vol] 22.0 mg/dL High 7.0-18.0 [facility] Urea nitrogen/Creatinine [Mass ratio] 15.9 mg/mg [facility] Laboratory - Hematology and Cell countsOrdered By: Kate Prado on 11-19-2024 Immature granulocytes/100 WBC (Bld) 0.3 % 0.0-0.5 [facility] Leukocytes [#/volume] correc dinesh for nucleated erythrocytes in Blood by Automated counOrdered By: Kate Prado on 11-19-2024 WBC corrected for nucl RBC Auto (Bld) [#/Vol] 6.3 10 3/uL 4.0-11.0 [facility] Lymphocytes Auto (Bld) [#/Vo l]Ordered By: Kate Prado on 11-19-2024 Lymphocytes (Bld) [#/Vol] 1.9 10 3/uL 1.2-3.8 [facility] Lymphocytes/100 WBC Auto (Bl d)Ordered By: Kate Prado on 11-19-2024 Lymphocytes/100 WBC (Bld) 29.5 % 20.5-60.0 [facility] MCH Auto (RBC) [Entitic mass ]Ordered By: Kate Prado on 11-19-2024 MCH (RBC) [Entitic mass] 26.0 pg Low 26.7-34.0 [facility] MCHC Auto (RBC) [Mass/Vol]Or dered By: Kate Prado on 11-19-2024 MCHC (RBC) [Mass/Vol] 31.5 g/dL 29.9-35.2 [facility] MCV Auto (RBC) [Entitic vol] Ordered By: Kate Prado on 11-19-2024 MCV (RBC) [Entitic vol] 82.4 fL 81.0-99.0 [facility] Microalbumin [Mass/volume] i n UrineOrdered By: Kate Prado on 11-19-2024 Albumin DL <= 20 mg/L (U) [Mass/Vol] mg/dL <=30.0 [facility] Monocytes Auto (Bld) [#/Vol] Ordered By: Kate Prado on 11-19-2024 Monocytes (Bld) [#/Vol] 0.5 10 3/uL 0.3-0.8 [facility] Monocytes/100 WBC Auto (Bld) Ordered By: Kate Prado on 11-19-2024 Monocytes/100 WBC (Bld) 8.4 % 1.7-12.0 [facility] Neutrophils Auto (Bld) [#/Vo l]Ordered By: Kate Prado on 11-19-2024 Neutrophils (Bld) [#/Vol] 3.8 10 3/uL 1.4-6.5 [facility] Neutrophils/100 WBC Auto (Bl d)Ordered By: Kate Prado on 11-19-2024 Neutrophils/100 WBC (Bld) 60.8 % 43.0-75.0 [facility] No Panel InformationOrdered By: Kate Prado on 11-19-2024 Eosinophils # (Auto) 0.1 10 3/uL 0.0-0.7 [facility] Folate 4.10 ng/mL Low 8.60-58.90 [facility] Immature Granulocyte # (Auto) 0.02 10 3/uL 0.00-0.03 [facility] Urine Random Creatinine 147.20 mg/dL 20.00-300. 00 [facility] Platelet mean volume Auto (B ld) [Entitic vol]Ordered By: Kate Prado on 11-19-2024 Platelet mean volume (Bld) [Entitic vol] 10.4 fL 9.5-13.5 [facility] Platelets Auto (Bld) [#/Vol] Ordered By: Kate Prado on 11-19-2024 Platelets (Bld) [#/Vol] 272 10 3/uL 150-450 [facility] RBC Auto (Bld) [#/Vol]Ordere d By: Kate Prado on 11-19-2024 RBC (Bld) [#/Vol] 4.08 10 6/uL Low 4.20-5.40 [facility] Serum or plasma albumin/glob ulin mass ratioOrdered By: Kate Prado on 11-19-2024 Albumin/Globulin [Mass ratio] 0.4 {ratio} [facility] Serum or plasma anion gap de terminationOrdered By: Kate Prado on 11-19-2024 Anion gap [Moles/Vol] 13.6 mmol/L [facility] Urine microalbumin/creatinin e mass ratioOrdered By: Kate Prado on 11-19-2024 Albumin/Creatinine DL <= 20 mg/L (U) [Mass ratio] 8.8 mg/g 0.0-29.9 [facility] Comment on above: NO MICROALBUMINURIA 0-29 MG/GCLINICAL MICROALBUMINURIA 30-300 MG/GMACROALBUMINURIA >300 MG/G Ambulatory Visit Summaryon 1 06-10-2023 Ambulatory Visit Summary Ambulatory Visit Summary YAA DUGGAN :1950 Visit Date:04/09/2024 Ambulatory Visit Instructions Your Diagnosis Bile salt-induced diarrhea History of anal cancer History of colon polyps Your Care Team Attending Physician - Otis GATES, Arvind Garcia Primary Care Physician - KATE PRADO MD This Is Your Medications List [...] you for choosing us for your care. 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 Comment on above: Result Comment: Elec tronically Signed By: Otis GATES, Arvind Garcia\.br\Date and Time Signed: 04/09/24 10:45 EST Office Visit (Cardiology)on 01-19-2023 Follow-up visit Diagnoses/Problems [...] Metabolic Panel; Status:Active - Retrospective Authorization; Requested for:[id number]; Angina pectoris, Dyspnea, Jaw pain Cardiac Catheterization Lab Procedures; Status:Active - Retrospective Authorization; Requested for:[id number]; Benign essential hypertension Start: Losartan Potassium 50 MG Oral Tablet; TAKE 1 TABLET TWICE DAILY Class 1 obesity with body mass index (BMI) of 34.0 to 34.9 in adult Healthy Weight Tips; Status:Complete - Retrospective Authorization; Done: [id number] Some eating tips that can help you lose weight.; Status:Complete - Retrospective Authorization; Done: [id number] Dyspnea IO EKG Electrocardiogram- 12 Lead; Status:Complete; Done: [id number] Hyperlipidemia Start: Atorvastatin Calcium 40 MG Oral Tablet (Lipitor); TAKE 1 TABLET AT BEDTIME ALT - Alanine Aminotransferase, Serum; Status:Active - Retrospective Authorization; Requested for:[id number]; AST; Status:Active - Retrospective Authorization; Requested for:[id number]; Lipid Panel; Status:Active - Retrospective Authorization; Requested for:[id number]; SocHx: Former smoker Tobacco Use Screening; Status:Complete; Done: [id number] Unlinked Stop: Atorvastatin Calcium 20 MG Oral [...] normal sinus rhythm with no acute changes. Assessment/recommendations: 1?symptoms highly suggestive of crescendo angina. Patient [...] her progressive (more content not included)... Normal [employer] Tobacco Screening.on 023 Adult depression screening assessment No [facility] [employer]-Sandu tevin 250 DO Work Phone: Tobacco use status [facility] b) No -[facility]-Sandu tevin 250 DO Work Phone: MICRO OTHER TESTSOrdered By: Ester Hernandez on 07-20-2022 Fecal WBC Lactoferrin Negative (07/20/22 9:30 AM) Normal Negative [facility] Man Sero MG MAMM SCREEN 3D THOMPSON CADon 07-12-2022 MG MAMM SCREEN 3D THOMPSON CAD Patient: YAA DUGGANHeriberto Exam Date: 07/12/2022 : 1950 Gender:F Ordering : DR KATE PRADO M.D. Admission #: [id number] Family : Order #: [id number] CLICK HERE TO VIEW EXAM RADIOLOGY REPORT [...] radiation, chemotherapy. Family Cancers None LOCATION: [facility] BREAST COMPOSITION: Almost entirely fatty. FINDINGS: [...] MD on 07/12/2022 at 11:07 Normal [facility] CBC AUTO DIFFon 07-05-2022 BASO # 0.0 103/ul Normal 0.0-0.1 [facility] Comment on above: Performed By: #### C BC #### [facility] [address] [place] [address] Dr. Vitaliy Varela Basophils/100 WBC (Bld) 0.4 % Normal 0.2-2.0 [facility] Comment on above: Performed By: #### C BC #### [facility] [address] [place] [address] Dr. Vitaliy Varela EO # 0.1 103/ul Normal 0.0-0.[address] [facility] Comment on above: Performed By: #### C BC #### [facility] [address] [place] [address] Dr. Vitaliy Varela Eosinophils/100 WBC (Bld) 1.6 % Normal 0.9-7.0 [facility] Comment on above: Performed By: #### C BC #### [facility] [address] [place] [address] Dr. Vitaliy Varela Erythrocyte distribution width (RBC) [Ratio] 13.7 % Normal 11.0-15.0 [facility] Comment on above: Performed By: #### C BC #### [facility] [address] [place] [address] Dr. Vitaliy Varela Hematocrit (Bld) [Volume fraction] 43.8 % Normal 36.0-48.0 [facility] Comment on above: Performed By: #### C BC #### [facility] [address] [place] [address] Dr. Vitaliy Varela Hemoglobin (Bld) [Mass/Vol] 14.5 g/dL Normal 12.0-16.0 [facility] Comment on above: Performed By: #### C BC #### [facility] [address] [place] [address] Dr. Vitaliy Varela IG # 0.01 10e3/ul Normal 0.00-0.03 [facility] Comment on above: Performed By: #### C BC #### [facility] [address] [place] [address] Dr. Vitaliy Varela IG % 0.2 % Normal 0.0-0.5 [facility] Comment on above: Performed By: #### C BC #### [facility] [address] [place] [address] Dr. Vitaliy Varela LYMPH # 1.7 103/ul Normal 1.2-3.8 [facility] Comment on above: Performed By: #### C BC #### [facility] [address] [place] [address] Dr. Vitaliy Varela Lymphocytes/100 WBC (Bld) 31.3 % Normal 20.5-60.0 [facility] Comment on above: Performed By: #### C BC #### [facility] [address] [place] [address] Dr. Vitaliy Varela MANUAL DIFF REQ NO Normal [facility] Comment on above: Performed By: #### C BC #### [facility] [address] [place] [address] Dr. Vitaliy Varela MCH (RBC) [Entitic mass] 27.8 pg Normal 26.7-34.0 [facility] Comment on above: Performed By: #### C BC #### [facility] [address] [place] [address] Dr. Vitaliy Varela MCHC (RBC) [Mass/Vol] 33.1 g/dL Normal 29.9-35.[address] [facility] Comment on above: Performed By: #### C BC #### [facility] [address] [place] [address] Dr. Vitaliy Varela MCV (RBC) [Entitic vol] 84.1 fL Normal 81.0-99.[address] [facility] Comment on above: Performed By: #### C BC #### [facility] [address] [place] [address] Dr. Vitaliy Varela MONO # 0.5 103/ul Normal 0.3-0.[address] [facility] Comment on above: Performed By: #### C BC #### [facility] [address] [place] [address] Dr. Vitaliy Varela Monocytes/100 WBC (Bld) 9.3 % Normal 1.7-12.[address] [facility] Comment on above: Performed By: #### C BC #### [facility] [address] [place] [address] Dr. Vitaliy Varela NEUT # 3.2 103/ul Normal 1.4-6.[address] [facility] Comment on above: Performed By: #### C BC #### [facility] [address] [place] [address] Dr. Vitaliy Varela Neutrophils/100 WBC (Bld) 57.2 % Normal 43.0-75.[address] [facility] Comment on above: Performed By: #### C BC #### [facility] [address] [place] [address] Dr. Vitaliy Varela Platelet mean volume (Bld) [Entitic vol] 9.2 fL Critically low 9.5-13.[address] [facility] Comment on above: Performed By: #### C BC #### [facility] [address] [place] [address] Dr. Vitaliy Varela PLT 227 103/ul Normal 150-[address] [facility] Comment on above: Performed By: #### C BC #### [facility] [address] [place] [address] Dr. Vitaliy Varela RBC 5.21 106/ul Normal 4.20-5.40 [facility] Comment on above: Performed By: #### C BC #### [facility] [address] [place] [address] Dr. Vitaliy Varela WBC 5.5 103/ul Normal 4.0-11.0 [facility] Comment on above: Performed By: #### C BC #### [facility] [address] [place] [address] Dr. Vitaliy Varela FREE T4on 07-05-2022 Free T4 [Mass/Vol] 1.44 ng/dL Normal 0.76-1.46 [facility] Comment on above: Performed By: #### F T4 #### [facility] [address] [place] [address] Dr. Vitaliy Varela GLYCOHEMOGLOBIN A1Con 2022 ADA RECOMMENDATION SEE BELOW Normal [facility] Comment on above: Result Comment: ADA RECOMMENDED LIMIT 4.0 - 6.0 ADA THERAPEUTIC TARGET < 7.0 ACTION SUGGESTED > 7.0 Performed By: #### A 1C #### [facility] [address] [place] [address] Dr. Vitaliy Varela Glucose [Mass/Vol] 120 mg/dL Normal [facility] Comment on above: Performed By: #### A 1C #### [facility] [address] [place] [address] Dr. Vitaliy Varela HbA1c (Bld) [Mass fraction] 5.8 % Normal 4.5-6.2 [facility] Comment on above: Performed By: #### A 1C #### [facility] [address] [place] [address] Dr. Vitaliy Varela LIPID PROFILEon 07-05-2022 CHOL-HDL RATIO NORM SEE BELOW Normal [facility] Comment on above: Result Comment: 3.3 - 4.4 LOW RISK 4.4 - 7.1 AVERAGE RISK 7.1 - 11.0 MODERATE RISK >11.0 HIGH RISK Performed By: #### C MP, TSH, LIPID #### [facility] [address] [place] [address] Dr. Vitaliy Varela Cholesterol [Mass/Vol] 287 mg/dL Critically high <=200 [facility] Comment on above: Performed By: #### C MP, TSH, LIPID #### [facility] [address] [address] [address] Vitaliy Varela Cholesterol in HDL [Mass/Vol] 50 mg/dL Normal 40-60 [facility] Comment on above: Performed By: #### C MP, TSH, LIPID #### [facility] [address] [address] [address] Vitaliy Varela Cholesterol in LDL [Mass/Vol] 200.4 mg/dL Normal [facility] Comment on above: Performed By: #### C MP, TSH, LIPID #### [facility] [address] [place] [address] Dr. Vitaliy Varela Cholesterol.total/Chol esterol in HDL [Mass ratio] 5.7 {ratio} Normal [facility] Comment on above: Performed By: #### C MP, TSH, LIPID #### [facility] [address] [address] [address] Vitaliy Varela HDL NORMAL > or = 60 mg/dl - LO W CARDIOVASCULAR RISK <40 mg/dl - HIGH CARDIOVASCULAR RISK Normal [facility] Comment on above: Performed By: #### C MP, TSH, LIPID #### [facility] [address] [place] [address] Dr. Vitaliy Varela LDL CALC NORMAL SEE BELOW Normal [facility] Comment on above: Result Comment: <100 mg/dl OPTIMAL 100 - 129 mg/dl NEAR OR ABOVE OPTIMAL 130 - 159 mg/dl BORDERLINE HIGH 160 - 189 mg/dl HIGH >190 mg/dl VERY HIGH Performed By: #### C MP, TSH, LIPID #### [facility] [address] [place] [address] Dr. Vitaliy Varela Triglyceride [Mass/Vol] 183 mg/dL Critically high <=[address] [facility] Comment on above: Performed By: #### C MP, TSH, LIPID #### [facility] [address] [address] [address] Vitaliy Varela VLDL CALC 36.6 mg/dL Normal [facility] Comment on above: Performed By: #### C MP, TSH, LIPID #### [facility] [address] [place], [place] [address] Dr. Vitaliy Varela PROF 14(COMP METB)on 023 Albumin [Mass/Vol] 3.9 g/dL Normal 3.4-5.0 [facility] Comment on above: Performed By: #### C MP, TSH, LIPID ####[facility] [address] [address]Dr. Vitaliy Varela Albumin/Globulin [Mass ratio] 1.1 {ratio} Normal [facility] Comment on above: Performed By: #### C MP, TSH, LIPID ####[facility] [address] [address]Dr. Vitaliy Varela ALP [Catalytic activity/Vol] 85 U/L Normal 46-116 [facility] Comment on above: Performed By: #### C MP, TSH, LIPID ####[facility] [address] [address]Dr. Vitaliy Varela ALT [Catalytic activity/Vol] 38 U/L Normal 14-59 [facility] Comment on above: Performed By: #### C MP, TSH, LIPID ####[facility] [address] [place] [address]Dr. Vitaliy Varela Anion gap [Moles/Vol] 13.1 mmol/L Normal [facility] Comment on above: Performed By: #### C MP, TSH, LIPID ####[facility] [address] [place] [address]Dr. Vitaliy Varela AST [Catalytic activity/Vol] 32 U/L Normal 15-37 [facility] Comment on above: Performed By: #### C MP, TSH, LIPID ####[facility] [address] [address]Dr. Vitaliy Varela Bilirubin [Mass/Vol] 0.8 mg/dL Normal 0.2-1.0 [facility] Comment on above: Performed By: #### C MP, TSH, LIPID ####[facility] [address] [place] [address]Dr. Vitaliy Varela Calcium [Mass/Vol] 8.6 mg/dL Normal 8.5-10.1 [facility] Comment on above: Performed By: #### C MP, TSH, LIPID ####[facility] [address] [place] [address]Dr. Vitaliy Varela Chloride [Moles/Vol] 103 mmol/L Normal 98-107 [facility] Comment on above: Performed By: #### C MP, TSH, LIPID ####[facility] [address] [place] [address]Dr. Vitaliy Varela CO2 [Moles/Vol] 26.6 mmol/L Normal 21.0-32.0 [facility] Comment on above: Performed By: #### C MP, TSH, LIPID ####[facility] [address] [place], [place] [address]Dr. Shikharoman Varela Creatinine [Mass/Vol] 0.72 mg/dL Normal 0.55-1.02 [facility] Comment on above: Performed By: #### C MP, TSH, LIPID ####[facility] [address] [place], [place] [address]Dr. Vitaliy Varela EGFR-AF JAMAICAN >60 Normal >=60 [facility] Comment on above: Performed By: #### C MP, TSH, LIPID ####[facility] [address] [place], [place] [address]Dr. Vitaliy Varela EGFR-NON AF JAMA[place] >60 Normal >=60 [facility] Comment on above: Performed By: #### C MP, TSH, LIPID ####[facility] [address] [place] [address]Dr. Vitaliy Avery Globulin (S) [Mass/Vol] 3.7 g/dL Normal [facility] Comment on above: Performed By: #### C MP, TSH, LIPID ####[facility] [address] [place] [address]Dr. Shikharoman Avery Glucose [Mass/Vol] 108 mg/dL Critically high 74-106 T [facility] Comment on above: Performed By: #### C MP, TSH, LIPID ####[facility] [address] [place] [address]Dr. Vitaliy Varela Potassium [Moles/Vol] 3.7 mmol/L Normal 3.5-5.[address] [facility] Comment on above: Performed By: #### C MP, TSH, LIPID ####[facility] [address] [address]Dr. Vitaliy Varela Protein [Mass/Vol] 7.6 g/dL Normal 6.4-8.[address] [facility] Comment on above: Performed By: #### C MP, TSH, LIPID ####[facility] [address] [place] [address]Dr. Vitaliy Varela Sodium [Moles/Vol] 139 mmol/L Normal 136-[address] [facility] Comment on above: Performed By: #### C MP, TSH, LIPID ####[facility] [address] [place] [address]Dr. Vitaliy Varela Urea nitrogen [Mass/Vol] 13.0 mg/dL Normal 7.0-18.[address] [facility] Comment on above: Performed By: #### C MP, TSH, LIPID ####[facility] [address] [place] [address]Dr. Vitaliy Varela Urea nitrogen/Creatinine [Mass ratio] 18.1 mg/mg Normal [facility] Comment on above: Performed By: #### C MP, TSH, LIPID ####[facility] [address] [place] [address]Dr. Vitaliy Varela TSHon 07-05-2022 TSH 0.570 uIU/mL Normal 0.358-3.[address] [facility] Comment on above: Performed By: #### C MP, TSH, LIPID ####[facility] [address] [place] [address]Dr. Vitaliy Varela CBC AUTO DIFFon 09-21-2021 BASO # 0.0 103/ul Normal 0.0-0.[address] [facility] Comment on above: Performed By: #### C BC #### [facility] [address] [address] [address] Vitaliy Varela Basophils/100 WBC (Bld) 0.4 % Normal 0.2-2.0 [facility] Comment on above: Performed By: #### C BC #### [facility] [address] [place] [address] Dr. Vitaliy Varela EO # 0.1 103/ul Normal 0.0-0.7 [facility] Comment on above: Performed By: #### C BC #### [facility] [address] [place] [address] Dr. Vitaliy Varela Eosinophils/100 WBC (Bld) 2.6 % Normal 0.9-7.0 [facility] Comment on above: Performed By: #### C BC #### [facility] [address] [place] [address] Dr. Vitaliy Varela Erythrocyte distribution width (RBC) [Ratio] 14.2 % Normal 11.0-15.0 [facility] Comment on above: Performed By: #### C BC #### [facility] [address] [place] [address] Dr. Vitaliy Varela Hematocrit (Bld) [Volume fraction] 41.0 % Normal 36.0-48.0 [facility] Comment on above: Performed By: #### C BC #### [facility] [address] [place] [address] Dr. Vitaliy Varela Hemoglobin (Bld) [Mass/Vol] 13.1 g/dL Normal 12.0-16.0 [facility] Comment on above: Performed By: #### C BC #### [facility] [address] [place] [address] Dr. Vitaliy Varela IG # 0.03 10e3/ul Normal 0.00-0.03 [facility] Comment on above: Performed By: #### C BC #### [facility] [address] [place] [address] Dr. Vitaliy Varela IG % 0.6 % Critically high 0.0-0.5 [facility] Comment on above: Performed By: #### C BC #### [facility] [address] [place] [address] Dr. Vitaliy Varela LYMPH # 1.6 103/ul Normal 1.2-3.[address] [facility] Comment on above: Performed By: #### C BC #### [facility] [address] [place] [address] Dr. Vitaliy Varela Lymphocytes/100 WBC (Bld) 29.8 % Normal 20.5-60.0 [facility] Comment on above: Performed By: #### C BC #### [facility] [address] [place] [address] Dr. Vitaliy Varela MANUAL DIFF REQ NO Normal [facility] Comment on above: Performed By: #### C BC #### [facility] [address] [place] [address] Dr. Vitaliy Varela MCH (RBC) [Entitic mass] 27.9 pg Normal 26.7-34.0 [facility] Comment on above: Performed By: #### C BC #### [facility] [address] [place] [address] Dr. Vitaliy Varela MCHC (RBC) [Mass/Vol] 32.0 g/dL Normal 29.9-35.2 [facility] Comment on above: Performed By: #### C BC #### [facility] [address] [place] [address] Dr. Vitaliy Varela MCV (RBC) [Entitic vol] 87.2 fL Normal 81.0-99.0 [facility] Comment on above: Performed By: #### C BC #### [facility] [address] [place] [address] Dr. Vitaliy Varela MONO # 0.6 103/ul Normal 0.3-0.[address] [facility] Comment on above: Performed By: #### C BC #### [facility] [address] [place] [address] Dr. Vitaliy Varela Monocytes/100 WBC (Bld) 11.0 % Normal 1.7-12.[address] [facility] Comment on above: Performed By: #### C BC #### [facility] [address] [place] [address] Dr. Vitaliy Varela NEUT # 3.0 103/ul Normal 1.4-6.[address] [facility] Comment on above: Performed By: #### C BC #### [facility] [address] [place] [address] Dr. Vitaliy Varela Neutrophils/100 WBC (Bld) 55.6 % Normal 43.0-75.0 [facility] Comment on above: Performed By: #### C BC #### [facility] [address] [place] [address] Dr. Vitaliy Varela Platelet mean volume (Bld) [Entitic vol] 9.2 fL Critically low 9.5-13.5 [facility] Comment on above: Performed By: #### C BC #### [facility] [address] [place] [address] Dr. Vitaliy Varela PLT 230 103/ul Normal 150-[address] [facility] Comment on above: Performed By: #### C BC #### [facility] [address] [place] [address] Dr. Vitaliy Varela RBC 4.70 106/ul Normal 4.20-5.[address] [facility] Comment on above: Performed By: #### C BC #### [facility] [address] [place] [address] Dr. Vitaliy Vaerla WBC 5.4 103/ul Normal 4.0-11.[address] [facility] Comment on above: Performed By: #### C BC #### [facility] [address] [place] [address] Dr. Vitaliy Varela FREE T4on 09-21-2021 Free T4 [Mass/Vol] 1.18 ng/dL Normal 0.76-1.46 [facility] Comment on above: Performed By: #### F T4 #### [facility] [address] [place] [address] Dr. Vitaliy Varela LIPID PROFILEon 09-21-2021 CHOL-HDL RATIO NORM SEE BELOW Normal The [facility] Comment on above: Result Comment: 3.3 - 4.4 LOW RISK 4.4 - 7.1 AVERAGE RISK 7.1 - 11.0 MODERATE RISK >11.0 HIGH RISK Performed By: #### L IPID, CMP, TSH #### [facility] [address] [place] [address] Dr. Vitaliy Varela Cholesterol [Mass/Vol] 278 mg/dL Critically high <=[address] [facility] Comment on above: Performed By: #### L IPID, CMP, TSH #### [facility] [address] [address] [address] Vitaliy Varela Cholesterol in HDL [Mass/Vol] 44 mg/dL Normal 40-[address] [facility] Comment on above: Performed By: #### L IPID, CMP, TSH #### [facility] [address] [address] [address] Vitaliy Varela Cholesterol in LDL [Mass/Vol] 181.8 mg/dL Normal [facility] Comment on above: Performed By: #### L IPID, CMP, TSH #### [facility] [address] [address] [address] Vitaliy Varela Cholesterol.total/Chol esterol in HDL [Mass ratio] 6.3 {ratio} Normal [facility] Comment on above: Performed By: #### L IPID, CMP, TSH #### [facility] [address] [address] [address] Vitaliy Varela HDL NORMAL > or = 60 mg/dl - LO W CARDIOVASCULAR RISK <40 mg/dl - HIGH CARDIOVASCULAR RISK Normal [facility] Comment on above: Performed By: #### L IPID, CMP, TSH #### [facility] [address] [address] [address] Vitaliy Varela LDL CALC NORMAL SEE BELOW Normal [facility] Comment on above: Result Comment: <100 mg/dl OPTIMAL 100 - 129 mg/dl NEAR OR ABOVE OPTIMAL 130 - 159 mg/dl BORDERLINE HIGH 160 - 189 mg/dl HIGH >190 mg/dl VERY HIGH Performed By: #### L IPID, CMP, TSH #### [facility] [address] [address] [address] Vitaliy Varela Triglyceride [Mass/Vol] 261 mg/dL Critically high <=[address] [facility] Comment on above: Performed By: #### L IPID, CMP, TSH #### [facility] [address] [address] [address] Vitaliy Varela VLDL CALC 52.2 mg/dL Normal [facility] Comment on above: Performed By: #### L IPID, CMP, TSH #### [facility] [address] [address] [address] Vitaliy Varela PROF 14(COMP METB)on 022 Albumin [Mass/Vol] 3.7 g/dL Normal 3.4-5.0 [facility] Comment on above: Performed By: #### L IPID, CMP, TSH #### [facility] [address] [address] [address] Vitaliy Varela Albumin/Globulin [Mass ratio] 0.9 {ratio} Normal [facility] Comment on above: Performed By: #### L IPID, CMP, TSH #### [facility] [address] [address] [address] Vitaliy Varela ALP [Catalytic activity/Vol] 90 U/L Normal 46-116 [facility] Comment on above: Performed By: #### L IPID, CMP, TSH #### [facility] [address] [address] [address] Vitaliy Varela ALT [Catalytic activity/Vol] 35 U/L Normal 14-59 [facility] Comment on above: Performed By: #### L IPID, CMP, TSH #### [facility] [address] [place] [address] Dr. Vitaliy Varela Anion gap [Moles/Vol] 12.6 mmol/L Normal [facility] Comment on above: Performed By: #### L IPID, CMP, TSH #### [facility] [address] [address] [address] Vitaliy Varela AST [Catalytic activity/Vol] 19 U/L Normal 15-37 [facility] Comment on above: Performed By: #### L IPID, CMP, TSH #### [facility] [address] [place] [address] Dr. Vitaliy Varela Bilirubin [Mass/Vol] 0.4 mg/dL Normal 0.2-1.0 [facility] Comment on above: Performed By: #### L IPID, CMP, TSH #### [facility] [address] [place], [place] [id number] Dr. Vitaliy Varela Calcium [Mass/Vol] 8.9 mg/dL Normal 8.5-10.1 [facility] Comment on above: Performed By: #### L IPID, CMP, TSH #### [facility] [address] [place] [address] Dr. Vitaliy Varela Chloride [Moles/Vol] 104 mmol/L Normal 98-107 [facility] Comment on above: Performed By: #### L IPID, CMP, TSH #### [facility] [address] [place] [address] Dr. Vitaliy Varela CO2 [Moles/Vol] 26.6 mmol/L Normal 21.0-32.0 [facility] Comment on above: Performed By: #### L IPID, CMP, TSH #### [facility] [address] [place] [address] Dr. Vitaliy Varela Creatinine [Mass/Vol] 0.83 mg/dL Normal 0.55-1.02 [facility] Comment on above: Performed By: #### L IPID, CMP, TSH #### [facility] [address] [place] [address] Dr. Vitaliy Varela EGFR-AF JAMAICAN >60 Normal >=60 [facility] Comment on above: Performed By: #### L IPID, CMP, TSH #### [facility] [address] [place] [address] Dr. Vitaliy Vaerla EGFR-NON AF JAMAICAN >60 Normal >=60 [facility] Comment on above: Performed By: #### L IPID, CMP, TSH #### [facility] [address] [place] [address] Dr. Vitaliy Varela Globulin (S) [Mass/Vol] 4.0 g/dL Normal [facility] Comment on above: Performed By: #### L IPID, CMP, TSH #### [facility] [address] [place] [address] Dr. Vitaliy Varela Glucose [Mass/Vol] 113 mg/dL Critically high 74-106 T [facility] Comment on above: Performed By: #### L IPID, CMP, TSH #### [facility] [address] [place] [address] Dr. Vitaliy Varela Potassium [Moles/Vol] 4.2 mmol/L Normal 3.5-5.[address] [facility] Comment on above: Performed By: #### L IPID, CMP, TSH #### [facility] [address] [place] [address] Dr. Vitaliy Varela Protein [Mass/Vol] 7.7 g/dL Normal 6.4-8.[address] [facility] Comment on above: Performed By: #### L IPID, CMP, TSH #### [facility] [address] [place] [address] Dr. Vitaliy Varela Sodium [Moles/Vol] 139 mmol/L Normal 136-145 [facility] Comment on above: Performed By: #### L IPID, CMP, TSH #### [facility] [address] [place] [address] Dr. Vitaliy Varela Urea nitrogen [Mass/Vol] 19.0 mg/dL Critically high 7.0-18.0 [facility] Comment on above: Performed By: #### L IPID, CMP, TSH #### [facility] [address] [place] [address] Dr. Vitaliy Varela Urea nitrogen/Creatinine [Mass ratio] 22.9 mg/mg Normal [facility] Comment on above: Performed By: #### L IPID, CMP, TSH #### [facility] [address] [place] [address] Dr. Vitaliy Varela TSHon 09-21-2021 TSH 0.108 uIU/mL Critically low 0.358-3.74 0 [facility] Comment on above: Performed By: #### L IPID, CMP, TSH #### [facility] [address] [place] [address] Dr. Vitaliy Varela TSH RANGE SEE BELOW Normal [facility] Comment on above: Result Comment: <0.3 4 UIU/ml HYPERTHYROID 0.34-5.60 UIU/ml EUTHYROID >5.60 UIU/ml HYPOTHYROID Performed By: #### L IPID, CMP, TSH #### [facility] [address] [address] [address] Vitaliy Varela Vital Signs Date Time Vital Sign Value Performing Clinician Facility 01-22-2025 13:00-0400 Diastolic blood pressure 77 mm[Hg] Kate Prado MD Work Phone: [facility] 01-22-2025 13:00-0400 Heart rate 63 /min Kate Prado MD Work Phone: [facility] 01-22-2025 13:00-0400 Respiratory rate 20 /min Kate Prado MD Work Phone: [phone] [place] [address] 01-22-2025 13:00-0400 SaO2% (BldA) [Mass fraction] 97 % Kate Prado MD Work Phone: [facility] 01-22-2025 13:00-0400 Systolic blood pressure 129 mm[Hg] Kate Prado MD Work Phone: [facility] 01-22-2025 10:48-0400 Body height 165.1 cm Kate Prado MD Work Phone: [facility] 01-22-2025 10:48-0400 Body weight 90.71 kg Kate Prado MD Work Phone: [facility] 12-27-2024 08:08-0400 Body height 163.83 cm Kate Prado MD Work Phone: [facility] 12-27-2024 08:08-0400 Body mass index (BMI) [Ratio] 33.7 kg/m2 Kate Prado MD Work Phone: [facility] 12-27-2024 08:08-0400 Body weight 90.71 kg Kate Prado MD Work Phone: [facility] 12-27-2024 08:08-0400 Diastolic blood pressure 70 mm[Hg] Kate Prado MD Work Phone: [facility] 12-27-2024 08:08-0400 Heart rate 75 /min Kate Prado MD Work Phone: [facility] 12-27-2024 08:08-0400 Systolic blood pressure 115 mm[Hg] Kate Prado MD Work Phone: [facility] 12-21-2024 09:53-0400 Body height 167.6 cm [facility] 1 [facility] 12-21-2024 09:53-0400 Body mass index (BMI) [Ratio] 32.28 kg/m2 [facility] 1 [facility] 12-21-2024 09:53-0400 Body weight 90.72 kg P[facility] 1 [facility] 11-19-2024 11:22-0400 Body height 163.83 cm Kate Prado MD Work Phone: [facility] 11-19-2024 11:22-0400 Body mass index (BMI) [Ratio] 34.1 kg/m2 Kate Prado MD Work Phone: [facility] 11-19-2024 11:22-0400 Body weight 91.62 kg Kate Prado MD Work Phone: [facility] 11-19-2024 11:22-0400 Diastolic blood pressure 74 mm[Hg] Kate Prado MD Work Phone: [facility] 11-19-2024 11:22-0400 Heart rate 80 /min Kate Prado MD Work Phone: [facility] 11-19-2024 11:22-0400 Respiratory rate 12 /min Kate Prado MD Work Phone: [facility] 11-19-2024 11:22-0400 SaO2% (BldA) [Mass fraction] 98 % Kate Prado MD Work Phone: [facility] 11-19-2024 11:22-0400 Systolic blood pressure 117 mm[Hg] Kate Prado MD Work Phone: [facility] 04-09-2024 10:09-0500 Blood Pressure Location Arvind Berg [facility] 04-09-2024 10:09-0500 Diastolic blood pressure 82 mm[Hg] Arvind Schneidermini [facility] 04-09-2024 10:09-0500 Heart rate 67 /min Samuels Jenniemini [facility] 04-09-2024 10:09-0500 Systolic blood pressure 137 mm[Hg] Samuels Jenniemini [facility] 05-05-2023 09:00-0500 Body height 163.83 cm Kate Prado Other [employer] [facility] [employer] Other 05-05-2023 09:00-0500 Body mass index (BMI) [Ratio] 36.5 kg/m2 Kate Prado Other [facility] Other 05-05-2023 09:00-0500 Body temperature 97.7 [degF] Kate Prado Other [facility] Other 05-05-2023 09:00-0500 Body weight 97.98 kg Kate Prado Other [facility] Other 05-05-2023 09:00-0500 Diastolic blood pressure 70 mm[Hg] Kate Prado Other [facility] Other 05-05-2023 09:00-0500 SaO2% (BldA) [Mass fraction] 95 % Kate Prado Other [facility] Other 05-05-2023 09:00-0500 Systolic blood pressure 122 mm[Hg] Kate Prado Other [facility] Other 04-08-2023 10:07-0500 Blood Pressure Location Ashely Deacon [facility] 04-08-2023 10:07-0500 Body temperature 96.8 [degF] Ashely Worthy [facility] 04-08-2023 10:07-0500 Diastolic blood pressure 73 mm[Hg] Ashely Worthy [facility] 04-08-2023 10:07-0500 Heart rate 64 /min Ashely Worthy [facility] 04-08-2023 10:07-0500 Systolic blood pressure 115 mm[Hg] Ashely Worthy [facility] 03-25-2023 13:06-0500 Body height 167.6 cm Eleazar Nagy MD Work Phone: [facility] 03-25-2023 13:06-0500 Body mass index (BMI) [Ratio] 35.35 kg/m2 Eleazar Nagy MD Work Phone: [facility] 03-25-2023 13:06-0500 Body weight 99.34 kg Eleazar Nagy MD Work Phone: [facility] 03-25-2023 13:06-0500 Diastolic blood pressure 74 mm[Hg] Eleazar Nagy MD Work Phone: [facility] 03-25-2023 13:06-0500 Heart rate 76 /min Eleazar Nagy MD Work Phone: [facility] 03-25-2023 13:06-0500 Systolic blood pressure 128 mm[Hg] Eleazar Nagy MD Work Phone: [facility] 03-04-2023 15:30-0400 Body height 163.83 cm aKte Prado Other [facility] Other 03-04-2023 15:30-0400 Body mass index (BMI) [Ratio] 36.84 kg/m2 Kate Prado Other [facility] Other 03-04-2023 15:30-0400 Body weight 98.88 kg Kate Prado Other [facility] Other 03-04-2023 15:30-0400 Diastolic blood pressure 74 mm[Hg] Kate Prado Other [facility] Other 03-04-2023 15:30-0400 SaO2% (BldA) [Mass fraction] 93 % Kate Prado Other [facility] Other 03-04-2023 15:30-0400 Systolic blood pressure 145 mm[Hg] Kate Prado Other [facility] Other 01-19-2023 10:01-0400 Diastolic blood pressure 80 mm[Hg] Kate Prado Work Phone: [facility] [employer] [facility] Work Phone: 01-19-2023 10:01-0400 Systolic blood pressure 158 mm[Hg] Kate Prado Work Phone: [employer] DO Work Phone: 01-19-2023 09:55-0400 Body height 167.64 cm Kate Prado Work Phone: [employer] DO Work Phone: 01-19-2023 09:55-0400 Body mass index (BMI) [Ratio] 34.54 kg/m2 Kate Prdao Work Phone: [employer] DO Work Phone: 01-19-2023 09:55-0400 Body surface area Derived from formula 2.06 m2 Kate Prado Work Phone: [employer] DO Work Phone: 01-19-2023 09:55-0400 Body weight 97.07 kg Kate Prado Work Phone: [facility] [employer] 250 DO Work Phone: 01-19-2023 09:55-0400 Diastolic blood pressure 84 mm[Hg] Kate Prado Work Phone: [facility] [employer] DO Work Phone: 01-19-2023 09:55-0400 Heart rate 58 /min Kate Prado Work Phone: [facility] [email or web address] DO Work Phone: 01-19-2023 09:55-0400 Systolic blood pressure 160 mm[Hg] Kate Prado Work Phone: [facility] [email or web address] DO Work Phone: 01-17-2023 15:00-0400 Body height 163.83 cm Kate Prado Other [facility] [employer] Other 01-17-2023 15:00-0400 Body mass index (BMI) [Ratio] 35.96 kg/m2 Kate Prado Other [employer] Other 01-17-2023 15:00-0400 Body weight 96.53 kg Kate Prado Other [facility] Other 01-17-2023 15:00-0400 Diastolic blood pressure 89 mm[Hg] Kate Prado Other [facility] Other 01-17-2023 15:00-0400 Respiratory rate 12 /min Kate Prado Other [facility] Other 01-17-2023 15:00-0400 Systolic blood pressure 143 mm[Hg] Kate Prado Other [facility] Other 01-07-2023 13:13-0400 Diastolic blood pressure 99 mm[Hg] Ashelypetrona RobDeacon [facility] 01-07-2023 13:13-0400 Mean blood pressure 128 mm[Hg] Ashely Deacon [facility] 01-07-2023 13:13-0400 Systolic blood pressure 186 mm[Hg] Ashely Deacon [facility] 01-07-2023 13:05-0400 Blood Pressure Location Ashely Deacon [facility] 01-07-2023 13:05-0400 Body temperature 97.34 [degF] Ashely Deacon [facility] 01-07-2023 13:05-0400 Diastolic blood pressure 92 mm[Hg] Ashely Deacon [facility] 01-07-2023 13:05-0400 Heart rate 63 /min Ashely Deacon [facility] 01-07-2023 13:05-0400 Systolic blood pressure 150 mm[Hg] Ashely Deacon [facility] 01-06-2023 10:00-0400 Body height 163.83 cm Kate Prado Other [facility] Other 01-06-2023 10:00-0400 Body mass index (BMI) [Ratio] 36.94 kg/m2 Kate Prado Other [facility] Other 01-06-2023 10:00-0400 Body temperature 98 [degF] Kate Prado Other [facility] Other 01-06-2023 10:00-0400 Body weight 99.16 kg Kate Prado Other [facility] Other 01-06-2023 10:00-0400 Diastolic blood pressure 82 mm[Hg] Kate Prado Other [facility] Other 01-06-2023 10:00-0400 SaO2% (BldA) [Mass fraction] 97 % Kate Prado Other [facility] Other 01-06-2023 10:00-0400 Systolic blood pressure 184 mm[Hg] Kate Prado Other [facility] Other 12-03-2022 13:35-0400 Diastolic blood pressure 74 mm[Hg] Ashelypetrona RobDeacon [facility] 12-03-2022 13:35-0400 Mean blood pressure 105 mm[Hg] Ashely Deacon [facility] 12-03-2022 13:35-0400 Systolic blood pressure 168 mm[Hg] Ashely Deacon [facility] 12-03-2022 13:25-0400 Blood Pressure Location Ashely Deacon [facility] 12-03-2022 13:25-0400 Body temperature 98.06 [degF] Ashely Deacon [facility] 12-03-2022 13:25-0400 Diastolic blood pressure 90 mm[Hg] Ashely Deacon [facility] 12-03-2022 13:25-0400 Heart rate 62 /min Ashely Deacon [facility] 12-03-2022 13:25-0400 Respiratory rate 16 /min Ashelypetrona RobDeacon [facility] 12-03-2022 13:25-0400 SaO2% (BldA) [Mass fraction] 97 % Ashely Deacon [facility] 12-03-2022 13:25-0400 Systolic blood pressure 168 mm[Hg] Ashely Deacon [facility] 09-03-2022 13:33-0400 Diastolic blood pressure 84 mm[Hg] Ashely Deacon [facility] 09-03-2022 13:33-0400 Mean blood pressure 103 mm[Hg] Ashely Deacon [facility] 09-03-2022 13:33-0400 Systolic blood pressure 142 mm[Hg] Ashely Deacon [facility] 09-03-2022 13:28-0400 Blood Pressure Location Ashely Deacon [facility] 09-03-2022 13:28-0400 Body temperature 97.16 [degF] Ashely Deacon [facility] 09-03-2022 13:28-0400 Diastolic blood pressure 83 mm[Hg] Ashely Deacon [facility] 09-03-2022 13:28-0400 Heart rate 67 /min Ashely Deacon [facility] 09-03-2022 13:28-0400 Systolic blood pressure 163 mm[Hg] Ashely Deacon [facility] 07-15-2022 13:08-0500 Diastolic blood pressure 108 mm[Hg] Copeland SALAM [facility] 07-15-2022 13:08-0500 Mean blood pressure 136 mm[Hg] Copeland SALAM [facility] 07-15-2022 13:08-0500 Systolic blood pressure 192 mm[Hg] Copeland SALAM [facility] 07-15-2022 13:06-0500 Blood Pressure Location Copeland SALAM [facility] 07-15-2022 13:06-0500 Diastolic blood pressure 102 mm[Hg] Copeland SALAM [facility] 07-15-2022 13:06-0500 Heart rate 78 /min Copeland SALAM [facility] 07-15-2022 13:06-0500 Respiratory rate 16 /min Copeland SALAM [facility] 07-15-2022 13:06-0500 Systolic blood pressure 174 mm[Hg] Copeland SALAM [facility] 07-05-2022 10:45-0500 Body height 163.83 cm Kate Prado Other [facility] Other 07-05-2022 10:45-0500 Body mass index (BMI) [Ratio] 37.18 kg/m2 Kate Prado Other [facility] Other 07-05-2022 10:45-0500 Body weight 99.79 kg Kate Prado Other [facility] Other 07-05-2022 10:45-0500 Diastolic blood pressure 86 mm[Hg] Kate Prado Other [facility] Other 07-05-2022 10:45-0500 SaO2% (BldA) [Mass fraction] 97 % Kate Prado Other [facility] Other 07-05-2022 10:45-0500 Systolic blood pressure 152 mm[Hg] Kate Prado Other [facility] Other Encounters Encounter Date Encounter Type Care Provider Facility Start: 01-22-2025 End: 01-22-2025 ambulatory Dimple Caraballo Facility:[facility] Start: 01-22-2025 Non-patient / Non-visit Dimple Suarez -[facility] Work Phone: Start: 01-09-2025 End: 01-09-2025 Telephone encounter Anayeli Grissom MD Work Phone: [facility] Start: 01-01-2025 Non-patient / Non-visit Emily alford MD -[place] [facility] Work Phone: Start: 12-28-2024 End: 12-28-2024 Patient encounter procedure Dimple Caraballo MD -[facility] Work Phone: Start: 12-28-2024 End: 12-28-2024 ambulatory Kate Prado MD Work Phone: [facility] Work Phone: Start: 12-27-2024 End: 12-27-2024 ambulatory Kate Prado MD Work Phone: [facility] Work Phone: Start: 12-27-2024 End: 12-27-2024 Patient encounter procedure Dimple Caraballo MD -[facility] Work Phone: Start: 12-25-2024 End: 12-25-2024 Evaluation and management of inpatient ANAYELI GRISSOM [facility] Start: 12-24-2024 End: 12-24-2024 ambulatory P[facility] Pat Phone Call Provider 1 [facility] - Pre Admit Start: 12-21-2024 End: 12-21-2024 ambulatory ANAYELI GRISSOM [facility] Start: 12-11-2024 End: 12-11-2024 ambulatory Kate Prado MD Work Phone: [facility] Work Phone: Start: 12-11-2024 End: 12-11-2024 Patient encounter procedure Kate Prado MD -CT Scan [facility] Work Phone: Start: 11-19-2024 End: 11-19-2024 ambulatory Kate Prado MD Work Phone: [facility] Work Phone: Start: 11-19-2024 End: 11-19-2024 Patient encounter procedure Kate Prado MD -[facility] Work Phone: Start: 05-01-2024 End: 05-01-2024 ambulatory Alley Lucas PT [facility] Comment on above: Vertigo (Primary Dx) Start: 04-24-2024 End: 04-24-2024 Bamboo flowsheet Alley Lucas PT [facility] Start: 04-24-2024 End: 04-24-2024 Bamboo flowsheet Alley Lucas PT [facility] Start: 04-24-2024 End: 04-24-2024 ambulatory Alley Lucas PT [facility] Comment on above: Vertigo (Primary Dx) Start: 04-19-2024 End: 04-19-2024 ambulatory Alley Lucas PT [facility] Comment on above: Vertigo (Primary Dx) Start: 04-19-2024 End: 04-19-2024 Bamboo flowsheet Alley Lucas PT [facility] Start: 04-19-2024 End: 04-19-2024 Bamboo flowsheet Alley Lucas PT [facility] Start: 04-09-2024 End: 04-09-2024 ambulatory Arvind Berg Facility:[facility] Start: 04-09-2024 End: 04-09-2024 Patient encounter procedure Arvind Berg [facility] Start: 12-19-2023 End: 12-19-2023 ambulatory P[facility] Pat Phone Call Provider 1 [facility] - Pre Admit Start: 08-24-2023 End: 08-24-2023 ambulatory SENG TATTERSALL Not Available Start: 08-22-2023 End: 08-22-2023 ambulatory SENG TATTERSALL Not Available Start: 08-18-2023 End: 08-18-2023 ambulatory SENG TATTERSALL Not Available Start: 08-16-2023 End: 08-16-2023 ambulatory SENG TATTERSALL Not Available Start: 08-09-2023 End: 08-09-2023 ambulatory SENG TATTERSALL Not Available Start: 08-03-2023 End: 08-03-2023 ambulatory SENG TATTERSALL Not Available Start: 08-01-2023 End: 08-01-2023 ambulatory SENG TATTERSALL Not Available Start: 07-27-2023 End: 07-27-2023 ambulatory SENG TATTERSALL Not Available Start: 07-25-2023 End: 07-25-2023 ambulatory ALLEY LUCAS Not Available Start: 07-11-2023 Patient encounter procedure Kate Prado MD Work Phone: [facility] Start: 05-11-2023 End: 05-11-2023 ambulatory Kate Prado Other [facility] Other Start: 05-11-2023 Telephone encounter Kate Prado [facility] Start: 05-05-2023 End: 05-05-2023 ambulatory Kate Prado [facility] Other Start: 05-05-2023 Office outpatient vi sit 15 minutes Kate Prado [facility] Start: 04-08-2023 End: 04-08-2023 Patient encounter procedure Ashely Worthy [facility] Start: 03-25-2023 End: 03-25-2023 ambulatory ELEAZAR NAGY [facility] Start: 03-25-2023 End: 03-25-2023 Office outpatient visit 25 minutes Eleazar Nagy MD Work Phone: [facility] Comment on above: Essential hypertensi on, benign (Primary Dx); Mixed hyperlipidemia; Atypical chest pain; Class 2 obesity with body mass index (BMI) of 35.0 to 35.9 in adult, unspecified obesity type, unspecified whether serious comorbidity present Start: 03-14-2023 End: 03-14-2023 ambulatory Kate Prado [facility] Other Start: 03-14-2023 Telephone encounter Kate Prado [facility] Start: 03-08-2023 End: 03-08-2023 ambulatory Kate Prado [facility] Other Start: 03-08-2023 Telephone encounter Kate Prado [facility] Start: 03-04-2023 End: 03-04-2023 ambulatory Kate Prado [facility] Other Start: 03-04-2023 Office outpatient vi sit 15 minutes Kate Prado [facility] Start: 01-21-2023 SURGNON, Provider: Eleazar Nagy, Status: Pen, Time: 2:00 PM [facility]ado [facility] Work Phone: Start: 01-21-[address] Kate Prado Facility:[id number] Start: 01-19-2023 Office consultation new/estab patient 80 min Kate Prado [facility] Work Phone: Start: 01-19-2023 ambulatory Eleazar Nagy Facility :[id number] Start: 01-18-[address] Kate Prado Facili ty:[facility] Start: 01-17-2023 End: 01-17-2023 ambulatory Kate Prado [facility] Other Start: 01-17-2023 Office outpatient vi sit 15 minutes Kate Prado [facility] Start: 01-11-2023 End: 01-11-2023 ambulatory Kate Prado [facility] Other Start: 01-11-2023 Telephone encounter Kate Prado [facility] Start: 01-07-2023 End: 01-07-2023 Patient encounter procedure Ashely Nolan Deacon [facility] Start: 01-06-2023 End: 01-06-2023 ambulatory Kate Prado [facility] Other Start: 01-06-2023 Office outpatient vi sit 15 minutes Kate Prado [facility] Start: 12-03-2022 End: 12-03-2022 Patient encounter procedure Ashely A Deacon [facility] Start: 09-03-2022 End: 09-03-2022 Patient encounter procedure Ashely A Deacon [facility] Start: 08-17-2022 End: 08-17-2022 Lab Drop off [facility] Start: 07-28-2022 End: 07-28-2022 ambulatory Kate Prado [facility] Other Start: 07-28-2022 Telephone encounter Kate Prado [facility] Start: 07-20-2022 End: 07-20-2022 Lab Drop off [facility] Start: 07-15-2022 End: 07-15-2022 Patient encounter procedure Dinorah MORRIS [facility] Start: 07-15-2022 End: 07-15-2022 Patient encounter procedure Dinorah MORRIS [facility] Start: 07-13-2022 End: 07-13-2022 ambulatory Kate Prado [facility] Other Start: 07-13-2022 Telephone encounter Kate Prado [facility] Start: 07-12-2022 End: 07-13-[address] KATE PRADO Facility:H1 Start: 07-06-2022 End: 07-06-2022 ambulatory Kate Prado [facility] Other Start: 07-06-2022 Telephone encounter Kate Prado [facility] Start: 07-05-2022 Patient encounter procedure Kate Prado [facility] Start: 07-05-2022 End: 07-06-[address] KATE PRADO Facility:[facility]1 Start: 09-21-2021 End: 09-22-[address] KATE PRADO Facility:[facility]1 Procedures Date Procedure Procedure Detail Performing Clinician Start: 01-01-2025 Carcinoembryonic antigen cea Kate styles MD Work Phone: Comment on above: Nonsmokers <3.9 Smokers <5.6[employer] Electrochemiluminescence Immunoassay(ECLIA)Values obtained with different assay methods or kitscannot be used interchangeably. Results cannot beinterpreted as absolute evidence of the presence orabsence of malignant disease. Start: 12-28-2024 Endomysial antibody IgA level Kate cardoso MD Work Phone: Start: 12-28-2024 Hepatitis A virus antibody, IgM type Kate Prado MD Work Phone: Comment on above: A negative anti-HAV IgM result suggests no recent orcurrent HAV infection. Start: 12-28-2024 Hepatitis B core antibody measurement Kate Prado MD Work Phone: Start: 12-28-2024 Hepatitis B core antibody measurement, IgM type Kate Prado MD Work Phone: Comment on above: Performed at: [facility] [employer] [id number] Director: Cm Purcell PhD, Phone: [phone] Start: 12-28-2024 Human immunodeficiency virus antibody test Kate Prado MD Work Phone: Comment on above: HIV-1/HIV-2 antibodies and HIV-1 p24 ant igen were NOTdetected. There is no laboratory evidence of HIV infection.HIV NegativePerformed at: [place] [id number] Director: Cm Purcell PhD, Phone: [phone] Start: 12-11-2024 Computed tomography of abdomen and pelvis with contrast Kate Prado MD Work Phone: Start: 12-21-2022 Cystourethroscopy Arvind Berg Start: 08-17-2022 Colonoscopy Eleazar Nagy MD Work Phone: Start: 08-17-2022 Colonoscopy Ashely Worthy Start: 02-11-2021 Colonoscopy [facility] 1 Start: 04-01-2020 Cataract extraction and insertion of intraocular lens Dinorah MORRIS Cataract surgery Kate sanderson Work Phone: Cataract surgery [facility] Hernia repair Kate Prado Work Phone: Hernia repair [facility] ni Hysterectomy Kate Prado Work Phone: Hysterectomy [facility] Sarmin i Procedure on lymph node Cory Prado Work Phone: Total colonoscopy Kate quiroz Work Phone: Comment on above: 2022; Plan of Treatment Date Care Activity Detail Author Start: 08-17-2032 Screening for malign ant neoplasm of colon [facility] Start: 02-11-2031 Screening for malign ant neoplasm of colon Colonoscopy [facility] Start: 12-25-2025 Tobacco Screening Tobacco Screening [facility] Start: 12-21-2025 Adult BMI Screening Adult BMI Screen ing [facility] Start: 01-22-2025 [facility] Start: 01-07-2025 COVID-19 Vaccine ( season) COVID-19 Vaccine () [facility] Start: 01-07-2025 Influenza vaccination Influenza Vacc ine [facility] Start: 12-28-2024 Actin smooth muscle IgG Ab [Units/volume] in Serum [facility] Start: 12-28-2024 Ceruloplasmin [Mass/volume] in Serum or Plasma [facility] Start: 12-28-2024 Hepatitis A virus Ab [Presence] in Serum by Immunoassay [facility] Start: 12-28-2024 Hepatitis A virus antibody, IgM type [facility] Start: 12-28-2024 Hepatitis B core ant ibody measurement [facility] Start: 12-28-2024 Hepatitis B core ant ibody measurement, IgM type [facility] Start: 12-28-2024 Hepatitis B virus davis rface Ab [Presence] in Serum [facility] Start: 12-28-2024 IgG [Mass/volume] in Serum or Plasma [facility] Start: 12-28-2024 Lipoprotein a [Moles/volume] in Serum or Plasma [facility] Start: 12-28-2024 Mitochondria M2 IgG Ab [Units/volume] in Serum [facility] Start: 12-28-2024 End: 12-28-2024 [facility] Start: 12-25-2024 End: 12-25-2024 Cystourethroscopy CYSTOSCOPY Encounter for follow-up surveillance of bladder cancer [facility]25[facility]24 10[facility] Start: 12-19-2024 Tobacco Screening Tobacco Screening [facility] Start: 05-08-2024 End: 05-08-2024 ambulatory 05/08/2024 8:30 AM EST Treatment [facility] [address] [place] [address] Alley Lucas, PT [facility] Start: 05-01-2024 End: 05-01-2024 ambulatory 05/01/2024 10:00 AM EST Treatment [facility] [address] [place] [address] Alley Lucas, PT [facility] Start: 04-24-2024 End: 04-24-2024 ambulatory [facility] Comment on above: Vertigo (Primary Dx) Start: 04-19-2024 End: 04-19-2024 ambulatory 04/19/2024 2:30 PM EST Evaluation [facility] [address] [facility] [place] [address] Alley Lucas, PT Arrived [facility] Comment on above: Arrived Start: 01-08-2024 COVID-19 Vaccine ( season) COVID-19 Vaccine ( season) [facility] Start: 01-08-2024 Influenza vaccination [facility] Start: 12-20-2023 End: 12-20-2023 Cystourethroscopy CYSTOSCOPY Malignant neoplasm of overlapping sites of bladder ([facility]) 12/20/2023 9:55 AM EDT [facility] Start: 12-18-2023 Adult BMI Screening Adult BMI Screen ing [facility] Start: 01-07-2023 COVID-19 Vaccine ( season) COVID-19 Vaccine () [facility] Start: 01-07-2023 Influenza vaccination Influenza Vacc ine (#1) [facility] Start: 09-09-2022 COVID-19 Vaccine (4 - Pfizer series) COVID-19 Vaccine (4 - Pfizer series) [facility] Start: 10-22-2020 Pneumococcal Vaccine : 65+ Years (2 of 2 - PPSV23 or PCV20) Pneumococcal Vaccine: 65+ Years (2 of 2 - PPSV23 or PCV20) [facility] Start: 02-06-2020 Pneumococcal Vaccine : 65+ Years (2 of 2 - PPSV23 or PCV20) Pneumococcal Vaccine: 65+ Years (2 of 2 - PPSV23 or PCV20) [facility] Start: 04-02-2019 Pneumococcal Vaccine : 65+ Years (2 - PPSV23 or PCV20) Pneumococcal Vaccine: 65+ Years (2 - PPSV23 or PCV20) [facility] Start: 2017 Fall Risk Screening Fall Risk Screen ing [facility] Start: 2002 Zoster Vaccines (1 of 2) Zoste r Vaccines (1 of 2) [facility] Start: 1992 Screening for malign ant neoplasm of breast Mammogram [facility] Start: 1974 DTaP/Tdap/Td Vaccine s (1 - Tdap) DTaP/Tdap/Td Vaccines (1 - Tdap) [facility] Start: 11-03-1971 Administration of varicella zoster vaccine Zoster (Shingles) Vaccine (1 of 2) [facility] Start: 11-03-1971 DTaP,Tdap and Td Vac cines (1 - Tdap) DTaP,Tdap and Td Vaccines (1 - Tdap) [facility] Start: 1970 Adult BMI Follow Up Plan Adult BMI Follow Up Plan [facility] Start: 1970 Diabetes mellitus screening Diabetes Screening [facility] Start: 1970 Hepatitis C screening Hepatitis C Sc [facility] Start: 1964 Depression Screening Depression Scre ening [facility] Start: 1952 Lipid panel Lipid Panel [facility] Start: 1952 Medicare Annual Well ness Visit [facility] Start: 1952 Screening for malign ant neoplasm of colon [facility] Start: 1952 Screening for osteoporosis Bone Dens ity Scan [facility] Start: 1952 Thyroid stimulating hormone measurement TSH Level [facility] Actin smooth muscle IgG Ab [Units/volume] in Serum [facility] Alpha 1 antitrypsin [Mass/volume] in Serum or Plasma [facility] Alpha 1 antitrypsin [Mass/volume] in Serum or Plasma [facility] Alpha 1 antitrypsin phenotyping [Identifier] in Serum or Plasma by Immunofixation [facility] Ceruloplasmin [Mass/volume] in Serum or Plasma [facility] Comprehensive metabo lic 2000 panel - Serum or Plasma [facility] CT Abdomen and Pelvi s WO and W contrast IV [facility] Endomysial antibody IgA level [facility] Gliadin peptide IgA Ab [Units/volume] in Serum [facility] Gliadin peptide IgG Ab [Units/volume] in Serum [facility] Hepatitis A virus Ab [Presence] in Serum by Immunoassay [facility] Hepatitis A virus antibody, IgM type [facility] Hepatitis B core ant ibody measurement [facility] Hepatitis B core ant ibody measurement, IgM type [facility] Hepatitis B virus davis rface Ab [Presence] in Serum [facility] Hepatitis B virus davis rface Ag [Presence] in Serum or Plasma by Immunoassay [facility] Hepatitis C virus Ig G Ab [Presence] in Serum or Plasma by Immunoassay [facility] HFE gene mutations f ound [Identifier] in Blood or Tissue by Molecular genetics method Nominal [facility] Homogenous nuclear A b pattern [Titer] in Serum [facility] Human immunodeficien cy virus antibody test [facility] IgA [Mass/volume] in Serum or Plasma [facility] IgG [Mass/volume] in Serum or Plasma [facility] Lipoprotein a [Moles/volume] in Serum or Plasma [facility] MG Breast - bilatera l Screening [facility] Mitochondria M2 IgG Ab [Units/volume] in Serum [facility] MR Abdomen WO and W contrast IV [facility] Nuclear Ab [Titer] i n Serum [facility] Patient Education Esophageal Fitz ices (DC) Gastritis - ED discharge instructions [facility] Diverticulosis Discharge Instructions [facility] Hemorrhoids Discharge Instructions Know your Meds [facility] Colon Polypectomy Discharge Instructions [facility] Work Phone: Tissue transglutamin ase IgA Ab [Units/volume] in Serum [facility] Tissue transglutamin ase IgG Ab [Units/volume] in Serum [facility] Liver [facility] US Thyroid gland [facility] XR Chest 2 Views [facility] Immunizations Immunization Date Immunization Notes Care Provider Fam collado 07-15-2022 COVID-19 Pfizer (bivalent) Kate Prado Other [facility] 04-17-2021 COVID-19 Vaccine Pfizer - Documentation Purposes Only Kate Prado Other [facility] 09-03-2020 COVID-19 Vaccine Pfizer - Documentation Purposes Only Kate Prado Other [facility] 08-13-2020 COVID-19 Vaccine Pfizer - Documentation Purposes Only Kate Prado Other [facility] 10-23-2019 pneumococcal conjuga te vaccine, 13 valent Kate Prado Other [facility] 02-05-2019 pneumococcal conjuga te vaccine, 13 valent Kate Prado Other [facility] NEGATED: Highlighted row has not occurred!04-09-2024 influenza virus vaccine, unspecified formulation Arvind Berg [facility] NEGATED: Highlighted row has not occurred!04-06-2023 influenza virus vaccine, unspecified formulation Ashely Worthy [facility] NEGATED: Highlighted row has not occurred!07-15-2022 influenza virus vaccine, unspecified formulation Dinorah MORRIS [facility] Payers Date Payer Category Payer Self-pay 2023 Medicare [id number] 2021 Private Health Insurance [employer] [id number] 2020 Commercial [facility] [id number] 2020 Unknown 2017 Medicare [id number] 1959 Medicare [id number] 1959 Unknown [id number] 1952 Unknown [id number] 2.16.840.1.992352.3.579.2. 593 1952 Unknown [id number] 2.16840.1.682428.3.579.2. 593 1952 Unknown [id number] 2.16840.1.865141.3.579.2. 593 1952 Unknown [id number] 2.16.840.1.055401.3.579.2. 356 1952 Unknown [id number] 2.16.840.1.126839.3.579.2. 356 1952 Unknown [id number] 2.16.840.1.764735.3.579.2. 356 1952 Unknown [id number] 2.16.840.1.049867.3.579.2. 1244 1952 Unknown [id number] 2.16.840.1.431374.3.579.2. 727 1952 Unknown [id number] 2.16.840.1.328233.3.579.2. 1259 1952 Unknown [id number] 2.16.840.1.894251.3.579.2. 1259 1952 Unknown [id number] 2.16.840.1.300334.3.579.2. 125 1952 Unknown [id number] 2.16.840.1.156651.3.579.2. 1258 1952 Unknown [id number] 2.16.840.1.581196.3.579.2. 125 1952 Unknown [id number] 2.16.840.1.814472.3.579.2. 125 1952 Unknown [id number] 2.16.840.1.964763.3.579.2. 125 1952 Unknown [id number] 2.16.840.1.122006.3.579.2. 1259 1952 Unknown [id number] 2.16.840.1.045946.3.579.2. 125 1952 Unknown [id number] 2.16.840.1.267839.3.579.2. 125 1952 Unknown [id number] 2.16.840.1.526032.3.579.2. 1259 1952 Unknown [id number] 2.16.840.1.144522.3.579.2. 125 1952 Unknown [id number] 2.16.840.1.828147.3.579.2. 1286 1952 Unknown [id number] 2.16.840.1.991105.3.579.2. 1286 Unknown [id number] 2.16.840.1.060805.3.579.2. 531 Unknown [id number] 2.16.840.1.653208.3.579.2. 531 Unknown [id number] 2.16.840.1.749881.3.579.2. 531 Social History Date Type Detail Facility Start: 07-15-2022 End: 01-22-2025 Tobacco smoking status Ex-smoker (finding) [facility] Tobacco smoking status Never [facility] Start: 10-18-2018 End: 03-25-2023 Sex Assigned At Female [facility] Start: 10-18-2018 End: 03-25-2023 Social alcohol use Social alcohol use -[facility] DO Work Phone: Comment on above: 3x a week; 25 years; Start: 05-09-1983 End: 05-09-1998 History of tobacco use Current smoker [facility] Work Phone: Start: 05-09-1983 End: 05-09-1998 History of tobacco use Cigarette Smoker [facility] Work Phone: Start: 03-25-2023 Alcohol intake Ex-drinker (finding) [facility] Work Phone: Start: 03-25-2023 Alcohol Comment socially [facility] Work Phone: Start: 1950 Sex Assigned At Not on file [facility] Work Phone: Start: 03-15-2023 End: 03-25-2023 Exposure to SARS-CoV-2 (event) Not sure [facility] Start: 12-17-2022 Tobacco use and exposure Smokeless tobacco non-user [facility] Start: 12-22-2022 End: 12-26-2024 Alcoholic beverage intake Current drinker of alcohol (finding) [facility] Start: 12-22-2021 Alcohol Comment wine/beer & li quor daily, 2 per day [facility] Start: 12-12-2014 Sex Female (finding) [facility] Start: 1950 Sex Assigned At Female F [facility] Medical Equipment Procedure Code Equipment Code Equipment Origin al Text Equipment Identifier Dates CATARACT EXTRACT ION W/ INTRAOCULAR LENS Demario Obrien DO 04/01/20 Non Biological Eye L [id number] [facility] Start: 04-01-2020 Functional Status Date Assessment Result Facility 04-09-2024 Functional Status N/A [facility] 04-08-2023 Functional Status N/A [facility] 01-07-2023 Functional Status N/A [facility] 12-03-2022 Functional Status N/A [facility] 09-03-2022 Functional Status N/A [facility] 07-15-2022 Functional Status N/A [facility] Clinical Notes 07-05-2022 to 01-09-2025 Telephone Encounter - Betty Alonso - 01/09/2025 8:54 AM EDTTelephone Encounter - Betty Alonso - 01/09/2025 8:54 AM EDT Note Date & Type Note Facility 01-09-2025 Miscellaneous Notes Formattin g of this note might be different from the original. Yumiko called from Dr. Robles office in [place]. Dr. Robles is requesting a call from Dr. Grissom as he saw her in clinic and wants to update about the patient. Please call Dr. Robles at your earliest convenience at [phone]. The patient is scheduled to be seen next Tuesday. Please call. Thank you. [facility]-09-[facility]25 Telephone encount er Note Yumiko called from Dr. Robles office in [place]. Dr. Robles is requesting a call from Dr. Grissom as he saw her in clinic and wants to update about the patient. Please call Dr. Robles at your earliest convenience at [phone]. The patient is scheduled to be seen next Tuesday. Please call. Thank you. [facility] 12-27-2024 Evaluation note Authored December 27, 2024 8:51am 74-year-old female with hist ory of rectal cancer s/p chemoradiation in 2005 referred to the GI clinic for evaluation of liver cirrhosis. +alternating constipation and diarrhea(predominantly constipation) for years. + Alcohol use for years Patient was counseled about the importance of alcohol abstinence. Will check MELD labs. Will get laboratory for infectious autoimmune or metabolic etiologies of liver diseases. Will arrange for ultrasound and check AFP every 6 months for hepatocellular carcinoma screening. Will arrange for EGD to evaluate for varices Regarding diarrhea, Will get Labs including CBC with diff, TSH, ESR, CRP, fecal calprotectin HIV ab, Celiac panel, fecal elastase, will arrange for colonoscopy [facility] Work Phone: [phone] 548-761808-15-2025 Nurse Note* Perioperative Nursing Note - Ana Ramey RN - 12/21/2024 9:55 AM EDT Preoperative Education Checklist- General Surgery date: 12/25/24 Surgery time: 1030a Arrival time: 930a 1. Bring a photo ID and your insurance card with you the day of surgery. You will check in at the main lobby of the [facility]- registration desk is straight ahead as soon as you walk in. Tell them you are here for surgery. 2. If you have a Living Will/Durable Power of Winding Department Supervisor for Health Care that is not on file here, please bring a copy the day of surgery. 3. Please shower/bathe the night before surgery with the provided soap or wipes. Do not shower the morning of surgery- you will do use wipes when you arrive here at the hospital before getting into your surgical gown. Do not shave the area of your procedure for 2 days prior to your surgery. 4. NO powder, lotion, perfume/cologne, aftershave, make-up, deodorant, or hair products after you have bathed. 5. NO nail argentine/acrylic on at least one finger. If you are having a hand, wrist or foot surgery then all nail argentine and artificial/acrylic nails must be removed from that hand or foot. 6. Avoid ALL Aspirin and non-steroidal anti-inflammatory drugs and certain vitamins (Ibuprofen, Advil, Aleve, Excedrin, Meloxicam, Celebrex, fish/krill oil, etc.) for 7 days prior to surgery as instructed by your surgeon and/or your prescribing doctor. Tylenol IS ALLOWED. If you are on Ticlid, Xarelto, Eliquis, Pradaxa, Plavix or Coumadin, please check with your prescribing doctor for instructions for when to stop them. 7. If you use an inhaler, continue to use it routinely. 8. Nothing to eat or drink (not even water, gum, mints, or hard candy!) AFTER midnight prior to your surgery. 9. Take only medications that you are instructed to on the morning of surgery with a TINY SIP OF WATER. 10. Choose a responsible adult that will be able to drive you home when you are discharged from your hospital stay for your surgery and can stay with you in your home for 24 hours after your procedure. You must NOT drive any vehicle or operate any machinery for 24 hours after surgery. 11. When you dress for your appointment, please wear loose fitting clothing that is appropriate to accommodate your surgical area procedure. BRING WITH YOU ANY DEVICES YOU MAY NEED: DINESH hose, ice machine, sling/swath, brace or special shoe, oversized zip-up or button up shirt, CPAP machine if staying overnight. 12. Do NOT wear jewelry, watches, or any piercings or metal for surgery- leave these valuables and money at home. 13. Do NOT wear contact lenses for surgery- glasses are okay if needed. 14. The anesthesiologist will talk with you the day of surgery and will ask you to sign a Consent Form. 15. Refrain from smoking or any type of tobacco use for at least 8 hours and marijuana for 24 hoursprior to arrival for your surgery. 16. Notify your surgeon if you develop any illness before your surgery. 17. If you are staying overnight, please DO NOT BRING your home medications with you. 18. If you have any questions prior to surgery, please call the Preadmission Testing office at [phone], Mon.-Fri. 7 a.m.-3 p.m. Leave a voicemail if needed. Pre-Surgery Instructions: Medication Instructions amLODIPine (NORVASC) 10 mg tablet Continue as prescribed, take morning of procedure atorvastatin (LIPITOR) 20 mg tablet Continue as prescribed, DO NOT take morning of procedure folic acid (FOLVITE) 1 mg tablet Continue as prescribed, DO NOT take morning of procedure levothyroxine (SYNTHROID, LEVOTHROID) 175 MCG tablet Continue as prescribed, take morning of procedure losartan (COZAAR) 50 mg tablet Continue as prescribed, take morning of procedure nitroglycerin (NITROSTAT) 0.4 MG SL tablet Not Applicable [email or web address] [id number] Miscellaneous Notes* Perioperative Nursing Note - Ana Ramey RN - 12/21/2024 9:55 AM EDT Preoperative Education Checklist- General Surgery date: 12/25/24 Surgery time: 1030a Arrival time: 930a 1. Bring a photo ID and your insurance card with you the day of surgery. You will check in at the main lobby of the [facility]- registration desk is straight ahead as soon as you walk in. Tell them you are here for surgery. 2. If you have a Living Will/Durable Power of Winding Department Supervisor for Health Care that is not on file here, please bring a copy the day of surgery. 3. Please shower/bathe the night before surgery with the provided soap or wipes. Do not shower the morning of surgery- you will do use wipes when you arrive here at the hospital before getting into your surgical gown. Do not shave the area of your procedure for 2 days prior to your surgery. 4. NO powder, lotion, perfume/cologne, aftershave, make-up, deodorant, or hair products after you have bathed. 5. NO nail argentine/acrylic on at least one finger. If you are having a hand, wrist or foot surgery then all nail argentine and artificial/acrylic nails must be removed from that hand or foot. 6. Avoid ALL Aspirin and non-steroidal anti-inflammatory drugs and certain vitamins (Ibuprofen, Advil, Aleve, Excedrin, Meloxicam, Celebrex, fish/krill oil, etc.) for 7 days prior to surgery as instructed by your surgeon and/or your prescribing doctor. Tylenol IS ALLOWED. If you are on Ticlid, Xarelto, Eliquis, Pradaxa, Plavix or Coumadin, please check with your prescribing doctor for instructions for when to stop them. 7. If you use an inhaler, continue to use it routinely. 8. Nothing to eat or drink (not even water, gum, mints, or hard candy!) AFTER midnight prior to your surgery. 9. Take only medications that you are instructed to on the morning of surgery with a TINY SIP OF WATER. 10. Choose a responsible adult that will be able to drive you home when you are discharged from your hospital stay for your surgery and can stay with you in your home for 24 hours after your procedure. You must NOT drive any vehicle or operate any machinery for 24 hours after surgery. 11. When you dress for your appointment, please wear loose fitting clothing that is appropriate to accommodate your surgical area procedure. BRING WITH YOU ANY DEVICES YOU MAY NEED: DINESH hose, ice machine, sling/swath, brace or special shoe, oversized zip-up or button up shirt, CPAP machine if staying overnight. 12. Do NOT wear jewelry, watches, or any piercings or metal for surgery- leave these valuables and money at home. 13. Do NOT wear contact lenses for surgery- glasses are okay if needed. 14. The anesthesiologist will talk with you the day of surgery and will ask you to sign a Consent Form. 15. Refrain from smoking or any type of tobacco use for at least 8 hours and marijuana for 24 hoursprior to arrival for your surgery. 16. Notify your surgeon if you develop any illness before your surgery. 17. If you are staying overnight, please DO NOT BRING your home medications with you. 18. If you have any questions prior to surgery, please call the Preadmission Testing office at [phone], Mon.-Fri. 7 a.m.-3 p.m. Leave a voicemail if needed. Pre-Surgery Instructions: Medication Instructions amLODIPine (NORVASC) 10 mg tablet Continue as prescribed, take morning of procedure atorvastatin (LIPITOR) 20 mg tablet Continue as prescribed, DO NOT take morning of procedure folic acid (FOLVITE) 1 mg tablet Continue as prescribed, DO NOT take morning of procedure levothyroxine (SYNTHROID, LEVOTHROID) 175 MCG tablet Continue as prescribed, take morning of procedure losartan (COZAAR) 50 mg tablet Continue as prescribed, take morning of procedure nitroglycerin (NITROSTAT) 0.4 MG SL tablet Not Applicable documented in this encounter[facility] Radiology Diagnostic study [facility] [place] [address] [place] [address] CT Scan Report Signed Patient: Yaa Duggan MR#: [id number] : 1950 Acct:[id number] Age/Sex: 74 / F ADM Date: 5 Loc: CT Room: Type: [facility] Attending Dr: Kate Prado MD Copies to: Kate Prado MD~ Ordering Provider: Kate Prado MD Date of Service: 12/11/24 CT/CT abdomen pelvis w con: K86.89 - Other specified diseases of pancreas CT ABDOMEN AND PELVIS WITH INTRAVENOUS CONTRAST: CLINICAL HISTORY: Weakness fatigue right-sided abdominal pain COMPARISON: None TECHNIQUE: Spiral images were obtained through the abdomen and pelvis followingthe administration of intravenous contrast. This CT exam was performed using one or more following dose reduction techniques: Automated exposure control, adjustment of the mA and/or kV according to patient size, or use of iterative reconstruction technique. FINDINGS: Lung Bases: [Small left-sided pleural effusion. Bibasilar atelectasis/scarring. Calcified granulomaleft lower lobe] Organs:Cirrhotic appearing liver. No suspicious liver lesion. Portal vein appears patent. Gallbladder has been removed with what appears to be fluid/inflammatory changes involving the gallbladder fossa. No significant CBD dilatation. Pancreas appears unremarkable. Spleen demonstrates granulomas. Adr enal glands appear unremarkable. No enhancing renal mass or hydronephrosis. Aorta appears normal incaliber. GI: Stomach is grossly unremarkable. Small bowel appears nondilated. There is questionable wall thickening and surrounding inflammatory changes involving the second portion of the duodenum. No obstruction is seen. Colonic diverticulosis.[ Pelvis:[Urinary bladder is distended to the level of L4. A focal area of dependent low density is seen within the urinary bladder lumen. Uterus has been removed.] Peritoneum/Retroperitoneum: Trace ascites. No free air. No lymphadenopathy involving the right upper quadrant. Abd wall/Bones:Abdominal wall demonstrates no acute findings. Osseous structures demonstrate degenerative change.[ CT/CT abdomen pelvis w con IMPRESSION: Cirrhotic appearing liver without mass. There is presumed reactive right upper quadrant lymphadenopathy. There appears be inflammatory changes in the region of the gallbladder fossa extending along the second portion duodenum with wall thickening involving the second portion of duodenum. Underlying duodenitis/ulcer disease cannot BE excluded. Correlation with endoscopy is suggested. Trace ascites. Urinary bladder is distended to the level of L4 with a focal area of dependent low density seen within urinary bladder lumen. Urinary retention cannot BE excluded. Further evaluation of the potentiallow-density structure by ultrasound is suggested. Small left-sided pleural effusion. Colonic diverticulosis. Impression dictated by: Jersey Warner Jr., D.OHeriberto 12/11/2024 2:39 PM Dictation Location: [place] [address] Transcribed By: [facility] 12/11/24 1439 Dictated By: Jersey Warner Jr, DO 12/11/24 1433 Signed By: 12/11/24 1439 [facility]07-14-2025 Evaluation note* Diagnosis Onset Date Resolution Status Admit Date BMI 34.0-34.9,adult acute November 19, 2024 11:16am Essential (primary) hypertension acu te November 19, 2024 11:16am History of bladder cancer acute November 19, 2024 11:16am History of rectal cancer acute November 19, 2024 11:16am Hypothyroidism acute November 19, 2024 11:16am Medicare annual wellness vis it, subsequent acute November 19, 2024 11:16am Pure hypercholesterolemia acute November 19, 2024 11:16am Right-sided chest pain acute Ju 2024 11:16am Screening mammogram for vic [facility] cancer acute November 19, 2024 11:16am Thyroid nodule acute November 19, 2024 11:16am [facility] Work Phone: 1(594) 269-622112-24-2024 History of Present illness Narrative* Alley Lucas, PT - 05/01/2024 10:00 AM EST Images from the original note were not [...] slightly improved with repeated Eply Maneuvers; will re- assess in one week, however pt advised to contract referring provider due to continued sx's and overall no change with treatment. Outcome Measure: Dizziness Handicap Inventory (DHI): 46/100 Rehab Diagnosis: dizziness Short Term Goal: To be met in 2 weeks Goal 1: Pt to be instructed in home exercise program. [place] Line Attendant Goals: To be met in 10 weeks [...] Please sign below. Date: documented in this encounterHawthorn Children[facility] [id number] History of Present illness Narrative* Alley Lucas, PT - 04/24/2024 9:00 AM EST Images from the original note were not [...] to be instructed in home exercise program. Long-Term Goals: To be met in 10 weeks [...] Please sign below. Date: documented in this encounterHawthorn Children's Psychiatric [id number] History of Present illness Narrative* Alley Lucas, PT - 04/19/2024 2:30 PM EST Images from the original note were not [...] noted to have more torsion. Repositioned for leftHallpike. Will re-assess next week. Outcome Measure: Dizziness Handicap Inventory (DHI): 46/100 Rehab Diagnosis: dizziness Short Term Goal: To be met in 2 weeks Goal 1: Pt to be instructed in home exercise program. Virginia Line Attendant Goals: To be met in 10 weeks [...] Please sign below. Date: documented in this encounterHawthorn Children's Psychiatric [id number] Miscellaneous Notes* Perioperative Nursing Note - Diana Steen RN - 12/19/2023 4:20 PM EDT Preoperative Education Checklist- General Surgery date: 12/20/23 Surgery time: 1000 Arrival time: 0900 1. Bring a photo ID and your insurance card with you the day of surgery. You will check in at the main lobby of the [facility]- registration desk is straight ahead as soon as you walk in. Tell them you are here for surgery. 2. If you have a Living Will/Durable Power of Winding Department Supervisor for Health Care that is not on file here, please bring a copy the day of surgery. 3. Please shower/bathe the night before surgery with the provided soap or wipes. Do not shower the morning of surgery- you will do use wipes when you arrive here at the hospital before getting into your surgical gown. Do not shave the area of your procedure for 2 days prior to your surgery. 4. NO powder, lotion, perfume/cologne, aftershave, make-up, deodorant, or hair products after you have bathed. 5. NO nail argentine/acrylic on at least one finger. If you are having a hand, wrist or foot surgery then all nail argentine and artificial/acrylic nails must be removed from that hand or foot. 6. Avoid ALL Aspirin and non-steroidal anti-inflammatory drugs and certain vitamins (Ibuprofen, Advil, Aleve, Excedrin, Meloxicam, Celebrex, fish/krill oil, etc.) for 7 days prior to surgery as instructed by your surgeon and/or your prescribing doctor. Tylenol IS ALLOWED. If you are on Ticlid, Xarelto, Eliquis, Pradaxa, Plavix or Coumadin, please check with your prescribing doctor for instructions for when to stop them. 7. If you use an inhaler, continue to use it routinely. 8. Nothing to eat or drink (not even water, gum, mints, or hard candy!) AFTER midnight prior to your surgery. 9. Take only medications that you are instructed to on the morning of surgery with a TINY SIP OF WATER. 10. Choose a responsible adult that will be able to drive you home when you are discharged from your hospital stay for your surgery and can stay with you in your home for 24 hours after your procedure. You must NOT drive any vehicle or operate any machinery for 24 hours after surgery. 11. When you dress for your appointment, please wear loose fitting clothing that is appropriate to accommodate your surgical area procedure. BRING WITH YOU ANY DEVICES YOU MAY NEED: DINESH hose, ice machine, sling/swath, brace or special shoe, oversized zip-up or button up shirt, CPAP machine if staying overnight. 12. Do NOT wear jewelry, watches, or any piercings or metal for surgery- leave these valuables and money at home. 13. Do NOT wear contact lenses for surgery- glasses are okay if needed. 14. The anesthesiologist will talk with you the day of surgery and will ask you to sign a Consent Form. 15. Refrain from smoking or any type of tobacco use for at least 8 hours and marijuana for 24 hoursprior to arrival for your surgery. 16. If a GREEN BLOOD band is given to you, please bring it with you for the day of surgery. 17. Notify your surgeon if you develop any illness before your surgery. 18. If you are staying overnight, please DO NOT BRING your home medications with you. 19. If you have any questions prior to surgery, please call the Preadmission Testing office at [phone], Mon.-Fri. 7 a.m.-3 p.m. Leave a voicemail if needed. Pre-Surgery Instructions: Medication Instructions atorvastatin (LIPITOR) 20 mg tablet Check with prescribing doctor for instructions cholestyramine (QUESTRAN) 4 gram powder Check with prescribing doctor for instructions levothyroxine (SYNTHROID, LEVOTHROID) 175 MCG tablet Check with prescribing doctor for instructions losartan (COZAAR) 50 mg tablet Check with prescribing doctor for instructions documented in this encounterSelect [facility]08-12-2024 Nurse Note* Perioperative Nursing Note - Diana Steen RN - 12/19/2023 4:20 PM EDT Preoperative Education Checklist- General Surgery date: 12/20/23 Surgery time: 1000 Arrival time: 0900 1. Bring a photo ID and your insurance card with you the day of surgery. You will check in at the main lobby of the [facility]- registration desk is straight ahead as soon as you walk in. Tell them you are here for surgery. 2. If you have a Living Will/Durable Power of Winding Department Supervisor for Health Care that is not on file here, please bring a copy the day of surgery. 3. Please shower/bathe the night before surgery with the provided soap or wipes. Do not shower the morning of surgery- you will do use wipes when you arrive here at the hospital before getting into your surgical gown. Do not shave the area of your procedure for 2 days prior to your surgery. 4. NO powder, lotion, perfume/cologne, aftershave, make-up, deodorant, or hair products after you have bathed. 5. NO nail argentine/acrylic on at least one finger. If you are having a hand, wrist or foot surgery then all nail argentine and artificial/acrylic nails must be removed from that hand or foot. 6. Avoid ALL Aspirin and non-steroidal anti-inflammatory drugs and certain vitamins (Ibuprofen, Advil, Aleve, Excedrin, Meloxicam, Celebrex, fish/krill oil, etc.) for 7 days prior to surgery as instructed by your surgeon and/or your prescribing doctor. Tylenol IS ALLOWED. If you are on Ticlid, Xarelto, Eliquis, Pradaxa, Plavix or Coumadin, please check with your prescribing doctor for instructions for when to stop them. 7. If you use an inhaler, continue to use it routinely. 8. Nothing to eat or drink (not even water, gum, mints, or hard candy!) AFTER midnight prior to your surgery. 9. Take only medications that you are instructed to on the morning of surgery with a TINY SIP OF WATER. 10. Choose a responsible adult that will be able to drive you home when you are discharged from your hospital stay for your surgery and can stay with you in your home for 24 hours after your procedure. You must NOT drive any vehicle or operate any machinery for 24 hours after surgery. 11. When you dress for your appointment, please wear loose fitting clothing that is appropriate to accommodate your surgical area procedure. BRING WITH YOU ANY DEVICES YOU MAY NEED: DINESH hose, ice machine, sling/swath, brace or special shoe, oversized zip-up or button up shirt, CPAP machine if staying overnight. 12. Do NOT wear jewelry, watches, or any piercings or metal for surgery- leave these valuables and money at home. 13. Do NOT wear contact lenses for surgery- glasses are okay if needed. 14. The anesthesiologist will talk with you the day of surgery and will ask you to sign a Consent Form. 15. Refrain from smoking or any type of tobacco use for at least 8 hours and marijuana for 24 hoursprior to arrival for your surgery. 16. If a GREEN BLOOD band is given to you, please bring it with you for the day of surgery. 17. Notify your surgeon if you develop any illness before your surgery. 18. If you are staying overnight, please DO NOT BRING your home medications with you. 19. If you have any questions prior to surgery, please call the Preadmission Testing office at [phone], Mon.-Fri. 7 a.m.-3 p.m. Leave a voicemail if needed. Pre-Surgery Instructions: Medication Instructions atorvastatin (LIPITOR) 20 mg tablet Check with prescribing doctor for instructions cholestyramine (QUESTRAN) 4 gram powder Check with prescribing doctor for instructions levothyroxine (SYNTHROID, LEVOTHROID) 175 MCG tablet Check with prescribing doctor for instructions losartan (COZAAR) 50 mg tablet Check with prescribing doctor for instructions [facility] [employer] [id number] Evaluation note* Encounter Date Diagnosis Assessment Notes Treatment Notes Treatment Clinical Notes Apr, Bronchitis (ICD-10 - J40) Take antibiotic as directed. If develop wheezing, chest tightness, itching, bad cough, blue skin color, seizures, swelling of face, lips, tongue, or throat report to ED. [facility] Other [id number] Hospital Discharge instructions Patient Education 04/08/2023 10:19:26 [...] Bulgur wheat. Millet. Quinoa. Bran muffins. Popcorn. Hershey wafer crackers. Meats and other proteins [place] beans, kidney beans, and pritchard beans. Soybeans. [...] Cream cheese. Sour cream. Fats and oils [place]. Beverages Soft drinks. Other foods Cakes and [...] provider. Document Revised: 08/28/2020 Document Reviewed: 08/28/2020 [employer] Patient Education 2022 [email or web address]. Follow Up Care 01/07/2023 13:44:26 With:Ashely Worthy CNP Address: When:1 year [facility] 11-17-2023 History of Present illness Narrative* Eleazar Nagy MD - 03/25/2023 1:10 PM EST [...] whether serious comorbidity present documented in this [facility] Work Phone: 1(170) 270-883211-17-2023 Instructions* Patient Instructions* Aleja Trinidad LPN - [...] Follow up as needed documented [facility]Good [facility] Work Phone: 1(168) 863-843310-27-2023 Evaluation note* Encounter Date Diagnosis Assessment Notes Treatment Notes Treatment Clinical Notes Feb, SOB (shortness of breath) (ICD-10 - R06.02) Discussed recent normal cardiac cath. Add steroid to help with dyspnea symptom. Check CXR and EKG to be complete. Assess renal function in near future with lab to address the urinary symptoms. [facility] Other 09-15-2023 History general Narrative - Reported* Type Description Date Medical History Hypothyroidism Medical History Hypertension Medical History Bladder Cancer Medical History Anal Cancer Surgical History Hernia 2015 Surgical History Heart Cath 01/21/2023 Hospitalization History See Surgical Hx [facility] Other 09-11-2023 Evaluation note* Encounter Date Diagnosis [...] unspecified type (ICD-10 - R06.00) as above [facility] Other 09-01-2023 Hospital Discharge instructions Patient Education [...] oral rehydration solution (ORS). This is an zkiq-dtt-cseiehu medicine that helps return your body to [...] drinks, sports drinks, and soda. Eat bland, jmcp-ma-zykxzj foods in small amounts as you are able. These foods include bananas, applesauce, rice, lean meats, toast, and crackers. Avoid alcohol. Avoid spicy or fatty foods. Medicines Take ixxh-ptt-bmgddcb and prescription medicines only as told by your health care provider. If you were prescribed an antibiotic medicine, take it as told by your health care provider. Do notstop using the antibiotic even if you start to feel better. General instructions Wash your hands often using soap and water. If soap and water are not available, use a hand ad operations associate. Others in the household should wash their [...] soap and water are not available, usehand ad operations associate. Contact a health care provider if your diarrhea gets worse or you have new symptoms. Get help right away if you have signs of dehydration. This information is not intended to replace advice given to you by your health care provider. Make sure you discuss any questions you have with your health care provider. Document Revised: 11/04/2021 Document Reviewed: 11/04/2021 [employer] Patient Education 2022 [email or web address]. Follow Up Care 12/03/2022 14:02:26 With:Ashely Worthy CNP Address: When:3 months [facility] 08-31-2023 Evaluation note* Encounter [...] call w bps on 01/11 for followup. [facility] Other 07-28-2023 Hospital Discharge instructions Patient Education [...] oral rehydration solution (ORS). This is an itld-fgt-lnuqttn medicine that helps return your body to [...] drinks, sports drinks, and soda. Eat bland, qksm-fu-bhrgra foods in small amounts as you are able. These foods include bananas, applesauce, rice, lean meats, toast, and crackers. Avoid alcohol. Avoid spicy or fatty foods. Medicines Take fiqx-erd-oubensd and prescription medicines only as told by your health care provider. If you were prescribed an antibiotic medicine, take it as told by your health care provider. Do notstop using the antibiotic even if you start to feel better. General instructions Wash your hands often using soap and water. If soap and water are not available, use a hand ad operations associate. Others in the household should wash their [...] soap and water are not available, usehand ad operations associate. Contact a health care provider if your diarrhea gets worse or you have new symptoms. Get help right away if you have signs of dehydration. This information is not intended to replace advice given to you by your health care provider. Make sure you discuss any questions you have with your health care provider. Document Revised: 11/04/2021 Document Reviewed: 11/04/2021 [employer] Patient Education 2022 [email or web address]. Follow Up Care 09/03/2022 14:00:02 With:Ashely Worthy CNP Address: When:1 month [facility] 04-28-2023 Hospital Discharge instructions [...] hard liquor (44 mL). General instructions Take ycbh-twf-ebzfclp and prescription medicines only as told by [...] provider. Document Revised: 08/13/2020 Document Reviewed: 08/13/2020 [employer] Patient Education 2022 [email or web address]. 09/03/2022 13:29:38 Proctitis Proctitis Proctitis is swelling [...] Follow these instructions at home: Medicines Take wnnt-kzl-asbrgce and prescription medicines only as told by [...] to keep your urine pale yellow. ?Take lsje-njz-ceamwnc or prescription medicines. ?Eat foods that are [...] provider. Document Revised: 11/04/2021 Document Reviewed: 11/04/2021 [employer] Patient Education 2022 [email or web address]. Follow Up Care 08/30/2022 09:35:31 With:Ashely Worthy CNP Address: When:3 months [facility] 03-22-2023 Evaluation note* Encounter Date Diagnosis Assessment Notes Treatment Notes Treatment Clinical Notes Jul, Elevated fasting glucose (ICD-10 - R73.01) [facility] Other 03-14-2023 Evaluation + Plan note Diagnostic Tests Pending * Pancreatic Elastase, Fecal 07/20/22 * Giardia lamblia, Direct Detection EIA 07/20/22 * O & P Exam, Routine 07/20/22 [facility]03-09-2023 Evaluation + Plan note Future Scheduled Tests Laboratory* Pancreatic Elastase, Fecal 07/15/22 * Fecal WBC Lactoferrin 07/15/22 * Giardia lamblia, Direct Detection EIA 07/15/22 * O & P Exam, Routine 07/15/22 * Clostridium Difficile PCR 07/15/22 * Enteric Panel by PCR 07/15/22 [facility] 03-09-2023 Evaluation + Plan note Diagnostic Tests Pending * t-Transglutaminase IgA 07/15/22 * IgA, Quant. 07/15/22 Future Scheduled Tests Laboratory* Pancreatic Elastase, Fecal 07/15/22 * Fecal WBC Lactoferrin 07/15/22 * Giardia lamblia, Direct Detection EIA 07/15/22 * O & P Exam, Routine 07/15/22 * Clostridium Difficile PCR 07/15/22 * Enteric Panel by PCR 07/15/22 [facility]02-28-2023 Evaluation note* Encounter Date Diagnosis Assessment Notes Treatment Notes Treatment Clinical Notes Jun, Pure hypercholestero lemia (ICD-10 - E78.00) [facility] Other 02-27-2023 Evaluation note* Encounter Date Diagnosis [...] yearly screening mammogram. Screening mammogram ordered today. [facility] Other Chimr complaint Narrative - Reported* YAA DUGGAN is [...] of her progressive dyspnea and chest pain. [facility] [address] DO Work Phone: Evaluation + Plan note Future Appointments Appointment Date:12/03/2022 01:20:00 PM Scheduled Provider:Ashely Worthy CNP Location:[facility] Appointment Type:[facility] Follow Up [facility] Evaluation + Plan note Future Appointments Appointment Date:12/03/2022 01:20:00 PM Scheduled Provider:Ashely Worthy CNP Location:[facility] Appointment Type:[facility] Follow Up Diagnostic Tests Pending * Celiac Disease Comprehensive [facility] App[facility]ments Appointment Date:04/08/2023 10:00:00 AM Scheduled Provider:Ashely Worthy CNP Location:[facility] Appointment Type:[facility] Follow Up [facility] Evaluation + Plan note Future Appointments Appointment Date:04/09/2024 10:00:00 AM Scheduled Provider:Ashely Worthy CNP Location:[facility] Appointment Type:[facility] Follow Up [facility] Evaluation + Plan note Future Appointments Appointment Date:01/07/2023 01:00:00 PM Scheduled Provider:Ashely Worthy CNP Location:[facility] Appointment Type[facility] Follow Up [facility] Evaluation noteNo [place] [facility] Other Evaluation note* Diagnosis Essential hypertension, benign- Primary Mixed hyperlipidemia Atypical chest pain Other chest pain Class 2 obesity with body mass index (BMI) of 35.0 to 35.9 in adult, unspecified obesity type, unspecified whether serious comorbidity present documented in this encounter [facility] Work Phone: Evaluation note* Diagnosis Vertigo- [...] Thyroid nodule acute November 19, 2024 11:16am [facility] Work Phone: Evaluation note* Author [facility] Authored December 27, 2024 8: 51am 74-year-old female with hist ory of rectal cancer s/p chemoradiation in 2005 referred to the GI clinic for evaluation of liver cirrhosis. +alternating constipation and diarrhea(predominantly constipation) for years. + Alcohol use for years Patient was counseled about the importance of alcohol abstinence. Will check MELD labs. Will get laboratory for infectious autoimmune or metabolic etiologies of liver diseases. Will arrange for ultrasound and check AFP every 6 months for hepatocellular carcinoma screening. Will arrange for EGD to evaluate for varices Regarding diarrhea, Will get Labs including CBC with diff, TSH, ESR, CRP, fecal calprotectin HIV ab, Celiac panel, fecal elastase, will arrange for colonoscopy [facility] Work Phone: Hisynvz general Narrative - Reported* Type Description Date Medical History Hypothyroidism Medical History Hypertension Medical History Bladder Cancer Medical History Anal Cancer Surgical History Hernia 2014 [facility] Other History general Narrative - Reported* Type Description Date Medical History Hypothyroidism Medical History Hypertension Medical History Bladder Cancer Medical History Anal Cancer Surgical History Hernia 2014 Hospitalization History See Surgical Hx [facility] [employer] Other Hospital course Narrative No data available for this section [facility] Hospital Discharge instructions No data available for this section [facility] Hospital Discharge instructions Additional Instructions DISCHARGE INSTRUCTIONS FOR UPPER ENDOSCOPY WHAT TO EXPECT: - You may feel full, gassy or cramping after your procedure. In some cases, this may be from a few hours to a day. Walking may help relieve the discomfort. - Your throat may feel sore today from the scope that the doctor passed through your throat to visualize your stomach. Take a throat lozenge or suck on ice to ease the discomfort. - You may notice some streaks of blood in your sputum if the doctor has taken a biopsy. - You should begin to recover from anesthesia within 1 hour of the procedure, however may feel groggy for the next 24 hours. DO's AND DON'Ts: - Call your doctor right away if you have a hard abdomen, severe pain, vomiting or if you cough up large amounts of blood. - Call your doctor if you develop any rashes, hives or difficulty breathing. - If you take 81 mg aspirin for your heart it is safe to resume this medication. - If you take other blood thinner medications your doctor will instruct you when these can safely be resumed. - Do NOT drive for 24 hours. - Do NOT operate machinery such as power tools, lawn mowers, snow blowers, sewing machines, etc. for 24 hours. - Avoid alcoholic beverages and drugs for allergies, nerves, or sleep. - Do NOT stay alone. Do NOT leave your child unattended. - Do NOT make important personal or business decisions or sign any legal documents. - Eat solid foods and drink liquids in smaller amounts than usual until normal appetite returns. If you should experience an upset stomach, liquids high in sugar content (soda, Billy-Aid, non-acid juices) are recommended. - Do NOT smoke. - Do take it easy today. You need not stay in bed, but avoid strenuous activities such as jogging or working out. DISCHARGE INSTRUCTIONS FOR COLONOSCOPY WHAT TO EXPECT: - You may feel full, gassy or cramping after your procedure. In some cases, this may be from a few hours to a day. Walking may help relieve the discomfort. - If you have polyp(s) removed you may note some minor bloody discharge after your first bowel movements. - You should begin to recover from anesthesia within 1 hour of the procedure, however may feel groggy for the next 24 hours. DO's AND DON'Ts: - Call your doctor right away if you have a hard abdomen, sever pain, are passing lots of bright red blood or clots. - Call your doctor if you develop any rashes, hives or difficulty breathing. - Let your doctor know if you have not had a bowel movement by 3 days after your procedure. - If you take 81 mg aspirin for your heart it is safe to resume this medication. - If you take other blood thinner medications your doctor will instruct you when these can safely be resumed. - Do NOT drive for 24 hours. - Do NOT operate machinery such as power tools, lawn mowers, snow blowers, sewing machines, etc. for 24 hours. - Avoid alcoholic beverages and drugs for allergies, nerves, or sleep. - Do NOT stay alone. Do NOT leave your child unattended. - Do NOT make important personal or business decisions or sign any legal documents. - Eat solid foods and drink liquids in smaller amounts than usual until normal appetite returns. If you should experience an upset stomach, liquids high in sugar content (soda, Billy-Aid, non-acid juices) are recommended. - You can resume normal activities tomorrow. FOLLOW UP & RECOMMENDATIONS: -Notify the doctor if you have any problems. -Repeat colonoscopy in 5 years. - Start pantoprazole 40 mg daily - Office number [phone]. [facility] Work Phone: InstructionsNot on filedocumented in this encounter [facility]ructionsNot on filedocumented in this encounter [facility] SystemInstructionsNot on filedocumented in this encounter [facility] System[facility] note No data available for this section [facility] Reason for referral (narrative)No reason for referral information available[facility] Work Phone: Reason for visit Narrative* Rehabilitation - Outpatient (Routine) - Authorized Specialty Diagnoses / Procedures Referred By Contac t Referred To Contact Physical Therapy Diagnoses Vertigo Procedures [place] PHYSICAL THERAPY EVALUATION LOW COMPLEX 20 MINS [place] OFFICE/OUTPATIENT NEW HIGH MDM EVALUATION Kate Prado MD [address] [place] [phone] Phone: tel: fax: Alley Lucas, PT Referral ID Status Reason Start Date Expiration Date V isits Requested Visits Authorized [id number] Authorized 04/19/2024 10/16/2024 15 15 [facility] - Outpatient (Routine) - Authorized Specialty Diagnoses / Procedures Referred By Contac t Referred To Contact Physical Therapy Diagnoses Vertigo Procedures [place] PHYSICAL THERAPY EVALUATION LOW COMPLEX 20 MINS [place] OFFICE/OUTPATIENT NEW HIGH MDM EVALUATION Kate Prado MD [address] [place] [phone] Phone: tel: fax: Alley Lucas, PT Referral ID Status Reason Start Date Expiration Date V isits Requested Visits Authorized [id number] Authorized 04/19/2024 05/08/2024 15 15 [facility] [...] heart surgery Unknown father Unknown mother Unknown Relationship Condition Age at Onset Recorded Date/T rohith brother History of heart surgery Unknown father Unknown mother Unknown Lupus Unknown Advance Directives No Advanced Directives Records Found Advance Directive Response Recorded Date/ Time Advance Directives No January 8:24am Reason for Referral Reason Labile BPs, dyspnea, chest pressure, jaw pain, leaving for vacation on 01/29. Today and last OV w labs Diagnosis 1 Essential (primary) hypertension (I10) Referral Organization [facility] brittani Referring Provider First Name Kate Referring Provider Last Name Eve Referring Provider Specialty [facility] [employer] Referred Organization [facility] enter Referred Address [address],[address] Referred Provider Specialty Cardiology Referral Priority Routine Reason 07/15/22 Chronic d iarrhea Diagnosis 1 Chronic diarrhea (K5 2.9) Referral Organization [facility] brittani Referring Provider First Name Kate Referring Provider Last Name Eve Referring Provider Specialty [facility] cine Referred Organization [facility] Referred Provider Dinorah Morris Referred Address [address] [place], [place],[phone] Referred Provider Specialty Gastroentero logy Referral Priority [...] Thyroid nodule November 19, 2024 11:1 6am Chief Complaint Admit Date wellness November 19, 2024 11:1 6am K86.89 December 11, 2024 12: 17pm Reason for Visit Admit Date BMI 34.0-34.9,adult November 19, 2024 11:1 6am Essential (primary) hypertension November 192024 11:16am History of bladder cancer November 19 11:16am History of rectal cancer November 19, 2024 11:16am Hypothyroidism November 19, 2024 11:1 6am Medicare annual wellness visit, subseque nt November 19, 2024 11:16am Pure hypercholesterolemia November 19 11:16am Right-sided chest pain November 19, 2024 1 1:16am Screening mammogram for breast cancer Ju ly 2024 11:16am Thyroid nodule November 19, 2024 11:1 6am Chief Complaint Admit Date wellness November 19, 2024 11:1 6am K86.89 December 11, 2024 12: 17pm ELEVATED LFTS,CIRRHOTIC LIVER,DISEASE OF PANCREAS December 27, 2024 7:54am Reason for Visit Admit Date BMI 34.0-34.9,adult November 19, 2024 11:1 6am Essential (primary) hypertension November 192024 11:16am History of bladder cancer November 19 11:16am History of rectal cancer November 19, 2024 11:16am Hypothyroidism November 19, 2024 11:1 6am Medicare annual wellness visit, subseque nt November 19, 2024 11:16am Pure hypercholesterolemia November 19 11:16am Right-sided chest pain November 19, 2024 1 1:16am Screening mammogram for breast cancer Ju ly 2024 11:16am Thyroid nodule November 19, 2024 11:1 6am Cirrhosis December 27, 2024 7: 54am Dysphagia December 27, 2024 7: 54am Elevated LFTs December 27, 2024 7: 54am History of rectal cancer December 27 7:54am Pancreatic disease December 27, 2024 7: 54am Chief Complaint Admit Date wellness November 19, 2024 11:1 6am K86.89 December 11, 2024 12: 17pm ELEVATED LFTS,CIRRHOTIC LIVER,DISEASE OF PANCREAS December 27, 2024 7:54am K74.60 December 28, 2024 9: 37am Chief Complaint Admit Date wellness November 19, 2024 11:1 6am K86.89 December 11, 2024 12: 17pm ELEVATED LFTS,CIRRHOTIC LIVER,DISEASE OF PANCREAS December 27, 2024 7:54am K74.60 December 28, 2024 9: 37am hx of rectal ca/dysphagia/cirrhosis Sept ember 2024 10:35am Additional Source Comments INFORMATION SOURCE (unrecogn ized section and content) DATE CREATED AUTHOR 07/14/2022 [facility] DATE CREATED AUTHOR AUTHOR'S ORGANIZ ATION 01/21/2023 [employer] DATE CREATED AUTHOR AUTHOR'S ORGANIZ ATION 01/25/2023 [facility] DATE CREATED AUTHOR AUTHOR'S ORGANIZ ATION 03/28/2023 [facility] DATE CREATED AUTHOR AUTHOR'S ORGANIZ ATION 04/10/2024 [facility] DATE CREATED AUTHOR AUTHOR'S ORGANIZ ATION 05/03/2024 [facility] EPIC DATE CREATED AUTHOR AUTHOR'S ORGANIZ ATION 01/05/2025 [facility] DATE CREATED AUTHOR AUTHOR'S ORGANIZ ATION 01/23/2025 [facility] Patient Care team informatio n (unrecognized section and content) Switchboard Troubleshooter Relationship Specialty [place] [address] [place] [address], [place] [address] PCP - General 01/19/23 Switchboard Troubleshooter Relationship Specialty [place] [address] [place] [phone] PCP - General Family Medicine 12/26/20 Team Status: Active Member Role Status Dates Kate Prado MD Primary Care Provider Active Team Status: Inactive Member Role Status Dates Kate Prado MD Primary Care Provider Active Start: November 19, 2024 End: November 19, 2024 Kate Prado MD Attending Provider Active St art: November 19, 2024 End: November 19, 2024 Team Status: Inactive Member Role Status Dates Kate Prado MD Primary Care Provider Active Start: December 11, 2024 End: December 11, 2024 Kate Prado MD Attending Provider Active St art: December 11, 2024 End: December 11, 2024 Switchboard Troubleshooter Relationship Specialty Start Date End Date Kate Prado MD [address] [place] [phone] PCP - General Family Medicine 12/26/20 Team Status: Inactive Member Role Status Dates Kate Prado MD Primary Care Provider Active Start: December 27, 2024 End: December 27, 2024 Dimple Caraballo MD Attending Provider Active Start: December 27, 2024 End: December 27, 2024 Team Status: Inactive Member Role Status Dates Kate Prado MD Primary Care Provider Active Start: December 28, 2024 End: December 28, 2024 Dimple Caraballo MD Attending Provider Active Start: December 28, 2024 End: December 28, 2024 Switchboard Troubleshooter Relationship Specialty Start Date End Date Kate Prado MD [address] [place] [phone] PCP - General Family Medicine 12/26/20 Team Status: Active Member Role Status Dates Kate Prado MD Primary Care Provider Active Start: January 01, 2025 Emily Robles MD Attending Provider Active St art: January 01, 2025 Team Status: Active Member Role Status Dates Kate Prado MD Primary Care Provider Active Start: January 22, 2025 Dimple Caraballo MD Attending Provider Active Start: January 22, 2025 Dimple Caraballo MD Other Provider Active Start: Jan REASON FOR VISIT (unrecogniz ed section and [...] BE BASED ON THE PRIMARY CLINICAL RECORDS. [facility] [employer] provides no warranty or guarantee of the accuracy or completeness of information in this document.
--- NOTE | 2025-01-24 09:38 | MR_ITS ---
[address] [address] Patient Name: JUSTIN DUGGAN MRN: [id number] date: 1950 Sex: F Assigned Patient Location: MRI Current Patient Location: Accession/Order Number: [id number] Exam Date: 01/24/2025 09:47 Report Date: 01/25/2025 17:22 At the request of: ABISAI SANTIAGO MD Procedure: MR abdomen wo/w con MR abdomen wo/w con 01/24/2025 10:53 AM SIGNS AND SYMPTOMS: ^Malignant Neoplasm Of Bladder, Malignant Neoplasm Rectum TECHNIQUE: Multiplanar multisequence MR images of the abdomen were obtained with and without IV contrast. CONTRAST: 19 mL of intravenous Dotarem COMPARISON: 01/14/2025 FINDINGS: Lower Chest: There is a moderate left-sided pleural effusion. ABDOMEN: Liver: The liver has lobulated margins suggesting hepatic cirrhosis. No mass or abnormal post contrast-enhancement. Bile Ducts: Normal caliber. Gallbladder: Previously removed Pancreas: Within normal limits. Spleen: Within normal limits. Adrenals: Within normal limits. Kidneys: Within normal limits. Pelvis: There is partial visualization of a complex cystic structure within the upper pelvis containing T2 hyperintense areas of nodularity along the wall. The largest of these measures 2.4 cm. These areas are not included on the postcontrast images. This is concerning for a recurrent cystic and solid metastatic process. Bowel: Normal caliber. Mesenteric Lymph Nodes: No enlarged mesenteric lymph nodes. Peritoneum: There is intra-abdominal ascites. Vessels: Satisfactory flow voids are noted in the abdominal aorta and inferior vena cava, and portal veins. Retroperitoneum: Within normal limits. Abdominal Wall: Within normal limits. Bones: Within normal limits. MR/MR abdomen wo/w con IMPRESSION: There is partial visualization of a complex cystic structure within the upper pelvis containing T2 hyperintense areas of nodularity along the wall. The largest of these measures 2.4 cm. These areas are not included on the postcontrast images. This is concerning for a recurrent cystic and solid metastatic process. Findings suggest hepatic cirrhosis with intra-abdominal ascites. There is a moderate left-sided pleural effusion. Impression dictated by: Vasile Ragsdale M.D. 01/25/2025 5:22 PM Dictation Location: [place] [address] Electronically authenticated by: [id number] Y Date: 01/25/2025 17:22
--- NOTE | 2025-01-24 09:38 | US_ITS ---
The [address] [address] Patient Name: JUSTIN DUGGAN MRN: [id number] date: 1950 Sex: F Assigned Patient Location: MRI Current Patient Location: MRI Accession/Order Number: [id number] Exam Date: 01/24/2025 10:40 Report Date: 01/24/2025 11:36 At the request of: ABISAI SANTIAGO MD Procedure: US pelvis w/ transvaginal ULTRASOUND PELVIS WITH TRANSVAGINAL CLINICAL DATA: Follow-up cystic pelvic mass on PET/CT. Prior hysterectomy. COMPARISON: PET/CT 01/14/2025 Real-time ultrasound evaluation the pelvis was performed utilizing both a transabdominal and transvaginal approach. TRANSABDOMINAL: The uterus is not identified, compatible with history. There is a large cystic appearing mass arising from the pelvis measuring at least 17.6 x 11.5 x 14.5 cm in size. This has a intraluminal, peripheral ringlike cystic areas within it measuring up to 3.2 cm in size. The appearance correlates with findings concerning on the CT study. There is no obvious surrounding ovarian tissue. No separate ovaries are identified on either side. TRANSVAGINAL: Transvaginal scans were performed to better evaluate the pelvis. The uterus is surgically absent. The cystic pelvic mass is only partially visualized due to overall size. By this approach, there are low level intraluminal echoes suggesting debris. There are also multiple peripheral ringlike cystic areas which appear to have more simple anechoic fluid. No obvious ovarian tissue is identified. There is a small amount of free pelvic fluid. US/US pelvis w/ transvaginal IMPRESSION: PRIOR HYSTERECTOMY. LARGE, MILDLY COMPLEX CYSTIC PELVIC MASS, DESCRIBED. THIS IS PROBABLY OVARIAN IN ORIGIN. BENIGN ETIOLOGIES SUCH CYSTADENOMA ARE FAVORED HOWEVER GYNECOLOGIC FOLLOW-UP WILL BE NEEDED TO EXCLUDE ANY POSSIBILITY OF MALIGNANCY. SMALL AMOUNT OF FREE PELVIC FLUID. Impression dictated by: Clarisa Neal M.D. 01/24/2025 11:36 AM Dictation Location: [place] [address] Electronically authenticated by: [id number] Y Date: 01/24/2025 11:36
== END 2025-01-24 09:33 | disposition home or self-care (01) ==
LOC: MRI 09:32
PROVIDERS: PCP Family Medicine; Visit Provider Internal Medicine Hematology & Oncology
DX: C20 Malignant neoplasm of rectum (principal); C67.0 Malignant neoplasm of trigone of bladder; K74.60 Unspecified cirrhosis of liver; R74.01 Elevation of levels of liver transaminase levels; K86.9 Disease of pancreas, unspecified; R19.09 Other intra-abdominal and pelvic swelling, mass and lump
CPT/HCPCS: 74183; 76830; 76856; A9575

== ENCOUNTER 2025-02-19 10:58 | Outpatient (RCR) | payer MEDICARE, OTHER, SELFPAY ==
[2025-02-08 10:32] VITALS: BP 119/72; PULSE 79; TEMP 36.3; O2SAT 95
[2025-02-08] MEDS: FERRIC CARBOXYMALTOSE 750 MG in 0.9 % SODIUM CHLORIDE 250 ML 795 MG IV (10:54)
== END 2025-03-08 23:59 | disposition home or self-care (01) ==
LOC: HEMC 10:58
PROVIDERS: PCP Family Medicine; Visit Provider Internal Medicine Hematology & Oncology
DX: C20 Malignant neoplasm of rectum (principal); C67.0 Malignant neoplasm of trigone of bladder; K74.60 Unspecified cirrhosis of liver; R74.01 Elevation of levels of liver transaminase levels; K86.9 Disease of pancreas, unspecified; D50.9 Iron deficiency anemia, unspecified; K90.9 Intestinal malabsorption, unspecified; Z90.49 Acquired absence of other specified parts of digestive tract; Z90.710 Acquired absence of both cervix and uterus; F17.210 Nicotine dependence, cigarettes, uncomplicated; Z90.722 Acquired absence of ovaries, bilateral
CPT/HCPCS: 96365; G0463; J1439

== ENCOUNTER 2025-03-12 13:25 | Outpatient (RCR) | payer MEDICARE, OTHER, SELFPAY ==
[2025-03-12 14:03] LABS: Hematocrit 38.0 % (36.0-48.0); Hemoglobin 12.0 g/dL (12.0-16.0); Immature Granulocytes Abs Auto 0.02 10^3/uL (0.00-0.03); Immature Granulocytes Pct Auto 0.3 % (0.0-0.5); Lymphocytes Absolute Auto 1.6 10^3/uL (1.2-3.8); Mean Corpuscular HGB Conc 31.6 g/dL (29.9-35.2); Mean Corpuscular Hemoglobin 26.1 pg (26.7-34.0); Mean Corpuscular Volume 82.6 fL (81.0-99.0); Platelet Count 246 10^3/uL (150-450); Red Blood Count 4.60 10^6/uL (4.20-5.40); White Blood Count 6.0 10^3/uL (4.0-11.0)
[2025-03-12 14:26] LABS: Alanine Aminotransferase 30 U/L (14-59); Anion Gap 8.1; Aspartate Amino Transferase 83 U/L (15-37); Blood Urea Nitrogen 12.0 mg/dL (7.0-18.0); Calcium 8.1 mg/dL (8.5-10.1); Carbon Dioxide 27.7 mmol/L (21.0-32.0); Chloride 98 mmol/L (98-107); Estimated GFR (African America 51 (>=60 mL/min/1.73m^2); Estimated GFR (Non-African Ame 42 (>=60 mL/min/1.73m^2); Glucose 133 mg/dL (74-106); Sodium 131 mmol/L (136-145)
[2025-03-12 14:27] LABS: Albumin Globulin Ratio 0.4; Albumin Level 2.7 g/dL (3.4-5.0); Alkaline Phosphatase 295 U/L (46-116); Globulin 6.8 g/dL; Potassium 2.8 mmol/L (3.5-5.1); Total Protein 9.5 g/dL (6.4-8.2)
[2025-03-12 15:10] LABS: Iron 46.0 ug/dL (50.0-170.0); Percent Iron Saturation 17.8 %; Total Iron Binding Capacity 258.0 ug/dL (250.0-450.0)
[2025-03-12 15:26] LABS: Ferritin 166.0 ng/mL (8.0-252.0)
[2025-03-19 04:07] LABS: CA 19-9 105 U/mL (0-35)
== END 2025-04-07 23:59 | disposition home or self-care (01) ==
LOC: HEMC 13:25
PROVIDERS: PCP Family Medicine; Visit Provider Internal Medicine Hematology & Oncology
DX: C20 Malignant neoplasm of rectum (principal); C67.0 Malignant neoplasm of trigone of bladder; K74.60 Unspecified cirrhosis of liver; R74.01 Elevation of levels of liver transaminase levels; K86.9 Disease of pancreas, unspecified; D50.9 Iron deficiency anemia, unspecified; K90.9 Intestinal malabsorption, unspecified; Z90.49 Acquired absence of other specified parts of digestive tract; Z90.710 Acquired absence of both cervix and uterus; Z87.891 Personal history of nicotine dependence; Z90.722 Acquired absence of ovaries, bilateral; R97.8 Other abnormal tumor markers
CPT/HCPCS: 36415; 80053; 82728; 83540; 83550; 85025; 86301; G0463

== ENCOUNTER 2025-03-25 07:25 | Outpatient (OUT) | payer MEDICARE, OTHER, SELFPAY ==
--- OUTSIDE RECORDS SUMMARY | 2025-01-01 03:45 | XMS_ITS ---
Author Organization The [facility] in [place] Address [address] [place] [address] Care Team Providers Care Outreach Specialist Name Role Phone Ranjana Bull MD Primary Care Provider Unavailab Emily Sanchez Unavailable [phone] REASON FOR VISIT MD New PT Onc Encounters Encounter Location Date Provider Diagnosis [facility] [address] [place] [id number] 01/01/2025 Emily Robles Plan Of Treatment No Information Progress Notes * Sally GARCIALisaB:1950 ([age] yo F)Acc No.[id number]:01/01/2025 UNLOCKED PROGRESS NOTE Progress Notes Patient: Yaa CASILLAS :?Emily Robles M.D.:1950???Age:74 Y ???Sex:FemaleDate:01/01/2025Phone:[phone]:[address], [place]Guf:Ranjana Bull MD Subjective: * Chief Complaints: * 1 . MD New PT Onc. * Medical History: Objective: * Vitals: Assessment: Plan: * Treatment: * * Electronic signature of Emily Robles MD, [id number] on 03/25/2025 at 07:33 AM ESTSign off status: PendingVisit Status:?CANC (Cancelled) * Provider: An Robles M.D. Date: 0 01/01/2025 Generated for Printing/Faxing/eTransmitting on:?03/25/2025 07:33 AM EST
--- OUTSIDE RECORDS SUMMARY | 2025-01-01 08:30 | XMS_ITS ---
Author Organization The [facility] in [place] Address [address] [place] [address] Care Team Providers Care Foreign Exchange Trader Name Role Phone Ranjana Bull MD Primary Care Provider Unavailab Emily Sanchez Unavailable [phone] REASON FOR VISIT MD New PT Onc Encounters Encounter Location Date Provider Diagnosis [facility] [address] [place] [phone] 01/01/2025 Emily Robles Plan Of Treatment No Information Progress Notes * Sally GARCIALisaB:1950 ([age] yo F)Acc No.[id number]:01/01/2025 UNLOCKED PROGRESS NOTE Progress Notes Patient: Yaa CASILLAS :?Emily Robles M.D.:1950???Age:74 Y ???Sex:FemaleDate:01/01/2025Phone:[phone]:[address], [place]Aio:Ranjana Bull MD Subjective: * Chief Complaints: * 1 . New PT Onc. * Medical History: Objective: * Vitals: Assessment: Plan: * Treatment: * * Electronic signature of Emily Robles MD, [id number] on 03/25/2025 at 07:32 AM ESTSign off status: PendingVisit Status:?CONFPHONE (Voice) * Provider: An Robles M.D. Date: 0 01/01/2025 Generated for Printing/Faxing/eTransmitting on:?03/25/2025 07:32 AM EST
--- OUTSIDE RECORDS SUMMARY | 2025-01-22 09:00 | XMS_ITS ---
Author Organization The [facility] in [place] Address [address] [place] [address] Care Team Providers Care Medical Apparatus Model Maker Name Role Phone Ranjana Bull MD Primary Care Provider Unavailab Emily Sanchez Unavailable [phone] REASON FOR VISIT MD Encounters Encounter Location Date Provider Diagnosis [facility] [address] 01/22/2025 Emily Robles Plan Of Treatment No Information Progress Notes * JOSESallyLisaB:1950 ([age] yo F)Acc No.[id number]:01/22/2025 UNLOCKED PROGRESS NOTE Progress Notes Patient: Yaa CASILLAS :?Emily Robles M.D.:1950???Age:74 Y ???Sex:FemaleDate:01/22/2025Phone:[phone]:[address] [place], [place]Vao:Ranjana Bull MD Subjective: * Chief Complaints: * 1 . MD. * Medical History: Objective: * Vitals: Assessment: Plan: * Treatment: * * Electronic signature of Emily Robles MD, [id number] on 03/25/2025 at 07:35 AM ESTSign off status: PendingVisit Status:?PEN (Pending) * Provider: An Robles M.D. Date: 0 01/22/2025 Generated for Printing/Faxing/eTransmitting on:?03/25/2025 07:35 AM EST
--- OUTSIDE RECORDS SUMMARY | 2025-01-22 09:30 | XMS_ITS ---
Author Organization The [facility] in [place] Address [address] [place] [address] Care Team Providers Care Fast Food Restaurant Manager Name Role Phone Ranjana Bull MD Primary Care Provider Unavailab Emily Sanchez Unavailable [phone] REASON FOR VISIT MD Encounters Encounter Location Date Provider Diagnosis [facility] [place] [address] 01/22/2025 Emily Robles Plan Of Treatment No Information Progress Notes * JOSESallyLisaB:1950 ([age] yo F)Acc No.[id number]:01/22/2025 UNLOCKED PROGRESS NOTE Progress Notes Patient: Yaa CASILLAS :?Emily Robles M.D.:1950???Age:74 Y ???Sex:FemaleDate:01/22/2025Phone:[phone]:[address] [place], [place]Rsx:Ranjana Bull MD Subjective: * Chief Complaints: * 1 . MD. * Medical History: Objective: * Vitals: Assessment: Plan: * Treatment: * * Electronic signature of Emily Robles MD, [id number] on 03/25/2025 at 07:33 AM ESTSign off status: PendingVisit Status:?CANC (Cancelled) * Provider: An Robles M.D. Date: 0 01/22/2025 Generated for Printing/Faxing/eTransmitting on:?03/25/2025 07:33 AM EST
--- OUTSIDE RECORDS SUMMARY | 2025-01-29 05:30 | XMS_ITS ---
Author Organization The [facility] in [place] Address [address] [place] [address] Care Team Providers Care Boss Miner Name Role Phone Ranjana Bull MD Primary Care Provider Unavailab Emily Sanchez Unavailable [phone] REASON FOR VISIT MD Encounters Encounter Location Date Provider Diagnosis [facility] Oncology [facility] [place] [address] 01/29/2025 Emily Robles Plan Of Treatment No Information Progress Notes * JOSE SallyLisaB:1950 ([age] yo F)Acc No.[id number]:01/29/2025 UNLOCKED PROGRESS NOTE Progress Notes Patient: Yaa CASILLAS :?Emily Robles M.D.:1950???Age:74 Y ???Sex:FemaleDate:01/29/2025Phone:[phone]:[address], [place]Vix:Ranjana Bull MD Subjective: * Chief Complaints: * 1 . MD. * Medical History: Objective: * Vitals: Assessment: Plan: * Treatment: * * Electronic signature of Emily Robles MD, [id number] on 03/25/2025 at 07:34 AM ESTSign off status: PendingVisit Status:?CANC (Cancelled) * Provider: An Robles M.D. Date: 0 01/29/2025 Generated for Printing/Faxing/eTransmitting on:?03/25/2025 07:34 AM EST
--- OUTSIDE RECORDS SUMMARY | 2025-02-19 06:00 | XMS_ITS ---
Author Organization The [facility] in [place] Address [address] [place] [address] Care Team Providers Care Hot Blast Worker Name Role Phone Ranjana Bull MD Primary Care Provider Unavailab Emily Sanchez Unavailable [phone] REASON FOR VISIT MD Encounters Encounter Location Date Provider Diagnosis [facility] Oncology [facility] [place] [address] 02/19/2025 Emily Robles Plan Of Treatment No Information Progress Notes * JOSESallyLisaB:1950 ([age] yo F)Acc No.[id number]:02/19/2025 UNLOCKED PROGRESS NOTE Progress Notes Patient: Yaa CASILLAS :?Emily Robles M.D.:1950???Age:74 Y ???Sex:FemaleDate:02/19/2025Phone:[phone]:[address] [place], [place]Hnh:Ranjana Bull MD Subjective: * Chief Complaints: * 1 . MD. * Medical History: Objective: * Vitals: Assessment: Plan: * Treatment: * * Electronic signature of Emily Robles MD, [id number] on 03/25/2025 at 07:35 AM ESTSign off status: PendingVisit Status:?CANC (Cancelled) * Provider: An Robles M.D. Date: Generated for Printing/Faxing/eTransmitting on:?03/25/2025 07:35 AM EST
--- OUTSIDE RECORDS SUMMARY | 2025-02-19 06:00 | XMS_ITS ---
Author Organization [facility] in [place] Address [address] [place] [address] Care Team Providers Care Skidder Driver Name Role Phone Ml GATES, Ranjana Primary Care Provider Unavailab ABISAI Dos Santos Unavailable [phone] REASON FOR VISIT MD Encounters Encounter Location Date Provider Diagnosis [facility] Oncology [facility] [place] [address] 02/19/2025 ABISAI SANTIAGO Plan Of Treatment No Information Progress Notes * JOSESallyLisaB:1950 ([age] yo F)Acc No.[id number]:02/19/2025 UNLOCKED PROGRESS NOTE Progress Notes Patient: Yaa CASILLAS :SEGUNDO SANTIAGO M.D.:1950???Age:74 Y ???Sex:FemaleDate:02/19/2025Phone:[phone]:[address], [place]Lqe:Ranjana Bull MD Subjective: * Chief Complaints: * 1 . MD. * Medical History: Objective: * Vitals: Assessment: Plan: * Treatment: * * Electronic signature of ABISAI SANTIAGO MD on 03/25/2025 at 07:34 AM ESTSign off status: PendingVisit Status:?PEN (Pending) * Provider: An SANTIAGO M.D. Date: Generated for Printing/Faxing/eTransmitting on:?03/25/2025 07:34 AM EST
--- OUTSIDE RECORDS SUMMARY | 2025-03-12 05:00 | XMS_ITS ---
Author Organization The [facility] in [place] Address [address] [place] [address] Care Team Providers Care Industrial Manufacturing Technician Name Role Phone Ml GATES, Ranjana Primary Care Provider Unavailab ABISAI Dos Santos Unavailable [phone] REASON FOR VISIT MD Encounters Encounter Location Date Provider Diagnosis The Oncology [address] [place] [address] 03/12/2025 ABISAI SANTIAGO Plan Of Treatment No Information Progress Notes * JOSE SallyLisaB:1950 ([age] yo F)Acc No.[id number]:03/12/2025 UNLOCKED PROGRESS NOTE Progress Notes Patient: Yaa CASILLAS :?ABISAI SANTIAGO M.D.:1950???Age:74 Y ???Sex:FemaleDate:03/12/2025Phone:[phone]:[address], [place]Aco:Ranjana Bull MD Subjective: * Chief Complaints: * 1 . MD. * Medical History: Objective: * Vitals: Assessment: Plan: * Treatment: * * Electronic signature of ABISAI SANTIAGO MD on 03/25/2025 at 07:33 AM ESTSign off status: PendingVisit Status:?CANC (Cancelled) * Provider: An SANTIAGO M.D. Date: 05/12/2024 Generated for Printing/Faxing/eTransmitting on:?03/25/2025 07:33 AM EST
--- OUTSIDE RECORDS SUMMARY | 2025-03-12 08:30 | XMS_ITS ---
Author Organization The [facility] in [place] Address [address] [place] [address] Care Team Providers Care Learning Disabilities Teacher Name Role Phone Ranjana Bull MD Primary Care Provider Unavailab Emily Sanchez Unavailable [phone] REASON FOR VISIT MD Encounters Encounter Location Date Provider Diagnosis [facility] Oncology [address] [place] [address] 03/12/2025 Emily Robles Plan Of Treatment No Information Progress Notes * JOSESallyLisaB:1950 ([age] yo F)Acc No.[id number]:03/12/2025 UNLOCKED PROGRESS NOTE Progress Notes Patient: Yaa CASILLAS :?Emily Robles M.D.:1950???Age:74 Y ???Sex:FemaleDate:03/12/2025Phone:[phone]:[address] [place], [place]Hri:Ranjana Bull MD Subjective: * Chief Complaints: * 1 . MD. * Medical History: Objective: * Vitals: Assessment: Plan: * Treatment: * * Electronic signature of Emily Robles MD, [id number] on 03/25/2025 at 07:34 AM ESTSign off status: PendingVisit Status:?PEN (Pending) * Provider: An Robles M.D. Date: 05/12/2024 Generated for Printing/Faxing/eTransmitting on:?03/25/2025 07:34 AM EST
--- OUTSIDE RECORDS SUMMARY | 2025-03-21 10:21 | XMS_ITS | Continuity of Care Document ---
Author Organization [facility] Address [address] [place] [address] Phone Care Team Providers Care Kettle Loader Name Role Phone Ranjana Bull MD Primary Care Provider Dimple Caraballo MD Attending Provider [phone] Emily Robles MD Attending Provider Dimple Caraballo MD Other Provider Gillian Cueva [facility] Attending Provider Guera Jones CMA Attending Provider Ranjana Khalil MD Attending Provider Care Teams Patient Care Team Team Status: Active Member Role/Relationship Status Dates Ranjana Bull MD Primary Care Provider Active Visit Care Team Team Status: Inactive Member Role/Relationship Status Dates Rnajana Bull MD Primary Care Provider Active Start: December 27, 2024 End: December 27, 2024ImaLatosha Joshi ProviderActiveStart: December 27, 2024 End: December 27, 2024 Visit Care Team Team Status: Inactive Member Role/Relationship Status Dates Ranjana Bull MD Primary Care Provider Active Start: December 28, 2024 End: December 28, 2024ImaLatosha Joshi ProviderActiveStart: December 28, 2024 End: December 28, 2024 Visit Care Team Team Status: Active Member Role/Relationship Status Dates Ranjana Bull MD Primary Care Provider Active Start: January 01, 2025 Latosha Lawson ProviderActiveStart: January 01, 2025 Visit Care Team Team Status: Active Member Role/Relationship Status Dates Ranjana Bull MD Primary Care Provider Active Start: January 22, 2025 Latosha Medeiros ProviderActiveStart: January 22, 2025 Marta Medeiros ProviderActiveStart: January 22, 2025 Visit Care Team Team Status: Active Member Role/Relationship Status Dates Ranjana Bull MD Primary Care Provider Active Start: January 23, 2025 Erum Estrada ProviderActiveStart: January 23, 2025 Visit Care Team Team Status: Active Member Role/Relationship Status Dates Ranjana Bull MD Primary Care Provider Active Start: February 19, 2025 Erum Shine ProviderActiveStart: February 19, 2025 Visit Care Team Team Status: Inactive Member Role/Relationship Status Dates Ranjana Bull MD Primary Care Provider Active Start: February 27, 2025 End: February 27, 2025ImaLatosha Joshi ProviderActiveStart: February 27, 2025 End: February 27, 2025 Visit Care Team Team Status: Inactive Member Role/Relationship Status Dates Ranjana Bull MD Primary Care Provider Active Start: March 01, 2025 End: March 01, 2025ImaLatosha Joshi ProviderActiveStart: March 01, 2025 End: March 01, 2025 Visit Care Team Team Status: Active Member Role/Relationship Status Dates Ranjana Bull MD Primary Care Provider Active Start: March 12, 2025 Latosha Lawson ProviderActiveStart: March 12, 2025 Patient Care Team Team Status: Inactive Member Role/Relationship Status Dates Ranjana Bull MD Primary Care Provider Active Start: March 21, 2025 End: March 21, 2025Latosha Ordonez ProviderActiveStart: March 21, 2025 End: March 21, 2025 Chief Complaint and Reason for Visit Chief Complaint Admit Date ELEVATED LFTS,CIRRHOTIC LIVER,DISEASE OF PANCREAS December 27, 2024 7:54am K74.60 December 28, 2024 9: 37am hx of rectal ca/dysphagia/cirrhosis Jan 10:35am Amb Documentation January 23, 2025 11:39am Amb Documentation February 19, 2025 9 :45am Discuss possible liver Bx February 27, 2025 1:02pm k74.60 March 01, 2025 8 :30am discuss meds March 21, 2025 2:26pm Reason for Visit Admit Date Cirrhosis December 27, 2024 7: 54am Dysphagia December 27, 2024 7: 54am Elevated LFTs December 27, 2024 7: 54am History of rectal cancer December 27 7:54am Pancreatic disease December 27, 2024 7: 54am Ascites February 27, 2025 1 :02pm Cirrhosis February 27, 2025 1 :02pm Decompensated cirrhosis February 27 1:02pm Elevated LFTs February 27, 2025 1 :02pm Primary biliary cholangitis February 1:02pm Hypokalemia March 21, 2025 2:26pm Allergies, Adverse Reactions, Alerts Allergen Type Severity Reaction Last Updated Verified Status codeine Allergy Unknown Rash March 21, 2025 2:30pm Yes Active phenazopyridine Allergy Unknown Agitated, vomiting N ovember 2024 2:30pm Yes Active Social History Smoking Status Status Start Date End Date Date of Observa tion Ex-smoker (finding) February 27, 2025 1:40pm Observation Status Observation Response Date of Response Legal Sex [facility] (finding) [facility] 1950 Family History Relationship Condition Age at Onset Recorded Date/T rohith brother History of heart surgery Unknown fatherDeceasedUnknownmotherDeceasedUnknownLupusUnknown Problems Active Problems Problem Diagnosis/Recorded Date Onset Date Stat us Ascites February 27, 2025 12:25pm Unknown A ctive CKD stage 3b, GFR 30-44 ml/min November 23, 2024 11:54am Unknown Active Bilateral lower extremity edema July 28, 2023 12:15 pm Unknown Active Medicare annual wellness vis it, subsequent July 11, 2023 11:28am Unknown Active Mass of head of pancreas November 29, 2024 8:49am Unknow n Active Screening mammogram for breast cancer July 11, 2023 11:29am Unknown Active History of rectal cancer November 19, 2024 11:10am Unkno wn Active BPV (benign positional vertigo) April 18, 2024 9: 51am Unknown Active Other specified hypothyroidism July 08, 2023 11:31am Unknown Active Thyroid nodule November 19, 2024 10:37am Unknown Ac tive Abnormal LFTs November 23, 2024 11:54am Unknown Act luis Pancreatic disease December 27, 2024 7:05am Unknown Active Elevated LFTs December 27, 2024 7:04am Unknown Ac tive Dysphagia December 27, 2024 7:39am Unknown Act luis Pure hypercholesterolemia July 08, 2023 11:31am Unkn own Active Hypothyroidism July 08, 2023 11:31am Unknown Ac tive Cirrhosis December 27, 2024 7:05am Unknown Act luis Right-sided chest pain November 19, 2024 10:42am Unknown Active Localized swelling of both lower legs July 11, 2023 11:29am Unknown Active Venous insufficiency February 23, 2024 1:32pm Unknown Active Essential (primary) hypertension July 08, 2023 11:31 am Unknown Active Decompensated cirrhosis February 27, 2025 12:51pm Unk nown Active Bladder wall thickening December 11, 2024 2:29pm Unknow n Active Primary biliary cholangitis February 27, 2025 12:51pm Unknown Active BMI 34.0-34.9,adult November 19, 2024 11:18am Unknown Active History of bladder cancer November 19, 2024 11:09am Unkn own Active Cervical pain (neck) July 11, 2023 11:28am Unknown Active Balance disorder July 08, 2023 11:31am Unknown Active Constipation December 27, 2024 7:29am Unknown Act luis Hypokalemia March 21, 2025 3:05pm Unknown A ctive Medications Medication Status Dose Units Route Directions Qty Days Refills S tart Date Stop Date End Date Reason(s) Instructions Adherence Amlodipine 10 mg tablet Discontinued 0 .ROUTE.WMVLYGB714Ptlwqinc 2023 3:14pmSeptember 2023 12:16pmTAKE 1 TABLET BY MOUTH EVERY DAY FOR 30 DAYSLevothyroxine 150 mcg tabletDiscontinued0 .ROUTE.VZCRMLG741Rxqtv 2023 10:52amJuly 2023 2:55pmTAKE 1 TABLET BY MOUTH EVERY DAYLosartan 50 mg tabletDiscontinued0.ROUTE.LXMRBDQ8534Spsn 2023 7:43amSeptember 2023 12:32pmTAKE 1 TABLET BY MOUTH TWICE A DAY FOR 90 DAYSLevothyroxine 150 mcg tabletDiscontinued0.ROUTE.WXZHCAU009Pqcx 2023 2:55pmOctober 2023 8:06amTAKE 1 TABLET BY MOUTH EVERY DAYAmlodipine 10 mg tabletDiscontinued0.ROUTE.KARMULH076Ayzosbidw 2023 12:16pmFebruary 2024 10:15amTAKE 1 TABLET BY MOUTH EVERY DAY FOR 30 DAYSLevothyroxine 150 mcg tabletDiscontinued0.ROUTE.YAZSQBZ428Mghfigm 2023 8:06amJanuary 2024 2:40pmTAKE 1 TABLET BY MOUTH EVERY DAYLosartan 100 mg tabletDiscontinued0.ROUTE .QJLHQDJ167Sfdnercf 2023 8:06amDecember 2023 9:05amTAKE 1 TABLET BY MOUTH DAILYLosartan 100 mg tabletDiscontinued0.ROUTE.XAWQPNX680Vgkniddt 2023 9:05amJune 2024 3:40pmTAKE 1 TABLET BY MOUTH DAILYLevothyroxine 150 mcg tabletDiscontinued0.ROUTE.QIRZCAD340Cmfjeon 2024 2:40pmMay 2024 7:35amTAKE 1 TABLET BY MOUTH EVERY DAYAmlodipine 10 mg tabletDiscontinued0.ROUTE .CIRUVLD025Kuqyjawi 2024 10:15amAugust 2024 11:25amTAKE 1 TABLET BY MOUTH EVERY DAY FOR 30 DAYSLevothyroxine 150 mcg tabletDiscontinued0.ROUTE .BLAUZVJ996Ime 2024 7:35amJuly 2024 2:25pmTAKE 1 TABLET BY MOUTH EVERY DAYLosartan 100 mg tabletDiscontinued0.ROUTE.GQOIEOE680Atui 2024 3:40pmSeptember 2024 7:26amTAKE 1 TABLET BY MOUTH DAILYFolic Acid 1 mg hxkhpdZtvnccxmyygn8EAARIrihw660Zzsd 2024 11:00pmOctober 2024 1:23pm Levothyroxine 150 mcg tabletDiscontinued0.ROUTE.OXPXNXS800Gbtq 2024 2:25pm February 26, 2025 3:22pmTAKE 1 TABLET BY MOUTH EVERY DAYAmlodipine 10 mg tablet Discontinued0.ROUTE.LZHJYTI873Ixgzzu 2024 11:25amNovember 2024 8:24amTAKE 1 TABLET BY MOUTH EVERY DAY FOR 30 DAYSLosartan 100 mg tablet Discontinued0.ROUTE.KPIEILR217Gvvholvnb 15th, 2025 7:25amNovember 2024 2:31pmTAKE 1 TABLET BY MOUTH DAILYAtorvastatin 40 mg kchmftBtvfzd01BYMNLbjxb at yqiagim813Ewnjvbfgk 22nd, 2025 12:12pmComplies with drug therapyFolic Acid 1 mg rvmiwvRjynxk5HYZYIhfvo126Civsfjd 2024 1:23pmComplies with drug therapy Levothyroxine 150 mcg tabletActive0.ROUTE.ETUUIGA673Pqmmrlm 2024 3:22pm TAKE 1 TABLET BY MOUTH EVERY DAYComplies with drug therapyAmlodipine 10 mg tabletDiscontinued0.ROUTE.YRJLYOT474Jcsrhdvx 10th, 2025 8:amNovember 2024 3:06pmTAKE 1 TABLET BY MOUTH EVERY DAY FOR 30 DAYSPolyethylene Glycol 3350 (Miralax) 17 gram/dose aypavsVadmoz3TWQMIu DirectedSeptember 2024 11:00pm Complies with drug therapyPantoprazole 40 mg tablet,delayed release (DR/EC) Zqiptk13CRCVIaiqr07392Mqlvkezeg 2024 11:00pmComplies with drug therapy Aspirin 325 mg XdzdsyTypneujsljac861YWWPPsjzgFcvcjhrog 2022 11:00pm January 21, 2023 3:16pmAmlodipine 5 mg UuisdyXmfywptowjtp5ZWNVSwypcFcdrgkwty 2022 11:00pmSeptember 2022 3:16pmLosartan 50 mg TbicwpJzxrdbjlehwq97 MGPOTwice dailySeptember 2022 11:00pmJune 2023 7:43amAtorvastatin 40 mg OaxlamXthowyclnjuu29ZEIHRpejf at bedtimeSeptember 2022 11:00pmSeptember 2023 12:20pmLevothyroxine 150 mcg LtfcosQkacemamiqba211RULOOVvodxWdtsnsawc 2022 11:00pmApril 2023 10:52amNitroglycerin 0.4 mg Tablet, Sublingual Discontinued0.8XWKGEQFQIVSTT7D as needed for AnginaSeptember 2022 11:00pm July 08, 2023 11:33amdo not exceed 3 doses per episodeCholestyramine (With Sugar) UzqnrcLjukwegkepux1RVYTONUu DirectedSeptember 2022 11:00pmMarch 2023 11:04amAmlodipine 10 mg jtsvutQegwcudityld68IATKRqipt517996Kbbtrojtk 2022 11:00pmFebruary 2023 3:14pmAtorvastatin 40 mg tablet Cowesimbxzqt04JAGTAnzzk at qyoytwo017Rxqcsxxdl 2023 12:19pmSeptember 2024 12:12pmLosartan 100 mg yjtemwLghdenrhhwpw1UNFzjsg479Azlehatur 2023 12:31pmSeptember 2023 12:34pmTAKE 1 TABLET BY MOUTH TWICE A DAY FOR 90 DAYS orally daily;Losartan 100 mg whswxaRhusrmjjcvtp293CBVJZwfwa569Yojtbleeg 2023 12:33pmDecember 2023 8:06amMetoclopramide Hcl 5 mg tabletActive 6IVLI9x/Day before meals as neededNovember 2024 12:00amadminister 30 minutes before mealsComplies with drug therapyAmlodipine 2.5 mg tabletActive2.5 QSTBNcgji189Klbazujs 2024 3:05pmComplies with drug therapyAlbuterol Sulfate 90 mcg/actuation HFA aerosol fzldbvzEfmiyxsquryl4QQZWYCKKSMWEEDKpxiv 4 hoursMarch 2023 12:00amOctober 2023 8:27amMeclizine 25 mg tablet Gvbcwobshubi27WJCFZdzsx daily as needed for gqegglyaw315Lmccrgpa 2023 12:00amJuly 2024 10:20geUjz9120-Rbm Sbw-Fhxe-Mpv-Asb-C (Plenvu) 140-9-5.2 gram powder in packet, gsvyujzucjXgwfxvtgagsk077RTHR.OPWDVQN763Gklmtn 2024 11:00pmSeptember 2024 9:45amBowel PrepFirst dose at 4pm the day before colonoscopy, Second dose at 11pm the night before the colonoscopyFurosemide (Lasix) 40 mg uzhlvpVccfje20DFRREuvfo81120Fjikaco 21st, 2025 11:00pmComplies with drug therapySpironolactone 100 mg gekmieWerlum936OKIOEwube48945Ngnobbs 21st, 2025 11:00pmComplies with drug therapyUrsodiol 300 mg capsuleDiscontinued 600MGPOTwice wawqt678280Ihwrgvs 21st, 2025 11:00pmNovember 2024 2:33pm Immunizations Immunization Event Date Not Given Reason Dose Number [employer] Lot Number Reason(s) Given Vaccine Information Statement (VIS) Detail Administration Location COVID-19 mRNA, Comirnaty (Aircom) August 13 COVID-19 mRNA, Comirnaty (Aircom)September 03OVID-19 mRNA, Comirnaty (Aircom)April 17OVID-19 mRNA Bivalent Booster (Aircom)July 15neumococcal Conjugate Vaccine, 13 valentSeptember 2018Pneumococcal Conjugate Vaccine, 13 valentJune 2019 Relevant Diagnostic Tests and/or Laboratory Data Laboratory Results Test Collection Date/Time Result Date/Time Result Interpretation Reference Range Result Comment Performing Site CA 19-9 Antigen January 01, 2025 2:08pm January 01, 2025 2:08pm 96 U/mL Abnormal (applies to non-numeric results) 0-35 [facility] Electrochemil uminescence Immunoassay(E CLIA)Values obtained with different assay methods or kits cannotbe used interchangeab ly. Results cannot be interpreted asabsolute evidence of the presence or absence of malignantdise ase.Performed at: [address] [id number] Director: Cm Purcell PhD, Phone: [phone] Carcinoembryonic AntigenAugust 26th, 2025 2:08pmAugust 2024 2:08pm1.5 ng/mL0.0-4.7Nonsmokers <3.9 Smokers <5.6[facility] Electrochemiluminescence Immunoassay(ECLIA)Values obtained with different assay methods or kitscannot be used interchangeably. Results cannot beinterpreted as absolute evidence of the presence orabsence of malignant disease.Anion GapAugust 2024 2:08pmAugust 2024 2:08pm9.9Tumor Marker Alpha FetoproteinAugust 2024 2:08pmAugust 2024 2:08pm3.3 ng/mL0.0-9.2[facility] Electrochemiluminescence Immunoassay(ECLIA)Values obtained with different assay methods or kits cannotbe used interchangeably. Results cannot be interpreted asabsolute evidence of the presence or absence of malignantdisease.This test is not interpretable in females.Performed at: [facility] [place], [place] [id number] Director: Cm Purcell PhD, Phone: [phone] # (Auto)January 01, 2025 2:08pmAugust 2024 2:08pm0.0 10 3/uL0.0-0.1Immunoglobulin GSept2024 1:58pmSeptember 2024 1:45dh4921 mg/dLAbnormal (applies to non-numeric results)586-1602Results confirmed ondilution.Vitamin B12 LevelSept2024 1:58pmSeptember 2024 1:82ql778 pg/tQ364-3516Hotlecfhs at: [facility] [employer] [place], [place] [id number] Director: Cm Purcell PhD, Phone: [phone] FerritinSept2024 1:58pmSeptember 2024 1:58pm28.0 ng/mL 8.0-252.0Iron SaturationSept2024 1:58pmSept2024 1:58pm 9.7 %C-Reactive Protein, QuantitativeSept2024 1:58pmSept2024 1:58pm3.40 mg/dLAbove high normal<=0.50Anion GapSept2024 1:58pm January 22, 2025 1:58pm11.6Erythrocyte Sedimentation RateSept2024 1:58pmSept2024 1:46uy344 mm/hrAbove high normal<=30Basophils # (Auto)January 22, 2025 1:58pmSept2024 1:58pm0.0 10 3/uL0.0-0.1CA 19-9 AntigenNov2024 1:58pmNov2024 1:53ze969 U/mLAbnormal (applies to non-numeric results)0-35[facility] Electrochemiluminescence Immunoassay(ECLIA)Values obtained with different assay methods or kits cannotbe used interchangeably. Results cannot be interpreted asabsolute evidence of the presence or absence of malignantdisease.Performed at: [address] [id number] Director: Cm Purcell PhD, Phone: [phone] GapMarch 12, 2025 1:58pmNov2024 1:58pm8.1Ferritin March 12, 2025 1:58pmNov2024 1:89ys506.0 ng/mL8.0-252.0Iron 2024 1:58pmNov2024 1:58pm17.8 %Basophils # (Auto)March 12, 2025 1:58pmNov2024 1:58pm0.0 10 3/uL0.0-0.1 Albumin/Globulin RatioAugust 2024 2:08pmAugust 2024 2:08pm0.4 Basophils (%) (Auto)January 01, 2025 2:08pmAugust 2024 2:08pm0.2 %0.2-2.0 Protein Electrophoresis M-SpikeSept2024 1:58pmSept2024 1:58pmNot Observed g/dLNot ObservedIron LevelSept2024 1:58pm January 22, 2025 1:58pm35.0 ug/dLBelow low wixfiu67.0-170.0Albumin/Globulin RatioSept2024 1:58pmSeptember 2024 1:58pm0.3Basophils (%) (Auto)January 22, 2025 1:58pmSept2024 1:58pm0.4 %0.2-2.0 Albumin/Globulin RatioNoveer 2024 1:58pmNovember 2024 1:58pm0.4Iron LevelNov2024 1:58pmNov2024 1:58pm46.0 ug/dLBelow low snyssf93.0-170.0Basophils (%) (Auto)March 12, 2025 1:58pmNov2024 1:58pm0.3 %0.2-2.0AlbuminAugust 2024 2:08pmAugust 2024 2:08pm3.1 g/dLBelow low normal3.4-5.0Eosinophils # (Auto)January 01, 2025 2:08pmAugust 2024 2:08pm0.0 10 3/uL0.0-0.7Globulin (PEP)January 22, 2025 1:58pm January 22, 2025 1:58pm7.8 g/dLAbnormal (applies to non-numeric results) 2.2-3.9Total Iron Binding CapacitySept2024 1:58pmSept2024 1:75oh896.0 ug/dL250.0-450.0AlbuminSept2024 1:58pmSept2024 1:58pm2.9 g/dLBelow low normal3.4-5.0Eosinophils # (Auto)January 22, 2025 1:58pmSept2024 1:58pm0.0 10 3/uL0.0-0.7AlbuminNovember 2024 1:58pmNov2024 1:58pm2.7 g/dLBelow low normal3.4-5.0Total Iron Binding CapacityNov2024 1:58pmNov2024 1:43cm712.0 ug/dL250.0-450.0Eosinophils # (Auto)March 12, 2025 1:58pmNov2024 1:58pm0.1 10 3/uL0.0-0.7Alkaline PhosphataseAugust 2024 2:08pmAugust 2024 2:62ph224 U/LAbove high wjypwl32-379Kwhykhbxngf (%) (Auto)January 01, 2025 2:08pmAugust 2024 2:08pm0.6 %Below low normal0.9-7.0Albumin/Globulin (PEP) January 22, 2025 1:58pmSeptember 2024 1:58pm0.4Abnormal (applies to non-numeric results)0.7-1.7Alkaline PhosphataseSeptember 2024 1:58pm January 22, 2025 1:96hp074 U/LAbove high bqpwju81-560Qmmuisxbbmn (%) (Auto) January 22, 2025 1:58pmSeptember 2024 1:58pm0.5 %Below low normal 0.9-7.0Alkaline PhosphataseNov2024 1:58pmNov2024 1:44ej321 U/LAbove high -458Jsodesmvgke (%) (Auto)March 12, 2025 1:58pm March 12, 2025 1:58pm1.2 %0.9-7.0Alanine Aminotransferase (ALT/SGPT)January 01, 2025 2:08pmAugust 2024 2:08pm52 U/Q75-16QxvhibkuzbIcyqkp 2024 2:08pmAugust 2024 2:08pm32.2 %Below low .0-48.0Serum Immunofixation InterpretationSeptember 2024 1:58pmSeptember 2024 1:58pmComment.No monoclonality detected.Alanine Aminotransferase (ALT/SGPT) January 22, 2025 1:58pmSept2024 1:58pm57 U/Q03-53Omxazyldzg January 22, 2025 1:58pmSeptember 2024 1:58pm30.1 %Below low normal 36.0-48.0Alanine Aminotransferase (ALT/SGPT)March 12, 2025 1:58pmNov2024 1:58pm30 U/F58-84ZvjcokfpyrGbuuyjdb 4th, 2025 1:58pmNov2024 1:58pm38.0 %36.0-48.0Aspartate Amino Transf (AST/SGOT)January 01, 2025 2:08pm January 01, 2025 2:96qu253 U/LAbove high mavuzs47-25YgdbnsnaikTlymoz 2024 2:08pmAugust 2024 2:08pm10.1 g/dLBelow low suubey09.0-16.0Protein Electrophoresis NoteSept2024 1:58pmSept2024 1:58pm Comment.Protein electrophoresis scan will follow via computer,mail, or matcher offbearer delivery.Aspartate Amino Transf (AST/SGOT)January 22, 2025 1:58pmSept2024 1:83kt544 U/LAbove high kuzucp08-67ShwmachgsePvdlfamzr 16th, 2025 1:58pmSept2024 1:58pm9.4 g/dLBelow low .0-16.0Aspartate Amino Transf (AST/SGOT)March 12, 2025 1:58pmNov2024 1:58pm83 U/L Above high mtjamr62-49IvvrlfzbozGimltzle 4th, 2025 1:58pmNov2024 1:58pm12.0 g/dL12.0-16.0BUN/Creatinine RatioAugust 2024 2:08pmAugust 2024 2:08pm12.8Immature Granulocyte # (Auto)January 01, 2025 2:08pmAugust 2024 2:08pm0.01 10 3/uL0.00-0.03Free [place] Light Chains, QuantSeptember 2024 1:58pmSeptember 2024 1:84to847.4 mg/LAbnormal (applies to non-numeric results)3.3-19.4BUN/Creatinine RatioSeptember 2024 1:58pmSeptember 2024 1:58pm14.7Immature Granulocyte # (Auto)January 22, 2025 1:58pmSeptember 2024 1:58pm0.01 10 3/uL0.00-0.03BUN/Creatinine RatioNovember 2024 1:58pmNov2024 1:58pm9.5Immature Granulocyte # (Auto)March 12, 2025 1:58pmNov2024 1:58pm0.02 10 3/uL0.00-0.03Blood Urea Nitrogen January 01, 2025 2:08pmAugust 2024 2:08pm14.0 mg/dL7.0-18.0Immature Granulocyte % (Auto)January 01, 2025 2:08pmAugust 2024 2:08pm0.2 %0.0-0.5 Free Lambda Light Chains, QuantSept2024 1:58pmSeptember 2024 1:00dd959.8 mg/LAbnormal (applies to non-numeric results)5.7-26.3Blood Urea NitrogenSept2024 1:58pmSeptember 2024 1:58pm16.0 mg/dL7.0-18.0 Immature Granulocyte % (Auto)January 22, 2025 1:58pmSeptember 2024 1:58pm0.2 %0.0-0.5Blood Urea NitrogenNov2024 1:58pmNov2024 1:58pm12.0 mg/dL7.0-18.0Immature Granulocyte % (Auto)March 12, 2025 1:58pm March 12, 2025 1:58pm0.3 %0.0-0.5Calcium LevelAugust 2024 2:08pmAugust 2024 2:08pm8.4 mg/dLBelow low normal8.5-10.1Lymphocytes # (Auto)January 01, 2025 2:08pmAugust 2024 2:08pm1.8 10 3/uL1.2-3.8Free [place]/Lambda Light Chain RatioSept2024 1:58pmSeptember 2024 1:58pm0.73 0.26-1.65Performed at: [facility] [id number] Director: Cm Purcell PhD, Phone: [phone] Level January 22, 2025 1:58pmSeptember 2024 1:58pm8.0 mg/dLBelow low normal 8.5-10.1Lymphocytes # (Auto)January 22, 2025 1:58pmSeptember 2024 1:58pm1.5 10 3/uL1.2-3.8Calcium LevelNov2024 1:58pmNovember 2024 1:58pm8.1 mg/dLBelow low normal8.5-10.1Lymphocytes # (Auto)March 12, 2025 1:58pmNovember 2024 1:58pm1.6 10 3/uL1.2-3.8Chloride LevelAugust 2024 2:08pmAugust 2024 2:46wb509 mmol/D79-209Zducewdoboh (%) (Auto)January 01, 2025 2:08pmAugust 2024 2:08pm27.1 %20.5-60.0Immunoglobulin ASept2024 1:58pmSeptember 2024 1:67cm804 mg/kE73-360Icxdgcpw Level January 22, 2025 1:58pmSeptember 2024 1:73qk876 mmol/LAbove high -603Ziyansultcr (%) (Auto)January 22, 2025 1:58pmSeptember 2024 1:58pm27.0 %20.5-60.0Chloride LevelNov2024 1:58pmNov2024 1:58pm98 mmol/L40-580Rfoznazacvm (%) (Auto)March 12, 2025 1:58pm March 12, 2025 1:58pm26.3 %20.5-60.0Carbon Dioxide LevelAugust 2024 2:08pmAugust 2024 2:08pm26.0 mmol/L21.0-32.0Mean Corpuscular Hemoglobin January 01, 2025 2:08pmAugust 2024 2:08pm24.9 pgBelow low okehcj99.7-34.0 Immunoglobulin MSeptember 2024 1:58pmSeptember 2024 1:63yn279 mg/dL 26-217Carbon Dioxide LevelSeptember 2024 1:58pmSeptember 2024 1:58pm 20.9 mmol/LBelow low .0-32.0Mean Corpuscular HemoglobinSeptember 2024 1:58pmSeptember 2024 1:58pm24.5 pgBelow low klojtb71.7-34.0Carbon Dioxide LevelNov2024 1:58pmNovember 2024 1:58pm27.7 mmol/L 21.0-32.0Mean Corpuscular HemoglobinNovember 2024 1:58pmNovember 2024 1:58pm26.1 pgBelow low sutvcw72.7-34.0CreatinineAugust 2024 2:08pmAugust 2024 2:08pm1.09 mg/dLAbove high normal0.55-1.02Mean Corpuscular Hemoglobin ConcentAugust 2024 2:08pmAugust 2024 2:08pm31.4 g/dL29.9-35.2Serum Total ProteinSeptember 2024 1:58pmSeptember 2024 1:58pm10.5 g/dL Abnormal (applies to non-numeric results)6.0-8.5CreatinineSeptember 2024 1:58pmSeptember 2024 1:58pm1.09 mg/dLAbove high normal0.55-1.02Mean Corpuscular Hemoglobin ConcentSeptember 2024 1:58pmSeptember 2024 1:58pm31.2 g/dL29.9-35.2CreatinineNovember 2024 1:58pmNovember 2024 1:58pm1.26 mg/dLAbove high normal0.55-1.02Mean Corpuscular Hemoglobin Concent March 12, 2025 1:58pmNovember 2024 1:58pm31.6 g/dL29.9-35.2Estimated GFR ()January 01, 2025 2:08pmAugust 2024 2:08pm60>=60 mL/min/1.73m 2Mean Corpuscular VolumeAugust 2024 2:08pmAugust 2024 2:08pm79.5 fLBelow low sbxsam09.0-99.0Albumin (Send Out)January 22, 2025 1:58pmSeptember 2024 1:58pm2.7 g/dLAbnormal (applies to non-numeric results)2.9-4.4Estimated GFR ()January 22, 2025 1:58pm January 22, 2025 1:58pm60>=60 mL/min/1.73m 2Mean Corpuscular VolumeSept2024 1:58pmSeptember 2024 1:58pm78.4 fLBelow low zioroz68.0-99.0 Estimated GFR ()March 12, 2025 1:58pmNov2024 1:97mt24Rmqih low normal>=60 mL/min/1.73m 2Mean Corpuscular VolumeNov2024 1:58pmNov2024 1:58pm82.6 fL81.0-99.0Estimated GFR (Non- AmericanAugust 2024 2:08pmAugust 2024 2:96cu39Lmmab low normal>=60 mL/min/1.73m 2Monocytes # (Auto)January 01, 2025 2:08pmAugust 2024 2:08pm 0.5 10 3/uL0.3-0.5Nocfc-5-UoutygkbuAkjpmyaxn 2024 1:58pmSeptember 2024 1:58pm0.6 g/dLAbnormal (applies to non-numeric results)0.0-0.4Estimated GFR (Non- AmericanSept2024 1:58pmSeptember 2024 1:58pm49 Below low normal>=60 mL/min/1.73m 2Monocytes # (Auto)January 22, 2025 1:58pm January 22, 2025 1:58pm0.4 10 3/uL0.3-0.8Estimated GFR (Non- March 12, 2025 1:58pmNovember 2024 1:90zp49Ljbjh low normal>=60 mL/min/1.73m 2Monocytes # (Auto)March 12, 2025 1:58pmNovember 2024 1:58pm0.7 10 3/uL0.3-0.8GlobulinAugust 2024 2:08pmAugust 2024 2:08pm 8.8 g/dLMonocytes (%) (Auto)January 01, 2025 2:08pmAugust 2024 2:08pm6.8 %1.7-12.7Vkbuf-7-AlkhtddzxCwzdbsaal 2024 1:58pmSeptember 2024 1:58pm 0.8 g/dL0.4-1.0GlobulinSeptember 2024 1:58pmSeptember 2024 1:58pm8.8 g/dLMonocytes (%) (Auto)January 22, 2025 1:58pmSeptember 2024 1:58pm 6.7 %1.7-12.0GlobulinNov2024 1:58pmNov2024 1:58pm6.8 g/dL Monocytes (%) (Auto)March 12, 2025 1:58pmNovember 2024 1:58pm11.7 % 1.7-12.0Glucose LevelAugust 2024 2:08pmAugust 2024 2:82px041 mg/dL 74-106Mean Platelet VolumeAugust 2024 2:08pmAugust 2024 2:08pm10.0 fL9.5-13.5Beta GlobulinsSeptember 2024 1:58pmSept2024 1:58pm 1.7 g/dLAbnormal (applies to non-numeric results)0.7-1.3Gl[facility] LevelSeptab[facility] 2024 1:58pmSeptember 2024 1:54sc582 mg/dLAbove high saeroo31-456Fhqb Platelet VolumeSeptember 2024 1:58pmSeptember 2024 1:58pm10.2 fL 9.5-13.5Glucose LevelNovabrazo west campus 2024 1:58pmNov2024 1:77qd681 mg/dL Above high ljwaju68-526Vqqq Platelet VolumeNovabrazo west campus 2024 1:58pmNov2024 1:58pm9.9 fL9.5-13.5Potassium LevelAuunion county [facility] hospitalt 2024 2:08pmAugust 2024 2:08pm3.9 mmol/L3.5-5.1Neutrophils # (Auto)January 01, 2025 2:08pm January 01, 2025 2:08pm4.3 10 3/uL1.4-6.5Gamma GlobulinsSeptember 2024 1:58pmSeptabrazo west campus 2024 1:58pm4.7 g/dLAbnormal (applies to non-numeric results)0.4-1.8Potassium LevelSeptabrazo west campus 2024 1:58pmSeptabrazo west campus 2024 1:58pm3.5 mmol/L3.5-5.1Neutrophils # (Auto)January 22, 2025 1:58pmSeptember 2024 1:58pm3.6 10 3/uL1.4-6.5Potassium LevelNov2024 1:58pm March 12, 2025 1:58pm2.8 mmol/LBelow lower panic limits3.5-5.1RESULTS CALLED TO JEANINE HARDWICK RNNeutrophils # (Auto)March 12, 2025 1:58pmNovember 2024 1:58pm3.6 10 3/uL1.4-6.5Sodium LevelAugust 2024 2:08pmAugust 2024 2:84fu745 mmol/LBelow low eotwvt675-120Dhxculfptft (%) (Auto)January 01, 2025 2:08pmAugust 2024 2:08pm65.1 %43.0-75.0Sodium LevelSeptember 2024 1:58pmSeptember 2024 1:86lx628 mmol/Q677-143Lfntzrhcwnw (%) (Auto) January 22, 2025 1:58pmSeptember 2024 1:58pm65.2 %43.0-75.0Sodium LevelNov2024 1:58pmNovember 2024 1:98ph496 mmol/LBelow low xahdga251-190Lragpwwxngv (%) (Auto)March 12, 2025 1:58pmNovember 2024 1:58pm60.2 %43.0-75.0Total BilirubinAugust 2024 2:08pmAugust 2024 2:08pm1.0 mg/dL0.2-1.0Platelet CountAugust 2024 2:08pmAugust 2024 2:43cy614 10 3/fC081-221Rhucf BilirubinSeptember 2024 1:58pmSeptember 2024 1:58pm1.1 mg/dLAbove high normal0.2-1.0Platelet CountSeptember 2024 1:58pmSeptember 2024 1:25fx265 10 3/oK487-774Ayrdh BilirubinNovember 2024 1:58pmNovember 2024 1:58pm1.0 mg/dL0.2-1.0Platelet CountNovember 2024 1:58pmNovember 2024 1:80ni869 10 3/uT083-950Cjsbm ProteinAugust 2024 2:08pmAugust 2024 2:08pm11.9 g/dLAbove high normal6.4-8.2Red Blood CountAugust 2024 2:08pmAugust 2024 2:08pm4.05 10 6/uLBelow low normal4.20-5.40Total ProteinSeptember 2024 1:58pmSeptember 2024 1:58pm11.7 g/dLAbove high normal6.4-8.2Red Blood CountSeptember 2024 1:58pmSeptember 2024 1:58pm3.84 10 6/uLBelow low normal4.20-5.40Total ProteinNovember 2024 1:58pmNovember 2024 1:58pm9.5 g/dLAbove high normal6.4-8.2Red Blood CountNovember 2024 1:58pmNovember 2024 1:58pm 4.60 10 6/uL4.20-5.40Red Cell Distribution WidthAugust 2024 2:08pmAugust 2024 2:08pm16.6 %Above high luhsul38.0-15.0Red Cell Distribution Width January 22, 2025 1:58pmSeptember 2024 1:58pm17.6 %Above high normal 11.0-15.0Red Cell Distribution WidthNov2024 1:58pmNovember 2024 1:58pm23.1 %Above high vukhvo72.0-15.0ANISOCYTOSIS 1+Corrected White Blood Count January 01, 2025 2:08pmAugust 2024 2:08pm6.6 10 3/uL4.0-11.0Corrected White Blood CountSeptember 2024 1:58pmSeptember 2024 1:58pm5.5 10 3/uL4.0-11.0Corrected White Blood CountNovember 2024 1:58pmNovember 2024 1:58pm6.0 10 3/uL4.0-11.0Corrected White Blood CountOctober 2024 7:35amOctober 2024 8:04am6.1 10*3/uL3.8-11.6[facility] [id number] [address] [facility] 39337Atwctvxugky WBC CountOctober 2024 7:35amOctober 2024 8:04am6.1 10*3/uL3.8-11.6[facility] [id number] [address] [facility] 48381Mad Blood CountOctober 2024 7:35amOctober 2024 8:04am4.26 10*6/uL3.60-5.00[facility] [id number] [address] [facility] 60126QnunnplgvuOyhsjku 2024 7:35amOctober 2024 8:04am 11.1 g/dLBelow low teulyt02.8-15.4[facility] [id number] [address] [facility] 97309CmpqpdegfnHckfjrw 2024 7:35amOctober 2024 8:04am 33.7 %Below low cfzbuh07.0-46.4[facility] [id number] [address] [facility] 40506Rvpr Corpuscular VolumeOctober 2024 7:35amOctober 2024 8:04am79.1 fLBelow low wscytc72-795JpqdjcbwmRegional Medical Center [facility] [id number] [address] [facility] 18184Yvlj Corpuscular HemoglobinOctober 2024 7:35amOctober 2024 8:04am26.1 pg24.7-34.3[facility] [id number] [address] [facility] 47154Hysp Corpuscular Hemoglobin ConcentOct2024 7:35am March 01, 2025 8:04am32.9 g/dL32.0-35.0[facility] [id number] [address] [facility] 14861Vvn Cell Distribution WidthOct2024 7:35amOct2024 8:04am26.5 %Above high lxrsyy88.9-15.3[facility] [id number] [address] [facility] 06264Kpmzutqi CountOct2024 7:35amOctober 2024 8:94ih179 10*3/qF670-415LufyrkvutRegional Medical Center [facility] [id number] [address] [facility] 85732Rapo Platelet VolumeOct2024 7:35amOctober 2024 8:04am8.0 fL6.3-10.7[facility] [id number] [address] [facility] 50497Qffmggqnffy (%) (Auto)March 01, 2025 7:35amOctober 2024 9:42am63.9 %.[facility] [id number] [address] [facility] 66983Rdrlqomwtpr (%) (Auto)March 01, 2025 7:35amOctober 2024 9:42am25.7 %.[facility] [id number] [address] [facility] 32170Jnpwvxlku (%) (Auto)March 01, 2025 7:35amOctober 2024 9:42am8.6 %.[facility] [id number] [address] [facility] 43623Obrsehxhjfj (%) (Auto)March 01, 2025 7:35amOctober 2024 9:42am1.4 %.[facility] [id number] [address] [facility] 51923Dfsynglar (%) (Auto)March 01, 2025 7:35amOctober 2024 9:42am0.4 %.[facility] [id number] [address] [facility] 04854Lxjxpjhew RBC Relative Count (auto)March 01, 2025 7:35am March 01, 2025 9:42am0.2 /100{WBC}0-0.5[facility] [id number] [address] [facility] 62487Jxapfrpcijf # (Auto)March 01, 2025 7:35amOctober 2024 9:42am3.9 10*3/uL1.8-7.7[facility] [id number] [address] [place] [address] 77604Reeczrggjoq # (Auto)March 01, 2025 7:35amOctober 2024 9:42am1.6 10*3/uL1.00-4.8[facility] [id number] [address] [place] [address] 69609Xslawgibw # (Auto)March 01, 2025 7:35amOctober 2024 9:42am0.5 10*3/uL0.0-0.8[facility] [id number] [address] [place] [address] 59404Yfeyxkbvrtg # (Auto)March 01, 2025 7:35amOctober 2024 9:42am0.1 10*3/uL0.0-0.45[facility] [id number] [address] [place] [address] 13466Uxcajecpo # (Auto)March 01, 2025 7:35amOctober 2024 9:42am0.0 10*3/uL0.0-0.2[facility] [id number] [address] [place] [address] 76704Uxx Blood Cell MorphologyOctober 2024 7:35amOctober 2024 9:42amN/[facility] [id number] [address] [place] [address] 10024MadmpsjvrxmoijJxtcqyc 2024 7:35amOctober 2024 9:42amSlightRegional Medical Center [facility]tr [id number] [address] [place] [address] 46557ObymrakejubyEgwgmaj 2024 7:35amOctober 2024 9:42am MarkedReg[facility] [id number] [address] [place] [address] 96519UszrpjhisidbRhkvwyl 2024 7:35amOctober 2024 9:42am [facility] [id number] [address] [place] [address] 44423Eredna CellsOctober 2024 7:35amOctober 2024 9:42am [facility] [id number] [address] [place] [address] 75932Pisxminu EstimateOctober 2024 7:35amOctober 2024 9:42amNormalNormMiami [facility] [id number] [address] [place] [address] 69667Anyncgkp Morphology CommentOctober 2024 7:35amOctober 2024 9:42amNormalNormMiami Valley Hospital [facility] [id number] [address] [place] [address] 76921Jkhggnmlshn Sedimentation RateAugust 2024 8:47amAugust 2024 9:47wr285 mm/hrAbove high normal0-29[facility] [id number] [address] [place] [address] 62539Dimiswsvwjm TimeOctober 2024 7:35amOctober 2024 8:28am17.5 sAbove high normal9.0-12.9A hematocrit value greater than 55% may lead to inaccurate results in coagulation testing. Patientshaving hematocrit values >55% require a special collection tube for coagulation studies. Please c ontact the laboratory at [phone] for redraw instructions.[facility] [id number] [address] [place] [address] 74298Huckqcomq Time International RatioOctober 2024 7:35am March 01, 2025 8:28am1.6INR Therapeutic Range A) Pre- and Peroperative OAT started two weeks before surgery. NOT HIP SURGERY: 1.5 - 2.5 HIP SURGERY: 2 - 3B) Primary and secondary prevention of venous THROMBOSIS: 2 - 3C) Active venous thrombosis, pulmonary embolismand prevention of recurrent venous thrombosis: 2 - 3D) Prevention of arterial thromboembolismincluding patients with mechanical heart valves: 3 - 4.5[facility] [id number] [address] [facility] 43056Bdbxpdp LevelOctober 2024 7:35amOctober 2024 8:22am 100 mg/pW24-368SQG recommended reference rangeRandom Glucose Reference Range is dependent on time and content of last meal. Glucose of more than 200 mg/dL in a nonstressed, ambulatory subject supports the diagnosisof Diabetes Mellitus. [facility] [id number] [address] [facility] 29271Xovro Urea NitrogenOctober 2024 7:35amOctober 2024 8:22am9 mg/dL7-25[facility] [id number] [address] [place] [id number] 2024 7:35amOctober 2024 8:22am 0.96 mg/dL0.60-1.20[facility] [id number] [address] [facility] 15470Nlilupdnq GFR (CKD-EPI)March 01, 2025 7:35amOctober 2024 8:22am> 60.0 mL/MinRegional Medical Center Ctr [id number] [address] [facility] 75184Eghhbo LevelOctober 2024 7:35amOctober 2024 8:22am 133 mmol/LBelow low -561VzkpwqjapRegional Medical Center Ctr [id number] [address] [place] [address] 19282Uqhxjnlxj LevelOctober 2024 7:35amOctober 2024 8:22am3.5 mmol/L3.5-5.1[facility] [id number] [address] [place] [address] 86863Sjxyfpcu LevelOctober 2024 7:35amOctober 2024 8:03za598 mmol/V42-218ZjnugqtueRegional Medical Center Ctr [id number] [address] [facility] 21362Dlsthm Dioxide LevelOctober 2024 7:35amOctober 2024 8:22am26.9 mmol/L21.0-31.0[facility] [id number] [address] [facility] 64002Viyyo GapOctober 2024 7:35amOctober 2024 8:22am7.6 mEq/L6.0-15.0[facility] [id number] [address] [facility] 49424Ozjunze LevelOctober 2024 7:35amOctober 2024 8:22am 7.9 mg/dLBelow low normal8.6-10.3[facility] [id number] [address] [place] [address] 26438Xtlgf ProteinOctober 2024 7:35amOctober 2024 8:22am 8.7 g/dL6.4-8.9[facility] [id number] [address] [facility] 91684HhjwwtlNbpdcjh 2024 7:35amOctober 2024 8:22am3.0 g/dLBelow low normal3.5-5.7[facility] [id number] [address] [place] [address] 86020GkzdjoinAesselk 2024 7:35amOctober 2024 8:22am5.7 g/dLRegional Medical Center Ctr [id number] [address] [place] [address] 03950Hfxyblg/Globulin RatioOctober 2024 7:35amOctober 2024 8:22am0.5[facility] [id number] [address] [place] [address] 81049Sdath BilirubinOctober 2024 7:35amOctober 2024 8:22am1.3 mg/dLAbove high normal0.3-1.0Samples from patients who have taken Naproxen have shown spurious elevation in Total Bilirubin levels. A metabolite of Naproxen, O-desmethylnaproxen, has been shown to interfere with the Andrea method for measuring Total Bilirubin.[facility] [id number] [address] [facility] 90177Dmymoe BilirubinOctober 2024 7:35amOctober 2024 8:22am0.40 mg/dLAbove high normal0.03-0.18[facility] [id number] [address] [facility] 61282Ywkwjvgj BilirubinOctober 2024 7:35amOctober 2024 8:22am0.9 mg/dLRegional Medical Center [facility] [id number] [address] [facility] 90997Rhhdzpfza Amino Transf (AST/SGOT)March 01, 2025 7:35am March 01, 2025 8:22am71 U/LAbove high frfwiy61-94FbfnzuolhRegional Medical Center Ctr [id number] [address] [place] [address] 28966Duxyozu Aminotransferase (ALT/SGPT)March 01, 2025 7:35am March 01, 2025 8:22am21 U/L7-52[facility] [id number] [address] [place] [address] 50358Egkvvnhp PhosphataseOctober 2024 7:35amOctober 2024 8:84io795 U/LAbove high nganqi72-690XwxcycspfRegional Medical Center Ctr [id number] [address] [place] [address] 43027FgliybfuDwkqnv 2024 8:47amAugust 2024 10:31am17.9 ng/mL11.0-306.8[facility] [id number] [address] [facility] 58456Q-Nzoiumih Protein, QuantitativeAugust 2024 8:47amAugust 2024 10:10am3.2 mg/dLAbove high normal0.0-0.5[facility] [id number] [address] [place], [place] 8384[address]Thyroid Stimulating Hormone 3rd GenAugust 2024 8:47am December 28, 2024 10:25am8.28 u[iU]/mLAbove high normal0.45-5.33[facility] [id number] [address] [place], [place] [address] [place] [address]Ygukenjx Creatinine Clearance (ChemOctober 2024 7:35am March 01, 2025 8:22amN/[facility] [id number] [address] [facility] 84408Tdvlozjrr A IgM AntibodyAugust 2024 8:47amAugust 2024 2:36amNegativeNegativeA negative anti-HAV IgM result suggests no recent orcurrent HAV infection.LabWestern [facility] Medical Center B Core IgM AntibodyAugust 2024 8:47amAugust 2024 2:36amNegativeNegativePerformed at: [facility] [address] [id number] Director: Cm Purcell PhD, Phone: [phone] M2 Antibody December 28, 2024 8:47ugu2024 1:08pm64.3 UnitsAbove high normal 0.0-20.0Negative 0.0 - 20.0 Equivocal 20.1 - 24.9 Positive >24.9Mitochondrial (M2) Antibodies are foundin 90-96% ofpatients with primary biliary cirrhosis.Performed at: [facility] [id number] Director: Cm Purcell PhD, Phone: [phone] Marker Alpha FetoproteinOctober 2024 7:35amOctober 2024 2:36am3.3 ng/mL0.0-9.2[employer] Electrochemiluminescence Immunoassay(ECLIA)Values obtained with different assay methods or kits cannotbe used interchangeably. Results cannot be interpreted asabsolute evidence of the presence or absence of malignantdisease.This test is not interpretable in females.Performed at: [facility] [id number] Director: Cm Purcell PhD, Phone: [phone] 2024 8:472024 7:08pm 121 mg/zZ761-546LxcKmru [place]2024 8:47am December 29, 2024 3:83nm9015 mg/dLAbove high oifxvd704-6432Iiyexhe confirmed ondilution.Performed at: [address] [id number] Director: Cm Purcell PhD, Phone: [phone] Muscle AntibodyAugust 2024 8:2024 1:21xh397 UnitsAbove high normal0-19Negative 0 - 19 Weak positive 20 - 30 Moderate to strong positive >30 Actin Antibodies are found in 52-85% of patients with autoimmune hepatitis or chronic active hepatitis and in 22% of patients with primary biliary cirrhosis.[facility] A Antibody Total December 28, 2024 8:2024 2:36amNegativeNegativeComment: The HAV total antibody assay detects both IgG andIgM but does not differentiate between them. A negativeresult suggests susceptibility to infection. A positiveresult could be due to vaccination, previously resolvedinfection or active infection. Testing for HAV IgM shouldbe performed if active HAV infection is suspected. Labcorpoffers profiles that will automatically reflex positive HAVtotal antibody results to IgM (e.g., panel #[id number] HAVAntibody w/ Rfx).[facility] Hepatitis B Surface AntibodyAugust 2024 8:472024 2:36amNon reactive.Non Reactive: Not immune to HBV infection. Equivocal: Unable to determine if anti-HBs is present atlevels consistent with immunity. Reactive: Anti-HBs concentration detected at greater than 10 mIU/mL. Individual is considered to be immune to infection with HBV.LabWestern [facility] Center B Core Total AntibodyAugust 2024 8:472024 2:36amNegative NegativeLabWestern Missouri Medical Center 22nd, 2025 8:47amAugu2024 2:36am30.1 mg/dL19.0-39.0Performed at: [facility] [address] [id number] Director: Cm Purcell PhD, Phone: [phone] [facility] PhenotypeAugust 2024 8:472024 7:08pmMz. MM Phenotype is considered to be normal , producingnormal serum levels of vkjhy-3-qrumzzvx inhibitor andnot associated with clinical disease. Associated U3Hkvkdo serum levels in other phenotypes and theirincidence in the general population are shown in thetable below.Phenotype Population % function A-1-AT Conc.* Incidence % compared to MM (Typical Range) MM 86.5% 100% (96 - 189) MS 8.0% 86% (83 - 161) MZ 3.9% 61% (60 - 111) FM 0.4% 100% (93 - 191) SZ 0.3% 41% (42 - 75) SS 0.1% 64% (62 - 119)ZZ 0.05% 19% (16 - 38) FS 0.05% 70% (70 - 128) FZ Unknown 46% (44 - 88) FF Unknown Unknown*A-1-AT concentration in the homozygous MM phenotype is taken as the reference normal. Percent deficiency ineach phenotype is reported relative to this reference. Ranges used to confirm phenotype.Performed at: [facility])[address] [id number] Director: Cm Purcell PhD, Phone: [phone] at: [facility] [address] [id number] Director: Jacoby Truong MD, Phone: [phone] /Kidney Microsomal TiterAugust 2024 8:472024 11:08am1.6 Units0.0-20.0Negative 0.0 - 20.0 Equivocal 20.1 - 24.9 Positive >24.9LKM type 1 antibodies are detected in patients withautoimmune hepatitis type 2 and in up to 8% ofpatients with chronic HCV infection.Performed at: [address] [id number] Director: Cm Purcell PhD,Phone: [phone] B Surface Antigen December 28, 2024 8:472024 2:36amNegativeNegativeLabCorp C Antibody (EIA)December 28, 2024 8:47amA2024 2:36amNon reactiveNon ReactiveLabCorp (1&2) Antibody Screen December 28, 2024 8:472024 2:36amNon reactiveNon Reactive HIV-1/HIV-2 antibodies and HIV-1 p24 antigen were NOTdetected. There is no laboratory evidence of HIV infection.HIV NegativePerformed at: [address] [id number] Director: Cm Purcell PhD, Phone: [phone] Antibody ScreenAugust 2024 8:472024 11:36amPositiveAbnormal (applies to non-numeric results).Negative <1:80 Borderline 1:80 Positive >1:80Speckled cytoplasmic fluorescence is present. Theantibodies noted in this pattern may be associated with,but not restricted to, primary biliary cirrhosis (PBC),polymyositis and dermatomyositis (PM/DM), and/or systemiclupus erythematosus (SLE).[facility] Ab Homogeneous PatternAugust 2024 8:472024 11:36am1:640Above high normal.ICAP nomenclature: AC-1[facility] Antibody Comment 2Augu2024 8:472024 11:36amComment.Pattern Potential Disease Association Homogeneous Systemic Lupus Erythematosus, Drug Induced Systemic Lupus Erythematosus, Chronic Autoimmune hepatitis, Juvenile Idiopathic Arthritis Speckled Sjogren Syndrome, Systemic Lupus Erythematosus, Subacute Cutaneous Lupus, Lupus, Congenital Heart Block, Mixed Connective Tissue Disease, Scleroderma-diffuse, Scleroderma- Autoimmune Myositis Overlap Syndrome, Systemic Lupus Cwgzpsveuette-Typerrthmdm-Ndzbjoggpv Myositis Overlap Syndrome, Systemic Autoimmune Rheumatic Disease, Undifferentiated Connective Tissue Disease Nucleolar Systemic Sclerosis, Scleroderma-Autoimmune Myositis Overlap Syndrome, Sjogren Syndrome, Raynaud phenomenon, Pulmonary Arterial Hypertension, Systemic Autoimmune Rheumatic Disease, Cancer Centromere Scleroderma-CREST, Limited Cutaneous SSc, Raynaud's Phenomenon, Primary Biliary Cholangi tis Nuclear Dot Primary Biliary Cholangitis Nuclear Primary Biliary Cholangitis, AutoimmuneMembrane Hepatitis/Liver disease, Systemic Autoimmune Rheumatic Disease, Autoimmune Cytopenias, Linear Scleroderma, Antiphospholipid Syndrome Performed at: [facility] RehabilitationIxsbyj[address] [place], [place] [id number] Director: Cm Purcell PhD, Phone: [phone] (Deamidated) IgA AntibodyAugust 2024 8:472024 3:36pm4 units0-19Negative 0 - 19 Weak Positive 20 - 30 Moderate to Strong Positive >30[facility] Gliadin (Deamidated) IgG AntibodyAugust 2024 8:472024 3:36pm2 units0-19Negative 0 - 19 Weak Positive 20 - 30 Moderate to Strong Positive >30[facility] Transglutaminase IgA AbA2024 8:472024 3:36pm<2 U/mL0-3Negative 0 - 3 Weak Positive 4 - 10 Positive >10 Tissue Transglutaminase (tTG) has been identified as the endomysial antigen. Studies have demonstr- ated that endomysial IgA antibodies have over 99% specificity for gluten sensitive enteropathy.[facility] Tissue Transglutaminase IgG AbA2024 8:2024 3:36pm10 U/mLAbove high normal0-5Negative 0 - 5 Weak Positive 6 - 9 Positive >9[facility] IgA AntibodyAuunion county general hospitalt 2024 8:472024 3:36pmNegativeNegativeLabCorp IgA (Nephelometry)December 28, 2024 8:472024 3:37jy803 mg/bK48-489Muprwiqws at: [facility] [address] [place], [place] [id number] Director: Cm Purcell PhD, Phone: [phone] Genetic ScreenAugust 2024 8:47amAugust 2024 1:08pmComment.Result:c.845G>A (p.Vtn819Kvf) - Not Detectedc.187C>G (p.Nbf06Dro) - Not Detectedc.193A>T (p.Zfd39Kbg) - Not DetectedNot associated with increased risk to develop clinicalsymptoms of Hereditary Hemochromatosis. In symptomaticindividuals, other causes of iron overload should beevaluated. SeeAdditional Information and Comments.Additional Clinical Information:Hereditary hemochromatosis (HFErelated) is an autosomalrecessive iron storage disorder. Patients [...] recommended for patientswho are homozygous for c.845G>A (p.Ewu549Sij) and have yetto experience clinical symptoms.Comment s:The most common HFE variants associated with hereditaryhemochromatosis are c.845G>A (p.Ocs306Asg), c.187C>G(p.Twh07Xtx), c.193A>T (p.Edj18Wlm). While patientshomozygous for c.845G>A (p.Ywa320Eea) are the most likelyto present clinical symptoms, less than 10% developclinically significant iron overload with tissue and organdamage.Genetic counseling is recommended to discuss the potentialclinical implications of positive results, as well asrecommendations for testing family members.Genetic Coordinators are available for health careproviders to discuss results at [phone] Details:Three variants analyzed:c.845G>A (p.Aix955Psh), commonly referred to as C282Yc.187C>G (p.Vtt97Yam), commonly referred to as H63Dc.193A>T (p.Yps47Pyl), commonly referred to tdD59VKiepjmc/Limitations:DNA Analysis of the HFE gene (NM_000410.4) was [...] was developed and its performancecharacteristics determined by [facility]. It has not beencleared or approved by the Food and Drug Administration.References:Rogerio BR, Maximilian PC, Mushtaq KV, Segundo LW, Chay ;[employer] [employer] Liver Diseases.Diagnosis and management of hemochromatosis: 2011 practiceguideline by the [place] Association for the Study ofLiver Diseases. Hepatology. 2011 Nov;54(1):328-43. doi:10.1002/hep.83554. PMID: 51550155; PMCID: DLH4620535.Sameera G, Kylah P, Lisa DW, Pierre H, Garfield O,Rafa S, Nathen I, Rodney M, Darren S. [facility] best practiceguidelines for the molecular genetic diagnosis ofhereditary hemochromatosis (HH). Eur J Hum [place]anca. 2016Ap r;24(4):479-95. doi: 10.1038/ejhg.2015.128. Epub 2014. PMID: 98775210; PMCID: BDX2905392.[facility] NoteAugust 2024 8:47amAugust 2024 1:08pmComment.Technical Component performed at [facility] RTPProfessional Component performed by:Nela Pierce, PhD, FACMGWSTGD6, [facility], [address] [facility] [id number] at: [facility] [id number] [place], [place] [id number] Director: Cristina Sheehan [facility], Phone: [phone] C InterpretationAugust 2024 8:47amAugust 2024 2:36amComment.Not infected with HCV unless early or acute infection issuspected (which may be delayed in an immuno compromisedindividual), or other evidence exists to indicate HCVinfection. LabWestern [facility] QualitativeAugust 2024 8:47am January 03, 2025 5:08pmPositiveAbnormal (applies to non-numeric results). [facility] QuantitativeAugust 2024 8:47am January 03, 2025 5:08pm58 ng/mL.Analyzed compound: PEth 16:0/18:1. 5-hmkiqgekv-2-aqkxmr-oe-uvmnves-3-phosphoethanol.Analysis performed by Liquid Chromatography withTandem Mass Spectrometry [...] was developed and its performance characteristicsdetermined by [facility].It has not been cleared or approvedby the Food and Drug Administration.Performed at: [facility] [place] [address] [id number] Director: Maryanne Zaidi [facility], Phone: [phone] CalprotectinAugust 2024 8:00amAugust 2024 6:36am62 ug/g0-120 Concentration Interpretation Follow-Up< 5 - 50 ug/g Normal None>50 -120 ug/g Borderline Re-evaluate in 4-6 weeks >120 ug/g Abnormal Repeat as clinically indicatedPerformed at: [facility] [address] [place], [place] [id number] Director: Jacoby Truong MD, Phone: [phone] difficile Toxin B GeneAugust 2024 8:00amAugust 2024 11:27amNegativeNegativeTesting performed by [facility] [id number] [address] [place] [id number] Vital Signs Vital Reading Result Reference Range Collection Date/Time Height 64.5 [in_i] December 27, 2024 7:73yeHnyrcg30.71 kgAugust 2024 7:08amHeart Rate75 /min 60-100August 2024 7:08amBP Qizrtqqo092 mm[Hg]100-140August 2024 7:08amBP Lkjsegsxx71 mm[Hg]60-100August 2024 7:08amBMI (Body Mass Index) 33.7 kg/w2Dfcikz 2024 7:50bdLjzavc46 [in_i]January 22, 2025 9:48am Mydbgg83.71 kgSeptember 2024 9:48amHeart Rate63 /sdp60-029Jmqooxkpg 2024 12:00pmRespiratory rate20 /wmp11-75Onufkfiwf 2024 12:00pmOxygen saturation by Pulse yiqcxmex62 %95-100September 2024 12:00pmBP Ldbnucnq784 mm[Hg]100-140September 2024 12:00pmBP Clxnoantx08 mm[Hg]60-100September 2024 12:85xzCviqin73 [in_i]February 27, 2025 12:12tbQnnyhp62.89 kgOctober 2024 12:06pmHeart Rate83 /yye65-303Tfgmrqx 2024 12:06pmBP Systolic 127 mm[Hg]100-140October 2024 12:06pmBP Izkgqmtdu29 mm[Hg]60-100October 2024 12:06pmBMI (Body Mass Index)34.4 kg/w3Meddqqj 2024 12:06pm Qazrmj53 [in_i]March 21, 2025 2:31zwLcfiig56.10 kgNov2024 2:27pmHeart Rate92 /gni15-374IsqaeajsMarch 21, 2025 2:27pmBP Yhigwrae091 mm[Hg] 100-140March 21, 2025 2:27pmBP Iyitbpkso81 mm[Hg]60-100March 21, 2025 2:27pmBMI (Body Mass Index)30.1 kg/t3Tuxjiszi2024 2:27pm Advance Directives Advance Directive Response Recorded Date/ Time Advance Directives No February 27, 2025 12:40pm Insurance Providers Guarantor Yaa Garcia Address [address] [facility] [address]Nfmtgfo Info.Home Phone: Payer Group Member ID Coverage Type Subscriber Relationship to Subscriber Effective Date Expiration Date [facility] Id: [id number] J Baker Id: [id number] [address] [facility] [address] Home Phone: Email: [email or web address] J Baker Id: [id number] [address] [facility] [address] Home Phone: Email: [email or web address] Encounters Encounter Location(s) Arrival/Admit Date Discharge/Departure Date Discharge/Departure Disposition Provider(s) Departed Physician/ Provider Office Visit -[facility] December 27, 2024 7:54am December 27, 2024 8:54am Discharged to home care or self care (routine discharge) Dimple Caraballo MD Departed Clinical -Lab [facility] December 28, 2024 9:37am December 28, 2024 9:38am Discharged to home care or self care (routine discharge) Dimple Caraballo MD Non-patient / Non-visit -[facility] 2024 3:08pm Arnol Lawson-patient / Cbg-rcdmz-[facility]Sept2024 10:35Arnol Frausto-patient / Scu-nhxcm-[facility] January 23, 2025 11:39amAmy Ravi-patient / Ctq[facility]wufpp[facility] 2024 9:45amCatlizette Castro CMADeparted Physician/Provider [facility] February 27, 2025 1:41pmDischarged to home care or self care (routine discharge)JAN Medeiroseparted Clinical-[facility] 8:30amOctober 2024 8:31amDischarged to home care or self care (routine discharge)Arnol Medeiros-patient / Fcu[facility]lwyaf[facility] March 12, 2025 1:58pmPilar Lawsonarted Physician/Provider [facility] 2:26pmNov2024 3:20pmDischarged to home care or self care (routine discharge)Ranjana Bull MD Recent Diagnosis Onset Date Admit Date Cirrhosis Unknown December 27 7:54am Dysphagia Unknown December 27 7:54am Elevated LFTs Unknown December 27 7:54am History of rectal cancer Unknown December 27, 2024 7:54am Pancreatic disease Unknown December 27, 2024 7:54am Ascites Unknown February 27 1:02pm Cirrhosis Unknown February 27 1:02pm Decompensated cirrhosis Unknown February 27, 2025 1:02pm Elevated LFTs Unknown February 27 1:02pm Primary biliary cholangitis Unknown 2024 1:02pm Hypokalemia Unknown March 21, 2 025 2:26pm Assessments Author Dimple Caraballo [facility]woodsAuthoredMyrtle [place] 2024 7:89kf47-aavt-ptx female with history of rectal cancer s/p chemoradiation in 2005 [...] panel, fecal elastase, will arrange for colonoscopy Author Dimple [facility] HamiltonAuthoredOctober 2024 12:97cy38-jtbk-ckb female with history of rectal cancer s/p chemoradiation in 2005, history of ovarian cyst s/p resection (02/14/25), decompensated liver cirrhosis came today for follow-up +alternating constipation and diarrhea(predominantly constipation) for years. EGD on 01/22/2025 showed Small esophageal varices, Portal hypertensive gastropathy, gastritis vs GAVE, gastric biopsies of negative for H. pylori, duodenal biopsies are negative for celiac. Colonoscopy on 01/22/2025 showed colonic polyps, diverticulosis, internal hemorrhoids, colonic biopsies were negative for microscopic colitis. + Alcohol use for years MOHINI and SMA are positive. Antimitochondrial antibody is positive. Alpha-1 antitrypsin genotype is MZ - Patient was counseled about the importance of alcohol abstinence. - Alkaline phosphatase is elevated and patient has positive antimitochondrial antibody antinuclear antibody and smooth muscle antibodies.. Will arrange for liver biopsy to evaluate for autoimmune hepatitis and primary biliary cholangitis - MELD is 8. Continue to monitor MELD labs -Regarding ascites. Will start Lasix 40 mg daily and spironolactone 100 mg daily and check BMP in 3 days. Will arrange for therapeutic paracentesis. - Ultrasound on 11/27/2024 showed no liver mass. Will arrange for ultrasound and check AFP every 6 months for hepatocellular carcinoma screening. - Regarding alternating constipation/diarrhea, TSH was elevated, will refer to endocrinology for evaluation. Fecal calprotectin is normal, colonic biopsies were negative for microscopic colitis, duodenal biopsies were negative for celiac HIV and C. difficile were negative. Plan of Treatment Future Tests Future scheduled test information is unavailable Pending Tests Test Name Ordered Date Scheduled Date Comprehensive Metabolic Panel March 21 3:04pm Future Visits Future appointment information is unavailable Future Procedures Procedure Name Ordered Date Scheduled Date Discharge Order January 22, 2025 11:25am Sep tember 2024 11:25am CT drain paracentesis February 27, 2025 12:28pm CT guided biopsyOctober 2024 12:29pm Future Medications Future medication information is unavailable Patient Instructions Instruction Admit Date Esophageal Varices (DC) Gastritis - ED discharge instructions [facility] Diverticulosis Discharge Instructions [facility] Hemorrhoids Discharge Instructions Know your Meds [facility] Colon Polypectomy Discharge InstructionsSept2024 10:35am
--- OUTSIDE RECORDS SUMMARY | 2025-03-25 07:33 | XMS_ITS | CCD ---
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 Name Role Phone DR KATE PRADO Admitting Unavailable EVE, DR KATE Ji Attending Unavailable PRADO, DR KATE Ji Primary Care Unavailable WEST, KATI Dawkins Consulting Unavailable PRADO, DR KATE Ji Consulting Unavailable PRADO, DR KATE Ji Admitting Unavailable PRADO, DR KATE Ji Attending Unavailable PRADO, DR KATE Ji Primary Care Unavailable PRDAO, DR KATE Ji Consulting Unavailable PRADO, DR KATE Ji Admitting Unavailable PRADO, DR KATE Ji Attending Unavailable PRADO, DR KATE Ji Primary Care Unavailable PRADO, DR KATE Ji Consulting Unavailable KATE PRADO Primary Care Physician Kate Prado Kate Prado Unavailable Unavailable Unavailable Dr. Kate Prado Primary Care Unav ailEleazar Barba Attending Unavailable Eleazar Murray Referring Unavailable Dr. Kate Prado Primary Care Unav ailable Eleazar Murray Attending Unavailable Kate Prado MD Primary Care Provider ELEAZAR MURRAY Attending Unavailable KATE PRADO Primary Care UnavailArvind Whitmore Attending Unavaila ble Unavailable Primary Care Provider UnavailKate Ureña MD Primary Care Provider Kate Prado MD Primary Care Provider Kate Prado MD Attending Provider [phone] Dimple Caraballo MD Attending Provider Emily Robles MD Attending Provider Dimple Caraballo MD Other Provider Kate Prado MD Primary Care Provider [phone] FLORENTIN ESCOTO Attending Unavailable ALLEY LUCAS Attending Unavailable PRADO, KATE Referring Unavailable LUCAS, ALLEY Attending Unavailable PRADO, KATE Referring Unavailable LUCAS, ALLEY Attending Unavailable PRADO, KATE Referring Unavailable FOWLER, ANJALIKA Referring Unavailable PRADO, KATE E Primary Care Unavailable Kate Prado MD Primary Care Provider Kate Prado MD Primary Care Provider Kate Prado MD Attending Provider [phone] Gillian Cueva CMA Attending Provider UnavailGuera Fenton CMA Attending Provider Unavaila ble FOWLER, ANJALIKA Attending Unavailable PRADO, KATE E Referring Unavailable PRADO, KATE E Primary Care Unavailable PRADO, KATE E Referring Unavailable PRADO, KATE E Primary Care Unavailable FOWLER, ANJALIKA Attending Unavailable FOWLER, ANJALIKA Referring Unavailable PRADO, KATE E Primary Care Unavailable FOWLER, ANJALIKA Referring Unavailable PRADO, KATE E Primary Care Unavailable FOWLER, ANJALIKA Attending Unavailable PRADO, KATE E Referring Unavailable PRDAO, KATE E Primary Care Unavailable FOWLER, ANJALIKA Admitting Unavailable FOWLER, ANJALIKA Attending Unavailable PRADO, KATE E Primary Care Unavailable KAMALA TALBOT Consulting Unavailable MIKA CRUM Consulting Unavailable FOWLER, ANJALIKA Attending Unavailable PRADO, KATE E Referring Unavailable PRADO, KATE E Primary Care Unavailable Asaad, Imad Attending Unavailable Asaad, Imad Admitting Unavailable Prado, Kate E Primary Care Unavailable Prado, Kate E Admitting Unavailable Prado, Kate E Attending Unavailable Prado, Kate E Primary Care Unavailable Asaad, Imad Attending Unavailable Asaad, Imad Admitting Unavailable Prado, Kate E Primary Care Unavailable Asaad, Imad Attending Unavailable Asaad, Imad Admitting Unavailable Prado, Kate E Primary Care Unavailable ANAYELI GRISSOM Attending Unavailable PRADO, KATE E Referring Unavailable PRADO, KATE E Primary Care Unavailable JOYCE DOCKERY Attending Unavailable PRADO, KATE E Referring Unavailable PRADO, KATE E Primary Care Unavailable ANAYELI GRISSOM Referring Unavailable PRADO, KATE E Primary Care Unavailable ANAYELI GRISSOM Admitting Unavailable BIN, ANAYELI G Attending Unavailable BIN, ANAYELI G Referring Unavailable PRADO, KATE E Primary Care Unavailable PRADO, KATE E Referring Unavailable PRADO, KATE E Primary Care Unavailable KATI WORKMAN Attending Unavailable KATI WORKMAN Referring Unavailable PRADO, KATE E Primary Care Unavailable PRADO, KATE E Primary Care Unavailable MARY ANN MAE Attending Unavailable BIN, ANAYELI G Referring Unavailable PRADO, KATE E Primary Care Unavailable FEDERICA BLOOM Attending Unavailable PRADO, KATE E Referring Unavailable PRADO, KATE E Primary Care Unavailable PRADO, KATE E Referring Unavailable PRADO, KATE E Primary Care Unavailable BIN, ANAYELI G Attending Unavailable BIN, ANAYELI G Referring Unavailable PRADO, KATE E Primary Care Unavailable PRADO, KATE E Referring Unavailable PRADO, KATE E Primary Care Unavailable Allergies Allergy ClassificationReported Allergen(s)Allergy TypeDate of OnsetReaction(s) Facility (14 sources)Codeine; Translations: [CODEINE]Drug Uagwnck90-88-3188VhciCssReg[facility] (2 sources)Phenazopyridine; Translations: [Pyridium]Drug Qgozuqy53-90-3312XkwUpper [facility] (20 sources)Codeine; Translations: [codeine]Drug Oahzcpn92-76-7864hiboCxhztkWilson [facility] ([facility] sources)Phenazopyridine; Translations: [phenazopyridine]Drug Allergy 21-37-8561Dykywbwx (disorder), Nausea/vomiting, Nausea, Nausea Only, [facility] (20 sources)prednisoLONE; Translations: [prednisolone ophthalmic]Drug Allergy 68-26-6696Hmjoyiu Lymph nodesUniversity Hospitals Tripoint [facility] (8 sources)CodeineDrug AllergyH[facility] [place] Other (1 source)CodeineDrug Btwblaz80-69-2906VmnqmhzktUniversity Hospitals Tripoint [facility] Repository (1 source)PhenazopyridineDrug Fwpwmlw20-70-5942OtkjncqvjUniversity Hospitals [facility] Repository Medications Current Medications MedicationDrug Class(es)DatesSig (Normalized)Sig (Original)acetaminophen 500 mg oral tablet (13 sources)Start: 77-48-7093tmxa 1 tablet by mouth every six hoursacetaminophen (TYLENOL EXTRA STRENGTH) 500 mg tablet Take 1 tablet (500 mg total) by mouth every 6 (six) hours. 60 tablet 02/18/2025 ActiveamLODIPine 5 mg oral tablet (20 sources)Dihydropyridine Calcium Channel BlockerStart: 22-47-8585hgzq 1 tablet by mouth in the morningamLODIPine (NORVASC) 5 mg tablet Indications: hypertension Take 1 tablet (5 mg total) by mouth in the morning. Indications: high blood pressure. 30 tablet 02/19/2025 ActiveStart: 07-04-2023 End: 26-73-1595jxql 1 tablet by mouth once dailyAmlodipine 10 mg tablet Discontinued 0 .ROUTE .COMPLEX 90 July 04, 2024 11:15am December 24, 2024 12:25pm TAKE 1 TABLET BY MOUTH EVERY DAY FOR 30 DAYSStart: 01-21-2023 End: 64-18-9854gdtc 1 tablet by mouth once dailyAmlodipine 10 mg tablet Discontinued 10 MG PO Daily 30 07 03January 21, 2023 12:00am July 04, 2023 4:14pmStart: 01-19-2023 End: 84-70-2668vgwb 1 tablet by mouth once dailyAmlodipine 5 mg Tablet Discontinued 5 MG PO Daily January 21, 2023 12:00am January 21, 2023 4:16pmamoxicillin 500 mg / clavulanate 125 mg oral tablet (1 source)Penicillin-class AntibacterialStart: 02-18-2025 End: 87-07-1541gtfw 1 tablet by mouth onceamoxicillin-pot clavulanate (AUGMENTIN) 500-125 mg per tablet Take 1 tablet by mouth every 12 (twelve) hours for 3 days. 5 tablet 02/18/2025 02/21/2025 ActiveAscorbic Acid / POLYETHYLENE GLYCOL 3350 / Potassium Chloride / Sodium Ascorbate / Sodium Chloride / sodium sulfate (7 sources)Osmotic Laxative, Vitamin CStart: 12-78-1705Huorty 140 g reconstituted solution TAKE FIRST DOSE 4PM THE DAY BEFORE COLONOSCOPY AND 2ND DOSE 11PM THE NIGHT BEFORE COLONOSCOPY 12/27/2024 ActiveStart: 12-27-2024 End: 91-02-0674envn 1 dose by mouth once bxtfjFpk4921-Fpf Gsh-Hwee-Lxb-Asb-C (Plenvu) 140-9-5.2 gram powder in packet, sequential Discontinued 140 ML PO .COMPLEX 1 1 0 December 27, 2024 12:00am January 22, 2025 10:45am Bowel Prep First dose at 4pm the day before colonoscopy, Second dose at 11pm the night before the colonoscopyStart: 12-27-2024 End: 42-37-6495jrbc 1 dose by mouth once frlkyLvv1422-Jrh Iqk-Uibf-Fuj-Asb-C (Plenvu) 140-9-5.2 gram powder in packet, sequential Discontinued 140 ML PO .COMPLEX 1 1 December 27, 2024 12:00am January 22, 2025 10:45am First dose at 4pm the day before colonoscopy, Second dose at 11pm the night before the colonoscopyStart: 67-82-9467gope 1 dose by mouth once dailyatorvastatin 40 mg oral tablet (20 sources)HMG-CoA Reductase InhibitorStart: 01-19-2023 End: 64-91-1562xvyt 1 tablet by mouth in the morningatorvastatin (LIPITOR) 40 mg tablet Take 1 tablet (40 mg total) by mouth in the morning. 5Active Start: 80-81-1742grkgtwlrjxpi Refills(s) 0 Start Date: 07/15/22 Status: Ordered Start: 07-07-2022 End: 07-87-8681zcpr 1 tablet by mouth every twenty-four hoursAtorvastatin Calcium 20 MG 1 tablet Orally Once a day for 90 days Jul, Active azithromycin 250 mg oral tablet (5 sources)Macrolide AntimicrobialStart: 74-19-8635Pyjkpnuynxpl 250 MG as directed Orally 2 tabs po today, then 1 tab daily x 4 more days for Apr, ActiveStart: 55-77-6814Ieoabjprfcsp 250 MG as directed Orally 2 tabs po today, then 1 tab daily x 4 more days for Dec, Not-Taking cholestyramine resin 4000 mg powder for oral suspension (20 sources)Bile Acid SequestrantStart: 92-04-1432brsewofkgvwfda 4 g/9 g Oral Pwdr Refill(s) 0 Start Date: 04/08/23 Status: OrderedStart: 04-08-2023 cholestyramine 4 g/9 g Oral Pwdr Refill(s) 0 Start Date: 04/08/23 Status: Ordered Start: 18-60-5146kzhakzshyvacmw (Questran) 4 gram packet DISSOLVE 1 PACKET IN WATER OR JUICE AND TAKE DAILY 0 12/06/2022 ActiveStart: 12-03-2022 End: 52-96-8910Uqyiwhwbjgvcqe (With Sugar) Powder Discontinued 1 EACH PO As Directed January 21, 2023 12:00am July 11, 2023 12:04pmStart: 07-15-2022 Questran 4 g/9 g oral powder = 1 packet(s), Oral, Daily, # 30 EA, Refills(s) 11, Pharmacy: [facility]/pharmacy #[id number], 168, cm, 07/15/22 13:08:00 EST, Height/Length Dosing, 100.5, kg, 07/15/22 13:08:00 EST, Weight Dosing Start Date: 07/15/22 Status: OrderedCholestyramine Powder USE DIRECTED. Quantity: 0 Refills: 0 Ordered: 19-Jan-2023 DO Activeciprofloxacin 500 mg oral tablet (3 sources)Quinolone AntimicrobialStart: 07-15-2022 End: 01-29-1384lngv 1 tablet by mouth twice dailyCipro 500 mg Tab 500 mg = 1 tab(s), Oral, BID, X 10 day(s), # 20 tab(s), Refills(s) 0, Pharmacy: [facility] /pharmacy #[id number], 168, cm, 07/15/22 13:08:00 EST, Height/Length Dosing, 100.5, kg, 07/15/22 13:08:00EST, Weight Dosing Start Date: 07/15/22 Stop Date: 07/25/22 Status: Ordereddocusate sodium 50 mg / sennosides, prison 8.6 mg oral tablet (13 sources)Start: 05-70-5257oapy 2 tablets by mouth once dailysennosides- docusate sodium (SENOKOT-S) 8.6-50 mg Take 2 tablets by mouth nightly. 60 tablet 02/18/2025 Activefolic acid 1 mg oral tablet (20 sources)Start: 11-23-2024 End: 35-26-8268urzp 1 tablet by mouth once dailyfurosemide 40 mg oral tablet (5 sources)Loop DiureticStart: 02-27-2025 End: 41-98-3129hzdn 1 tablet by mouth once daily, then take 1 tablet by mouth once dailyfurosemide (LASIX) 40 mg tablet Take 1 tablet (40 mg total) by mouth once daily. TAKE 1 TABLET BY MOUTH EVERY DAY FOR 30 DAYS 02/27/2025 03/29/2025 ActiveLevsin (11 sources)Start: 77-66-8724Sbbaeh Refills(s) 0 Start Date: 07/15/22 Status: Orderedhyoscyamine (Anaspaz,Levsin) 0.125 MG tablet every 4 (four) hours Active lactulose 667 mg/ml oral solution (19 sources)Osmotic LaxativeStart: 27-00-8759qalkivpkp (CHRONULAC) 10 gram/15 mL solution Take 15 mL (10 g total) by mouth 2 (two) times a day as needed (Titrate to have 2 bowel movements a day). 237 mL 1 02/04/2025 Activelevothyroxine sodium 0.15 mg oral tablet (20 sources)l-ThyroxineStart: 82-88-3867ryju 1 tablet by mouth in the morning levothyroxine (SYNTHROID, LEVOTHROID) 150 MCG tablet Take 1 tablet (150 mcg total) by mouth in the morning. 12/03/2024 ActiveStart: 08-08-2023 End: 63-79-6211gema 1 tablet by mouth once dailyLevothyroxine 150 mcg tablet Discontinued 0 .ROUTE .COMPLEX 90 0 December 03, 2024 3:25pm February 26, 2025 4:22pm TAKE 1 TABLET BY MOUTH EVERY DAYStart: 01-21-2023 End: 80-87-8093ntfz 1 tablet by mouth once dailyLevothyroxine 150 mcg Tablet Discontinued 150 MCG PO Daily January 21, 2023 12:00am August 08, 2023 11:52amStart: 55-84-8998fnbp 1 tablet by mouth once dailySynthroid 200 mcg (0.2 mg) Tab 200 mcg = 1 tab(s), Oral, Daily, Refills(s) 0 Start Date: 03/31/20 St atus: Ordered End: 16-81-3150nztpcmxnlnwmh (SYNTHROID, LEVOTHROID) 175 MCG tablet Indications: hypothyroidism Take 150 mcg by mouth in the morning. Indications: a condition with low thyroid hormone levels. 01/29/2025 Discontinuedtake 1 tablet by mouth once dailyLevothyroxine Sodium 150 MCG TAKE 1 TABLET BY MOUTH EVERY DAY for 90 ActivemethylPREDNISolone 4 mg oral tablet (5 sources)CorticosteroidStart: 16-71-6830nqdawdVBHMZUNnvgkw 4 MG as directed Orally for 6 days Apr, ActiveStart: 77-50-3275lyaaeuGKJKPZOrktoe 4 MG as directed Orally for 6 days Dec, Not-Takingmetoclopramide 5 mg oral tablet (19 sources)Dopamine-2 Receptor AntagonistStart: 39-40-0772mdrx 1 tablet by mouth four times daily as needed for nauseametoclopramide (REGLAN) 5 mg tablet Take 1 tablet (5 mg total) by mouth 4 (four) times a day as needed (for nausea). 90 tablet 3 02/04/2025 Ofnxkx08 hr metoprolol succinate 50 mg extended release oral tablet (2 sources)beta-Adrenergic BlockerStart: 03-15-7929secg 1 tablet by mouth every twenty-four hoursMetoprolol Succinate ER 50 MG 1 tablet Orally Once a day Jan, ActiveoxyCODONE hydrochloride 5 mg oral tablet (2 sources)Opioid AgonistStart: 02-18-2025 End: 28-81-1804lguu 1 tablet by mouth every six hours as needed for pain oxyCODONE (ROXICODONE) 5 mg immediate release tablet Indications: Post-operative pain Take 1 tablet(5 mg total) by mouth every 6 (six) hours as needed for pain for up to 5 days. Max Daily Amount: 20mg 20 tablet 02/18/2025 02/23/2025 Active pantoprazole 40 mg delayed release oral tablet (20 sources)Proton Pump InhibitorStart: 84-87-6181fmra 1 tablet by mouth once daily before breakfastpantoprazole (PROTONIX) 40 mg EC tablet Take 1 tablet (40 mg total) by mouth every morning before breakfast. 01/22/2025 Activepolyethylene glycol 3350 75791 mg powder for oral solution (3 sources)Osmotic LaxativeStart: 27-04-8286otvctzrmnetk glycol 3350 881021 mg / potassium chloride 1480 mg / sodium bicarbonate 5720 mg / sodium chloride 82441 mg powder for oral solution (1 source)Osmotic LaxativeStart: 11-17-2732PbPOITAE Lorenzo oral powder for reconstitution See Instructions, 1 EA, Refill(s) 0, Prior to colonoscopy., [facility]/pharmacy #[id number], 168, cm, 07/15/22 13:08:00 EST, Height/Length Dosing, 100.5, kg, 07/15/22 13:08:00 EST, Weight Dosing Start Date: 08/02/22 Status: Ordered predniSONE 20 mg oral tablet (3 sources)Start: 24-98-1312xygc 2 tablets by mouth every twenty-four hours predniSONE 20 MG 2 tablets Orally Once a day for 5 days Feb, Active Psyllium (6 sources)Start: 70-39-2815Owhsaevbk Refills(s) 0 Start Date: 09/03/22 Status: Orderedspironolactone 100 mg oral tablet (5 sources)Aldosterone AntagonistStart: 02-27-2025 End: 26-59-8530bbur 1 tablet by mouth in the morning, then take 1 tablet by mouth once dailyspironolactone (ALDACTONE) 100 mg tablet Take 1 tablet (100 mg total) by mouth in the morning. TAKE1 TABLET BY MOUTH EVERY DAY FOR 30 DAYS. 02/27/2025 03/29/2025 Activeursodiol 300 mg oral capsule (2 sources)Bile AcidStart: 75-86-5601xwiv 1 capsule by mouth twice dailyVitamin D3 (10 sources)Start: 18-81-3066bojh 25 ug by mouth once dailyVitamin D3 25 mcg, Oral, Daily, Prophylaxis Start Date: 04/01/20 Status: Ordered Completed/Discontinued Medications MedicationDrug Class(es)DatesSig (Normalized)Sig (Original)[id number] 200 actuat albuterol 0.09 mg/actuat metered dose inhaler (15 sources)beta2-Adrenergic AgonistStart: 07-08-2023 End: 73-36-7739argx 1 puff(s) by inhalation every four hoursAlbuterol Sulfate 90 mcg/actuation HFA aerosol inhaler Discontinued 2 PUFF INHALATION Every 4 hours July 08, 2023 1:00am February 23, 2024 9:27amStart: 04-56-1134rgjm 2 puff(s) by inhalation every four hours as neededAlbuterol Sulfate HFA 108 (90 Base) MCG/ACT 2 puff Inhalation every 4 hrs prn Dec, ActiveStart: 01-06-2023 take 2 puff(s) by inhalation every four hours as neededAlbuterol Sulfate HFA 108 (90 Base) MCG/ACT 2 puff Inhalation every 4 hrs prn Dec, ActiveStart: 22-53-8750hrsb 2 puff(s) by inhalation every four hours as neededAlbuterol Sulfate HFA 108 (90 Base) MCG/ACT 2 puff Inhalation every 4 hrs prn Dec, Activeaspirin 325 mg oral tablet (8 sources)Platelet Aggregation Inhibitor, Nonsteroidal Anti-inflammatory Drug Start: 01-21-2023 End: 11-18-7928gdli 1 tablet by mouth once dailyAspirin 325 mg Tablet Discontinued 325 MG PO Daily January 21, 2023 12:00am January 21, 2023 4:16pmStart: 24-26-1507kabr 1 tablet by mouth once dailyAspirin 325 MG Oral Tablet TAKE 1 TABLET DAILY. Quantity: 90 Refills: 3 Ordered: 19-Jan-2023 Eleazar Murray MD Start : 19-Jan-2023 ActiveBCG live (KARIN BCG) 50 mg in sodium chloride 0.9 % (PF) 50 mL bladder instillation (1 source)Start: 03-19-2025 End: 09-93-348723 mg, intravesical, Once, On Tue03/19/25 at 1315, For 1 dose, Induction. Instill for 2 hours. If possible, patient should lie prone for at least 15 minutes, then rotate positions (lie on right side, left side, abdomen, and back) every 15 minutes to maximize exposure.cefadroxil 500 mg oral capsule (2 sources)Cephalosporin AntibacterialStart: 02-11-2025 End: 55-71-3455doad 1 capsule by mouth in the morning, then take 1 capsule by mouth at bedtimecefaDROXil (DURICEF) 500 mg capsule Take 1 capsule (500 mg total) by mouth in the morning and 1 capsule (500 mg total) before bedtime. Do all this for 7 days. 14 capsule 02/11/2025 02/18/2025 Suspendedlosartan potassium 100 mg oral tablet (20 sources)Angiotensin 2 Receptor BlockerStart: 43-07-1801mflw 1 tablet by mouth in the morninglosartan (COZAAR) 100 mg tablet Indications: hypertension Take 1 tablet (100 mg total) by mouth in the morning. Indications: high blood pressure. 01/21/2025 SuspendedStart: 05-04-2024 End: 20-04-0675xxfq 1 tablet by mouth once dailyLosartan 100 mg tablet Discontinued 0 .ROUTE .COMPLEX 90 0 October 22, 2024 4:40pm January 21, 2025 8:26am TAKE 1 TABLET BY MOUTH DAILYStart: 02-06-2024 End: 68-36-7197cted 1 tablet by mouth once dailyLosartan 100 mg tablet Discontinued 100 MG PO Daily 90 0 February 06, 2024 1:33pm April 9:06amStart: 02-06-2024 End: 84-66-3899htpn 1 tablet by mouth twice dailyLosartan 100 mg tablet Discontinued 0 PO Daily 90 0 February 06, 2024 1:31pm February 06, 2024 1:34pm TAKE 1 TABLET BY MOUTH TWICE A DAY FOR 90 DAYS orally daily;Start: 10-27-2023 End: 44-96-0860esyu 1 tablet by mouth twice dailyLosartan 50 mg tablet Discontinued 0 .ROUTE .COMPLEX 180 0 October 27, 2023 8:43am February 06, 2024 1:32pm TAKE 1 TABLET BY MOUTH TWICE A DAY FOR 90 DAYSStart: 01-19-2023 End: 49-28-3498scyx 1 tablet by mouth twice dailyLosartan 50 mg Tablet Discontinued 50 MG PO Twice daily January 21, 2023 12:00am October 27, 2023 8:43amStart: 19-47-6211mxaw 1 tablet by mouth once dailylosartan 50 mg Tab 50 mg = 1 tab(s), Oral, Daily, Refills(s) 0 Start Date: 03/31/20 Status: Ordered meclizine hydrochloride 25 mg oral tablet (9 sources)AntiemeticStart: 04-17-2024 End: 36-07-4831iyqt 1 tablet by mouth twice daily as needed for dizziness Meclizine 25 mg tablet Discontinued 25 MG PO Twice daily as needed for dizziness 30 0 April 17, 2024 1:00am November 19, 2024 11:23amnitroglycerin 0.4 mg sublingual tablet (12 sources)Nitrate VasodilatorStart: 01-19-2023 End: 46-03-6323Dwgdmydchtykn 0.4 mg Tablet, Sublingual Discontinued 0.4 MG SUBLINGUAL Q5M as needed for Angina January 21, 2023 12:00am July 08, 2023 12:33pm do not exceed 3 doses per episodeStart: 68-82-8903Tjdypbfhqedgx 0.4 MG Sublingual Tablet Sublingual as directed Quantity: 25 Refills: 5 Ordered: Eleazar Murray MD Start : 19-Jan-2023 Active itg085 ml sodium chloride 9 mg/ml prefilled syringe (1 source)Start: 03-19-2025 End: mL, intravesical, Once, On Tue03/19/25 at 1315, For 1 dose, Following bladder instillation. 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, unspecified]Onset: 16-08-7579LtuvqkbLprygv of rectum and anus (20 sources)History of malignant neoplasm of rectum; Translations: [Personal history of other malignant neoplasm of rectum, rectosigmoid junction, and anus] Onset: 32-91-7422SldpjiemReotzvn kidney disease (6 sources)Chronic kidney disease stage 3B ; Translations: [Stage 3b chronic kidney disease]07-54-1995PackfwoCuxaoyd obstructive pulmonary disease and bronchiectasis (2 sources)Bronchitis, not specified as acute or chronicEpisodicConditions associated with dizziness or vertigo (10 sources)Vertigo; Translations: [Dizziness and giddiness]77-02-5000Ggsgqkpw Diabetes mellitus without complication (1 source)Impaired fasting glucoseEpisodicDisorders of lipid metabolism (20 sources)Pure hypercholesterolemia; Translations: [Pure hypercholesterolemia, unspecified]Onset: 16-10-2437PofyzdhUuontmlmh of teeth and jaw (2 sources)Jaw pain; Translations: [Jaw pain]Onset: 260218-60-3931Nsvzjirp Diverticulosis and diverticulitis (7 sources)Diverticula of intestine; Translations: [Diverticulosis of intestine, part unspecified, without perforation or abscess without bleeding]Onset: 13-63-5594XcutizeDupaatzpi hypertension (20 sources)Essential (primary) hypertension; Translations: [Essential hypertension]Onset: 57-91-4793EfzblxtYwliwopeunuwe symptoms and ill-defined conditions (20 sources)Urge incontinence of urine; Translations: [Urge incontinence]Onset: 742299-17-2530AhglickIzaeyccvyrrdj symptoms and ill-defined conditions (2 sources)Retention of urine, unspecified; Translations: [Retention of urine] Onset: 15-01-2492YksgequfUzncoerfccr (7 sources)Hemorrhoids; Translations: [Unspecified hemorrhoids]Onset: 09-03-2022 EpisodicImmunity disorders (2 sources)Hypergammaglobulinemia; Translations: [Hypergammaglobulinemia, unspecified]84-17-9851YpnzccxAkpyhcfjqvyxb and screening for infectious disease (1 source)Other and unspecified nonspecific immunological findings; Translations: [Elevated serum immunoglobulin free light chains]02-20-2025 EpisodicIntestinal infection (10 sources)Small bowel bacterial overgrowth -10-5407GatsgzplNgpvmp and vomiting (4 sources)Nausea; Translations: [Nausea]Onset: 35-66-8129FotanffvDhcpiirtrxjjq gastroenteritis (2 sources)Noninfectious enteritis; Translations: [Noninfective gastroenteritis and colitis, unspecified]Onset: 12-45-0534RfuektroMzsgwxoelit chest pain (16 sources)Atypical chest pain; Translations: [Other chest pain]Onset: 599527-06-8342AdiuhwutVmkmg aftercare (1 source)Postoperative visit; Translations: [Encounter for other specified surgical aftercare]50-05-4590HyrefmvnZtxib aftercare (1 source)Encounter for other specified surgical aftercare; Translations: [Encounter for other specified surgical aftercare]Onset: 09-93-3453QcclkyxmPvqcl and unspecified benign neoplasm (7 sources)Polyp of colon; Translations: [Polyp of colon]Onset: 09-03-2022 EpisodicOther and unspecified benign neoplasm (8 sources)History of polyp of colon; Translations: [Personal history of colonic polyps]Onset: 95-07-0876KxjiwkshZtext and unspecified benign neoplasm (1 source)Benign neoplastic disease; Translations: [Benign neoplasm, unspecified site]23-86-2131IfnheimpCednq diseases of bladder and urethra (6 sources)Hypertrophy of bladder; Translations: [Other specified disorders of bladder]60-25-9009PonpfdnAhyzp diseases of veins and lymphatics (7 sources)Vascular insufficiency; Translations: [Venous insufficiency (chronic) (peripheral)]30-75-5608DjkylwzaJquom female genital disorders (14 sources)Mass of uterine adnexa; Translations: [Other specified conditions associated with female genital organs and menstrual cycle]Onset: 02-14-2025 62-42-7645RdyhqhhdYomlm female genital disorders (1 source)Other specified conditions associated with female genital organs and menstrual cycle; Translations:[Other specified conditions associated with female genital organs and menstrual cycle]Onset: 22-80-6201DirwctdsWqzxr female genital disorders (1 source)Other noninflammatory disorders of ovary, fallopian tube and broad ligament; Translations: [Other noninflammatory disorders of ovary, fallopian tube and broad ligament]Onset: 18-19-9337IbcvvzjvIbome gastrointestinal disorders (3 sources)Intestinal malabsorption; Translations: [Other intestinal malabsorption]Onset: 32-42-3906XoonjebJzeaw gastrointestinal disorders (1 source)Disorder of intestine; Translations: [Other specified diseases of intestine]Onset: 95-16-5757VkfsmyaaTnpcd gastrointestinal disorders (9 sources)Urgent desire for stool; Translations: [Fecal urgency]Onset: 82-04-2282PnbluvreAgxxr gastrointestinal disorders (6 sources)Abdominal cyflmdit25-21-2151HmjguxrjJcjef gastrointestinal disorders (3 sources)Non-infective sbikqlov04-70-9936MkxrylkeBtqpe gastrointestinal disorders (10 sources)Dysphagia; Translations: [Dysphagia, unspecified]91-82-1073Muuffyhy Other gastrointestinal disorders (5 sources)Constipation; Translations: [Constipation, unspecified]12-27-2024 EpisodicOther gastrointestinal disorders (10 sources)Pelvic mass; Translations: [Intra-abdominal and pelvic swelling, mass and lump, unspecified site]56-05-0030IjfnqdslEifmx gastrointestinal disorders (13 sources)Ascites; Translations: [Other ascites]29-00-4640HdcdhitjWidrp gastrointestinal disorders (2 sources)Intra-abdominal and pelvic swelling, mass and lump, unspecified site; Translations: [Intra-abdominal and pelvic swelling, mass and lump, unspecified site]Onset: 92-86-6022UiokoctwEdbga gastrointestinal disorders (2 sources)Other ascites; Translations: [Other ascites]Onset: 21-89-7139Dlfzwmuw Other gastrointestinal disorders (1 source)Diarrhea, unspecified; Translations: [Diarrhea, unspecified]Onset: 02-74-3960DazifxvuLfmju gastrointestinal disorders (1 source)Constipation, unspecified; Translations: [Constipation, unspecified] Onset: 76-78-5764RytljloxAivwr liver diseases (20 sources)Cirrhosis of liver; Translations: [Unspecified cirrhosis of liver] 47-44-9889KarcqjeCtgfv liver diseases (3 sources)Unspecified cirrhosis of liver; Translations: [Unspecified cirrhosis of liver]Onset: 14-45-2617SbymxnyHbvpo liver diseases (2 sources)Primary biliary cholangitis; Translations: [Primary biliary cirrhosis]58-46-4906IgeyjmmVebdn liver diseases (2 sources)Decompensated cirrhosis of liver; Translations: [Hepatic failure, unspecified without coma]62-47-9620DqcjlfhqUrsnk lower respiratory disease (1 source)Dyspnea, unspecifiedEpisodicOther lower respiratory disease (2 sources)Dyspnea; Translations: [Other respiratory abnormalities]Onset: 630106-87-3402BrfawonlKuoof lower respiratory disease (1 source)Shortness of breathEpisodicOther nervous system disorders (19 sources)Impairment of balance; Translations: [Other abnormalities of gait and mobility]85-94-3352BqtnynsxOuuzz nervous system disorders (1 source)Other abnormalities of gait and mobilityEpisodicOther nervous system disorders (1 source)Other acute postprocedural pain; Translations: [Other acute postprocedural pain]Onset: 07-38-2734LffjihfgCuhzf nutritional; endocrine; and metabolic disorders (3 sources)Obesity; Translations: [Obesity, unspecified]Onset: 03-25-2023 86-88-8149PqzatucNvtth nutritional; endocrine; and metabolic disorders (2 sources)Obesity, unspecified; Translations: [Obesity, unspecified]Onset: 14-39-3425SzipuyjZmxku nutritional; endocrine; and metabolic disorders (2 sources)Body mass index (BMI) 35.0-35.9, adult; Translations: [Body mass index (BMI) 35.0-35.9, adult]Onset: 06-39-4055AfukhblBnjlh nutritional; endocrine; and metabolic disorders (10 sources)Body mass index 30+ - obesity; Translations: [Body mass index (BMI) 34.0-34.9, adult]75-27-0714BfyjlabEvvqv screening for suspected conditions (not mental disorders or infectious disease) (20 sources)Encounter for screening mammogram for malignant neoplasm of breast; Translations: [Patient encounter status]Onset: 42-92-6151RupzuzrvVfayl skin disorders (7 sources)Bilateral localized swelling of lower legs; Translations: [Localized swelling, mass and lump, lowerlimb, bilateral]91-47-0700JndrvbpcRhssjdm cyst (11 sources)Complex ovarian cyst; Translations: [Other ovarian cyst, unspecified side]Onset: 886131-33-2163EouvfpngMgquadeilr disorders (not diabetes) (18 sources)Mass of pancreas; Translations: [Other specified diseases of pancreas]Onset: 338048-32-7576YqoisdomBkzocult codes; unclassified (7 sources)Bilateral lower limb edema; Translations: [Localized edema]07-28-2023 EpisodicResidual codes; unclassified (1 source)Postoperative state; Translations: [Other specified postprocedural states]17-81-9436IcbawdylLexqwzbna and history of mental health and substance abuse codes (1 source)Ex-smoker; Translations: [Personal history of tobacco use]Episodic Comment on above:25 years;Spondylosis; intervertebral disc disorders; other back problems (7 sources)Neck pain; Translations: [Cervicalgia]98-64-8071BornslkoJaondqa disorders (20 sources)Other specified hypothyroidism; Translations: [Hypothyroidism, unspecified]Onset: 51-43-9784LrzqolqSttgushqstvv (5 sources)Autogenerated ProblemOnset: 024613-71-7639Ojeedwmuwxqu (1 source)Patient encounter nrzyok18-28-5892Yylhshmabdfj (1 source)Post-opOnset: 93-23-1960Kztnenxxmqsd (1 source)OVARIAN MASS BILATERAL, BLADDER CANCEROnset: 28-80-7661Ulgxvmwaxbob (1 source)New PatientOnset: 44-08-9672Isvdoaebkwqi (1 source)Encounter for follow-up surveillance of bladder cancer [Z08, Z85.51] Onset: 12-25-2024 Past or Other Problems Problem ClassificationProblemDateDocumented DateEpisodic/ChronicAbdominal pain (1 source)Abdominal pain; Translations: [Unspecified abdominal pain]Onset: 98-63-9444VzaqellhAtbren of bladder (14 sources)H/O: malignant neoplasm; Translations: [Personal history of malignant neoplasm of bladder]Onset: 825400-68-0345HihpuqpuZnztyfjn atherosclerosis and other heart disease (2 sources)Angina pectoris; Translations: [Other and unspecified angina pectoris]Onset: 03-25-2023 Resolved: 893390-81-8195ZbvizkiCvxq disorders (14 sources)Mood disordersOnset: 008866-76-7339Lhhxj aftercare (20 sources)History of bladder neoplasm; Translations: [Encounter for follow-up examination after completed treatment for malignant neoplasm]Onset: 11-19-2024 37-87-6399YicnizmwHnayb aftercare (1 source)Encounter for follow-up examination after completed treatment for malignant neoplasm; Translations:[Encounter for follow-up examination after completed treatment for malignant neoplasm]Onset: 17-54-0558TyfkbhzuVwijg gastrointestinal disorders (2 sources)Swollen abdomen; Translations: [Abdominal distension (gaseous)]Onset: 57-69-8421DeimafaeJhwpk gastrointestinal disorders (5 sources)Diarrhea; Translations: [Diarrhea, unspecified]Onset: 09-03-2022 EpisodicUnclassified (4 sources)Finding of sensation of iyiooan34-82-9425Etjyyklqsgxe (1 source)Onset: 735231-76-3884Bxxgsoyiehrf (1 source)Preprocedural examination emar94-97-9853Dzodzuwuahww (1 source)Elevated serum immunoglobulin free light -41-1210 Results Test NameValueInterpretationReference RangeFacilityBASIC METABOLIC PANELon 80-77-5189Hulhh gap [Moles/Vol]9 mmol/LNormal5-15[facility] Comment on above:Performed By: #### BMP #### [facility] ([facility]) [address] [place] [address] VIRCalcium [Mass/Vol]8.9 mg/dLNormal8.5-10.5PSelect Medical Specialty Hospital - Cleveland-FairhillComment on above:Performed By: #### BMP #### [facility] ([facility]) [address] [place] [address] VIRChloride [Moles/Vol]97 mmol/NYsc20-436XhxVvnnxgMidland Memorial HospitalComment on above:Performed By: #### BMP #### [facility] ([facility]) [address] [place] [address] VIRCO2 [Moles/Vol]26 mmol/CEwnuot05-56MkuUofbueSelect Medical Specialty Hospital - Cleveland-FairhillComment on above:Performed By: #### BMP #### [facility] ([facility]) [address] [place] [address] VIRCreatinine [Mass/Vol]0.98 mg/dLNormal0.40-1.00[facility] HospitalComment on above:Result Comment: METHOD TRACEABLE TO IDMS STANDARDPerformed By: #### BMP #### [facility] ([facility]) [address] [place] [address] VIRGFR/1.73 sq M.predicted among non-blacks MDRD (S/P/Bld) [Vol rate/Area]61 mL/min/{1.73_m2}Normal>=60ProMidland Memorial HospitalComment on above:Result Comment: Reported eGFR is based on the CKD-EPI 2020 equation that does not use a race coefficient.Performed By: #### BMP #### [facility] ([facility]) [address] [place] [address] VIRGlucose [Mass/Vol]120 mg/fXAksl92-60XzpOkhzqzMidland Memorial HospitalComment on above:Performed By: #### BMP #### [facility] ([facility]) [address] [place] [address] VIRPotassium [Moles/Vol]3.1 mmol/LLow3.5-5.0[facility] HospitalComment on above:Performed By: #### BMP #### [facility] ([facility]) [address] [place] [address] VIRSodium [Moles/Vol]132 mmol/UBbv828-296IimRtapbuMidland Memorial HospitalComment on above:Performed By: #### BMP #### [facility] ([facility]) [address] [place] [address] VIRUrea nitrogen [Mass/Vol]12 mg/dLNormal5-27[facility] HospitalComment on above:Performed By: #### BMP #### [facility] ([facility]) [address] [place] [address] VIRCBC WITH AUTO DIFFERENTIALon 40-52-5609ZVFYQZIUJ ABSOLUTE COUNT BY AUTOMATED COUNT0.0 X10^9/LNormal0.0-0.2PSelect Medical Specialty Hospital [facility] Comment on above:Result Comment: This is an appended report. These results have been appended to a previously preliminary verified report.Performed By: #### CBCA #### [facility] ([facility]) [address] [place] [address] VIRBASOPHILS RELATIVE PERCENT BY AUTOMATED COUNT0.4 %Normal [facility] HospitalComment on above:Result Comment: This is an appended report. These results have been appended to a previously preliminary verified report.Performed By: #### CBCA #### [facility] ([facility]) [address] [place] [address] VIRCELLAVISION ANISOCYTOSIS IN BLOOD BY LIGHT MICROSCOPY2+ [facility] on above:Result Comment: This is an appended report. These results have been appended to a previously preliminary verified report.Performed By: #### CBCA #### [facility] ([facility]) [address] [place] [address] VIRCELLAVISION DIFFERENTIAL TYPEAUTOMATED DIFFERENTIALNormal [facility] HospitalComforest [facility] medical center on above:Result Comment: This is an appended report. These results have been appended to a previously preliminary verified report.Performed By: #### CBCA #### [facility] ([facility]) [address] [place] [address] VIREosinophils (Bld) [#/Vol]0.1 10*3/uLNormal0.0-0.4[facility] HospitalComforest health medical center on above:Result Comment: This is an appended report. These results have been appended to a previously preliminary verified report. Performed By: #### CBCA #### [facility] ([facility]) [address] [place] [address] VIREOSINOPHILS RELATIVE PERCENT BY AUTOMATED COUNT0.9 %Normal [facility] HospitalComforest health medical center on above:Result Comment: This is an appended report. These results have been appended to a previously preliminary verified report.Performed By: #### CBCA #### [facility] ([facility]) [address] [place] [address] VIRErythrocyte distribution width (RBC) [Ratio]24.4 %High 11.5-15ProMidland Memorial HospitalComment on above:Performed By: #### CBCA #### [facility] ([facility]) [address] [place] [address] VIRHematocrit (Bld) [Volume fraction]35.4 %Qswxcc08-19MzyXoxnxcMidland Memorial HospitalComment on above:Performed By: #### CBCA #### [facility] ([facility]) [address] [place] [address] VIRHemoglobin (Bld) [Mass/Vol]11.6 g/dLLow11.7-15.5PSelect Medical Specialty Hospital - Cleveland-FairhillComment on above:Performed By: #### CBCA #### [facility] ([facility]) [address] [place] [address] VIRLymphocytes (Bld) [#/Vol]1.7 10*3/uLNormal1.0-3.5PSelect Medical Specialty Hospital - Cleveland-FairhillComment on above:Result Comment: This is an appended report. These results have been appended to a previously preliminary verified report. Performed By: #### CBCA #### [facility] ([facility]) [address] [place] [address] VIRLYMPHOCYTES RELATIVE PERCENT BY AUTOMATED COUNT29.2 %Normal [facility] HospitalComment on above:Result Comment: This is an appended report. These results have been appended to a previously preliminary verified report.Performed By: #### CBCA #### [facility] ([facility]) [address] [place] [address] VIRMCH (RBC) [Entitic mass]26.2 tfNfq80-77YxrDjjrhrMidland Memorial HospitalComment on above:Performed By: #### CBCA #### [facility] ([facility]) [address] [place] [address] VIRMCHC (RBC) [Mass/Vol]32.7 g/qSCvdscm37-16BkbXvsoxtMercy Health Defiance HospitalComment on above:Performed By: #### CBCA #### [facility] ([facility]) [address] [place] [address] VIRMCV (RBC) [Entitic vol]80 wUCbdghp08-329VhjMwgeiz [facility]ont HospitalComment on above:Performed By: #### CBCA #### [facility] ([facility]) [address] [place] [address] VIRMonocytes (Bld) [#/Vol]0.8 10*3/uLNormal0.0-0.9[facility] HospitalComforest [facility] medical center on above:Result Comment: This is an appended report. These results have been appended to a previously preliminary verified report. Performed By: #### CBCA #### [facility] ([facility]) [address] [place] [address] VIRMONOCYTES RELATIVE PERCENT BY AUTOMATED COUNT14.1 %Normal [facility] HospitalCom[facility] center on above:Result Comment: This is an appended report. These results have been appended to a previously preliminary verified report.Performed By: #### CBCA #### [facility] ([facility]) [address] [place] [address] VIRNEUTROPHILS ABSOLUTE COUNT BY AUTOMATED COUNT3.2 X10^9/L Normal1.5-6.6[facility] HospitalComforest health medical center on above:Result Comment: This is an appended report. These results have been appended to a previously preliminary verified report.Performed By: #### CBCA #### [facility] ([facility]) [address] [place] [address] VIRNEUTROPHILS RELATIVE PERCENT BY AUTOMATED COUNT55.4 %Normal [facility] HospitalCom[facility] medical center on above:Result Comment: This is an appended report. These results have been appended to a previously preliminary verified report.Performed By: #### CBCA #### [facility] ([facility]) [address] [place] [address] VIRPlatelet mean volume (Bld) [Entitic vol]8.6 fLNormal7-12 [facility] HospitalComforest [facility] medical center on above:Performed By: #### CBCA #### [facility] ([facility]) [address] [place] [address] VIRPlatelets (Bld) [#/Vol]212 10*3/lLUqzmeu922-611YnsDqtdbc [facility] HospitalComment on above:Performed By: #### CBCA #### [facility] ([facility]) [address] [place] [address] VIRRBC COUNT4.43 X10^12/LNormal3.8-5.2Pro[facility] Medical CenterComment on above:Performed By: #### CBCA #### [facility] ([facility]) [address] [place] [address] VIRWBC (Bld) [#/Vol]5.9 10*3/uLNormal4-11[facility] HospitalComment on above:Performed By: #### CBCA #### [facility] ([facility]) [address] [place] [address] VIRXR CHEST 2 VWSon 26-73-4974CD CHEST 2 VWSXR CHEST 2 VWS XR CHEST 2 VWS HISTORY: Bladder cancer treatment with BCG COMPARISON: Chest radiograph 03/21/2006, CT abdomen pelvis 01/29/2025 FINDINGS: PA and lateral upright films obtained. The cardiomediastinal silhouette is within normal limits. No pneumothorax. Small left-sided pleuraleffusion. Left lower lobe retrocardiac opacity possibly representing atelectasis versus pneumonia with appropriate setting. Degenerative changes of the visualized thoracic spine. IMPRESSION: * Small left-sided pleural effusion with left lower lobe opacity which could represent atelectasis versus pneumonia in the appropriate clinical setting. Approved by Ting Paredes MD on 03/13/2025 1:30 PM I, Joyce Mueller MD have personally reviewed the image(s) and agree with and/or edited the report Finalized by Joyce Mueller MD on 03/13/2025 3:11 PMNormalMercy Health Defiance HospitalAFP Tumor Marker, Serumon 10-99-5699GYU Tumor Marker, Serum3.3 ng/mL Normal0.0-9.2[facility] Physician GroupComment on above:Result Comment: [employer] Electrochemiluminescence Immunoassay (ECLIA) Values obtained with different assay methods or kits cannot be used interchangeably. Results cannot be interpreted as absolute evidence of the presence or absence of malignant disease. This test is not interpretable in females. Performed at: [address] [id number] [employer]: Cm Purcell PhD, Phone: [phone] PERFORMED BY: [place] [address] PATHOLOGIST SPECIAL EDUCATION PARA PROFESSIONAL ÁNGEL LUNA M.D.Performed By: #### CDT #### [address] #### CALPROTECT #### [facility] ,Alanine aminotransferase [Enzymatic activity/volume] in Serum or PlasmaOrdered By: Imad Asaad on 73-83-3794IMU [Catalytic activity/Vol]21 U/LNormal7-52 [facility] CenterComment on above:Performed By: #### CDT #### [facility] [address] [place] [address] [place] #### CALPROTECT #### [facility] ,Albumin [Mass/volume] in Serum or Plasma by Bromocresol green (BCG) dye binding methoOrdered By: Imad Asaad on 20-76-7310Ygrwbsz BCG dye [Mass/Vol]3.0 g/dLLow 3.5-5.7FMercy Health Springfield Regional Medical CenterAlkaline phosphatase [Enzymatic activity/volume] in Serum or PlasmaOrdered By: Imad Asaad on 78-39-0224BXX [Catalytic activity/Vol]273 U/WPjuo94-079TwmkuyojdUniversity Hospitals Tripoint Medical Center Comment on above:Performed By: #### CDT #### [facility] [address] [place] [address] [place] #### CALPROTECT #### [facility] ,Anisocytosis [Presence] in Blood by Light microscopyOrdered By: Imad Asaad on 65-99-6270Pnhdwirwlbay Ql (Bld)MarkedNormalUniversity Hospitals Tripoint Medical Center Comment on above:Performed By: #### CDT #### [address] [place] [address] [place] #### CALPROTECT #### [facility] ,Aspartate aminotransferase [Enzymatic activity/volume] in Serum or Plasma Ordered By: Imad Asaad on 11-97-0208JZV [Catalytic activity/Vol]71 U/OFpcg44-27 [facility] CenterComment on above:Performed By: #### CDT #### [facility] [address] [place] [address] [place] #### CALPROTECT #### [facility] ,Basic Metabolic Panelon 53-91-8992NZB/1.73 sq M.predicted MDRD (S/P/Bld) [Vol rate/Area]mL/min/{1.73_m2}NormalThe Carolinas [facility] Physician GroupComment on above: Performed By: #### CDT #### [facility] [address] [place] [address] #### CALPROTECT #### [facility] ,Basophils [#/volume] in Blood by Automated countOrdered By: Imad Asaad on 38-01-4707Uehrfqoud (Bld) [#/Vol]0.0 10*3/uLNormal0.0-0.2FMercy Health Springfield Regional Medical CenterComment on above:Performed By: #### CDT #### [facility] [address] [place] [address] #### CALPROTECT #### [facility] ,Basophils/100 leukocytes in Blood by Automated countOrdered By: Imad Asaad on 69-78-4630Igqhpwqwn/100 WBC (Bld)0.4 %Normal.[facility] Comment on above:Performed By: #### CDT #### [facility] [address] [place] [address] [place] #### CALPROTECT #### [facility] ,Bilirubin.direct [Mass/volume] in Serum or PlasmaOrdered By: Imad Asaad on 64-24-5275Ortuqacyb.direct [Mass/Vol]0.40 mg/dLHigh0.03-0.18FMercy Health Springfield Regional Medical CenterBilirubin.total [Mass/volume] in Serum or PlasmaOrdered By: Imad Asaad on 16-79-3277Kzebijtzy [Mass/Vol]1.3 mg/dLHigh0.3-1.0[facility] CenterComment on above:Samples from patients who have taken Naproxen have shown spurious elevation in Total Bilirubin levels. A metabolite of Naproxen, O-desmethylnaproxen, has been shown to interfere with the Jendrassik-Grof method for measuring Total Bilirubin.Result Comment: Samples from patients who have taken Naproxen have shown spurious elevation in Total Bilirubin levels. A metabolite of Naproxen, O-desmethylnaproxen, has been shown to interfere with the Jendrassik-Grof method for measuring Total Bilirubin.Performed By: #### CDT #### [address] #### CALPROTECT #### [facility] ,Calcium [Mass/volume] in Serum or PlasmaOrdered By: Imad Asaad on 03-01-2025 Calcium [Mass/Vol]7.9 mg/dLLow8.6-10.3FMercy Health Springfield Regional Medical CenterComment on above:Result Comment: PERFORMED BY: [place] [address] PATHOLOGIST SPECIAL EDUCATION PARA PROFESSIONAL ÁNGEL LUNA M.D.Performed By: #### CDT #### [facility] [address] [place] [address] [place] #### CALPROTECT #### [facility] ,Carbon dioxide, total [Moles/volume] in Serum or PlasmaOrdered By: Imad Asaad on 98-80-4187IZ0 [Moles/Vol]26.9 mmol/QUviyfv73.0-31.0[facility] CenterComment on above:Performed By: #### CDT #### [facility] [address] [place] [address] [place] #### CALPROTECT #### [facility] ,Chloride [Moles/volume] in Serum or PlasmaOrdered By: Imad Asaad on 03-01-2025 Chloride [Moles/Vol]102 mmol/EQslbhu48-396NfqrxqlyuUniversity Hospitals Tripoint [facility] Center Comment on above:Performed By: #### CDT #### [facility] [address] [place] [address] [place] #### CALPROTECT #### [facility] ,Creatinine [Mass/volume] in Serum or PlasmaOrdered By: Imad Asaad on 03-01-2025 Creatinine [Mass/Vol]0.96 mg/dLNormal0.60-1.20[facility] Comment on above:Performed By: #### CDT #### [facility] [address] [place] [address] [place] #### CALPROTECT #### [facility] ,Eosinophils [#/volume] in Blood by Automated countOrdered By: Imad Asaad on 50-93-3549Wrpydjueutm (Bld) [#/Vol]0.1 10*3/uLNormal0.0-0.45University Hospitals Tripoint Medical CenterComment on above:Performed By: #### CDT #### [facility] [address] [place] [address] [place] #### CALPROTECT #### [facility] ,Eosinophils/100 leukocytes in Blood by Automated countOrdered By: Imad Asaad on 42-15-4657Hyiltidivuz/100 WBC (Bld)1.4 %Normal.[facility] Hospitals Tripoint Medical CenterComment on above:Performed By: #### CDT #### [facility] [address] [place] [address] [place] #### CALPROTECT #### [facility] ,Erythrocyte distribution width [Ratio] by Automated countOrdered By: Imad Asaad on 59-99-5062Zjczwtdahjs distribution width (RBC) [Ratio]26.5 %High11.9-15.3 [facility] Tripoint Medical CenterComment on above:Performed By: #### CDT #### [facility] [address] [place] [address] [place] #### CALPROTECT #### [facility] ,Erythrocyte morphology finding [Identifier] in BloodOrdered By: Imad Asaad on 96-64-4264EXJ morphology finding Nom (Bld)N/[facility] Erythrocytes [#/volume] in Blood by Automated countOrdered By: Imad Asaad on 78-95-5325GJB (Bld) [#/Vol]4.26 10*6/uLNormal3.60-5.00University [facility]als Tripoint Medical CenterComment on above:Performed By: #### CDT #### [facility] [address] [place] [address] [place] #### CALPROTECT #### [facility] ,Glomerular filtration rate [Volume Rate/Area] in Serum, Plasma or Blood by CreatinineOrdered By: Imad Asaad on 86-30-7562Ikocbxvwtl filtration rate [Volume Rate/Area] in Serum, Plasma or Blood by Creatinine> 60.0 mL/MinUniversity Hospitals Tripoint Medical CenterGlucose [Mass/volume] in Serum or PlasmaOrdered By: Imad Asaad on 25-40-8329Wvakwhp [Mass/Vol]100 mg/wCAhcuny39-134BtwwylhwaUniversity Hospitals Tripoint Medical CenterComment on above:ADA recommended reference rangeRandom Glucose Reference Range is dependent on time and content of last meal. Glucose of more than 200 mg/dL in a nonstressed, ambulatory subject supports the diagnosisof Diabetes Mellitus.Result Comment: Random Glucose Reference Range is dependent on time and content of last meal. Glucose of more than 200 mg/dL in a nonstressed, ambulatory subject supports the diagnosis of Diabetes Mellitus. ADA recommended reference rangePerformed By: #### CDT #### [facility] [address] [place] [address] [place] #### CALPROTECT #### [facility] ,Hematocrit [Volume Fraction] of Blood by Automated countOrdered By: Imad Asaad on 59-81-6531Ysipyutxnp (Bld) [Volume fraction]33.7 %Low34.0-46.4FMercy Health Springfield Regional Medical CenterComment on above:Performed By: #### CDT #### [facility] [address] [place] [address] [place] #### CALPROTECT #### [facility] ,Hemoglobin [Mass/volume] in BloodOrdered By: Imad Asaad on 49-47-2279Igzvaxdvwc (Bld) [Mass/Vol]11.1 g/dLLow11.8-15.4FMercy Health Springfield Regional Medical CenterComment on above:Performed By: #### CDT #### [facility] [address] [place] [address] [place] #### CALPROTECT #### [facility] ,Hepatic Panelon 87-00-6479Ypktfxr [Mass/Vol]3.0 g/dLLow3.5-5.7The [facility] Physician GroupComment on above:Performed By: #### CDT #### [facility] [address] [place] [address] [place] #### CALPROTECT #### [facility] ,Bilirubin,Indirect0.9 mg/dLNormalThe [facility] Physician [facility] HospitalComment on above: Performed By: #### CDT #### [facility] [address] [place] [address] #### CALPROTECT #### [facility] ,Bilirubin.indirect [Mass/Vol]0.40 mg/dLHigh0.03-0.18[facility] Physician GroupComment on above:Performed By: #### CDT #### [facility] [address] [place] [address] [place] #### CALPROTECT #### [facility] ,INR in Platelet poor plasma by Coagulation assayOrdered By: Imad Asaad on 37-95-2261RHP Coag (PPP) [Relative time]1.6 {INR}WVUMedicine Barnesville HospitalComment on above:INR Therapeutic Range A) Pre- and Peroperative OAT started two weeks before surgery. NOT HIP SURGERY: 1.5 - 2.5 HIP SURGERY: 2 - 3B) Primary and secondary prevention of venous THROMBOSIS: 2 - 3C) Active venous thrombosis, pulmonary embolismand prevention of recurrent venous thrombosis: 2 - 3D) Prevention of arterial thromboembolismincluding patients with mechanical heart valves: 3 - 4.5Result Comment: INR Therapeutic Range A) Pre- and [...] with mechanical heart valves: 3 - 4.5 PERFORMED BY: [place] [address] PATHOLOGIST SPECIAL EDUCATION PARA PROFESSIONAL ÁNGEL LUNA M.D.Performed By: #### CDT #### [address] #### CALPROTECT #### [facility] ,Leukocytes [#/volume] corrected for nucleated erythrocytes in Blood by Automated counOrdered By: Imad Asaad on 96-68-4959QSS corrected for nucl RBC Auto (Bld) [#/Vol]6.1 10*3/uL3.8-11.[address] [place], [place] [address]Leukocytes [#/volume] in Blood by Automated countOrdered By: Imad Asaad on 41-78-3228VSK (Bld) [#/Vol]6.1 10*3/uLNormal3.8-11.6FMercy Health Springfield Regional Medical CenterComment on above:Performed By: #### CDT #### [place] [address] [place] #### CALPROTECT #### [facility] ,Lymphocytes [#/volume] in Blood by Automated countOrdered By: Imad Asaad on 25-32-5228Ekzpnbjkyim (Bld) [#/Vol]1.6 10*3/uLNormal1.00-4.8University [facility]als Tripoint Medical CenterComment on above:Performed By: #### CDT #### [facility] [address] [place] [address] [place] #### CALPROTECT #### [facility] ,Lymphocytes/100 leukocytes in Blood by Automated countOrdered By: Imad Asaad on 84-48-7414Azzpfwhtzzf/100 WBC (Bld)25.7 %Normal.[facility] Tripoint Medical CenterComment on above:Performed By: #### CDT #### [facility] [address] [place] [address] [place] #### CALPROTECT #### [facility] ,MCH [Entitic mass] by Automated countOrdered By: Imad Asaad on 70-91-9377ZBP (RBC) [Entitic mass]26.1 myOismes89.7-34.3FMercy Health Springfield Regional Medical Center Comment on above:Performed By: #### CDT #### [facility] [address] [place] [address] [place] #### CALPROTECT #### [facility] ,MCHC Auto (RBC) [Mass/Vol]Ordered By: Imad Asaad on 75-45-0727ZDWF (RBC) [Mass/Vol]32.9 g/dL32.0-35.0[facility] Medical CenterMCV [Entitic volume] by Automated countOrdered By: Imad Asaad on 71-05-9688EME (RBC) [Entitic vol]79.1 jTHco32-092MmjxvmmrjUniversity Hospitals Tripoint Medical CenterComment on above:Performed By: #### CDT #### [facility] [address] [place] [address] [place] #### CALPROTECT #### [facility] ,Microcytes LM Ql (Bld)Ordered By: Imad Asaad on 75-23-9501Ecvqarwmat Ql (Bld) SlightUniversity Hospitals Tripoint Medical CenterMonocytes [#/volume] in Blood by Automated countOrdered By: Imad Asaad on 38-51-1321Qzrcuzuew (Bld) [#/Vol]0.5 10*3/uLNormal0.0-0.8[facility] Medical CenterComment on above:Performed By: #### CDT #### [facility] [address] [place] [address] [place] #### CALPROTECT #### [facility] ,Monocytes/100 leukocytes in Blood by Automated countOrdered By: Imad Asaad on 35-03-2406Lxlmelghb/100 WBC (Bld)8.6 %Normal.[facility] Comment on above:Performed By: #### CDT #### [facility] [address] [place] [address] [place] #### CALPROTECT #### [facility] ,Neutrophils [#/volume] in Blood by Automated countOrdered By: Imad Asaad on 27-82-0753Kgjbhvjhnxn (Bld) [#/Vol]3.9 10*3/uLNormal1.8-7.7FMercy Health Springfield Regional Medical CenterComment on above:Performed By: #### CDT #### [facility] [address] [place] [address] [place] #### CALPROTECT #### [facility] ,Neutrophils/100 leukocytes in Blood by Automated countOrdered By: Imad Asaad on 35-28-1656Tdquyxdfpth/100 WBC (Bld)63.9 %Normal.[facility] Tripoint Medical CenterComment on above:Performed By: #### CDT #### [facility] [address] [place] [address] [place] #### CALPROTECT #### [facility] ,No Panel InformationOrdered By: Imad Asaad on 98-69-8197Fsaqxtlh Creatinine Clearance (ChemN/AFMercy Health Springfield Regional Medical CenterNucleated erythrocytes [Presence] in Blood by Automated countOrdered By: Imad Asaad on 03-01-2025 Nucleated RBC Auto Ql (Bld)0.2 /100{WBC}0-0.5FMercy Health Springfield Regional Medical Center Platelet adequacy [Presence] in Blood by Light microscopyOrdered By: Imad Asaad on 54-30-7406Zybzgxiis LM Ql (Bld)NormalNoOhio State Harding Hospital Platelet mean volume [Entitic volume] in Blood by Automated countOrdered By: Imad Asaad on 88-11-2203Tkjfebku mean volume (Bld) [Entitic vol]8.0 fLNormal 6.3-10.7FMercy Health Springfield Regional Medical CenterComment on above:Performed By: #### CDT #### [facility] [address] [place] [address] [place] #### CALPROTECT #### [facility] ,Platelet morphology finding [Identifier] in BloodOrdered By: Imad Asaad on 77-04-2644Qigmokip morphology finding Nom (Bld)Bellevue HospitalPlatelets [#/volume] in Blood by Automated countOrdered By: Imad Asaad on 52-15-8436Gbowucvib (Bld) [#/Vol]297 10*3/uIYtffjb551-073DzweotipaUniversity Hospitals Tripoint Medical CenterComment on above:Performed By: #### CDT #### [facility] [address] [place] [address] [place] #### CALPROTECT #### [facility] ,Poikilocytosis [Presence] in Blood by Light microscopyOrdered By: Imad Asaad on 18-23-5012Arodakblkvwfas LM Ql (Bld)[facility] Potassium [Moles/volume] in Serum or PlasmaOrdered By: Imad Asaad on 03-01-2025 Potassium [Moles/Vol]3.5 mmol/LNormal3.5-5.1FMercy Health Springfield Regional Medical Center Comment on above:Performed By: #### CDT #### [facility] [address] [place] [address] [place] #### CALPROTECT #### [facility] ,Protein [Mass/volume] in Serum or PlasmaOrdered By: Imad Asaad on 03-01-2025 Protein [Mass/Vol]8.7 g/dLNormal6.4-8.9[facility] Medical CenterComment on above:Performed By: #### CDT #### [address] [place] [address] [place] #### CALPROTECT #### [facility] ,Prothrombin time (PT)Ordered By: Dimple Caraballo on 82-20-6774WO Coag (PPP) [Time] 17.5 sHigh9.0-12.9[facility] Tri[facility] Medical CenterComment on above:A hematocrit value greater than 55% may lead to inaccurate results in coagulation testing. Patientshaving hematocrit values >55% require a special collection tube for coagulation studies. Please contact the laboratory at [phone] for redraw instructions.Result Comment: A hematocrit value greater than 55% may lead to inaccurate results in coagulation testing. Patients having hematocrit values >55% require a special collection tube for coagulation studies. Please contact the laboratory at [phone] for redraw instructions.Performed By: #### CDT #### [address] #### CALPROTECT #### [facility] ,Scan and CBCon 62-21-5471Jgtu Corpuscular HGB Conc32.9 g/pLGafqpe68.0-35.0[facility] Physician GroupComment on above:Performed By: #### CDT #### [facility] [address] [place] [address] #### CALPROTECT #### [facility] ,MicrocytosisSlightNormEd Fraser Memorial Hospital Physician [facility] General HospitalComment on above:Performed By: #### CDT #### [facility] [address] [place] [address] [place] #### CALPROTECT #### [facility] ,NRBC%0.2 /100{WBC}Normal0-0.5[facility] Physician [facility] General HospitalComment on above: Performed By: #### CDT #### [place] [address] [place] #### CALPROTECT #### [facility] ,Platelet EstimateNormalNormalNormUniversity Hospitals Lake West Medical Centere Firelands Physician GroupComment on above:Performed By: #### CDT #### [facility] [address] [place] [address] #### CALPROTECT #### [facility] ,Platelet MorphologyNormalHalifax Health Medical Center of Port Orange Physician GroupComment on above:Result Comment: PERFORMED BY: [place] [address] PATHOLOGIST SPECIAL EDUCATION PARA PROFESSIONAL ÁNGEL LUNA M.D.Performed By: #### CDT #### [address] #### CALPROTECT #### [facility] ,PoikilocytosisSCone Health Physician GroupComment on above: Performed By: #### CDT #### [facility] [address] [place] [address] #### CALPROTECT #### [facility] ,Target CellsSCone Health Physician GroupComment on above:Performed By: #### CDT #### [facility] [address] [place] [address] #### CALPROTECT #### [facility] ,White Blood Count6.1 [CFU]/mLNormal3.8-11.6[facility] Physician GroupComment on above:Performed By: #### CDT #### [facility] [address] [place] [address] [place] #### CALPROTECT #### [facility] ,Serum globulin measurement by calculation (mass/volume)Ordered By: Imomega Asaomega on 21-76-6000Omojslkp (S) [Mass/Vol]5.7 g/dLWVUMedicine Barnesville HospitalComment on above:Performed By: #### CDT #### [facility] [address] [place] [address] [place] #### CALPROTECT #### [facility] ,Serum or plasma albumin/globulin mass ratioOrdered By: Imad Asaad on 03-01-2025 Albumin/Globulin [Mass ratio]0.5 {ratio}NormalUniversity Hospitals Tripoint Medical Center Comment on above:Performed By: #### CDT #### [facility] [address] [place] [address] [place] #### CALPROTECT #### [facility] ,Serum or plasma anion gap determinationOrdered By: Imad Asaad on 03-01-2025 Anion gap [Moles/Vol]7.6 mmol/LNormal6.0-15.0[facility] Comment on above:Performed By: #### CDT #### [facility] [address] [place] [address] [place] #### CALPROTECT #### [facility] ,Serum or plasma non-glucuronidated bilirubin measurement (mass/volume)Ordered By: Imad Asaad on 91-42-5341Mdydjhgro.indirect [Mass/Vol]0.9 mg/dLMercy Health St. Rita's Medical Centerodium [Moles/volume] in Serum or PlasmaOrdered By: Imad Asaad on 32-20-0987Iyxlfp [Moles/Vol]133 mmol/JVls610-243HftcfeaagUniversity Hospitals Tripoint Medical CenterComment on above:Performed By: #### CDT #### [facility] [address] [place] [address] [place] #### CALPROTECT #### [facility] ,Target cells [Presence] in Blood by Light microscopyOrdered By: Imad Asaad on 13-32-2300Szgbib cells LM Ql (Bld)SlightUniversity Hospitals Tripoint Medical CenterUrea nitrogen [Mass/volume] in Serum or PlasmaOrdered By: Imad Asaad on 03-01-2025 Urea nitrogen [Mass/Vol]9 mg/dLNormal11-30[facility] Comment on above:Performed By: #### CDT #### [facility] [address] [place] [address] [place] #### CALPROTECT #### [facility] ,MOHINI SCREEN W/ REFLEXon 38-80-1392RDT SCREEN W/REFLEXPositiveAbnormalNegative [facility] HospitalComment on above:Order Comment: Testing performed using multiplex flow immunoassay. Eleven difference antigens associated with systemic autoimmunie diseases (dsDNA, Sm, Sm/ANNEALING FURNACE OPERATOR, ANNEALING FURNACE OPERATOR, Chromatin, SSA, SSB, Kendal-1, Sc170, Ribo P, Centromere B) are included in this sreening tests.Performed By: #### TSC #### [facility] ([facility]) [address] [place] [address] VIRANTI-CHROMATIN IGGon 05-01-1672LMQFXHAQV AB IGG>^8.0High<1.0 ProMKeenan Private HospitalComment on above:Performed By: #### TSC #### [facility] ([facility]) [address] [place] [address] VIRANTI-BEARDEN ANTIBODY IGGon 58-12-8973VUJU-BEARDEN AB IGG<^0.2 Normal<1.0ProSt. John Of God HospitalComment on above:Performed By: #### TSC #### [facility] ([facility]) [address] [place] [address] VIRBASIC METABOLIC PANELon 44-73-5463Zzasn gap [Moles/Vol]4 mmol/LLow5-15ProSt. John Of God HospitalComment on above:Performed By: #### CBCA #### [facility] ([facility]) [address] [place] [address] VIRCalcium [Mass/Vol]8.2 mg/dLLow8.5-10.5ProMedica Coulee City HospitalComment on above:Performed By: #### CBCA #### [facility] ([facility]) [address] [place] [address] VIRChloride [Moles/Vol]108 mmol/HHnwefu45-544FwwXgxryc [place] HospitalComment on above:Performed By: #### CBCA #### [facility] ([facility]) [address] [place] [address] VIRCO2 [Moles/Vol]24 mmol/ORcsdpc79-66NgbWxnpbf [facility] Comment on above:Performed By: #### CBCA #### [facility] ([facility]) [address] [place] [address] VIRCreatinine [Mass/Vol]1.11 mg/dLHigh0.40-1.00ProSt. John Of God HospitalComment on above:Result Comment: METHOD TRACEABLE TO IDMS STANDARD Performed By: #### CBCA #### [facility] ([facility]) [address] [place] [address] VIRGFR/1.73 sq M.predicted among non-blacks MDRD (S/P/Bld) [Vol rate/Area]53 mL/min/{1.73_m2}Low>=60ProSt. John Of God HospitalComment on above: Result Comment: Reported eGFR is based on the CKD-EPI 2020 equation that does not use a race coefficient.Performed By: #### CBCA #### [facility] ([facility]) [address] [place] [address] VIRGlucose [Mass/Vol]91 mg/yBFsxufw84-84UtnIxluue [place] HospitalComment on above:Performed By: #### CBCA #### [facility] ([facility]) [address] [place] [address] VIRPotassium [Moles/Vol]3.7 mmol/LNormal3.5-5.0ProBarberton Citizens Hospital HospitalComment on above:Performed By: #### CBCA #### [facility] ([facility]) [address] [place] [address] VIRSodium [Moles/Vol]136 mmol/RJujnac525-058ZyeMoaete [place] HospitalComment on above:Performed By: #### CBCA #### [facility] ([facility]) [address] [place] [address] VIRUrea nitrogen [Mass/Vol]24 mg/dLNormal5-27ProBarberton Citizens Hospital HospitalComment on above:Performed By: #### CBCA #### [facility] ([facility]) [address] [place] [address] VIRBEDSIDE GLUCOSEon 23-05-1266Kvjsaaq [Mass/Vol]148 mg/dLHigh 65-99ProSt. John Of God HospitalComforest health medical center on above:Performed By: #### TSC #### [facility] ([facility]) [address] [place] [address] VIRCBC WITH AUTO DIFFERENTIALon 76-13-4156CMKWFGWMA ABSOLUTE COUNT (10*3/UL) BY AUTOMATED COUNT0.0 10*3/uLNormal0.0-0.2ProMedica [facility] HospitalComforest health medical center on above:Result Comment: This is an appended report. These results have been appended to a previously preliminary verified report.Performed By: #### CBCA #### [facility] ([facility]) [address] [place] [address] VIRBASOPHILS RELATIVE PERCENT BY AUTOMATED COUNT0.3 %Normal [facility] HospitalComforest health medical center on above:Result Comment: This is an appended report. These results have been appended to a previously preliminary verified report.Performed By: #### CBCA #### [facility] ([facility]) [address] [place] [address] VIRCELLAVISION DIFFERENTIAL TYPEAUTOMATED DIFFERENTIALNormal [facility] HospitalComforest health medical center on above:Result Comment: This is an appended report. These results have been appended to a previously preliminary verified report.Performed By: #### CBCA #### [facility] ([facility]) [address] [place] [address] VIRCELLAVISION POLYCHROMASIA IN BLOOD BY LIGHT MICROSCOPY1+ NormalProSt. John Of God HospitalComforest health medical center on above:Result Comment: This is an appended report. These results have been appended to a previously preliminary verified report.Performed By: #### CBCA #### [facility] ([facility]) [address] [place] [address] VIRCELLAVISION RBC FRAGMENTS1+NormalJoint Township District Memorial Hospital Comment on above:Result Comment: This is an appended report. These results have been appended to a previously preliminary verified report.Performed By: #### CBCA #### [facility] ([facility]) [address] [place] [address] VIREosinophils (Bld) [#/Vol]0.1 10*3/uLNormal0.0-0.4ProSt. John Of God HospitalComment on above:Result Comment: This is an appended report. These results have been appended to a previously preliminary verified report. Performed By: #### CBCA #### [facility] ([facility]) [address] [place] [address] VIREOSINOPHILS RELATIVE PERCENT BY AUTOMATED COUNT1.6 %Normal ProMedicFulton County Health CenterComment on above:Result Comment: This is an appended report. These results have been appended to a previously preliminary verified report.Performed By: #### CBCA #### [facility] ([facility]) [address] [place] [address] VIRErythrocyte distribution width (RBC) [Ratio]21.6 %High 11.5-15ProBarberton Citizens Hospital HospitalComment on above:Performed By: #### CBCA #### [facility] ([facility]) [address] [place] [address] VIRHematocrit (Bld) [Volume fraction]28.2 %Ewt56-09EwzZsjfye [place] HospitalComment on above:Performed By: #### CBCA #### [facility] ([facility]) [address] [place] [address] VIRHemoglobin (Bld) [Mass/Vol]9.2 g/dLLow11.7-15.5Pro[facility]ica [facility] HospitalComment on above:Performed By: #### CBCA #### [facility] ([facility]) [address] [place] [address] VIRLYMPHOCYTES ABSOLUTE COUNT (10*3/UL) BY AUTOMATED COUNT1.0 10*3/uLNormal1.0-3.5ProMedChildren's Hospital for RehabilitationComment on above:Result Comment: This is an appended report. These results have been appended to a previously preliminary verified report.Performed By: #### CBCA #### [facility] ([facility]) [address] [place] [address] VIRLYMPHOCYTES RELATIVE PERCENT BY AUTOMATED COUNT19.3 %Normal [facility] HospitalComment on above:Result Comment: This is an appended report. These results have been appended to a previously preliminary verified report.Performed By: #### CBCA #### [facility] ([facility]) [address] [place] [address] VIRMCH (RBC) [Entitic mass]25.5 qgIkl82-71VevRkhtmz [place] HospitalComment on above:Performed By: #### CBCA #### [facility] ([facility]) [address] [place] [address] VIRMCHC (RBC) [Mass/Vol]32.8 g/oNOdgwwh90-60KhiHwdcjg [facility] HospitalComment on above:Performed By: #### CBCA #### [facility] ([facility]) [address] [place] [address] VIRMCV (RBC) [Entitic vol]78 tXOgy04-787UnxPqgrbb [facility] HospitalComment on above:Performed By: #### CBCA #### [facility] ([facility]) [address] [place] [address] VIRMONOCYTES ABSOLUTE COUNT (10*3/UL) BY AUTOMATED COUNT0.5 10*3/uLNormal0.0-0.9ProSt. John Of God HospitalComforest health medical center on above:Result Comment: This is an appended report. These results have been appended to a previously preliminary verified report.Performed By: #### CBCA #### [facility] ([facility]) [address] [place] [address] VIRMONOCYTES RELATIVE PERCENT BY AUTOMATED COUNT9.8 %Normal [facility] HospitalComment on above:Result Comment: This is an appended report. These results have been appended to a previously preliminary verified report.Performed By: #### CBCA #### [facility] ([facility]) [address] [place] [address] VIRNEUTROPHILS ABSOLUTE COUNT BY AUTOMATED COUNT3.6 10*3/uL Normal1.5-6.6[facility] HospitalComment on above:Result Comment: This is an appended report. These results have been appended to a previously preliminary verified report.Performed By: #### CBCA #### [facility] ([facility]) [address] [place] [address] VIRNEUTROPHILS RELATIVE PERCENT BY AUTOMATED COUNT69.0 %Normal [facility] HospitalComment on above:Result Comment: This is an appended report. These results have been appended to a previously preliminary verified report.Performed By: #### CBCA #### [facility] ([facility]) [address] [place] [address] VIRPlatelet mean volume (Bld) [Entitic vol]8.4 fLNormal7-12 [facility] HospitalComment on above:Performed By: #### CBCA #### [facility] ([facility]) [address] [place] [address] VIRPlatelets (Bld) [#/Vol]183 10*3/dBNpmptr281-902GtbTwdqqd [facility] HospitalComment on above:Performed By: #### CBCA #### [facility] ([facility]) [address] [place] [address] VIRRBC COUNT3.62 X10E12/LLow3.8-5.2PMart[facility] Comment on above:Performed By: #### CBCA #### [facility] ([facility]) [address] [place] [address] VIRWBC (Bld) [#/Vol]5.2 10*3/uLNormal4-11[facility] HospitalComment on above:Performed By: #### CBCA #### [facility] ([facility]) [address] [place] [address] VIRDOUBLE STRANDED DNA ABon 81-48-2133NFYGMK STRANDED DNA14 IU/MLHigh<5[facility] HospitalComment on above:Order Comment: Interpretation< 5 Negative5 - 9 Indeterminate> 9 PositivePerformed By: #### TSC #### [facility] ([facility]) [address] [place] [address] VIRFERRITINon 66-43-7952Xpbvtxqd [Mass/Vol]253 ng/mLNormal 11-307[facility] HospitalComment on above:Performed By: #### TSC #### [facility] ([facility]) [address] [place] [address] VIRFOLATEon 08-42-0251HJUUZ ACID22.5 ng/mLNormal>5.8ProBar[facility]ton Citizens Hospital HospitalComment on above:Performed By: #### TSC #### [facility] ([facility]) [address] [place] [address] VIRIRON AND TIBCon 69-96-9536Oqah [Mass/Vol]43 ug/bJLfn94-449 [facility] HospitalComment on above:Performed By: #### TSC #### [facility] ([facility]) [address] [place] [address] VIRIRON YBZGWYN211 ug/qQUnqmcq340-193WiwIsqcet [facility] Comment on above:Performed By: #### TSC #### [facility] ([facility]) [address] [place] [address] VIRIRON KDNIJCUNXJ08 % ILXQTSRCSHYuhqke74-52GipExfbdb [facility] HospitalComment on above:Performed By: #### TSC #### [facility] ([facility]) [address] [place] [address] VIRTransferrin [Mass/Vol]191 mg/rREaazdw072-373LzoRrocmg [facility] HospitalComment on above:Performed By: #### TSC #### [facility] ([facility]) [address] [place] [address] VIRMAGNESIUMon 73-26-0492Fqkmvbdeo [Mass/Vol]1.5 mg/dLLow 1.8-2.6[facility] HospitalComment on above:Performed By: #### CBCA #### [facility] ([facility]) [address] [place] [address] VIRPHOSPHORUSon 83-93-0065Lilzptwpd [Mass/Vol]2.3 mg/dLLow 2.4-4.9[facility] HospitalComment on above:Performed By: #### CBCA #### [facility] ([facility]) [address] [place] [address] VIRRNP ANITBODY IGGon 53-50-7110EFL ANTIBODY IGG1.7 AIHigh<1.0 [facility] HospitalComment on above:Performed By: #### TSC #### [facility] ([facility]) [address] [place] [address] VIRSMITH/ANNEALING FURNACE OPERATOR AB IGGon 22-97-7980NGSWU/ANNEALING FURNACE OPERATOR AB IGG<^0.2Normal<1.0 [facility] HospitalComment on above:Performed By: #### TSC #### [facility] ([facility]) [address] [place] [address] VIRVITAMIN B12on 04-16-4801Wctdwypsu (Vitamin B12) [Mass/Vol] 384 pg/qJSczgie070-373JbnFifsmm [facility] HospitalComment on above:Performed By: #### ABORHR #### [facility] ([facility]) [address] [place] [address] VIRBEDSIDE GLUCOSEon 31-73-5082Fnhizyb [Mass/Vol]202 mg/dLHigh 65-99[facility] HospitalComment on above:Performed By: #### CBCA #### [facility] ([facility]) [address] [place] [address] VIRGlucose [Mass/Vol]131 mg/fLKfit97-83UgyXruhmwSt. John Of God HospitalComforest health medical center on above:Performed By: #### CBCA #### [facility] ([facility]) [address] [place] [address] VIRCBC WITH AUTO DIFFERENTIALon 58-93-5399ZOAWYBDNF ABSOLUTE COUNT (10*3/UL) BY AUTOMATED COUNT0.0 10*3/uLNormal0.0-0.2[facility] HospitalComforest health medical center on above:Result Comment: This is an appended report. These results have been appended to a previously preliminary verified report.Performed By: #### CBCA #### [facility] ([facility]) [address] [place] [address] VIRBASOPHILS RELATIVE PERCENT BY AUTOMATED COUNT0.1 %Normal [facility] HospitalComforest [facility] medical center on above:Result Comment: This is an appended report. These results have been appended to a previously preliminary verified report.Performed By: #### CBCA #### [facility] ([facility]) [address] [place] [address] VIRCELLAVISION DIFFERENTIAL TYPEAUTOMATED DIFFERENTIALNormal [facility] HospitalComforest [facility] medical center on above:Result Comment: This is an appended report. These results have been appended to a previously preliminary verified report.Performed By: #### CBCA #### [facility] ([facility]) [address] [place] [address] VIRCELLAVISION RBC MORPHOLOGYNormalNormalProSt. John Of God HospitalComforest health medical center on above:Result Comment: This is an appended report. These results have been appended to a previously preliminary verified report.Performed By: #### CBCA #### [facility] ([facility]) [address] [place] [address] VIREosinophils (Bld) [#/Vol]0.1 10*3/uLNormal0.0-0.4Pro[facility] HospitalComment on above:Result Comment: This is an appended report. These results have been appended to a previously preliminary verified report. Performed By: #### CBCA #### [facility] ([facility]) [address] [place] [address] VIREOSINOPHILS RELATIVE PERCENT BY AUTOMATED COUNT1.0 %Normal [facility] HospitalComment on above:Result Comment: This is an appended report. These results have been appended to a previously preliminary verified report.Performed By: #### CBCA #### [facility] ([facility]) [address] [place] [address] VIRErythrocyte distribution width (RBC) [Ratio]21.6 %High 11.5-15[facility] HospitalComment on above:Performed By: #### CBCA #### [facility] ([facility]) [address] [place] [address] VIRHematocrit (Bld) [Volume fraction]26.6 %Haj38-67QhkBrvryl [place] HospitalComment on above:Performed By: #### CBCA #### [facility] ([facility]) [address] [place] [address] VIRHemoglobin (Bld) [Mass/Vol]8.7 g/dLLow11.7-15.5PPeoples Hospital HospitalComment on above:Performed By: #### CBCA #### [facility] ([facility]) [address] [place] [address] VIRLYMPHOCYTES ABSOLUTE COUNT (10*3/UL) BY AUTOMATED COUNT0.8 10*3/uLLow1.0-3.5PPeoples Hospital HospitalComment on above:Result Comment: This is an appended report. These results have been appended to a previously prelimi nary verified report.Performed By: #### CBCA #### [facility] ([facility]) [address] [place] [address] VIRLYMPHOCYTES RELATIVE PERCENT BY AUTOMATED COUNT14.9 %Normal [facility]MMercy [facility] HospitalComment on above:Result Comment: This is an appended report. These results have been appended to a previously preliminary verified report.Performed By: #### CBCA #### [facility] ([facility]) [address] [place] [address] VIRMCH (RBC) [Entitic mass]25.3 moDgv41-62SyqRkeebn [place] HospitalComment on above:Performed By: #### CBCA #### [facility] ([facility]) [address] [place] [address] VIRMCHC (RBC) [Mass/Vol]32.6 g/dSNqtawm46-81ImgBerbac [facility] HospitalComment on above:Performed By: #### CBCA #### [facility] ([facility]) [address] [place] [address] VIRMCV (RBC) [Entitic vol]78 wPIgm42-476AgcIccwzp [facility] HospitalComment on above:Performed By: #### CBCA #### [facility] ([facility]) [address] [place] [address] VIRMONOCYTES ABSOLUTE COUNT (10*3/UL) BY AUTOMATED COUNT0.5 10*3/uLNormal0.0-0.9[facility] HospitalComment on above:Result Comment: This is an appended report. These results have been appended to a previously preliminary verified report.Performed By: #### CBCA #### [facility] ([facility]) [address] [place] [address] VIRMONOCYTES RELATIVE PERCENT BY AUTOMATED COUNT9.3 %Normal [facility] HospitalComforest [facility] medical center on above:Result Comment: This is an appended report. These results have been appended to a previously preliminary verified report.Performed By: #### CBCA #### [facility] ([facility]) [address] [place] [address] VIRNEUTROPHILS ABSOLUTE COUNT BY AUTOMATED COUNT4.0 10*3/uL Normal1.5-6.6[facility] HospitalComment on above:Result Comment: This is an appended report. These results have been appended to a previously preliminary verified report.Performed By: #### CBCA #### [facility] ([facility]) [address] [place] [address] VIRNEUTROPHILS RELATIVE PERCENT BY AUTOMATED COUNT74.7 %Normal [facility] HospitalComment on above:Result Comment: This is an appended report. These results have been appended to a previously preliminary verified report.Performed By: #### CBCA #### [facility] ([facility]) [address] [place] [address] VIRPlatelet mean volume (Bld) [Entitic vol]8.5 fLNormal7-12 ProMKeenan Private HospitalComment on above:Performed By: #### CBCA #### [facility] ([facility]) [address] [place] [address] VIRPlatelets (Bld) [#/Vol]188 10*3/bFZwjhhh678-446GvpSaykze [place] HospitalComment on above:Performed By: #### CBCA #### [facility] ([facility]) [address] [place] [address] VIRRBC COUNT3.42 X10E12/LLow3.8-5.2PPeoples Hospital Hospital Comment on above:Performed By: #### CBCA #### [facility] ([facility]) [address] [place] [address] VIRWBC (Bld) [#/Vol]5.4 10*3/uLNormal4-11[facility] HospitalComment on above:Performed By: #### CBCA #### [facility] ([facility]) [address] [place] [address] VIRCOMPREHENSIVE METABOLIC PANELon 72-36-2376Pjjwzop [Mass/Vol] 2.7 g/dLLow3.2-5.3PPeoples Hospital HospitalComment on above:Performed By: #### CBCA #### [facility] ([facility]) [address] [place] [address] VIRALP [Catalytic activity/Vol]196 U/TCkda45-982LasCswnxf [facility] HospitalComment on above:Performed By: #### CBCA #### [facility] ([facility]) [address] [place] [address] VIRALT [Catalytic activity/Vol]15 U/LNormal<=31ProMedZanes[facility] City Hospital HospitalComment on above:Performed By: #### CBCA #### [facility] ([facility]) [address] [place] [address] VIRAnion gap [Moles/Vol]6 mmol/LNormal5-15[facility] HospitalComment on above:Performed By: #### CBCA #### [facility] ([facility]) [address] [place] [address] VIRAST [Catalytic activity/Vol]50 U/LHigh<=41[facility] HospitalComment on above:Performed By: #### CBCA #### [facility] ([facility]) [address] [place] [address] VIRBilirubin [Mass/Vol]0.7 mg/dLNormal0.3-1.2ProMedZanesville City Hospital HospitalComment on above:Performed By: #### CBCA #### [facility] ([facility]) [address] [place] [address] VIRCalcium [Mass/Vol]8.0 mg/dLLow8.5-10.5ProMedZanesville City Hospital HospitalComment on above:Performed By: #### CBCA #### [facility] ([facility]) [address] [place] [address] VIRChloride [Moles/Vol]107 mmol/UGmkaou62-744NwrZzyhpg [facility] HospitalComment on above:Performed By: #### CBCA #### [facility] ([facility]) [address] [place] [address] VIRCO2 [Moles/Vol]19 mmol/JVyw28-37OhaRihztzMartin Memorial Hospital Comment on above:Performed By: #### CBCA #### [facility] ([facility]) [address] [place] [address] VIRCreatinine [Mass/Vol]1.74 mg/dLHigh0.40-1.00ProSt. John Of God HospitalComment on above:Result Comment: METHOD TRACEABLE TO IDMS STANDARD Performed By: #### CBCA #### [facility] ([facility]) [address] [place] [address] VIRGFR/1.73 sq M.predicted among non-blacks MDRD (S/P/Bld) [Vol rate/Area]31 mL/min/{1.73_m2}Low>=60ProSt. John Of God HospitalComment on above: Result Comment: Reported eGFR is based on the CKD-EPI 2020 equation that does not use a race coefficient.Performed By: #### CBCA #### [facility] ([facility]) [address] [place] [address] VIRGlucose [Mass/Vol]125 mg/hWMdsy43-11BuxBspfqiSt. John Of God HospitalComment on above:Performed By: #### CBCA #### [facility] ([facility]) [address] [place] [address] VIRPotassium [Moles/Vol]3.7 mmol/LNormal3.5-5.0ProSt. John Of God HospitalComment on above:Performed By: #### CBCA #### [facility] ([facility]) [address] [place] [address] VIRProtein [Mass/Vol]8.0 g/dLNormal6.0-8.0ProSt. John Of God HospitalComment on above:Performed By: #### CBCA #### [facility] ([facility]) [address] [place] [address] VIRSodium [Moles/Vol]132 mmol/XRda396-442LmcOzpfzr [facility] HospitalComment on above:Performed By: #### CBCA #### [facility] ([facility]) [address] [place] [address] VIRUrea nitrogen [Mass/Vol]32 mg/dLHigh5-27ProBar[facility] HospitalComment on above:Performed By: #### CBCA #### [facility] ([facility]) [address] [place] [address] VIRMAGNESIUMon 14-92-0346Qamwogdep [Mass/Vol]1.8 mg/dLNormal 1.8-2.6ProVan Wert County Hospitalca [facility] HospitalComment on above:Performed By: #### CBCA #### [facility] ([facility]) [address] [place] [address] VIRPHOSPHORUSon 31-97-5278Jaexfrvtz [Mass/Vol]3.2 mg/dLNormal 2.4-4.9Pro[facility] HospitalComment on above:Performed By: #### CBCA #### [facility] ([facility]) [address] [place] [address] VIRCBC WITH AUTO DIFFERENTIALon 59-65-7604SOIGSHBIKAC DIFFERENTIAL TYPEMANUAL DIFFERENTIALNormalProSt. John Of God HospitalComment on above:Result Comment: This is an appended report. These results have been appended to a previously preliminary verified report.Performed By: #### LDH #### [facility] ([facility]) [address] [place] [address] VIRCELLAVISION EOSINOPHILS ABSOLUTE COUNT (10*3/UL) BY MANUAL COUNT0.1 10*3/uLNormal0.0-0.4ProSt. John Of God HospitalComment on above:Result Comment: This is an appended report. These results have been appended to a previously preliminary verified report.Performed By: #### LDH #### [facility] ([facility]) [address] [place] [address] VIRCELLAVISION EOSINOPHILS PERCENT BY MANUAL COUNT1 %Normal [facility] HospitalComment on above:Result Comment: This is an appended report. These results have been appended to a previously preliminary verified report.Performed By: #### LDH #### [facility] ([facility]) [address] [place] [address] VIRCELLAVISION LYMPHOCYTES ABSOLUTE COUNT (10*3/UL) BY MANUAL COUNT1.2 10*3/uLNormal1.0-3.5[facility] HospitalComment on above:Result Comment: This is an appended report. These results have been appended to a previously preliminary verified report.Performed By: #### LDH #### [facility] ([facility]) [address] [place] [address] VIRCELLAVISION LYMPHOCYTES RELATIVE PERCENT BY MANUAL COUNT11 % NormalProMedica [facility] City HospitalComment on above:Result Comment: This is an appended report. These results have been appended to a previously preliminary verified report.Performed By: #### LDH #### [facility] ([facility]) [address] [place] [address] VIRCELLAVISION MONOCYTES ABSOLUTE COUNT (10*3/UL) IN BLOOD BY MANUAL COUNT0.6 10*3/uLNormal0.0-0.9[facility] HospitalComment on above: Result Comment: This is an appended report. These results have been appended to a previously preliminary verified report.Performed By: #### LDH #### [facility] ([facility]) [address] [place] [address] VIRCELLAVISION MONOCYTES RELATIVE PERCENT BY MANUAL COUNT6 % NormalProVan Wert County Hospitalca [facility] HospitalComment on above:Result Comment: This is an appended report. These results have been appended to a previously preliminary verified report.Performed By: #### LDH #### [facility] ([facility]) [address] [place] [address] VIRCELLAVISION NEUTROPHILS ABSOLUTE COUNT BY MANUAL COUNT8.7 10*3/uLHigh1.5-6.6Pro[facility] HospitalComment on above:Result Comment: This is an appended report. These results have been appended to a previously prelimi nary verified report.Performed By: #### LDH #### [facility] ([facility]) [address] [place] [address] VIRCELLAVISION NEUTROPHILS RELATIVE PERCENT BY MANUAL COUNT82 % NormalProVan Wert County Hospitalca [facility] HospitalComment on above:Result Comment: This is an appended report. These results have been appended to a previously preliminary verified report.Performed By: #### LDH #### [facility] ([facility]) [address] [place] [address] VIRCELLAVISION POLYCHROMASIA IN BLOOD BY LIGHT MICROSCOPY1+ NormalProVan Wert County Hospitalca [facility] HospitalComment on above:Result Comment: This is an appended report. These results have been appended to a previously preliminary verified report.Performed By: #### LDH #### [facility] ([facility]) [address] [place] [address] VIRErythrocyte distribution width (RBC) [Ratio]20.2 %High 11.5-15Pro[facility] HospitalComment on above:Performed By: #### LDH #### [facility] ([facility]) [address] [place] [address] VIRHematocrit (Bld) [Volume fraction]25.2 %Ujn28-77UqjHlboyg [facility] HospitalComment on above:Performed By: #### LDH #### [facility] ([facility]) [address] [place] [address] VIRHemoglobin (Bld) [Mass/Vol]8.2 g/dLLow11.7-15.5Pro[facility] HospitalComment on above:Performed By: #### LDH #### [facility] ([facility]) [address] [place] [address] VIRMCH (RBC) [Entitic mass]25.7 ucUoz95-64XilRnyefe [facility] HospitalComment on above:Performed By: #### LDH #### [facility] ([facility]) [address] [place] [address] VIRMCHC (RBC) [Mass/Vol]32.6 [id number] [facility] HospitalComment on above:Performed By: #### LDH #### [facility] ([facility]) [address] [place] [address] VIRMCV (RBC) [Entitic vol]79 [id number] [facility] HospitalComment on above:Performed By: #### LDH #### [facility] ([facility]) [address] [place] [address] VIRPlatelet mean volume (Bld) [Entitic vol]9.0 fLNormal7-12 [facility] HospitalComment on above:Performed By: #### LDH #### [facility] ([facility]) [address] [place] [address] VIRPlatelets (Bld) [#/Vol]182 10*3/uGMssuxg680-656FveDpnchp [facility] City HospitalComment on above:Performed By: #### LDH #### [facility] ([facility]) [address] [place] [address] VIRRBC COUNT3.21 X10E12/LLow3.8-5.2[facility] Comment on above:Performed By: #### LDH #### [facility] ([facility]) [address] [place] [address] VIRWBC (Bld) [#/Vol]10.6 10*3/uLNormal4-11[facility] HospitalComment on above:Performed By: #### LDH #### [facility] ([facility]) [address] [place] [address] VIRCOMPREHENSIVE METABOLIC PANELon 35-96-0797Dgcmbgg [Mass/Vol] 2.7 g/dLLow3.2-5.3[facility] HospitalComment on above:Performed By: #### LDH #### [facility] ([facility]) [address] [place] [address] VIRALP [Catalytic activity/Vol]172 U/PZzpk26-651UtdRfwdsy [facility]ell HospitalComment on above:Performed By: #### LDH #### [facility] ([facility]) [address] [place] [address] VIRALT [Catalytic activity/Vol]12 U/LNormal<=31[facility]ell HospitalComment on above:Performed By: #### LDH #### [facility] ([facility]) [address] [place] [address] VIRAnion gap [Moles/Vol]6 mmol/LNormal5-15[facility] HospitalComment on above:Performed By: #### LDH #### [facility] ([facility]) [address] [place] [address] VIRAST [Catalytic activity/Vol]58 U/LHigh<=41[facility] HospitalComment on above:Performed By: #### LDH #### [facility] ([facility]) [address] [place] [address] VIRBilirubin [Mass/Vol]0.7 mg/dLNormal0.3-1.2ProMedZanesville City Hospital HospitalComment on above:Performed By: #### LDH #### [facility] ([facility]) [address] [place] [address] VIRCalcium [Mass/Vol]8.1 mg/dLLow8.5-10.5ProMedZanesville City Hospital HospitalComment on above:Performed By: #### LDH #### [facility] ([facility]) [address] [place] [address] VIRChloride [Moles/Vol]103 mmol/AWkmagb84-424OkeQbxpne Odell HospitalComment on above:Performed By: #### LDH #### [facility] ([facility]) [address] [place] [address] VIRCO2 [Moles/Vol]19 mmol/KKnf37-25OghGsmpqzChildren's Hospital for Rehabilitation Comment on above:Performed By: #### LDH #### [facility] ([facility]) [address] [place] [address] VIRCreatinine [Mass/Vol]2.53 mg/dLHigh0.40-1.00ProBar[facility] HospitalComment on above:Result Comment: METHOD TRACEABLE TO IDMS STANDARD Performed By: #### LDH #### [facility] ([facility]) [address] [place] [address] VIRGFR/1.73 sq M.predicted among non-blacks MDRD (S/P/Bld) [Vol rate/Area]20 mL/min/{1.73_m2}Low>=60ProSt. John Of God HospitalComment on above: Result Comment: Reported eGFR is based on the CKD-EPI 2020 equation that does not use a race coefficient.Performed By: #### LDH #### [facility] ([facility]) [address] [place] [address] VIRGlucose [Mass/Vol]128 mg/hIVomp61-24OpqDqpdyq [place] HospitalComment on above:Performed By: #### LDH #### [facility] ([facility]) [address] [place] [address] VIRPotassium [Moles/Vol]4.4 mmol/LNormal3.5-5.0ProSt. John Of God HospitalComment on above:Performed By: #### LDH #### [facility] ([facility]) [address] [place] [address] VIRProtein [Mass/Vol]8.3 g/dLHigh6.0-8.0ProSt. John Of God HospitalComment on above:Performed By: #### LDH #### [facility] ([facility]) [address] [place] [address] VIRSodium [Moles/Vol]128 mmol/JAga923-965OkySqtxhp [place] HospitalComment on above:Performed By: #### LDH #### [facility] ([facility]) [address] [place] [address] VIRUrea nitrogen [Mass/Vol]36 mg/dLHigh5-27ProBarberton Citizens Hospital HospitalComment on above:Performed By: #### LDH #### [facility] ([facility]) [address] [place] [address] VIRMAGNESIUMon 83-46-8101Cnspaiyrw [Mass/Vol]1.7 mg/dLLow 1.8-2.6ProVan Wert County Hospitalca [facility] HospitalComment on above:Performed By: #### LDH #### [facility] ([facility]) [address] [place] [address] VIRPHOSPHORUSon 78-72-1578Qgyacaddu [Mass/Vol]4.8 mg/dLNormal 2.4-4.9ProBarberton Citizens Hospital HospitalComment on above:Performed By: #### LDH #### [facility] ([facility]) [address] [place] [address] VIRUS ABDOMEN LMTDon 31-11-0754QG ABDOMEN LMTDUS ABDOMEN LMTD History: Abdominal distention Exam/Technique: Sonographic evaluation of the 4 quadrants of the abdomen were obtained. Comparison: None Findings: Small volume ascites is seen in the right and left lower quadrants. No other significant amounts of fluid was demonstrated. IMPRESSION: Small volume ascites and lower abdomen. Finalized by Kait Coleman MD on 02/16/2025 10:47 PMNormalProVan Wert County Hospitalca [facility] City HospitalUS RETROPERITONEAL COMPLETEon 10-31-3802UY RETROPERITONEAL COMPLETEUS RETROPERITONEAL COMPLETE History: Acute kidney injury Exam/Technique: Multiple sonographic images of both obtained. Comparison: Comparison made to a CT abdomen pelvis dated 01/29/2025 Findings: The kidneys are normal in size with right measuring 10.4 x 6.0 x 6.6 cm the left measuring 10.8 x 5.1 x 5.4 cm. No hydronephrosis, shadowing calculi, or solid renal masses were seen in either kidney. IMPRESSION: Normal renal ultrasound. Finalized by Kati Coleman MD on 02/16/2025 10:48 PMNormalProSt. John Of God HospitalAPTTon 26-30-0323mUGR Coag (Bld) [Time]32 xYmpjmy30-54BfwAredycSt. John Of God HospitalComment on above:Performed By: #### C125 #### [facility] ([facility]) [address] [place] [address] VIRC3 COMPLEMENTon 10-47-1795QKITQVNIQH C388 mg/dCCgyhki96-603 [facility] HospitalComment on above:Performed By: #### C125 #### [facility] ([facility]) [address] [place] [address] VIRC4 COMPLEMENTon 12-59-2629NXSSRARFUA C4<^6Yej38-61CjuSsduweJoint Township District Memorial HospitalComment on above:Performed By: #### C125 #### [facility] ([facility]) [address] [place] [address] VIRCBC WITH AUTO DIFFERENTIALon 49-15-8088EIEIEONGX ABSOLUTE COUNT (10*3/UL) BY AUTOMATED COUNT0.0 10*3/uLNormal0.0-0.2[facility] HospitalComment on above:Result Comment: This is an appended report. These results have been appended to a previously preliminary verified report.Performed By: #### FATEMEH #### [facility] ([id number]) [address] [place] [address] VIRBASOPHILS RELATIVE PERCENT BY AUTOMATED COUNT0.2 %Normal [facility] HospitalComment on above:Result Comment: This is an appended report. These results have been appended to a previously preliminary verified report.Performed By: #### FATEMEH #### [facility] ([id number]) [facility] [place] [address] VIRCELLAVISION DIFFERENTIAL TYPEAUTOMATED DIFFERENTIALNormal [facility] HospitalComment on above:Result Comment: This is an appended report. These results have been appended to a previously preliminary verified report.Performed By: #### FATEMEH #### [facility] ([id number]) [facility] [place] [address] VIRCELLAVISION POLYCHROMASIA IN BLOOD BY LIGHT MICROSCOPY1+ NormalJoint Township District Memorial HospitalComforest health medical center on above:Result Comment: This is an appended report. These results have been appended to a previously preliminary verified report.Performed By: #### FATEMEH #### [facility] ([id number]) [address] [place] [address] VIREosinophils (Bld) [#/Vol]0.0 10*3/uLNormal0.0-0.4[facility] HospitalComforest health medical center on above:Result Comment: This is an appended report. These results have been appended to a previously preliminary verified report. Performed By: #### FATEMEH #### [facility] ([id number]) [address] [place] [address] VIREOSINOPHILS RELATIVE PERCENT BY AUTOMATED COUNT0.0 %Normal ProMKeenan Private HospitalComforest health medical center on above:Result Comment: This is an appended report. These results have been appended to a previously preliminary verified report.Performed By: #### FATEMEH #### [facility] ([id number]) [address] [place] [address] VIRErythrocyte distribution width (RBC) [Ratio]20.0 %High 11.5-15ProSt. John Of God HospitalComment on above:Performed By: #### FATEMEH #### [facility] ([id number]) [facility] [place] [address] VIRHematocrit (Bld) [Volume fraction]25.7 %Rlq54-03KacZcyfcgJoint Township District Memorial HospitalComment on above:Performed By: #### FATEMEH #### [facility] ([id number]) [facility] [place] [address] VIRHemoglobin (Bld) [Mass/Vol]8.4 g/dLLow11.7-15.5[facility] HospitalComment on above:Performed By: #### FATEMEH #### [facility] ([id number]) [facility] [place] [address] VIRLYMPHOCYTES ABSOLUTE COUNT (10*3/UL) BY AUTOMATED COUNT0.9 10*3/uLLow1.0-3.5PPeoples Hospital HospitalComment on above:Result Comment: This is an appended report. These results have been appended to a previously prelimi nary verified report.Performed By: #### FATEMEH #### [facility] ([id number]) [address] [place] [address] VIRLYMPHOCYTES RELATIVE PERCENT BY AUTOMATED COUNT8.4 %Normal ProMKeenan Private HospitalComment on above:Result Comment: This is an appended report. These results have been appended to a previously preliminary verified report.Performed By: #### FATEMEH #### [facility] ([id number]) [address] [place] [address] VIRMCH (RBC) [Entitic mass]25.3 iwWbr57-67JkrYyokug [place] HospitalComment on above:Performed By: #### FATEMEH #### [facility] ([id number]) [address] [place] [address] VIRMCHC (RBC) [Mass/Vol]32.5 g/oLCquvzh30-37WxrXuozgq [place] HospitalComment on above:Performed By: #### FATEMEH #### [facility] ([id number]) [address] [place] [address] VIRMCV (RBC) [Entitic vol]78 tZYhs45-764OzpTdwkra [place] HospitalComment on above:Performed By: #### FATEMEH #### [facility] ([id number]) [address] [place] [address] VIRMONOCYTES ABSOLUTE COUNT (10*3/UL) BY AUTOMATED COUNT0.7 10*3/uLNormal0.0-0.9[facility] HospitalComforest health medical center on above:Result Comment: This is an appended report. These results have been appended to a previously preliminary verified report.Performed By: #### FATEMEH #### [facility] ([id number]) [address] [place] [address] VIRMONOCYTES RELATIVE PERCENT BY AUTOMATED COUNT6.2 %Normal [facility] HospitalCom[facility] medical center on above:Result Comment: This is an appended report. These results have been appended to a previously preliminary verified report.Performed By: #### FATEMEH #### [facility] ([id number]) [address] [place] [address] VIRNEUTROPHILS ABSOLUTE COUNT BY AUTOMATED COUNT9.2 10*3/uL High1.5-6.6[facility] HospitalComment on above:Result Comment: This is an appended report. These results have been appended to a previously preliminary verified report.Performed By: #### FATEMEH #### [facility] ([id number]) [address] [place] [address] VIRNEUTROPHILS RELATIVE PERCENT BY AUTOMATED COUNT85.2 % NormalJoint Township District Memorial HospitalComforest health medical center on above:Result Comment: This is an appended report. These results have been appended to a previously preliminary verified report.Performed By: #### FATEMEH #### [facility] ([id number]) [address] [place] [address] VIRPlatelet mean volume (Bld) [Entitic vol]8.7 fLNormal7-12 [facility] HospitalComforest health medical center on above:Performed By: #### FATEMEH #### [facility] ([id number]) [address] [place] [address] VIRPlatelets (Bld) [#/Vol]184 10*3/vISbfvxa729-193TkxCiklfwJoint Township District Memorial HospitalComment on above:Performed By: #### FATEMEH #### [facility] ([id number]) [address] [place] [address] VIRRBC COUNT3.31 X10E12/LLow3.8-5.2PMartin Memorial Hospital Comment on above:Performed By: #### FATEMEH #### [facility] ([id number]) [address] [place] [address] VIRWBC (Bld) [#/Vol]10.7 10*3/uLNormal4-11[facility] HospitalComment on above:Performed By: #### FATEMEH #### [facility] ([id number]) [facility] [place] [address] VIRCOMPREHENSIVE METABOLIC PANELon 02-95-3159Fcmekdh [Mass/Vol]3.0 g/dLLow3.2-5.3[facility] HospitalComment on above:Performed By: #### C125 #### [facility] ([facility]) [address] [place] [address] VIRALP [Catalytic activity/Vol]186 U/BYrwf29-066SioDwjwak [facility]ell HospitalComment on above:Performed By: #### C125 #### [facility] ([facility]) [address] [place] [address] VIRALT [Catalytic activity/Vol]22 U/LNormal<=31[facility] HospitalComment on above:Performed By: #### C125 #### [facility] ([facility]) [address] [place] [address] VIRAnion gap [Moles/Vol]6 mmol/LNormal5-15[facility] HospitalComment on above:Performed By: #### C125 #### [facility] ([facility]) [address] [place] [address] VIRAST [Catalytic activity/Vol]66 U/LHigh<=41[facility] HospitalComment on above:Performed By: #### C125 #### [facility] ([facility]) [address] [place] [address] VIRBilirubin [Mass/Vol]0.8 mg/dLNormal0.3-1.2[facility] HospitalComment on above:Performed By: #### C125 #### [facility] ([facility]) [address] [place] [address] VIRCalcium [Mass/Vol]8.0 mg/dLLow8.5-10.5PMartin Memorial HospitalComment on above:Performed By: #### C125 #### [facility] ([facility]) [address] [place] [address] VIRChloride [Moles/Vol]107 mmol/AJjdtrm38-142SkhHkwiis [place] HospitalComment on above:Performed By: #### C125 #### [facility] ([facility]) [address] [place] [address] VIRCO2 [Moles/Vol]20 mmol/DWdg65-75XyoXccpggMartin Memorial Hospital Comment on above:Performed By: #### C125 #### [facility] ([facility]) [address] [place] [address] VIRCreatinine [Mass/Vol]2.11 mg/dLHigh0.40-1.00ProSt. John Of God HospitalComment on above:Result Comment: METHOD TRACEABLE TO IDMS STANDARD Performed By: #### C125 #### [facility] ([facility]) [address] [place] [address] VIRGFR/1.73 sq M.predicted among non-blacks MDRD (S/P/Bld) [Vol rate/Area]24 mL/min/{1.73_m2}Low>=60ProSt. John Of God HospitalComment on above: Result Comment: Reported eGFR is based on the CKD-EPI 1 equation that does not use a race coefficient.Performed By: #### C125 #### [facility] ([facility]) [address] [place] [address] VIRGlucose [Mass/Vol]126 mg/oHAwvt78-76DwiYcdbhjSt. John Of God HospitalComment on above:Performed By: #### C125 #### [facility] ([facility]) [address] [place] [address] VIRPotassium [Moles/Vol]4.4 mmol/LNormal3.5-5.0ProSt. John Of God HospitalComment on above:Performed By: #### C125 #### [facility] ([facility]) [address] [place] [address] VIRProtein [Mass/Vol]8.9 g/dLHigh6.0-8.0ProSt. John Of God HospitalComment on above:Performed By: #### C125 #### [facility] ([facility]) [address] [place] [address] VIRSodium [Moles/Vol]133 mmol/OSko375-460VpkNniayiSt. John Of God HospitalComment on above:Performed By: #### C125 #### [facility] ([facility]) [address] [place] [address] VIRUrea nitrogen [Mass/Vol]27 mg/dLNormal5-27ProSt. John Of God HospitalComment on above:Performed By: #### C125 #### [facility] ([facility]) [address] [place] [address] VIRCYTOPLASMIC NEUTROPHILIC AB (ANCA), Son 89-49-4877M-ANCA NegativeNormalNegativeJoint Township District Memorial HospitalComment on above:Performed By: #### ABORHR #### [facility] ([facility]) [address] [place] [address] VIRP-ANCAIndeterminateAbnormalNegativeJoint Township District Memorial Hospital Comment on above:Result Comment: Indeterminate for pANCA pattern by immunofluorescence using ethanol-fixed neutrophils. Consider further testing for anti-proteinase 3 (PR3) and/or anti-myeloperoxidase (MPO) antibodies, if clinically indicated. Also, consider testing for antinuclear antibody (MOHINI) to rule out presence of interfering antibody. ADDITIONAL INFORMATION This test was developed and its performance characteristics determined by [facility] in a manner consistent with CLIA requirements. This test has not been cleared or approved by the U.S. Food and Drug Administration. Test Performed by: [facility] [address] [place] [address] Picker And Packer: Romain Campos Ph.D.; CLIA# [id number] By: #### ABORHR #### [facility] ([facility]) [address] [place] [address] VIRFIBRINOGENon 12-51-4249MNZGSZWBQR018 mg/yWLyhsho344-192 [facility] HospitalComment on above:Performed By: #### FATEMEH #### [facility] ([id number]) [address] [place] [address] VIRGLOMERULAR BASEMENT MEMBRANE IGG ABon 21-12-3771TXA IGG AB <^0.2Normal<1.0ProSt. John Of God HospitalComment on above:Performed By: #### LDH #### [facility] ([facility]) [address] [place] [address] VIRIMMUNOELECTROPHORESIS FOR THERAPY MONITORINGon 02-15-2025 FREE SHAI/LAMBD RATIO0.70Eyofrh4.26-1.65ProSt. John Of God HospitalComment on above:Performed By: #### ABORHR #### [facility] ([facility]) [address] [place] [address] VIRFREE KAPPA LT UPOHDE73.10 mg/dLHigh0.33-1.94ProSt. John Of God HospitalComment on above:Performed By: #### ABORHR #### [facility] ([facility]) [address] [place] [address] VIRFREE LAMBDA LT PFAKAR25.97 mg/dLHigh0.57-2.63ProSt. John Of God HospitalComment on above:Performed By: #### ABORHR #### [facility] ([facility]) [address] [place] [address] VIRIgA [Mass/Vol]332 mg/dUQbfwky12-147HhfLxvfde [facility] Comment on above:Performed By: #### ABORHR #### [facility] ([facility]) [address] [place] [address] VIRIgG [Mass/Vol]4713 mg/wJJfcd624-6597WgqTeyaqcMartin Memorial HospitalComment on above:Performed By: #### ABORHR #### [facility] ([facility]) [address] [place] [address] VIRIgM [Mass/Vol]174 mg/vVHetjys31-994DcmQemhbz [facility] Comment on above:Performed By: #### ABORHR #### [facility] ([facility]) [address] [place] [address] VIRIMMUNUE PROFILE INTERPSee Pathology ReportNormalProSt. John Of God HospitalComment on above:Performed By: #### ABORHR #### [facility] ([facility]) [address] [place] [address] VIRPROTEIN ELECTROPHORESIS, SERUMon 61-79-3691Vhppdye [Mass/Vol]3.1 g/dLLow3.4-5.3PMartin Memorial HospitalComment on above:Performed By: #### ABORHR #### [facility] ([facility]) [address] [place] [address] VIRALPHA 1 GLOBULIN0.2 g/dLNormal0.1-0.4ProSt. John Of God HospitalComment on above:Performed By: #### ABORHR #### [facility] ([facility]) [address] [place] [address] VIRALPHA 2 GLOBULIN0.5 g/dLNormal0.4-1.1PMartin Memorial HospitalComment on above:Performed By: #### ABORHR #### [facility] ([facility]) [address] [place] [address] VIRBETA GLOBULIN0.8 g/dLNormal0.5-1.2PMartin Memorial Hospital Comment on above:Performed By: #### ABORHR #### [facility] ([facility]) [address] [place] [address] VIRGAMMA GLOBULIN4.5 g/dLHigh0.5-1.6ProBarberton Citizens Hospital Hospital Comment on above:Performed By: #### ABORHR #### [facility] ([facility]) [address] [place] [address] VIRProtein [Mass/Vol]9.2 g/dLHigh6.0-8.0ProBar[facility] HospitalComment on above:Performed By: #### ABORHR #### [facility] ([facility]) [address] [place] [address] VIRPROTEIN ELECTROPHORESIS INTERPSee Pathology ReportNormal ProMKeenan Private HospitalComment on above:Performed By: #### ABORHR #### [facility] ([facility]) [address] [place] [address] VIRPROTEIN, URINE, RANDOMon [id number] PROTEIN, RANDOM (MG/L)930 mg/LHigh<120ProBar[facility] HospitalComment on above:Performed By: #### C125 #### [facility] ([facility]) [address] [place] [address] VIRPROTIME AND INRon 10-22-3396VBV4.6High0.9-1.2PPeoples Hospital HospitalComment on above:Performed By: #### C125 #### [facility] ([facility]) [address] [place] [address] VIRPT Coag (PPP) [Time]18.3 sHigh9.8-13.2PPeoples Hospital HospitalComment on above:Performed By: #### C125 #### [facility] ([facility]) [address] [place] [address] VIRSODIUM, URINE, RANDOMon 70-50-0532Ivbljs (U) [Moles/Vol]28 mmol/LNormalProBarberton Citizens Hospital HospitalComment on above:Performed By: #### LDH #### [facility] ([facility]) [address] [place] [address] VIRURINALYSISon 57-56-5524Eqplffrwh Ql (U)NegativeNormal NegativeProSt. John Of God HospitalComment on above:Order Comment: Please complete with microscopic exam of the urine sedimentPerformed By: #### LDH #### [facility] ([facility]) [address] [place] [address] VIRBLOOD/HGBLargeAbnormalNegativeJoint [facility] District [facility] Comment on above:Order Comment: Please complete with microscopic exam of the urine sedimentPerformed By: #### LDH #### [facility] ([facility]) [address] [place] [address] VIRColor (U)YellowNormalYellowProSt. John Of God HospitalComforest health medical center on above:Order Comment: Please complete with microscopic exam of the urine sedimentPerformed By: #### LDH #### [facility] ([facility]) [address] [place] [address] VIRGlucose Ql (U)NegativeNormalNegativeProSt. John Of God HospitalComment on above:Order Comment: Please complete with microscopic exam of the urine sedimentPerformed By: #### LDH #### [facility] ([facility]) [address] [place] [address] VIRHyaline casts LM Ql (Urine sed)3Juii9-5MkmHbkbaa [facility] HospitalComment on above:Order Comment: Please complete with microscopic exam of the urine sedimentPerformed By: #### LDH #### [facility] ([facility]) [address] [place] [address] VIRKetones Ql (U)TraceAbnormalNegativeJoint Township District Memorial Hospital Comment on above:Order Comment: Please complete with microscopic exam of the urine sedimentPerformed By: #### LDH #### [facility] ([facility]) [address] [place] [address] VIRLeukocyte esterase Test strip Ql (U)ModerateAbnormalNegative [facility]ell HospitalComment on above:Order Comment: Please complete with microscopic exam of the urine sedimentPerformed By: #### LDH #### [facility] ([facility]) [address] [place] [address] VIRMUCOUSPresentAbnormalNonePAdams County Hospital on above:Order Comment: Please complete with microscopic exam of the urine sedimentPerformed By: #### LDH #### [facility] ([facility]) [address] [place] [address] VIRNitrite Ql (U)NegativeNormalNegativeProSt. John Of God HospitalComforest health medical center on above:Order Comment: Please complete with microscopic exam of the urine sedimentPerformed By: #### LDH #### [facility] ([facility]) [address] [place] [address] VIRPH,URINE5.3Tctxko7.0-8.5PMartin Memorial HospitalComforest health medical center on above:Order Comment: Please complete with microscopic exam of the urine sediment Performed By: #### LDH #### [facility] ([facility]) [address] [place] [address] VIRProtein Ql (U)50 mg/dLAbnormalNegativePremier Health on above:Order Comment: Please complete with microscopic exam of the urine sedimentPerformed By: #### LDH #### [facility] ([facility]) [address] [place] [address] VIRR.B.BVQKW643Rnqd1-1FjtUgicwnAdams County Hospital on above:Order Comment: Please complete with microscopic exam of the urine sediment Performed By: #### LDH #### [facility] ([facility]) [address] [place] [address] VIRSpecific gravity (U) [Rel density]1.012Kwmrdx2.003-1.035 [facility] HospitalComforest health medical center on above:Order Comment: Please complete with microscopic exam of the urine sedimentPerformed By: #### LDH #### [facility] ([facility]) [address] [place] [address] VIRSQUAMOUS EPITHELIUM<^3Hjhgdx9-5NqrDheqgsMartin Memorial Hospital Comment on above:Order Comment: Please complete with microscopic exam of the urine sedimentPerformed By: #### LDH #### [facility] ([facility]) [address] [place] [address] VIRTURBIDITYHazyAbnormalClearPMartin Memorial HospitalComment on above:Order Comment: Please complete with microscopic exam of the urine sedimentPerformed By: #### LDH #### [facility] ([facility]) [address] [place] [address] VIRUROBILINOGEN<1.1 eu/dLNormal<1.1 eu/dLProSt. John Of God HospitalComment on above:Order Comment: Please complete with microscopic exam of the urine sedimentPerformed By: #### LDH #### [facility] ([facility]) [address] [place] [address] VIRW.B.UBMVK00Hkry0-4XveVrzndqMartin Memorial HospitalComment on above: Order Comment: Please complete with microscopic exam of the urine sediment Performed By: #### LDH #### [facility] ([facility]) [address] [place] [address] VIRURINE CREATININE,RANDOMon 18-17-1243NXAEV CREATININE,RDM 204.31 mg/dLNormalProSt. John Of God HospitalComment on above:Performed By: #### C125 #### [facility] ([facility]) [address] [place] [address] VIRALBUMIN, FLUIDon 77-62-0264GTLGMMI, FLUID<^1.5Normal [facility] HospitalComment on above:Order Comment: Pre-op diagnosis:OVARIAN MASS BILATERAL, BLADDER CANCERThe reference interval and ot ermethod performance specifications areunavailable for this body fluid.Comparison of this result toserumor plasma is recommended.Performed By: #### FATEMEH #### [facility] ([id number]) [address] [place] [address] VIRAPTTon 08-44-0001jXVK Coag (Bld) [Time]33 vGctelo53-63 [facility] HospitalComment on above:Performed By: #### FATEMEH #### [facility] ([id number]) [address] [place] [address] VIRBODY FLUID CELL COUNTon 37-69-9967BJPKV RBC HV4407 /uL NormalJoint Township District Memorial HospitalComment on above:Order Comment: From acidic fluid collected 02/14Reference values for this fluid type are undefined, as fluid accumulation is considered abnormal.Performed By: #### LDH #### [facility] ([facility]) [address] [place] [address] VIRNUCLEATED CELL CT643 /uLKettering Health [facility] Hospital Comment on above:Order Comment: From acidic fluid collected 02/14Reference values for this fluid type are undefined, as fluid accumulation is considered abnormal.Performed By: #### LDH #### [facility] ([facility]) [address] [place] [address] VIRPM FLUID CLARITYHazyNormalJoint Township District Memorial HospitalComment on above:Order Comment: From acidic fluid collected 02/14Reference values for this fluid type are undefined, as fluid accumulation is considered abnormal. Performed By: #### LDH #### [facility] ([facility]) [address] [place] [address] VIRPM FLUID COLORYellowNoUniversity Hospitals Beachwood Medical CenterComment on above:Order Comment: From acidic fluid collected 02/14Reference values for this fluid type are undefined, as fluid accumulation is considered abnormal. Performed By: #### LDH #### [facility] ([facility]) [address] [place] [address] VIRBODY FLUID CULTUREon 49-39-5639WBDE FLUID CULTURECULTURE RESULTS NO GROWTH 5 DAYS GRAM STAIN White Blood Cells Present No organisms seen On Concentrated SmearKettering Health Troy HospitalComment on above:Order Comment: From acidic fluid collected 02/14Performed By: #### C125 #### [facility] ([facility]) [address] [place] [address] VIRCOMPREHENSIVE METABOLIC PANELon 61-68-6139Bppasip [Mass/Vol] 2.9 g/dLLow3.2-5.3ProMedZanesville City Hospital HospitalComment on above:Performed By: #### FATEMEH #### [facility] ([id number]) [facility] [facility] [place] [address] VIRALP [Catalytic activity/Vol]199 U/SNbdu44-978HhjDvsbhx [place] HospitalComment on above:Performed By: #### FATEMEH #### [facility] ([id number]) [address] [place] [address] VIRALT [Catalytic activity/Vol]25 U/LNormal<=31ProMedZanesville City Hospital HospitalComment on above:Performed By: #### FATEMEH #### [facility] ([id number]) [address] [place] [address] VIRAnion gap [Moles/Vol]10 mmol/LNormal5-15ProBarberton Citizens Hospital HospitalComment on above:Performed By: #### FATEMEH #### [facility] ([id number]) [address] [place] [address] VIRAST [Catalytic activity/Vol]76 U/LHigh<=41ProBarberton Citizens Hospital HospitalComment on above:Performed By: #### FATEMEH #### [facility] ([id number]) [address] [place] [address] VIRBilirubin [Mass/Vol]1.1 mg/dLNormal0.3-1.2ProMedZanesville City Hospital HospitalComment on above:Performed By: #### FATEMEH #### [facility] ([id number]) [address] [place] [address], [place] [address] VIRCalcium [Mass/Vol]8.5 mg/dLNormal8.5-10.5PPeoples Hospital HospitalComment on above:Performed By: #### FATEMEH #### [facility] ([id number]) [address] [facility] [place] [address] VIRChloride [Moles/Vol]108 mmol/DEjvdlq85-056WvwDgdoyf [place] HospitalComment on above:Performed By: #### FATEMEH #### [facility] ([id number]) [address] [facility] [place] [address] VIRCO2 [Moles/Vol]18 mmol/DTpr11-72FldVdswsr [facility] Comment on above:Performed By: #### FATEMEH #### [facility] ([id number]) [address] [facility] [place] [address] VIRCreatinine [Mass/Vol]1.59 mg/dLHigh0.40-1.00ProBarberton Citizens Hospital HospitalComment on above:Result Comment: METHOD TRACEABLE TO IDMS STANDARDPerformed By: #### FATEMEH #### [facility] ([id number]) [address] [facility] [place] [address] VIRGFR/1.73 sq M.predicted among non-blacks MDRD (S/P/Bld) [Vol rate/Area]34 mL/min/{1.73_m2}Low>=60ProBarberton Citizens Hospital HospitalComment on above:Result Comment: Reported eGFR is based on the CKD-EPI 2020 equation that does not use a race coefficient.Performed By: #### FATEMEH #### [facility] ([id number]) [address] [facility] [place] [address] VIRGlucose [Mass/Vol]135 mg/eNUnjc79-48PfwGfxxkd [place] HospitalComment on above:Performed By: #### FATEMEH #### [facility] ([id number]) [address] [facility] [place] [place] [address] VIRPotassium [Moles/Vol]3.8 mmol/LNormal3.5-5.0ProBarberton Citizens Hospital HospitalComment on above:Performed By: #### FATEMEH #### [facility] ([id number]) [address] [facility] [place] [address] VIRProtein [Mass/Vol]8.9 g/dLHigh6.0-8.0Pro[facility]ica Odell HospitalComment on above:Performed By: #### FATEMEH #### [facility] ([id number]) [address] [place] [address] VIRSodium [Moles/Vol]136 mmol/DNrvdzd934-804UpaEunqjb [facility]ell HospitalComment on above:Performed By: #### FATEMEH #### [facility] ([id number]) [address] [place] [address] VIRUrea nitrogen [Mass/Vol]19 mg/dLNormal5-27Pro[facility]ica [facility] HospitalComment on above:Performed By: #### FATEMEH #### [facility] ([id number]) [address] [place] [address] VIRAlbumin [Mass/Vol]3.0 g/dLLow3.2-5.3Pro[facility]ica [facility]ell HospitalComment on above:Performed By: #### CMP #### [facility] ([facility]) [address] [place] [address] VIRALP [Catalytic activity/Vol]249 U/GHdgc69-496MxyEkcipk Odell HospitalComment on above:Performed By: #### CMP #### [facility] ([facility]) [address] [place] [address] VIRALT [Catalytic activity/Vol]33 U/LHigh<=31[facility] HospitalComment on above:Performed By: #### CMP #### [facility] ([facility]) [address] [place] [address] VIRAnion gap [Moles/Vol]8 mmol/LNormal5-15[facility] HospitalComment on above:Performed By: #### CMP #### [facility] ([facility]) [address] [place] [address] VIRAST [Catalytic activity/Vol]101 U/LHigh<=41[facility] HospitalComment on above:Performed By: #### CMP #### [facility] ([facility]) [address] [place] [address] VIRBilirubin [Mass/Vol]1.0 mg/dLNormal0.3-1.2PMartin Memorial HospitalComment on above:Performed By: #### CMP #### [facility] ([facility]) [address] [place] [address] VIRCalcium [Mass/Vol]8.3 mg/dLLow8.5-10.5PPeoples Hospital HospitalComment on above:Performed By: #### CMP #### [facility] ([facility]) [address] [place] [address] VIRChloride [Moles/Vol]107 mmol/VNvknhm36-060YckSvvklz [place] HospitalComment on above:Performed By: #### CMP #### [facility] ([facility]) [address] [place] [address] VIRCO2 [Moles/Vol]20 mmol/AQje75-47UukCesimc [facility] Comment on above:Performed By: #### CMP #### [facility] ([facility]) [address] [place] [address] VIRCreatinine [Mass/Vol]1.74 mg/dLHigh0.40-1.00ProSt. John Of God HospitalComment on above:Result Comment: METHOD TRACEABLE TO IDMS STANDARD Performed By: #### CMP #### [facility] ([facility]) [address] [place] [address] VIRGFR/1.73 sq M.predicted among non-blacks MDRD (S/P/Bld) [Vol rate/Area]31 mL/min/{1.73_m2}Low>=60ProSt. John Of God HospitalComment on above: Result Comment: Reported eGFR is based on the CKD-EPI 2020 equation that does not use a race coefficient.Performed By: #### CMP #### [facility] ([facility]) [address] [place] [address] VIRGlucose [Mass/Vol]105 mg/eIWzfj99-57IrjLjkrhh [place] HospitalComment on above:Performed By: #### CMP #### [facility] ([facility]) [address] [place] [address] VIRPotassium [Moles/Vol]3.5 mmol/LNormal3.5-5.0ProBarberton Citizens Hospital HospitalComment on above:Performed By: #### CMP #### [facility] ([facility]) [address] [place] [address] VIRProtein [Mass/Vol]10.5 g/dLHigh6.0-8.0ProBarberton Citizens Hospital HospitalComment on above:Performed By: #### CMP #### [facility] ([facility]) [address] [place] [address] VIRSodium [Moles/Vol]135 mmol/WUzwbdp344-537YedBpizye [place] HospitalComment on above:Performed By: #### CMP #### [facility] ([facility]) [address] [place] [address] VIRUrea nitrogen [Mass/Vol]19 mg/dLNormal5-27ProBar[facility] HospitalComment on above:Performed By: #### CMP #### [facility] ([facility]) [address] [place] [address] VIRFIBRINOGENon 26-60-9476BIPGTOQDRQ012 mg/eEUve852-215 [facility] HospitalComment on above:Performed By: #### FATEMEH #### [facility] ([id number]) [address] [place] [address] VIRFL UROGRAPHY RETRO OPERATIVE W OR WO KUBon 94-95-3215TT UROGRAPHY RETRO OPERATIVE W OR WO KUBFL UROGRAPHY RETRO OPERATIVE W OR WO KUB FL UROGRAPHY RETRO OPERATIVE W OR WO KUB INDICATION: Intraoperative imaging for localization of treatment planning. COMPARISON: None FINDINGS: Fluoro Time: 0.5 minutes Reference Air Kerma: 19.53 mGy Number of images: 7 Images of procedure in progress demonstrate localization for bilateral retrograde urography noting contrast injection. IMPRESSION: Intraoperative imaging for the purposes of treatment planning and localization. Refer to final operative report for complete details. Finalized by Krystyna West MD on 02/14/2025 12:24 PMNormalProNorth Mississippi Medical Center Odell HospitalPOCT ABG RAPID K GLU ICA HHon 85-85-8965VTWD,DEFICIT-5.0 mmol/LLow 0.0-2.0ProBarberton Citizens Hospital HospitalComment on above:Performed By: #### FATEMEH #### [facility] ([id number]) [address] [place] [address] VIRBody ejyubpqbtpj27.6 [degF]Normal>=37ProBarberton Citizens Hospital HospitalComment on above:Performed By: #### FATEMEH #### [facility] ([id number]) [address] [place] [address] VIRGlucose [Mass/Vol]119 mg/uGCopf40-58BnwLcnkha [place] HospitalComment on above:Performed By: #### FATEMEH #### [facility] ([id number]) [address] [place] [address] VIRHCO3 (Bld) [Moles/Vol]20.7 mmol/LLow22.0-26.0[facility] HospitalComment on above:Performed By: #### FATEMEH #### [facility] ([id number]) [address] [place] [address] VIRHematocrit (Bld) [Volume fraction]26 %Mep92-00RanFjtpie [place] HospitalComment on above:Performed By: #### FATEMEH #### [facility] ([id number]) [address] [place] [address] VIRHemoglobin (Bld) [Mass/Vol]8.6 g/dLLow11.7-15.5[facility] City HospitalComment on above:Performed By: #### FATEMEH #### [facility] ([id number]) [address] [place] [address] VIRINSP. O2 CONC.100.0 %NormalProBarberton Citizens Hospital Hospital Comment on above:Performed By: #### FATEMEH #### [facility] ([id number]) [address] [facility] [place] [address] VIROxygen saturation in Blood95.1 %Normal>90.0Joint [facility] HospitalComment on above:Performed By: #### FATEMEH #### [facility] ([id number]) [address] [facility] [place] [place] [address] VIRPCO2 DYSWENWA83.5 igKnOwqtiw40.0-45.0ProBarberton Citizens Hospital HospitalComment on above:Performed By: #### FATEMEH #### [facility] ([id number]) [address] [facility] [place] [address] VIRPH ARTERIAL7.506Cwooyg7.350-7.450[facility] Comment on above:Performed By: #### FATEMEH #### [facility] ([id number]) [address] [place] [address], [place] [address] VIRPO2 VAJXMWHH59 dtRuIbm98-821DwfXnpqffJoint Township District Memorial Hospital Comment on above:Performed By: #### FATEMEH #### [facility] ([id number]) [address] [place] [address], [place] [address] VIRPOC VIDYA'S TESTNoUniversity Hospitals Beachwood Medical CenterComment on above:Performed By: #### FATEMEH #### [facility] ([id number]) [facility] [place] [address] VIRPORTABLE ICA4.3 mg/dLLow4.5-5.3PMartin Memorial Hospital Comment on above:Performed By: #### FATEMEH #### [facility] ([id number]) [facility] [place] [address] VIRPotassium [Moles/Vol]3.5 mmol/LNormal3.5-5.0[facility] HospitalComment on above:Performed By: #### FATEMEH #### [facility] ([id number]) [facility] [place] [place] [address] VIRSAMPLE SITEA LINENormalMetroHealth [facility] HospitalComment on above:Performed By: #### FATEMEH #### [facility] ([id number]) [address] [facility] [place] [place] [address] VIRSAMPLE TYPEArterialNormalProBarberton Citizens Hospital HospitalComment on above:Performed By: #### FATEMEH #### [facility] ([id number]) [address] [facility] [place] [place] [address] VIRBASE,DEFICIT-4.9 mmol/LLow0.0-2.0ProBarberton Citizens Hospital Hospital Comment on above:Performed By: #### FATEMEH #### [facility] ([id number]) [address] [facility] [place] [place] [address] VIRBody vrdxaqfemap53.6 [degF]Normal>=37ProBar[facility] Hospital HospitalComment on above:Performed By: #### FATEMEH #### [facility] ([id number]) [facility] [place] [place] [address] VIRGlucose [Mass/Vol]110 mg/aXLalt09-86YtmKegrwn [place] HospitalComment on above:Performed By: #### FATEMEH #### [facility] ([id number]) [facility] [place] [address] VIRHCO3 (Bld) [Moles/Vol]20.4 mmol/LLow22.0-26.0[facility] HospitalComment on above:Performed By: #### FATEMEH #### [facility] ([id number]) [facility] [place] [address] VIRHematocrit (Bld) [Volume fraction]27 %Qrh84-48MnlAtfuxw [place] HospitalComment on above:Performed By: #### FATEMEH #### [facility] ([id number]) [address] [facility] [place] [place] [address] VIRHemoglobin (Bld) [Mass/Vol]8.9 g/dLLow11.7-15.5PPeoples Hospital HospitalComment on above:Performed By: #### FATEMEH #### [facility] ([id number]) [address] [facility] [place] [address] VIRINSP. O2 CONC.100.0 %NormalJoint Township District Memorial Hospital Comment on above:Performed By: #### FATEMEH #### [facility] ([id number]) [address] [place] [id number] VIROxygen saturation in Blood99.6 %Normal>90.0[facility] HospitalComment on above:Performed By: #### FATEMEH #### [facility] ([id number]) [address] [place] [address] VIRPCO2 TPXMWWZX85.6 doWoPfhqmr83.0-45.0[facility] HospitalComment on above:Performed By: #### FATEMEH #### [facility] ([id number]) [address] [place] [address] VIRPH ARTERIAL7.748Hfpdgi6.350-7.450[facility] Comment on above:Performed By: #### FATEMEH #### [facility] ([id number]) [address] [place] [address]27 VIRPO2 [id number] [id number] Township District Memorial Hospital Comment on above:Performed By: #### FATEMEH #### [facility] ([id number]) [address] [place] [address] 13374 VIRPOC VIDYA'S TESTNormalJoint Township District Memorial HospitalComment on above:Performed By: #### FATEMEH #### [facility] ([id number]) [address] [place] [address] 05208 VIRPORTABLE ICA4.4 mg/dLLow4.5-5.3PMartin Memorial Hospital Comment on above:Performed By: #### FATEMEH #### [facility] ([id number]) [address] [place] [address] 86497 VIRPotassium [Moles/Vol]3.3 mmol/LLow3.5-5.0Joint [facility] Memorial HospitalComment on above:Performed By: #### FATEMEH #### [facility] ([id number]) [address] [place] [address] 21840 VIRSAMPLE SITEA LINENormalProMedica Coulee City HospitalComment on above:Performed By: #### FATEMEH #### [facility] ([id number]) [address] [place] [address] 42696 VIRSAMPLE TYPEArterialNormalProBarberton Citizens Hospital HospitalComment on above:Performed By: #### FATEMEH #### [facility] ([id number]) [address] [place] [address] 89229 VIRPROTIME AND INRon 95-18-0945OBD0.6High0.9-1.2PPeoples Hospital HospitalComment on above:Performed By: #### FATEMEH #### [facility] ([id number]) [address] [place] [address] 57595 VIRPT Coag (PPP) [Time]18.0 sHigh9.8-13.2PPeoples Hospital HospitalComment on above:Performed By: #### FATEMEH #### [facility] ([id number]) [address] [place] [address] 62114 VIRINR1.5High0.9-1.2PPeoples Hospital HospitalComment on above:Performed By: #### PINR #### [facility] ([facility]) [address] [place] [address] VIRPT Coag (PPP) [Time]17.0 sHigh9.8-13.2PPeoples Hospital HospitalComment on above:Performed By: #### PINR #### [facility] ([facility]) [address] [place] [address] VIRREFLEXED BODY FLUID CELL COUNT DIFFERENTIALon 02-14-2025 FLUID LYMPHOCYTE RELATIVE PERCENT BY MANUAL COUNT36 %NormalMetroHealth Parma Medical Center HospitalComment on above:Order Comment: From acidic fluid collected 02/14Reference values for this fluid type are undefined, as fluid accumulation is considered abnormal.Performed By: #### C125 #### [facility] ([facility]) [address] [place] [address] VIRFLUID MACROPHAGE RELATIVE PERCENT BY MANUAL COUNT60 %Normal [facility] HospitalComment on above:Order Comment: From acidic fluid collected 02/14Reference values for this fluid type are undefined, as fluid accumulation is considered abnormal.Performed By: #### C125 #### [facility] ([facility]) [address] [place] [address] VIRFLUID MESOTHELIAL RELATIVE PERCENT BY MANUAL COUNT3 %Normal [facility] HospitalComment on above:Order Comment: From acidic fluid collected 02/14Reference values for this fluid type are undefined, as fluid accumulation is considered abnormal.Performed By: #### C125 #### [facility] ([facility]) [address] [place] [address] VIRFLUID NEUTROPHILS RELATIVE PERCENT BY MANUAL COUNT1 %Normal [facility] HospitalComment on above:Order Comment: From acidic fluid collected 02/14Reference values for this fluid type are undefined, as fluid accumulation is considered abnormal.Performed By: #### C125 #### [facility] ([facility]) [address] [place] [address] VIRTOTAL CELLS LMTPNBF197 %NormalJoint Township District Memorial Hospital Comment on above:Order Comment: From acidic fluid collected 02/14Reference values for this fluid type are undefined, as fluid accumulation is considered abnormal.Performed By: #### C125 #### [facility] ([facility]) [address] [place] [address] VIRREPEATED ABORHon [id number]_VMLJPMAkaldfCpcMjkgpa [place]ell HospitalComment on above:Performed By: #### ABORHR #### [facility] ([facility]) [address] [place] [address] VIRRH_INTEPNegativeNormalProMedica Odell HospitalComment on above:Performed By: #### ABORHR #### [facility] ([facility]) [address] [place] [address] VIRTOTAL PROTEIN, FLUIDon [id number] PROTEIN, FLUID3.2 g/dLNormalProBarberton Citizens Hospital HospitalComment on above:Order Comment: From acidic fluid collected 02/14The reference interval and othermethod performance sp ecifications areunavailable for this body fluid.Comparison of this result to serumor plasma is recommended.Performed By: #### C125 #### [facility] ([facility]) [address] [place] [address] VIRABO Rh Repeaton [id number] and Rh group Nom (Bld)B [facility] Valley Medical CenterABO and Rh group Nom (Bld)NegativeGood Shepherd Specialty HospitalCBC WITH AUTO DIFFERENTIALon [id number] ABSOLUTE COUNT (10*3/UL) BY AUTOMATED COUNT0.0 10*3/uLNormal0.0-0.2Pro[facility]ica [facility] HospitalComment on above:Performed By: #### CBCA #### [facility] ([facility]) [address] [place] [address] VIRBASOPHILS RELATIVE PERCENT BY AUTOMATED COUNT0.4 %Normal [facility] HospitalComment on above:Performed By: #### CBCA #### [facility] ([facility]) [address] [place] [address] VIRCELLAVISION DIFFERENTIAL TYPEAUTOMATED DIFFERENTIALNormal [facility] HospitalComment on above:Performed By: #### CBCA #### [facility] ([facility]) [address] [place] [address] VIREosinophils (Bld) [#/Vol]0.1 10*3/uLNormal0.0-0.4ProVan Wert County Hospitalca [place]lee City HospitalComment on above:Performed By: #### CBCA #### [facility] ([facility]) [address] [place] [address] 21475 VIREOSINOPHILS RELATIVE PERCENT BY AUTOMATED COUNT1.0 %Normal [facility] HospitalComment on above:Performed By: #### CBCA #### [facility] ([facility]) [address] [place] [address] VIRErythrocyte distribution width (RBC) [Ratio]19.0 %High 11.5-15ProMedica [place] HospitalComment on above:Performed By: #### CBCA #### [facility] ([facility]) [address] [place] [address] VIRHematocrit (Bld) [Volume fraction]28.9 %Fhw31-35OklRbheik [place] HospitalComment on above:Performed By: #### CBCA #### [facility] ([facility]) [address] [place] [address] VIRHemoglobin (Bld) [Mass/Vol]9.5 g/dLLow11.7-15.5ProMedica [place] City HospitalComment on above:Performed By: #### CBCA #### [facility] ([facility]) [address] [place] [address] VIRLYMPHOCYTES ABSOLUTE COUNT (10*3/UL) BY AUTOMATED COUNT1.4 10*3/uLNormal1.0-3.5ProMedZanesville City Hospital HospitalComment on above:Performed By: #### CBCA #### [facility] ([facility]) [address] [place] [address] VIRLYMPHOCYTES RELATIVE PERCENT BY AUTOMATED COUNT23.1 %Normal [facility] [place] HospitalComment on above:Performed By: #### CBCA #### [facility] ([facility]) [address] [place] [address] VIRMCH (RBC) [Entitic mass]24.3 bpAyl43-14HerGflcyv [place] HospitalComment on above:Performed By: #### CBCA #### [facility] ([facility]) [address] [place] [address] VIRMCHC (RBC) [Mass/Vol]32.7 g/iLOyxqkh06-64UkjMvlzjg [place] HospitalComment on above:Performed By: #### CBCA #### [facility] ([facility]) [address] [place] [address] VIRMCV (RBC) [Entitic vol]74 aBYlc38-523BgjBdhepw [place] HospitalComment on above:Performed By: #### CBCA #### [facility] ([facility]) [address] [place] [address] VIRMONOCYTES ABSOLUTE COUNT (10*3/UL) BY AUTOMATED COUNT0.4 10*3/uLNormal0.0-0.9ProBarberton Citizens Hospital HospitalComment on above:Performed By: #### CBCA #### [facility] ([facility]) [address] [place] [address] VIRMONOCYTES RELATIVE PERCENT BY AUTOMATED COUNT7.2 %Normal ProMMercy Health [facility] HospitalComment on above:Performed By: #### CBCA #### [facility] ([facility]) [address] [place] [address] VIRNEUTROPHILS ABSOLUTE COUNT BY AUTOMATED COUNT4.1 10*3/uL Normal1.5-6.6ProBarberton Citizens Hospital HospitalComment on above:Performed By: #### CBCA #### [facility] ([facility]) [address] [place] [address] VIRNEUTROPHILS RELATIVE PERCENT BY AUTOMATED COUNT68.3 %Normal ProMMercy [facility] HospitalComment on above:Performed By: #### CBCA #### [facility] ([facility]) [address] [place] [address] VIRPlatelet mean volume (Bld) [Entitic vol]9.4 fLNormal7-[address] [facility] HospitalComment on above:Performed By: #### CBCA #### [facility] ([facility]) [address] [place] [address] VIRPlatelets (Bld) [#/Vol]223 10*3/fCQnwgwx693-204TzcOmlmlb [place] HospitalComment on above:Performed By: #### CBCA #### [facility] ([facility]) [address] [place] [address] VIRRBC COUNT3.89 X10E12/LNormal3.8-5.2PMartin Memorial Hospital Comment on above:Performed By: #### CBCA #### [facility] ([facility]) [address] [place] [address] VIRWBC (Bld) [#/Vol]6.0 10*3/uLNormal4-11[facility] HospitalComment on above:Performed By: #### CBCA #### [facility] ([facility]) [address] [place] [address] VIRCBC auto differentialon [id number] (Bld) [#/Vol]0 10*3/uL0.0 - 0.2 10*3/uLUpper Valley Medical CenterBasophils/100 WBC (Bld)0.4 % [facility] Medical CenterDifferential cell count method Nom (Bld)AUTOMATED DIFFERENTIALUpper Valley Medical CenterEosinophils (Bld) [#/Vol]0.1 10*3/uL0.0 - 0.4 10*3/uLUpper Valley Medical CenterEosinophils/100 WBC (Bld)1 %[facility] Medical CenterErythrocyte distribution width (RBC) [Ratio]19 %High11.5 - 15 %[facility] Medical CenterHematocrit (Bld) [Volume fraction]28.9 %Low35 - 47 %[facility] Medical CenterHemoglobin (Bld) [Mass/Vol]9.5 g/dLLow11.7 - 15.5 g/dLUpper Valley Medical CenterInterpretation and review of laboratory resultsAbnormalUpper Valley Medical CenterLymphocytes (Bld) [#/Vol]1.4 10*3/uL1.0 - 3.5 10*3/uLUpper Valley Medical CenterLymphocytes/100 WBC (Bld)23.1 %[facility] (RBC) [Entitic mass]24.3 pgLow27 - 34 pgProMedica Health SystemMCHC (RBC) [Mass/Vol] 32.7 g/dL32 - 36 g/dLUpper Valley Medical CenterMCV (RBC) [Entitic vol]74 fLLow80 - 100 [facility] JoplinMonocytes (Bld) [#/Vol]0.4 10*3/uL0.0 - 0.9 10*3/uL [facility] CenterMonocytes/100 WBC (Bld)7.2 %[facility] Neutrophils (Bld) [#/Vol]4.1 10*3/uL1.5 - 6.6 10*3/[facility] Neutrophils/100 WBC (Bld)68.3 %[facility] Medical CenterPlatelet mean volume (Bld) [Entitic vol]9.4 fL7 - 12 [facility] JoplinPlatelets (Bld) [#/Vol]223 10*3/uLUpper Valley Medical CenterRBC (Bld) [#/Vol]3.89 10*6/[facility] County Memorial HospitalWBC LM Ql (Sput)6[facility] HospitalTYPE AND SCREENon [id number]_VJWJFBDamrheOzcHjexfh [place] HospitalComment on above: Performed By: #### TSC #### [facility] ([facility]) [address] [place] [address] VIRPerformed By: #### ABORHR #### [facility] ([facility]) [address] [place] [address] VIRRH_INTEPNegativeNormalMetroHealth Parma Medical Center HospitalComment on above:Performed By: #### TSC #### [facility] ([facility]) [address] [place] [address] VIRPerformed By: #### ABORHR #### [facility] ([facility]) [address] [place] [address] VIRType and screen(includes indirect severo)on [id number] and Rh group Nom (Bld)BPSt. John of God HospitalABO and Rh group Nom (Bld)Negative ProMAdena Pike Medical CenterBlood group antibody screen.cells I+II+III QlNegative ProMedica Health SystemProAultman Orrville HospitalURINALYSChillicothe Hospital 82-94-5403Zazxeebyg Ql (U)NegativeNormalNegativeProMidland Memorial HospitalComforest health medical center on above:Order Comment: Clean catch, midstream if symptomatic. Urine culture if positive for bacteria, blood, protein, white blood count over 5, nitrates or leukocyte esterase positivePerformed By: #### UA #### [facility] ([facility]) [address] [place] [address] VIRBLOOD/HGBModerateAbnormalNegBucyrus Community Hospital Comment on above:Order Comment: Clean catch, midstream if symptomatic. Urine culture if positive for bacteria, blood, protein, white blood count over 5, nitrates or leukocyte esterase positivePerformed By: #### UA #### [facility] ([facility]) [address] [place] [address] VIRColor (U)YellowNormalYellowMercy Health Defiance HospitalComforest health medical center on above:Order Comment: Clean catch, midstream if symptomatic. Urine culture if positive for bacteria, blood, protein, white blood count over 5, nitrates or leukocyte esterase positivePerformed By: #### UA #### [facility] ([facility]) [address] [place] [address] VIRGlucose Ql (U)NegativermalNegBucyrus Community HospitalComforest health medical center on above:Order Comment: Clean catch, midstream if symptomatic. Urine culture if positive for bacteria, blood, protein, white blood count over 5, nitrates or leukocyte esterase positivePerformed By: #### UA #### [facility] ([facility]) [address] [place] [address] VIRKetones Ql (U)NegativeNormalNegativeMercy Health Defiance HospitalComforest health medical center on above:Order Comment: Clean catch, midstream if symptomatic. Urine culture if positive for bacteria, blood, protein, white blood count over 5, nitrates or leukocyte esterase positivePerformed By: #### UA #### [facility] ([facility]) [address] [place] [address] VIRLeukocyte esterase Test strip Ql (U)LargeAbnormalNegative Mer[facility] Health Defiance HospitalComforest health medical center on above:Order Comment: Clean catch, midstream if symptomatic. Urine culture if positive for bacteria, blood, protein, white blood count over 5, nitrates or leukocyte esterase positivePerformed By: #### UA #### [facility] ([facility]) [address] [place] [address]91 VIRMUCOUSPresentAbnormalNonCoshocton Regional Medical CenterComforest health medical center on above:Order Comment: Clean catch, midstream if symptomatic. Urine culture if positive for bacteria, blood, protein, white blood count over 5, nitrates or leukocyte esterase positivePerformed By: #### UA #### [facility] ([facility]) [address] [place] [address] VIRNitrite Ql (U)NegativeNormalNegBucyrus Community HospitalComforest health medical center on above:Order Comment: Clean catch, midstream if symptomatic. Urine culture if positive for bacteria, blood, protein, white blood count over 5, nitrates or leukocyte esterase positivePerformed By: #### UA #### [facility] ([facility]) [address] [place] [address] VIRPH,URINE6.2Fbxfng0.0-8.5PSelect Medical Specialty Hospital - Cleveland-FairhillComforest health medical center on above:Order Comment: Clean catch, midstream if symptomatic. Urine culture if positive for bacteria, blood, protein, white blood count over 5, nitrates or leukocyte esterase positivePerformed By: #### UA #### [facility] ([facility]) [address] [place] [address] VIRProtein Ql (U)30 mg/dLAbnormalNegativeMercy Health Defiance HospitalComforest health medical center on above:Order Comment: Clean catch, midstream if symptomatic. Urine culture if positive for bacteria, blood, protein, white blood count over 5, nitrates or leukocyte esterase positivePerformed By: #### UA #### [facility] ([facility]) [address] [place] [address] VIRR.B.HXQEG52Gsje2-6OrdWhbyqySelect Medical Specialty Hospital - Cleveland-FairhillComment on above:Order Comment: Clean catch, midstream if symptomatic. Urine culture if positive for bacteria, blood, protein, white blood count over 5, nitrates or leukocyte esterase positivePerformed By: #### UA #### [facility] ([facility]) [address] [place] [address] VIRSpecific gravity (U) [Rel density]1.527Wnlyqy5.003-1.035 ProMedicEisenhower Medical CenterComforest health medical center on above:Order Comment: Clean catch, midstream if symptomatic. Urine culture if positive for bacteria, blood, protein, white blood count over 5, nitrates or leukocyte esterase positivePerformed By: #### UA #### [facility] ([facility]) [address] [place] [address] VIRSQUAMOUS EPITHELIUM<^9Wgahoa8-2YziIiobfn[address] Comment on above:Order Comment: Clean catch, midstream if symptomatic. Urine culture if positive for bacteria, blood, protein, white blood count over 5, nitrates or leukocyte esterase positivePerformed By: #### UA #### [facility] ([facility]) [address] [place] [address] VIRTURBIDITYHazyAbnormalClearPSelect Medical Specialty Hospital - Cleveland-FairhillComforest health medical center on above:Order Comment: Clean catch, midstream if symptomatic. Urine culture if positive for bacteria, blood, protein, white blood count over 5, nitrates or leukocyte esterase positivePerformed By: #### UA #### [facility] ([facility]) [address] [place] [address] VIRUROBILINOGEN<1.1 eu/dLNormal<1.1 eu/dLProMedica Sutter California Pacific Medical CenterComment on above:Order Comment: Clean catch, midstream if symptomatic. Urine culture if positive for bacteria, blood, protein, white blood count over 5, nitrates or leukocyte esterase positivePerformed By: #### UA #### [facility] ([facility]) [address] [place] [address] VIRW.B.ZONGE876Lilk3-7FziFwspvdSelect Medical Specialty Hospital - Cleveland-FairhillComment on above:Order Comment: Clean catch, midstream if symptomatic. Urine culture if positive for bacteria, blood, protein, white blood count over 5, nitrates or leukocyte esterase positivePerformed By: #### UA #### [facility] ([facility]) [address] [place] [address] VIRWBC CLUMPSRareAbnormalNonCoshocton Regional Medical CenterComment on above:Order Comment: Clean catch, midstream if symptomatic. Urine culture if positive for bacteria, blood, protein, white blood count over 5, nitrates or leukocyte esterase positivePerformed By: #### UA #### [facility] ([facility]) [address] [place] [address] VIRURINE CULTUREon [id number] identified Cx Nom (U) CULTURE RESULTS ESCHERICHIA COLI >100,000 CFU/mL Escherichia coli [ S = SUSCEPTIBLE R = RESISTANT I = INTERMEDIATE S-DO = Susceptible-dose dependent NS = Non-suscceptible NO = No Interpretation ] Organism: ESCHERICHIA COLI Antibiotic Interpretation FABRICE Status Ampicillin R >=^32.0 F AMP/SULBACTAM I 16 F PIPERACIL/TAZOBACTAM S <=^4.0 F Cefazolin (non-urinary) S 2.0 F Cefazolin (urinary) S 2.0 F Ceftriaxone S <=^0.25 F Gentamicin S <=^1.0 F Ciprofloxacin R 2.0 F Levofloxacin I 1.0 F Nitrofurantoin S <=^16.0 F Trimethoprim + Sulfamethoxazole S <=^1.0 FSusceptibleMercy Health Defiance Hospital Comment on above:Performed By: #### UC #### [facility] ([facility]) [address] [place] [address] VIRBODY FLUID CELL COUNTon [id number] RBC [id number] /uLNormal [facility] HospitalComment on above:Order Comment: Reference values for this fluid type are undefined, as fluid accumulation is considered abnormal.Performed By: #### BFCT #### [facility] ([facility]) [address] [place] [address] VIRNUCLEATED CELL [id number] /uLNoPeoples HospitalComforest health medical center on above:Order Comment: Reference values for this fluid type are undefined, as fluid accumulation is considered abnormal.Performed By: #### BFCT #### [facility] ([facility]) [address] [place] [address] VIRPM FLUID CLARITYClearNoPeoples HospitalComforest health medical center on above:Order Comment: Reference values for this fluid type are undefined, as fluid accumulation is considered abnormal.Performed By: #### BFCT #### [facility] ([facility]) [address] [place] [address] VIRPM FLUID COLORYellowKettering Health DaytonComforest health medical center on above:Order Comment: Reference values for this fluid type are undefined, as fluid accumulation is considered abnormal.Performed By: #### BFCT #### [facility] ([facility]) [address] [place] [address] VIRIR THORACENTESIS W GUIDE LTon [id number] THORACENTESIS W GUIDE LTIR THORACENTESIS W GUIDE LT Indication: Left pleural effusion Comparison: None Informed Consent: The risks, benefits, and alternatives of the procedure were discussed with the patient. Verbal and written consent was obtained. Time-Out: Time-out performed to confirm the correct patient, procedure, and site. Findings: Medium pleural effusion. Preparation: A suitable skin site was identified in the posterior thorax. The patient was prepped and draped in usual sterile fashion. Site: Left chest. Local Anesthesia: 1% lidocaine . Catheter: 5-Tuvaluan catheter. Fluid: Volume: 250 mL. Character: Thick, frothy, cloudy, brownish. Disposition: Samples sent to the laboratory for analysis. Complications: None. Patient Disposition: Discharged from the department in stable condition. Transition Program Manager: Joyce Fuentes MD, Impression: Ultrasound-guided left thoracentesis. Finalized by Joyce Fuentes MD on 02/05/2025 10:05 AMNormalFirelands Regional Medical Center South CampusREFLEXED BODY FLUID CELL COUNT DIFFERENTIALon [id number] LYMPHOCYTE RELATIVE PERCENT BY MANUAL COUNT77 %NormalFirelands Regional Medical Center South CampusComment on above:Performed By: #### BFCT1 #### [facility] ([facility]) [address] [place] [address] VIRFLUID MACROPHAGE RELATIVE PERCENT BY MANUAL COUNT8 %Normal [facility] CampusComment on above:Performed By: #### BFCT1 #### [facility] ([facility]) [address] [place] [address] VIRFLUID MESOTHELIAL RELATIVE PERCENT BY MANUAL COUNT8 %Normal [facility] CampusComment on above:Performed By: #### BFCT1 #### [facility] ([facility]) [address] [place] [address] VIRFLUID NEUTROPHILS RELATIVE PERCENT BY MANUAL COUNT7 %Normal [facility] CampusComment on above:Performed By: #### BFCT1 #### [facility] ([facility]) [address] [place] [address] VIRTOTAL CELLS [id number] %NormalFirelands Regional Medical Center South CampusComment on above:Performed By: #### BFCT1 #### [facility] ([facility]) [address] [place] [address] VIRUS ABDOMEN LMTDon [id number] ABDOMEN LMTDUS ABDOMEN LMTD LIMITED ABDOMINAL ULTRASOUND INDICATION: Paracentesis. Ascites. Pelvic lesion. COMPARISON: CT, 01/29/2025. TECHNIQUE/FINDINGS: Patient presented for planned paracentesis. Ultrasound of the abdomen demonstrates only trace ascites, insufficient for safe sampling. The known complex cystic lesion in the pelvis was partially imaged. Findings were discussed with the patient and decision was made to defer. IMPRESSION: Trace ascites, insufficient for paracentesis. Discussed with patient. Procedure deferred at this time Finalized by Joyce Fuentes MD on 02/05/2025 9:18 AMNormalProGrand Lake Joint Township District Memorial HospitalAMMONIAon [id number] (P) [Moles/Vol]51 umol/LNormal [facility] Memorial HospitalComment on above:Performed By: #### FATEMEH #### [facility] ([id number]) [address] [place] [address] VIRAmmoniaon 19-82-5907Ylklwur (P) [Moles/Vol]51 umol/L18 - 72 umol/LProMedica [facility]ultman [facility]rville Hospital SystemInterpretation and review of laboratory results NormalWilkes-Barre General HospitalCA 125on 39-73-9023Ponsrv Ag 125 Qn530 [arb'U]/mLHighNINF - 35 U/mLUpper Valley Medical CenterComment on above: The method used for this test is Jose Cambria DXI chemiluminescent immunoassay. Values obtained by different assay methods cannot be used interchangeably. Interpretation and review of laboratory resultsAbnormalGood Shepherd Specialty HospitalCA [id number] U/mLHigh<=35ProSt. John Of God HospitalComment on above:Result Comment: The method used for this test is Jose Jb DXI chemiluminescent immunoassay. Values obtained by different assay methods cannot be used interchangeably.Performed By: #### C125 #### [facility] ([facility]) [address] [place] [address] VIRCT ABDOMEN AND PELVIS W CONTon [id number] ABDOMEN AND PELVIS W CONTCT ABDOMEN AND PELVIS W CONT *ADDENDUM*Complex cystic mass 17 x 16 x 15 cm, previously 13 x 10 x 9 cm on 03/21/2021. On review, no mass evident on remote CT abdomen pelvis 04/06/2006. Finalized by Harsha Hicks MD on 02/04/2025 4:11 PMNormalMercy Health Defiance HospitalLD LDH totalon 88-96-4219Lovbpgurqzvehi and review of laboratory results NormalUpper Valley Medical CenterLDH [Catalytic activity/Vol]162 U/L100 - 235 U/L Wilkes-Barre General HospitalLDHon 90-78-8850JDV829 U/LNormal 100-235[facility] District Memorial HospitalComment on above:Performed By: #### LDH #### [facility] ([facility]) [address] [place] [address] VIRPROTIME AND INRon 62-81-7126WKC7.4High0.9-1.2PMartin Memorial HospitalComment on above:Performed By: #### PINR #### [facility] ([facility]) [address] [place] [address] VIRPT Coag (PPP) [Time]16.3 sHigh9.8-13.2PMartin Memorial HospitalComment on above:Performed By: #### PINR #### [facility] ([facility]) [address] [place] [address] VIRProtime-INRon [id number] Coag (Platelet poor plasma or blood) [Relative time]1.4High0.9 - 1.2PSt. John of God HospitalInterpretation and review of laboratory resultsAbnormalUpper Valley Medical CenterPT Coag (PPP) [Time] 16.[address] [facility] SystemECG 12 leadon 01-30-2025 TRACEMASTERVAscension River District HospitalCB WITH AUTO DIFFERENTIALon 01-29-2025 BASOPHILS ABSOLUTE COUNT (10*3/UL) BY AUTOMATED COUNT0.0 10*3/uLNormal0.0-0.2 [facility] Defiance HospitalComment on above:Performed By: #### CBCA #### [facility] ([facility]) [address] [place] [address] [place] [address] VIRBASOPHILS RELATIVE PERCENT BY AUTOMATED COUNT0.4 %Normal [facility] Defiance HospitalComment on above:Performed By: #### CBCA #### [facility] ([facility]) [address] [place] [address] [place] [address] VIRCELLAVISION DIFFERENTIAL TYPEAUTOMATED DIFFERENTIALNormal [facility] HospitalComment on above:Performed By: #### CBCA #### [facility] ([facility]) [address] [place] [address] [place] [address] VIREosinophils (Bld) [#/Vol]0.0 10*3/uLNormal0.0-0.4[facility] Defiance HospitalComment on above:Performed By: #### CBCA #### [facility] ([address] [address] VIREOSINOPHILS RELATIVE PERCENT BY AUTOMATED COUNT0.7 %Normal [facility] Defiance HospitalComment on above:Performed By: #### CBCA #### [facility] ([address] [address] VIRErythrocyte distribution width (RBC) [Ratio]18.1 %High 11.5-15Mer[facility] Health Defiance HospitalComment on above:Performed By: #### CBCA #### [facility] ([address] [address] VIRHematocrit (Bld) [Volume fraction]28.0 %Gwv95-38WxpOvymgrMercy Health Defiance HospitalComment on above:Performed By: #### CBCA #### [facility] ([address] [address] VIRHemoglobin (Bld) [Mass/Vol]8.9 g/dLLow11.7-15.5PSelect Medical Specialty Hospital - Cleveland-FairhillComment on above:Performed By: #### CBCA #### [facility] ([address] [address] VIRLYMPHOCYTES ABSOLUTE COUNT (10*3/UL) BY AUTOMATED COUNT1.7 10*3/uLNormal1.0-3.5PSelect Medical Specialty Hospital - Cleveland-FairhillComment on above:Performed By: #### CBCA #### [facility] ([address] [place] [address] VIRLYMPHOCYTES RELATIVE PERCENT BY AUTOMATED COUNT30.5 %Normal [facility] Defiance HospitalComment on above:Performed By: #### CBCA #### [facility] ([address] [address] VIRMCH (RBC) [Entitic mass]23.8 wzAce33-97NqwZtelliMidland Memorial HospitalComment on above:Performed By: #### CBCA #### [facility] ([address] [place] [address] VIRMCHC (RBC) [Mass/Vol]31.8 g/mAAmx71-80BuiEooibqMidland Memorial HospitalComment on above:Performed By: #### CBCA #### [facility] ([address] [place] [address] VIRMCV (RBC) [Entitic vol]75 oJKsq55-963LtnIkepshMidland Memorial HospitalComment on above:Performed By: #### CBCA #### [facility] ([address] [address] VIRMONOCYTES ABSOLUTE COUNT (10*3/UL) BY AUTOMATED COUNT0.6 10*3/uLNormal0.0-0.9ProMidland Memorial HospitalComment on above:Performed By: #### CBCA #### [facility] ([address] [place] [address] VIRMONOCYTES RELATIVE PERCENT BY AUTOMATED COUNT9.8 %Normal [facility] Defiance HospitalComment on above:Performed By: #### CBCA #### [facility] ([address] [place] [address] VIRNEUTROPHILS ABSOLUTE COUNT BY AUTOMATED COUNT3.3 10*3/uL Normal1.5-6.6ProMidland Memorial HospitalComment on above:Performed By: #### CBCA #### [facility] ([address] [place] [address] VIRNEUTROPHILS RELATIVE PERCENT BY AUTOMATED COUNT58.6 %Normal [facility] Defiance HospitalComment on above:Performed By: #### CBCA #### [facility] ([address] [place] [address] VIRPlatelet mean volume (Bld) [Entitic vol]8.4 fLNormal7-12 [facility] Defiance HospitalComment on above:Performed By: #### CBCA #### [facility] ([address] [place] [address] VIRPlatelets (Bld) [#/Vol]212 10*3/bGOekdgw793-260QwyHouwzs Fremont HospitalComment on above:Performed By: #### CBCA #### [facility] ([address] [place] [address] VIRRBC COUNT3.76 X10E12/LLow3.8-5.2PSelect Medical Specialty Hospital - [facility] Comment on above:Performed By: #### CBCA #### [facility] ([address] [place] [address] VIRWBC (Bld) [#/Vol]5.6 10*3/uLNormal4-11Mer[facility] Defiance HospitalComment on above:Performed By: #### CBCA #### [facility] ([address] [place] [address] VIRCOMPREHENSIVE METABOLIC PANELon 63-45-5838Zekfxii [Mass/Vol]2.7 g/dLLow3.2-5.3PSelect Medical Specialty Hospital - Cleveland-FairhillComment on above:Performed By: #### CMP #### [facility] ([address] [place] [address] VIRALP [Catalytic activity/Vol]203 U/XKkwi77-897ZojVohdrjMidland Memorial HospitalComment on above:Performed By: #### CMP #### [facility] ([address] [place] [address] VIRALT [Catalytic activity/Vol]37 U/LHigh<=31PSelect Medical Specialty Hospital - Cleveland-FairhillComment on above:Performed By: #### CMP #### [facility] ([address] [place] [address] VIRAnion gap [Moles/Vol]6 mmol/LNormal5-15ProMidland Memorial HospitalComment on above:Performed By: #### CMP #### [facility] ([place] [address] [place] [address] VIRAST [Catalytic activity/Vol]103 U/LHigh<=41ProMidland Memorial HospitalComment on above:Performed By: #### CMP #### [facility] ([place] [address] [place] [address] VIRBilirubin [Mass/Vol]1.1 mg/dLNormal0.3-1.2PSelect Medical Specialty Hospital - Cleveland-FairhillComment on above:Performed By: #### CMP #### [facility] ([address] [place] [address] VIRCalcium [Mass/Vol]8.0 mg/dLLow8.5-10.5PSelect Medical Specialty Hospital - Cleveland-FairhillComment on above:Performed By: #### CMP #### [facility] ([address] [place] [place] [address] VIRChloride [Moles/Vol]106 mmol/KUxpvgo62-353GdaWuegbeMidland Memorial HospitalComment on above:Performed By: #### CMP #### [facility] ([place] [address] [place] [address] VIRCO2 [Moles/Vol]21 mmol/SQjk28-85FamVxbixrSelect Medical Specialty Hospital - [facility] Comment on above:Performed By: #### CMP #### [facility] ([place] [address] [place] [address] VIRCreatinine [Mass/Vol]1.11 mg/dLHigh0.40-1.00ProMidland Memorial HospitalComment on above:Result Comment: METHOD TRACEABLE TO IDMS STANDARDPerformed By: #### CMP #### [facility] ([place] [address] [place] [address] VIRGFR/1.73 sq M.predicted among non-blacks MDRD (S/P/Bld) [Vol rate/Area]53 mL/min/{1.73_m2}Low>=60ProMidland Memorial HospitalComment on above:Result Comment: eGFR not reported due to non-numeric value for Creatinine. Reported eGFR is based on the CKD-EPI 2020 equation that does not use a race coefficient.Performed By: #### CMP #### [facility] ([address] [place] [address] VIRGlucose [Mass/Vol]115 mg/uNZush01-25BcsNzqfsiMidland Memorial HospitalComment on above:Performed By: #### CMP #### [facility] ([address] [address] VIRPotassium [Moles/Vol]3.4 mmol/LLow3.5-5.0ProMidland Memorial HospitalComment on above:Performed By: #### CMP #### [facility] ([address] [address] VIRProtein [Mass/Vol]9.9 g/dLHigh6.0-8.0Mer[facility] Defiance HospitalComment on above:Performed By: #### CMP #### [address] [place] [address] VIRSodium [Moles/Vol]133 mmol/VUah191-869VtjBnawywMidland Memorial HospitalComment on above:Performed By: #### CMP #### [facility] ([address] [address] VIRUrea nitrogen [Mass/Vol]17 mg/dLNormal5-27ProMidland Memorial HospitalComment on above:Performed By: #### CMP #### [facility] ([address] [place] [address] VIRPOCT NURSING URINE MACROSCOPIC UAon 89-07-8420QYWCEELHP JACQUI NegativeNormalNegativeProNorth Mississippi Medical Center Wacissa HospitalComment on above:Performed By: #### NUM #### [facility] ([address] [address] VIRBLOOD/HGB NURNegativeNormalNegativeMercy Health Defiance HospitalComment on above:Performed By: #### NUM #### [facility] ([address] [address] VIRGLUCOSE NURNegativeNormalNegativeMercy Health Defiance Hospital Comment on above:Performed By: #### NUM #### [facility] ([address] [address] VIRKETONES NURTraceAbnoMercy Health St. Charles Hospital Comment on above:Performed By: #### NUM #### [facility] ([address] [address] VIRLEUKOCYTE ESTERASE NURNegativeNormalNegativeMercy Health Defiance HospitalComment on above:Performed By: #### NUM #### [facility] ([address] [address] VIRNITRITE NURNegativeNoatrium health pineville rehabilitation hospitalNegBucyrus Community Hospital Comment on above:Performed By: #### NUM #### [facility] ([address] [address] VIRPH NUR6.6Vrdsvg4.0, 6.0, 6.5, 7.0, 7.5, 8.0, 8.5, 5.5 [facility] HospitalComment on above:Performed By: #### NUM #### [facility] ([address] [place] [address] VIRPROTEIN NURNegativeNoalNegativeMercy Health Defiance Hospital Comment on above:Performed By: #### NUM #### [facility] ([address] [place] [address] VIRSPECIFIC GRAVITY NUR1.905Tfphod5.010, 1.015, 1.020, 1.025 [facility] HospitalComment on above:Performed By: #### NUM #### [facility] ([facility]) [address] [place] [address] VIRUROBILINOGEN NUR1.0 E.U./dLNormalProMedica [facility] Comment on above:Performed By: #### NUM #### [facility] ([facility]) [address] [place] [address] VIRAlbumin [Mass/volume] in Serum or PlasmaOrdered By: Emily Robles on 34-03-0484Fdeaycy [Mass/Vol]2.7 g/dLAbnormal2.9-4.4FMercy Health Springfield Regional Medical CenterBasophils Auto (Bld) [#/Vol]Ordered By: Emily Robles on 50-62-6542Zwsdcgynp (Bld) [#/Vol]0.0 10 3/uL0.0-0.1FMercy Health Springfield Regional Medical CenterBasophils/100 WBC Auto (Bld)Ordered By: Emily Robles on 01-22-2025 Basophils/100 WBC (Bld)0.4 %0.2-2.0[facility] Eosinophils/100 WBC Auto (Bld)Ordered By: Emilyscottie Robles on 01-22-2025 Eosinophils/100 WBC (Bld)0.5 %Low0.9-7.0[facility] Erythrocyte distribution width Auto (RBC) [Ratio]Ordered By: Emily Margaret on 10-15-0921Nzxuvmpzbaw distribution width (RBC) [Ratio]17.6 %High11.0-15.0 [facility] Medical CenterGlobulin Calc (S) [Mass/Vol]Ordered By: Emily Robles on 19-44-9959Cavcvgec (S) [Mass/Vol]8.8 g/dLUniversity Hospitals Tripoint Medical CenterGlomerular filtration rate (GFR) estimation in non- AmericanOrdered By: Emily Robles on 36-03-6860IBE/1.73 sq M.predicted among non-blacks MDRD (S/P/Bld) [Vol rate/Area]49 mL/min/{1.73_m2}Low>=60 mL/min/1.73m 2FMercy Health Springfield Regional Medical CenterHematocrit Auto (Bld) [Volume fraction]Ordered By: Emily Robles on 39-61-8265Vctsooabzj (Bld) [Volume fraction]30.1 %Low36.0-48.0 [facility] Medical CenterHemoglobin [Mass/volume] in BloodOrdered By: Emily Robles on 01-01-6910Ldbzxubtdy (Bld) [Mass/Vol]9.4 g/dLLow12.0-16.0 [facility] Medical CenterIgA [Mass/volume] in Serum or PlasmaOrdered By: Emily Robles on 59-30-3975CtZ [Mass/Vol]368 mg/xB16-214ZmwgchqecUniversity Hospitals Tripoint Medical CenterIgG [Mass/volume] in Serum or PlasmaOrdered By: Emily Margaret on 80-87-4812ZoS [Mass/Vol]6115 mg/yJQabbpkea311-4099DcbmzyvsgUniversity Hospitals Tripoint Medical CenterComment on above:Results confirmed ondilution.IgM [Mass/volume] in Serum or PlasmaOrdered By: Emily Robles on 80-79-4963QcE [Mass/Vol]187 mg/uY09-159 [facility] Medical CenterImmunoglobulin light chains.kappa.free [Mass/volume] in SerumOrdered By: Emily Robles on 46-50-2185Ypnysnefkrouyl light chains.kappa.free (S) [Mass/Vol]135.4 mg/LAbnormal3.3-19.4FMercy Health Springfield Regional Medical CenterImmunoglobulin light chains.kappa.free/Immunoglobulin light chains.lambda.free [MassOrdered By: Emily Robles on 01-22-2025 Immunoglobulin light chains.kappa.free/Immunoglobulin light chains.lambda.free (S) [Mass ratio]0.730.26-1.65[facility] Medical CenterComment on above: Performed at: [address] [id number] Director: Cm Purcell PhD, Phone: [phone] light chains.lambda.free [Mass/volume] in Serum or PlasmaOrdered By: Emily Margaret on 09-39-7811Oquhzwpqnyrbje light chains.lambda.free [Mass/Vol]184.8 mg/LAbnormal 5.7-26.3FMercy Health Springfield Regional Medical CenterIron binding capacity [Mass/volume] in Serum or PlasmaOrdered By: Emily Margaret on 26-01-3871Lsvm binding capacity [Mass/Vol]362.0 ug/dL250.0-450.0[facility] Medical CenterIron saturation [Mass Fraction] in Serum or PlasmaOrdered By: Emily Margaret on 00-59-1741Bxur saturation [Mass fraction]9.7 %[facility] CenterLaboratory - Chemistry and Chemistry - challengeOrdered By: Emily Margaret on 01-22-2025 Albumin [Mass/Vol]2.9 g/dLLow3.4-5.0[facility] Medical CenterALP [Catalytic activity/Vol]229 U/GNxip85-875MxwhdvbaxUniversity Hospitals Tripoint Medical CenterALT [Catalytic activity/Vol]57 U/F88-81CzygtkjlfUniversity Hospitals Tripoint Medical CenterAST [Catalytic activity/Vol]118 U/OPkie88-07BeznwqackUniversity Hospitals Tripoint Medical Center Bilirubin [Mass/Vol]1.1 mg/dLHigh0.2-1.0[facility] Medical CenterCalcium [Mass/Vol]8.0 mg/dLLow8.5-10.1FMercy Health Springfield Regional Medical CenterChloride [Moles/Vol]110 mmol/TVrcs73-760SfgbizlzqUniversity Hospitals Tripoint Medical CenterCO2 [Moles/Vol] 20.9 mmol/LLow21.0-32.0[facility] Medical CenterCobalamin (Vitamin B12) [Mass/Vol]560 pg/gB258-3513BibhosnskUniversity Hospitals Tripoint Medical CenterComment on above: Performed at: - [facility] [address] [id number] Director: Cm Purcell PhD, Phone: [phone] [Mass/Vol]1.09 mg/dLHigh0.55-1.02[facility] Medical CenterFerritin [Mass/Vol]28.0 ng/mL 8.0-252.0[facility] Medical CenterGFR/1.73 sq M.predicted MDRD (S/P/Bld) [Vol rate/Area]60 mL/min/{1.73_m2}>=60 mL/min/1.73m 2FMercy Health Springfield Regional Medical CenterGlucose [Mass/Vol]118 mg/fLWcjj76-061EutwbsvviUniversity Hospitals Tripoint Medical CenterIron [Mass/Vol]35.0 ug/dLLow50.0-170.0[facility] Medical CenterPotassium [Moles/Vol]3.5 mmol/L3.5-5.1FMercy Health Springfield Regional Medical CenterProtein [Mass/Vol] 11.7 g/dLHigh6.4-8.2FLake County Memorial Hospital - Westodium [Moles/Vol]139 mmol/Z418-047VodfmjixiUniversity Hospitals Tripoint Medical CenterUrea nitrogen [Mass/Vol]16.0 mg/dL 7.0-18.0[facility] Medical CenterUrea nitrogen/Creatinine [Mass ratio] 14.7 mg/mgUniversity Hospitals Tripoint Medical CenterLaboratory - Hematology and Cell countsOrdered By: Emily Robles on 87-38-9677GPX (Bld) [Velocity]103 mm/hHigh <=30[facility] Medical CenterImmature granulocytes/100 WBC (Bld)0.2 % 0.0-0.5FMercy Health Springfield Regional Medical CenterLeukocytes [#/volume] corrected for nucleated erythrocytes in Blood by Automated counOrdered By: Emily Robles on 33-39-0394WSJ corrected for nucl RBC Auto (Bld) [#/Vol]5.5 10 3/uL4.0-11.0 [facility] Medical CenterLymphocytes Auto (Bld) [#/Vol]Ordered By: Emily Robles on 70-00-7254Rrdsicxggpn (Bld) [#/Vol]1.5 10 3/uL1.2-3.8[facility] Medical CenterLymphocytes/100 WBC Auto (Bld)Ordered By: Emily Robles on 18-84-2252Viqrmcgjwzc/100 WBC (Bld)27.0 %20.5-60.0[facility] CenterH Auto (RBC) [Entitic mass]Ordered By: Emily Margaret on 46-24-0898CUI (RBC) [Entitic mass]24.5 pgLow26.7-34.0[facility] Medical CenterMCHC Auto (RBC) [Mass/Vol]Ordered By: Emily Margaret on 64-73-5815YJSY (RBC) [Mass/Vol]31.2 g/dL29.9-35.2FMercy Health Springfield Regional Medical CenterMCV Auto (RBC) [Entitic vol]Ordered By: Emily Margaret on 72-64-5593YBC (RBC) [Entitic vol]78.4 fLLow81.0-99.0[facility] Medical CenterMonocytes Auto (Bld) [#/Vol] Ordered By: Emily Margaret on 24-46-7122Yxrvkhlib (Bld) [#/Vol]0.4 10 3/uL 0.3-0.8[facility] Medical CenterMonocytes/100 WBC Auto (Bld)Ordered By: Emily Margaret on 01-60-0871Imvunrfgo/100 WBC (Bld)6.7 %1.7-12.0[facility] Medical CenterNeutrophils Auto (Bld) [#/Vol]Ordered By: Emily Margaret on 83-22-0668Tzeexrswfrt (Bld) [#/Vol]3.6 10 3/uL1.4-6.5FMercy Health Springfield Regional Medical CenterNeutrophils/100 WBC Auto (Bld)Ordered By: Emily Margaret on 88-06-9536Kftxodgajnz/100 WBC (Bld)65.2 %43.0-75.0[facility] CenterNo Panel InformationOrdered By: Emily Robles on 01-26-2003J-Reactive Protein, Quantitative3.40 mg/dLHigh<=0.50[facility] Eosinophils # (Auto)0.0 10 3/uL0.0-0.7FMercy Health Springfield Regional Medical CenterImmature Granulocyte # (Auto)0.01 10 3/uL0.00-0.03[facility] Protein Electrophoresis M-SpikeNot Observed g/dLNot ObservedUniversity Hospitals Tripoint Medical CenterProtein Electrophoresis NoteComment.[facility] Medical CenterComment on above:Protein electrophoresis scan will follow via computer,mail, or bridge builder delivery.Pathology Request for Lab Corpon 01-22-2025 Pathology Request for Lab CorpNoCritical access hospital Physician GroupComment on above:Result Comment: See report. Scanned copy available in EMR. PERFORMED BY: [place] [address] PATHOLOGIST SPECIAL EDUCATION PARA PROFESSIONAL ÁNGEL LUNA M.D.Performed By: #### CRP, JOLANTA, TSH3, ESR #### [address] #### HIV SCREEN, HBSAB, HAAB, ALPHA PHEN, MITOM2, IGG, MOHINI, HCBIGM, CELIAC, HBCAB, HEMOCHROM, HBSAG, L-K MICRO, PETH PROFILE, CERULOP, HCV RX PCR, HAABT, SMAB #### [facility] ,Platelet mean volume Auto (Bld) [Entitic vol]Ordered By: Emily Robles on 33-83-3144Gdscfmvy mean volume (Bld) [Entitic vol]10.2 fL9.5-13.5FMercy Health Springfield Regional Medical CenterPlatelets Auto (Bld) [#/Vol]Ordered By: Emilykayley Robles on 19-59-5399Kisioyvwz (Bld) [#/Vol]240 10 3/pL433-181QwbbxxcyfUniversity Hospitals [facility] CenterProtein [Mass/volume] in Serum or PlasmaOrdered By: Emily Margaret on 13-70-7746Enttjbx [Mass/Vol]10.5 g/dLAbnormal6.0-8.5FMercy Health Springfield Regional Medical CenterRBC Auto (Bld) [#/Vol]Ordered By: Emily Margaret on 17-28-5576ZNF (Bld) [#/Vol]3.84 10 6/uLLow4.20-5.40[facility] Centererum globulin measurement (mass/volume)Ordered By: Emily Robles on 75-73-5300Gzrsstgg (S) [Mass/Vol]7.8 g/dLAbnormal2.2-3.9[facility] Medical Centererum or plasma albumin/globulin mass ratioOrdered By: Emily Robles on 01-22-2025 Albumin/Globulin [Mass ratio]0.3 {ratio}[facility] Albumin/Globulin [Mass ratio]0.4 {ratio}Abnormal0.7-1.7FLake [facility] Westerum or plasma alpha 1 globulin measurement by electrophoresis (mass/volume)Ordered By: Emily Robles on 93-79-2543Nmuka 1 globulin Elph [Mass/Vol]0.6 g/dLAbnormal0.0-0.4FLake County [facility] Hospital - Westerum or plasma alpha 2 globulin measurement by electrophoresis (mass/volume)Ordered By: Emily Robles on 62-02-6590Dbgsh 2 globulin Elph [Mass/Vol]0.8 g/dL0.4-1.[address] [facility] Medical Centererum or plasma anion gap determinationOrdered By: Emily Robles on 80-93-4699Idaso gap [Moles/Vol]11.6 mmol/LFLake County Memorial Hospital - Westerum or plasma beta globulin measurement by electrophoresis (mass/volume)Ordered By: Emily Robles on 82-06-1812Yegi globulin Elph [Mass/Vol]1.7 g/dLAbnormal0.7-1.3FMercy Health Springfield Regional Medical Center Serum or plasma gamma globulin measurement by electrophoresis (mass/volume) Ordered By: Emily Robles on 43-88-4645Zylqi globulin Elph [Mass/Vol]4.7 g/dL Abnormal0.4-1.8[facility] Medical Centererum or plasma immunoelectrophoresis interpretationOrdered By: Emily Robles on 01-22-2025 Interpretation IEP [Interp]Comment.[facility] CenterComment on above:No monoclonality detected.Basophils Auto (Bld) [#/Vol]Ordered By: Emily Robles on 54-82-2602Xihtvykhw (Bld) [#/Vol]0.0 10 3/uL0.0-0.1FMercy Health Springfield Regional Medical CenterBasophils/100 WBC Auto (Bld)Ordered By: Emily Robles on 73-15-9613Pedpwwtln/100 WBC (Bld)0.2 %0.2-2.0[facility] Eosinophils/100 WBC Auto (Bld)Ordered By: Emilykayley Robles on 01-01-2025 Eosinophils/100 WBC (Bld)0.6 %Low0.9-7.0[facility] Erythrocyte distribution width Auto (RBC) [Ratio]Ordered By: Emily Robles on 68-79-6289Gmcsanoeada distribution width (RBC) [Ratio]16.6 %High11.0-15.0 [facility] CenterGlobulin Calc (S) [Mass/Vol]Ordered By: Emily Robles on 16-13-7194Xdywtcck (S) [Mass/Vol]8.8 g/dLUniversity Hospitals Tripoint Medical CenterGlomerular filtration rate (GFR) estimation in non- AmericanOrdered By: Emily Robles on 56-42-4280PNI/1.73 sq M.predicted among non-blacks MDRD (S/P/Bld) [Vol rate/Area]49 mL/min/{1.73_m2}Low>=60 mL/min/1.73m 2FMercy Health Springfield Regional Medical CenterHematocrit Auto (Bld) [Volume fraction]Ordered By: Emily Robles on 54-97-2196Mjvjrqelee (Bld) [Volume fraction]32.2 %Low36.0-48.0 [facility] CenterHemoglobin [Mass/volume] in BloodOrdered By: Emily Robles on 63-91-6673Zwrhriwung (Bld) [Mass/Vol]10.1 g/dLLow12.0-16.0 [facility] CenterLaboratory - Chemistry and Chemistry - challengeOrdered By: Emily Robles on 55-19-6414Fcbywmm [Mass/Vol]3.1 g/dLLow 3.4-5.0[facility] CenterALP [Catalytic activity/Vol]209 U/LHigh 46-116[facility] CenterALT [Catalytic activity/Vol]52 U/L14-59 [facility] CenterAST [Catalytic activity/Vol]121 U/ANywj36-50 [facility] CenterBilirubin [Mass/Vol]1.0 mg/dL0.2-1.0[facility] CenterCalcium [Mass/Vol]8.4 mg/dLLow8.5-10.1FMercy Health Springfield Regional Medical CenterChloride [Moles/Vol]101 mmol/L29-131CpvpuzditUniversity Hospitals Tri[facility] Medical CenterCO2 [Moles/Vol]26.0 mmol/L21.0-32.0[facility] Creatinine [Mass/Vol]1.09 mg/dLHigh0.55-1.02[facility] GFR/1.73 sq M.predicted MDRD (S/P/Bld) [Vol rate/Area]60 mL/min/{1.73_m2}>=60 mL/min/1.73m 2FMercy Health Springfield Regional Medical CenterGlucose [Mass/Vol]102 mg/uS05-338 [facility] CenterPotassium [Moles/Vol]3.9 mmol/L3.5-5.1FMercy Health Springfield Regional Medical CenterProtein [Mass/Vol]11.9 g/dLHigh6.4-8.2FLake County Memorial Hospital - Westodium [Moles/Vol]133 mmol/FNuk176-159WfvgqwzciUniversity Hospitals [facility] Medical CenterUrea nitrogen [Mass/Vol]14.0 mg/dL7.0-18.0[facility] CenterUrea nitrogen/Creatinine [Mass ratio]12.8 mg/mgUniversity Hospitals Tri[facility] Medical CenterLaboratory - Hematology and Cell countsOrdered By: Emily Robles on 81-70-1394Aeypbgdo granulocytes/100 WBC (Bld)0.2 %0.0-0.5FMercy Health Springfield Regional Medical CenterLeukocytes [#/volume] corrected for nucleated erythrocytes in Blood by Automated counOrdered By: Emily Robles on 73-69-6313NFR corrected for nucl RBC Auto (Bld) [#/Vol]6.6 10 3/uL4.0-11.0[facility] Lymphocytes Auto (Bld) [#/Vol]Ordered By: Emily Robles on 01-01-2025 Lymphocytes (Bld) [#/Vol]1.8 10 3/uL1.2-3.8[facility] Lymphocytes/100 WBC Auto (Bld)Ordered By: Emily Margaret on 01-01-2025 Lymphocytes/100 WBC (Bld)27.1 %20.5-60.0[facility] CenterH Auto (RBC) [Entitic mass]Ordered By: Emily Margaret on 25-81-1995VYP (RBC) [Entitic mass]24.9 pgLow26.7-34.0[facility] CenterMCHC Auto (RBC) [Mass/Vol]Ordered By: Emily Margaret on 50-87-0921DLHX (RBC) [Mass/Vol] 31.4 g/dL29.9-35.2FMercy Health Springfield Regional Medical CenterMCV Auto (RBC) [Entitic vol] Ordered By: Emily Margaret on 91-62-0076YFX (RBC) [Entitic vol]79.5 fLLow 81.0-99.0[facility] CenterMonocytes Auto (Bld) [#/Vol]Ordered By: Emily Margaret on 94-03-7634Nkytpnges (Bld) [#/Vol]0.5 10 3/uL0.3-0.8 [facility] CenterMonocytes/100 WBC Auto (Bld)Ordered By: Emily Margaret on 58-08-3245Fgduwnkgm/100 WBC (Bld)6.8 %1.7-12.0[facility] CenterNeutrophils Auto (Bld) [#/Vol]Ordered By: Emily Margaret on 07-13-2440Zcvtmangdsk (Bld) [#/Vol]4.3 10 3/uL1.4-6.5FMercy Health Springfield Regional Medical CenterNeutrophils/100 WBC Auto (Bld)Ordered By: Emily Margaret on 01-01-2025 Neutrophils/100 WBC (Bld)65.1 %43.0-75.0[facility] CenterNo Panel InformationOrdered By: Emily Margaret on 84-25-5407Tqkpkcymugx # (Auto)0.0 10 3/uL0.0-0.7FMercy Health Springfield Regional Medical CenterImmature Granulocyte # (Auto) 0.01 10 3/uL0.00-0.03[facility] CenterPlatelet mean volume Auto (Bld) [Entitic vol]Ordered By: Emily Robles on 24-41-5618Chopxdfr mean volume (Bld) [Entitic vol]10.0 fL9.5-13.5FMercy Health Springfield Regional Medical CenterPlatelets Auto (Bld) [#/Vol]Ordered By: Emily Margaret on 13-38-9531Modqlmpzx (Bld) [#/Vol]240 10 3/iF254-484IykbqlrwfUniversity Hospitals Tripoint Medical CenterRBC Auto (Bld) [#/Vol] Ordered By: Emily Robles on 99-41-6672JGT (Bld) [#/Vol]4.05 10 6/uLLow 4.20-5.40[facility] Medical Centererum or plasma albumin/globulin mass ratioOrdered By: Emily Robles on 51-15-9800Dipzoai/Globulin [Mass ratio]0.4 {ratio}[facility] Centererum or plasma siocl-3-mzurngaoepm tumor marker measurement (mass/volume)Ordered By: Emily Robles on 01-01-2025 AFP.tumor marker [Mass/Vol]3.3 ng/mL0.0-9.2FMercy Health Springfield Regional [facility] Center Comment on above:[employer] Electrochemiluminescence Immunoassay(ECLIA)Values obtained with different assay methods or kits cannotbe used interchangeably. Results cannot be interpreted asabsolute evidence of the presence or absence of malignantdisease.This test is not interpretable in females.Performed at: [facility] Lab[address] [id number] Director: Cm Purcell PhD, Phone: [phone] or plasma anion gap determinationOrdered By: Emily Robles on 95-31-8401Vlyzn gap [Moles/Vol]9.9 mmol/LFLake County Memorial Hospital - Westerum or plasma cancer antigen 19-9 measurement (units/volume)Ordered By: Emily Robles on 01-01-2025 Cancer Ag 19-9 Qn96 [arb'U]/mLAbnormal0-35[facility] Comment on above:[employer] Electrochemiluminescence Immunoassay(ECLIA)Values obtained with different assay methods or kits cannotbe used interchangeably. Results cannot be interpreted asabsolute evidence of the presence or absence of malignantdisease.Performed at: [facility] GraphScienceUniversity of [facility] [place], [place] [id number] Director: Cm Purcell PhD, Phone: [phone] Antinuclear Antibodieson 60-67-5209Hgieoqqumom Abs, IFAPositive Critically abnormal.The [facility] Physician GroupComment on above:Result Comment: Negative <1:80 Borderline 1:80 Positive >1:80 Speckled cytoplasmic fluorescence is present. The antibodies noted in this pattern may be associated with, but not restricted to, primary biliary cirrhosis (PBC), polymyositis and dermatomyositis (PM/DM), and/or systemic lupus erythematosus (SLE).Performed By: #### CDT #### [facility] [address] [place] [address] #### CALPROTECT #### [facility] ,Homogeneous Pattern1:640Normal.The [facility] Physician GroupComment on above: Result Comment: ICAP nomenclature: [id number] By: #### CDT #### [facility] [address] [place] [address] #### CALPROTECT #### [facility] ,Note 1CommentNormal.The [facility] Physician GroupComment on above:Result Comment: Pattern Potential Disease Association Homogeneous Systemic Lupus Erythematosus, Drug Induced Systemic Lupus Erythematosus, Chronic Autoimmune hepatitis, Juvenile Idiopathic Arthritis Speckled Sjogren Syndrome, Systemic Lupus Erythematosus, Subacute Cutaneous Lupus, Lupus, Congenital Heart Block, Mixed Connective Tissue Disease, Scleroderma-diffuse, Scleroderma-Autoimmune Myositis Overlap Syndrome, Systemic Lupus Xruivrqxszvnp-Cudpagzdnhx-Hnjnxcdpct Myositis Overlap Syndrome, Systemic Autoimmune Rheumatic Disease, [...] Cytopenias, Linear Scleroderma, Antiphospholipid Syndrome Performed at: [facility] [address] [place] [id number] Picker And Packer: Cm Purcell PhD, Phone: [phone] By: #### CDT #### [address] [place] [address] [place] #### CALPROTECT #### [facility] ,Actin smooth muscle IgG Ab [Units/volume] in SerumOrdered By: Imad Asaad on 52-27-6384Ivogn smooth muscle IgG Qn (S)124 UnitsHigh0-19[facility] CenterComment on above:Negative 0 - 19 Weak positive 20 - 30 Moderate to strong positive >30 Actin Antibodies are foundin 52-85% of patients with autoimmune hepatitis or chronic active hepatitis and in 22% of patients with primary biliary cirrhosis.Zffcb-2-Sxgbwrbgyka Phenotypeon 99-12-1731Napip 1 Anti-Llebubv184 mg/kHGtidpz165-810Vtb [facility] Physician GroupComment on above: Performed By: #### CDT #### [facility] [address] [place] [address] #### CALPROTECT #### [facility] ,Phenotype (P1)MZNormal.The [facility] Physician GroupComment on above:Result Comment: MM Phenotype is considered to be normal , producing normal serum levels of uzemg-8-lhurakda inhibitor and not associated with clinical disease. [...] Ranges used to confirm phenotype. Performed at: [facility] Labco[address] [id number] Picker And Packer: Cm Purcell PhD, Phone: [phone] Performed at: - [facility] [address] [id number] Picker [employer] Packer: Jacoby Truong MD, Phone: [phone] By: #### CDT #### [facility] [address] #### CALPROTECT #### [facility] ,Blood or tissue HFE gene mutations identification by molecular genetics method Ordered By: Dimple Caraballo on 72-76-9108HYY gene targeted mutation analysis [employer] Nom (Bld/Tiss)Comment.[facility] CenterComment on above: Result:c.845G>A (p.Szq339Pgc) - Not Detectedc.187C>G (p.Nbh82Axn) - Not Detectedc.193A>T (p.Hbm45Pai) - Not DetectedNot associated with increased risk to develop clinicalsymptoms of Hereditary Hemochromatosis. In symptomaticindividuals, other causes of iron overload should beevaluated. See Additional Information and Comments.Additional Clinical Information:Hereditary hemochromatosis (HFErelated) [...] recommended for patientswho are homozygous for c.845G>A (p.Bfl460Tis) and have yetto experience clinical symptoms.Comments:The most common HFE variants associated with hereditaryhemochromatosis are c.845G>A (p.Ixj408Bwi), c.187C>G(p.Ghr77Opw), c.193A>T (p.Vrf77Zwm). While patientshomozygous for c.845G>A (p.Utz810Zds) are the most likelyto present clinical symptoms, less than 10% developclinically significant iron overload with tissue and organdamage.Genetic counseling is recommended to discuss the potentialclinical implications of positive results, as well asrecommendations for testing family members.Genetic Coordinators are available for health careproviders to discuss results at [phone]).Test Details:Three variants analyzed:c.845G>A (p.Mku447Bym), commonly referred to as C282Yc.187C>G (p.Uda93Jta), commonly referred to as H63Dc.193A>T (p.Iwy28Atc), commonly referred to etL77ALsvyazr/Limitations:DNA Analysis of the HFE gene (NM_000410.4) was [...] was developed and its performancecharacteristics determined by [employer]. It has not beencleared or approved by the Food and Drug Administration.References:Rogerio BR, Maximilian PC, Mushtaq KV, Segundo LW, Chay ;[employer] Liver Diseases.Diagnosis and management of hemochromatosis: 2011 practiceguideline by the [place] Association for the Study ofLiver Diseases. Hepatology. 2010;54(1):328-43. doi:10.1002/hep.99516. PMID: 77988854; PMCID: CHC7955062.Sameera G, Kylah P, Lisa DW, Pierre H, Garfield O,Rafa S, Nathen I, Rodney M, Darren S. [facility] best practiceguidelines for the molecular genetic diagnosis ofhereditary hemochromatosis (HH). Eur J Hum Blanca. 2016Ap r;24(4):479-95. doi: 10.1038/ejhg.2015.128. Epub 2014. PMID: 78979767; PMCID: [id number].C reactive protein [Mass/volume] in Serum or PlasmaOrdered By: Dimple Caraballo on 74-56-5690PZN [Mass/Vol]3.2 mg/dLHigh0.0-0.5FMercy Health Springfield Regional Medical CenterC-Reactive Proteinon 25-89-1143M-Reactive Protein3.2 mg/dLHigh 0.0-0.5The [facility] Physician GroupComment on above:Performed By: #### CRP, JOLANTA, TSH3, ESR #### [address] #### HIV SCREEN, HBSAB, HAAB, ALPHA PHEN, MITOM2, IGG, MOHINI, HCBIGM, CELIAC, HBCAB, HEMOCHROM, HBSAG, L-K MICRO, PETH PROFILE, CERULOP, HCV RX PCR, HAABT, SMAB #### [facility] ,Calprotectin [Mass/mass] in StoolOrdered By: Dimple Caraballo on 12-28-2024 Calprotectin (Stl) [Mass/Mass]62 ug/g0-120[facility] Comment on above:Concentration Interpretation Follow-Up< 5 - 50 ug/g Normal None>50 -120 ug/g Borderline Re-evaluate in 4-6 weeks >120 ug/g Abnormal Repeat as clinically indicatedPerformed at: [facility] [facility] LabFunky Moves[address] [id number] Director: Jacoby Truong MD, Phone: [phone] Calprotectin, Fecalon 10-09-5589Cbxzpglhuffn, Pqorh05Syqykn0-320Vwi [facility] Physician GroupComment on above:Result Comment: Concentration Interpretation Follow-Up < 5 - 50 ug/g Normal None >50 -120 ug/g Borderline Re-evaluate in 4-6 weeks >120 ug/g Abnormal Repeat as clinically indicated Performed at: - Lab[address] [id number] Picker And Packer: Jacoby Truong MD, Phone: [phone] PERFORMED BY: [place] [address] PATHOLOGIST SPECIAL EDUCATION PARA PROFESSIONAL ÁNGEL LUNA M.D.Performed By: #### CDT #### [facility] [address] [place] [address] [place] #### CALPROTECT #### [facility] ,Celiacon 17-76-0587Owhtiugtqu Gliadin Abs, XaB3Euhlqw2-81Anj [facility] Physician GroupComment on above:Result Comment: Negative 0 - 19 Weak Positive 20 - 30 Moderate to Strong Positive >30Performed By: #### CDT #### [facility] [address] [place] [address] [place] #### CALPROTECT #### [facility] ,Deamidated Gliadin Abs, OkP9Kvzdyn7-50Sab [facility] Physician GroupComment on above:Result Comment: Negative 0 - 19 Weak Positive 20 - 30 Moderate to Strong Positive >30Performed By: #### CDT #### [place] [address] [place] #### CALPROTECT #### [facility] ,Endomysial Antibody IgANegativeNormalNegativeThe [facility] Comment on above:Performed By: #### CDT #### [facility] [address] [place] [address] [place] #### CALPROTECT #### [facility] ,Immunoglobulin A, Qn, Kyepd748 mg/tANhjvkj35-333Vsb [facility] Comment on above:Result Comment: Performed at: [address] [id number] Picker And Packer: Cm Purcell PhD, Phone: [phone] By: #### CDT #### [facility] [address] [place] [address] [place] #### CALPROTECT #### [facility] ,T-Transglutaminase (tTG) IgA<1Dhssfg3-3Blu [facility] Physician GroupComment on above:Result Comment: Negative 0 - 3 Weak Positive 4 - 10 Positive >10 Tissue Transglutaminase (tTG) has been identified as the endomysial antigen. Studies have demonstr- ated that endomysial IgA antibodies have over 99% specificity for gluten sensitive enteropathy.Performed By: #### CDT #### [place] [address] [place] #### CALPROTECT #### [facility] ,T-Transglutaminase (tTG) ZpR21Xbidcl9-9Eij [facility] Physician GroupComment on above:Result Comment: Negative 0 - 5 Weak Positive 6 - 9 Positive >9Performed By: #### CDT #### [place] [address] [place] #### CALPROTECT #### [facility] ,Ceruloplasminon 61-98-3133Nsffyznsewzss46.1 mg/bODbvqes84.0-39.0The [facility] Physician GroupComment on above:Result Comment: Performed at: [place] [id number] Picker And Packer: Cm Purcell PhD, Phone: [phone] PERFORMED BY: [place] [address] PATHOLOGIST SPECIAL EDUCATION PARA PROFESSIONAL ÁNGEL LUNA M.D.Performed By: #### CDT #### [address] #### CALPROTECT #### [facility] ,Clostridioides difficile toxin B tcdB gene [Presence] in Stool by PARRIS with probe deteOrdered By: Dimple Caraballo on 12-28-2024. difficile toxin B tcdB gene PARRIS+probe Ql (Stl)NegativeNegativeUniversity Hospitals Tripoint Medical CenterComment on above:Testing performed by RT-PCRClostridium Difficileon 58-21-9265Lctrbeqsevp DifficileNegativeNormalNegativeThe [facility] Physician [facility] HospitalComment on above: Result Comment: Testing performed by RT-PCR PERFORMED BY: [place] [address] PATHOLOGIST SPECIAL EDUCATION PARA PROFESSIONAL ÁNGEL S JEREMY M.D.Performed By: #### CDT #### [address] #### CALPROTECT #### [facility] ,Erythrocyte Sedimentation Rateon 71-83-5965VRU (Bld) [Velocity]130 mm/hHigh0-29 [facility] Physician GroupComment on above:Result Comment: PERFORMED BY: [place] [address] PATHOLOGIST SPECIAL EDUCATION PARA PROFESSIONAL ÁNGEL LUNA M.D.Performed By: #### CRP, JOLANTA, TSH3, ESR #### [address] #### HIV SCREEN, HBSAB, HAAB, ALPHA PHEN, MITOM2, IGG, MOHINI, HCBIGM, CELIAC, HBCAB, HEMOCHROM, HBSAG, L-K MICRO, PETH PROFILE, CERULOP, HCV RX PCR, HAABT, SMAB #### [facility] ,Erythrocyte sedimentation rate by Photometric methodOrdered By: Imad Asaad on 00-84-0247FTY Photometric method (Bld) [Velocity]130 mm/hrHigh0-29[facility] CenterFerritin [Mass/volume] in Serum or PlasmaOrdered By: Imad Asaad on 38-33-8720Jdxkmshu [Mass/Vol]17.9 ng/bUNlxhjj05.0-306.8[facility] CenterComment on above:Performed By: #### CRP, JOLANTA, TSH3, ESR #### [place] [address] [place] #### HIV SCREEN, HBSAB, HAAB, ALPHA PHEN, MITOM2, IGG, MOHINI, HCBIGM, CELIAC, HBCAB, HEMOCHROM, HBSAG, L-K MICRO, PETH PROFILE, CERULOP, HCV RX PCR, HAABT, SMAB #### [facility] ,HIV 1/O/2 Antigen/Antibodyon 30-86-4022VOX Screen 4th GenerationNon-Reactive NormalNon ReactiveThe [facility] Physician GroupComment on above:Result Comment: HIV-1/HIV-2 antibodies and HIV-1 p24 antigen were NOT detected. There is no laboratory evidence of HIV infection. HIV Negative Performed at: [facility] Lab[address] [id number] Picker And Packer: Cm Purcell PhD, Phone: [phone] By: #### CDT #### [address] #### CALPROTECT #### [facility] ,Hep C Ab wRfx to Qnt PCRon 02-06-2407Vwcavwinx C Virus AntibodyNon-Reactive NormalNon ReactiveThe [facility] Physician GroupComment on above:Performed By: #### CRP, JOLANTA, TSH3, ESR #### [address] #### HIV SCREEN, HBSAB, HAAB, ALPHA PHEN, MITOM2, IGG, MOHINI, HCBIGM, CELIAC, HBCAB, HEMOCHROM, HBSAG, L-K MICRO, PETH PROFILE, CERULOP, HCV RX PCR, HAABT, SMAB #### [facility] ,Interpretation Hepatitis CCommentNormal.The [facility] Physician GroupComment on above:Result Comment: Not infected with HCV unless early or acute infection is suspected (which may be delayed in an immunocompromised individual), or other evidence exists to indicate HCV infection.Performed By: #### CRP, JOLANTA, TSH3, ESR #### [place] [address] [place] #### HIV SCREEN, HBSAB, HAAB, ALPHA PHEN, MITOM2, IGG, MOHINI, HCBIGM, CELIAC, HBCAB, HEMOCHROM, HBSAG, L-K MICRO, PETH PROFILE, CERULOP, HCV RX PCR, HAABT, SMAB #### [facility] ,Hepatitis A Antibody IgMon 71-54-4622Liomstxca A Antibody IgMNegativeNormal NegativeThe [facility] Physician GroupComment on above:Result Comment: A negative anti-HAV IgM result suggests no recent or current HAV infection.Performed By: #### CRP, JOLANTA, TSH3, ESR #### [place] [address] [place] #### HIV SCREEN, HBSAB, HAAB, ALPHA PHEN, MITOM2, IGG, MOHINI, HCBIGM, CELIAC, HBCAB, HEMOCHROM, HBSAG, L-K MICRO, PETH PROFILE, CERULOP, HCV RX PCR, HAABT, SMAB #### [facility] ,Hepatitis A Antibody Totalon 63-38-4054[place] A Antibody TotalNegativeNormal NegativeThe [facility] Physician GroupComment on above:Result Comment: Comment: The HAV total antibody assay detects both [...] total antibody results to IgM (e.g., panel #[id number] HAV Antibody w/ Rfx).Performed By: #### CDT #### [facility] [address] [place] [address] [place] #### CALPROTECT #### [facility] ,Hepatitis A virus Ab [Presence] in Serum by ImmunoassayOrdered By: Dimple Caraballo on 18-02-1441YVV Ab IA Ql (S)NegativeNegativeUniversity Hospitals [facility] Comment on above:Comment: The HAV total antibody assay detects both IgG andIgM but does not differentiate between them. A negativeresult suggests susceptibility to infection. A positiveresult could be due to vaccination, previously resolvedinfection or active infection. Testing for HAV IgM shouldbe performed if active HAV infection is suspected. Labcorpoffers profiles that will automatically reflex positive HAVtotal antibody results to IgM (e.g., panel #[id number] HAVAntibody w/ Rfx).Hepatitis B Core Antibodyon 92-63-9437Lilismove B Core AntibodyNegativeNormalNegativeThe [facility] Physician GroupComment on above:Performed By: #### CDT #### [facility] [address] [place] [address] [place] #### CALPROTECT #### [facility] ,Hepatitis B Core Antibody IgMon 56-09-3363Rwtbzxqzg B Core Antibody IgMNegative NormalNegativeThe [facility] Physician GroupComment on above:Result Comment: Performed at: - [facility] [id number] Picker And Packer: Cm Purcell PhD, Phone: [phone] By: #### CRP, JOLANTA, TSH3, ESR #### [place] [address] [place] #### HIV SCREEN, HBSAB, HAAB, ALPHA PHEN, MITOM2, IGG, MOHINI, HCBIGM, CELIAC, HBCAB, HEMOCHROM, HBSAG, L-K MICRO, PETH PROFILE, CERULOP, HCV RX PCR, HAABT, SMAB #### [facility] ,Hepatitis B Surface Antibodyon 79-95-5768Faknivacp B Surface Antibody Non-ReactiveNormal.[facility] Physician GroupComment on above:Result Comment: Non Reactive: Not immune to HBV infection. Equivocal: Unable to determine if anti-HBs is present at levels consistent with immunity. Reactive: Anti-HBs concentration detected at greater than 10 mIU/mL. Individual is considered to be immune to infection with HBV.Performed By: #### CDT #### [place] [address] [place] #### CALPROTECT #### [facility] ,Hepatitis B Surface Antigenon 03-32-9167TBiOu ScreenNegativeNormalNegativeThe [facility] Physician [facility] HospitalComment on above:Result Comment: PERFORMED BY: [place] [address] PATHOLOGIST SPECIAL EDUCATION PARA PROFESSIONAL ÁNGEL LUNA M.D.Performed By: #### CDT #### [place] [address] [place] #### CALPROTECT #### [facility] ,Hepatitis C virus IgG Ab [Presence] in Serum or Plasma by ImmunoassayOrdered By: Imad Asaad on 39-62-9313NKK IgG IA QlNon-ReactiveNon ReactiveUniversity Hospitals Tripoint Medical CenterHereditary Hemochromatosis,DNAon 10-99-5621Cgcaaioskf HemochromatosisCommentNormal.[facility] Physician GroupComment on above: Result Comment: Result: c.845G>A (p.Jpm062Wdm) - Not Detected c.187C>G (p.Waq55Aqf) - Not Detected c.193A>T (p.Afc05Lio) - Not Detected Not associated with increased [...] for patients who are homozygous for c.845G>A (p.Wlz972Bla) and have yet to experience clinical symptoms. Comments: The most common HFE variants associated with hereditary hemochromatosis are c.845G>A (p.Zkg320Wyf), c.187C>G (p.Sxt57Yzc), c.193A>T (p.Irf79Dhh). While patients homozygous for c.845G>A (p.Xqa701Iwf) are the most likely to present clinical symptoms, less than 10% develop clinically significant iron overload with tissue and organ damage. Genetic counseling is recommended to discuss the potential clinical implications of positive results, as well as recommendations for testing family members. Genetic Coordinators are available for health care providers to discuss results at [phone]). Test Details: Three variants analyzed: c.845G>A (p.Oth601Loe), commonly referred to as C282Y c.187C>G (p.Xza72Cfs), commonly referred to as H63D c.193A>T (p.Wpf76Aim), commonly referred to as S65C Methods/Limitations: DNA [...] developed and its performance characteristics determined by [facility]. It has not been cleared or approved by the Food and Drug Administration. References: Rogerio BR, Maximilian PC, Mushtaq KV, Segundo LW, Chay ; [place] [employer] Liver [employer]. Diagnosis and management of hemochromatosis: 2011 practice guideline by the [place] [employer] Liver Diseases. Hepatology. 2010;54(1):328-43. doi: 10.1002/hep.39609. PMID: 42659127; PMCID: UUQ1199069. Sameera G, Kylah P, Lisa DW, Pierre H, Garfield O, Rafa S, Nathen I, Rodney M, Darren S. [facility] best practice guidelines for the molecular genetic diagnosis of hereditary hemochromatosis (HH). Eur J Hum [place]. 2016 Aug;24(4):479-95. doi: 10.1038/ejhg.2015.128. Epub 2014Nov 13. PMID: 75712686; PMCID: [id number].Performed By: #### CDT #### [address] #### CALPROTECT #### [facility] ,Reviewed by:CommentNormal.[facility] Physician GroupComment on above:Result Comment: Technical Component performed at [facility] [place] Professional Component performed by: Nela Pierce, PhD, [facility] WSTGD6, [facility], [address] [place] [address] Performed at: - [facility] [place] [address], [place], [place] [id number] Picker And Packer: Cristina Sheehan [facility], Phone: [phone] PERFORMED BY: [place] [address] PATHOLOGIST SPECIAL EDUCATION PARA PROFESSIONAL ÁNGEL LUNA M.D.Performed By: #### CDT #### [place] [address] [place] #### CALPROTECT #### [facility] ,Immunoglobulin Oscar 93-72-2528Vjxiyakebpvbpp G6028 mg/fDMvznmo390-3289Lnd [facility] Physician GroupComment on above:Result Comment: Results confirmed on dilution. Performed at: [facility] [id number] Picker And Packer: Cm Purcell PhD, Phone: [phone] By: #### CDT #### [address] #### CALPROTECT #### [facility] ,Liver-Kidney Microsomal Abon 96-90-9466Pxcfv-Kidney Microsomal Ab1.6Normal 0.0-20.0The Kaleida HealthComment on above:Result Comment: Negative 0.0 - 20.0 Equivocal 20.1 - 24.9 Positive >24.9 LKM type 1 antibodies are detected in patients with autoimmune hepatitis type 2 and in up to 8% of patients with chronic HCV infection. Performed at: - [facility] [id number] Picker And Packer: Cm Purcell PhD, Phone: [phone] By: #### CDT #### [address] #### CALPROTECT #### [facility] ,Mitochondrial (M2) Antibodyon 78-82-3106Algerxzmdvcrz (M2) Bxunkzvu08.3Normal 0.0-20.0The Kaleida HealthComment on above:Result Comment: Negative 0.0 - 20.0 Equivocal 20.1 - 24.9 Positive >24.9 Mitochondrial (M2) Antibodies are found in 90-96% of patients with primary biliary cirrhosis. Performed at: - [facility] [address], [place], [place] [id number] Picker And Packer: Cm Purcell PhD, Phone: [phone] By: #### CDT #### [facility] [address] #### CALPROTECT #### [facility] ,No Panel InformationOrdered By: Dimple Caraballo on 18-40-5380Ttbb-Nuclear Antibody Comment 2Comment.[facility] Hospitals Tripoint Medical CenterComment on above:Pattern Potential Disease Association Homogeneous Systemic Lupus Erythematosus, Drug Induced Systemic Lupus Erythematosus, Chronic Autoimmune hepatitis, Juvenile Idiopathic Arthritis Speckled Sjogren Syndrome, Systemic Lupus Erythematosus, Subacute Cutaneous Lupus, Lupus, Congenital Heart Block, Mixed Connective Tissue Disease, Scleroderma-diffuse, Scleroderma- Autoimmune Myositis Overlap Syndrome, Systemic Lupus Geedncatlujut-Fwqnqrvtvbr-Ugwlutfgno Myositis Overlap Syndrome, Systemic Autoimmune Rheumatic Disease, Undifferentiated Connective Tissue Disease Nucleolar Systemic Sclerosis, Scleroderma-Autoimmune Myositis Overlap Syndrome, Sjogren Syndrome, Raynaud phenomenon, Pulmonary Arterial Hypertension, Systemic Autoimmune Rheumatic Disease, Cancer Centromere Scleroderma-CREST, Limited Cutaneous SSc, Raynaud's Phenomenon, Primary Biliary Cholangit is Nuclear Dot Primary Biliary Cholangitis Nuclear Primary Biliary Cholangitis, AutoimmuneMembrane Hepatitis/Liver disease, Systemic Autoimmune Rheumatic Disease, Autoimmune Cytopenias, Linear Scleroderma, Antiphospholipid Syndrome Performed at: [facility] [address] [id number] Director: Cm Purcell PhD, Phone: [phone] NoteComment.[facility]als Tripoint Medical CenterComment on above:Technical Component performed at [employer] RTPProfessional Component performed by:Nela Pierce, PhD, FACMGWSTGD6, [facility], [address] [facility] [address]Jwtojslsf at: [facility] [employer] [id number] [facility], [facility], [place] [id number] Director: Cristina Sheehan [facility], Phone: [phone] C InterpretationComment.[facility] Comment on above:Not infected with HCV unless early or acute infection issuspected (which may be delayed in an immunocompromisedindividual), or other evidence exists to indicate HCVinfection.Phosphatidylethanol Profileon 80-59-1578Qcmiufmwoxuyqjgjbks (PEth) Qnt58 ng/mLNormal.[facility] Physician GroupComment on above:Result Comment: Analyzed compound: PEth 16:0/18:1. 9-ujxopzvtw-5-gsdsfk-gk-tslblvb-3-phosphoethanol. Analysis performed by Liquid Chromatography with Tandem [...] developed and its performance characteristics determined by [employer]. It has not been cleared or approved by the Food and Drug Administration. Performed at: [facility] [address] [id number] Picker And Packer: Maryanne Zaidi [facility], Phone: [phone] PERFORMED BY: [place] [address] PATHOLOGIST SPECIAL EDUCATION PARA PROFESSIONAL ÁNGEL LUNA M.D.Performed By: #### CDT #### [facility] [address] [place] [address] [place] #### CALPROTECT #### [facility] ,Phosphatidylethanol (PEth) ScnPositiveCritically abnormal.[facility] Physician GroupComment on above:Performed By: #### CDT #### [facility] [address] [place] [address] #### CALPROTECT #### [facility] ,Phosphatidylethanol [Mass/volume] in BloodOrdered By: Dimple Caraballo on 12-28-2024 Phosphatidylethanol (Bld) [Mass/Vol]58 ng/mL.[facility] Comment on above:Analyzed compound: PEth 16:0/18:1. 0-bkpnxouya-6-pehpfm-je-ebcranh-3-phosphoethanol.Analysis performed by Liquid Chromatography withTandem Mass Spectrometry [...] was developed and its performance characteristicsdetermined by [employer]. It has not been cleared or approvedby the Food and Drug Administration.Performed at: [facility] [address] [id number] Director: Maryanne Zaidi [facility], Phone: [phone] [Presence] in Blood by Screen methodOrdered By: Dimple Caraballo on 83-90-6119Gkgjbifpmxdubcqjfvs Screen Ql (Bld)PositiveAbnormal.[facility] Rita's Medical Centererum gliadin peptide IgA antibody assay (units/volume)Ordered By: Dimple Caraballo on 12-28-2024 Gliadin peptide IgA Qn (S)4 units016 [address] StreetComment on above:Negative 0 - 19 Weak Positive 20 - 30 Moderate to Strong Positive >30 Serum gliadin peptide IgG antibody assay (units/volume)Ordered By: Dimple Caraballo on 09-33-4390Nuntmza peptide IgG Qn (S)2 units016 [address] StreetComment on above:Negative 0 - 19 Weak Positive 20 - 30 Moderate to Strong Positive >30Serum hepatitis B virus surface antibody detectionOrdered By: Dimple Caraballo 95-98-0455DJY surface Ab Ql (S)Non-Reactive.[facility] Tripoint Medical CenterComment on above:Non Reactive: Not immune to HBV infection. Equivocal: Unable to determine if anti-HBs is present atlevels consistent with immunity. Reactive: Anti-HBs concentration detected at greater than 10 mIU/mL. Individual is considered to be immune to infection with HBV.Serum homogeneous pattern antinuclear antibody (MOHINI) titerOrdered By: Dimple Caraballo on 69-84-8764Fbmafiynql nuclear Ab pattern (S) [Titer]1:640High.[facility] Tripoint Medical CenterComment on above:ICAP nomenclature: AC-1Serum mitochondria M2 IgG antibody assay (units/volume)Ordered By: Dimple Caraballo 06-16-0405Derzhbuxlsop M2 IgG Qn (S)64.3 UnitsHigh0.0-20.0[facility] Medical CenterComment on above:Negative 0.0 - 20.0 Equivocal 20.1 - 24.9 Positive >24.9Mitochondrial (M2) Antibodies are found in 90-96% ofpatients with primary biliary cirrhosis.Performed at: [employer] [id number] Director: Cm Purcell PhD, Phone: [phone] nuclear antibody titerOrdered By: Dimple Caraballo on 56-61-9125Zugdqad Ab (S) [Titer]PositiveAbnormal.[facility] Tripoint Medical CenterComment on above:Negative <1:80 Borderline 1:80 Positive >1:80Speckled cytoplasmic fluorescence is present. Theantibodies noted in this pattern may be associated with,but not restricted to, primary biliary cirrhosis (PBC),polymyositis and dermatomyositis (PM/DM), and/or systemiclupus erythematosus (SLE).Serum or plasma IgA measurement (mass/volume)Ordered By: Dimple Caraballo on 25-20-5833YxK [Mass/Vol]343 mg/mX94-645FkpnpwhjyUniversity Hospitals Tripoint Medical CenterComment on above:Performed at: [employer] [id number] Director: Cm Purcell PhD, Phone: [phone] or plasma IgG measurement (mass/volume)Ordered By: Dimple Caraballo on 27-55-0185OrL [Mass/Vol]6028 mg/dCPmfv873-6781LvdyhvgotUniversity Hospitals Tripoint Medical CenterComment on above:Results confirmed ondilution.Performed at: [employer] [id number] Director: Cm Purcell PhD, Phone: [phone] Serum or plasma alpha 1 antitrypsin measurement (mass/volume)Ordered By: Dimple Caraballo on 41-16-0639Rbpil 1 antitrypsin [Mass/Vol]121 mg/dV572-458TrfgrcusrMercy Health St. Rita's Medical Centererum or plasma alpha 1 antitrypsin phenotyping identification by immunofixationOrdered By: Dimple Caraballo on 16-09-7912Xnlyg 1 antitrypsin phenotyping Immunofixation NomMz.[facility] Comment on above: MM Phenotype is considered to be normal , producingnormal serum levels of joqry-2-zarmzcef inhibitor andnot associated with clinical disease. Associated E3Ouyhds serum levels in other phenotypes and theirincidence [...] reference. Ranges used to confirm phenotype.Performed at: [facility] [address] [id number] Director: Cm Purcell PhD, Phone: [phone] at: [facility] [employer] [id number] Director: Jacoby Truong MD, Phone: [phone] or plasma ceruloplasmin measurement (mass/volume)Ordered By: Dimple Caraballo on 62-60-2700Xtgvrgbbmitcy [Mass/Vol]30.1 mg/dL19.0-39.0[facility] Medical CenterComment on above:Performed at: [employer] [id number] Director: Cm Purcell PhD, Phone: [phone] or plasma hepatitis B virus surface antigen detection by immunoassayOrdered By: Dimple Caraballo on 74-46-0388RKV surface Ag IA QlNegativeNegativeMercy Health St. Rita's Medical Centererum or plasma lipoprotein a measurement (moles/volume)Ordered By: Dimple Caraballo on 12-28-2024 Lipoprotein a [Moles/Vol]1.6 Units0.0-20.0[facility] Comment on above:Negative 0.0 - 20.0 Equivocal 20.1 - 24.9 Positive >24.9LKM type 1 antibodies are detected in patients withautoimmune hepatitis type 2 and in up to 8% ofpatients with chronic HCV infection.Performed at: [facility] [id number] [place], [place] [id number] Director: Cm Purcell PhD, Phone: [phone] tissue transglutaminase (tTG) IgA antibody assay (units/volume)Ordered By: Dimple Caraballo on 99-93-4627qKH IgA Qn (S)<2 U/mL0-3 [facility] Medical CenterComment on above:Negative 0 - 3 Weak Positive 4 - 10 Positive >10 Tissue Transglutaminase (tTG) has been identified as the endomysial antigen. Studies have demonstr- ated that endomysial IgA antibodies have over 99% specificity for gluten sensitive enteropathy.Serum tissue transglutaminase (tTG) IgG antibody assay (units/volume)Ordered By: Dimple Caraballo on 39-67-6763sCV IgG Qn (S)10 U/mLHigh0-5FMercy Health Springfield Regional Medical Center Comment on above:Negative 0 - 5 Weak Positive 6 - 9 Positive >9Smooth Muscle Antibodyon 76-88-8991Letqjm Muscle Cvqipkgm888Wdozbe2-10Nss [facility] Physician GroupComment on above:Result Comment: Negative 0 - 19 Weak positive 20 - 30 Moderate to strong positive >30 Actin Antibodies are found in 52-85% of patients with autoimmune hepatitis or chronic active hepatitis and in 22% of patients with primary biliary cirrhosis.Performed By: #### CDT #### [address] #### CALPROTECT #### [facility] ,Thyrotropin [Units/volume] in Serum or PlasmaOrdered By: Dimple Caraballo on 87-38-1304CXU Qn8.28 m[IU]/LHigh0.45-5.33[facility] Comment on above:Result Comment: PERFORMED BY: [place] [address] PATHOLOGIST SPECIAL EDUCATION PARA PROFESSIONAL ÁNGEL LUNA M.D.Performed By: #### CRP, JOLANTA, TSH3, ESR #### [facility] [address] #### HIV SCREEN, HBSAB, HAAB, ALPHA PHEN, MITOM2, IGG, MOHINI, HCBIGM, CELIAC, HBCAB, HEMOCHROM, HBSAG, L-K MICRO, PETH PROFILE, CERULOP, HCV RX PCR, HAABT, SMAB #### [facility] ,UROVYSION(TM) FOR BLADDERon 72-74-9610UTMBROTLJ FOR BLADDER CANCERSEE COMMENTS NormalProMidland Memorial HospitalComment on above:Order Comment: Pre-op diagnosis: Encounter for follow-up surveillance of bladder cancer [Z08, Z85.51]Result Comment: Test Result Flag Unit RefValue UroVysion (R) for Bladder Cancer Result Summary [...] specific probe for 9p21 ([employer] [place], [place]). This test has been modified from the corporate librarian's instructions. Its performance characteristics were determined by [facility] in a manner consistent with CLIA requirements. This test has not been cleared or approved by the U.S. Food and Drug Administration. Reason for Referral Evaluate for urothelial carcinoma. Specimen Varies Source cystoscope Released By Gillian Alfonso M.D. Test Performed by: [facility] - [facility] [address] [place] [address] Picker And Packer: Romain Campos Ph.D.; CLIA# [id number] By: #### URVY #### [facility] (SDL) [address] [place] [address] VIRCT abdomen pelvis w conon 70-05-3962UW abdomen pelvis w [facility] Main [address] [address] [address] Scan Report Signed Patient: Yaa Duggan MR#: [id number] : 1950 Acct:[id number] Age/Sex: 74 / F ADM Date: 12/11/24 Loc: CT Room: Type: [facility] Attending Dr: Kate Prado MD Copies to: [...] Jr., D.OHeriberto 12/11/2024 2:39 PM Dictation Location: [place] [address] Transcribed By: [facility] 12/11/24 1439 Dictated By: Jersey Warner Jr, DO 12/11/24 1433 Signed By: 12/11/24 1439[facility] Physician GroupBasophils Auto (Bld) [#/Vol] Ordered By: Kate Prado on 23-53-3665Uijygbmzw (Bld) [#/Vol]0.0 10 3/uL0.0-0.1 [facility] CenterBasophils/100 WBC Auto (Bld)Ordered By: Kate Praod on 05-22-1453Cqtsousjp/100 WBC (Bld)0.2 %0.2-2.0[facility] Medical CenterEosinophils/100 WBC Auto (Bld)Ordered By: Kate Prado on 11-19-2024 Eosinophils/100 WBC (Bld)0.8 %Low0.9-7.0[facility] Erythrocyte distribution width Auto (RBC) [Ratio]Ordered By: Kate Prado on 88-07-3447Fanwtjykvtk distribution width (RBC) [Ratio]16.7 %High11.0-15.0 [facility] Medical CenterEstimated glomerular filtration rate (GFR) non- AmericanOrdered By: Kate Prado on 10-63-5478UNM/1.73 sq M.predicted among non-blacks MDRD (S/P/Bld) [Vol rate/Area]38 mL/min/{1.73_m2}Low>=60 mL/min/1.73m 2FMercy Health Springfield Regional Medical CenterGlobulin Calc (S) [Mass/Vol] Ordered By: Kate Prado on 64-37-0466Fsbnoubm (S) [Mass/Vol]7.3 g/dLUniversity Hospitals Tripoint Medical CenterHematocrit Auto (Bld) [Volume fraction]Ordered By: Kate Prado on 44-49-3397Gtbdqktqdy (Bld) [Volume fraction]33.6 %Low36.0-48.0[facility] Medical CenterHemoglobin [Mass/volume] in BloodOrdered By: Kate Prado on 75-90-7047Kajieseqpa (Bld) [Mass/Vol]10.6 g/dLLow12.0-16.0[facility] Medical CenterLaboratory - Chemistry and Chemistry - challengeOrdered By: Kate Prado on 55-89-8295Cgajaqk [Mass/Vol]3.0 g/dLLow3.4-5.0[facility] Medical CenterALP [Catalytic activity/Vol]198 U/BZsdq77-289HpinlgjokUniversity Hospitals Tripoint Medical CenterALT [Catalytic activity/Vol]50 U/I58-95CgyzfecolUniversity Hospitals Tripoint Medical CenterAST [Catalytic activity/Vol]107 U/XCeam09-45ZshzzskyhUniversity Hospitals Tripoint Medical CenterBilirubin [Mass/Vol]0.8 mg/dL0.2-1.0[facility] Calcium [Mass/Vol]8.1 mg/dLLow8.5-10.1FMercy Health Springfield Regional Medical CenterChloride [Moles/Vol]104 mmol/M10-960BcyygckdfUniversity Hospitals Tripoint Medical CenterCO2 [Moles/Vol]24.6 mmol/L21.0-32.0[facility] Medical CenterCobalamin (Vitamin B12) [Mass/Vol]378 pg/vD796-3885VgikjguyrUniversity Hospitals Tripoint Medical CenterComment on above: Performed at: - [facility] [id number] Director: Cm Purcell PhD, Phone: [phone] [Mass/Vol]1.38 mg/dLHigh0.55-1.02[facility] Medical CenterFree T4 [Mass/Vol]1.74 ng/dL High0.76-1.46[facility] Medical CenterGFR/1.73 sq M.predicted MDRD (S/P/Bld) [Vol rate/Area]46 mL/min/{1.73_m2}Low>=60 mL/min/1.73m 2FMercy Health Springfield Regional Medical CenterGlucose [Mass/Vol]116 mg/dPKuph77-906VwtofpoesUniversity Hospitals Tripoint Medical CenterPotassium [Moles/Vol]4.2 mmol/L3.5-5.1FMercy Health Springfield Regional Medical CenterProtein [Mass/Vol]10.3 g/dLHigh6.4-8.2FMercy Health Springfield Regional Medical Center Sodium [Moles/Vol]138 mmol/U384-715UiemqfdhuUniversity Hospitals Tripoint Medical CenterTSH Qn4.811 m[IU]/LHigh0.358-3.740[facility] Medical CenterUrea nitrogen [Mass/Vol] 22.0 mg/dLHigh7.0-18.0[facility] Medical CenterUrea nitrogen/Creatinine [Mass ratio]15.9 mg/mgUniversity Hospitals Tripoint Medical CenterLaboratory - Hematology and Cell countsOrdered By: Kate Prado on 84-16-6449Topacxww granulocytes/100 WBC (Bld)0.3 %0.0-0.5FMercy Health Springfield Regional Medical CenterLeukocytes [#/volume] corrected for nucleated erythrocytes in Blood by Automated counOrdered By: Kate Prado on 57-62-9003AJP corrected for nucl RBC Auto (Bld) [#/Vol]6.3 10 3/uL4.0-11.0[facility] Medical CenterLymphocytes Auto (Bld) [#/Vol] Ordered By: Kate Prado on 11-40-7687Dxhoawlqdaz (Bld) [#/Vol]1.9 10 3/uL 1.2-3.8[facility] Medical CenterLymphocytes/100 WBC Auto (Bld)Ordered By: Kate Prado on 50-97-0682Fdedwpernrr/100 WBC (Bld)29.5 %20.5-60.0[facility] Medical CenterH Auto (RBC) [Entitic mass]Ordered By: Kate Prado on 21-43-0855AZL (RBC) [Entitic mass]26.0 pgLow26.7-34.0[facility] Medical CenterHC Auto (RBC) [Mass/Vol]Ordered By: Kate Prado on 89-97-9194PDQN (RBC) [Mass/Vol]31.5 g/dL29.9-35.2FMercy Health Springfield Regional Medical CenterMCV Auto (RBC) [Entitic vol]Ordered By: Kate Prado on 28-51-6881BEV (RBC) [Entitic vol]82.4 fL81.0-99.0[facility] Medical CenterMicroalbumin [Mass/volume] in Urine Ordered By: Kate Prado on 78-19-8266Gpiiqip DL <= 20 mg/L (U) [Mass/Vol]mg/dL <=30.0[facility] Medical CenterMonocytes Auto (Bld) [#/Vol]Ordered By: Kate Prado on 29-08-5917Tdigxvcva (Bld) [#/Vol]0.5 10 3/uL0.3-0.8[facility] Medical CenterMonocytes/100 WBC Auto (Bld)Ordered By: Kate Prado on 82-47-7450Wlddnayvd/100 WBC (Bld)8.4 %1.7-12.0[facility] Neutrophils Auto (Bld) [#/Vol]Ordered By: Kate Prado on 53-93-7266Wiabimmqrsr (Bld) [#/Vol]3.8 10 3/uL1.4-6.5FMercy Health Springfield Regional Medical CenterNeutrophils/100 WBC Auto (Bld)Ordered By: Kate Prado on 36-63-9444Lrrhxbumgww/100 WBC (Bld) 60.8 %43.0-75.0[facility] CenterNo Panel InformationOrdered By: Kate Prado on 39-53-1020Wptpphrvbcq # (Auto)0.1 10 3/uL0.0-0.7FMercy Health Springfield Regional Medical CenterFolate4.10 ng/mLLow8.60-58.90[facility] Medical CenterImmature Granulocyte # (Auto)0.02 10 3/uL0.00-0.03[facility] Medical CenterUrine Random Qlnsfaisxw992.20 mg/dL20.00-300.00[facility] Medical CenterPlatelet mean volume Auto (Bld) [Entitic vol]Ordered By: Kate Prado on 33-13-6052Egbwwalb mean volume (Bld) [Entitic vol]10.4 fL9.5-13.5 [facility] Medical CenterPlatelets Auto (Bld) [#/Vol]Ordered By: Kate Prado on 19-08-7823Vxfblupqz (Bld) [#/Vol]272 10 3/yD570-580QbllkjvybUniversity Hospitals Tripoint Medical CenterRBC Auto (Bld) [#/Vol]Ordered By: Kate Prado on 93-62-6128GKC (Bld) [#/Vol]4.08 10 6/uLLow4.20-5.40[facility] Rita's Medical Centererum or plasma albumin/globulin mass ratioOrdered By: Kate Prado on 11-19-2024 Albumin/Globulin [Mass ratio]0.4 {ratio}[facility] Centererum or plasma anion gap determinationOrdered By: Kate Prado on 10-22-3400Emttb gap [Moles/Vol]13.6 mmol/LFMercy Health Springfield Regional Medical CenterUrine microalbumin/creatinine mass ratioOrdered By: Kate Prado on 11-19-2024 Albumin/Creatinine DL <= 20 mg/L (U) [Mass ratio]8.8 mg/g0.0-29.9[facility] CenterComment on above:NO MICROALBUMINURIA 0-29 MG/GCLINICAL MICROALBUMINURIA 30-300 MG/GMACROALBUMINURIA >300 MG/GAmbulatory Visit Summaryon 68-15-7090Jdscauxble Visit SummaryAmbulatory Visit Summary YAA DUGGAN :1950 Visit Date:04/09/2024 Ambulatory Visit Instructions Your Diagnosis Bile salt-induced diarrhea History of anal cancer History of colon polyps Your Care Team Attending Physician - Otis GATES, Arvind Garcia Primary Care Physician - EVE GATES, KATE This Is Your Medications List Contact prescribing [...] you for choosing us for your care. [facility] Office/Clinic Noteon [id number] Office/Clinic NoteGastroenterology Office/Clinic Note Chief Complaint Constipation HPI Staff [...] - Not Given Patient Refuses SARS-CoV-2 (COVID-19) mRNAMUL.[id number] 07/15/2022 Recorded SARS-CoV-2 (COVID-19) mRNA BNT-162b2 vax 04/17/2021 Recorded SARS-CoV-2 (COVID-19) mRNA BNT-162b2 vax 09/03/2020 Recorded SARS-CoV-2 (COVID-19) mRNA BNT-162b2 vax 08/13/2020 Recorded pneumococcal 13-valent vaccine 02/05/2019 RecordedSelect [facility], Edwin ShawComment on above:Result Comment: Electronically Signed By: Otis GATES, Arvind Garcia\.br\Date and Time Signed: 04/09/24 10:45 ESTOffice Visit (Cardiology)on 58-41-6690Lecyxr-up visitDiagnoses/Problems Assessed Family history of Carotid stenosis, non-symptomatic [...] Metabolic Panel; Status:Active - Retrospective Authorization; Requested for:[id number]; Angina pectoris, Dyspnea, Jaw pain Cardiac Catheterization Lab Procedures; Status:Active - Retrospective Authorization; Requested for:[id number]; Benign essential hypertension Start: Losartan Potassium 50 MG Oral Tablet; TAKE 1 TABLET TWICE DAILY Class 1 obesity with body mass index (BMI) of 34.0 to 34.9 in adult Healthy Weight Tips; Status:Complete - Retrospective Authorization; Done: [id number] Some eating tips that can help you lose weight.; Status:Complete - Retrospective Authorization; Done: [id number] Dyspnea IO EKG Electrocardiogram- 12 Lead; Status:Complete; Done: [id number] Hyperlipidemia Start: Atorvastatin Calcium 40 MG Oral Tablet (Lipitor); TAKE 1 TABLET AT BEDTIME ALT - Alanine Aminotransferase, Serum; Status:Active - Retrospective Authorization; Requested for:79Lyw1918; AST; Status:Active - Retrospective Authorization; Requested for:30Smv6564; Lipid Panel; Status:Active - Retrospective Authorization; Requested for:08Kun2861; SocHx: Former smoker Tobacco Use Screening; Status:Complete; Done: 93Dir5985 Unlinked Stop: Atorvastatin Calcium 20 MG Oral [...] issue of her progressive (more content not included)...NormalUH [facility]works Tobacco Screening.on 78-89-3043Yzuru depression screening assessmentSouth County Hospital [employer] 250 DO Work Phone: Tobacco use status CPHSb) [facility] [employer] 250 DO Work Phone: MICRO OTHER TESTSOrdered By: Ester Hernandez on 02-73-1976Otqrp WBC LactoferrinNegative (07/20/22 9:30 AM)NormalNegativeST. MARY'S [facility] Man SeroMG MAMM SCREEN 3D THOMPSON CADon 91-19-8409WG MAMM SCREEN 3D THOMPSON CADPatient: YAA DUGGAN Exam Date: 07/12/2022 : 1950 Gender:F Ordering : DR KATE PRADO M.D. Admission #: [id number] Family : Order #: [id number] CLICK HERE TO VIEW EXAM RADIOLOGY REPORT [...] radiation, chemotherapy. Family Cancers None LOCATION: [facility] BREAST COMPOSITION: Almost entirely fatty. FINDINGS: DIAGNOSTIC [...] by: Kati Smith MD on 07/12/2022 at 11:07[facility] HospitalCBC AUTO DIFFon 06-34-1418QIRR #0.0 103/ulNormal0.0-0.1[facility] CenterComment on above:Performed By: #### CBC #### [facility] [address] [place] [address] Dr. Vitaliy Españasophils/100 WBC (Bld)0.4 %Normal0.2-2.0[facility] Comment on above:Performed By: #### CBC #### [facility] [address] [place] [address] Dr. Vitaliy Aleman #0.1 103/ulNormal0.0-0.7The [facility] WestComment on above: Performed By: #### CBC #### [facility] [address] [place] [address] Dr. Vitaliy Fuentesosinophils/100 WBC (Bld)1.6 %Normal0.9-7.0[facility] Comment on above:Performed By: #### CBC #### [facility] [address] [place] [address] Dr. Vitaliy Fuentesrythrocyte distribution width (RBC) [Ratio]13.7 %Qqzmex69.0-15.0 [facility] CenterComment on above:Performed By: #### CBC #### [facility] [address] [place] [address] Dr. Vitaliy Quezadaatokhadart (Bld) [Volume fraction]43.8 %Crxclt56.0-48.0[facility] CenterComment on above:Performed By: #### CBC #### [facility] [address] [place] [address] Dr. Vitaliy VarelaHemoglobin (Bld) [Mass/Vol]14.5 g/bLLoqxay93.0-16.0The [facility] WestComment on above:Performed By: #### CBC #### [facility] [address] [place] [address] Dr. Vitaliy Quiñones #0.01 10e3/ulNormal0.00-0.03The [facility] WestComment on above:Performed By: #### CBC #### [facility] [address] [place] [address] Dr. Vitaliy Quiñones %0.2 %Normal0.0-0.5The [facility] WestComment on above: Performed By: #### CBC #### [facility] [address] [place] [address] Dr. Vitaliy Mayers #1.7 103/ulNormal1.2-3.8The [facility] WestComment on above:Performed By: #### CBC #### [facility] [address] [place] [address] Dr. Vitaliy Saldivarhocytes/100 WBC (Bld)31.3 %Cannlf00.5-60.0The [facility] WestComment on above:Performed By: #### CBC #### [facility] [address] [place] [address] Dr. Vitaliy LundUAL DIFF REQNONormalThe [facility] WestComment on above: Performed By: #### CBC #### [facility] [address] [place] [address] Dr. Vitaliy Farias (RBC) [Entitic mass]27.8 ntLptnhb36.7-34.0The [facility] WestComment on above:Performed By: #### CBC #### [facility] [address] [place] [address] Dr. Vitaliy Farias (RBC) [Mass/Vol]33.1 g/eTXquczu21.9-35.2The [facility] WestComment on above:Performed By: #### CBC #### [facility] [address] [place] [address] Dr. Vitaliy Bates (RBC) [Entitic vol]84.1 qLLxqgwt40.0-99.0The [facility] WestComment on above:Performed By: #### CBC #### [facility] [address] [place] [address] Dr. Vitaliy Lujan #0.5 103/ulNormal0.3-0.8The [facility] WestComment on above:Performed By: #### CBC #### [facility] [address] [place] [address] Dr. Vitaliy Christieocytes/100 WBC (Bld)9.3 %Normal1.7-12.0[facility] Comment on above:Performed By: #### CBC #### [facility] [address] [place] [address] Dr. Vitaliy Branch #3.2 103/ulNormal1.4-6.5The [facility] WestComment on above:Performed By: #### CBC #### [facility] [address] [place] [address] Dr. Vitaliy Griffinutrophils/100 WBC (Bld)57.2 %Vghnhy90.0-75.0The [facility] WestComment on above:Performed By: #### CBC #### [facility] [address] [place] [address] Dr. Vitaliy Jarquin mean volume (Bld) [Entitic vol]9.2 fLCritically low 9.5-13.5The [facility] WestComment on above:Performed By: #### CBC #### [facility] [address] [place] [address] Dr. Vitaliy VarelaPLT227 103/glYnphvz278-933Acj [facility] WestComment on above: Performed By: #### CBC #### [facility] [address] [place] [address] Dr. Vitaliy VarelaRBC5.21 106/ulNormal4.20-5.40The [facility] WestComment on above:Performed By: #### CBC #### [facility] [address] [place] [address] Dr. Vitaliy VarelaWBC5.5 103/ulNormal4.0-11.0The [facility] on above: Performed By: #### CBC #### [facility] [address] [place] [address] Dr. Vitaliy VarelaFREE T4on 85-20-4926Erjl T4 [Mass/Vol]1.44 ng/dLNormal0.76-1.46 [facility]Com[facility] on above:Performed By: #### FT4 #### [facility] [address] [place] [address] Dr. iVtaliy VarelaGLYCOHEMOGLOBIN A1Con 99-42-4465RMZ RECOMMENDATIONSEE BELOWOhiohealth Marion General HospitalComforest health medical center on above:Result Comment: ADA RECOMMENDED LIMIT 4.0 - 6.0 ADA THERAPEUTIC TARGET < 7.0 ACTION SUGGESTED > 7.0Performed By: #### A1C #### [facility] [address] [place] [address] Dr. Vitaliy VarelaGlucose [Mass/Vol]120 mg/dLNoThe [facility] on above:Performed By: #### A1C #### [facility] [address] [place] [address] Dr. Vitaliy VarelaHbA1c (Bld) [Mass fraction]5.8 %Normal4.5-6.2[facility] on above:Performed By: #### A1C #### [facility] [address] [place] [address] Dr. Vitaliy VarelaLIPID PROFILEon 04-53-1165ZEIF-HDL RATIO NORMSEE [facility] on above:Result Comment: 3.3 - 4.4 LOW RISK 4.4 - 7.1 AVERAGE RISK 7.1 - 11.0 MODERATE RISK >11.0 HIGH RISKPerformed By: #### CMP, TSH, LIPID #### [facility] [address] [place] [address] Dr. Vitaliy VarelaCholesterol [Mass/Vol]287 mg/dLCritically high<=200The [facility] on above:Performed By: #### CMP, TSH, LIPID #### [facility] [address] [address] [address] Vitaliy Nevilleesterol in HDL [Mass/Vol]50 mg/dZZgmhpl49-13Tex [facility] on above:Performed By: #### CMP, TSH, LIPID #### [facility] [address] [place] [address] Dr. Vitaliy VarelaCholesterol in LDL [Mass/Vol]200.4 mg/dLNoBellevue HospitalComforest health medical center on above:Performed By: #### CMP, TSH, LIPID #### [facility] [address] [place] [address] Dr. Vitaliy Casanova.total/Cholesterol in HDL [Mass ratio]5.7 {ratio} NormalAvita Health System on above:Performed By: #### CMP, TSH, LIPID #### [facility] [address] [place] [address] Dr. Vitaliy Walsh NORMAL> or = 60 mg/dl - LOW CARDIOVASCULAR RISK <40 mg/dl - HIGH CARDIOVASCULAR RISKKing's Daughters Medical Center [place] on above:Performed By: #### CMP, TSH, LIPID #### [facility] [address] [place] [address] Dr. Vitaliy Davis CALC NORMALSEE BELOWAultman Alliance Community HospitalComforest health medical center on above:Result Comment: <100 mg/dl OPTIMAL 100 - 129 mg/dl NEAR OR ABOVE OPTIMAL 130 - 159 mg/dl BORDERLINE HIGH 160 - 189 mg/dl HIGH >190 mg/dl VERY HIGH Performed By: #### CMP, TSH, LIPID #### [facility] [address] [place] [address] Dr. Vitaliy VarelaTriglyceride [Mass/Vol]183 mg/dLCritically high<=150The [facility] on above:Performed By: #### CMP, TSH, LIPID #### [facility] [address] [place] [address] Dr. Vitaliy VarelaVLDL CALC36.6 mg/dLNoBellevue HospitalComment on above: Performed By: #### CMP, TSH, LIPID #### [facility] [address] [place], [place] [address] Dr. Vitaliy VarelaPROF 14(COMP METB)on 71-90-1315Xwqmtkv [Mass/Vol]3.9 g/dLNormal 3.4-5.0The [facility] WestComment on above:Performed By: #### CMP, TSH, LIPID ####[facility] [address] [address]Dr. Vitaliy VarelaAlbumin/Globulin [Mass ratio]1.1 {ratio}NormalUpper Valley Medical Center Comment on above:Performed By: #### CMP, TSH, LIPID ####[facility] [address] [address]Dr. Vitaliy VarelaALP [Catalytic activity/Vol]85 U/KVfqynd43-438Knl [facility] WestComment on above:Performed By: #### CMP, TSH, LIPID ####[facility] [address] [address]Dr. Vitaliy VarelaALT [Catalytic activity/Vol]38 U/L Slflpu32-55Qyd [facility] WestComment on above:Performed By: #### CMP, TSH, LIPID ####[facility] [address] [place], [place] [address]Dr. Vitaliy ChangAnion gap [Moles/Vol]13.1 mmol/LNormalUpper Valley Medical Center Comment on above:Performed By: #### CMP, TSH, LIPID ####[facility] [address] [address]Dr. Yilan ChangAST [Catalytic activity/Vol]32 U/XUlimkk17-06Gzh [facility] WestComment on above:Performed By: #### CMP, TSH, LIPID ####[facility] [address] [place], [place] [address]Dr. Shikhalan ChangBilirubin [Mass/Vol]0.8 mg/dLNormal 0.2-1.0The [facility] WestComment on above:Performed By: #### CMP, TSH, LIPID ####[facility] [address] [place], [place] [address]Dr. Yilan ChangCalcium [Mass/Vol]8.6 mg/dLNormal8.5-10.1The [facility] WestComment on above:Performed By: #### CMP, TSH, LIPID ####[facility] [address] [address]Dr. Yilan ChangChloride [Moles/Vol]103 mmol/FRzmwsy58-153Ydk [facility] WestComment on above:Performed By: #### CMP, TSH, LIPID ####[facility] [address] [address]Dr. Yilan ChangCO2 [Moles/Vol]26.6 mmol/LNormal 21.0-32.0The [facility] WestComment on above:Performed By: #### CMP, TSH, LIPID ####[facility] [address] [address]Dr. Yilan ChangCreatinine [Mass/Vol]0.72 mg/dLNormal0.55-1.02The [facility] WestComment on above:Performed By: #### CMP, TSH, LIPID ####[facility] [address] [address]Dr. Yilan ChangEGFR- AF SIERRA LEONEAN>60Normal>=60The [facility] WestComment on above:Performed By: #### CMP, TSH, LIPID ####[facility] [address] [address]Dr. Yilan ChangEGFR-NON AF SIERRA LEONEAN>60Normal>=60The [facility] Comment on above:Performed By: #### CMP, TSH, LIPID ####[facility] [address] [id number]. Yilan ChangGlobulin (S) [Mass/Vol]3.7 g/dLNormalThe [facility] WestComment on above:Performed By: #### CMP, TSH, LIPID ####[facility] [address] [address]Dr. Yilan ChangGlucose [Mass/Vol]108 mg/dLCritically agrj12-838Czc [facility] WestComment on above:Performed By: #### CMP, TSH, LIPID ####[facility] [address] [address]Dr. Yilan ChangPotassium [Moles/Vol]3.7 mmol/LNormal3.5-5.1The [facility] Comment on above:Performed By: #### CMP, TSH, LIPID ####[facility] [address] [address]Dr. Yilan ChangProtein [Mass/Vol]7.6 g/dLNormal6.4-8.2The [facility] WestComment on above:Performed By: #### CMP, TSH, LIPID ####[facility] [address] [address]Dr. Yilan ChangSodium [Moles/Vol]139 mmol/LNormal 136-145The [facility] WestComment on above:Performed By: #### CMP, TSH, LIPID ####[facility] [address] [address]Dr. Yilan ChangUrea nitrogen [Mass/Vol]13.0 mg/dLNormal7.0-18.0The [facility] Comment on above:Performed By: #### CMP, TSH, LIPID ####[facility] [address] [address]Dr. Yilan ChangUrea nitrogen/Creatinine [Mass ratio]18.1 mg/mgNormalThe [facility] WestComment on above:Performed By: #### CMP, TSH, LIPID ####[facility] [address] [address]Dr. Yilan ChangTSHon 98-43-4406AFH0.570 uIU/mLNormal0.358-3.740The [facility] WestComment on above:Performed By: #### CMP, TSH, LIPID ####[facility] [address] [place], [place] [address]Dr. Yilan AveryCBC AUTO DIFFon 83-50-0943EYAY #0.0 103/ulNormal0.0-0.1 The [facility] WestComment on above:Performed By: #### CBC #### [facility] [address] [address] [address] Vitaliy VarelaBasophils/100 WBC (Bld)0.4 %Normal0.2-2.0The [facility] Comment on above:Performed By: #### CBC #### [facility] [address] [place] [address] Dr. Vitaliy Aleman #0.1 103/ulNormal0.0-0.7The [facility] WestComment on above: Performed By: #### CBC #### [facility] [address] [place] [address] Dr. Vitaliy Fuentesosinophils/100 WBC (Bld)2.6 %Normal0.9-7.0The [facility] Comment on above:Performed By: #### CBC #### [facility] [address] [place] [address] Dr. Vitaliy Fuentesrythrocyte distribution width (RBC) [Ratio]14.2 %Frffvv89.0-15.0 The [facility] WestComment on above:Performed By: #### CBC #### [facility] [address] [place] [address] Dr. Vitaliy VarelaHematocrit (Bld) [Volume fraction]41.0 %Xwvnbv60.0-48.0The [facility] WestComment on above:Performed By: #### CBC #### [facility] [address] [place] [address] Dr. Vitaliy VarelaHemoglobin (Bld) [Mass/Vol]13.1 g/uHSdmzvw43.0-16.0The [facility] WestComment on above:Performed By: #### CBC #### [facility] [address] [place] [address] Dr. Vitaliy uQiñones #0.03 10e3/ulNormal0.00-0.03The [facility] WestComment on above:Performed By: #### CBC #### [facility] [address] [place] [address] Dr. Vitaliy Quiñones %0.6 %Critically high0.0-0.5The [facility] WestComment on above:Performed By: #### CBC #### [facility] [address] [address] [address] Vitaliy Mayers #1.6 103/ulNormal1.2-3.8The [facility] Hospitalment on above:Performed By: #### CBC #### [facility] [address] [address] [address] Vitaliy Leemphocytes/100 WBC (Bld)29.8 %Oxexkb55.5-60.0The [facility] WestComment on above:Performed By: #### CBC #### [facility] [address] [place] [address] Dr. Vitaliy Hawkins DIFF REQNONormalThe [facility] WestComment on above: Performed By: #### CBC #### [facility] [address] [place] [address] Dr. Vitaliy Farias (RBC) [Entitic mass]27.9 ujWxubrp61.7-34.0The [facility] WestComment on above:Performed By: #### CBC #### [facility] [address] [place] [address] Dr. Vitaliy Farias (RBC) [Mass/Vol]32.0 g/yFEwdwgf57.9-35.2The [facility] WestComment on above:Performed By: #### CBC #### [facility] [address] [place] [address] Dr. Vitaliy Farias (RBC) [Entitic vol]87.2 vQEcyhvu28.0-99.0The [facility] WestComment on above:Performed By: #### CBC #### [facility] [address] [place] [address] Dr. Vitaliy Lujan #0.6 103/ulNormal0.3-0.8The [facility] Hospitalment on above:Performed By: #### CBC #### [facility] [address] [place] [address] Dr. Vitaliy Christieocytes/100 WBC (Bld)11.0 %Normal1.7-12.0The [facility] Comment on above:Performed By: #### CBC #### [facility] [address] [address] [address] Vitaliy Branch #3.0 103/ulNormal1.4-6.5The [facility] WestComment on above:Performed By: #### CBC #### [facility] [address] [address] [address] Vitaliy Griffinutrophils/100 WBC (Bld)55.6 %Zmnyen98.0-75.0The [facility] WestComment on above:Performed By: #### CBC #### [facility] [address] [address] [address] Vitaliy VarelaPlatelet mean volume (Bld) [Entitic vol]9.2 fLCritically low 9.5-13.5The [facility] WestComment on above:Performed By: #### CBC #### [facility] [address] [address] [address] Vitaliy VarelaPLT230 103/xiDjiztg009-208Aqd [facility] WestComment on above: Performed By: #### CBC #### [facility] [address] [address] [address] Vitaliy VarelaRBC4.70 106/ulNormal4.20-5.40The [facility] Hospitalment on above:Performed By: #### CBC #### [facility] [address] [address] [address] Vitaliy VarelaWBC5.4 103/ulNormal4.0-11.0The [facility] WestComment on above: Performed By: #### CBC #### [facility] [address] [address] [address] Vitaliy VarelaFREE T4on 82-63-4594Cevt T4 [Mass/Vol]1.18 ng/dLNormal0.76-1.46 The [facility] WestComment on above:Performed By: #### FT4 #### [facility] [address] [address] [address] Vitaliy VarelaLIPID PROFILEon 71-53-6522OFVF-HDL RATIO NORMSCleveland Clinic Medina Hospital on above:Result Comment: 3.3 - 4.4 LOW RISK 4.4 - 7.1 AVERAGE RISK 7.1 - 11.0 MODERATE RISK >11.0 HIGH RISKPerformed By: #### LIPID, CMP, TSH #### [facility] [address] [address] [address] Vitaliy VarelaCholesterol [Mass/Vol]278 mg/dLCritically high<=200The [facility] on above:Performed By: #### LIPID, CMP, TSH #### [facility] [address] [place] [address] Dr. Vitaliy VarelaCholesterol in HDL [Mass/Vol]44 mg/iFNqnruw09-25XugAvita Health System on above:Performed By: #### LIPID, CMP, TSH #### [facility] [address] [place] [address] Dr. Vitaliy VarelaCholesterol in LDL [Mass/Vol]181.8 mg/dLKing's Daughters Medical Center [place] on above:Performed By: #### LIPID, CMP, TSH #### [facility] [address] [place] [address] Dr. Vitaliy Nevilleesterpool.total/Cholesterol in HDL [Mass ratio]6.3 {ratio} NormalAvita Health System on above:Performed By: #### LIPID, CMP, TSH #### [facility] [address] [place] [address] Dr. Vitaliy Walsh NORMAL> or = 60 mg/dl - LOW CARDIOVASCULAR RISK <40 mg/dl - HIGH CARDIOVASCULAR RISKKing's Daughters Medical [facility] [place] on above:Performed By: #### LIPID, CMP, TSH #### [facility] [address] [place] [address] Dr. Vitaliy VarelaLDL CALC NORMALSEE [facility] on above:Result Comment: <100 mg/dl OPTIMAL 100 - 129 mg/dl NEAR OR ABOVE OPTIMAL 130 - 159 mg/dl BORDERLINE HIGH 160 - 189 mg/dl HIGH >190 mg/dl VERY HIGH Performed By: #### LIPID, CMP, TSH #### [facility] [address] [address] [address] Vitaliy VarelaTriglyceride [Mass/Vol]261 mg/dLCritically high<=150The [facility] Hospitalment on above:Performed By: #### LIPID, CMP, TSH #### [facility] [address] [address] [address] Vitaliy VarelaVLDL CALC52.2 mg/dLNormalThe [facility] WestComment on above: Performed By: #### LIPID, CMP, TSH #### [facility] [facility] [address] [address] [address] Vitaliy VarelaPROF 14(COMP METB)on 84-73-1215Fsentxu [Mass/Vol]3.7 g/dLNormal 3.4-5.0The [facility] on above:Performed By: #### LIPID, CMP, TSH #### [facility] [address] [address] [address] Vitaliy VarelaAlbumin/Globulin [Mass ratio]0.9 {ratio}NormalThe [facility] Hospitalment on above:Performed By: #### LIPID, CMP, TSH #### [facility] [address] [address] [address] Vitaliy Pool [Catalytic activity/Vol]90 U/UKagbzb50-543Wqg [facility]ment on above:Performed By: #### LIPID, CMP, TSH #### [facility] [address] [address] [address] Vitaliy Estrada [Catalytic activity/Vol]35 U/MSwlljf37-63Ksy [facility]ment on above:Performed By: #### LIPID, CMP, TSH #### [facility] [address] [address] [address] Vitaliy Nguyen gap [Moles/Vol]12.6 mmol/LNormalThe [facility] on above:Performed By: #### LIPID, CMP, TSH #### [facility] [address] [address] [address] Vitaliy Sheldon [Catalytic activity/Vol]19 U/BRratam24-80Wwz Tom HospitalComment on above:Performed By: #### LIPID, CMP, TSH #### [facility] [address] [address] [address] Vitaliy VarelaBilirubin [Mass/Vol]0.4 mg/dLNormal0.2-1.0The [facility] Comment on above:Performed By: #### LIPID, CMP, TSH #### [facility] [address] [address] [address] Vitaliy VarelaCalcium [Mass/Vol]8.9 mg/dLNormal8.5-10.1The [facility] Comment on above:Performed By: #### LIPID, CMP, TSH #### [facility] [address] [place] [address] Dr. Vitaliy VarelaChloride [Moles/Vol]104 mmol/SIpqpsq35-981Hed [facility] Comment on above:Performed By: #### LIPID, CMP, TSH #### [facility] [address] [place] [address] Dr. Vitaliy VarelaCO2 [Moles/Vol]26.6 mmol/LCgczsg03.0-32.0The [facility] Comment on above:Performed By: #### LIPID, CMP, TSH #### [facility] [address] [place] [address] Dr. Vitaliy VarelaCreatinine [Mass/Vol]0.83 mg/dLNormal0.55-1.02The [facility]:Performed By: #### LIPID, CMP, TSH #### [facility] [address] [place] [address] Dr. Vitaliy FuentesGFR-AF SIERRA LEONEAN>60Normal>=60[facility]:Performed By: #### LIPID, CMP, TSH #### [facility] [address] [place] [address] Dr. Vitaliy FuentesGFR-NON AF SIERRA LEONEAN>60Normal>=60[facility] above:Performed By: #### LIPID, CMP, TSH #### [facility] [address] [place] [address] Dr. Vitaliy VarelaGlobulin (S) [Mass/Vol]4.0 g/dLNormBerger HospitalComment on above:Performed By: #### LIPID, CMP, TSH #### [facility] [address] [address] [address] Vitaliy VarelaGlucose [Mass/Vol]113 mg/dLCritically tlud08-825Lmc [facility] above:Performed By: #### LIPID, CMP, TSH #### [facility] [address] [address] [address] Vitaliy VarelaPotassium [Moles/Vol]4.2 mmol/LNormal3.5-5.1The [facility] Comment on above:Performed By: #### LIPID, CMP, TSH #### [facility] [address] [place] [address] Dr. Vitaliy VarelaProtein [Mass/Vol]7.7 g/dLNormal6.4-8.2[facility] Comment on above:Performed By: #### LIPID, CMP, TSH #### [facility] [address] [place] [address] Dr. Vitaliy VarelaSodium [Moles/Vol]139 mmol/YZtgcmq203-454Sqi [facility] Comment on above:Performed By: #### LIPID, CMP, TSH #### [facility] [address] [place] [address] Dr. Vitaliy VarelaUrea nitrogen [Mass/Vol]19.0 mg/dLCritically high7.0-18.0The [facility] above:Performed By: #### LIPID, CMP, TSH #### [facility] [address] [place] [address] Dr. Vitaliy VarelaUrea nitrogen/Creatinine [Mass ratio]22.9 mg/mgNoBellevue HospitalComment on above:Performed By: #### LIPID, CMP, TSH #### [facility] [address] [place] [address] Dr. Vitaliy Ayala 32-75-2643GFU8.108 uIU/mLCritically low0.358-3.740[facility] CenterComment on above:Performed By: #### LIPID, CMP, TSH #### [facility] [address] [place], [place] [address] Dr. Vitaliy Traore [facility] HospitalComment on above: Result Comment: <0.34 UIU/ml HYPERTHYROID 0.34-5.60 UIU/ml EUTHYROID >5.60 UIU/ml HYPOTHYROIDPerformed By: #### LIPID, CMP, TSH #### [facility] [address] [place], [place] [address] Dr. Vitaliy Varela Vital Signs Date TimeVital SignValuePerforming YvkfcragpBixnfvfw84-13-7579 12:49-0500Body sdaesf166.1 [facility] [address] [place], [place] 2183511-11-2025 12:49-0500Body mass index (BMI) [Ratio]31.02 kg/m2Pfo [address] [place], [place] 2183511-11-2025 12:49-0500Body rpsnkpuwopq46.81 [degF]Pfo [address] [place], [place] 2183511-11-2025 12:49-0500Body demhtt75.[address] [place], [place] 2183511-11-2025 12:49-0500Diastolic blood tiegrxvy74 mm[Hg]Pfo [address] [place], [place] 2183511-11-2025 12:49-0500Heart rate82 /minPfo [address] [place], [place] 2183511-11-2025 12:49-0500Respiratory rate16 /minPfo [address] [place], [place] 2183511-11-2025 12:49-5473VkO7% (BldA) [Mass fraction]97 %Pfo [address] [place], [place] 2183511-11-2025 12:49-0500Systolic blood cwopbdkd772 mm[Hg] o [address] [place], [place] 2183510-27-2025 13:33-0400Diastolic blood dbvakkoq94 mm[Hg]Elenita Fowler MD Work Phone: [facility]10-27-2025 13:33-0400Heart rate 72 /minElenita Fowler MD Work Phone: [facility]10-27-2025 13:33-0400 Respiratory rate16 /minAnjalika Fowler MD Work Phone: [phone] [place], [place] 4978810-27-2025 13:33-3667KwL0% (BldA) [Mass fraction]98 %Elenita Fowler MD Work Phone: [phone] [place], [place] 4978810-27-2025 13:33-0400Systolic blood rojhfmbg381 mm[Hg]Elenita Fowler MD Work Phone: [phone] [place], [place] 4978810-27-2025 13:29-0400Body pfeznu364.1 cmAkathleen Fowler MD Work Phone: [phone] [place], [place] 4978810-27-2025 13:29-0400Body mass index (BMI) [Ratio]33.45 kg/c7CwihkockElenita Fowler MD Work Phone: [phone] [place], [place] 4978810-27-2025 13:29-0400Body .17 kgElenita Fowler MD Work Phone: [phone] [place], [place] 4978810-22-2025 13:06-0400Body vqindp904.1 cmKate Prado MD Work Phone: [phone]10-22-2025 13:06-0400 Body mass index (BMI) [Ratio]34.4 kg/y7GlvyiyKate Prado MD Work Phone: [phone]10-22-2025 13:06-0400 Body ixlgok12.89 kgKate Prado MD Work Phone: [phone]10-22-2025 13:06-0400 Diastolic blood lnocxoan29 mm[Hg]Kate Prado MD Work Phone: [phone]10-22-2025 13:06-0400 Heart rate83 /Greg Prado MD Work Phone: [phone]10-22-2025 13:06-0400 Systolic blood wdyewvqb043 mm[Hg]Kate Prado MD Work Phone: [facility]10-21-2025 13:59-0400 Body airxvi049.[address]10-21-2025 13:59-0400Body mass index (BMI) [Ratio]34.45 kg/m[address]10-21-2025 13:59-0400Body .[address]10-21-2025 13:59-0400Diastolic blood ksegtujb94 mm[Hg][address] 02-26-2025 13:59-0400Heart rate84 /min[address]10-21-2025 13:59-0400Systolic blood mm[Hg][address] 02-26-2025 10:22-0400Body bbyteq982.1 cmCourmarika Singhne PA Work Phone: [facility]10-21-2025 10:22-0400Body mass index (BMI) [Ratio]34.51 kg/d1Lmgrtfhz Bloom PA Work Phone: [facility]10-21-2025 10:22-040Body zczfsxqgodk04.39 [degF]Federica Lboom PA Work Phone: [facility]10-21-2025 10:22-040Body ivform48.08 kgCourtpatsy Bloom PA Work Phone: [facility]10-21-2025 10:22-0400Diastolic blood tcivhieo18 mm[Hg]Federica Bloom PA Work Phone: [facility]10-21-2025 10:22-040Heart rate 54 /minCourtney Bloom PA Work Phone: [facility]10-21-2025 10:22-0400 Respiratory rate18 /minCourtney Bloom PA Work Phone: [facility]10-21-2025 10:22-2919JrQ3% (BldA) [Mass fraction]97 %Federica BALDWIN Work Phone: [facility]10-21-2025 10:22-0400Systolic blood mm[Hg]Federica BALDWIN Work Phone: [facility]10-03-2025 14:55-0400Body sxqjvu204.[address]10-03-2025 14:55-0400Body mass index (BMI) [Ratio]34.41 kg/i1Fqzqe[address]10-03-2025 14:55-0400Body wlrxxabepip68.7 [degF][address]10-03-2025 14:55-0400Body oeqcje94.[address]10-03-2025 14:55-0400 Diastolic blood potsuqng67 mm[Hg][address]10-03-2025 14:55-0400Heart rate80 /min[address]10-03-2025 14:55-0400 SaO2% (BldA) [Mass fraction]94 %[address]10-03-2025 14:55-0400Systolic blood pojnrhja112 mm[Hg][address] 02-04-2025 12:27-0400Diastolic blood hkuovygv24 mm[Hg]Elenita Fowler MD Work Phone: [facility]09-29-2025 12:27-0400Systolic blood nfeicciq972 mm[Hg]Elenita Fowler MD Work Phone: [facility]09-29-2025 08:49-0400Heart rate 68 /Angy Fowler MD Work Phone: [facility]09-29-2025 08:49-0400 Respiratory rate18 /Angy Fowler MD Work Phone: [facility]09-29-2025 08:49-9114DbL6% (BldA) [Mass fraction]98 %Elenita Fowler MD Work Phone: [facility]09-29-2025 08:43-0400Body yqhfee211.1 Clarissa Fowler MD Work Phone: [facility]09-29-2025 08:43-0400Body mass index (BMI) [Ratio]34.85 kg/h6RssmavgjElenita Fowler MD Work Phone: [facility]09-29-2025 08:43-0400Body qfgkye82.98 kgElenita Fowler MD Work Phone: [facility]09-24-2025 14:17-0400Body mass index (BMI) [Ratio]33.25 kg/y3Brdlc Tigist DO Work Phone: [facility] HospitalLbxgnugypy13-84-9858 14:17-0400Body asekmv67.44 kgCorey Tigist DO Work Phone: [facility] HospitalGlroxruroz78-97-4318 14:17-0400Diastolic blood vdimzcxx43 mm[Hg]Florentin Tigist DO Work Phone: [facility] HospitalJylpilqpoo61-14-6744 14:17-0400Systolic blood dnijrqkn540 mm[Hg]Florentin Tigist DO Work Phone: [facility] HospitalEupwzemrfl74-77-2226 14:22-0400Body .[address]09-23-2025 14:22-0400Body mass index (BMI) [Ratio] 33.28 kg/m[address]09-23-2025 14:22-0400Body smluzl82.[address]09-16-2025 13:00-0400Diastolic blood mm[Hg]Kate Prado MD Work Phone: [facility]09-16-2025 13:00-0400 Heart rate63 /Greg Prado MD Work Phone: [phone]09-16-2025 13:00-0400 Respiratory rate20 /minKate Prado MD Work Phone: [phone] [place], [place] 5615909-16-2025 13:00-0400 SaO2% (BldA) [Mass fraction]97 %Kate Prado MD Work Phone: [phone])[address] [place], [place] 5615909-16-2025 13:00-0400 Systolic blood ehfurnxx829 mm[Hg]Kate Prado MD Work Phone: [phone])[address] [place], [place] 5615909-16-2025 10:48-0400 Body .1 cmKate Prado MD Work Phone: [phone] [place], [place] 5615909-16-2025 10:48-0400 Body uzziof53.71 kgKate Prado MD Work Phone: [phone])[address] [place], [place] 5615908-21-2025 08:08-0400 Body ocghiu373.83 cmKate Prado MD Work Phone: [phone] [place], [place] 5615908-21-2025 08:08-0400 Body mass index (BMI) [Ratio]33.7 kg/q3SqcuofKate Prado MD Work Phone: 1(396)[address] [place], [place] 5615908-21-2025 08:08-0400 Body xsntho84.71 kgKate Prado MD Work Phone: [phone])[address] [place], [place] 5615908-21-2025 08:08-0400 Diastolic blood gyungwmr31 mm[Hg]Kate Prado MD Work Phone: 1(303)[address] [place], [place] 5615908-21-2025 08:08-0400 Heart rate75 /minKate Prado MD Work Phone: [phone])[address] [place], [place] 5615908-21-2025 08:08-0400 Systolic blood hustxfde135 mm[Hg]Kate Prado MD Work Phone: 1([phone])[address] [place], [place] 5615908-15-2025 09:53-0400 Body aajndz507.[address]08-15-2025 09:53-0400Body mass index (BMI) [Ratio]32.28 kg/m2Pmh [address] [place], [place] 2183508-15-2025 09:53-0400 Body rfsulu76.[address] [place], [place] 2183507-14-2025 11:22-0400Body height 163.83 cmKate Prado MD Work Phone: [facility]07-14-2025 11:22-0400 Body mass index (BMI) [Ratio]34.1 kg/l0ZfjmwgKate Prado MD Work Phone: [facility]07-14-2025 11:22-0400 Body hivnfm43.62 kgKate Prado MD Work Phone: [phone]07-14-2025 11:22-0400 Diastolic blood gcrjcegj12 mm[Hg]Kate Prado MD Work Phone: [facility]07-14-2025 11:22-0400 Heart rate80 /Greg Prado MD Work Phone: [facility]07-14-2025 11:22-0400 Respiratory rate12 /Greg Prado MD Work Phone: [phone]07-14-2025 11:22-0400 SaO2% (BldA) [Mass fraction]98 %Kate Prado MD Work Phone: [facility]07-14-2025 11:22-0400 Systolic blood flcydfrr797 mm[Hg]Kate Prado MD Work Phone: [facility]12-02-2024 10:09-0500 Blood Pressure LocationMuhammad Jenniemini 268-1142Gxxrwq-XsfbtTrinity Health System12-02-2024 10:09-0500Diastolic blood wkjqbast34 mm[Hg]Samuels Sarmini 188-4904Fpbyym-PphziTrinity Health System12-02-2024 10:09-0500Heart rate67 /minMugeri Schneidermini 932-6265Cufxzj-TzaaoTrinity Health System12-02-2024 10:09-0500Systolic blood imlwywue168 mm[Hg]Arvind Berg 555-8785Lajctc-VgumxTrinity Health System12-28-2023 09:00-0500Body .83 cmKate Prado Other [employer] Other [id number] 09:00-0500Body mass index (BMI) [Ratio]36.5 kg/k2FdblexKate Prado Other [facility] Other [id number] 09:00-0500Body escyjuvhban43.7 [degF]Kate Prado Other [employer] Other [id number] 09:00-0500Body fitwks03.[address] [facility] Other 12-28-2023 09:00-0500Diastolic blood guvnlotd54 mm[Hg] Kate Prado Other [facility] Other 12-28-2023 09:00-9807JdN1% (BldA) [Mass fraction]95 % Kate Prado Other [facility] Other 12-28-2023 09:00-0500Systolic blood oeiufcgy532 mm[Hg] Kate Prado Other [employer] Other [id number] 10:07-0500Blood Pressure Yordan Worthy 216-2962Bgpxzy-CtadzTrinity Health System12-01-2023 10:07-0500Body zjnhhtzdcfy39.8 [degF]Ashely Worthy 605-1170Rekiac-FedneTrinity Health System12-01-2023 10:07-0500Diastolic blood brbwsole85 mm[Hg]Ashely Lamasz 663-5325Rlahdq-QraswTrinity Health System12-01-2023 10:07-0500Heart rate64 /Stephane Worthy 021-1631Ntluux-FadcnTrinity Health System12-01-2023 10:07-0500Systolic blood tpuvjcnv712 mm[Hg]Ashely Worthy 663-9543Gfxcxo-YnnepTrinity Health System11-17-2023 13:06-0500Body wqnaph315.6 cmEleazar Murray MD Work Phone: [phone])625-[address] [place], [place] 9722411-17-2023 13:06-0500 Body mass index (BMI) [Ratio]35.35 kg/w3MpicmpEleazar Murray MD Work Phone: [phone](309)012-[address] [place], [place] 9722411-17-2023 13:06-0500 Body nanalo54.34 kgEleazar Murray MD Work Phone: 1(122)413-[address] [place], [place] 9722411-17-2023 13:06-0500 Diastolic blood lgrvleff21 mm[Hg]Eleazar Murray MD Work Phone: 4(227)160-[address] [place], [place] 9722411-17-2023 13:06-0500 Heart rate76 /minEleazar Murray MD Work Phone: 9(207)624-[address] [place], [place] 9722411-17-2023 13:06-0500 Systolic blood loeuueiw828 mm[Hg]Eleazar Murray MD Work Phone: 1(507)246-[address] [place], [place] 9722410-27-2023 15:30-0400 Body kjxlci337.83 cmKate Prado Other [employer] Other 771910-29-6005 15:30-0400Body mass index (BMI) [Ratio] 36.84 kg/q3DbwfeqKate Prado Other [employer] [facility] [employer] Other 10-27-2023 15:30-0400Body pyrado44.88 kgKate Prado Other [employer] Other 10-27-2023 15:30-0400Diastolic blood wpqidxdh85 mm[Hg] Kate Prado Other [employer] Other 10-27-2023 15:30-3312WqD6% (BldA) [Mass fraction]93 % Kate Prado Other [employer] Other 10-27-2023 15:30-0400Systolic blood mm[Hg] Kate Prado Other [employer] Other 09-13-2023 10:01-0400Diastolic blood mm[Hg] Kate Prado Work Phone: [phone]-Inuvo [place] [employer] 250 DO Work Phone: 1(333) 471-626209-13-2023 10:01-0400Systolic blood mm[Hg] Kate Prado Work Phone: [phone]-Qrlqh [place] [employer] 250 DO Work Phone: 1(485) 441-251309-13-2023 09:55-0400Body cbovde750.64 cmKate Prado Work Phone: mp409-2525ZQ-Gnpdb [place] [employer] 250 DO Work Phone: 1(290) 318-820009-13-2023 09:55-0400Body mass index (BMI) [Ratio] 34.54 kg/t6GnubdvKate Prado Work Phone: mp243-9206VG-Wuxny [place] [employer] 250 DO Work Phone: 1(936) 458-292509-13-2023 09:55-0400Body surface area Derived from formula2.06 u4DlkowqKate Prado Work Phone: mp304-9961YB-Cjjip [place] [employer] [address] DO Work Phone: 1(584) 638-929009-13-2023 09:55-0400Body jcjoek13.07 kgKate Prado Work Phone: mp050-0225CV-Rvgcp [place] [employer] 250 DO Work Phone: 1(518) 418-336009-13-2023 09:55-0400Diastolic blood mm[Hg] Kate Prado Work Phone: [phone]-Lhdia [place] [facility] DO Work Phone: 1(952) 604-698309-13-2023 09:55-0400Heart rate58 /minKate Prado Work Phone: [phone]-Gmgjv [place] [address] DO Work Phone: 1(894) 375-144309-13-2023 09:55-0400Systolic blood voiveyjv108 mm[Hg] Kate Prado Work Phone: [phone]-Lbnfe [place] [address] DO Work Phone: 1(247) 922-866509-11-2023 15:00-0400Body qywffn124.83 cmKate Prado Other [employer] Other 09-11-2023 15:00-0400Body mass index (BMI) [Ratio] 35.96 kg/x5JvaamdKate Prado Other [employer] Other 09-11-2023 15:00-0400Body pgufni58.53 kgKate Prado Other [employer] Other 09-11-2023 15:00-0400Diastolic blood yaqmwewz49 mm[Hg] Kate Prado Other [employer] Other 09-11-2023 15:00-0400Respiratory rate12 /Greg Prado Other [employer] Other 09-11-2023 15:00-0400Systolic blood nvqdruiz346 mm[Hg] Kate Prado Other [facility] [employer] Other 09-01-2023 13:13-0400Diastolic blood zidnvvct31 mm[Hg] Ashely Robmetz 519-8428Almdqq-HuldsTrinity Health System09-01-2023 13:13-0400Mean blood ecnswshz803 mm[Hg]Ashely Deacon 775-9021Fqnqal-BcitcTrinity Health System09-01-2023 13:13-0400Systolic blood sepyocov615 mm[Hg]Ashely Deacon 956-4752Kjsufs-Fyqfq[address] [place], [place] 9460609-01-2023 13:05-0400Blood Pressure LocationBeth Deacon 868-8608Iwoxsg-FpkqkTrinity Health System09-01-2023 13:05-0400Body mmhokbhkvkg83.34 [degF]Ashely Deacon 048-2985Hrvzik-Dlfkf[address] [place], [place] 9460609-01-2023 13:05-0400Diastolic blood qppqnoyw67 mm[Hg]Ashely Deacon 130-7622Ueyoqx-VkbigTrinity Health System09-01-2023 13:05-0400Heart rate63 /minBeth Deacon 673-8208Hslusa-NiepxTrinity Health System09-01-2023 13:05-0400Systolic blood kaascjib698 mm[Hg]Ashely Deacon 135-9852Wqnman-GgkuhTrinity Health System08-31-2023 10:00-0400Body akklwr421.83 cmKate Prado Other [facility] [employer] Other 08-31-2023 10:00-0400Body mass index (BMI) [Ratio] 36.94 kg/r6MhvhyqKate Prado Other [employer] [facility] [employer] Other 08-31-2023 10:00-0400Body ugarwqaaext65 [degF]Kate Prado Other [employer] Other 08-31-2023 10:00-0400Body itwmvb94.16 kgKate Eve Other [employer] Other 08-31-2023 10:00-0400Diastolic blood mfmomdae27 mm[Hg] Kate Prado Other [employer] Other 08-31-2023 10:00-9147IkB0% (BldA) [Mass fraction]97 % Kate Prado Other [employer] Other 08-31-2023 10:00-0400Systolic blood tdssbinj309 mm[Hg] Kate Prado Other [employer] [facility] [employer] Other 07-28-2023 13:35-0400Diastolic blood ochhdfrp73 mm[Hg] Ashely Worthy 688-6262Wxnipa-QcfkuTrinity Health System07-28-2023 13:35-0400Mean blood ewghhpui998 mm[Hg]Ashely Worthy 250-6384Fhqygn-WhcjwTrinity Health System07-28-2023 13:35-0400Systolic blood ujcbnpkz094 mm[Hg]Ashely Worthy 577-3460Gifrdy-WscidTrinity Health System07-28-2023 13:25-0400Blood Pressure LocationBemaricarmen Worthy 930-3783Kooxvw-JngkbTrinity Health System07-28-2023 13:25-0400Body okbrdetmilj69.06 [degF]Ashely Worthy 183-3202Bunfaq-Vqoww[address] [place], [place] 9460607-28-2023 13:25-0400Diastolic blood mm[Hg]Ashely Worthy 304-0221Leknqm-Xtews[address] [place], [place] 9460607-28-2023 13:25-0400Heart rate62 /minBeth Deacon 401-9488Axwmtl-NpxliTrinity Health System07-28-2023 13:25-0400Respiratory rate16 /minBeth Deacon 090-5165Ftcpmg-Rgkel[address] [place], [place] 9460607-28-2023 13:25-0855CnT1% (BldA) [Mass fraction]97 %Ashely Deacon 377-7098Xyclew-Sbulx[address] [place], [place] 9460607-28-2023 13:25-0400Systolic blood apiejgbu969 mm[Hg]Ashely Worthy 450-3137Fkfltv-Kriys[address] [place], [place] 9460604-28-2023 13:33-0400Diastolic blood gucprhmv04 mm[Hg]Ashely Deacon 045-6295Nkroem-Tdmrx[address] [place] [address]-28-2023 13:33-0400Mean blood nimwjjat238 mm[Hg]Ashely Deacon 779-0115Uemaij-Lzagb[address] [place], [place] 9460604-28-2023 13:33-0400Systolic blood zpcjajcd956 mm[Hg]Ashely Worthy 208-5821Rhbmfg-Frwfd[address] [place], [place] 9460604-28-2023 13:28-0400Blood Pressure LocationBeth Deacon 270-5354Hvotzd-Cqlqi[address] [place] [address]-28-2023 13:28-0400Body xkahpdwxscs92.16 [degF]Ashely Worthy 831-4731Sriwmf-Smmwu[address] [place], [place] 9460604-28-2023 13:28-0400Diastolic blood kboxeian21 mm[Hg]Ashely Worthy 673-1171Cabrgw-CrudvTrinity Health System04-28-2023 13:28-0400Heart rate67 /minBeth Deacon 774-2804Htmayq-GrtdfTrinity Health System04-28-2023 13:28-0400Systolic blood ptopkuhc114 mm[Hg]Ashely Worthy 760-6203Gimvxk-VdfhwTrinity Health System03-09-2023 13:08-0500Diastolic blood factgsja357 mm[Hg]Copeland SALAM 730-1128Rynwoo-QgwijTrinity Health System03-09-2023 13:08-0500Mean blood bxdompsy323 mm[Hg]Copeland SALAM 072-1621Pvijjr-HilupTrinity Health System03-09-2023 13:08-0500Systolic blood jkabxtwt181 mm[Hg]Cop[place] SALAM 014-1493Jojumj-LdvepTrinity Health System03-09-2023 13:06-0500Blood Pressure LocationMaher SALAM 582-4696Iamxgh-PmlnhTrinity Health System03-09-2023 13:06-0500Diastolic blood mm[Hg][place] SALAM 139-6019Otdtvw-AzwwiTrinity Health System03-09-2023 13:06-0500Heart rate78 /minMaher SALAM 080-4836Ygjwtv-EutweTrinity Health System03-09-2023 13:06-0500Respiratory rate16 /minMaher SALAM 163-0998Awgmgq-UzzvcTrinity Health System03-09-2023 13:06-0500Systolic blood qlenzeeu475 mm[Hg][place] SALAM 903-8760Bviphv-ExhgaTrinity Health System02-27-2023 10:45-0500Body rjkqig380.83 cmKate Prado Other [employer] Shipster Other 02-27-2023 10:45-0500Body mass index (BMI) [Ratio] 37.18 kg/d6Jjgxwk Eve Other [employer] Other 02-27-2023 10:45-0500Body jgfxpe89.79 kgKate Eve Other noKunshan [employer] Other 02-27-2023 10:45-0500Diastolic blood ecfajltz01 mm[Hg] Kate Eve Other noKunshan [employer] Other 02-27-2023 10:45-1821ZhO9% (BldA) [Mass fraction]97 % Kateivan Prado Other [employer] Other 02-27-2023 10:45-0500Systolic blood xmgifrcd602 mm[Hg] Kate Prado Other [employer] Other Encounters Encounter DateEncounter [facility] ProviderFacilityStart: 03-19-2025 End: 91-53-8884wwakecbwhgXQRHME E [facility] HospitalComment on above: Malignant neoplasm of overlapping sites of bladder (CMS-HCC) (Primary Dx)Start: 03-13-2025 End: 85-99-3749uvwglkvdykTGBRZUV G [facility] CENTERROSALINEMercy Health Will[facility] Hospitaltart: 03-08-2025 End: 10-01-8709Nbcngxyos encounterAlissa Marielle [facility] Urinary SurgeonsStart: 03-08-2025 End: 32-59-0753lxkyqdwtbbMggmabzVignesh Dockery MD Work Phone: [place] [facility] Genito-Urinary SurgeonsComment on above:Malignant neoplasm of overlapping sites of bladder (CMS-HCC) (Primary Dx) Start: 03-06-2025 End: 85-56-3960Kmtlatqpe encounterDaviayde Walls Physicians Genito- Urinary SurgeonsComment on above:Malignant neoplasm of overlapping sites of bladder (CMS-HCC) (Primary Dx)Start: 03-05-2025 End: 58-48-1459Pwgronjvl encounterAnayeli Grissom MD Work Phone: [facility] Physicians Genito-Urinary SurgeonsStart: 03-04-2025 End: 81-80-4145Edkivm follow up visit related to original Rusty Fowler MD Work Phone: [facility] On[facility], A Department of [facility] HospitalComment on above:Post-operative state (Primary Dx); CystadenomaStart: 03-04-2025 End: 04-73-2551aemdxaorynIXIFBDSQ [facility] CENTERIVELISSEOhioHealth Van Wert Hospitaltart: 03-01-2025 End: 04-86-1053Guqmqzp encounter procedureDimple Caraballo MD-[facility] Work Phone: Start: 03-01-2025 End: 17-53-5831zgexxtqwdqUmefru E Braun MD Work Phone: -[facility] CenterStart: 02-27-2025 End: 70-97-1329susnshluxjRttcge E Braun MD Work Phone: [phone]-CftlvscofCrossroads Regional Medical CenterStart: 02-27-2025 End: 18-13-4385Gbyrlcc encounter procedureDimple Caraballo MD-[facility] Work Phone: Start: 02-26-2025 End: 76-41-9408Ceuhsw outpatient visit 15 minutesAnayeli Grissom MD Work Phone: [facility] Physicians Genito-Urinary SurgeonsComment on above:Malignant neoplasm of overlapping sites of bladder (CMS-HCC) (Primary Dx) Start: 02-26-2025 End: 58-65-6434vpmzczisymGHNDODJ G SCHUSTERMiami Valley Hospital [facility] Start: 02-26-2025 End: 28-70-9014Hkvjig follow up visit related to original Minerva BALDWIN Work Phone: Felicita Camarillo [facility] - Medical OncologyComment on above:Encounter for postoperative care (Primary Dx)Start: 02-26-2025 End: 61-54-6332mxglqeyyytXZBNSCNW [facility] HospitalStart: 02-20-2025 End: 94-25-8809Ubhzuzsiz encounterMaggy CRABTREE [facility] [place]edoStart: 02-19-2025 End: 48-40-8628Dlnpfusgj encounterShadia Villegas Gynecology Oncology, A Department of [facility] Centertart: 20-38-9365Pua-patient / Non-visitCatherine Matthew [facility] Work Phone: Start: 02-18-2025 End: 00-80-5689Qezyxeeuu encounterShadia LIZGlenwood Regional Medical Centerkristen Gynecology Oncology, A Department of [facility] Centertart: 02-14-2025 End: 73-98-1258Lyiqyyzuwg and management of inpatientELENITA MullenUniversity Hospitals Lake West Medical Centertart: 02-11-2025 End: 25-62-7943Itcdjn outpatient visit 40 minutesElenita Fowler MD Work Phone: [facility] Gynecology Oncology, A Department of [facility] HospitalComment on above:Pelvic mass (Primary Dx); Cirrhosis of liver with ascites, unspecified hepatic cirrhosis type (CMS-HCC) Start: 02-11-2025 End: 25-24-2307qxfyoxewxsGYBFQILK GANDHIPrFairfield Medical Centertart: 02-08-2025 End: 73-03-3203Gzfrwwl encounter statusElenita Fowler MD Work Phone: [facility] Centertart: 84-48-5467Shjofokpp for other preprocedural examinationELENITA MullenUniversity Hospitals Lake West Medical Centertart: 02-08-2025 End: 44-71-6709Mxsblm OnlyElenita Fowler MD Work Phone: [facility] Gynecology Oncology, A Department of [facility] HospitalComforest [facility] medical [facility] on above:Encounter for follow-up surveillance of bladder cancer (Primary Dx); Pelvic mass; Complex ovarian cyst; Other ascites; Cirrhosis of liver with ascites, unspecified hepatic cirrhosis type (CMS-HCC); Preop testingPelvic mass (Primary Dx); Complex ovarian cyst; Other ascites; Preop testing; Cirrhosis of liver with ascites, unspecified hepatic cirrhosis type (CMS-HCC); Other abnormal tumor markersPre-op testing (Primary Dx); Pelvic mass; Complex ovarian cyst; Other ascites; Preop testing; Cirrhosis of liver with ascites, unspecified hepatic cirrhosis type (CMS-HCC); Other abnormal tumor markersStart: 02-05-2025 End: 91-48-9381jdvhymstieJHBJCFKF GANDHIPrDayton Osteopathic Hospital Start: 02-04-2025 End: 02-63-7236kqyedlgistIGLGGUFisher-Titus Medical Centertart: 02-04-2025 End: 47-08-7248Fzunuh outpatient new 60 minutesElenita Fowler MD Work Phone: [facility] Oncology, A Department of [facility] HospitalComment on above:Pelvic mass (Primary Dx); Complex ovarian cyst; Other ascites; Other abnormal tumor markers; Cirrhosis of liver with ascites, unspecified hepatic cirrhosis type (CMS-HCC); Abnormal findings on diagnostic imaging of liver and biliary tractStart: 02-04-2025 End: 32-54-0725apkqyqcjinELDKRFVC [facility] CENTERIVELISSEOhioHealth Van Wert Hospitaltart: 01-30-2025 End: 58-79-6028Vqeqmd outpatient visit 15 minutesCorey Tigist DO Work Phone: noms Tom OBGYNComment on above:Pelvic mass; Complex ovarian cyst; Other ascites; H/O malignant neoplasm of rectum, rectosigmoid junction, and anus; H/O primary malignant neoplasm of urinary bladderStart: 01-30-2025 End: 03-41-3623Nhglsl flowsheetCorey Tigist DO Work Phone: [facility] OBGYNStart: 01-30-2025 End: 18-31-6173Rufdiq flowsheetCorey Tigist DO Work Phone: [facility] OBGYNStart: 01-30-2025 End: 67-15-7212wewiidvwasDBBPW Walter AvailableStart: 01-29-2025 End: 36-25-5758Leozjyrrz department patient visitMARLIZ PRADOMercy Health Willard Hospitaltart: 01-29-2025 End: 25-04-1087Qbywzll encounter procedurePm Pre-Admission Testing [address] [place] [address] - Pre AdmitComment on above:Preop examination (Primary Dx); Hypertension, unspecified typeStart: 01-29-2025 End: 31-07-3477Zjxnooddlhglw examination donePm[address] SystemStart: 01-29-2025 End: 31-91-1087xdfozbzfnvJFOXU M SOMMERSMercy Health Willard Hospitaltart: 96-26-6000Dsetjtgsl for other preprocedural examinationANAYELI GRISSOMMercy Health Willard Hospitaltart: 01-29-2025 End: 53-95-2105Cvgkrgbkl encounterAnayeli Grissom MD Work Phone: [facility] Genito-Urinary SurgeonsStart: 22-27-3156Xpe-patient / Non-visitGillian CuevaChristian Hospital Work Phone: Start: 01-22-2025 End: 84-42-6050moqxdopinbJgzf AsaadFacility:[facility] Start: 80-17-7045Wrb-patient / Non-visitDimple Caraballo MD-[facility] Work Phone: Start: 01-09-2025 End: 27-69-6380Mvlhtomlk encounterAnayeli Grissom MD Work Phone: [facility] Genito-Urinary SurgeonsStart: 70-98-0469Hgd-patient / Non-visitEmily Robles MD-[facility] Work Phone: Start: 12-28-2024 End: 17-31-9856Lbwnvdd encounter Dulce Maria Caraballo MD-[facility] Main [place] Work Phone: Start: 12-28-2024 End: 67-80-8822nuzicbizkjXsmnci E Braun MD Work Phone: [facility] Work Phone: Start: 12-27-2024 End: 87-85-0174lovasublqxThxget E Braun MD Work Phone: [facility] Work Phone: Start: 12-27-2024 End: 43-96-7272Soqnhyz encounter procedureDimple Caraballo MD-[facility] Work Phone: Start: 12-25-2024 End: 78-97-0494Vrkuqdkfjx and management of inpatientTIMDEANN Medrano [facility] Systemtart: 12-24-2024 End: 65-34-6273lpukkfumolCre Pat Phone Call Provider [address] [place] [address] - [facility] AdmitStart: 12-21-2024 End: 06-78-6601mszgozyjklZIPWHUY G [facility] HospitalStart: 12-11-2024 End: 44-90-3103xozztianpbTdhfjs E Braun MD Work Phone: [facility] Work Phone: Start: 12-11-2024 End: 13-58-4044Atmsaxb encounter procedureKate Prado MD-[facility] Scan Main [place] Work Phone: Start: 11-19-2024 End: 55-27-4207sqwferevxvCqkypl E Braun MD Work Phone: [facility] Work Phone: Start: 11-19-2024 End: 82-04-2133Bhzqkzs encounter procedureKate Praod MD-[facility] Work Phone: Start: 05-01-2024 End: 53-86-7456czcrhmlxwhIffqwcalo Lance PTNOMS CI PTComment on above: Vertigo (Primary Dx)Start: 04-24-2024 End: 05-29-8832Xftebz flowsheetSammantha Lance PTNOMS CI PTStart: 04-24-2024 End: 32-73-6955Oefpxn flowsheetSammantha Lucas PTNOMS CI PTStart: 04-24-2024 End: 00-38-7873llhnghbfmjGklzvikvh Lucas PTNOMS CI PTComment on above: Vertigo (Primary Dx)Start: 04-19-2024 End: 62-45-6474sxklmisewwUfdfuemzl Lucas PTNOMS CI PTComment on above: Vertigo (Primary Dx)Start: 04-19-2024 End: 78-43-7028Chiwpn flowsheetSammantha Lucas PTNOMS CI PTStart: 04-19-2024 End: 00-64-1350Lwotdo flowsheetSammantha Lucas PTNOMS CI PTStart: 04-09-2024 End: 29-68-5171cyeiemdkzfZwgwpwyj Talal SarminiFacility:[facility] Centerus DHStart: 04-09-2024 End: 50-87-6391Dwurtet encounter procedureMugeri Jacobi [phone]-SpffwWilson [address] [facility] Start: 12-19-2023 End: 13-19-0406hgusrndlznBlt Pat Phone Call Provider [address] [place] [address] AdmitStart: 06-37-1833Zvrxcnp encounter procedureKate Prado MD Work Phone: [facility] Centertart: 05-11-2023 End: 24-13-3442dvddqtzqifGjeilx Braun Other [facility] [place] Other Start: 78-01-3840Mxwbakiby encounterKate Donaldson [facility] Tylertart: 05-05-2023 End: 82-14-9783dwdinykapuYhllnt Braun Other [facility] [place] Other Start: 88-45-3568Ibruzi outpatient visit 15 minutes Kate Donaldson [facility] ClinicStart: 04-08-2023 End: 43-51-5293Hvlwfmg encounter procedureAshely Lamasz [phone]-XkbouWilson Street [facility] Start: 03-25-2023 End: 69-18-8528gqcgwxyivuAGZQUH M [facility] AmbulatoryStart: 03-25-2023 End: 40-11-8501Njehwz outpatient visit 25 minutesEleazar Murray MD Work Phone: [facility] Hospitalment on above:Essential hypertension, benign (Primary Dx); Mixed hyperlipidemia; Atypical chest pain; Class 2 obesity with body mass index (BMI) of 35.0 to 35.9 in adult, unspecified obesity type, unspecified whether serious comorbidity presentStart: 03-14-2023 End: 64-64-1126wczzcfltaaHkeunu Braun Other [employer] [facility] [place] Other Start: 29-55-0233Ywvdugeyw encounterKate [facility] ClinicStart: 03-08-2023 End: 56-19-8965wlfzfabevpNuydhf Braun Other [employer] Other Start: 61-34-6636Uzievujyl encounterKtae Lilly [facility] ClinicStart: 03-04-2023 End: 53-11-4025jjzvdpmbgwGtjxgp Braun Other [employer] [place] Other Start: 71-22-8512Ddxosl outpatient visit 15 minutes Kate [facility] ClinicStart: 64-82-1394USGTGPKBG, Provider: Eleazar Murray, Status: Pen, Time: 2:00 Marylu Prado Work Phone: [phone]-Cndiz [facility] DO Work Phone: Start: 70-22-3126kcscuryajaHyulatoryDr. Kate Prado Facility:[id number]: 30-41-9346Jmtrcp consultation new/estab patient 80 minKate Prado Work Phone: [phone]-Kkevb [facility] [address] DO Work Phone: Start: 43-55-4128ngfcjbgnesPdltyt Murray Facility:[id number]: 41-27-1638dwqduqrqoyUuHeriberto Chilel Myrtlecility:CStart: 01-17-2023 End: 90-90-5551qavegkdpkbLnxsid Braun Other [employer] [place] Other Start: 36-57-6199Olbjim outpatient visit 15 minutes Kate Mendoza [facility] ClinicStart: 01-11-2023 End: 90-88-6224qpbwxndxqiZcbwih Braun Other [employer] [place] Other Start: 09-65-5728Crwlwhfcp encounterTerriliz DixonMarcela [facility] ClinicStart: 01-07-2023 End: 05-16-4942Ajcqdpv encounter procedureBemaricarmen Worthy [phone]-WunxcWilson Street [facility] Start: 01-06-2023 End: 22-10-6314vhtxktfprkQfauvr Braun Other [facility] [place] Other Start: 84-50-2995Qctwvs outpatient visit 15 minutes Kate [facility]endoza [facility] ClinicStart: 12-03-2022 End: 65-55-2636Dzbxrrp encounter procedureBemaricarmen Worthy [phone]-VhjecWilson Street [facility] Start: 09-03-2022 End: 99-31-1193Htubxed encounter procedureBemaricarmen Worthy [phone]-NbzuyWilson Street [facility] Start: 08-17-2022 End: 82-46-4407Cdt Drop offMaher SALAM [facility] Start: 07-28-2022 End: 41-91-3220ogcvsnyzjhWbeuec Braun Other [employer] [place] Other Start: 81-81-7910Minvvsspq encounterMarcia EveHarrison Community Hospital ClinicStart: 07-20-2022 End: 08-29-2898Jxv Drop offMaher SALAM [facility] Start: 07-15-2022 End: 39-95-8136Fjlwkta encounter procedureMaher SALAM [facility] Start: 07-15-2022 End: 19-76-0118Badcuhz encounter procedureMaher SALAM [phone]-FwrauWilson Street [facility] Start: 07-13-2022 End: 58-11-6363ittawuwcwoMnqvet Eve Other [employer] [place] Other Start: 83-28-1902Idmjggwzn encounterMarcia EveHarrison Community Hospital ClinicStart: 07-12-2022 End: 22-67-4088vpgtyofqaxWV KATE E BRAUNFacility:J4Wmvqx: 07-06-2022 End: 18-82-7983vmlnzemzzlYhaxct Prado Other [employer]Be[employer] [place] Other Start: 73-12-6876Fnqznbgpo encounterMarcia EveHarrison Community Hospital ClinicStart: 45-54-5341Lhkmjlc encounter procedureMarcia EveHarrison Community Hospital ClinicStart: 07-05-2022 End: 34-59-1512pdhgflxeyqZA KATE Garrison BRAUNFacility:L3Cfved: 09-21-2021 End: 93-00-5732ilcxgckmjxTA KATE Garrison BRAUNFacility:H1 Procedures DateProcedureProcedure DetailPerforming ClinicianStart: 27-74-8353Uozlyh-up visitFollow-upCOURTPATSY PAYNEStart: 68-22-0910Kehea depression screening assessmentShadia Goode RNStart: 58-33-4950Mxaakhpr screenELENITA RIGGSIComment on above:Performed By: #### TSC #### [facility] ([facility]) [address] [place] [address] VIRStart: 81-63-9444Qqwgp typing serologic Meagan Fowler MD Work Phone: Start: 27-37-6043HDKSVNDP Leon Fowler MD Work Phone: Start: 28-70-5758Lufkv count complete auto&auto difrntl Darren Sanders MD Work Phone: start: 34-39-7836Nkyer of ammoniaElenita Fowler MD Work Phone: Start: 37-76-3937Ldtouqlsyet tumor antigen quantitative ca 125Elenita Fowler MD Work Phone: Start: 12-37-4452Jmkyphwbknnznlfl antigen ceaKate Prado MD Work Phone: Comment on above:Nonsmokers <3.9 Smokers <5.6Roche Diagnostics Electrochemiluminescence Immunoassay(ECLIA)Values obtained with different assay methods or kitscannot be used interchangeably. Results cannot beinterpreted as absolute evidence of the presence orabsence of malignant disease.Start: 70-62-9726Rsedwiboxk antibody IgA levelKate Prado MD Work Phone: Start: 91-81-1400Qxpfyezwx A virus antibody, IgM type Kate Prado MD Work Phone: Comment on above:A negative anti-HAV IgM result suggests no recent orcurrent HAV infection.Start: 75-89-8018Npjlytnnk B core antibody measurementKate Prado MD Work Phone: Start: 85-89-5782Anmfvxqvh B core antibody measurement, IgM typeKate Prado MD Work Phone: Comment on above:Performed at: [facility] [employer] [id number] Director: Cm Purcell PhD, Phone: [phone]: 70-73-9498Xqten immunodeficiency virus antibody testKate Prado MD Work Phone: Comment on above:HIV-1/HIV-2 antibodies and HIV-1 p24 antigen were NOTdetected. There is no laboratory evidence of HIV infection.HIV NegativePerformed at: [facility] [employer] [id number] Director: Cm Purcell PhD, Phone: [phone]: 12-11-2024 Computed tomography of abdomen and pelvis with contrastKate Prado MD Work Phone: Start: 63-99-7882DzwejmmpnufuldnymRdovlnwi Sarmini Start: 87-41-6624ZmvdqexztaaRvnpki Ibrahim MD Work Phone: Start: 67-41-3684UymnkjtysqjRcja Steinmetz Start: 94-18-7961EofwkpyssfyNbm 1Start: 04-01-2020 Cataract extraction and insertion of intraocular lensMaher SALAM Cataract surgeryMarcia E Prado Work Phone: Cataract surgeryMuhammad Sarmini Hernia repairMarcia E Prado Work Phone: Hernia repairMuhammad Sarmini HysterectomyMarcia E Prado Work Phone: HysterectomyMuhammad Sarmini Laboratory test result abnormalOther abnormal tumor markersElenita Fowler MD Work Phone: Laboratory test result abnormalOther abnormal tumor markersElenita Fowler MD Work Phone: Procedure on lymph nodeMarcia E Prado Work Phone: Total colonoscopyMarcia E Prado Work Phone: Comment on above:2022; Plan of Treatment DateCare ActivityDetailAuthorStart: 08-75-1314Mtbyprjvt for malignant neoplasm of colonMercy Health [facility] Hospital: 15-16-7891Qedentakm for malignant neoplasm of colonColonoscopyProMedica Health SystemStart: 03-04-2026 Adult BMI ScreeningAdult BMI ScreeningProMedica Health SystemStart: 03-04-2026 Tobacco ScreeningTobacco ScreeningProMedica Health SystemStart: 55-11-7381Bfiiw BMI ScreeningAdult BMI ScreeningProMedica Health SystemStart: 19-84-1479Wtalrkg ScreeningTobacco ScreeningProMedica Health SystemStart: 27-02-5807Auaot BMI ScreeningAdult BMI ScreeningProMedica Health SystemStart: 25-38-0612Zpdclacgfz ScreeningDepression ScreeningProMedica Health SystemStart: 46-88-5665Ozbzgei ScreeningTobacco ScreeningProMedica Health SystemStart: 98-27-4545Anjozbw ScreeningTobacco ScreeningProMedica Health SystemStart: 72-26-5645Dcznz BMI ScreeningAdult BMI ScreeningProMedica Health SystemStart: 97-61-8297Vgaiwpf ScreeningTobacco ScreeningProMedica Health SystemStart: 60-78-5106Ypjyc BMI ScreeningAdult BMI ScreeningProMedica Health SystemStart: 81-55-0445Qnopdqk ScreeningTobacco ScreeningProMedica Health SystemStart: 23-92-4256Pogil BMI ScreeningAdult BMI ScreeningProMedica Health SystemStart: 84-06-6382Lvyjopc ScreeningTobacco ScreeningProMedica Health SystemStart: 12-69-7397Drdua BMI ScreeningAdult BMI ScreeningProMedica Health SystemStart: 22-55-0492Xyhcqzz ScreeningTobacco ScreeningPremier Health [facility] SystemStart: 77-64-9080Sposzpp ScreeningTobacco ScreeningPremier Health [facility] SystemStart: 72-09-8589Dngiu BMI ScreeningAdult BMI ScreeningPremier Health [facility] SystemStart: 04-23-2025 End: 84-69-8857zgjhhmetpt78/16/2025 1:00 PM EST Infusion Felicita Perez [facility] - Medical Oncology [address] [place] [phone] Felicita Perez [facility] - Medical OncologyStart: 04-16-2025 End: 67-67-3676hbstvedogx25/09/2025 1:00 PM EST Infusion Felicita Perez [facility] - Medical Oncology [address] [place] [phone] Felicita Perez [facility] Medical OncologyStart: 04-09-2025 End: 16-28-9780qptgwrfyqg77/02/2025 1:00 PM EST Infusion Felicita Perez [facility] - Medical Oncology [address] [place] [phone] Felicita Perez [facility] Medical OncologyStart: 04-02-2025 End: 18-92-2018mfpmwofeiy01/25/2025 1:00 PM EST Infusion Felicita Perez [facility] - Medical Oncology [address] [place] [phone] Felicita Preez [facility] - Medical OncologyStart: 03-26-2025 End: 43-07-2866cigriznfrz33/18/2025 1:00 PM EST Infusion Felicita Perez [facility] - Medical Oncology [address] [place] [phone] Felicita Perez [facility] - Medical OncologyStart: 03-19-2025 End: 89-29-9145Tfnkshfp identified in Urine by CultureProMedica Work Phone: Comment on above:Expected: 03/19/2025, Expires: 03/19/2026Start: 03-19-2025 End: 44-31-6212xnolwstfvc05/11/2025 1:00 PM EST Infusion Felicita Camarillo Chris [facility] - Medical Oncology [address] [place] [address] Felicita Perez [facility] - Medical OncologyStart: 03-08-2025 End: 36-68-6342eqyarqdlha61/31/2025 11:00 AM EDT Support Visit [facility] [address] [place] [address] [place] [address] Joyce Dockery MD [address] [place] [address] [facility]-Urinary SurgeonsStart: 03-07-2025 End: 42-15-3764WU Chest PA and LateralX-ray chest 2 views Imaging Routine Malignant neoplasm of overlapping sites of bladder ([facility]-HCC) Expected: 03/07/2025, Expires: 03/07/2026[facility] Work Phone: Comment on above:Expected: 03/07/2025, Expires: 03/07/2026Start: 03-04-2025 End: 42-53-5088Doqtlcn encounter ywhqfclwu24/27/2025 1:30 PM EDT Office Visit [facility], A Department of [facility] [address] [place] [address] Elenita Fowler MD [address] [place], [place] [id number] [facility] Gynecology Oncology, A Department of [facility] Centertart: 79-18-9526Bwcqc-1-fetoprotein.tumor marker [Mass/volume] in Serum or Plasma [facility] Centertart: 02-26-2025 End: 24-35-8776Nviibasmyzwp consultation with clqpcjz4602/26/2025 2:00 PM EDT Telemedicine [facility] [address] [place] [phone] Anayeli Grissom MD [address] [place] [address] [facility] Physicians Genito-Urinary SurgeonsStart: 02-26-2025 End: 21-24-0896Bpxxfnk encounter fqzzibppd63/21/2025 10:30 AM EDT Office Visit Felicita L Chris [facility] - Medical Oncology [address] [place] [phone] Federica Bloom PA [address] [facility], [place] [phone] (Work) Felicita L Chris [facility] - Medical OncologyStart: 02-18-2025 End: 71-79-8976Apjwvxegkqcc consultation with labrilf5302/18/2025 8:30 AM EDT Telemedicine [facility] Gynecology Oncology, A Department of [facility] [address] [place] [phone] Elenita Fowler MD [address] [place] [address] [facility] Gynecology Oncology, A Department of [facility] Centertart: 02-14-2025 End: 70-63-3794Zhjgukbka to same day surgery mxryrj7202/14/2025 10:30 AM EDT - 02/14/2025 2:30 PM EDT Surgery [facility] Surgery [address] [place] [phone] Elenita Fowler MD [address] [place] [address] LAPAROTOMY EXPLORATORY [15655 (CPT )][facility] SurgeryComment on above: LAPAROTOMY EXPLORATORY [38546 (CPT )]Start: 02-14-2025 End: 92-17-1133NWXPRMRQES RETROGRADE PYELOGRAMCYSTOSCOPY RETROGRADE PYELOGRAM OVARIAN MASS BILATERAL, BLADDER CANCER 02/14/2025 10:30 AM EDTPSamaritan [facility] SystemStart: 02-14-2025 End: 75-08-4278Wwvdzzurveyufaceb with biopsyBIOPSY BLADDER OVARIAN MASS BILATERAL, BLADDER CANCER 02/14/2025 10:30 AM EDTTOLEDO SURGERYStart: 02-14-2025 End: 82-15-5617Ystfgfyfhnz laparotomy celiotomy w/wo biopsy spxLAPAROTOMY EXPLORATORY OVARIAN MASS BILATERAL, BLADDER CANCER 02/14/2025 10:30 AM EDTTOLEDO SURGERYStart: 02-14-2025 End: 12-21-5613NJDYCWZS-OOPHORECTOMYSALPINGO-OOPHORECTOMY OVARIAN MASS BILATERAL, BLADDER CANCER 02/14/2025 10:30 AM [facility] Manortart: 88-31-2234Farabhjack hospital visit by [facility] - SurgeryComment on above:Adnexal mass (Primary Dx)Start: 02-12-2025 End: 26-09-0585Bzsogemjt to same day surgery ezctat3602/12/2025 10:00 AM EDT - 02/12/2025 10:45 AM EDT Surgery [facility] - Surgery [address] [place] [address] Anayeli Grissom MD [address] [place] [address] CYSTOSCOPY RETROGRADE PYELOGRAMAdena [facility]ayette [facility] Center - Surgery Comment on above:CYSTOSCOPY RETROGRADE PYELOGRAMStart: 02-12-2025 End: 47-00-6298ZFSKETJLSI RETROGRADE PYELOGRAMCYSTOSCOPY RETROGRADE PYELOGRAM Malignant neoplasm of overlapping sites of bladder ([facility]-H[facility]) 02/12/2025 10:00 AM EDMiami Valley Hospital SystemStart: 02-12-2025 End: 24-23-1870Dediegtmbgykmtmxq with biopsyCYSTOSCOPY BIOPSY BLADDER Malignant neoplasm of overlapping sites of bladder (CMS-HCC) 02/12/2025 10:00 AM EDT [facility]: 62-63-3658Eufcdtkszg hospital visit by ezqyllzrg47/07/2025 10:00 AM EDT Hospital Encounter [facility] [address] [place] [address] Anayeli Grissom MD [facility] [place] [address] [facility]Start: 02-11-2025 End: 46-05-6250Oornroerlgho consultation with gnxveur2202/11/2025 10:30 AM EDT Telemedicine [facility] Gynecology Oncology, Department of [facility] [address] [place] [address] Elenita Fowler MD [address] [place] [address] [facility] Gynecology Oncology, A [facility]: 02-11-2025 End: 67-36-7000Aayoyjm encounter peqdmtgmn35/06/2025 8:45 AM EDT Procedure visit [facility] Pre-Admission Clinic On [address] [address]SmvHjifcl [facility] On [facility] Start: 02-08-2025 End: 59-44-9443Yays complete W/Strain ImagingEcho complete W/Strain Imaging Echocardiography Routine Pelvic mass Complex ovarian cyst Other ascites Cirrhosis of liver with ascites, unspecified hepatic cirrhosis type (CMS-HCC) Preop testing Expected: 02/08/2025, Expires: 02/08/2026[facility] Work Phone: Comment on above:Expected: 02/08/2025, Expires: 02/08/2026Start: 02-08-2025 End: 22-22-6798Hfprrvv encounter tflpgizbl85/03/2025 1:15 PM EDT Appointment [facility] - CardioVascular [address] [place] [address] Elenita Fowler MD [address] [place] [address] [facility] Division [facility] - CardioVascularStart: 02-05-2025 End: 07-75-3364Awlabsl encounter xxstsqnuc51/30/2025 8:30 AM EDT Appointment [facility] US Imaging [address] [place] [address] [facility] US ImagingStart: 36-55-2121Mfqxxwwuit hospital visit by aojlvtzqn45/30/2025 8:00 AM EDT Hospital Encounter [facility] Imaging [address] [place] [address] [facility]Start: 02-04-2025 End: 97-91-6129Yhhrofyw for paracentesis of PeritoneumIR paracentesis diagnostic treatment with guidance Imaging Routine Pelvic mass Complex ovarian cystOther ascites Other abnormal tumor markers Cirrhosis of liver with ascites, unspecified hepatic cirrhosis type (CMS-HCC) Abnormal findings on diagnostic imaging of liver and biliary tract Expected: 02/04/2025, Expires: 02/04/2026 [facility] Work Phone: Comment on above:Expected: 02/04/2025, Expires: 02/04/2026Start: 02-04-2025 End: 81-17-4309Anfxuymo for thoracentesis of ChestIR thoracentesis with guidance left Imaging Routine Pelvic mass Complex ovarian cyst Other ascites Other abnormal tumor markers Cirrhosis of liver with ascites, unspecified hepatic cirrhosis type (CMS-HCC) Abnormal findings on diagnostic imaging of liver and biliary tract Expected: 02/04/2025, Expires: 02/04/2026[facility] Comment on above:Expected: 02/04/2025, Expires: 02/04/2026Start: 01-30-2025 End: 36-01-6138Omxzwpj encounter pjcpmcytn60/24/2025 2:10 PM EDT Office Visit HAILEE BARRETO [address] [place] [address] [place] [address] Florentin Escoto DO [address] [facility] [place] [address] ArrivedBALDOWV Tom OBGYNComment on above:ArrivedStart: 01-30-2025 End: 79-34-0051PVT tumor markerAFP tumor marker Lab Routine Pelvic mass Other ascites H/O malignant neoplasm of rectum, rectosigmoid junction, and anus H/O primary malignant neoplasm of urinary bladder Expected: 01/30/2025 (Approxi mate), Expires: 01/30/2026[facility] HealthcareComment on above:Expected: 01/30/2025 (Approximate), Expires: 01/30/2026Start: 01-30-2025 End: 13-40-6225OD 125CA 125 Lab Routine Pelvic mass Other ascites H/O malignant neoplasm of rectum, rectosigmoid junction, and anus H/O primary malignant neoplasm of urinary bladder Expected: 01/30/2025 (Approximate), Expires: 01/30/2026[facility] HealthcareComment on above:Expected: 01/30/2025 (Approximate), Expires: 01/30/2026Start: 01-30-2025 End: 35-77-1642Mvswixnatmhvvijy Ag [Mass/volume] in Serum or PlasmaCEA Lab Routine Pelvic mass Other ascites H/O malignant neoplasm of rectum, rectosigmoid junction, and anus H/O primary malignant neoplasm of urinary bladder Expected: 01/30/2025 (Approximate), Expires: 01/30/2026[facility] HealthcareComment on above: Expected: 01/30/2025 (Approximate), Expires: 01/30/2026Start: 01-30-2025 End: 63-01-3072UMF, tumor markerHCG, tumor marker Lab Routine Pelvic mass Other ascites H/O malignant neoplasm of rectum, rectosigmoid junction, and anus H/O primary malignant neoplasm of urinary bladder Expected: 01/30/2025 (Approx imate), Expires: 01/30/2026[facility] HealthcareComment on above:Expected: 01/30/2025 (Approximate), Expires: 01/30/2026Start: 01-30-2025 End: 71-14-7690Cvmacda dehydrogenase, isoenzymesLactate dehydrogenase, isoenzymes Lab Routine Pelvic mass Other ascites H/O malignant neoplasm of re ctum, rectosigmoid junction, and anus H/O primary malignant neoplasm of urinary bladder Expected: 01/30/2025 (Approximate), Expires: 01/30/2026[facility] Work Phone: comment on above:Expected: 01/30/2025 (Approximate), Expires: 01/30/2026Start: 03-45-1572BgwdoczgmMercy Health St. Rita's Medical Centertart: 78-92-1009OJYNG-19 Vaccine ( season)COVID-19 Vaccine ( season)[facility] SystemStart: 81-06-5924Swxgwobbx vaccinationProNorth Mississippi Medical Center Health SystemStart: 54-12-8902Zoxrs smooth muscle IgG Ab [Units/volume] in Serum [facility] Medical Centertart: 51-37-3507Khpkwinvuuwyl [Mass/volume] in Serum or PlasmaMercy Health St. Rita's Medical Centertart: 90-73-4622Utxwarljf A virus Ab [Presence] in Serum by ImmunoassayUniversity Hospitals Tripoint Medical Center Start: 14-55-6204Ejdkbfuvk A virus antibody, IgM typeMercy Health St. Rita's Medical Centertart: 21-77-1358Zdashikzg B core antibody measurementMercy Health St. Rita's Medical Centertart: 10-73-9664Otafohese B core antibody measurement, IgM type [facility] Medical Centertart: 77-62-6032Chylpeait B virus surface Ab [Presence] in SerumMercy Health St. Rita's Medical Centertart: 43-80-1083KbC [Mass/volume] in Serum or PlasmaMercy Health St. Rita's Medical Centertart: 55-28-2385Wgugetjyjsr a [Moles/volume] in Serum or PlasmaMercy Health St. Rita's Medical Centertart: 13-34-8494Syfvhcznzdkf M2 IgG Ab [Units/volume] in Serum [facility] Medical Centertart: 12-28-2024 End: 65-19-9907OtvckbbuoMercy Health St. Rita's Medical Centertart: 12-25-2024 End: 23-37-3204ZidsajzgeomkpejwkNRNZTRBAFT Encounter for follow-up surveillance of bladder cancer 12/25/2024 10:49 [address] [facility]TFST[facility] SUR[facility]ERYStart: 04-33-9179Ukbpbre ScreeningTobacco ScreeningPremier Health [facility] SystemStart: 05-08-2024 End: 64-93-7470hfnzmohdjb69/31/2024 8:30 AM EST Treatment [facility] [address] [place] [address] Alley Lucas, PTNOMS CI PTStart: 05-01-2024 End: 88-99-2665vizgfxrjli83/24/2024 10:00 AM EST Treatment [facility] [address] [place] [address] Alley Lucas, PTNOMS CI PTStart: 04-24-2024 End: 71-34-6508ecoscvhvgrWEEV CI PTComment on above:Vertigo (Primary Dx)Start: 04-19-2024 End: 83-86-8545pwzxywcecr62/12/2024 2:30 PM EST Evaluation [facility] [address] [place] [address] Alley Lucas, PT ArrivedNOMS CI PTComment on above:ArrivedStart: 80-52-5108RPHZD-19 Vaccine ()COVID-19 Vaccine ()[facility] Start: 44-16-5417Fvzblzbyn vaccinationNOMS HealthcareStart: 12-20-2023 End: 93-07-3635UeqsrmpaxvpoyznskSCAFDSGNDN Malignant neoplasm of overlapping sites of bladder (CMS-HCC) 12/20/2023 9:55 [address] EDTFST[address] [facility] SURGERYStart: 64-37-9768Kefuv BMI ScreeningAdult BMI ScreeningPremier Health Upper Valley Medical Center SystemStart: 63-04-7208BYFMJ-19 Vaccine ()COVID-19 Vaccine ()[facility] SystemStart: 16-13-7270Ocfvaoelk vaccinationInfluenza Vaccine (#1)[facility]: 64-02-4081WVEQA-19 Vaccine (4 - Pfizer series)COVID-19 Vaccine (4 - Pfizer series)[facility]: 18-89-7430Kxernhrsngkg Vaccine: 65+ Years (2 of 2 - PPSV23 or PCV20)Pneumococcal Vaccine: 65+ Years (2 of 2 - PPSV23 or PCV20)[facility] Start: 45-87-6094Soizzfkdfrnu Vaccine: 65+ Years (2 of 2 - PPSV23 or PCV20) Pneumococcal Vaccine: 65+ Years (2 of 2 - PPSV23 or PCV20)[facility] HealthcareStart: 94-58-8776Gcmekmrcepeq Vaccine: 65+ Years (2 of 2 - PPSV23)Pneumococcal Vaccine: 65+ Years (2 of 2 - PPSV23)[facility] HospitalStart: 31-50-8835Vyejhjsxafdk Vaccine: 65+ Years (2 - PPSV23 or PCV20)Pneumococcal Vaccine: 65+ Years (2 - PPSV23 or PCV20)[facility]: 19-30-9637Tlig Risk ScreeningFall Risk ScreeningPrem[facility] Health [facility] SystemStart: 18-70-1821IRI ( or age 60+ yrs) (1 - Risk 60-74 years 1-dose series)RSV ( or age 60+ yrs) (1 - Risk 60-74 years 1-dose series)[facility] SystemStart: 79-94-1024Mthbja Vaccines (1 of 2)Zoster Vaccines (1 of 2)[facility]: 88-95-6005Chhlattha for malignant neoplasm of breastMammogram [facility]: 82-50-5690NKmA/Tdap/Td Vaccines (1 - Tdap)DTaP/Tdap/Td Vaccines (1 - Tdap)[facility]: 96-82-3267Znstwpnafjupkn of varicella zoster vaccineZoster (Shingles) Vaccine (1 of 2)[facility] SystemStart: 02-71-6989AWwN,Tdap and Td Vaccines (1 - Tdap)DTaP,Tdap and Td Vaccines (1 - Tdap)[facility] SystemStart: 42-28-2484Zplyl BMI Follow Up PlanAdult BMI Follow Up PlanProRegency Hospital Cleveland East SystemStart: 24-55-5635Jbkghuwu mellitus screeningDiabetes ScreeningMercy Health [facility]: 84-96-0037Kryhnxcma C screeningHepatitis C ScreeningMercy Health [facility]: 52-66-0253Enjimnvftr Screening Depression ScreeningProRegency Hospital Cleveland East SystemStart: 48-26-1437Oeexd panelLipid PanelMercy Health [facility] Hospital: 06-27-1953Medicare Annual Wellness VisitMercy Health [facility]: 91-85-3407Inkcsmhwm for malignant neoplasm of colonUnMarymount Hospital: 92-03-1296Gbsjouqwy for osteoporosisBone Density ScanMercy Health Anderson Hospital: 1950 Thyroid stimulating hormone measurementTSMercy Rehabilitation Hospital [facility] City – Oklahoma CityActin smooth muscle IgG Ab [Units/volume] in SerumUniversity Hospitals Tripoint Medical Center End: 05-58-1695Fzcoyzo [Mass/volume] in Serum or PlasmaAlbumin Lab Routine Pelvic mass Complex ovarian cyst Other ascites Other abnormal tumor markers Cirr hosis of liver with ascites, unspecified hepatic cirrhosis type (CMS-HCC) Abnormal findings on diagnostic imaging of liver and biliary tract 1 Occurrences starting 02/04/2025 until 02/04/2026[facility] Nervogrid SystemComment on above:1 Occurrences starting 02/04/2025 until 02/04/2026lpha 1 antitrypsin [Mass/volume] in Serum or PlasmaUniversity Hospitals Tripoint Medical CenterAlpha 1 antitrypsin [Mass/volume] in Serum or PlasmaUniversity Hospitals Tripoint Medical Center Alpha 1 antitrypsin phenotyping [Identifier] in Serum or Plasma by ImmunofixationUniversity Hospitals Tripoint Medical CenterAlpha-1-fetoprotein.tumor marker [Mass/volume] in Serum or PlasmaUniversity Hospitals Tripoint Medical Center End: 46-45-1757Syjzx metabolic 2000 panel - Serum or PlasmaBasic Metabolic Panel Lab Routine Malignant neoplasm of overlapping sites of bladder (CMS-HCC) weekly for 6 Occurrences starting 03/06/2025 until 03/06/2026[facility] Work Phone: Comment on above:weekly for 6 Occurrences starting 03/06/2025 until 03/06/2026 End: 71-13-9125HIT W Auto Differential panel - BloodCBC auto differential Lab Routine Malignant neoplasm of overlapping sites of bladder (CMS-HCC) weekly for 6 Occurrences starting 03/06/2025 until 03/06/2026ProManaged Systemsca Health SystemComment on above:weekly for 6 Occurrences starting 03/06/2025 until 03/06/2026 Ceruloplasmin [Mass/volume] in Serum or PlasmaUniversity Hospitals Tripoint Medical Center Comprehensive metabolic 2000 panel - Serum or PlasmaUniversity Hospitals Tripoint Medical Center End: 03-56-8635Zqsfnnqgqa RBCCrossmatch RBC Blood Bank Routine Pelvic mass Complex ovarian cyst Other ascites Preop testing Cirrhosis of liver with ascites, unspecified hepatic cirrhosis type ([facility]-HCC) Other abnormal tumor markers 1 Occurrences starting 02/08/2025 until 02/08/2026[facility] Work Phone: Comment on above:1 Occurrences starting 02/08/2025 until 02/08/2026T Abdomen and Pelvis WO and W contrast IVFMercy Health Springfield Regional Medical CenterCT guided biopsyUniversity Hospitals Tripoint Medical CenterCT guided percutaneous aspiration of abdomenUniversity Hospitals Tripoint Medical CenterEndomysial antibody IgA levelUniversity Hospitals Tripoint Medical CenterGliadin peptide IgA Ab [Units/volume] in SerumUniversity Hospitals Tripoint Medical CenterGliadin peptide IgG Ab [Units/volume] in SerumUniversity Hospitals Tripoint Medical CenterHepatic function panel [facility] Medical CenterHeva [facility] A virus Ab [Presence] in Serum by ImmunoassayUniversity Hospitals Tripoint Medical CenterHemonroe county medical centertis A virus antibody, IgM type [facility] Medical CenterHepatitis B core antibody measurementUniversity Hospitals Tripoint Medical CenterHepatitis B core antibody measurement, IgM typeUniversity Hospitals Tripoint Medical CenterHemonroe county medical centertis B virus surface Ab [Presence] in SerumUniversity Hospitals Tripoint Medical CenterHeva [facility] B virus surface Ag [Presence] in Serum or Plasma by ImmunoassayUniversity Hospitals Tripoint Medical CenterHeva [facility] C virus IgG Ab [Presence] in Serum or Plasma by ImmunoassayUniversity Hospitals Tripoint Medical CenterHFE gene mutations found [Identifier] in Blood or Tissue by Molecular genetics method NominalUniversity Hospitals Tripoint Medical CenterHomogenous nuclear Ab pattern [Titer] in SerumUniversity Hospitals Tripoint Medical CenterHuman immunodeficiency virus antibody testUniversity Hospitals Tripoint Medical CenterIgA [Mass/volume] in Serum or PlasmaUniversity Hospitals Tripoint Medical CenterIgG [Mass/volume] in Serum or Plasma [facility] Medical CenterLipoprotein a [Moles/volume] in Serum or Plasma [facility] Medical CenterMG Breast - bilateral ScreeningUniversity Hospitals Tripoint Medical CenterMitochondria M2 IgG Ab [Units/volume] in [facility] HospitalMR Abdomen WO and W contrast IVFMercy Health Springfield Regional Medical CenterNuclear Ab [Titer] in [facility] HospitalPatient EducationEsophageal Varices (DC) Gastritis - ED discharge instructions [facility] Diverticulosis Discharge Instructions [facility] Hemorrhoids Discharge Instructions Know your Meds [facility] Colon Polypectomy Discharge Instructions [facility] Work Phone: Tissue transglutaminase IgA Ab [Units/volume] in Serum [facility] Medical CenterTissue transglutaminase IgG Ab [Units/volume] in [facility] Doctors HospitalUS LiverUniversity Hospitals Tripoint Medical CenterUS Thyroid glandUniversity Hospitals Tripoint Medical CenterXR Chest 2 ViewsKaiser Permanente Santa Teresa Medical Center Immunizations Immunization DateImmunizationNotesCare AzthbnkfEarlmays43-91-3475TMKQJ-04 Pfizer (bivalent)Kate Prado Other [phone]-MxgsgWilson [facility] Jxpdbn74-17-7712 COVID-19 Vaccine Pfizer - Documentation Purposes OnlyKate Prado Other [phone]-KtngpWilson Street [facility] Rlijxb95-36-0143 COVID-19 Vaccine Pfizer - Documentation Purposes OnlyKate Prado Other [phone]-DonfmWilson Street [facility] Bmwibt60-61-0753 COVID-19 Vaccine Pfizer - Documentation Purposes OnlyTerrician Prado Other 152-3458Ynbbeg-XsdfwWilson Street [facility] Fznuyj95-97-1869 pneumococcal conjugate vaccine, 13 valentMarcia Prado Other [facility]09-30-2019 pneumococcal conjugate vaccine, 13 valentMarcia Prado Other [phone]-EabaiWilson Street Hospital Digestive HealthNEGATED: Highlighted row has not occurred!04-82-2308pbjrutwyj virus vaccine, unspecified formulationMuhammad Sarmini [phone]-AsfhyWilson Street Hospital Digestive HealthNEGATED: Highlighted row has not occurred!25-81-8610zelmunvqk virus vaccine, unspecified formulationAshely Worthy [phone]-AioqfWilson Street Hospital Digestive HealthNEGATED: Highlighted row has not occurred!17-39-7951xmlsdnevg virus vaccine, unspecified formulationDinorah MORRIS [phone]-AatrsWilson Street Hospital [facility] Payers DatePayer CategoryPayerPolicy ID2025Self-pay2023Medicare [id number] Health InsuranceMEDICAL MUTUAL [id number] Indemnity [id number] 2021Unknown2018Medicare [id number] [id number] 1960 [id number] 2.16.840.1.272862.3.579.2.593 [id number] 2.16.840.1.067724.3.57[id number] 2.16.840.1.805963.3.579.[id number] 2.16.840.1.789583.3.579.2.36223-72-6596Xfphbqg394884643 2.16.840.1.747520.3.579.2.44047-76-0120Kgycnqb950989848 2.16.840.1.064141.3.579.2.[id number] 2.16.840.1.337941.3.579.[id number] 2.16.840.1.117224.3.579.2.31858-07-6066Thclxve16281709 2.16840.1.904384.3.57[id number] 2.16.840.1.518503.3.579.[id number] 2.16.840.1.371557.3.57[id number] 2.16.840.1.349904.3.579.2.52[id number] 2.16840.1.923569.3.579.2.6[id number] 2.16.840.1.000485.3.57[id number] 2.16.840.1.104425.3.579.2.7[id number] 2.16.840.1.092875.3.57[id number] 2.16.840.1.809959.3.579.2.7[id number] 2.16.840.1.419843.3.579.2.2[id number] 2.16.840.1.595316.3.57[id number] 2.16840.1.256558.3.579.2.137506-31-1658Tzvrvyz383973992 2.16840.1.693768.3.579.2.1[id number] 2.16840.1.951768.3.57[id number] 2.16840.1.049921.3.57[id number] 2.16840.1.022549.3.579.2.309918-85-5418Kqiprcu834352696 2.16840.1.852149.3.579.2.750272-69-3308Vvlthhf690622919 2.16840.1.678393.3.579.[id number] 2.16840.1.206442.3.579.2.818431-54-8477Wprjlyp913315409 2.16840.1.708095.3.579.2.690986-93-0433Pgpcyjs811435882 2.16840.1.898250.3.579.2.11[id number] 2.16840.1.548780.3.579.2.996529-83-6983Pjkggjq029107949 2.16840.1.688605.3.579.2.625874-35-8196Suyyugx051326653 2..0.1.257581.3.579.2.6[id number] 2.16.840.1.542536.3.579.2.3825Mxbahsj20718067 2..840.1.509573.3.579.2.531 Icqvppl82272056 2.16.840.1.142399.3.579.2.717Vbpijpt01843041 2.16.840.1.937548.3.579.2.087Hfqopjv33990125 2.16.840.1.572951.3.579.2.531 Social History DateTypeDetailFacilityStart: 07-15-2022 End: 65-69-8528Yxxcgfz smoking statusEx-smoker (finding)[facility] Digestive HealthTobacco smoking statusNeverWilson Street Hospital Digestive HealthStart: 03-25-2023 End: 73-87-5761Odj Assigned At BirthFeGerman Hospitaltart: 03-25-2023 End: 95-79-5510Otzwdr alcohol useSocial alcohol useProVan Wert County Hospitalca Health System Comment on above:3x a week;25 years;Start: 05-09-1981 End: 49-20-6906Wigteat of tobacco useCurrent smokerUnProMedica Memorial Hospital Work Phone: Start: 05-09-1981 End: 95-47-8387Nlmzssz of tobacco useCigarette SmokerUnProMedica Memorial Hospital Work Phone: Start: 03-25-2023 End: 80-59-4835Mtdetni intakeEx-drinker (finding)[facility] Work Phone: Start: 21-51-7503Rynwehj CommentsociallyUnProMedica Memorial Hospital Work Phone: Start: 19-01-4194Qea Assigned At BirthNot on file [facility] Work Phone: Start: 03-15-2023 End: 37-57-0060Ngyqdipq to SARS-CoV-2 (event)Not [facility] Medical CenterTobajackson county memorial hospital – altus smoking status NHISTobacco smoking consumption unknownNOMS HealthcareStart: 12-17-2022 End: 75-18-2606Crwcgjj use and exposureSmokeless tobacco non-userProNorth Mississippi Medical Center Nervogrid SystemStart: 12-22-2022 End: 06-74-9535Geckfhrip beverage intakeCurrent drinker of alcohol (finding) [facility] Nervogrid SystemStart: 92-87-1464Hfpgneq Commentwine/beer & liquor daily, 2 per dayProVan Wert County HospitalZebra Mobile SystemStart: 22-63-6657GklDlutjp (finding)[facility] Medical Centertart: 25-57-2329Lak Assigned At BirthFeProMedica Toledo HospitalHa the [employer] gas, oil, or water [employer] threatened to shut off services in your home in past 12MoNoProNorth Mississippi Medical Center Nervogrid SystemHow often to you have a drink containing alcohol?NeverProMediZebra Mobile SystemNEGATED: Highlighted rowStart: NINFHistory of tobacco usePassive smokerProRegency Hospital [facility] System Medical Equipment Procedure CodeEquipment CodeEquipment Original TextEquipment IdentifierDates CATARACT EXTRACTION W/ INTRAOCULAR LENS Demario Obrien DO 04/01/20 Non Biological Eye L{01}[id number] FDAStart: 04-01-2020 Goals DatePatient GoalDesired Activity/StatePersonal health goalPersonal health goal Personal health goalComment on above: Evaluation of progress towards goal: safe transition home self care with support. Functional Status ZscjOsnbtoayckYvevpcFikrlssx45-65-0733Fckltebxqo StatusN/[facility] Oxdeuz01-76-1956Wnqizphkvk StatusN/[facility] Otnxxn95-29-0003Jlyhyzddwq StatusN/[facility] Ofyrun75-60-2071Cshlofzhlp StatusN/[facility] Dig[facility]ive Zraskh25-51-2838Btdelooqgx StatusN/[facility] Oduttv14-70-5485Ugqljjstex StatusN/[facility] Digestive Health Clinical Notes 07-05-2022 to 03-19-2025 Note Date & ZfbnNaxzEkcfosyb79-51-5525 History of Present illness Narrative* Ritchie Fisher RN - 03/19/2025 1:00 PM EST Pt here for BCG bladder instillation 1 of 6. Procedure explained to patient, pt verbalized understanding and questions answered. Cody catheter inserted using sterile technique. Catheter clamped, BCGinstilled per orders and dwelled for 2 hours. Catheter unclamped and drained, 300 ml of clear yellow urine returned. Cody catheter removed. Pt verbalized understanding of future appointments, pt discharged ambulatory in stable condition. documented in this [facility]10-31-2025 Miscellaneous Notes* Telephone Encounter - Nkechi Palomares LPN - 03/08/2025 1:42 PM EDT Pt.'s BCG tx schedule faxed to Dr. Caraballo's office at [phone]. documented in this [facility]10-31-2025 Telephone encounter Note* Telephone Encounter - Nkechi Palomares LPN - 03/08/2025 1:42 PM EDT Pt.'s BCG tx schedule faxed to Dr. Caraballo's office at [phone]. [facility]10-31-2025 History of Present illness Narrative* Nkechi Palomares LPN - 03/08/2025 11:00 AM EDT Pt. And arrived at this office to sign BCG treatment forms for upcoming scheduled treatments to start on 03/19/25. This nurse explained the procedure to the Patient and her . Forms were signed in agreement for tx. Pt. And had questions that were answered and some that this nurse will have to direct to the Provider. Pt. And aware that MD Eduin is out of theoffice today, but that this nurse will get a message to the Physician and they will be contacted with the answers when they are received. Pt. States that the [facility] did request that she get some blood work completed prior to the tx. This nurse informed her that she also needed to get achest x-ray as well, one week prior to starting the first treatment. They were informed that the blood work and the chest x-ray can be done on the same day. Pt. And stated they understood. Pt.'s questions that were unable to be answered by this nurse: Can she hold the diuretics the day of the BCG tx and resume the next day to prevent the need to urinate during the tx. - This nurse did contact Dr. Dimple Caraballo's office and explained the situation to the legger press operator. She is going to send a message to Dr. Caraballo for him to see if he would be okay with the Pt. Holding the diuretics only on the day of the BCG tx then to resume the next day. This nurse is faxing the tx schedule to their office for Dr. Caraballo to review and give an informed decision. This nurse did give the office phone number to reach back out when Dr. Caraballo has made a decision as to what is best for the Pt. Dr. Grissom; 2. Pt. Will need to have a liver biopsy as well as a paracentesis with Dr. Caraballo. They are not sureof the date or time of the procedures yet. Will the BCG have any adverse effects regarding the biopsy and/or the paracentesis that they should be aware of or that they may need to inform Dr. Caraballo of? 3. If after several BCG treatments and surveillance cystoscopies, is there a chance the length of treatment time can be shortened? When this nurse does hear back from Dr. Caraballo's office, chart, Patient and Dr. Grissom will be updated. Pt. Is aware that the note will be sent to MD Eduin as he is out of the office today(03/08/2025). Please advise. Thank you. Nkechi Palomares LPN Ordering Physician: MD Eduin Supervising Physician: Dr Earle MD documented in [facility] Miscellaneous Notes* Telephone Encounter - Kati Lyman LPN - 03/06/2025 10:47 AM EDT [facility] [place] [facility]; P [facility] Compl[facility]; Kati Lyman LPN Could you schedule patient for bcg weekly x 6 starting wk of 03/18 thanks documented in this encounterUpper [facility]10-29-2025 Telephone encounter Note* Telephone Encounter - Kati Lyman LPN - 03/06/2025 10:47 AM EDT [facility] [place] [facility] Scheduling; P [facility] Compliance; Kati yLman LPN Could you schedule patient for bcg weekly x 6 starting wk of 03/18 thanks [facility] Miscellaneous Notes* Telephone Encounter - Kati Lyman LPN - 03/06/2025 10:42 AM EDT Ordered bcg induction documented in this encounterUpper [facility]10-29-2025 Telephone encounter Note* Telephone Encounter - Kati Lyman LPN - 03/06/2025 10:42 AM EDT Ordered bcg induction [facility] Miscellaneous Notes* Telephone Encounter - Kati Lyman LPN - 03/05/2025 3:29 PM EDT Could you go over bcg with patient and have her sign consent. thanks * Telephone Encounter - Nkechi Palomares LPN - 03/05/2025 3:29 PM EDT Yes, I will give her a call. * Telephone Encounter - Kati Lyman LPN - 03/05/2025 3:29 PM EDT When you see patient have her get a chest x ray done. I placed order. * Telephone Encounter - Nkechi Palomares LPN - 03/05/2025 3:29 PM EDT Pt. Will be coming in tomorrow (Tuesday) 03/08/2025 at 11:00 am - ray to complete the BCG consent forms. documented in this encounterUpper [facility] Center10-28-2025 Telephone encounter Note* Telephone Encounter - Kati Lyman LPN - 03/05/2025 3:29 PM EDT Could you go over bcg with patient and have her sign consent. thanks [facility] Telephone encounter Note* Telephone Encounter - Nkechi Palomares LPN - 03/05/2025 3:29 PM EDT Yes, I will give her a call. [facility] Telephone encounter Note* Telephone Encounter - Kati Lyman LPN - 03/05/2025 3:29 PM EDT When you see patient have her get a chest x ray done. I placed order. [facility] Telephone encounter Note* Telephone Encounter - Nkechi Palomares LPN - 03/05/2025 3:29 PM EDT Pt. Will be coming in tomorrow (Tuesday) 03/08/2025 at 11:00 am - ray to complete the BCG consent forms. [facility] Miscellaneous Notes* Telephone Encounter - Anayeli Grissom MD - 03/05/2025 11:31 AM EDT [place] Please schedule for induction BCG (and maintenance) in [facility] - previously had sent a request for surveillance cysto in 3 months. Please schedule 6 weeksafter completing BCG, [facility] Dx: bladder cancer * Telephone Encounter - Kati Lyman LPN - 03/05/2025 11:31 AM EDT Ordered labs for bcg documented in this encounterUpper [facility] Center10-28-2025 Telephone encounter Note* Telephone Encounter - Anayeli Grissom MD - 03/05/2025 11:31 AM EDT [place] Please schedule for induction BCG (and maintenance) in [facility] - previously had sent a request for surveillance cysto in 3 months. Please schedule 6 weeksafter completing BCG, [facility] Dx: bladder cancer [facility] Telephone encounter Note* Telephone Encounter - Kati Lyman LPN - 03/05/2025 11:31 AM EDT Ordered labs for bcg [employer] [id number] History of Present illness Narrative* Elenita Fowler MD - 03/04/2025 1:30 PM EDT Subjective: Yaa Duggan is a 74 y.o. female who is s/p a ex-lap on BSO in addition to biopsies/cystoscopy with urology on 02/14/25. Pathology for the tubes and ovaries is benign. 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 She is doing well post-operatively. She reports mild amounts of pain she is well relieved with gafa-til-qoggdqh medications. She is having some bowel urgency when she takes Senna, but without senna she sometimes doesn't go for two days. She saw Dr. Caraballo since last visit. Plan is for liver biopsy. She was started on Lasix and spironolactone. Pt feels like she is filling up again - plan is for simultaneous paracentesis. No fevers, chills, N/V, N/T, SOB, vaginal bleeding. She also sees Dr. Robles for follow up here soon. She has not heard from Dr. Grissom yet about next steps for her bladder pathology. Patient was originally a consultation from Dr. Escoto for evaluation and management of pelvic mass. Oncology History Malignant neoplasm of overlapping sites of bladder (CMS-HCC) 02/20/2021 Initial Diagnosis Malignant neoplasm of overlapping sites of bladder (CMS-HCC) 03/17/2021 - Cancer Staged Staging form: Urinary Bladder, AJCC 8th Edition - Clinical stage from 03/17/2021: Stage 0a (cTa, cN0, cM0) - Signed by Anayeli Grissom MD on 03/17/2021 03/17/2021 - Cancer Staged Staging form: Urinary Bladder, AJCC 8th Edition - Pathologic stage from 03/17/2021: Stage 0a (chief talent officer, pN0, cM0) - Signed by Anayeli Grissom MD on 03/17/2021 Yaa Duggan Denies Early satiety Denies Abdominal distention Denies Leg swelling Denies Shortness of breath Denies Vaginal bleeding Denies Change in bowel habits Denies Change in bladder habits Denies Nausea and vomiting All other systems negative, unless specifically noted in HPI. Past Gynecologic History: OB History No obstetric history on file. No LMP recorded. Patient has had an implant. Hormonal Contraceptives No HRT use No History of abnormal pap No Past Surgical History: Procedure Laterality Date BIOPSY BLADDER WITH CAUTERY Bilateral 02/14/2025 Performed by Anayeli Grissom MD at [facility] CATARACT EXTRACTION Bilateral CHOLECYSTECTOMY COLONOSCOPY 2024 egd CYSTOSCOPY N/A 12/25/2024 Performed by Anayeli Grissom MD at [facility] CYSTOSCOPY N/A 12/20/2023 Performed by Anayeli Grissom MD at [facility] CYSTOSCOPY N/A 12/21/2022 Performed by Anayeli Grissom MD at [facility] CYSTOSCOPY N/A 12/22/2021 Performed by Anayeli Grissom MD at [facility] CYSTOSCOPY N/A 06/16/2021 Performed by Anayeli Grissom MD at [facility] CYSTOSCOPY RETROGRADE PYELOGRAM/ WASHINGS BILATERAL Bilateral 02/14/2025 Performed by Anayeli Grissom MD at [facility] CYSTOSCOPY TRANSURETHRAL RESECTION BLADDER TUMOR N/A 03/06/2021 Performed by Anayeli Grissom MD at [facility] SURGERY EYE SURGERY 2019 Cataracts x 2, corneal scraping FOOT OSTEOTOMY W/ PLANTAR FASCIA RELEASE Bilateral HERNIA REPAIR umbilical HYSTERECTOMY IR BIOPSY LYMPH NODE Left 2005 Groin LAPAROTOMY EXPLORATORY N/A 02/14/2025 Performed by Elenita Fowlre MD at [facility] SALPINGO-OOPHORECTOMY Bilateral 02/14/2025 Performed by Elenita Fowler MD at [facility] TUBAL LIGATION YAG CAPSULOTOMY Past Medical History: Diagnosis Date Anemia Arthritis Ascites 2023 Bladder cancer (CMS-HCC) 2020 surgery Cataract Chronic constipation Dental disease implants Diverticulitis of colon Dizziness Cody catheter in place Fractures ankle GERD (gastroesophageal reflux disease) Hypertension Hypothyroidism Liver disease cirrhosis Menorrhagia Ovarian mass 2024 bilateral Rectal cancer (CMS-HCC) 2005 chemo, radiation Uterine fibroid Visual impairment Glasses Family History Problem Relation Age of Onset Lupus Mother Hypertension Father Anesthesia problems Neg Hx Social History Socioeconomic History Marital status: Tobacco Use Smoking status: Former Current packs/day: 0.00 Average packs/day: 0.3 packs/day for 15.0 years (3.8 ttl pk-yrs) Types: Cigarettes Start date: 1983 Quit date: 1998 Years since quittin.8 Passive exposure: Never Smokeless tobacco: Never Vaping Use Vaping status: Never Used Substance and Sexual Activity Alcohol use: Not Currently Drug use: Never Sexual activity: Defer Social Drivers of Health Financial Resource Strain: Low Risk (02/26/2025) Overall Financial Resource Strain (CARDIA) Difficulty of Paying Living Expenses: Not hard at all Food Insecurity: No Food Insecurity (02/26/2025) Hunger Screening Food Insecurity - Worry: Never True Food Insecurity - Inability: Never True Transportation Needs: No Transportation Needs (02/26/2025) PRAPARE - Transportation Lack of Transportation (Medical): No Lack of Transportation (Non-Medical): No Interpersonal Safety: Not At Risk (02/14/2025) Humiliation, Afraid, Rape, and Kick questionnaire Fear of Current or Ex-Partner: No Emotionally Abused: No Physically Abused: No Sexually Abused: No Housing Instability: Low Risk (02/26/2025) Housing Instability Housing Instability: No Review of Symptoms: Pertinent items are noted in HPI. Objective: BP 122/78 Pulse 72 Resp 16 Ht 165.1 cm (5' 5 ) Wt 91.2 kg (201 lb) SpO2 98% BMI 33.45 kg/m ECO- Symptomatic; fully ambulatory General appearance: alert, appears stated age and cooperative Head: Normocephalic, without obvious abnormality, atraumatic Lungs: clear to auscultation bilaterally Heart: regular rate and rhythm, S1, S2 normal, no murmur, click, rub or gallop Abdomen: soft, nontender, vertical midline incision healing well without dehiscence or sign of infection. Inferior wound with steri-strips placed at last visit. Extremities: extremities normal, atraumatic, no cyanosis or edema Pulses: 2+ and symmetric Skin: Skin color, texture, turgor normal. No rashes or lesions Lymph nodes: Cervical, supraclavicular, and axillary nodes normal. Neurologic: Grossly normal Labs: Lab Results Component Value Date WBC 5.2 02/18/2025 HGB 9.2 (L) 02/18/2025 HCT 28.2 (L) 02/18/2025 MCV 78 (L) 02/18/2025 PLT 183 02/18/2025 Lab Results Component Value Date GLU 148 (H) 02/18/2025 CALCIUM 8.2 (L) 02/18/2025 SODIUM 136 02/18/2025 K 3.7 02/18/2025 CO2 24 02/18/2025 BUN 24 02/18/2025 CREATININE 1.11 (H) 02/18/2025 Lab Results Component Value Date CA125 530 (H) 02/04/2025 Pathology/Cytology Results Procedure Component Value Units Date/Time Clinical Pathology Review [[id number]] Collected: 02/18/251356 Specimen: Blood, Venous; Blood, Venous Updated: 02/18/251838 Case Report -- Clinical Pathology Report Case: [id number] Authorizing Provider: Vidya Desai MD Collected: 02/18/20251356 Ordering Location: [facility] Received: 02/18/2025 135 - GEN 6 Acute Pathologist: Tj Cheatham MD Specimens: 1) - Blood, Venous 2) - Blood, Venous Final Diagnosis -- Polyclonal hypergammaglobulinemia. Mild hypoalbuminemia. Clinical Pathology Review [[id number]] Collected: 02/18/251356 Specimen: Blood, Venous; Blood, Venous Updated: 02/18/251838 Case Report -- Clinical Pathology Report Case: [id number] Authorizing Provider: Vidya Desai MD Collected: 02/18/20251356 Ordering Location: [facility] Received: 02/18/2025 1357 - GEN 6 Acute Pathologist: Tj Cheatham MD Specimens: 1) - Blood, Venous 2) - Blood, Venous Final Diagnosis -- Polyclonal hypergammaglobulinemia. Mild hypoalbuminemia. Surgical Pathology [[id number]] Collected: 02/14/25 114 Specimen: Tissue from Bladder, Tissue from Bladder, Tissue from Bladder, Tissue from Bladder, Tissue from Fallopian Tube and Ovary, Tissue from Pelvis, Tissue from Fallopian Tube and Ovary Updated: 02/26/25 1436 Case Report -- Surgical Pathology Report Case: [id number] Authorizing Provider: Elenita Fowler MD Collected: 02/14/2025 114 Ordering Location: [facility] Received: 02/14/2025 1447 - Surgery Pathologist: Keily Meyers MD Intraop: Naveen Forte MD Specimens: 1) - Bladder, POSTERIOR BLADDER WALL BIOPSY 2) - Bladder, LEFT LATERAL WALL BIOPSY 3) - Bladder, RIGHT LATERAL WALL BIOPSY 4) - Bladder, BLADDER DOME 5) - Fallopian Tube and Ovary, LEFT TUBE AND OVARY FOR FROZEN 6) - Pelvis, REMNANT OF LEFT IP 7) - Fallopian Tube and Ovary, RIGHT TUBE AND OVARY Final Diagnosis -- Posterior bladder wall, biopsy: Benign bladder mucosa with cystitis cystica Left lateral bladder wall, biopsy: Benign bladder mucosa with cystitis cystica Right lateral bladder wall, biopsy: Benign bladder mucosa with cystitis cystica Bladder dome, biopsy: Partially denuded mucosa with CARCINOMA IN SITU (CIS) Left fallopian tube and ovary, Salpingo-oophorectomy: BENIGN: Ovary with mucinous cystadenoma Fallopian tube not identified in this specimen Remnant of left IP, excision: Fibroadipose tissue with calcified vasculature and areas of fallopian tube epithelium Right fallopian tube and ovary, salpingo-oophorectomy: Atrophic ovary and unremarkable fallopian tube Gross Description -- 1. Received in formalin, labeled DUGGAN, posterior bladder wall biopsy brown- krishnamurthy, rubbery soft tissue fragments that are 0.2 and 0.3 cm in greatest dimension. The specimen is filtered and entirely submitted in 1 cassette. (1, ns, [id number], m8.1) MW 2. Received in formalin, labeled DUGGAN, left lateral wall biopsy is a 0.2 cm fnin-krishnamurthy, rubbery soft tissue fragment. The specimen is filtered and entirely submitted in 1 cassette. (1, ns, [id number], m8.1) MW 3. Received in formalin, labeled DUGGAN, right lateral wall biopsy is a 0.2 cm finn-krishnamurthy, rubbery soft tissue fragment. The specimen is filtered and entirely submitted in 1 cassette. (1, ns, [id number], m8.1) MW 4. Received in formalin, labeled DUGGAN, bladder dome is a 0.2 cm finn-krishnamurthy, rubbery soft tissue fragment. The specimen is filtered and entirely submitted in 1 cassette. ([1], [ss/ns], [id number], m8.1) MW 5. Received fresh for frozen analysis, labeled OLGA LIDIA, left tube and ovary is a 1620 g intact ovary, 15 x 12 x 6 cm and entirely cystic. The capsular surface is yellow-finn, smooth and glistening with no excrescences identified. The ovary is sectioned to demonstrate a 12 cm uniloculated cyst filled with hemorrhagic serous fluid. The cyst lining is smooth and glistening with no solid components or papillary excrescences identified. Day Care Supervisor section is submitted for frozen analysis, with the residual tissue in cassette FSA. The mesovarium is remarkable for a 4.5 cm cauterized area with no discrete fimbria or lumen identified. Day Care Supervisor sections are submitted in cassettes A-K, as: A ovary frozen section B-C serially section fibrous area of possible adherent fallopian tube D-K residential sales representative ovary (11, ss, [id number], m8.1) MW 6. Received in formalin, labeled OLGA LIDIA, remnant of left IP is a 2.8 x 2.5 x 1.5 cm finn-krishnamurthy, hemorrhagic soft tissue fragment. Sectioning demonstrates fibrous cut surfaces with prominent vasculature. Day Care Supervisor cross-sections are submitted in cassettes A-B. (2, ss, [id number], m8.1) MW 7. Received in formalin, labeled OLGA LIDIA, right tube and ovary is a rubbery congested fimbriated fallopian tube, 4 x 1.1 cm and an attached rubbery ovary, 1.8 x 1 x 0.5 cm. The serosal surface of thefallopian tube is purple-krishnamurthy finn, congested smooth and glistening and sectioning demonstrates a patent lumen. The ovary is yellow-krishnamurthy, smooth and glistening and sectioning demonstrates fibrotic cut surfaces. Day Care Supervisor sections to include entire fallopian tube and ovary, as: A serially section fimbriated end B serially section fallopian tube C-E entire ovary (5, ss, [id number], m8.1) Intraoperative Consultation -- 5. Left tube and ovary; left salpingo-oophorectomy (1 frozen section): Benign- mucinous cystadenoma. Embedded Images -- Cytology non-gynecologic [[id number]] Collected: 02/14/25 1142 Specimen: Fluid from Kidney, Left; Fluid from Kidney, Right; Fluid from Abdomen Updated: 02/26/25 3292 Case Report -- Medical Cytology Report Case: [id number] Authorizing Provider: Elenita Fowler MD Collected: 02/14/2025 1142 Ordering Location: [facility] Received: 02/14/2025 1248 - Surgery Pathologist: Keily Meyers MD Specimens: 1) - Kidney, Left, LEFT RENAL WASHING 2) - Kidney, Right, RIGHT RENAL WASHING 3) - Abdomen, ASCITES FOR CELLBLOCK AND CYTOLOGY Final Diagnosis -- 1. Kidney, Left, renal washings: Few atypical urothelial cells 2. Kidney, Right, renal washings: Few atypical urothelial cells 3. Abdomen, ascites fluid: Negative for malignant cells Gross Description -- 1. Received was 5ml of cloudy colorless fluid unfixed, labeled as Duggan, Left Kidney washing . CytoLyt added in lab. 2. Received was 10ml of cloudy colorless fluid unfixed, labeled as Duggan, Right Kidney washing . CytoLyt added in lab. 3. Received was 50ml of cloudy yellow fluid unfixed, labeled as Duggan, Abdomen fluid . CytoLyt added in lab. Specimen placed in formalin at 15:00 and had a total fixation time of 10 hours. Embedded Images -- Assessment: Patient is diagnosed with Patient Active Problem List Diagnosis Malignant neoplasm of overlapping sites of bladder (CMS-HCC) Urgency incontinence Encounter for follow-up surveillance of bladder cancer Adnexal mass Plan: Post op care - she is progressing well, but has complicating GI issues. We discussed the postop lifting and pelvic restrictions over the next several weeks. - Reviewed path and printed a report. Will forward to Dr. Grissom for management - Given benign WINDOWS SERVER ENGINEER path, patient may follow up with Dr. Escoto for routine benign WINDOWS SERVER ENGINEER exams as needed. No further WINDOWS SERVER ENGINEER ONC needs. 2. Abnormal electrophoresis - Part of XIANG workup included Immunoglobulin electrophoresis which was abnormal showing polyclonal hypergammaglobulinemia. Result forwarded to Dr. Robles. Pt advised of abnormality and will require hematology/oncology workup 3. Decompensated cirrhosis - Follow up with Dr. Caraballo 4. Bladder cancer - Management per Urology Please do not hesitate to return to clinic if wound concerns remain or if new issues arise. [facility] History of Present illness Narrative* Anayeli Grissom MD - 02/26/2025 2:00 PM EDT Images from the original note were not included. [address] [place] [address] [facility] [id number] Patient: Yaa Duggan Date of : 1950 Encounter Date: 02/26/2025 History of Present Illness: The patient is a 74 y.o. female, an established patient, and is here for She has a history of anal cancer treated with chemo and radiation in 2005 and 2006. She underwent colonoscopy and had a CT scan which incidentally noted a left lateral wall bladder mass. She underwent a TURBT March 06, 2021 was found have several tumors which were all resected. Final pathology low-grade TA noninvasive. Shehad a surveillance cystoscopy in December 2024 which was negative however her cytology was positive and fish. She underwent a exploratory laparotomy with bilateral oophorectomy with Dr. Fowler February 14, 2025. At that time I performed cysto with bladder biopsies and bilateral retrograde with washings. Pathology still pending. She is having a little more nocturia at night. Reports that her legs are swollen. Saw gynecology in follow-up this morning and had her rosanne removed. Summary of old records: Urinalysis today: No results for input(s): EXTPOCURCO , EXTPOCURCH , EXTPOCAPP , EXTPOCURBS , EXTPOCURBIL , EXTPOCUKET , EXTPOCUSPG , EXTPOCUHGB , EXTPOCUPRO , EXTPOCUURO , EXTPOCULEU , EXTPOCUNIT , EXTPOCUWBC , EXTPOCUBLD , EXTPOCURBC , EXTPOCUCRY , EXTPOCUBAC , EXTPOCUTREP , EXTPOCUPH in the last 72 hours. Last BUN and creatinine: Lab Results Component Value Date BUN 24 02/18/2025 Lab Results Component Value Date CREATININE 1.11 (H) 02/18/2025 Last PSA: No results found for: PSA No results found for: PROSTATICSP Additional Lab/Culture results: Imaging Reviewed during this Office Visit: (Results were independently reviewed by physician and radiology report verified) Past Medical, Family, and Social History Update: The following portions of the patient's history were reviewed and updated as appropriate: allergies, current medications, past family history, past medical history, past social history, past surgicalhistory and problem list. Past Medical History: Diagnosis Date Anemia Arthritis Ascites 2023 Bladder cancer ([facility]-HCC) 2020 surgery Cataract Chronic constipation Dental disease implants Diverticulitis of colon Dizziness Cody catheter in place Fractures ankle GERD (gastroesophageal reflux disease) Hypertension Hypothyroidism Liver disease cirrhosis Menorrhagia Ovarian mass 2024 bilateral Rectal cancer ([facility]-HCC) 2005 chemo, radiation Uterine fibroid Visual impairment Glasses Past Surgical History: Procedure Laterality Date BIOPSY BLADDER WITH CAUTERY Bilateral 02/14/2025 Performed by Anayeli Grissom MD at [facility] CATARACT EXTRACTION Bilateral CHOLECYSTECTOMY COLONOSCOPY 2024 egd CYSTOSCOPY N/A 12/25/2024 Performed by Anayeli Grissom MD at [facility] CYSTOSCOPY N/A 12/20/2023 Performed by Anayeli Grissom MD at [facility] CYSTOSCOPY N/A 12/21/2022 Performed by Anayeli Grissom MD at [facility] CYSTOSCOPY N/A 12/22/2021 Performed by Anayeli Grissom MD at [facility] CYSTOSCOPY N/A 06/16/2021 Performed by Anayeli Grissom MD at [facility] CYSTOSCOPY RETROGRADE PYELOGRAM/ WASHINGS BILATERAL Bilateral 02/14/2025 Performed by Anayeli Grissom MD at [facility] CYSTOSCOPY TRANSURETHRAL RESECTION BLADDER TUMOR N/A 03/06/2021 Performed by Anayeli Grissom MD at [facility] SURGERY EYE SURGERY 2019 Cataracts x 2, corneal scraping FOOT OSTEOTOMY W/ PLANTAR FASCIA RELEASE Bilateral HERNIA REPAIR umbilical HYSTERECTOMY IR BIOPSY LYMPH NODE Left 2005 Groin LAPAROTOMY EXPLORATORY N/A 02/14/2025 Performed by Elenita Fowler MD at [facility] SALPINGO-OOPHORECTOMY Bilateral 02/14/2025 Performed by Elenita Fowler MD at [facility] TUBAL LIGATION YAG CAPSULOTOMY Family History Problem Relation Age of Onset Lupus Mother Hypertension Father Anesthesia problems Neg Hx Current Outpatient Medications Medication Sig Dispense Refill acetaminophen (TYLENOL EXTRA STRENGTH) 500 mg tablet Take 1 tablet (500 mg total) by mouth every 6 (six) hours. 60 tablet 0 amLODIPine (NORVASC) 5 mg tablet Take 1 tablet (5 mg total) by mouth in the morning. Indications: high blood pressure. 30 tablet 0 atorvastatin (LIPITOR) 40 mg tablet Take 1 tablet (40 mg total) by mouth in the morning. Indications: high cholesterol and high triglycerides. folic acid (FOLVITE) 1 mg tablet Take 1 tablet (1 mg total) by mouth in the morning. lactulose (CHRONULAC) 10 gram/15 mL solution Take 15 mL (10 g total) by mouth 2 (two) times a day as needed (Titrate to have 2 bowel movements a day). 237 mL 1 levothyroxine (SYNTHROID, LEVOTHROID) 150 MCG tablet Take 1 tablet (150 mcg total) by mouth in the morning. metoclopramide (REGLAN) 5 mg tablet Take 1 tablet (5 mg total) by mouth 4 (four) times a day as needed (for nausea). 90 tablet 3 pantoprazole (PROTONIX) 40 mg EC tablet Take 1 tablet (40 mg total) by mouth every morning before breakfast. sennosides-docusate sodium (SENOKOT-S) 8.6-50 mg Take 2 tablets by mouth nightly. 60 tablet 0 No current facility-administered medications for this visit. (All medications reviewed and updated by provider since last office visit or hospitalization) Allergies: Codeine, Prednisolone, and Pyridium [phenazopyridine] Tobacco History: Social History Tobacco Use Smoking Status Former Current packs/day: 0.00 Average packs/day: 0.3 packs/day for 15.0 years (3.8 ttl pk-yrs) Types: Cigarettes Start date: 1983 Quit date: 1998 Years since quittin.8 Passive exposure: Never Smokeless Tobacco Never (If patient a smoker, smoking cessation counseling offered) Social History: Social History Substance and Sexual Activity Alcohol Use Not Currently Review of Systems: General: Positive for chills Cardiovascular: Negative for chest pain and shortness of breath. Gastrointestinal: Positive for diarrhea and constipation Physical Exam: BP 125/74 Pulse 84 Ht 165.1 cm (5' 5 ) Wt 93.9 kg (207 lb) BMI 34.45 kg/m Assessment and Plan: Yaa was seen today for follow-up. Diagnoses and all orders for this visit: Malignant neoplasm of overlapping sites of bladder (CMS-HCC) Problem List Genitourinary Malignant neoplasm of overlapping sites of bladder (CMS-HCC) - Primary Overview 02/20/21: Newly diagnosed left bladder wall mass [...] was for follow-up surveillance cystoscopy 3 months 12/28/24: urine cytology positive. FISH suspicious 4%. 02/14/2025: cysto with bilateral rpgs, washings and bladder biopsies Plan for cysto 3 months. We will let her know regarding path Follow-up: Anayeli Grissom MD This note was created with the assistance of a speech recognition program. While intending to generate a timely document that accurately reflects the content of the visit, no guarantee can be provided that every grammatical or spelling mistake has been or will be identified or corrected. Thank you for your understanding. documented in this encounterTr[facility] CenterZebra Mobile [id number] History of Present illness Narrative* NICOLASA Moultno - 02/26/2025 10:30 AM EDT Subjective: Yaa Duggan is a 74 y.o. female who is s/p a ex-lap on BSO in addition to biopsies/cystoscopy with urology on 02/14/25. Pathology: pending She is doing well post-operatively. She reports mild amounts of pain she is well relieved with [id number] medications. She is having some bowel urgency and loose stools. She states loose stoolsa somewhat normal for her. She reports feeling bloated and distended. No fevers, chills, N/V, N/T, SOB, vaginal bleeding. Patient was originally a consultation from Dr. Escoto for evaluation and management of pelvic mass. Oncology History Malignant neoplasm of overlapping sites of bladder (CMS-HCC) 02/20/2021 Initial Diagnosis Malignant neoplasm of overlapping sites of bladder (CMS-HCC) 03/17/2021 - Cancer Staged Staging form: Urinary Bladder, AJCC 8th Edition - Clinical stage from 03/17/2021: Stage 0a (cTa, cN0, cM0) - Signed by Anayeli Grissom MD on 03/17/2021 03/17/2021 - Cancer Staged Staging form: Urinary Bladder, AJCC 8th Edition - Pathologic stage from 03/17/2021: Stage 0a (chief talent officer, pN0, cM0) - Signed by Anayeli Grissom MD on 03/17/2021 Yaa Duggan Denies Early satiety Denies Abdominal distention Denies Leg swelling Denies Shortness of breath Denies Vaginal bleeding Denies Change in bowel habits Denies Change in bladder habits Denies Nausea and vomiting All other systems negative, unless specifically noted in HPI. Past Gynecologic History: OB History No obstetric history on file. No LMP recorded. Patient has had an implant. Hormonal Contraceptives No HRT use No History of abnormal pap No Past Surgical History: Procedure Laterality Date BIOPSY BLADDER WITH CAUTERY Bilateral 02/14/2025 Performed by Anayeli Grissom MD at [facility] CATARACT EXTRACTION Bilateral CHOLECYSTECTOMY COLONOSCOPY 2024 egd CYSTOSCOPY N/A 12/25/2024 Performed by Anayeli Grissom MD at [facility] CYSTOSCOPY N/A 12/20/2023 Performed by Anayeli Grissom MD at [facility] CYSTOSCOPY N/A 12/21/2022 Performed by Anayeli Grissom MD at [facility] CYSTOSCOPY N/A 12/22/2021 Performed by Anayeli Grissom MD at [facility] CYSTOSCOPY N/A 06/16/2021 Performed by Anayeli Grissom MD at [facility] CYSTOSCOPY RETROGRADE PYELOGRAM/ WASHINGS BILATERAL Bilateral 02/14/2025 Performed by Anayeli Grissom MD at [facility] CYSTOSCOPY TRANSURETHRAL RESECTION BLADDER TUMOR N/A 03/06/2021 Performed by Anayeli Grissom MD at [facility] SURGERY EYE SURGERY 2019 Cataracts x 2, corneal scraping FOOT OSTEOTOMY W/ PLANTAR FASCIA RELEASE Bilateral HERNIA REPAIR umbilical HYSTERECTOMY IR BIOPSY LYMPH NODE Left 2005 Groin LAPAROTOMY EXPLORATORY N/A 02/14/2025 Performed by Elenita Fowler MD at [facility] SALPINGO-OOPHORECTOMY Bilateral 02/14/2025 Performed by Elenita Fowler MD at [facility] TUBAL LIGATION YAG CAPSULOTOMY Past Medical History: Diagnosis Date Anemia Arthritis Ascites 2023 Bladder cancer (CMS-HCC) 2020 surgery Cataract Chronic constipation Dental disease implants Diverticulitis of colon Dizziness Cody catheter in place Fractures ankle GERD (gastroesophageal reflux disease) Hypertension Hypothyroidism Liver disease cirrhosis Menorrhagia Ovarian mass 2024 bilateral Rectal cancer ([facility]-HCC) 2005 chemo, radiation Uterine fibroid Visual impairment Glasses Family History Problem Relation Age of Onset Lupus Mother Hypertension Father Anesthesia problems Neg Hx Social History Socioeconomic History Marital status: Tobacco Use Smoking status: Former Current packs/day: 0.00 Average packs/day: 0.3 packs/day for 15.0 years (3.8 ttl pk-yrs) Types: Cigarettes Start date: 1983 Quit date: 1998 Years since quittin.8 Passive exposure: Never Smokeless tobacco: Never Vaping Use Vaping status: Never Used Substance and Sexual Activity Alcohol use: Not Currently Drug use: Never Sexual activity: Defer Social Drivers of Health Financial Resource Strain: Low Risk (02/26/2025) Overall Financial Resource Strain (CARDIA) Difficulty of Paying Living Expenses: Not hard at all Food Insecurity: No Food Insecurity (02/26/2025) Hunger Screening Food Insecurity - Worry: Never True Food Insecurity - Inability: Never True Transportation Needs: No Transportation Needs (02/26/2025) PRAPARE - Transportation Lack of Transportation (Medical): No Lack of Transportation (Non-Medical): No Interpersonal Safety: Not At Risk (02/14/2025) Humiliation, Afraid, Rape, and Kick questionnaire Fear of Current or Ex-Partner: No Emotionally Abused: No Physically Abused: No Sexually Abused: No Housing Instability: Low Risk (02/26/2025) Housing Instability Housing Instability: No Review of Symptoms: Pertinent items are noted in HPI. Objective: BP 129/69 Pulse 54 Temp 36.3 C (97.4 F) (Oral) Resp 18 Ht 165.1 cm (5' 5 ) Wt 94.1 kg (207 lb 6.4 oz) SpO2 97% BMI 34.51 kg/m ECO- Symptomatic; fully ambulatory General appearance: alert, appears stated age and cooperative Head: Normocephalic, without obvious abnormality, atraumatic Lungs: clear to auscultation bilaterally Heart: regular rate and rhythm, S1, S2 normal, no murmur, click, rub or gallop Abdomen: soft, nontender, vertical midline incision healing well without dehiscence or sign of infection. Rosanne removed today without complication. Extremities: extremities normal, atraumatic, no cyanosis or edema Pulses: 2+ and symmetric Skin: Skin color, texture, turgor normal. No rashes or lesions Lymph nodes: Cervical, supraclavicular, and axillary nodes normal. Neurologic: Grossly normal Labs: Lab Results Component Value Date WBC 5.2 02/18/2025 HGB 9.2 (L) 02/18/2025 HCT 28.2 (L) 02/18/2025 MCV 78 (L) 02/18/2025 PLT 183 02/18/2025 Lab Results Component Value Date GLU 148 (H) 02/18/2025 CALCIUM 8.2 (L) 02/18/2025 SODIUM 136 02/18/2025 K 3.7 02/18/2025 CO2 24 02/18/2025 BUN 24 02/18/2025 CREATININE 1.11 (H) 02/18/2025 Lab Results Component Value Date CA125 530 (H) 02/04/2025 Assessment: Patient is diagnosed with Patient Active Problem List Diagnosis Malignant neoplasm of overlapping sites of bladder (CMS-HCC) Urgency incontinence Encounter for follow-up surveillance of bladder cancer Adnexal mass Plan: Post op care - she is progressing well. We discussed the postop lifting and pelvic restrictions over the next several weeks. Rosanne removed today without complication. Follow up next week with Dr. Fowler. Pathology pending. Continue f/u with GI, urology, nephrology and oncology as previously scheduled. *The patient has a documented plan of care to address pain. All questions were answered to the patient's satisfaction. She is agreeable to this plan of care. *This note was completed using a voice director for beauty [employer] system. Every effort was made to ensure accuracy. However, inadvertent computerized director for beauty school errors may be present. 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 If you can send referral to them as well as a copy of her serum immunofixation. * Telephone Encounter - Maggy Mugruia LPN - 02/20/2025 3:41 PM EDT Referrals sent * Telephone Encounter - Maggy Murguia LPN - 02/20/2025 3:41 PM EDT Please let pt know of referral to Rheumatology * Telephone Encounter - Monica Valenzuela LPN - 02/20/2025 3:41 PM EDT Spoke with patient. Vocalized understanding need for hematology and to follow up with Dr. Robles. documented in this encounterUpper Valley Medical Center10-15-2025 Telephone encounter Note* Telephone Encounter - Maggy Murguia LPN - 02/20/2025 3:41 PM EDT ----- Message from Yovanny Gimenez MD sent at 02/20/2025 8:29 AM EDT ----- Please inform the patient that some of her labs that were still pending at the time of discharge are back and based on those we would recommend the following: Refer to Hematology for elevated free light chains and hypergammaglobulinemia Refer to rheumatology for positive MOHINI and hhte-[id number]-kcjvuppk DNA Check basic metabolic panel, urine dipstick and urine protein to creatinine ratio early next week Follow up with in 1 month with a CKD panel [facility]10-15-2025 Telephone encounter Note* Telephone Encounter - Maggy Murguia LPN - 02/20/2025 3:41 PM EDT It seems that her manager mall is Dr Robles. If you can send referral to them as well as a copy of her serum immunofixation. [facility]10-15-[facility] Telephone encounter Note* Telephone Encounter - Maggy Murguia LPN - 02/20/2025 3:41 PM EDT Referrals sent [facility]10-15-20[facility] Telephone encounter Note* Telephone Encounter - Maggy Murguia LPN - 02/20/2025 3:41 PM EDT Please let pt know of referral to Rheumatology [facility]10-15-[facility] Telephone encounter Note* Telephone Encounter - Monica Valenzuela LPN - 02/20/2025 3:41 PM EDT Spoke with patient. Vocalized understanding need for hematology and to follow up with Dr. Robles. [facility]10-14-2025 Miscellaneous Notes* Telephone Encounter - Shadia Goode RN - 02/19/2025 12:35 PM EDT Patient's contacted office stating patient was experiencing diarrhea. Crossbar Switch Adjuster advised patient's to have patient stop the senokot-s until diarrhea is resolved. Once diarrhea resolves and bowel movements return to baseline patient can start taking 1 senokot-s nightly to prevent strain with BMs. Patient's verbalized his understanding. documented in this encounterUpper Valley Medical Center10-14-2025 Telephone encounter Note* Telephone Encounter - Shadia Goode RN - 02/19/2025 12:35 PM EDT Patient's contacted office stating patient was experiencing diarrhea. Crossbar Switch Adjuster advised patient's to have patient stop the senokot-s until diarrhea is resolved. Once diarrhea resolves and bowel movements return to baseline patient can start taking 1 senokot-s nightly to prevent strain with BMs. Patient's verbalized his understanding. [facility]10-13-2025 Miscellaneous Notes* Telephone Encounter - Shadia Goode RN - 02/18/2025 11:51 AM EDT 02/14 operative note faxed to Dr. Robles's office. documented in this encounterUpper Valley Medical Center10-13-2025 Telephone encounter Note* Telephone Encounter - Shadia Goode RN - 02/18/2025 11:51 AM EDT 02/14 operative note faxed to Dr. Robles's office. [facility] [employer] [id number] History of Present illness Narrative* Elenita Fowler MD - 02/11/2025 10:30 AM EDT Subjective: Yaa is a 74 y.o. female here for consultation from Dr. Escoto for evaluation and management of pelvic mass. She reports worsening of symptoms over the last 1 year. She has been feeling fullness in her abdomen for the last one year, fatigue since May. She reports some occasional intermittent sharp painsthat started in her right upper quadrant and now have traveled to her left hemiabdomen. Appetite and early satiety are ongoing for last two years. She reports increase in abdominal girth but peripheral wasting. She reports nausea and poor oral intake but isn't taking anything for nausea. She has tried miralax for constipation but doesn't seem to help. She is drinking more water (about 48-64 oz) over the last two months than she ever had before.She denies any vaginal bleeding. She reports dyspnea on exertion and nausea. Last week she was having urinary retention and was told to go to the ER. At the time, bladder scan showed 1500 mL but patient reports that on cody insertion, there was very little urine coming out. She continues to have some concentrated urine through the cody catheter. She has a repeat cystoscopy next week with Dr. Grissom. CT scan at that time did show 17cm pelvic mass, and the patient saw Dr. Escoto last week and was referred here. The CT also shows left pleural effusion and ascites Prior to seeing Dr. Escoto, however, she had some imaging and workup done with Dr. Robles at [facility] and some with Dr. Caraballo through [facility]. This included CA19-9, CEA, AFP, significantliver workup, CBC, CMP. Findings included CA19-9 elevation to 96, AFP 3.3, CEA to 1.5. She also hadseveral imaging studies including MRI abdomen/pelvis to evaluate for pancreatic lesion in the setting of elevated CA19-9, TVUS, and PET/CT. Dr. Caraballo did an UGI and colonoscopy two weeks ago which showed portal hypertensive gastropathy with small varices. Regarding the patient's new diagnosis of cirrhosis, this has only been known for the last two months. She reports she used to drink 12 drinks in a week total for several years while working. Once sheretired in 2014, her lifestyle became more sedentary and she gained 15 lbs and started drinking less (4-5 drinks per week). Since finding out about cirrhosis, she doesn't consume any alcohol. Patientdoes report slightly more yellow hue and easier bruising/bleeding in last couple months. Cancer history: - Anal cancer in 2005, s/p chemoradiation. Initially had diarrhea but since then the diarrhea resolved. - Low grade urothelial cancer - resected by Dr. Grissom in 2020 via TURBT. Last cystoscopy was 12/2024 with suspcious Urovysion and she has repeat cystoscopy on 02/12/25 Surgical history: Patient had a hysterectomy done in 2012 for unclear reasons. Patient states she was bleeding, but then is unclear when she went through menopause. She reports it was done vaginally by a Dr. Ibrahim. In 2014, she then developed a ventral hernia and that was repaired with mesh via midline incision. Oncology History No overview note Yaa : Reports Early satiety Reports Abdominal distention Reports Leg swelling Reports Shortness of breath Denies Vaginal bleeding Reports Change in bowel habits Reports Change in bladder habits Reports Nausea and vomiting All other systems negative, unless specifically noted in HPI. Past Gynecologic History: - x 3 OB History No obstetric history on file. No LMP recorded. Patient has had a hysterectomy. Hormonal Contraceptives Yes HRT use Yes for short period - 9 months History of abnormal pap No PSH Past Surgical History: Procedure Laterality Date CATARACT EXTRACTION Bilateral CHOLECYSTECTOMY COLONOSCOPY 2024 egd CYSTOSCOPY N/A 12/25/2024 Performed by Anayeli Grissom MD at [facility] CYSTOSCOPY N/A 12/20/2023 Performed by Anayeli Grissom MD at [facility] CYSTOSCOPY N/A 12/21/2022 Performed by Anayeli Grissom MD at [facility] CYSTOSCOPY N/A 12/22/2021 Performed by Anayeli Grissom MD at [facility] CYSTOSCOPY N/A 06/16/2021 Performed by Anayeli Grissom MD at [facility] CYSTOSCOPY TRANSURETHRAL RESECTION BLADDER TUMOR N/A 03/06/2021 Performed by Anayeli Grissom MD at [facility] SURGERY EYE SURGERY 2019 Cataracts x 2, corneal scraping FOOT OSTEOTOMY W/ PLANTAR FASCIA RELEASE Bilateral HERNIA REPAIR umbilical HYSTERECTOMY IR BIOPSY LYMPH NODE Left 2005 Groin TUBAL LIGATION YAG CAPSULOTOMY PMH Past Medical History: Diagnosis Date Anemia Arthritis Ascites 2023 Bladder cancer (CMS-HCC) 2020 surgery Cataract Chronic constipation Dental disease implants Diverticulitis of colon Dizziness Cody catheter in place Fractures ankle GERD (gastroesophageal reflux disease) Hypertension Hypothyroidism Liver disease cirrhosis Menorrhagia Ovarian mass 2024 bilateral Rectal cancer (CMS-HCC) 2005 chemo, radiation Uterine fibroid Visual impairment Glasses Hypothyroidism since 8th grade No diabetes FHx Family History Problem Relation Age of Onset Lupus Mother Hypertension Father Anesthesia problems Neg Hx SOCHx Social History Tobacco Use Smoking status: Former Current packs/day: 0.00 Average packs/day: 0.3 packs/day for 15.0 years (3.8 ttl pk-yrs) Types: Cigarettes Start date: 1983 Quit date: 1998 Years since quittin.7 Passive exposure: Never Smokeless tobacco: Never Substance Use Topics Alcohol use: Not Currently Review of Symptoms: Pertinent items are noted in HPI. Objective: There were no vitals taken for this visit. ECO- Symptomatic; fully ambulatory General appearance: alert, appears stated age and cooperative Head: Normocephalic, without obvious abnormality, atraumatic Neck: no adenopathy, symmetrical, Lungs: clear to auscultation bilaterally,diminished in the left lung base Heart: regular rate and rhythm, S1, S2 normal, no murmur, click, rub or gallop Abdomen: abnormal findings: midline and Coco subcostal incision present. Abdomen protuberant, distended, tight but still soft. Bedside ultrasound confirms accessible fluid pockets in the right jimi-abdomen Pelvic: surgically absent cervix. Cody in place. Bladder still palpates as possibly being full. Obvious fullness above the cuff consistent with known pelvic mass. No RV nodularity. Exam chaperoned by: Suzie Loya MA Extremities: extremities with trace edema, slightly yellow hue Skin: Skin color, texture, turgor normal. No rashes or lesions Lymph nodes: Cervical, supraclavicular, and groin nodes normal. Neurologic: Grossly normal Labs: Lab Results Component Value Date WBC 6.0 02/08/2025 HGB 9.5 (L) 02/08/2025 HCT 28.9 (L) 02/08/2025 MCH 24.3 (L) 02/08/2025 MCHC 32.7 02/08/2025 PLT 223 02/08/2025 MPV 9.4 02/08/2025 RDW 19.0 (H) 02/08/2025 Lab Results Component Value Date BUN 17 01/29/2025 K 3.4 (L) 01/29/2025 CL 106 01/29/2025 CL 104 02/26/2021 ALBUMIN 2.7 (L) 01/29/2025 AST 103 (H) 01/29/2025 Imagin01/14/25 PET/CT Tom Procedure: PET skull to mid thigh PET/CT WITH FUSION COMPARISON: Colorectal cancer COMPARISON: CT chest 11/27/2024 and [facility] CT abdomen pelvis 12/11/2024 Following the intravenous administration of 12.18 mCi of FDG, SPECT imaging in 3 planes was performed from the level the orbits through the groin. Patient's blood glucose level at the time of injection was 117 mg/dL. Spiral unenhanced CT was also performed for anatomic localization. The PET and CT images were fused. This CT exam was performed using one or more following dose reduction techniques: Automated exposure control, adjustment of the mA and/or kV according to patient size, or use of iterative reconstruction technique. NECK: No enlarged or hypermetabolic cervical lymph nodes are visualized. There is physiologic activity at the vocal cords. CHEST: There are no enlarged or hypermetabolic mediastinal, hilar or axillary lymph nodes. There is an enlarging small to moderate size layering left pleural effusion. There is adjacent atelectasis. There is a stable subpleural right middle lobe nodule, without associated FDG uptake. No hypermetabolic pulmonary nodularity is seen. Granulomatous changes are present. ABDOMEN/PELVIS: There is no abnormal hypermetabolism associated with the liver or adrenal glands. The liver has a cirrhotic morphology. There are still prominent periportal lymph nodes with SUV up to 4.2. There is a 12 mm left periaortic lymph node with slight FDG uptake and SUV of 3.8. No additional hypermetabolic abdominal or pelvic lymph nodes are present. There is still a large anterior pelvic mass of fluid attenuation based on Hounsfield measurements. The mass is photopenic on the PET images. It still has a second lower attenuation nodular component within it posteriorly. There is prior hysterectomy. The mass was reported to be urinary bladder on the comparison CT, however there is a separate bladder which contains radioactive urine. The etiology of the mass is not entirely clear though it could be ovarian in origin. There is no obvious mass or hypermetabolism at the rectum. There is a small amount of ascites at the upper abdomen as well as the pelvis. There is left-sided diverticular disease. MR abdomen wo/w con 01/24/2025 Tom SIGNS AND SYMPTOMS: Malignant Neoplasm Of Bladder, Malignant Neoplasm Rectum TECHNIQUE: Multiplanar multisequence MR images of the abdomen were obtained with and without IV contrast. CONTRAST: 19 mL of intravenous Dotarem COMPARISON: 01/14/2025 FINDINGS: Lower Chest: There is a moderate left-sided pleural effusion. ABDOMEN: Liver: The liver has lobulated margins suggesting hepatic cirrhosis. No mass or abnormal post contrast-enhancement. Bile Ducts: Normal caliber. Gallbladder: Previously removed Pancreas: Within normal limits. Spleen: Within normal limits. Adrenals: Within normal limits. Kidneys: Within normal limits. Pelvis: There is partial visualization of a complex cystic structure within the upper pelvis containing T2 hyperintense areas of nodularity along the wall. The largest of these measures 2.4 cm. These areas are not included on the postcontrast images. This is concerning for a recurrent cystic and solid metastatic process. Bowel: Normal caliber. Mesenteric Lymph Nodes: No enlarged mesenteric lymph nodes. Peritoneum: There is intra-abdominal ascites. Vessels: Satisfactory flow voids are noted in the abdominal aorta and inferior vena cava, and portal veins. Retroperitoneum: Within normal limits. Abdominal Wall: Within normal limits. Bones: Within normal limits. IMPRESSION: There is partial visualization of a complex cystic structure within the upper pelvis containing T2 hyperintense areas of nodularity along the wall. The largest of these measures 2.4 cm. These areas are not included on the postcontrast images. This is concerning for a recurrent cystic and solid metastatic process. Findings suggest hepatic cirrhosis with intra-abdominal ascites. There is a moderate left-sided pleural effusion. Impression dictated by: Vasile Ragsdale M.D. 01/25/2025 5:22 PM 01/24/25 Tom TVUS with trandsabdominal TRANSABDOMINAL: The uterus is not identified, compatible with history. There is a large cystic appearing mass arising from the pelvis measuring at least 17.6 x 11.5 x 14.5 cm in size. This has a intraluminal, peripheral ringlike cystic areas within it measuring up to 3.2 cm in size. The appearance correlates with findings concerning on the CT study. There is no obvious surrounding ovarian tissue. No separate ovaries are identified on either side. TRANSVAGINAL: Transvaginal scans were performed to better evaluate the pelvis. The uterus is surgically absent. The cystic pelvic mass is only partially visualized due to overall size. By this approach, there are low level intraluminal echoes suggesting debris. There are also multiple peripheral ringlike cystic areas which appear to have more simple anechoic fluid. No obvious ovarian tissue is identified. There is a small amount of free pelvic fluid. IMPRESSION: PRIOR HYSTERECTOMY. LARGE, MILDLY COMPLEX CYSTIC PELVIC MASS, DESCRIBED. THIS IS PROBABLY OVARIAN IN ORIGIN. BENIGN ETIOLOGIES SUCH CYSTADENOMA ARE FAVORED HOWEVER GYNECOLOGIC FOLLOW-UP WILL BE NEEDED TO EXCLUDE ANY POSSIBILITY OF MALIGNANCY. SMALL AMOUNT OF FREE PELVIC FLUID. Echo complete W/ contrast Left Ventricle: Left ventricle appears normal in size. Wall thickness is normal. There is mid-cavity gradient noted. Resting gradient is 13 mmHg and increases to 22 mmHg with Valsalva. Systolic function is normal with an ejection fraction of 65-70%. No segmental wall motion abnormalities and see wall score diagram for wall motion abnormalities. Right Ventricle: Systolic function is normal. Assessment: Patient is diagnosed with Patient Active Problem List Diagnosis Malignant neoplasm of overlapping sites of bladder (CMS-HCC) Urgency incontinence Encounter for follow-up surveillance of bladder cancer Plan: 1. Complex adnexal mass - I reviewed numerous studies including a notes from Dr. Escoto, note from Dr. Robles, upper and lower endoscopy reports from Dr. Dimple Caraballo, CEA, CA 19 9, AFP, and liver function studies. I also called and discussed the patient's case with Dr. Caraballo and reached out to Dr. Hicks with radiology to review images from 2020. I have attempted to discuss with Dr. Robles and am waiting a call back - In summary, this patient has a complex pelvic mass that has actually been present since 2020. At that time in the longest diameter measured in the sagittal plane, it was 13 cm. Now in 2024, the longest diameter in the sagittal plane is 16.6 cm. This represents a minimal growth over time. Furthermore, pr PET-CT report this does not carry FDG avidity. While the MRI findings do suggest a solid component, in the absence of FDG avidity, the chronicity of the problem, and minimal growth over the last several years, I find it unlikely that this explains the patient's current symptomatology. However, the patient does have perhaps some urinary symptoms which may benefit from decompression versus surgical excision. The challenge in pursuing definitive surgical management is that the patient is a high-risk surgical candidate due to Child Burgess classification B from her decompensated liver cirrhosis, which carries an estimated 30% 90-day mortality from abdominal surgery. Furthermore, her abdomina l bloating, nausea, and constipation may very well be more related to her relative dehydration and portal hypertension instead of the mass. - Based on the above findings and explanation, I recommended to the patient that she under IR guided thoracentesis with cytology and cell count/diff, IR guided paracentesis with cytology and cell count/diff as well as fluid albumin (and serum albumin same day). This way, we can calculate SAAG. - Continue aggressive oral hydration. I did send Rx for reglan for nausea and lactulose for constipation - CA125 ordered - If surgery were to ever be done, discussed XL, BSO, frozen section with possible staging. We discussed the risks of surgery including risk of bleeding, possibly to anemia requiring blood transfusion, risk of infection, and risk of damage to surrounding structures including, but not limited to, bowel, bladder, ureters, nerves, arteries, and veins. 2. Decompensated cirrhosis - Extensive discussion with Dr. Carablalo today. Completion of workup today includes: INR, ammonia, LDH - Has known portal hypertensive gastropathy/varices 3. Elevated CA19-9 - Through UGI and MRI abdomen, pancreatic lesion has been reliably ruled out. May be secondary to cirrhosis plus ascites and/or pelvic mass. Likely nonspecific. 4. Urinary retention - More than anything, I suspect dehydration and low urine volumes as evidenced by her elevated creatinine and less so urinary retention - Continue cody catheter until urology procedure. May benefit from active bladder trial that day - If patient has ongoing urinary issues, remains a poor surgical candidate, and desires decompression of the cystic mass, IR guided drainage and biopsy of the ovarian mass can be considered. Patient understands this is not the SOC due to lack of desire to seed any cancer cells, but it may provide diagnostic and therapeutic benefit in a situation where surgery is not an option 5. Comorbidities - Anal cancer with hx of chemoRT - Prior alcohol use disorder - Hx of abdominal hernia repair with mesh - Anemia managed by Dr. Robles - obesity There is no height or weight on file to calculate BMI. - HTN - Hypothyroidism 6. Total time spent was 112 minutes: Preparing to see the patient (e.g., review of tests) Obtaining and/or reviewing separately obtained history Performing a medically appropriate examination and/or evaluation Counseling and educating the patient/family/caregiver Ordering medications, tests, or procedures Referring and communicating with other health acute care clinical nurse specialist (not separately reported) Documenting clinical information in the electronic or other health record Independently interpreting results (not separately reported) and communicating results to the patient/family/caregiver Care coordination (not separately reported) ELENITA FOWLER MD * Elenita Fowler MD - 02/11/2025 10:30 AM EDT Video Visit via Real-time Synchronous Audiovisual Provider Location: [facility], A DEPARTMENT OF [facility] [address] [facility] [id number] Patient Location: Patient's home Video Visit Consent Statement: I discussed risks, benefits, and alternatives of a real-time synchronous audiovisual consultation with the patient (and any accompanying persons) including the risks that the patient's personal health details and medical records will be discussed over real-time, synchronous, interactive video/audio/telecommunication technology, the visit will not be recorded withoutthe express consent of both the provider and the patient, and that there are some limitations compared to [id number] evaluations. The patient consented to the presence of additional virtual and/or in-person participants. We elected to proceed. Subjective: Yaa is a 74 y.o. female presents via video visit to review plan of care. At last visit, she was seen for adnexal mass in setting of portal hypertension. Workup to date has included tumor markers which was significant for a CA 125 elevated to greater than 500. She also had a thoracentesis which revealed 250 mL of pleural fluid, no evidence of malignant cells. Paracentesis could not be performed due to low volume of ascites. I also discussed the patient's case with Dr. Caraballo and with other hepatobiliary colleagues. We did discuss on the phone the findings and the patient was counseled that there was an option forhaving a surgical procedure although she does carry elevated surgical risk. Since being seen, she continues with Cody catheter but is having blood within the Cody catheter and possibly vaginally. She was diagnosed with a urinary tract infection and start the cephalosporin today.She notes that sheis starting to have problems taking pills and having problems eating. Cancer history: - Anal cancer in 2005, s/p chemoradiation. Initially had diarrhea but since then the diarrhea resolved. - Low grade urothelial cancer - resected by Dr. Grissom in 2020 via TURBT. Last cystoscopy was 12/2024 with suspcious Urovysion and she has repeat cystoscopy on 02/12/25 Surgical history: Patient had a hysterectomy done in 2012 for unclear reasons. Patient states she was bleeding, but then is unclear when she went through menopause. She reports it was done vaginally by a Dr. Ibrahim. In 2014, she then developed a ventral hernia and that was repaired with mesh via midline incision. Oncology History No overview note Yaa : Reports Early satiety Reports Abdominal distention Reports Leg swelling Reports Shortness of breath Denies Vaginal bleeding Reports Change in bowel habits Reports Change in bladder habits Reports Nausea and vomiting All other systems negative, unless specifically noted in HPI. Past Gynecologic History: - x 3 OB History No obstetric history on file. No LMP recorded. Patient has had a hysterectomy. Hormonal Contraceptives Yes HRT use Yes for short period - 9 months History of abnormal pap No PSH Past Surgical History: Procedure Laterality Date CATARACT EXTRACTION Bilateral CHOLECYSTECTOMY COLONOSCOPY 2024 egd CYSTOSCOPY N/A 12/25/2024 Performed by Anayeli Grissom MD at [facility] CYSTOSCOPY N/A 12/20/2023 Performed by Anayeli Grissom MD at [facility] CYSTOSCOPY N/A 12/21/2022 Performed by Anayeli Grissom MD at [facility] CYSTOSCOPY N/A 12/22/2021 Performed by Anayeli Grissom MD at [facility] CYSTOSCOPY N/A 06/16/2021 Performed by Anayeli Grissom MD at [facility] CYSTOSCOPY TRANSURETHRAL RESECTION BLADDER TUMOR N/A 03/06/2021 Performed by Anayeli Grissom MD at [facility] SURGERY EYE SURGERY 2019 Cataracts x 2, corneal scraping FOOT OSTEOTOMY W/ PLANTAR FASCIA RELEASE Bilateral HERNIA REPAIR umbilical HYSTERECTOMY IR BIOPSY LYMPH NODE Left 2005 Groin TUBAL LIGATION YAG CAPSULOTOMY PMH Past Medical History: Diagnosis Date Anemia Arthritis Ascites 2023 Bladder cancer (CMS-HCC) 2020 surgery Cataract Chronic constipation Dental disease implants Diverticulitis of colon Dizziness Cody catheter in place Fractures ankle GERD (gastroesophageal reflux disease) Hypertension Hypothyroidism Liver disease cirrhosis Menorrhagia Ovarian mass 2024 bilateral Rectal cancer (CMS-HCC) 2005 chemo, radiation Uterine fibroid Visual impairment Glasses Hypothyroidism since 8th grade No diabetes FHx Family History Problem Relation Age of Onset Lupus Mother Hypertension Father Anesthesia problems Neg Hx SOCHx Social History Tobacco Use Smoking status: Former Current packs/day: 0.00 Average packs/day: 0.3 packs/day for 15.0 years (3.8 ttl pk-yrs) Types: Cigarettes Start date: 1983 Quit date: 1998 Years since quittin. Passive exposure: Never Smokeless tobacco: Never Substance Use Topics Alcohol use: Not Currently Review of Symptoms: Pertinent items are noted in HPI. Objective: There were no vitals taken for this visit. ECO- Symptomatic; fully ambulatory General appearance: alert, appears stated age and cooperative Head: Normocephalic, without obvious abnormality, atraumatic Abdomen: abnormal findings: deferred today Extremities: extremities with trace edema, slightly yellow hue Labs: Lab Results Component Value Date WBC 6.0 02/08/2025 HGB 9.5 (L) 02/08/2025 HCT 28.9 (L) 02/08/2025 MCH 24.3 (L) 02/08/2025 MCHC 32.7 02/08/2025 PLT 223 02/08/2025 MPV 9.4 02/08/2025 RDW 19.0 (H) 02/08/2025 Lab Results Component Value Date BUN 17 01/29/2025 K 3.4 (L) 01/29/2025 CL 106 01/29/2025 CL 104 02/26/2021 ALBUMIN 2.7 (L) 01/29/2025 AST 103 (H) 01/29/2025 Imagin01/14/25 PET/CT [facility] Procedure: PET skull to mid thigh PET/CT WITH FUSION COMPARISON: Colorectal cancer COMPARISON: CT chest 11/27/2024 and [facility] CT abdomen pelvis 12/11/2024 Following the intravenous administration of 12.18 mCi of FDG, SPECT imaging in 3 planes was performed from the level the orbits through the groin. Patient's blood glucose level at the time of injection was 117 mg/dL. Spiral unenhanced CT was also performed for anatomic localization. The PET and CT images were fused. This CT exam was performed using one or more following dose reduction techniques: Automated exposure control, adjustment of the mA and/or kV according to patient size, or use of iterative reconstruction technique. NECK: No enlarged or hypermetabolic cervical lymph nodes are visualized. There is physiologic activity at the vocal cords. CHEST: There are no enlarged or hypermetabolic mediastinal, hilar or axillary lymph nodes. There is an enlarging small to moderate size layering left pleural effusion. There is adjacent atelectasis. There is a stable subpleural right middle lobe nodule, without associated FDG uptake. No hypermetabolic pulmonary nodularity is seen. Granulomatous changes are present. ABDOMEN/PELVIS: There is no abnormal hypermetabolism associated with the liver or adrenal glands. The liver has a cirrhotic morphology. There are still prominent periportal lymph nodes with SUV up to 4.2. There is a 12 mm left periaortic lymph node with slight FDG uptake and SUV of 3.8. No additional hypermetabolic abdominal or pelvic lymph nodes are present. There is still a large anterior pelvic mass of fluid attenuation based on Hounsfield measurements. The mass is photopenic on the PET images. It still has a second lower attenuation nodular component within it posteriorly. There is prior hysterectomy. The mass was reported to be urinary bladder on the comparison CT, however there is a separate bladder which contains radioactive urine. The etiology of the mass is not entirely clear though it could be ovarian in origin. There is no obvious mass or hypermetabolism at the rectum. There is a small amount of ascites at the upper abdomen as well as the pelvis. There is left-sided diverticular disease. MR abdomen wo/w con 01/24/2025 Tom SIGNS AND SYMPTOMS: Malignant Neoplasm Of Bladder, Malignant Neoplasm Rectum TECHNIQUE: Multiplanar multisequence MR images of the abdomen were obtained with and without IV contrast. CONTRAST: 19 mL of intravenous Dotarem COMPARISON: 01/14/2025 FINDINGS: Lower Chest: There is a moderate left-sided pleural effusion. ABDOMEN: Liver: The liver has lobulated margins suggesting hepatic cirrhosis. No mass or abnormal post contrast-enhancement. Bile Ducts: Normal caliber. Gallbladder: Previously removed Pancreas: Within normal limits. Spleen: Within normal limits. Adrenals: Within normal limits. Kidneys: Within normal limits. Pelvis: There is partial visualization of a complex cystic structure within the upper pelvis containing T2 hyperintense areas of nodularity along the wall. The largest of these measures 2.4 cm. These areas are not included on the postcontrast images. This is concerning for a recurrent cystic and solid metastatic process. Bowel: Normal caliber. Mesenteric Lymph Nodes: No enlarged mesenteric lymph nodes. Peritoneum: There is intra-abdominal ascites. Vessels: Satisfactory flow voids are noted in the abdominal aorta and inferior vena cava, and portal veins. Retroperitoneum: Within normal limits. Abdominal Wall: Within normal limits. Bones: Within normal limits. IMPRESSION: There is partial visualization of a complex cystic structure within the upper pelvis containing T2 hyperintense areas of nodularity along the wall. The largest of these measures 2.4 cm. These areas are not included on the postcontrast images. This is concerning for a recurrent cystic and solid metastatic process. Findings suggest hepatic cirrhosis with intra-abdominal ascites. There is a moderate left-sided pleural effusion. Impression dictated by: Vasile Ragsdale M.D. 01/25/2025 5:22 PM 01/24/25 [place]ley TVUS with trandsabdominal TRANSABDOMINAL: The uterus is not identified, compatible with history. There is a large cystic appearing mass arising from the pelvis measuring at least 17.6 x 11.5 x 14.5 cm in size. This has a intraluminal, peripheral ringlike cystic areas within it measuring up to 3.2 cm in size. The appearance correlates with findings concerning on the CT study. There is no obvious surrounding ovarian tissue. No separate ovaries are identified on either side. TRANSVAGINAL: Transvaginal scans were performed to better evaluate the pelvis. The uterus is surgically absent. The cystic pelvic mass is only partially visualized due to overall size. By this approach, there are low level intraluminal echoes suggesting debris. There are also multiple peripheral ringlike cystic areas which appear to have more simple anechoic fluid. No obvious ovarian tissue is identified. There is a small amount of free pelvic fluid. IMPRESSION: PRIOR HYSTERECTOMY. LARGE, MILDLY COMPLEX CYSTIC PELVIC MASS, DESCRIBED. THIS IS PROBABLY OVARIAN IN ORIGIN. BENIGN ETIOLOGIES SUCH CYSTADENOMA ARE FAVORED HOWEVER GYNECOLOGIC FOLLOW-UP WILL BE NEEDED TO EXCLUDE ANY POSSIBILITY OF MALIGNANCY. SMALL AMOUNT OF FREE PELVIC FLUID. Echo complete W/ contrast Left Ventricle: Left ventricle appears normal in size. Wall thickness is normal. There is mid-cavity gradient noted. Resting gradient is 13 mmHg and increases to 22 mmHg with Valsalva. Systolic function is normal with an ejection fraction of 65-70%. No segmental wall motion abnormalities and see wall score diagram for wall motion abnormalities. Right Ventricle: Systolic function is normal. Assessment: Patient is diagnosed with Patient Active Problem List Diagnosis Malignant neoplasm of overlapping sites of bladder (CMS-HCC) Urgency incontinence Encounter for follow-up surveillance of bladder cancer Plan: 1. Complex adnexal mass - Reviewed all of the patient's findings including INR (1.4), ammonia (51), CA125 (530), normal CEA - Given the negative thoracentesis and ascites that is too low volume, it is certainly reasonable to discuss open surgical procedure for palliation of symptoms. Regardless, she still has Child Burgess Bclassification and this carries an estimated 30% mortality from abdominal surgery. Alternatives forthe surgery include IR aspiration and biopsy which do carry the risk of seeding. - Patient is miserable. She understands all the risks of the surgical procedure and increased mortality due to her cirrhosis. As a result, she does not want possible staging. She would like to have surgery for palliation of symptoms. - Consented for XL, BSO, with frozen section, liver biopsy. Frozen section only for purposes of determining if there is cancer and therefore possible elevated risk of blood clot. We discussed the risks of surgery including risk of bleeding, possibly to anemia requiring blood transfusion, risk of infection, and risk of damage to surrounding structures including, but not limited to, bowel, bladder,ureters, nerves, arteries, and veins. Patient expressed understanding and desires to proceed. - Discussed risks of SBP, spontaneous hemorrhage with patient. Reviewed elevated risk of bleeding. Will have blood on hold. Will have GI team follow the patient inpatient. Will repeat CMP and INR morning of surgery. - Concomitant urology procedure with Dr. Grissom - Unsure if we will anticoagulate patient for DVT ppx - will discuss with GI team. Will avoid NSAIDs given her esophageal varices - Dr. Caraballo contacted for jamie-operative recommendations 2. Decompensated cirrhosis - Has known portal hypertensive gastropathy/varices - Avoid NGT 3. Elevated CA19-9 - Through UGI and MRI abdomen, pancreatic lesion has been reliably ruled out. May be secondary to cirrhosis plus ascites and/or pelvic mass. Likely nonspecific. 4. UTI - Continue abx - Will give jamie-op IV abx - Will plan for post-op ABT 5. Comorbidities - Anal cancer with hx of chemoRT - Prior alcohol use disorder - Hx of abdominal hernia repair with mesh - Anemia managed by Dr. Robles - obesity There is no height or weight on file to calculate BMI. - HTN - Hypothyroidism 6. Total time spent was 30 minutes: Preparing to see the patient (e.g., review of tests) Obtaining and/or reviewing separately obtained history Performing a medically appropriate examination and/or evaluation Counseling and educating the patient/family/caregiver Ordering medications, tests, or procedures Referring and communicating with other health acute care clinical nurse specialist (not separately reported) Documenting clinical information in the electronic or other health record Independently interpreting results (not separately reported) and communicating results to the patient/family/caregiver Care coordination (not separately reported) ELENITA FOWLER MD documented in [facility]Tr[facility] [id number] Instructions* Patient Instructions* Madai Salcido RN - 02/08/2025 2:15 PM EDT Your surgery/procedure is scheduled at [facility] on 02/14/25 10:30 Arrival Time 8:30 [facility] Address: [address] [place] [address] in [address] located on [facility]. Report to the Entrance B. Check in at the information desk. The waiting room is located on the second floor. If you have any questions prior to surgery, please call Pre-Admission Clinic at [phone] between 7:30 am and 4:30 pm Tuesday through Tuesday. If you have questions the morning of surgery, please call the Pre-op Department at [phone]. Notify your SURGEON if you develop any illness such as a cold, cough, fever, sore throat, vomiting or are hospitalized between now and your surgery. Medication Instructions (Do not stop your medications without consulting the prescribing physician). Take the following medications the morning of surgery with a sip of water: Levothyroxine, Pantoprazole, Amlodipine Diabetic or Weight loss medications: HOLD/NONE Take inhalers as prescribed the morning of surgery. Due to the risk associated with these medications. If these medications are not held per instruction below, your surgery is at an increased risk for cancellation. SGLT2 Medications- Hold 3 days prior to surgery: Jardiance, Empagliflozin, Farxiga, Dapagliflozin, Invokana, Canagliflozin, Trijardy, Synjardy GLP-1 Medications (Injection or Pill)- If taken daily hold day of surgery. If taken weekly, hold 1 week prior to surgery: Adlyxin, Byetta, Bydureon, Ozempic, Rybelsus,Trulicity, Victoza, Wegovy, Lixisenatide, Exenatide, Semaglutide, Dulaglutide, Liraglutide GIP/GLP-1(Injection or Pill)- If taken daily hold day of surgery. If taken weekly, hold 1 week prior to surgery: Mounjaro . Blood thinners: Please contact your prescribing physician regarding a stop/hold date for these medications. Medications such as Coumadin, Heparin, Aspirin, Plavix, Eliquis, Pradaxa Diabetics: If you take insulin, contact your prescribing doctor for instructions on how to manage this the night before and the morning of surgery. Non-steriodal Anti-Inflammatory Drugs (NSAIDS)- Hold 3 days prior to surgery unless otherwise directed by your surgeon. Tylenol ok. Vitamins/Herbal Products: You may continue to take your prescribed vitamins such as potassium, iron, vitamin B, vitamin C, or multivitamin unless specifically instructed by your surgeon to hold. STOPtaking all herbal products/teas one week prior to your surgery. Marijuana: Stop marijuana 72 hours prior to surgery, stop CBD oil 48 hours prior to surgery. If you have been given bowel prep instructions by your surgeon, please call the surgeon's office with any questions about these instructions. What do I do the day of Surgery? Age 2 through adult - Stop all solids by midnight, You may have a small amount of clear liquids up to 2 hours before surgery, unless otherwise instructed by your surgeon. Clear liquids are: water, sports drinks such as Gatorade or G2, or apple juice. You may NOT have: tube feedings, dairy products, alcoholic beverages, orange juice, or any liquids with solids or pulp in it. If applicable, shower again with CHG soap the morning of your surgery. In order to help prevent infection post-operatively, you may be asked to use a CHG mouthwash when you arrive to the Pre-op area. Your nurse will provide instruction the morning of. What do I need to do to prepare for surgery? If you will be going home the same day as your surgery, arrange for an adult over [address] Riding in a bus or taxi by yourself is not permitted. You should not smoke or drink alcohol 24 hours before your surgery. Alcohol thins the blood and may cause bleeding problems during surgery. Smoking increases the risk of breathing problems after surgery. Do not use lotions, creams, powders, perfume, make up, cologne or after-shaves day of surgery. Remove ALL jewelry including wedding rings, body piercings (including dermal piercing's, hair extensions that contain metal, nail moroccan, make-up, and contact lens. You may brush your teeth the morning of surgery, but do not swallow the water. Wear your dentures and partial plates to the hospital (no adhesive). Shower the night before your procedure. If applicable, use the CHG (chlorhexidine gluconate) soap or wipes. Place clean linens on your bed after showering and put on freshly laundered nightclothes. Do not allow pets to sleep in your bed What should I bring to the hospital? Eyeglass or contact lens case If you will be spending the night, please bring personal care items and leave them in the car untilyou are taken to your room after surgery. Leave ALL valuables at home. If any of these instructions conflict with those you received from the surgeon, please seek clarification from your surgeon's office. DEEP BREATHING EXERCISES This exercise helps promote good air exchange and helps to prevent pneumonia after surgery. Breathe in slowly and deeply through the nose. Hold your breath for a few seconds and then exhale slowly through the mouth. Repeat this three times and then cough.Coughing helps to clear your lungs. If you have had a surgery with an incision into your abdomen or chest, press gently against your incision with a pillow or a folded blanket when you cough. Please be aware - it may not be warren to cough following some types of surgeries involving the eyes,ears, sinuses and throat. Always follow your doctor's instructions. LEG EXERCISE These exercises help promote good circulation and help to prevent blood clots after surgery. Point your toes to the ceiling and then point them to the wall. Do this slowly about 15-20 times. You may also move your feet in circles. Do the exercise that is most comfortable for you. If you have had surgery involving your shoulder or arm, we recommend you move your fingers. PRACTICING We ask that you begin practicing these exercises before your surgery. After surgery try to do both exercises at least every 2 hours during the day and early evening. Surgical Site Infection Prevention What is a Surgical Site Infection (SSI)? Infection can happen to the area of the body where surgery is done. This is called a surgical site infection (SSI). A SSI does not happen very often. What are some of the things that hospitals are doing to prevent SSIs? Soap and water or alcohol hand rub are used before and after caring for each patient. Special soap is used to clean surgery workers hands and arms just before the surgery. Masks, gowns, gloves and hair covers are worn during the surgery to keep the area clean. Hair in the surgery area may be removed with clippers (not razors). A special soap that kills germs is used to clean the skin at the surgery site. Antibiotics may be given before the surgery starts. What can you do to prevent SSIs? Before surgery: You may be asked to shower or bathe with a special soap that kills germs the night before and the day of surgery. Use the soap as you were told. Place clean sheets on your bed the night before surgery and do not allow your pets in your bed. If you smoke or vape, stop or cut down. This creates a stress response in your body that increases inflammation, constricts blood vessels and deprives your tissues of oxygen. After surgery, this stress response disrupts the travel of oxygen, nutrients, and blood to your surgical site, interfering with the wound healing process. It also decreases the ability of your cells to fight infection. Ask your doctor about ways to quit. If you have high blood sugars or diabetes please talk with your doctor about having healthy blood sugar levels to promote healing. Do not shave near where you will have surgery. Shaving can irritate the skin and make it easier to get and infection. After surgery: Be sure that the doctors and nurses clean their hands before and after touching you. Be sure your family and friends clean their hands before and after visiting you. Do not be afraid to remind them. Always wash your hands before touching your incisional area. * Care for your wound at home as told by your doctor or nurse * Call your doctor right away if you have fever, redness, increased pain, or drainage at the surgery site. Can SSIs be treated? Antibiotics are used to treat SSI. Some patients may need another surgery to treat the infection. The doctor will discuss treatment options with you. Further questions? Contact the doctor, nurse or the Infection Prevention and Control department if you have any questions. PATIENT RIGHTS AND RESPONSIBILITIES As a patient at [facility], you have the right to: Receive medical care and be informed of who is taking care of you Be treated with dignity and respect Have a family member/residential sales representative of choice and your physician notified of your admission Receive information and actively participate in decisions about your care and treatment Refuse care, treatment and services Decide who may provide your support and speak for you Access caodaism and spiritual services Participate in ethical issues and questions about your care Receive private and confidential care Have appropriate assessment and management of your pain Know guest visitation restrictions or limitations Have an advance directive Access protective services Consent or refuse to participate in research studies or production or recordings, films or other images Have resolution of your complaints Receive information of hospital charges and payment methods Patient/patient residential sales representative responsibilities are to: Provide information about health status to facilitate care, treatment and services Follow the treatment, plan, keep appointments and speak up when you do not understand the plan Respect the rights of other patients and healthcare personnel Follow organizational rules and regulations that support quality care and a safe environment Fulfill financial obligations as promptly as possible [facility] of Present illness Narrative* Elenita Fowler MD - 02/04/2025 9:00 AM EDT Subjective: Yaa is a 74 y.o. female here for consultation from Dr. Escoto for evaluation and management of pelvic mass. She reports worsening of symptoms over the last 1 year. She has been feeling fullness in her abdomen for the last one year, fatigue since May. She reports some occasional intermittent sharp painsthat started in her right upper quadrant and now have traveled to her left hemiabdomen. Appetite and early satiety are ongoing for last two years. She reports increase in abdominal girth but peripheral wasting. She reports nausea and poor oral intake but isn't taking anything for nausea. She has tried miralax for constipation but doesn't seem to help. She is drinking more water (about 48-64 oz) over the last two months than she ever had before.She denies any vaginal bleeding. She reports dyspnea on exertion and nausea. Last week she was having urinary retention and was told to go to the ER. At the time, bladder scan showed 1500 mL but patient reports that on cody insertion, there was very little urine coming out. She continues to have some concentrated urine through the cody catheter. She has a repeat cystoscopy next week with Dr. Grissom. CT scan at that time did show 17cm pelvic mass, and the patient saw Dr. Escoto last week and was referred here. The CT also shows left pleural effusion and ascites Prior to seeing Dr. Escoto, however, she had some imaging and workup done with Dr. Robles at [facility] and some with Dr. Caraballo through [facility]. This included CA19-9, CEA, AFP, significantliver workup, CBC, CMP. Findings included CA19-9 elevation to 96, AFP 3.3, CEA to 1.5. She also hadseveral imaging studies including MRI abdomen/pelvis to evaluate for pancreatic lesion in the setting of elevated CA19-9, TVUS, and PET/CT. Dr. Caraballo did an UGI and colonoscopy two weeks ago which showed portal hypertensive gastropathy with small varices. Regarding the patient's new diagnosis of cirrhosis, this has only been known for the last two months. She reports she used to drink 12 drinks in a week total for several years while working. Once sheretired in 2014, her lifestyle became more sedentary and she gained 15 lbs and started drinking less (4-5 drinks per week). Since finding out about cirrhosis, she doesn't consume any alcohol. Patientdoes report slightly more yellow hue and easier bruising/bleeding in last couple months. Cancer history: - Anal cancer in 2005, s/p chemoradiation. Initially had diarrhea but since then the diarrhea resolved. - Low grade urothelial cancer - resected by Dr. Grissom in 2020 via TURBT. Last cystoscopy was 12/2024 with suspcious Urovysion and she has repeat cystoscopy on 02/12/25 Surgical history: Patient had a hysterectomy done in 2012 for unclear reasons. Patient states she was bleeding, but then is unclear when she went through menopause. She reports it was done vaginally by a Dr. Ibrahim. In 2014, she then developed a ventral hernia and that was repaired with mesh via midline incision. Oncology History No overview note Yaa : Reports Early satiety Reports Abdominal distention Reports Leg swelling Reports Shortness of breath Denies Vaginal bleeding Reports Change in bowel habits Reports Change in bladder habits Reports Nausea and vomiting All other systems negative, unless specifically noted in HPI. Past Gynecologic History: - x 3 OB History No obstetric history on file. No LMP recorded. Patient has had a hysterectomy. Hormonal Contraceptives Yes HRT use Yes for short period - 9 months History of abnormal pap No PSH Past Surgical History: Procedure Laterality Date CHOLECYSTECTOMY COLONOSCOPY CYSTOSCOPY N/A 12/25/2024 Performed by Anayeli Grissom MD at [facility] CYSTOSCOPY N/A 12/20/2023 Performed by Anayeli Grissom MD at [facility] CYSTOSCOPY N/A 12/21/2022 Performed by Anayeli Grissom MD at [facility] CYSTOSCOPY N/A 12/22/2021 Performed by Anayeli Grissom MD at [facility] CYSTOSCOPY N/A 06/16/2021 Performed by Anayeli Grissom MD at [facility] CYSTOSCOPY TRANSURETHRAL RESECTION BLADDER TUMOR N/A 03/06/2021 Performed by Anayeli Grissom MD at [facility] SURGERY EYE SURGERY 2019 Cataracts x 2, corneal scraping FOOT OSTEOTOMY W/ PLANTAR FASCIA RELEASE Bilateral HERNIA REPAIR umbilical HYSTERECTOMY IR BIOPSY LYMPH NODE Left 2006 Groin TUBAL LIGATION PMH Past Medical History: Diagnosis Date Bladder cancer (CMS-HCC) Bladder mass Cancer (CMS-HCC) rectal Dizziness Hypertension Hypothyroidism Visual impairment Glasses Hypothyroidism since 8th grade No diabetes FHx Family History Problem Relation Age of Onset Lupus Mother Hypertension Father Anesthesia problems Neg Hx SOCHx Social History Tobacco Use Smoking status: Former Current packs/day: 0.00 Average packs/day: 0.3 packs/day for 15.0 years (3.8 ttl pk-yrs) Types: Cigarettes Start date: 1983 Quit date: 1998 Years since quittin.7 Smokeless tobacco: Never Substance Use Topics Alcohol use: Yes Comment: wine/beer & liquor daily, 2 per day Review of Symptoms: Pertinent items are noted in HPI. Objective: BP 112/64 Pulse 68 Resp 18 Ht 165.1 cm (5' 5 ) Wt 95 kg (209 lb 6.4 oz) SpO2 98% BMI 34.85 kg/m ECO- Symptomatic; fully ambulatory General appearance: alert, appears stated age and cooperative Head: Normocephalic, without obvious abnormality, atraumatic Neck: no adenopathy, symmetrical, Lungs: clear to auscultation bilaterally,diminished in the left lung base Heart: regular rate and rhythm, S1, S2 normal, no murmur, click, rub or gallop Abdomen: abnormal findings: midline and Coco subcostal incision present. Abdomen protuberant, distended, tight but still soft. Bedside ultrasound confirms accessible fluid pockets in the right jimi-abdomen Pelvic: surgically absent cervix. Cody in place. Bladder still palpates as possibly being full. Obvious fullness above the cuff consistent with known pelvic mass. No RV nodularity. Exam chaperoned by: Suzie Loya MA Extremities: extremities with trace edema, slightly yellow hue Skin: Skin color, texture, turgor normal. No rashes or lesions Lymph nodes: Cervical, supraclavicular, and groin nodes normal. Neurologic: Grossly normal Labs: Lab Results Component Value Date WBC 5.6 01/29/2025 HGB 8.9 (L) 01/29/2025 HCT 28.0 (L) 01/29/2025 MCH 23.8 (L) 01/29/2025 MCHC 31.8 (L) 01/29/2025 PLT 212 01/29/2025 MPV 8.4 01/29/2025 RDW 18.1 (H) 01/29/2025 Lab Results Component Value Date BUN 17 01/29/2025 K 3.4 (L) 01/29/2025 CL 106 01/29/2025 CL 104 02/26/2021 ALBUMIN 2.7 (L) 01/29/2025 AST 103 (H) 01/29/2025 Imagin01/14/25 PET/CT [facility] Procedure: PET skull to mid thigh PET/CT WITH FUSION COMPARISON: Colorectal cancer COMPARISON: CT chest 11/27/2024 and [facility] CT abdomen pelvis 12/11/2024 Following the intravenous administration of 12.18 mCi of FDG, SPECT imaging in 3 planes was performed from the level the orbits through the groin. Patient's blood glucose level at the time of injection was 117 mg/dL. Spiral unenhanced CT was also performed for anatomic localization. The PET and CT images were fused. This CT exam was performed using one or more following dose reduction techniques: Automated exposure control, adjustment of the mA and/or kV according to patient size, or use of iterative reconstruction technique. NECK: No enlarged or hypermetabolic cervical lymph nodes are visualized. There is physiologic activity at the vocal cords. CHEST: There are no enlarged or hypermetabolic mediastinal, hilar or axillary lymph nodes. There is an enlarging small to moderate size layering left pleural effusion. There is adjacent atelectasis. There is a stable subpleural right middle lobe nodule, without associated FDG uptake. No hypermetabolic pulmonary nodularity is seen. Granulomatous changes are present. ABDOMEN/PELVIS: There is no abnormal hypermetabolism associated with the liver or adrenal glands. The liver has a cirrhotic morphology. There are still prominent periportal lymph nodes with SUV up to 4.2. There is a 12 mm left periaortic lymph node with slight FDG uptake and SUV of 3.8. No additional hypermetabolic abdominal or pelvic lymph nodes are present. There is still a large anterior pelvic mass of fluid attenuation based on Hounsfield measurements. The mass is photopenic on the PET images. It still has a second lower attenuation nodular component within it posteriorly. There is prior hysterectomy. The mass was reported to be urinary bladder on the comparison CT, however there is a separate bladder which contains radioactive urine. The etiology of the mass is not entirely clear though it could be ovarian in origin. There is no obvious mass or hypermetabolism at the rectum. There is a small amount of ascites at the upper abdomen as well as the pelvis. There is left-sided diverticular disease. MR abdomen wo/w con 01/24/2025 Tom SIGNS AND SYMPTOMS: Malignant Neoplasm Of Bladder, Malignant Neoplasm Rectum TECHNIQUE: Multiplanar multisequence MR images of the abdomen were obtained with and without IV contrast. CONTRAST: 19 mL of intravenous Dotarem COMPARISON: 01/14/2025 FINDINGS: Lower Chest: There is a moderate left-sided pleural effusion. ABDOMEN: Liver: The liver has lobulated margins suggesting hepatic cirrhosis. No mass or abnormal post contrast-enhancement. Bile Ducts: Normal caliber. Gallbladder: Previously removed Pancreas: Within normal limits. Spleen: Within normal limits. Adrenals: Within normal limits. Kidneys: Within normal limits. Pelvis: There is partial visualization of a complex cystic structure within the upper pelvis containing T2 hyperintense areas of nodularity along the wall. The largest of these measures 2.4 cm. These areas are not included on the postcontrast images. This is concerning for a recurrent cystic and solid metastatic process. Bowel: Normal caliber. Mesenteric Lymph Nodes: No enlarged mesenteric lymph nodes. Peritoneum: There is intra-abdominal ascites. Vessels: Satisfactory flow voids are noted in the abdominal aorta and inferior vena cava, and portal veins. Retroperitoneum: Within normal limits. Abdominal Wall: Within normal limits. Bones: Within normal limits. IMPRESSION: There is partial visualization of a complex cystic structure within the upper pelvis containing T2 hyperintense areas of nodularity along the wall. The largest of these measures 2.4 cm. These areas are not included on the postcontrast images. This is concerning for a recurrent cystic and solid metastatic process. Findings suggest hepatic cirrhosis with intra-abdominal ascites. There is a moderate left-sided pleural effusion. Impression dictated by: Vasile Ragsdale M.D. 01/25/2025 5:22 PM 01/24/25 Tom TVUS with trandsabdominal TRANSABDOMINAL: The uterus is not identified, compatible with history. There is a large cystic appearing mass arising from the pelvis measuring at least 17.6 x 11.5 x 14.5 cm in size. This has a intraluminal, peripheral ringlike cystic areas within it measuring up to 3.2 cm in size. The appearance correlates with findings concerning on the CT study. There is no obvious surrounding ovarian tissue. No separate ovaries are identified on either side. TRANSVAGINAL: Transvaginal scans were performed to better evaluate the pelvis. The uterus is surgically absent. The cystic pelvic mass is only partially visualized due to overall size. By this approach, there are low level intraluminal echoes suggesting debris. There are also multiple peripheral ringlike cystic areas which appear to have more simple anechoic fluid. No obvious ovarian tissue is identified. There is a small amount of free pelvic fluid. IMPRESSION: PRIOR HYSTERECTOMY. LARGE, MILDLY COMPLEX CYSTIC PELVIC MASS, DESCRIBED. THIS IS PROBABLY OVARIAN IN ORIGIN. BENIGN ETIOLOGIES SUCH CYSTADENOMA ARE FAVORED HOWEVER GYNECOLOGIC FOLLOW-UP WILL BE NEEDED TO EXCLUDE ANY POSSIBILITY OF MALIGNANCY. SMALL AMOUNT OF FREE PELVIC FLUID. CT abdomen and pelvis with contrast History: Urinary retention history of rectal cancer, pelvic mass. Exam: CT abdomen pelvis with contrast 100 ml [address] scans at this facility use dose modulation, iterative reconstruction, and/or weight based dosing when appropriate to reduce radiation dose to as low as reasonably achievable. Comparison: 02/18/2021. CT abdomen with contrast: Moderate layering left pleural effusion, left lower lobe atelectasis probably visualized. Moderate ascites. No enhancing lesions in liver, spleen, pancreas, adrenal glands or kidneys. Cholecystectomy. No enlarged abdominal lymph nodes. Prominent mesenteric lymph nodes, hazy mesentery can noted. Heavily calcified abdominal aorta. Circumaortic left renal vein. CT pelvis with contrast: Cody catheter decompresses urinary bladder. Moderate ascites extends into the low pelvis. Lobulated complex cystic pelvic mass, 16 cm anterior posterior, 15 cm transverse, 17 cm anterior posterior centered in the mid pelvis. Hysterectomy. No enlarged lymph nodes. No evidence for bowel obstruction. Mild colonic diverticulosis. IMPRESSION: Complex cystic 17 x 16 x 15 cm pelvic mass, favoring ovarian origin. Moderate ascites. Cody catheter decompresses the urinary bladder. Moderate left pleural effusion, partly visualized left lower lobe atelectasis. Finalized by Harsha Hicks MD on 01/29/2025 5:51 PM Assessment: Patient is diagnosed with Patient Active Problem List Diagnosis Malignant neoplasm of overlapping sites of bladder (CMS-HCC) Urgency incontinence Encounter for follow-up surveillance of bladder cancer Plan: 1. Complex adnexal mass - I reviewed numerous studies including a notes from Dr. Escoto, note from Dr. Robles, upper and lower endoscopy reports from Dr. Dimple Caraballo, CEA, CA 19 9, AFP, and liver function studies. I also called and discussed the patient's case with Dr. Caraballo and reached out to Dr. Hicks with radiology to review images from 2020. I have attempted to discuss with Dr. Robles and am waiting a call back - In summary, this patient has a complex pelvic mass that has actually been present since 2020. At that time in the longest diameter measured in the sagittal plane, it was 13 cm. Now in 2024, the longest diameter in the sagittal plane is 16.6 cm. This represents a minimal growth over time. Furthermore, pr PET-CT report this does not carry FDG avidity. While the MRI findings do suggest a solid component, in the absence of FDG avidity, the chronicity of the problem, and minimal growth over the last several years, I find it unlikely that this explains the patient's current symptomatology. However, the patient does have perhaps some urinary symptoms which may benefit from decompression versus surgical excision. The challenge in pursuing definitive surgical management is that the patient is a high-risk surgical candidate due to Child Burgess classification B from her decompensated liver cirrhosis, which carries an estimated 30% 90-day mortality from abdominal surgery. Furthermore, her abdomina l bloating, nausea, and constipation may very well be more related to her relative dehydration and portal hypertension instead of the mass. - Based on the above findings and explanation, I recommended to the patient that she under IR guided thoracentesis with cytology and cell count/diff, IR guided paracentesis with cytology and cell count/diff as well as fluid albumin (and serum albumin same day). This way, we can calculate SAAG. - Continue aggressive oral hydration. I did send Rx for reglan for nausea and lactulose for constipation - CA125 ordered - If surgery were to ever be done, discussed XL, BSO, frozen section with possible staging. We discussed the risks of surgery including risk of bleeding, possibly to anemia requiring blood transfusion, risk of infection, and risk of damage to surrounding structures including, but not limited to, bowel, bladder, ureters, nerves, arteries, and veins. 2. Decompensated cirrhosis - Extensive discussion with Dr. Caraballo today. Completion of workup today includes: INR, ammonia, LDH - Has known portal hypertensive gastropathy/varices 3. Elevated CA19-9 - Through UGI and MRI abdomen, pancreatic lesion has been reliably ruled out. May be secondary to cirrhosis plus ascites and/or pelvic mass. Likely nonspecific. 4. Urinary retention - More than anything, I suspect dehydration and low urine volumes as evidenced by her elevated creatinine and less so urinary retention - Continue cody catheter until urology procedure. May benefit from active bladder trial that day - If patient has ongoing urinary issues, remains a poor surgical candidate, and desires decompression of the cystic mass, IR guided drainage and biopsy of the ovarian mass can be considered. Patient understands this is not the SOC due to lack of desire to seed any cancer cells, but it may provide diagnostic and therapeutic benefit in a situation where surgery is not an option 5. Comorbidities - Anal cancer with hx of chemoRT - Prior alcohol use disorder - Hx of abdominal hernia repair with mesh - Anemia managed by Dr. Robles - obesity Body mass index is 34.85 kg/m . - HTN - Hypothyroidism 6. Total time spent was 112 minutes: Preparing to see the patient (e.g., review of tests) Obtaining and/or reviewing separately obtained history Performing a medically appropriate examination and/or evaluation Counseling and educating the patient/family/caregiver Ordering medications, tests, or procedures Referring and communicating with other health acute care clinical nurse specialist (not separately reported) Documenting clinical information in the electronic or other health record Independently interpreting results (not separately reported) and communicating results to the patient/family/caregiver Care coordination (not separately reported) ELENITA FOWLER MD documented in this encounterUpper [facility] Center09-24-2025 History of Present illness Narrative* Clarisa Ro LPN - 01/30/2025 2:10 PM EDT Reason for Appointment: Patient ID: Yaa Duggan is a 74 y.o. female who presents for Consult (Pt present today for a consult visit w/Dr. Escoto. Pt was referred by Dr. Robles for pelvic mass.) Patient presents today for Acute Visit. MEDICATIONS Current Outpatient Medications Medication Instructions amLODIPine (NORVASC) 10 mg, Oral, Daily atorvastatin (LIPITOR) 40 mg, Daily RT folic acid (FOLVITE) 1 mg, Oral, Daily RT hyoscyamine (Anaspaz,Levsin) 0.125 MG tablet Every 4 hours levothyroxine (SYNTHROID, LEVOXYL) 150 mcg, Daily RT losartan (COZAAR) 100 mg, Daily RT meclizine (Antivert) 25 MG tablet TAKE 1 TABLET BY MOUTH TWICE A DAY NEEDED FOR DIZZINESS pantoprazole (PROTONIX) 40 mg, Daily before breakfast Plenvu 140 g reconstituted solution TAKE FIRST DOSE 4PM THE DAY BEFORE COLONOSCOPY AND 2ND DOSE 11PM THE NIGHT BEFORE COLONOSCOPY ALLERGIES Allergies Allergen Reactions Codeine Rash Phenazopyridine Nausea Only and Rash Other Reaction(s): Nausea/vomiting, Vomiting Prednisolone Other Reaction(s): Swollen Lymph nodes Other reaction(s): Swollen Lymph nodes PROBLEMS Active Ambulatory Problems Diagnosis Date Noted No Active Ambulatory Problems Resolved Ambulatory Problems Diagnosis Date Noted No Resolved Ambulatory Problems No Additional Past Medical History HISTORY PAST MEDICAL HISTORY SOCIAL HISTORY No past medical history on file. Social History Tobacco Use Smoking status: Not on file Smokeless tobacco: Not on file Substance Use Topics Alcohol use: Not on file Drug use: Not on file FAMILY HISTORY No family history on file. SURGICAL HISTORY Past Surgical History: Procedure Laterality Date HYSTERECTOMY REVIEW OF SYSTEMS Review of Systems: Review of Systems Constitutional: Negative. HENT: Negative. Eyes: Negative. Respiratory: Negative. Cardiovascular: Negative. Gastrointestinal: Negative. Genitourinary: Negative. Musculoskeletal: Negative. Skin: Negative. Neurological: Negative. All other systems reviewed and are negative. Hematological: Negative. Endocrine: Negative. Allergic/Immunologic: Negative. OBJECTIVE Objective: Physical Exam Constitutional: Appearance: Normal appearance. She is well-developed. Cardiovascular: Rate and Rhythm: Normal rate and regular rhythm. Pulmonary: Effort: Pulmonary effort is normal. Breath sounds: Normal breath sounds. Abdominal: General: Bowel sounds are normal. There is no distension. Palpations: Abdomen is soft. Tenderness: There is no abdominal tenderness. There is no guarding or rebound. Musculoskeletal: General: No swelling. Normal range of motion. Right lower leg: No edema. Left lower leg: No edema. Neurological: Mental Status: She is alert and oriented to person, place, and time. Skin: General: Skin is warm and dry. Psychiatric: Mood and Affect: Mood normal. Behavior: Behavior normal. Vitals and nursing note reviewed. Exam conducted with a drop wire aligner present. Vitals: Estimated body mass index is 33.25 kg/m as calculated from the following: Height as of 18: 5' 6 . Weight as of this encounter: 206 lb. BP: 128/74 No LMP recorded (exact date). ASSESSMENT & PLAN ICD-10-CM 1. Pelvic mass R19.00 Lactate dehydrogenase, isoenzymes CEA HCG, tumor marker CA 125 AFP tumor marker Lactate dehydrogenase, isoenzymes CEA HCG, tumor marker CA 125 AFP tumor marker 2. Complex ovarian cyst N83.299 3. Other ascites R18.8 Lactate dehydrogenase, isoenzymes CEA HCG, tumor marker CA 125 AFP tumor marker Lactate dehydrogenase, isoenzymes CEA HCG, tumor marker CA 125 AFP tumor marker 4. H/O malignant neoplasm of rectum, rectosigmoid junction, and anus Z85.048 Lactate dehydrogenase,isoenzymes CEA HCG, tumor marker CA 125 AFP tumor marker Lactate dehydrogenase, isoenzymes CEA HCG, tumor marker CA 125 AFP tumor marker 5. H/O primary malignant neoplasm of urinary bladder Z85.51 Lactate dehydrogenase, isoenzymes CEA HCG, tumor marker CA 125 AFP tumor marker Lactate dehydrogenase, isoenzymes CEA HCG, tumor marker CA 125 AFP tumor marker Pt was referred from Dr Robles for pelvic mass. Pt given tumor markers. Pt has ascites, h/o bladderand anal cancer. Pt to be referred to Dr Morgan. Pt voiced understanding. Documented by Clarisa Ro LPN on behalf of: Florentin Escoto DO documented in this encounterHawthorn Children's Psychiatric [id number] Miscellaneous Notes* Telephone Encounter - Betty Alonso - 01/29/2025 2:55 PM EDT PT STOPPED IN OFFICE AFTER HER PRE ADMISSION TESTING. PT STATES HAS NOT BEEN ABLE TO URINATE FOR A COUPLE DAYS NOW. SHE IS GOING TO ER I ASKED NKECHI AND SHE ADVISED PT TO GO TO ER. SHE STATES ONLY HAS BEEN ABLE TO URINATE A LITTLE BIT AND COULD NOT GIVE A URINE SAMPLE AT TODAY AT HER PRE ADMISSION TESTING. PLEASE ADVISE. * Telephone Encounter - Anayeli Grissom MD - 01/29/2025 2:55 PM EDT Agree. Needs to go to the ER. Can keep OR as scheudled documented in this encounterUpper Valley [facility] Center09-23-2025 Telephone encounter Note* Telephone Encounter - Betty Alonso - 01/29/2025 2:55 PM EDT PT STOPPED IN OFFICE AFTER HER PRE ADMISSION TESTING. PT STATES HAS NOT BEEN ABLE TO URINATE FOR A COUPLE DAYS NOW. SHE IS GOING TO ER I ASKED NKECHI AND SHE ADVISED PT TO GO TO ER. SHE STATES ONLY HAS BEEN ABLE TO URINATE A LITTLE BIT AND COULD NOT GIVE A URINE SAMPLE AT TODAY AT HER PRE ADMISSION TESTING. PLEASE ADVISE. [facility]09-[facility] Telephone encounter Note* Telephone Encounter - Anayeli Grissom MD - 01/29/2025 2:55 PM EDT Agree. Needs to go to the ER. Can keep OR as scheudled [facility]09-[facility] Nurse Note* Perioperative Nursing Note - Ana Ramey RN - 01/29/2025 2:45 PM EDT Pt reports she has been having trouble urinating on and off the last two weeks . This headline writer askedwhat color her urine is and she states that she does not even go enough to color the water in the toilet. Pt unable to give urine specimen at [facility] appt today. Pt encouraged to stop over at urology office when done and notify Dr. Grissom of recent uro issues. Pt verbalized understanding. Elinor at Dr. Grissom's also made aware that pt unable to provide urine for UA/C&S. Specimen cup sent home with patient. [facility] [id number] Miscellaneous Notes* Perioperative Nursing Note - Ana Ramey RN - 01/29/2025 2:45 PM EDT Pt reports she has been having trouble urinating on and off the last two weeks . This headline writer askedwhat color her urine is and she states that she does not even go enough to color the water in the toilet. Pt unable to give urine specimen at [facility] appt today. Pt encouraged to stop over at urology office when done and notify Dr. Grissom of recent uro issues. Pt verbalized understanding. Elinor at Dr. Capellans also made aware that pt unable to provide urine for UA/C&S. Specimen cup sent home with patient. documented in this encounterUpper Valley Medical Center09-23-2025 Instructions* Patient Instructions* Ana Ramey RN - 01/29/2025 2:15 PM EDT Preoperative Education Checklist- General Surgery date: 02/12/25 Surgery time: 10a Arrival time: 8a 1. Bring a photo ID and your insurance card with you the day of surgery. You will check in at the main lobby of the [facility]- registration desk is straight ahead as soon as you walk in. Tell them you are here for surgery. 2. If you have a Living Will/Durable Power of Inclusion Paraeducator for Health Care that is not on [...] after you have bathed. 5. NO nail moroccan/acrylic on at least one finger. If you are having a hand, wrist or foot surgery then all nail moroccan and artificial/acrylic nails must be removed from [...] WITH YOU ANY DEVICES YOU MAY NEED: RD hose, ice machine, sling/swath, brace or special [...] please call the Preadmission Testing office at [phone], Mon.-Fri. 7 a.m.-3 p.m. Leave a voicemail if needed. Pre-Surgery Instructions: Medication Instructions atorvastatin (LIPITOR) 40 mg tablet Continue as prescribed, DO NOT take morning of procedure levothyroxine (SYNTHROID, LEVOTHROID) 150 MCG tablet Continue as prescribed, take morning of procedure losartan (COZAAR) 100 mg tablet Continue as prescribed, take morning of procedure pantoprazole (PROTONIX) 40 mg EC tablet Continue as prescribed, take morning of procedure amLODIPine (NORVASC) 10 mg tablet Continue as prescribed, take morning of procedure folic acid (FOLVITE) 1 mg tablet Continue as prescribed, DO NOT take morning of procedure How to Avoid an Infection after Your Surgery Your doctor will give you specific instructions, but remember: -ALWAYS wash hands before caring for your catheter and/or after using the restroom. -ALWAYS wipe from front to back. -No make creams, lotion, powder, rubbing alcohol or hydrogen peroxide on surgical area (can harm the tissue and slow healing). -Your doctor will give you specific instructions for what type of dressing or equipment you will need and how often it will need changed for infection purposes. -Do not allow anyone to touch your surgical area unless they are cleaning, checking, or redressing it (be sure they wash their hands first). -No contact of your surgical area with pets or pet hair; avoid sleeping with pets. -Take full course of antibiotic if prescribed for you after surgery- do not stop unless directed tara your physician. You may also be given an antibiotic prior to your surgery to help prevent surgical site infections. -Eat a healthy and varied diet including proteins, fruits, and vegetables to help promote wound healing and keep blood sugars under control if you are diabetic. -Smoking slows the healing process by decreasing the amount of oxygen in your blood that is needed for tissue healing. Try to avoid or stop smoking if possible. CALL your doctor if you notice any of the following: -Increased redness or hardening around the surgical area. -Increased pain or increased blood in your urine. -If urine becomes increasingly cloudy, you notice sediment or particles in your urine, or you notice a foul odor or yellow or green discharge. -Fever higher than 101 degrees Fahrenheit for more than 4 hours. If you have a question, call your doctor s office. Go to the follow-up appointment with your doctor. documented in this encounterUpper Valley Medical Center09-03-2025 Miscellaneous Notes* Telephone Encounter - Betty Alonso - 01/09/2025 8:54 AM EDT Yumiko called from Dr. Robles office in [place]. Dr. Robles is requesting a call from Dr. Grissom as he saw her in clinic and wants to update about the patient. Please call Dr. Robles at your earliest convenience at [phone]. The patient is scheduled to be seen next Tuesday. Please call. Thank you. documented in this encounterUpper Valley Medical Center09-03-2025 Telephone encounter Note* Telephone Encounter - Betty Alonso - 01/09/2025 8:54 AM EDT Yumiko called from Dr. Robles office in [place]. Dr. Robles is requesting a call from Dr. Grissom as he saw her in clinic and wants to update about the patient. Please call Dr. Robles at your earliest convenience at [phone]. The patient is scheduled to be seen next Tuesday. Please call. Thank you. [facility]08-21-2025 Evaluation note* Author Dimple [facility] HospitalhooctavioFrancis 2024 8:[id number] female with history of rectal cancer s/p [...] panel, fecal elastase, will arrange for colonoscopy [facility] Work Phone: 1(557) 753-242908-21-2025 Evaluation note* Author [facility] HospitalAuthoredAugust 2024 8:[id number]-pos female with history of rectal cancer s/p [...] fecal elastase, will arrange for colonoscopy Author [facility] HospitalAuthoredOctober 2024 1:[id number] female with history of rectal cancer s/p [...] is 8. Continue to monitor MELD labs - Ultrasound on 11/27/2024 showed no liver mass. Will arrange for ultrasound and check AFP every 6 months for hepatocellular carcinoma screening. - Regarding alternating constipation/diarrhea, TSH was elevated, will refer to endocrinology for evaluation. Fecal calprotectin is normal, colonic biopsies were negative for microscopic colitis, duodenal biopsies were negative for celiac HIV and C. difficile were negative. [facility] Work Phone: 1(239) 931-143108-21-2025 Evaluation note* Author [facility] HospitalAuthoredAuloyda 2024 8:[id number]-lnc female with history of rectal cancer s/p [...] fecal elastase, will arrange for colonoscopy Author [facility] HospitalAuthoredOctober 2024 1:[id number]-jfg female with history of rectal cancer s/p [...] celiac HIV and C. difficile were negative. [facility] Work Phone: 1(282) 176-179808-15-2025 Nurse Note* Perioperative Nursing Note - Ana Ramey RN - 12/21/2024 9:55 AM EDT Preoperative Education Checklist- General Surgery date: 12/25/24 Surgery time: 1030a Arrival time: 930a 1. Bring a photo ID and your insurance card with you the day of surgery. You will check in at the main lobby of the [facility]- registration desk is straight ahead as soon as you walk in. Tell them you are here for surgery. 2. If you have a Living Will/Durable Power of Inclusion Paraeducator for Health Care that is not on [...] after you have bathed. 5. NO nail moroccan/acrylic on at least one finger. If you are having a hand, wrist or foot surgery then all nail moroccan and artificial/acrylic nails must be removed from [...] WITH YOU ANY DEVICES YOU MAY NEED: RD hose, ice machine, sling/swath, brace or special [...] please call the Preadmission Testing office at [phone], Mon.-Fri. 7 a.m.-3 p.m. Leave a voicemail [...] (NITROSTAT) 0.4 MG SL tablet Not Applicable [employer] [id number] Miscellaneous Notes* Perioperative Nursing Note - Ana Ramey RN - 12/21/2024 9:55 AM EDT Preoperative Education Checklist- General Surgery date: 12/25/24 Surgery time: 1030a Arrival time: 930a 1. Bring a photo ID and your insurance card with you the day of surgery. You will check in at the main lobby of the [facility]- registration desk is straight ahead as soon as you walk in. Tell them you are here for surgery. 2. If you have a Living Will/Durable Power of Inclusion Paraeducator for Health Care that is not on [...] after you have bathed. 5. NO nail moroccan/acrylic on at least one finger. If you are having a hand, wrist or foot surgery then all nail moroccan and artificial/acrylic nails must be removed from [...] WITH YOU ANY DEVICES YOU MAY NEED: RD hose, ice machine, sling/swath, brace or special [...] please call the Preadmission Testing office at [phone], Mon.-Fri. 7 a.m.-3 p.m. Leave a voicemail [...] SL tablet Not Applicable documented in this encounterUpper Valley Medical Center08-05-2025 Radiology Diagnostic [facility]UN[facility] Main [place] [address] [place] [address] CT Scan Report Signed Patient: Yaa Duggan MR#: [id number] : 1950 Acct:[id number] Age/Sex: 74 / F ADM Date: 5 Loc: CT Room: Type: [facility] Attending Dr: Kate Prado MD Copies to: [...] Jr., D.OHeriberto 12/11/2024 2:39 PM Dictation Location: [facility]--22 Transcribed By: [facility] 12/11/24 143 Dictated By: Jersey Warner Jr DO 12/11/24 1433 Signed By: 12/11/24 1439 [facility]07-14-2025 Evaluation note* Diagnosis Onset Date Resolution Status Admit Date BMI 34.0-34.9,adult acuteJuly 2024 11:16amEssential (primary) hypertensionacuteJuly 2024 11:16amHistory of bladder canceracuteJuly 2024 11:16amHistory of rectal canceracuteJuly 2024 11:16amHypothyroidismacuteJuly 2024 11:16am Medicare annual wellness visit, subsequentacuteJuly 2024 11:16amPure hypercholesterolemiaacuteJuly 2024 11:16amRight-sided chest painacuteJuly 2024 11:16amScreening mammogram for breast canceracuteJuly 2024 11:16amThyroid noduleacuteJuly 2024 11:16am [facility] Work Phone: 1(685) 244-296512-24-2024 History of Present illness Narrative* Alley Lucas, [...] to be instructed in home exercise program. [facility] Goals: To be met in 10 weeks [...] Date: documented in this encounterHawthorn Children's Psychiatric HospitalAyzfbaemrq08-69-7904 History of Present illness Narrative* Alley Lucas, [...] to be instructed in home exercise program. [facility] Goals: To be met in 10 weeks [...] Date: documented in this encounterHawthorn Children's Psychiatric HospitalQqayevnykz75-36-1738 History of Present illness Narrative* Alley Lucas, [...] 2006, 2011; universal Subjective: neck pain Pain: 3/10 Objective: PT Evaluation (04/19/2024) CERVICAL CROM: limited [...] to be instructed in home exercise program. 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 Bring a photo ID and your insurance card with you the day of surgery. You will check in at the main lobby of the [facility]- registration desk is straight ahead as soon as you walk in. Tell them you are here for surgery. 2. If you have a Living Will/Durable Power of Inclusion Paraeducator for Health Care that is not on [...] after you have bathed. 5. NO nail moroccan/acrylic on at least one finger. If you are having a hand, wrist or foot surgery then all nail moroccan and artificial/acrylic nails must be removed from [...] WITH YOU ANY DEVICES YOU MAY NEED: RD hose, ice machine, sling/swath, brace or special [...] please call the Preadmission Testing office at [phone], Mon.-Fri. 7 a.m.-3 p.m. Leave a voicemail if needed. Pre-Surgery Instructions: Medication Instructions atorvastatin (LIPITOR) 20 mg tablet Check with prescribing doctor for instructions cholestyramine (QUESTRAN) 4 gram powder Check with prescribing doctor for instructions levothyroxine (SYNTHROID, LEVOTHROID) 175 MCG tablet Check with prescribing doctor for instructions losartan (COZAAR) 50 mg tablet Check with prescribing doctor for instructions documented in this encounterUpper Valley Medical Center08-12-2024 Nurse Note* Perioperative Nursing Note - Diana Steen RN - 12/19/2023 4:20 PM EDT Preoperative Education Checklist- General Surgery date: 12/20/23 Surgery time: 1000 Arrival time: 0900 1. Bring a photo ID and your insurance card with you the day of surgery. You will check in at the main lobby of the [facility]- registration desk is straight ahead as soon as you walk in. Tell them you are here for surgery. 2. If you have a Living Will/Durable Power of Inclusion Paraeducator for Health Care that is not on [...] after you have bathed. 5. NO nail moroccan/acrylic on at least one finger. If you are having a hand, wrist or foot surgery then all nail moroccan and artificial/acrylic nails must be removed from [...] WITH YOU ANY DEVICES YOU MAY NEED: RD hose, ice machine, sling/swath, brace or special [...] please call the Preadmission Testing office at [phone], Mon.-Fri. 7 a.m.-3 p.m. Leave a voicemail if needed. Pre-Surgery Instructions: Medication Instructions atorvastatin (LIPITOR) 20 mg tablet Check with prescribing doctor for instructions cholestyramine (QUESTRAN) 4 gram powder Check with prescribing doctor for instructions levothyroxine (SYNTHROID, LEVOTHROID) 175 MCG tablet Check with prescribing doctor for instructions losartan (COZAAR) 50 mg tablet Check with prescribing doctor for instructions [employer]12-28-2023 Evaluation note* Encounter Date Diagnosis Assessment Notes Treatment Notes Treatment Clinical Notes Apr, Bronchitis (ICD-10 - J40) Take antibiotic as directed. If develop wheezing, chest tightness, itching, bad cough, blue skin color, seizures, swelling of face, lips, tongue, or throat report to ED. [facility] Other [id number] Hospital Discharge instructions Patient Education 04/08/2023 10:19:26 [...] Bulgur wheat. Millet. Quinoa. Bran muffins. Popcorn. [place] wafer crackers. Meats and other proteins [place] beans, kidney beans, and pritchard beans. Soybeans. [...] Cream cheese. Sour cream. Fats and oils Nicut. Beverages Soft drinks. Other foods Cakes and [...] provider. Document Revised: 08/28/2020 Document Reviewed: 08/28/2020 [employer] Patient Education 2022 [employer]. Follow Up Care 01/07/2023 13:44:26 With:Ashely Worthy CNP Address: When:[address] [facility] 11-17-2023 History of Present illness Narrative* Eleazar Murray MD - 03/25/2023 1:10 PM EST Subjective [...] comorbidity present documented in this encounterC[facility] Work Phone: 1(163) 177-102511-17-2023 Instructions* Patient Instructions* Aleja Trinidad LPN - [...] as needed documented in this encounterCleveland Clinic Mary[facility] Hospital Work Phone: 1(216) 457-610910-27-2023 Evaluation note* Encounter Date Diagnosis Assessment Notes Treatment Notes Treatment Clinical Notes Feb, SOB (shortness of breath) (ICD-1 0 - R06.02) Discussed recent normal cardiac cath. Add steroid to help with dyspnea symptom. Check CXR and EKG to be complete. Assess renal function in near future with lab to address the urinary symptoms. [facility] Other 09-15-2023 History general Narrative - Reported* Type Description Date Medical History Hypothyroidism Medical HistoryHypertensionMedical HistoryBladder CancerMedical HistoryAnal CancerSurgical [id number] HistoryHeart Cath01/21/2023 Hospitalization HistorySee Surgical Hx [facility] Other 09-11-2023 Evaluation note* Encounter Date Diagnosis [...] chest pain or jaw pain occurs again. Jan,yspnea, unspecified type (ICD-10 - R06.00)as above [facility] Other 09-01-2023 Hospital Discharge instructions Patient Education [...] oral rehydration solution (ORS). This is an wjri-rvl-olbzjya medicine that helps return your body to [...] drinks, sports drinks, and soda. Eat bland, bvqh-po-jlliqi foods in small amounts as you are able. These foods include bananas, applesauce, rice, lean meats, toast, and crackers. Avoid alcohol. Avoid spicy or fatty foods. Medicines Take qejv-uhm-wfhurgm and prescription medicines only as told by your health care provider. If you were prescribed an antibiotic medicine, take it as told by your health care provider. Do notstop using the antibiotic even if you start to feel better. General instructions Wash your hands often using soap and water. If soap and water are not available, use a hand research affiliate. Others in the household should wash their [...] soap and water are not available, usehand research affiliate. Contact a health care provider if your diarrhea gets worse or you have new symptoms. Get help right away if you have signs of dehydration. This information is not intended to replace advice given to you by your health care provider. Make sure you discuss any questions you have with your health care provider. Document Revised: 11/04/2021 Document Reviewed: 11/04/2021 J[employer] Patient Education 2022 [employer]. Follow Up Care 12/03/2022 14:02:26 With:Ashely Worthy CNP Address: When:[address] [facility] 08-31-2023 Evaluation note* Encounter Date Diagnosis Assessment Notes Treatment Notes Treatment Clinical Notes Dec, Bronchitis (ICD-10 - J40) Bronchitis: Care Instructions material was printed. Encourage fluids and rest. Symptoms should improve within the next 4-7 days. Use inhaler at least twice for the next 2 days, and then as needed forwheezing. Cough may linger after viral or bacterial infections; sometimes for weeks. Patient shouldfollow up with PCP if symptoms persist or worsen. Patient advised to go to ER immediately if experiencing shortness of breath or difficulty breathing. Patient verbalized understanding and agreement with treatment plan. Dec,Essential (primary) hypertension (ICD-10 - I10)Increase losartan to 2 daily - call w bps on 01/11 for followup. Simparel Other 07-28-2023 Hospital Discharge instructions Patient Education [...] oral rehydration solution (ORS). This is an ogud-gtn-povzepl medicine that helps return your body to [...] drinks, sports drinks, and soda. Eat bland, ojyd-rv-kffbbz foods in small amounts as you are able. These foods include bananas, applesauce, rice, lean meats, toast, and crackers. Avoid alcohol. Avoid spicy or fatty foods. Medicines Take ocqw-qkw-xihauhp and prescription medicines only as told by your health care provider. If you were prescribed an antibiotic medicine, take it as told by your health care provider. Do notstop using the antibiotic even if you start to feel better. General instructions Wash your hands often using soap and water. If soap and water are not available, use a hand research affiliate. Others in the household should wash their [...] soap and water are not available, usehand research affiliate. Contact a health care provider if your diarrhea gets worse or you have new symptoms. Get help right away if you have signs of dehydration. This information is not intended to replace advice given to you by your health care provider. Make sure you discuss any questions you have with your health care provider. Document Revised: 11/04/2021 Document Reviewed: 11/04/2021 JDF Patient Education 2022 [employer]. Follow Up Care 09/03/2022 14:00:02 With:Ashely Worthy CNP Address: When:[address] [facility] 04-28-2023 Hospital Discharge instructions [...] hard liquor (44 mL). General instructions Take bqts-ehv-cjtfnsk and prescription medicines only as told by [...] provider. Document Revised: 08/13/2020 Document Reviewed: 08/13/2020 J[employer] Patient Education 2022 [employer]. 09/03/2022 13:29:38 Proctitis Proctitis Proctitis is swelling [...] Follow these instructions at home: Medicines Take ncjy-kyr-igaapko and prescription medicines only as told by [...] to keep your urine pale yellow. ?Take sane-nvk-znfotoz or prescription medicines. ?Eat foods that are [...] provider. Document Revised: 11/04/2021 Document Reviewed: 11/04/2021 JDF Patient Education 2022 [employer] Follow Up Care 08/30/2022 09:35:31 With:Ashely Worthy CNP Address: When:[address] [facility] 03-22-2023 Evaluation note* Encounter Date Diagnosis Assessment Notes Treatment Notes Treatment Clinical Notes Jul, Elevated fasting glucose (ICD-10 - R73.01) Simparel Other 03-14-2023 Evaluation + Plan note Diagnostic Tests Pending * Pancreatic Elastase, Fecal 07/20/22 * Giardia lamblia, Direct Detection EIA 07/20/22 * O & P Exam, Routine 07/20/22 [facility]03[facility] Evaluation + Plan note Future Scheduled Tests Laboratory* Pancreatic Elastase, Fecal 07/15/22 * Fecal WBC Lactoferrin 07/15/22 * Giardia lamblia, Direct Detection EIA 07/15/22 * O & P Exam, Routine 07/15/22 * Clostridium Difficile PCR 07/15/22 * Enteric Panel by PCR 07/15/[address] [facility] 03-09-2023 Evaluation + Plan note Diagnostic Tests Pending * t-Transglutaminase IgA 07/15/22 * IgA, Quant. 07/15/22 Future Scheduled Tests Laboratory* Pancreatic Elastase, Fecal 07/15/22 * Fecal WBC Lactoferrin 07/15/22 * Giardia lamblia, Direct Detection EIA 07/15/22 * O & P Exam, Routine 07/15/22 * Clostridium Difficile PCR 07/15/22 * Enteric Panel by PCR 07/15/22 [facility]02-28-2023 Evaluation note* Encounter Date Diagnosis Assessment Notes Treatment Notes Treatment Clinical Notes Jun, Pure hypercholesterolemia (ICD-1 0 - E78.00) Simparel Other 02-27-2023 Evaluation note* Encounter Date Diagnosis [...] reviewed and amended by provider signed below. Jun,Essential (primary) hypertension (ICD-10 - I10)due for labs. 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 Found normal MRI from 06/2020. States that she would prefer to pursue the GI referral prior to any neurology intervention for her dizziness. Jun,Other specified hypothyroidism (ICD-10 - E03.8)due for labs Jun,hronic diarrhea (ICD-10 - K52.9)Pt requests Dr. Morris. Jun,Screening mammogram for breast cancer (ICD-10 - Z12.31)Patient is due for her routine yearly screening mammogram. Screening mammogram ordered today. Simparel Other Chief complaint Narrative - Reported* YAA [...] of her progressive dyspnea and chest pain. [place] [address] DO Work Phone: Evaluation + Plan note Future Appointments Appointment Date:12/03/2022 01:20:00 PM Scheduled Provider:Ashely Worthy CNP Location:[facility] Appointment Type:[facility] Follow Up [facility] Evaluation + Plan note Future Appointments Appointment Date:12/03/2022 01:20:00 PM Scheduled Provider:Ashely Worthy CNP Location:[facility] Appointment Type:[facility] Follow Up Diagnostic Tests Pending * Celiac Disease Comprehensive 09[facility]03/22 [facility] Future Appointments Appointment Date:04/08/2023 10:00:00 AM Scheduled Provider:Ashely Worthy CNP Location:[facility] Appointment Type:[facility] Follow Up [facility] Evaluation + Plan note Future Appointments Appointment Date:04/09/2024 10:00:00 AM Scheduled Provider:Ashely Worthy CNP Location:[facility] Appointment Type:[facility] Follow Up [facility] Evaluation + Plan note Future Appointments Appointment Date:01/07/2023 01:00:00 PM Scheduled Provider:Ashely Worthy CNP Location:[facility] Appointment Type:[facility] Follow Up [facility] Evaluation noteNo [employer] Other Evaluation note* Diagnosis Essential hypertension, benign- Primary Mixed hyperlipidemia Atypical chest pain Other chest pain Class 2 obesity with body mass index (BMI) of 35.0 to 35.9 in adult, unspecified obesity type, unspecified whether serious comorbidity present documented in this encounter [facility] Work Phone: Evaluation note* Diagnosis Vertigo- Primary Dizziness and giddiness documented [facility] this encounter [facility] Diagnosis Onset Date Resolution Status Admit Date Essential (primary) hypertension acuteJuly 2024 11:16amHypothyroidismacuteJuly 2024 11:16amMedicare annual wellness visit, subsequentacuteJuly 2024 11:16amPure hypercholesterolemiaacuteJuly 2024 11:16amRight-sided chest painacuteJuly 2024 11:16amScreening mammogram for breast canceracuteJuly 2024 11:16amThyroid noduleacuteJuly 2024 11:16am [facility] Work Phone: Evaluation note* Author Dimple Caraballo [facility] Center[facility] 20[facility] 8:[id number]-ofz female with history of rectal cancer s/p [...] panel, fecal elastase, will arrange for colonoscopy [facility] Work Phone: Evaluation note* Diagnosis Pelvic mass Abdominal or pelvic swelling, mass or lump, unspecified site Complex ovarian cyst Other ascites H/O malignant neoplasm of rectum, rectosigmoid junction, and anus H/O primary malignant neoplasm of urinary bladder [facility] Diagnosis Malignant neoplasm of overlapping sites of bladder (CMS-HCC)- Primary Preop examination- Primary Unspecified pre-operative examination Hypertension, unspecified type Preop examination Unspecified pre-operative examination Hypertension, unspecified type Malignant neoplasm of overlapping sites of bladder (CMS-HCC) documented in this encounter [facility]* Diagnosis Malignant neoplasm of overlapping sites of bladder (CMS-HCC)- Primary Pelvic mass- Primary Abdominal or pelvic swelling, mass or lump, unspecified site Complex ovarian cyst Other ascites Other abnormal tumor markers Cirrhosis of liver with ascites, unspecified hepatic cirrhosis type (CMS-HCC) Abnormal findings on diagnostic imaging of liver and biliary tract Malignant neoplasm of overlapping sites of bladder (CMS-HCC) documented in this encounter [facility]* Diagnosis Encounter for follow-up surveillance of bladder cancer- Primary Pelvic mass Abdominal or pelvic swelling, mass or lump, unspecified site Complex ovarian cyst Other ascites Cirrhosis of liver with ascites, unspecified hepatic cirrhosis type (CMS-HCC) Preop testing Unspecified pre-operative examination documented in this encounter [facility]* Diagnosis Pelvic mass- Primary Abdominal or pelvic swelling, mass or lump, unspecified site Complex ovarian cyst Other ascites Preop testing Unspecified pre-operative examination Cirrhosis of liver with ascites, unspecified hepatic cirrhosis type (CMS-HCC) Other abnormal tumor markers [facility] Diagnosis Pre-op testing- Primary Unspecified pre-operative examination Pelvic mass Abdominal or pelvic swelling, mass or lump, unspecified site Complex ovarian cyst Other ascites Preop testing Unspecified pre-operative examination Cirrhosis of liver with ascites, unspecified hepatic cirrhosis type (CMS-HCC) Other abnormal tumor markers documented in this encounter [facility]* Diagnosis Adnexal mass- Primary Other specified symptom associated with female genital organs Pelvic mass- Primary Abdominal or pelvic swelling, mass or lump, unspecified site Cirrhosis of liver with ascites, unspecified hepatic cirrhosis type (CMS-HCC) documented in this encounter [facility]* Diagnosis Hypergammaglobulinemia- Primary Other specified diseases of blood and blood-forming organs Elevated serum immunoglobulin free light chains documented in this encounter [facility]* Diagnosis Encounter for postoperative care- Primary documented in this encounter [facility]* Diagnosis Malignant neoplasm of overlapping sites of bladder (CMS-HCC)- Primary documented in this encounter [facility]* Diagnosis Malignant neoplasm of overlapping sites of bladder (CMS-HCC)- Primary documented in this encounter [facility]* Diagnosis Malignant neoplasm of overlapping sites of bladder (CMS-HCC)- Primary documented in this encounter [facility]* Diagnosis Malignant neoplasm of overlapping sites of bladder (CMS-HCC)- Primary documented in this encounter [facility]* Diagnosis Post-operative state- Primary Other postprocedural status Cystadenoma Benign neoplasm of unspecified site documented in this encounter [facility]* Diagnosis Malignant neoplasm of overlapping sites of bladder (CMS-HCC)- Primary documented in this encounter [facility]* Diagnosis Malignant neoplasm of overlapping sites of bladder (CMS-HCC)- Primary [facility] N[facility] - Reported* Type Description Date Medical History Hypothyroidism Medical HistoryHypertensionMedical HistoryBladder CancerMedical HistoryAnal CancerSurgical [id number] Simparel Other History general Narrative - Reported* Type Description Date Medical History Hypothyroidism Medical HistoryHypertensionMedical HistoryBladder CancerMedical HistoryAnal CancerSurgical [id number] HistorySee Surgical Hx [facility] Danal d/b/a [employer] Other Hospital course Narrative No data available for this section [facility] Hospital Discharge instructions No data available for this section [facility] Hospital Discharge instructions Additional [...] NOT operate machinery such as power tools, VMTurbon mowers, Around Knowledgewers, sewing machines, etc. for 24 hours. - [...] NOT operate machinery such as power tools, VMTurbon mowers, snow blowers, sewing machines, etc. for [...] pantoprazole 40 mg daily - Office number [phone]. [facility] Work Phone: InstructionsNot on filedocumented in this encounter [facility]ructionsNot on filedocumented in this encounter [facility]ructionsNot on filedocumented in this encounter [facility] System[facility]ructionsNot on filedocumented in this encounter [facility]InstructionsNot on filedocumented in this encounter [facility]ructionsNot on filedocumented in this encounter [facility]ructionsNot on filedocumented in this encounter [facility] SystemInstructionsNot on filedocumented in this encounter [facility] SystemInstructionsNot on filedocumented in this encounter [facility] SystemInstructionsNot on filedocumented in this encounter [facility] SystemProgress note No data available for this section [facility] Reason for referral (narrative)No reason for referral information availableThe [facility] Work Phone: Reason for visit Narrative* Rehabilitation - Outpatient (Routine) - AuthorizedSpecialtyDiagnoses / ProceduresReferred By ContactReferred To ContactPhysical Therapy Diagnoses Vertigo Procedures ND PHYSICAL THERAPY EVALUATION LOW COMPLEX 20 MINS ND OFFICE/OUTPATIENT NEW HIGH MDM EVALUATION Kate Prado MD [address] [place] [address] Phone: tel: fax: Alley Lucas, PT Referral IDStatusFelicityasonStart DateExpiration DateVisits RequestedVisits [id number] [facility] HealthcareReason for visit Narrative* Rehabilitation - Outpatient (Routine) - AuthorizedSpecialtyDiagnoses / ProceduresReferred By ContactReferred To ContactPhysical Therapy Diagnoses Vertigo Procedures ND PHYSICAL THERAPY EVALUATION LOW COMPLEX 20 MINS ND OFFICE/OUTPATIENT NEW HIGH MDM EVALUATION Kate Prado MD [address] [place] [address] Phone: tel: fax: Alley Lucas, PT Referral IDStatusFelicityasonStart DateExpiration DateVisits RequestedVisits [id number]/[id number] [facility] Healthcare Summary Purpose Family History Unknown Family Member Name Dates Details Lupus: Mother Status:ActiveNo pertinent family history: Father(V49.89, Z78.9) Status:ActiveFamily history of asthma: Brother(V17.5, Z82.5) Status:ActiveFamily history of CABG: Brother(V17.49, Z82.49) Status:ActiveFamily history of coronary artery disease: Brother(V17.3, Z82.49) Status:ActiveCarotid stenosis, non-symptomatic: Mother Status:ActiveCarotid artery plaque: Mother Status:Active Relationship Condition Age at Onset Recorded Date/T rohith brother History of heart surgery Unknown fatherDeceasedUnknownmotherDeceasedUnknown Relationship Condition Age at Onset Recorded Date/T rohith brother History of heart surgery Unknown fatherDeceasedUnknownmotherDeceasedUnknownLupusUnknown Advance Directives Advance Directive Response Recorded Date/ Time Advance Directives No January 8:24am Advance Directive Response Recorded Date/ Time Advance Directives No February 27, 2025 1:40pm Reason for Referral Reason Labile BPs, dyspnea, chest pressure, jaw pain, leaving for vacation on 01/29. Today and last OV w labs Diagnosis 1 Essential (primary) hypertension (I10) Referral Organization [facility] Med ePad brittani Referring Provider First Name Kate Referring Provider Last Name Eve Referring Provider Specialty [facility] [employer] Referred Organization [facility] enter Referred Address [address] [facility] [address] [place] [address] Referred Provider Specialty Cardiology Referral Priority Routine Reason 07/15/22 Chronic d iarrhea Diagnosis 1 Chronic diarrhea (K5 2.9) Referral Organization [facility] Med ePad brittani Referring Provider First Name Kate Referring Provider Last Name Eve Referring Provider Specialty [facility] [employer] Referred Organization [facility] Referred Provider Dinorah Morris Referred Address [address] [place],[address] Referred Provider Specialty Gastroentero logy Referral Priority [...] 9: 37am hx of rectal ca/dysphagia/cirrhosis Jan [email or web address] 10:35am Chief Complaint Admit Date K86.89 December 11, 2024 12: 17pm ELEVATED LFTS,CIRRHOTIC LIVER,DISEASE OF PANCREAS December 27, 2024 7:54am K74.60 December 28, 2024 9: 37am hx of rectal ca/dysphagia/cirrhosis Jan [email or web address] 10:35am Amb Documentation January 23, 2025 11:39am Amb Documentation February 19, 2025 9 :45am Discuss possible liver Bx February 27, 2025 1:02pm Reason for Visit Admit Date Cirrhosis December 27, 2024 7: 54am Dysphagia December 27, 2024 7: 54am Elevated LFTs December 27, 2024 7: 54am History of rectal cancer December 27 7:54am Pancreatic disease December 27, 2024 7: 54am Ascites February 27, 2025 1 :02pm Cirrhosis February 27, 2025 1 :02pm Elevated LFTs February 27, 2025 1 :02pm Mass of head of pancreas February 27, 2 025 1:02pm Chief Complaint Admit Date K86.89 December 11, 2024 12: 17pm ELEVATED LFTS,CIRRHOTIC LIVER,DISEASE OF PANCREAS December 27, 2024 7:54am K74.60 December 28, 2024 9: 37am hx of rectal ca/dysphagia/cirrhosis Sept emb2024 10:35am Amb Documentation January 23, 2025 11:39am Amb Documentation February 19, 2025 9 :45am Discuss possible liver Bx February 27, 2025 1:02pm k74.60 March 01, 2025 8 :30am Reason for Visit Admit Date Cirrhosis December [...] 1 :02pm Primary biliary cholangitis February 1:02pm Additional Source Comments INFORMATION SOURCE (unrecogn ized section and content) DATE CREATED AUTHOR 07/14/2022 [facility] DATE CREATED AUTHOR AUTHOR'S ORGANIZ ATION 01/21/2023 [employer] DATE CREATED AUTHOR AUTHOR'S ORGANIZ ATION 01/25/2023 [facility] DATE CREATED AUTHOR AUTHOR'S ORGANIZ ATION 03/28/2023 [facility] DATE CREATED AUTHOR AUTHOR'S ORGANIZ ATION 04/10/2024 [facility] DATE CREATED AUTHOR AUTHOR'S ORGANIZ ATION 01/31/2025 [facility] DATE CREATED AUTHOR AUTHOR'S ORGANIZ ATION 02/10/2025 [facility] DATE CREATED AUTHOR AUTHOR'S ORGANIZ ATION 03/05/2025 [facility] DATE CREATED AUTHOR AUTHOR'S ORGANIZ ATION 03/08/2025 [facility] DATE CREATED AUTHOR AUTHOR'S ORGANIZ ATION 03/10/2025 [facility] DATE CREATED AUTHOR AUTHOR'S ORGANIZ ATION 03/20/2025 [facility] Patient Care team informatio n (unrecognized section and content) Team MemberRelationshipSpecialtyStart DateEnd Date Kate Prado MD [address] [place] [address] [place] [address] [facility] - General01/19/23Team MemberRelationshipSpecialtyStart DateEnd Date Kate Prado MD [address] [place], [place] [address], [place] [phone] PCP - [facility]12/26/20 Team Status: Active Member Role Status Dates Kate Prado MD Primary Care Provider Active Team Status: Inactive Member Role Status Dates Kate Prado MD Primary Care Provider Active Start: November 19, 2024 End: November 19, 2024Megan Ordonezending ProviderActiveStart: November 19, 2024 End: November 19, 2024 Team Status: Inactive Member Role Status Dates Kate Prado MD Primary Care Provider Active Start: December 11, 2024 End: December 11, 2024Latosha Ordonez ProviderActiveStart: December 11, 2024 End: December 11, 2024Team MemberRelationshipSpecialtyStart DateEnd Date Kate Prado MD [address] [place] [phone] PCP - [facility]12/26/20 Team Status: Inactive Member Role Status Dates Kate Prado MD Primary Care Provider Active Start: December 27, 2024 End: December 27, 2024ImaMegan Joshiending ProviderActiveStart: December 27, 2024 End: December 27, 2024 Team Status: Inactive Member Role Status Dates Kate Prado MD Primary Care Provider Active Start: December 28, 2024 End: December 28, 2024Imad ALEAH Caraballottending ProviderActiveStart: December 28, 2024 End: December 28, 2024Team MemberRelationshipSpecialtyStart DateEnd Date Kate Prado MD [address] [place] [facility] [place] [address] [facility]12/26/20 Team Status: Active Member Role Status Dates Kate Prado MD Primary Care Provider Active Start: January 01, 2025 Emily Robles MDAttending ProviderActiveStart: January 01, 2025 Team Status: Active Member Role Status Dates Kate Prado MD Primary Care Provider Active Start: January 22, 2025 Dimple Caraballo MDAttending ProviderActiveStart: January 22, 2025 Dimple Caraballo MDOther ProviderActiveStart: January 22, 2025 Team MemberRelationshipSpecialtyStart DateEnd Date Kate Prado MD [address] [place] [facility] [place] [address] PCP - GeneralFamily Medicine01/30/25Team MemberRelationshipSpecialtyStart DateEnd Date Kate Prado MD [address] [place] [facility] [place] [address] PCP - GeneralFamily Medicine01/30/25Team MemberRelationshipSpecialtyStart DateEnd Date Kate Prado MD [address] [place] [facility] [place] [address] PCP - GeneralFamily Medicine12/26/20Team MemberRelationshipSpecialtyStart DateEnd Date Kate Prado MD [address] [place] [facility] [place] [address] PCP - GeneralFamily Medicine12/26/20Team MemberRelationshipSpecialtyStart DateEnd Date Kate Prado MD [address] [place] [facility] [place] [address] PCP - GeneralFamily Medicine12/26/20Team MemberRelationshipSpecialtyStart DateEnd Date Kate Prado MD [address] [place] [facility] [place] [address] PCP - GeneralFamily Medicine12/26/20Team MemberRelationshipSpecialtyStart DateEnd Date Kate Prado MD [address] [place] [facility] [place] [facility] [place] [address] PCP - GeneralFamily Medicine12/26/20Team MemberRelationshipSpecialtyStart DateEnd Date Kate Prado MD [address] [place] [facility] [place] [address] PCP - GeneralFamily Medicine12/26/20Team MemberRelationshipSpecialtyStart DateEnd Date Kate Prado MD [address] [place] [facility] [place] [address] PCP - GeneralFamily Medicine12/26/20Team MemberRelationshipSpecialtyStart DateEnd Date Kate Prado MD [address] [place] [facility] [place] [address] PCP - GeneralFamily Medicine12/26/20Team MemberRelationshipSpecialtyStart DateEnd Date Kate Prado MD [address] [place] [facility] [place] [address] PCP - GeneralFamily Medicine12/26/20Team MemberRelationshipSpecialtyStart DateEnd Date Kate Prado MD [address] [place] [facility] [place] [address] PCP - GeneralFamily Medicine12/26/20 Team Status: Active Member Role/Relationship Status Dates Kate Prado MD Primary Care Provider Active Team Status: Inactive Member Role/Relationship Status Dates Kate Prado MD Primary Care Provider Active Start: December 11, 2024 End: December 11, 2024Kate Prado , MDAttending ProviderActiveStart: December 11, 2024 End: December 11, 2024 Team Status: Inactive Member Role/Relationship Status Dates Kate Prado MD Primary Care Provider Active Start: December 27, 2024 End: December 27, 2024Imad Asaad , MDAttending ProviderActiveStart: December 27, 2024 End: December 27, 2024 Team Status: Inactive Member Role/Relationship Status Dates Kate Prado MD Primary Care Provider Active Start: December 28, 2024 End: December 28, 2024Imad Asaad , MDAttending ProviderActiveStart: December 28, 2024 End: December 28, 2024 Team Status: Active Member Role/Relationship Status Dates Kate Prado MD Primary Care Provider Active Start: January 01, 2025 Emily Robles , MDAttending ProviderActiveStart: January 01, 2025 Team Status: Active Member Role/Relationship Status Dates Kate Prado MD Primary Care Provider Active Start: January 22, 2025 Imomega Caraballo , MDAttending ProviderActiveStart: January 22, 2025 Dimple Caraballo MDOther ProviderActiveStart: January 22, 2025 Team Status: Active Member Role/Relationship Status Dates Kate Prado MD Primary Care Provider Active Start: January 23, 2025 Gillian Cueva CMAAttending ProviderActiveStart: January 23, 2025 Team Status: Active Member Role/Relationship Status Dates Kate Prado MD Primary Care Provider Active Start: February 19, 2025 Guera Castro CMAAttending ProviderActiveStart: February 19, 2025 Team Status: Inactive Member Role/Relationship Status Dates Kate Prado MD Primary Care Provider Active Start: February 27, 2025 End: February 27, 2025Imad Asaomega , MDAttending ProviderActiveStart: February 27, 2025 End: February 27, 2025 Team Status: Inactive Member Role/Relationship Status Dates Kate Prado MD Primary Care Provider Active Start: March 01, 2025 End: March 01, 2025Imad Asaomega , MDAttending ProviderActiveStart: March 01, 2025 End: March 01, 2025Team MemberRelationshipSpecialtyStart DateEnd Date Kate Prado MD [address] [place] [facility] [place] [address] PCP - GeneralFamily Medicine12/26/20Team MemberRelationshipSpecialtyStart DateEnd Date Kate Prado MD [address] [place] [facility] [place] [address] PCP - GeneralFamily Medicine12/26/20Team MemberRelationshipSpecialtyStart DateEnd Date Kate Prado MD [address] [place] [facility] [place] [address] PCP - GeneralFamily Medicine12/26/20Team MemberRelationshipSpecialtyStart DateEnd Date Kate Prado MD [address] [place] [facility] [place] [address] PCP - GeneralFamily Medicine12/26/20Team MemberRelationshipSpecialtyStart DateEnd Date Kate Prado MD [address] [place] [facility] [place] [address] PCP - GeneralFamily Medicine12/26/20Team MemberRelationshipSpecialtyStart DateEnd Date Kate Prado MD [address] [place] [facility] [place] [address] PCP - GeneralFamily Medicine12/26/20 REASON FOR VISIT (unrecogniz ed section and content) ReasonCommentsPost-CathReasonCommentsConsultPt present today for a consult visit w/Dr. Escoto. Pt was referred by Dr. Robles for pelvic mass.ReasonCommentsNew PatientSpecialtyDiagnoses / ProceduresReferred By ContactReferred To Contact Oncology / Gynecologic Oncology Diagnoses Pelvic mass Complex ovarian cyst Other ascites [facility] Gynecology Oncology, A Department of [facility] [address] [place] [address] Phone: tel: fax: [facility] Gynecology Oncology, A Department of [facility] [address] [place] [address] Phone: tel: fax: Referral IDStatusReasonStart DateExpiration DateVisits RequestedVisits [id number] Review Specialty Services Required [id number]-aeYaubfgEvmklkebLET Treatment Consent FormsReasonCommentsPost-op10 day post-opReasonCommentsChemotherapyBCG Bladder SpecialtyDiagnoses / ProceduresReferred By ContactReferred To Contact Diagnoses Malignant neoplasm of overlapping sites of bladder (CMS-HCC) Procedures ND BCG LIVE INTRAVESICAL 1MG ND INSTILL ANTICANCER AGENT IN BLADDER Anayeli Grissom MD [address] [place] [address] Phone: tel: fax: Anayeli Grissom MD [address] [place] [address] Phone: tel: fax: Referral IDStatusReasonStselbyville DateExpiration DateVisits RequestedVisits [id number]/10/202511/10/202655 Goals (unrecognized section and content) Goals may [...] BE BASED ON THE PRIMARY CLINICAL RECORDS. [facility] [employer] [facility]. provides no warranty or guarantee of the accuracy or completeness of information in this document.
--- OUTSIDE RECORDS SUMMARY | 2025-03-25 07:34 | XMS_ITS | Patient Health Record ---
Author Organization [facility] in [place] Address [address] [place] [address] Care Team Providers Care Society Reporter Name Role Phone Ml GATES, Ranjana Primary Care Provider Unavailab le Emily Robles Unavailable [phone] EMILY ROBLES Unavailable [phone] Results Component Value Reference Range Notes PET skull to mid thigh (Not yet reviewed by provider) Interpretation: Performing Lab: Notes/Report: Source Facility: [place] [address] PET Report Signed Patient: YAA GARCIA MR#: [id number] : 1950 Acct:[id number] Age/Sex: 74 / F ADM Date: 01/14/25 Loc: PETCT Attending Dr: Emily Robles M.D. Ordering Physician: Emily Robles M.D. Date of Service: 01/14/25 Procedure(s): PET skull to mid thigh Accession Number(s): [id number] cc: Ranjana Bull M.D.; Emily Robles M.D. The [place] [id number] Patient Name: YAA GARCIA MRN: [id number] date: 1950 Sex: F Assigned Patient Location: PETCT Current Patient Location: Accession/Order Number: [id number] Exam Date: 01/14/2025 15:53 Report Date: 01/15/2025 10:46 At the request of: EMILY ROBLES MD Procedure: PET skull to mid thigh PET/CT WITH FUSION COMPARISON: Colorectal cancer COMPARISON: CT chest 11/27/2024 and [facility] abdomen pelvis 12/11/2024 Following the intravenous administration [...] the pelvis. There is left-sided diverticular disease. PET/PET skull to mid thigh IMPRESSION: ABDOMINAL LYMPH NODES WITH MILD ASSOCIATED INCREASED FDG UPTAKE. NO HYPERMETABOLISM ASSOCIATED WITH THE RECTUM. ENLARGING LEFT PLEURAL EFFUSION. COMPLICATED CYSTIC PELVIC MASS, UNDETERMINED ORIGIN. PELVIC ULTRASOUND COULD BE CONSIDERED. CIRRHOTIC APPEARING LIVER AND SMALL AMOUNT OF ASCITES. Impression dictated by: Clarisa Neal M.D. 01/15/2025 10:46 AM Dictation Location: [place] [address] Electronically authenticated by: [id number] Y Date: 01/15/2025 10:46 Dictated By: Clarisa Neal M.D. Signed By: 01/15/25 1049 DD/ 1046 TD/TT: School Bus Inspector: IRON AND TIBC (Not yet revie wed by provider) Interpretation: Performing Lab: Notes/Report: [facility] , Iron 35.0 50.0-170.0 ug/dL Total Iron Binding Wbgmmodf736.0250.0-450.0 ug/dLPercent Iron Saturation9.7 Performing Lab:see noteML - [facility] LBUS pelvis w/ transvaginal (Not yet reviewed by provider) Interpretation: Performing Lab: Notes/Report: Source Facility: [place] [address] [place] [address] Ultrasound Report Signed Patient: YAA GARCIA MR#: [id number] : 1950 Acct:[id number] Age/Sex: 74 / F ADM Date: 01/24/25 Loc: MRI Attending Dr: Emily Robles M.D. Ordering Physician: Emily Robles M.D. Date of Service: 01/24/25 Procedure(s): US pelvis w/ transvaginal Accession Number(s): [id number] cc: Ranjana Bull M.D.; Emily Robles M.D. [place] [id number] Patient Name: YAA GARCIA MRN: [id number] date: 1950 Sex: F Assigned Patient Location: MRI Current Patient Location: MRI Accession/Order Number: [id number] Exam Date: 01/24/2025 10:40 Report Date: 01/24/2025 11:36 At the request of: EMILY ROBLES MD Procedure: US pelvis w/ transvaginal ULTRASOUND PELVIS WITH TRANSVAGINAL CLINICAL DATA: Follow-up cystic pelvic mass on PET/CT. Prior hysterectomy. COMPARISON: PET/CT 01/14/2025 Real-time ultrasound evaluation the pelvis was performed utilizing both a transabdominal and transvaginal approach. TRANSABDOMINAL: The uterus is not identified, compatible [...] a small amount of free pelvic fluid. US/US pelvis w/ transvaginal IMPRESSION: PRIOR HYSTERECTOMY. LARGE, MILDLY COMPLEX CYSTIC PELVIC MASS, DESCRIBED. THIS IS PROBABLY OVARIAN IN ORIGIN. BENIGN ETIOLOGIES SUCH CYSTADENOMA ARE FAVORED HOWEVER GYNECOLOGIC FOLLOW-UP WILL BE NEEDED TO EXCLUDE ANY POSSIBILITY OF MALIGNANCY. SMALL AMOUNT OF FREE PELVIC FLUID. Impression dictated by: Clarisa Neal M.D. 01/24/2025 11:36 AM Dictation Location: [place] [address] Electronically authenticated by: [id number] Y Date: 01/24/2025 11:36 Dictated By: Clarisa Neal M.D. Signed By: 01/24/25 1138 DD/ 1136 TD/TT: School Bus Inspector:MR dave wo/w salvatore (Not yet reviewed by provider) Interpretation: Performing Lab: Notes/Report: Source Facility: [facility]-[address] [place] [address] Magnetic Resonance Report Signed Patient: YAA GARCIA MR#: [id number] : 1950 Acct:[id number] Age/Sex: 74 / F ADM Date: 01/24/25 Loc: MRI Attending Dr: Emily Robles M.D. Ordering Physician: Emily Robles M.D. Date of Service: 01/24/25 Procedure(s): MR abdomen wo/w con Accession Number(s): [id number] cc: Ranjana Bull M.D.; Emily Robles M.D. [place] [id number] Patient Name: YAA GARCIA MRN: [id number] date: 1950 Sex: F Assigned Patient Location: MRI Current Patient Location: Accession/Order Number: [id number] Exam Date: 01/24/2025 09:47 Report Date: 01/25/2025 17:22 At the request of: EMILY ROBLES MD Procedure: MR abdomen wo/w con MR abdomen wo/w con 01/24/2025 10:53 AM SIGNS AND SYMPTOMS: Malignant Neoplasm Of Bladder, [...] Within normal limits. Bones: Within normal limits. MR/MR abdomen wo/w con IMPRESSION: There is partial visualization of a [...] by: Vasile Ragsdale M.D. 01/25/2025 5:22 PM Dictation Location: [place] [address] Electronically authenticated by: [id number] Y Date: 01/25/2025 17:22 Dictated By: Vasile Ragsdale M.D. Signed By: 01/25/251724 DD/ 21 TD/TT: School Bus Inspector:PROF Aguilar(COMP METB) (Not yet reviewed by provider) Interpretation: Performing Lab: Notes/Report: [facility] ,Vlohud697891-254 mmol/LPotassium3.53.5-5.1 mmol/YNkxomprh11267-258 mmol/LCarbon Dkdpuyr14.921.0-32.0 mmol/LAnion Gap11.3Eckmcxj58392-094 mg/dLBlood Urea Najhdylr31.07.0-18.0 mg/dLCreatinine1.090.55-1.02 mg/dLEstimated GFR ( Knaxqhg47>=60 mL/min/1.73m 2Estimated GFR (Non- Ame49>=60 mL/min/1.73m 2 BUN Creatinine Ratio14.3Klpvkmb9.08.5-10.1 mg/dLBilirubin Total1.10.2-1.0 mg/dL Aspartate Amino Tpnyyyxqfxo92499-99 U/LAlanine Vlruxgjykegbsmaz6679-54 U/L Alkaline Xgqafycfpeb53436-566 U/LTotal Xujqydo23.76.4-8.2 g/dLAlbumin Level2.9 3.4-5.0 g/dLGlobulin8.8Albumin Globulin Ratio0.3Performing Lab:see noteML - [facility] LBFERRITIN (Not yet reviewed by provider) Interpretation: Performing Lab: Notes/Report: [facility] ,Gybbsoqu57.08.0-252.0 ng/mLPerforming Lab:see noteML - [facility] LB CRP (Not yet reviewed by provider) Interpretation: Performing Lab: Notes/Report: [facility] ,C Reactive Protein3.40<=0.50 mg/dLPerforming Lab:see noteML - [facility] LBCBC AUTO DIFF (Not yet reviewed by provider) Interpretation: Performing Lab: Notes/Report: [facility] ,White Blood Count5.54.0-11.0 10 3/uLRed Blood Count3.844.20-5.40 10 6/uL Hemoglobin9.412.0-16.0 g/nHPsntqaswcr38.136.0-48.0 %Mean Corpuscular Zyqlsu86.4 81.0-99.0 fLMean Corpuscular Xvuqmhduie10.526.7-34.0 pgMean Corpuscular HGB Conc 31.229.9-35.2 g/dLRed Cell Distribution Width17.611.0-15.0 %Platelet Rkpzw845 150-450 10 3/uLMean Platelet Dnvqdo30.29.5-13.5 fLNeutrophils Percent Auto65.2 43.0-75.0 %Lymphocytes Percent Auto27.020.5-60.0 %Monocytes Percent Auto6.71.7- 12.0 %Eosinophils Percent Auto0.50.9-7.0 %Basophils Percent Auto0.40.2-2.0 % Immature Granulocytes Pct Auto0.20.0-0.5 %Neutrophils Absolute Auto3.61.4-6.5 10 3/uLLymphocytes Absolute Auto1.51.2-3.8 10 3/uLMonocytes Absolute Auto0.40.3-0.8 10 3/uLEosinophils Absolute Auto0.00.0-0.7 10 3/uLBasophils Absolute Auto0.00.0- 0.1 10 3/uLImmature Granulocytes Abs Auto0.010.00-0.03 10 3/uLPerforming Lab:see noteML - [facility] LBAFP, Serum, Tumor Marker (Not yet reviewed by provider) Interpretation: Performing Lab: Notes/Report: [facility] ,AFP, Serum, Tumor Marker3.30.0-9.2 ng/mL [facility] Electrochemiluminescence Immunoassay (ECLIA) Values obtained with different assay methods or kits cannot be used interchangeably. Results cannot be interpreted as absolute evidence of the presence or absence of malignant disease. This test is not interpretable in females. Performed at: - [facility] [id number] Insert Molding Operator: Cm Purcell PhD, Phone: [phone] Performing Lab:see noteLC - [facility] LBPROF 14(COMP METB) (Not yet reviewed by provider) Interpretation: Performing Lab: Notes/Report: [facility] ,Ifktzz721548-724 mmol/LPotassium3.93.5-5.1 mmol/ZAbkydwbm46690-744 mmol/LCarbon Gtlfiyv52.021.0-32.0 mmol/LAnion Gap9.3Geqmqdl09665-290 mg/dLBlood Urea Nitrogen 14.07.0-18.0 mg/dLCreatinine1.090.55-1.02 mg/dLEstimated GFR ( Myhflbe91 >=60 mL/min/1.73m 2Estimated GFR (Non- Ame49>=60 mL/min/1.73m 2BUN Creatinine Ratio12.9Jtudsta5.48.5-10.1 mg/dLBilirubin Total1.00.2-1.0 mg/dL Aspartate Amino Nbyydhlfdvw42862-65 U/LAlanine Ovzyqvtxmdwvoltb7167-53 U/L Alkaline Ymybckqqoma11538-504 U/LTotal Cvxzqdl94.96.4-8.2 g/dLAlbumin Level3.1 3.4-5.0 g/dLGlobulin8.8Albumin Globulin Ratio0.4Performing Lab:see noteML - [facility] LBCBC AUTO DIFF (Not yet reviewed by provider) Interpretation: Performing Lab: Notes/Report: [facility] ,White Blood Count6.64.0-11.0 10 3/uLRed Blood Count4.054.20-5.40 10 6/uL Zvxhxoqgis38.112.0-16.0 g/pXTslkkvxjte35.236.0-48.0 %Mean Corpuscular Jvjcap33.5 81.0-99.0 fLMean Corpuscular Mraduqmrph19.926.7-34.0 pgMean Corpuscular HGB Conc 31.429.9-35.2 g/dLRed Cell Distribution Width16.611.0-15.0 %Platelet Hafij977 150-450 10 3/uLMean Platelet Uovctv77.09.5-13.5 fLNeutrophils Percent Auto65.1 43.0-75.0 %Lymphocytes Percent Auto27.120.5-60.0 %Monocytes Percent Auto6.81.7- 12.0 %Eosinophils Percent Auto0.60.9-7.0 %Basophils Percent Auto0.20.2-2.0 % Immature Granulocytes Pct Auto0.20.0-0.5 %Neutrophils Absolute Auto4.31.4-6.5 10 3/uLLymphocytes Absolute Auto1.81.2-3.8 10 3/uLMonocytes Absolute Auto0.50.3-0.8 10 3/uLEosinophils Absolute Auto0.00.0-0.7 10 3/uLBasophils Absolute Auto0.00.0- 0.1 10 3/uLImmature Granulocytes Abs Auto0.010.00-0.03 10 3/uLPerforming Lab:see noteML - [facility] LBVitamin B12 (Not yet reviewed by provider) Interpretation: Performing Lab: Notes/Report: [facility] ,Vitamin M58253828-6851 pg/mL Performed at: - [facility] [id number] Insert Molding Operator: Cm Purcell PhD, Phone: [phone] Performing Lab:see noteLC - [facility] LBIFE, PE and FLC, Serum (Not yet reviewed by provider) Interpretation: Performing Lab: Notes/Report: [facility] ,Immunoglobulin G, Qn, Cgqbq0266341-2617 mg/dL Results confirmed on dilution. Immunoglobulin A, Qn, Qgmlo90828-717 mg/dLImmunoglobulin M, Qn, Bbazo92634-094 mg/dLProtein, Total10.56.0-8.5 g/dLAlbumin2.72.9-4.4 g/oRFnmxz-8-Ndmofyec1.60.0- 0.4 g/nTBwcpa-5-Qwhezisb3.80.4-1.0 g/dLBeta Globulin1.70.7-1.3 g/dLGamma Globulin4.70.4-1.8 g/dLM-SpikeNot ObservedNot Observed g/dLGlobulin, Total7.8 2.2-3.9 g/dLA/G Ratio0.40.7-1.7Immunofixation Result, SerumComment.No monoclonality detected.Please note:Comment. Protein electrophoresis scan will follow via computer, mail, or cycle repairer delivery. Free [place] Lt Chains,S135.43.3-19.4 mg/LFree Lambda Lt Chains,S184.85.7-26.3 mg/LKappa/Lambda Ratio,S0.730.26-1.65 Performed at: [address] [id number] Insert Molding Operator: Cm Purcell PhD, Phone: [phone] Performing Lab:see noteLC - [facility] LBErythrocyte Sedimentation Rate (Not yet reviewed by provider) Interpretation: Performing Lab: Notes/Report: [facility] ,Erythrocyte Sedimentation Pcsf785<=30 mm/hrPerforming Lab:see noteML - [facility] LBCA 19-9 (Not yet reviewed by provider) Interpretation: Performing Lab: Notes/Report: [facility] ,CA 19-9960-35 U/mL [facility] Electrochemiluminescence Immunoassay (ECLIA) Values obtained with different assay methods or kits cannot be used interchangeably. Results cannot be interpreted as absolute evidence of the presence or absence of malignant disease. Performed at: [address] [id number] Insert Molding Operator: Cm Purcell PhD, Phone: [phone] Performing Lab:see note - [facility] LBCEA (Not yet reviewed by provider) Interpretation: Performing Lab: Notes/Report: [facility] ,CEA1.50.0-4.7 ng/mL Nonsmokers <3.9 Smokers <5.6 [facility] Electrochemiluminescence Immunoassay (ECLIA) Values obtained with different assay methods or kits cannot be used interchangeably. Results cannot be interpreted as absolute evidence of the presence or absence of malignant disease. Performing Lab:see noteLC - [facility] LB Reason For Referral No Information Encounters Encounter Location Date Provider Diagnosis [facility] Oncology [address] [place] [address] 01/01/2025 [facility] [address] [place] [address]/ [facility] [address] [place] [address]/[facility] [address] [place] [address]/[facility] Plan Of Treatment Pending Test Test Name Order Date CBC AUTO DIFF 01/01/2025 CBC AUTO DIFF 01/22/2025 CRP 01/22/2025 FERRITIN 01/22/2025 IRON AND TIBC 01/22/2025 PROF 14(COMP METB) 01/22/2025 PROF 14(COMP METB) 01/01/2025 Erythrocyte Sedimentation Rate PET skull to mid thigh 01/15/2025 US pelvis w/ transvaginal 01/24/2025 CEA 01/01/2025 CA 19-9 01/01/2025 MR abdomen wo/w con 01/25/2025 AFP, Serum, Tumor Marker 01/01/2025 DL, PE and FLC, Serum 01/22/2025 Vitamin B12 01/22/2025 Insurance Providers Payer Name Payer Address Payer Phone Subscriber Number Group Number Insured Name Patient Relationship to Insured Coverage Start Date Coverage End Date [place] [address] [place] [address] [id number] Tessy Garcia - patient is the iceitna31 2017
[2025-03-25 08:17] LABS: Anion Gap 12.8; Blood Urea Nitrogen 13.0 mg/dL (7.0-18.0); Calcium 8.5 mg/dL (8.5-10.1); Carbon Dioxide 26.4 mmol/L (21.0-32.0); Chloride 100 mmol/L (98-107); Estimated GFR (African America 48 (>=60 mL/min/1.73m^2); Estimated GFR (Non-African Ame 40 (>=60 mL/min/1.73m^2); Glucose 106 mg/dL (74-106); Potassium 4.2 mmol/L (3.5-5.1); Sodium 135 mmol/L (136-145)
== END 2025-03-25 07:26 | disposition home or self-care (01) ==
LOC: LAB 07:27
PROVIDERS: PCP Family Medicine; Visit Provider Internal Medicine
DX: K72.90 Hepatic failure, unspecified without coma (principal); K74.60 Unspecified cirrhosis of liver; K74.3 Primary biliary cirrhosis; R18.8 Other ascites
CPT/HCPCS: 36415; 80048